=== PATIENT | female | born 1980 | race Caucasian/White ===

== ENCOUNTER 2019-11-07 10:01 | Outpatient (CLI) | payer MEDICAID, SELFPAY ==
--- NOTE | 2019-11-07 | XR_ITS ---
WS: [id number] FOOT LEFT TECHNIQUE: 3 views of the left foot CLINICAL INFORMATION: LEFT FOOT PAIN COMPARISON: None. FINDINGS: No evidence of acute fracture or dislocation. Normal tarsal metatarsal alignment. Normal calcaneus. N ormal visualized talar dome. No acute findings. Prominent plantar calcaneal spurring. XR/XR foot LT min 3V* [id number] IMPRESSION: 1. Fifth metatarsal normal in appearance. No acute fractures. 2. Prominent plantar calcaneal spurring.
== END 2019-11-07 10:02 | disposition home or self-care (01) ==
LOC: RADOUTREAD 12:19
PROVIDERS: Family Provider Family Medicine; PCP Family Medicine; Visit Provider Family Medicine
DX: M77.32 Calcaneal spur, left foot (principal); M79.672 Pain in left foot

== ENCOUNTER → 2019-11-26 08:00 | Outpatient (BNVA) | payer MEDICAID, SELFPAY | PROVIDERS: Family Provider Family Medicine; PCP Family Medicine; Visit Provider Nurse Practitioner | DX: F43.12 Post-traumatic stress disorder, chronic (principal); G47.30 Sleep apnea, unspecified; F60.3 Borderline personality disorder | CPT/HCPCS: 99213 ==

== ENCOUNTER → 2019-11-29 10:21 | Outpatient (BNVA) | payer MEDICAID, SELFPAY | PROVIDERS: Family Provider Family Medicine; PCP Family Medicine; Visit Provider Social Worker | DX: F43.12 Post-traumatic stress disorder, chronic (principal); F60.3 Borderline personality disorder | CPT/HCPCS: 90834 ==

== ENCOUNTER → 2019-12-10 11:40 | Outpatient (BNVA) | payer OTHER, SELFPAY | PROVIDERS: Family Provider Family Medicine; PCP Family Medicine; Visit Provider Nurse Practitioner | DX: F60.3 Borderline personality disorder (principal); Z79.899 Other long term (current) drug therapy | CPT/HCPCS: 80061; 83036 ==

== ENCOUNTER → 2020-01-02 08:44 | Outpatient (BNVA) | payer MEDICAID, SELFPAY | PROVIDERS: Family Provider Family Medicine; PCP Family Medicine; Visit Provider Specialist | DX: G43.711 Chronic migraine without aura, intractable, with status migrainosus (principal); F17.210 Nicotine dependence, cigarettes, uncomplicated; J06.9 Acute upper respiratory infection, unspecified | CPT/HCPCS: 96372; 99213; J1885 ==

== ENCOUNTER 2020-01-04 19:09 | Emergency (ER) | payer MEDICAID, SELFPAY ==
[2019-12-11 12:15] VITALS: BP 149/98; BMI 57.3
[2020-01-04 19:22] VITALS: BP 160/106; PULSE 101; RESP 18; TEMP 36.9; O2SAT 98; BMI 56.7
--- NOTE | 2020-01-04 19:44 | W.ED.FEMALGU ---
HPI - Female Genitourinary General: Chief complaint: Urogenital-Female Stated complaint: labia injury Time Seen by Provider: 01/04/20 19:37 History of Present Illness: HPI Narrative: Patient has a pain flare down in her pubic area where she shaves. Onset (ago): day(s) Location of symptoms: other (Pubic area) Severity: mild Female Urogenital Radiation: Non-Radiating Quality of pain: sharp Consistency: constant Date of Last Menstrual Period: 08/28/18 Review of Systems Const: Denies: fever or chills Skin/Breast: Reports: skin tenderness and skin swelling PFS ED PFSH: Social History Smoking and tobacco status: current every day smoker cigarettes Packs smoked per day: 0.5 Years cigarettes smoked: 23 Quit status (tobacco): has tried quititng Second hand smoke exposure: Yes Smoking risk assessment/counseling performed?: Yes Tobacco counseling given: counseling >3 minutes Alcohol intake: current Alcohol intake frequency: holidays/special occasions only Desire information about alcohol rehabilitation?: No Desire information about substance/drug rehabilitation?: No Counseling given: Yes Adopted: No Caregiver/support person: No Lives independently: Yes Household members: children Housing: Manufactured/Mobile home Marital status: Number of children: 3 Number of grandchildren: 0 Highest education level completed: Some College, No Degree 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, 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, 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 service: No Current occupational status: disabled Pets and animals: Yes Pets & animals: cat(s) and dog(s) History of recent travel: No Leisure activites: music, games and other Leisure activities details: color and play cards Sexually active: No Current gender identity: Female Carolee/Buddhist: Other Special carolee needs: No ( Judie ) Agree to transfusion: Yes Financial difficulty paying for basics: Somewhat Hard Female Reproductive History: Date of last menstrual period: 08/28/18 Para: 3 Spontaneous abortions: No Physical Exam Const: COMMON NORMALS: apparent distress : EXTERNAL FEMALE EXAM: Yes other (With the nurse in the room [place]. I examined her that sore in her pubic area up north of the labia on her left side she has a small pimple from shaving red irritated very small.) Psych: COMMON NORMALS: mental status grossly normal Course Vital Signs: Vital signs: Vital Signs Temperature 98.5 F 01/04/20 19:22 Pulse Rate 101 H 01/04/20 19:22 Respiratory Rate 18 01/04/20 19:22 Blood Pressure 160/106 01/04/20 19:22 Pulse Oximetry 98 01/04/20 19:22 Discharge Plan Discharge Prescriptions: No Action benzonatate [Tessalon Perles] 100 mg capsule 100 mg PO TID RF: 0 (DME) nebulizers Misc See Rx Instructions .ROUTE .MEDSUPPLY Qty: 1 RF: 0 topiramate [Topamax] 100 mg tablet 100 mg PO DAILY Qty: 30 RF: 6 sumatriptan succinate [Imitrex] 100 mg tablet 100 mg PO Q2H PRN (Reason: migraine headache) Qty: 9 RF: 6 Aimovig Autoinjector 140 mg/mL auto-injector 140 mg SUBCUT .MONTHLY Qty: 1 RF: 6 lorazepam [Ativan] 1 mg tablet 1 mg PO BID PRNRF: 0 aripiprazole [Abilify] 5 mg tablet 5 mg PO DAILY Qty: 30 RF: 1 duloxetine [Cymbalta] 60 mg capsule,delayed release(DR/EC) 60 mg PO BID Qty: 60 RF: 1 ropinirole [Requip XL] 2 mg tablet extended release 24 hr 2 mg PO BID Qty: 60 RF: 1 albuterol sulfate [ProAir HFA] 90 mcg/actuation HFA aerosol inhaler 2 puff INHALATION Q6H PRNRF: 0 Coding Level of Care Code ED 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
[2020-01-04] MEDS: sulfamethoxazole-trimeth DS 160-800 mg Tablet 1 TAB PO (20:08)
[2020-01-04 20:16] VITALS: PULSE 72; RESP 16; TEMP 36.9; O2SAT 97
== END 2020-01-04 20:18 | disposition home or self-care (01) ==
LOC: ER 19:51
PROVIDERS: Emergency Provider Nurse Practitioner Family; Family Provider Family Medicine; PCP Family Medicine
DX: R23.8 Other skin changes (principal); F17.210 Nicotine dependence, cigarettes, uncomplicated
CPT/HCPCS: 12345; 99281; 99282

== ENCOUNTER 2020-01-14 14:31 | Outpatient (CLI) | payer MEDICAID, SELFPAY ==
[2019-12-11 12:15] VITALS: BP 149/98; BMI 57.3
== END 2020-01-14 14:32 | disposition home or self-care (01) ==
LOC: SPT 14:31
PROVIDERS: Family Provider Family Medicine; PCP Family Medicine; Visit Provider Podiatrist Foot & Ankle Surgery
DX: Z46.89 Encounter for fitting and adjustment of other specified devices (principal); S86.012S Strain of left Achilles tendon, sequela; X58.XXXS Exposure to other specified factors, sequela
CPT/HCPCS: L4397

== ENCOUNTER → 2020-02-06 07:40 | Outpatient (BNVA) | payer MEDICAID, SELFPAY | PROVIDERS: Family Provider Family Medicine; PCP Family Medicine; Visit Provider Social Worker | DX: F43.12 Post-traumatic stress disorder, chronic (principal); F60.3 Borderline personality disorder | CPT/HCPCS: 90834 ==

== ENCOUNTER → 2020-02-26 07:38 | Outpatient (BNVA) | payer MEDICAID, SELFPAY | PROVIDERS: Family Provider Family Medicine; PCP Family Medicine; Visit Provider Nurse Practitioner | DX: F60.3 Borderline personality disorder (principal); G47.30 Sleep apnea, unspecified; F43.12 Post-traumatic stress disorder, chronic | CPT/HCPCS: 99213 ==

== ENCOUNTER → 2020-03-19 08:53 | Outpatient (BNVA) | payer MEDICAID, SELFPAY ==
[2019-12-11 12:15] VITALS: BP 149/98; BMI 57.3
== END ==
PROVIDERS: Family Provider Family Medicine; PCP Family Medicine; Visit Provider Podiatrist Foot & Ankle Surgery
DX: S86.012S Strain of left Achilles tendon, sequela (principal); X58.XXXS Exposure to other specified factors, sequela; M77.32 Calcaneal spur, left foot
CPT/HCPCS: 73650

== ENCOUNTER 2020-03-24 06:48 | Outpatient (CLI) | payer MEDICAID, SELFPAY ==
[2019-12-11 12:15] VITALS: BP 149/98; BMI 57.3
--- NOTE | 2020-03-24 07:15 | MR_ITS ---
WS: [id number] MRI LEFT FOOT without CONTRAST. COMPARISON: 06/21/2014 Multiplanar, multisequence imaging is performed without contrast. Marker is placed over the posterior foot at the level of the distal calcaneus. No complete Achilles t endon tear. There is increased signal involving greater than 50% of the width of the Achilles tendon at its insertion site to the calcaneus. The medial portion of the tendon is still intact. There is a small amount of increased T2 signal in the central tendon. There is a very small amount of increased fluid anterior to the distal tendon. Small amount of edema surrounding the distal Achilles tendon an d within the soft tissues. No marrow edema. There is mild enlargement and protuberance of the peroneal tubercle. Resulting in mild displacement o f the peroneal tendons. There is slight intermediate signal on the T1 sequences within the peroneal b molly tendon as it passes by the tubercle. There is a very small amount of increased T2 signal within the posterior surface of the peroneus brevis suspicious for split tear. MR/MR foot LT wo con* [id number] IMPRESSION: 1. High-grade insertional site tear of the Achilles tendon. Tear extends to gr eater than 50% of the insertion site and greatest laterally. 2. Tendinopathy with partial split tear in the peroneus brevis near the promi nent peroneal tubercle.
== END 2020-03-24 06:49 | disposition home or self-care (01) ==
LOC: RADSHAW 06:50
PROVIDERS: Family Provider Family Medicine; PCP Family Medicine; Visit Provider Podiatrist Foot & Ankle Surgery
DX: S86.012A Strain of left Achilles tendon, initial encounter (principal); X58.XXXA Exposure to other specified factors, initial encounter
CPT/HCPCS: 73718

== ENCOUNTER 2020-03-28 06:00 | Day surgery (SDC) | payer MEDICAID, SELFPAY ==
[2019-12-11 12:15] VITALS: BP 149/98; BMI 57.3
[2020-03-27 11:11] VITALS: BMI 56.7
[2020-03-28] VITALS (11 sets, daily range): BP systolic 108–137; BP diastolic 74–97; PULSE 80–100; RESP 14–30; TEMP 36–36.3; O2SAT 95–100
--- NOTE | 2020-03-28 | XR_ITS ---
WS: [id number] XR calcaneus LT min 2V [id number] REASON FOR EXAM: LEFT achilles heel repair FINDINGS: Interoperative localization film shows a large calcaneal spur. Appears be posterior changes along the posterior calcaneus. XR/XR calcaneus LT min 2V [id number] IMPRESSION: . Postop changes near the Achilles insertion.
[2020-03-28] MEDS: sodium chloride 0.9% 1,000 ML 30 ML IV (06:49)
--- NOTE | 2020-03-28 06:50 | P.HPUD_ITS ---
Surgery/Procedure H&P Update DATE OF PROCEDURE: March 28, 2020 DATE H&P PERFORMED: 03/19/20 H&P UPDATE INFORMATION: I have reviewed H&P completed within last 30 days, I have examined patient prior to procedure, No changes to prior documentation and H&P is in [facility] [place] EMR on date indicated PREOP DIAGNOSIS: Left Achilles tendon tear PLANNED PROCEDURE: Operation Date: 03/28/20 07:20 Proposed Procedures p achilles Tendon Repair Foot with calcaneal exostectomy possible flexor hallucis longus tendon transfer, left [id number]/m76.62(Left) - Sonny Aponte DPM
--- NOTE | 2020-03-28 06:51 | P.ANESASSM_ITS ---
Pre-Anesthetic Assessment Pre-Anesthetic Assessment: Height/Weight: Height 1.73 m Weight 169.19 kg Temp Pulse Resp BP Pulse Ox 97.4 F L 82 18 123/84 97 03/28/20 06:22 03/28/20 06:22 03/28/20 06:22 03/28/20 06:22 03/28/20 06:22 Preop Diagnosis: Left Achilles tendon tear Proposed Procedure: Operation Date: 03/28/20 07:20 Proposed Procedures p achilles Tendon Repair Foot with calcaneal exostectomy [id number]/m76.62(Left) - Sonny Aponte DPM Last intake: Intake Last Liquid Date 03/27/20 Last Liquid Time 21:00 Last Solid Date 03/27/20 Last Solid Time 21:00 Social: Social History: Tobacco and No alcohol Exam: Pre-Anes Outpt Exam: alert, oriented x 3 and regular rate & rhythm Additional Exam Findings (including area of procedure): BS distant Airway: Submandibular: WNL Cervical ROM: WNL MP: 2 Dentition: False (upper and lower) History/ROS: No significant history except as noted Pulmonary: Pulmonary: COPD, FOSTER and Sleep apnea CV/HEM: CV/HEM: HTN : : None reported Hepatic: Hepatic: None reported GI: GI: None reported Metabolic: Metabolic: Morbid obesity Musc/skel: Musc/skel: Lower Back Pain and OA/DJD Neuropsych: Neuropsych: Anxiety, Bipolar, Depression and Neuropathy (feet) Anesthetic Plan: ASA status: 3 Anesthesia: Anesthesia Evaluation, General and MAC Risk of > 500 ml blood loss (7ml/kg in children): No Meds/Allergies Current Medications: Current Medications Generic Name Dose Route Start Last Admin Trade Name Freq PRN Reason Stop Dose Admin Sodium Chloride 1,000 mls @ 30 ml s/hr 03/28/20 06:15 03/28/20 06:49 Sodium Chloride 0.9% IV 03/29/20 06:14 30 mls/hr .Q24H JUD Administration PFSH Anesthesia PFSH: Medical History (Updated 03/28/20 @ 06:51 by Herbie Powell MD) Borderline personality disorder Common migraine with intractable migraine Post-traumatic stress disorder, chronic Sleep apnea, unspecified Surgical History History of bladder repair surgery History of endometrial ablation History of hysterectomy History of shoulder surgery History of tubal ligation Family History Brother Diabetes Mother , Acute leukemia at age 42 Cancer Father Cancer Stage IV Kidney Cancer Social History Smoking and tobacco status: current every day smoker cigarettes Packs smoked per day: 0.5 Years cigarettes smoked: 23 Quit status (tobacco): has tried quititng Second hand smoke exposure: Yes Smoking risk assessment/counseling performed?: Yes Tobacco counseling given: counseling >3 minutes Alcohol intake: current Alcohol intake frequency: holidays/special occasions only Desire information about alcohol rehabilitation?: No Desire information about substance/drug rehabilitation?: No Counseling given: Yes Adopted: No Caregiver/support person: No Lives independently: Yes Household members: children Housing: Manufactured/Mobile home Marital status: Number of children: 3 Number of grandchildren: 0 Highest education level completed: Some College, No Degree 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, 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, 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
--- NOTE | 2020-03-28 08:45 | PM.OP ---
Operative Report Date of procedure: March 28, 2020 Pre-op Diagnosis: Left Achilles tendon tear Post-op diagnosis: same Post-op Findings: Partial tear of left Achilles tendon at insertion. Procedure Done: Achilles tendon repair left. Implants: Arthrex speed bridge, 3-0 Vicryl, 4-0 Vicryl, 4-0 nylon Specimens removed/disposition: None Pathology: none sent Surgeon: Sonny Aponte D.P.M. Pediatric Neurologist: French Anesthesia: General Estimated blood loss: 5 mL Tourniquet time: 62 minutes IV fluids: None Urine output: None Complications: None Findings: Partial tear of left Achilles tendon less than 50% just proximal to insertion. Condition: stable Disposition: PACU Brief History: Patient has had persistent pain at left Achilles tendon near insertion with an osseous bump, has failed [id number] NSAIDs, oral steroids, heel lift, offloading with cam boot, physical therapy has had persistent and progressive pain to the point where she has difficulty enjoying hobbies, recreation and caring her everyday activities. She would like to proceed with surgical intervention with repair of her Achilles tendon, and MRI shows high-grade tear just proximal to insertion. Risks include pain, bleeding, numbness, infection, surgical site dehiscence, Achilles tendon rupture, equinus contracture, damage to adjacent soft tissue structures, neuritis, need for further surgical intervention. Patient is agreeable and wishes to proceed signed consent, initialed left lower extremity. Procedure: Under mild sedation the patient was brought to the operating room and placed on the operating table in supine position. A timeout was performed. Anesthesia was administered by the anesthesia service. Well-padded pneumatic tourniquet was applied to the left high calf. Patient was placed in a prone position with appropriate padding and offloading. Left lower extremity was extenuated with an Esmarch bandage and the tourniquet inflated to 250 mmHg. Attention was directed to the posterior left Achilles where a linear longitudinal incision was made approximately 7 cm in length at distal Achilles coursing to its insertion at posterior calcaneus. Dissection was carried down sharply down to the peritenon which was incised longitudinally exposing the Achilles tendon. There was degeneration consistent with mucoid degeneration just proximal to insertion more prominent laterally. This was sharply debrided. The Achilles tendon was sharply excised and reflected off the posterior calcaneus. A fluid-filled bursa just anterior this was sharply excised once visualized with clean healthy margin. Achilles tendon was debrided of all devitalized tissue down to healthy tendon. Weight was passed from operative field. Sagittal saw utilized to resect the dorsal osseous prominence at the calcaneal tubercle all rough edges were smoothed with a power rasp. Incision site was flushed with copious amounts of sterile saline solution. Achilles tendon was reattached to healthy cancellous bone utilizing Arthrex speed bridge with excellent tendon to cancellous bone interface, tendon was pulled out to length and noted to have a stable fixation. Excess fiber tape was cut total of 4 anchors were utilized these were 4.75 anchors utilizing manufacture recommendation of drill, tap and insertion. Further irrigation with saline solution was performed. Peritenon was then reapproximated utilizing 3-0 Vicryl. Subcutaneous tissue closed utilizing 4-0 Vicryl and skin closed utilizing 4-0 nylon. Jumpstart applied at the incision provided by Arthrex in the pill pack. Followed by sterile 4 x 4's, Kerlix and well-padded multilayer compressive posterior splint with the ankle in equinus position. Tourniquet was deflated and a prompt hyperemic response was noted to the distal digits of the left foot. Patient tolerated the procedure well and was transferred to the PACU with vital signs stable and vascular status intact. Following a period of postoperative monitoring she will be discharged home is to remain strict nonweightbearing she does have a knee scooter she was prescribed Percocet 10/325 was brought also provided my cell phone number is to contact me with any postoperative questions or concerns over the weekend.
[2020-03-28] MEDS: fentaNYL 50 mcg/mL INJ 2mL IVP ×2 (09:13→09:18)
== END 2020-03-28 10:12 | disposition home or self-care (01) ==
PROVIDERS: PCP Family Medicine; Visit Provider Podiatrist Foot & Ankle Surgery
PROC: (CPT 27650; principal; 2020-03-28 07:00)
DX: S86.012A Strain of left Achilles tendon, initial encounter (principal); X58.XXXA Exposure to other specified factors, initial encounter; J44.9 Chronic obstructive pulmonary disease, unspecified; G47.30 Sleep apnea, unspecified; I10 Essential (primary) hypertension; E66.01 Morbid (severe) obesity due to excess calories; Z68.43 Body mass index [BMI] 50.0-59.9, adult; M19.90 Unspecified osteoarthritis, unspecified site; F41.9 Anxiety disorder, unspecified; F17.210 Nicotine dependence, cigarettes, uncomplicated
CPT/HCPCS: 27650; 12345; 73650; 76000; C1713; J0330; J0690; J2001; J2405; J2704; J3010; J3490; J7030

== ENCOUNTER 2020-04-05 18:38 | Emergency (ER) | payer MEDICAID, SELFPAY ==
[2019-12-11 12:15] VITALS: BP 149/98; BMI 57.3
[2020-04-05 18:45] VITALS: BP 133/78; PULSE 94; RESP 20; TEMP 36.9; O2SAT 94; BMI 56.7
[2020-04-05 19:19] LABS: Basophils % 0.1 %; Eosinophils # 0.5 10^3/uL (0.0-0.8); Eosinophils % 6.2 %; Hematocrit 38.9 % (37.0-47.0); Hemoglobin 12.2 g/dL (11.5-15.3); Lymphocytes # 1.5 10^3/uL (0.8-4.8); Lymphocytes % 21.2 %; Mean Corpuscular HGB Conc 31.4 g/dL (30.0-36.0); Mean Corpuscular Volume 92.4 fL (81-99); Mean Platelet Volume 9.3 fL (7.4-10.4); Monocytes # 0.4 10^3/uL (0.2-0.9); Neutrophils # 4.9 10^3/uL (1.8-7.7); Neutrophils % 67.1 %; Nucleated Red Blood Cells % 0 %; Platelet Count 209 10^3/cmm (130-400); Red Blood Count 4.21 10^6/uL (4.1-5.3); Red Cell Distribution Width 14.4 % (12.1-15.1); White Blood Count 7.2 10^3/uL (4.0-10.0)
[2020-04-05 19:24] LABS: INR 0.99 (0.8-1.2)
[2020-04-05 19:33] LABS: Alanine Aminotransferase 45 U/L (0-33); Albumin Level 3.7 g/dL (3.5-5.2); Alkaline Phosphatase 77 IU/L (35-105); Anion Gap 13.1 (5-19); Aspartate Amino Transferase 27 U/L (0-32); Blood Urea Nitrogen 13 mg/dL (6-20); Calcium 8.9 mg/dL (8.5-10.5); Carbon Dioxide 26 mmol/L (22-29); Chloride 103 mmol/L (98-107); Glomerular Filtration Rate 110.2 mL/min (90-130); Glucose 108 mg/dL (65-115); Osmolality Calculated 283 mOsm/kg (285-295); Potassium 4.1 mmol/L (3.5-5.1); Sodium 138 mmol/L (136-145); Total Bilirubin 0.2 mg/dL (0.15-1.2); Total Protein 6.7 g/dL (6.6-8.7)
--- NOTE | 2020-04-05 19:36 | ED_ITS ---
HPI - General Adult General: Chief complaint: General Medical Stated complaint: possible clot left leg/phy ref Time Seen by Provider: 04/05/20 19:36 Source: patient Mode of arrival: ambulatory Limitations: no limitations History of Present Illness: HPI narrative: Patient comes in today for complaints of left lower leg pain and swelling. Patient has a history of an Achilles tendon repair and bone spur removal done on 28 March. Patient appears well. Patient appears in moderate pain. Review of Systems General: Reports: 10 or more systems reviewed and unremarkable except in HPI and below Musc: Reports: extremity pain (Left lower leg) PFSH ED PFSH: Medical History (Updated 04/05/20 @ 21:03 by ZUHAIR Ruby) Borderline personality disorder Common migraine with intractable migraine Post-traumatic stress disorder, chronic Sleep apnea, unspecified Surgical History History of bladder repair surgery History of endometrial ablation History of hysterectomy History of shoulder surgery History of tubal ligation Family History Brother Diabetes Mother , Acute leukemia at age 42 Cancer Father Cancer Stage IV Kidney Cancer Social History Smoking and tobacco status: current every day smoker cigarettes Packs smoked per day: 0.5 Years cigarettes smoked: 23 Quit status (tobacco): has tried quititng Second hand smoke exposure: Yes Smoking risk assessment/counseling performed?: Yes Tobacco counseling given: counseling >3 minutes Alcohol intake: current Alcohol intake frequency: holidays/special occasions only Desire information about alcohol rehabilitation?: No Desire information about substance/drug rehabilitation?: No Counseling given: Yes Adopted: No Caregiver/support person: No Lives independently: Yes Household members: children Housing: Manufactured/Mobile home Marital status: Number of children: 3 Number of grandchildren: 0 Highest education level completed: Some College, No Degree 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, 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, 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 service: No Current occupational status: disabled Pets and animals: Yes Pets & animals: cat(s) and dog(s) History of recent travel: No Leisure activites: music, games and other Leisure activities details: color and play cards Sexually active: No Current gender identity: Female Carolee/Temple: Other Special carolee needs: No ( Judie ) Agree to transfusion: Yes Financial difficulty paying for basics: Somewhat Hard Female Reproductive History: Date of last menstrual period: 08/28/18 Para: 3 Spontaneous abortions: No Physical Exam Const: COMMON NORMALS: no acute distress and patient oriented x3 GENERAL APPEARANCE: cooperative HENMT: COMMON NORMALS: normocephalic and Normal external nose present HEAD & SCALP: normal to inspection and normocephalic NOSE: Normal external nose present MOUTH: Normal oral and palatal mucosa present THROAT: posterior oropharynx normal Eye: GENERAL EYE: appearance normal, both eyes and all related structures Neck/C-Spine: COMMON NORMALS: full ROM Lymph: LYMPHATIC: no lymphadenopathy noted Chest: COMMONS NORMALS: normal inspection of the chest Resp: COMMON NORMALS: normal respiratory effort EFFORT & INSPECTION: Yes able to speak in complete sentences Cardio: COMMON NORMALS: regular rate and regular rhythm RATE: regular rate RHYTHM: regular rhythm GI: COMMON NORMALS: non-tender Back/Pelvis: COMMON NORMALS: thoracic and lumbar spine normal to inspection Extremity: NARRATIVE EXTREMITY EXAM: Well-healing wound to the heel of the posterior heel of the left foot. Minimal swelling is noted as compared to the right leg. Pulses are intact. No significant redness or heat is noted to the extremity. Neuro: COMMON NORMALS: patient oriented x3 and moves all extremities Psych: COMMON NORMALS: mental status grossly normal and cooperative Skin: COMMON NORMALS: no rashes or lesions noted GENERAL SKIN EXAM: no rashes or lesions noted Course Vital Signs: Vital signs: Vital Signs Temperature 98.5 F 04/05/20 18:45 Pulse Rate 84 04/05/20 20:00 Respiratory Rate 18 04/05/20 20:00 Blood Pressure 129/66 04/05/20 20:00 Pulse Oximetry 96 04/05/20 20:00 MDM - General Adult MDM Narrative: Medical decision making narrative: Patient comes in today for complaints of pain to the left lower extremity. Patient had surgery on an Achilles tendon rupture about 1 week ago. Patient was having significant and increase and pain and tingling to the leg. Patient talked to her surgeon who recommended she be evaluated in ER for blood clot. Exam noted some increased swelling to the left lower extremity. Surgical wound appeared well approximated without significant redness or drainage. Vital signs were normal. Differential diagnosis includes wound infection, DVT, cellulitis. Laboratory values were significant for a slightly elevated d-dimer. Venous Doppler study was negative for DVT. Reviewed exam with patient with recommendations for treatment and follow-up. Patient reported understanding agreed to plan. Lab Data: Labs: Lab Results 04/05/20 04/05/20 04/05/20 Range/Units 19:13 19:13 19:13 WBC 7.2 (4.0-10.0) 10^3/ uL RBC 4.21 (4.1-5.3) 10^6/u L Hgb 12.2 (11.5-15.3) g/dL Hct 38.9 (37.0-47.0) % MCV 92.4 (81-99) fL MCH 29.0 (28.0-34.0) pg MCHC 31.4 (30.0-36.0) g/dL RDW 14.4 (12.1-15.1) % Plt Count 209 (130-400) 10^3/c mm MPV 9.3 (7.4-10.4) fL Neut % (Auto) 67.1 % Lymph % (Auto) 21.2 % Iron % (Auto) 5.0 % Eos % (Auto) 6.2 % Baso % (Auto) 0.1 % Neut # (Auto) 4.9 (1.8-7.7) 10^3/u L Lymph # (Auto) 1.5 (0.8-4.8) 10^3/u L Iron # (Auto) 0.4 (0.2-0.9) 10^3/u L Eos # (Auto) 0.5 (0.0-0.8) 10^3/u L Baso # (Auto) 0.0 (0.0-0.1) 10^3/u L Nucleated RBC % (a uto) 0 % Nucleated RBCs # 0.0 /100WBC PT 13.40 H (10.5-13.3) SECO NDS INR 0.99 (0.8-1.2) APTT 29.0 (23.9-36.7) SECO NDS D-Dimer 0.60 H (0-0.59) ug/mIFE U Sodium 138 (136-145) mmol/L Potassium 4.1 (3.5-5.1) mmol/L Chloride 103 (98-107) mmol/L Carbon Dioxide 26 (22-29) mmol/L Anion Gap 13.1 (5-19) BUN 13 (6-20) mg/dL Creatinine 0.6 (0.5-0.9) mg/dL GFR Calculation 110.2 (90-130) mL/min Glucose 108 (65-115) mg/dL Calculated Osmolal ity 283 L (285-295) mOsm/k g Calcium 8.9 (8.5-10.5) mg/dL Total Bilirubin 0.2 (0.15-1.2) mg/dL AST 27 (0-32) U/L ALT 45 H (0-33) U/L Alkaline Phosphata se 77 (35-105) IU/L Total Protein 6.7 (6.6-8.7) g/dL Albumin 3.7 (3.5-5.2) g/dL Globulin 3.0 (1.3-4.6) g/dL Discharge Plan Discharge Patient Disposition: Home, Self-Care Clinical Impression: Left leg pain Partial tear of left Achilles tendon Qualifiers: Encounter type: subsequent encounter Qualified Code(s): S86.012D - Strain of left Achilles tendon, subsequent encounter Condition: Stable Prescriptions: No Action (DME) nebulizers Misc See Rx Instructions .ROUTE .MEDSUPPLY Qty: 1 RF: 0 topiramate [Topamax] 100 mg tablet 100 mg PO DAILY Qty: 30 RF: 6 sumatriptan succinate [Imitrex] 100 mg tablet 100 mg PO Q2H PRN (Reason: migraine headache) Qty: 9 RF: 6 Aimovig Autoinjector 140 mg/mL auto-injector 140 mg SUBCUT .MONTHLY Qty: 1 RF: 6 lisinopril 10 mg tablet 10 mg PO DAILY RF: 0 aripiprazole [Abilify] 5 mg tablet 5 mg PO DAILY Qty: 30 RF: 2 ropinirole [Requip XL] 2 mg tablet extended release 24 hr 2 mg PO BID Qty: 60 RF: 2 duloxetine [Cymbalta] 60 mg capsule,delayed release(DR/EC) 60 mg PO BID Qty: 60 RF: 2 (DME) Night splint Qty: 1 RF: 0 albuterol sulfate [ProAir HFA] 90 mcg/actuation HFA aerosol inhaler 2 puff INHALATION Q6H PRN (Reason: shortness of breath) RF: 0 hydrocodone-acetaminophen [Farnsworth] 10-325 mg tablet 1 tab PO Q4H MDD 5 tablets max per day PRN (Reason: pain) 7 Days Qty: 35 RF: 0 hydrocodone-acetaminophen [Farnsworth] 10-325 mg tablet 1 tab PO Q4H PRN (Reason: pain) 7 Days Qty: 35 RF: 0 lorazepam [Ativan] 1 mg tablet 1 mg PO BID PRN (Reason: anxiety) Qty: 60 RF: 0 gabapentin 300 mg capsule 300 mg PO TID Qty: 90 RF: 0 hydrocodone-acetaminophen [Farnsworth] 10-325 mg tablet 1 tab PO Q4H PRN (Reason: pain) 7 Days Qty: 35 RF: 0 ibuprofen 800 mg Tablet 800 mg PO Q8H PRN (Reason: pain) RF: 0 Discharge Orders: Discharge Order (Routine); Ordered 04/05/20 Ordered By: Agustin Silva Referrals: Marcus Wills MD [Primary Care Provider] - Discharge Diet: Usual diet Discharge Activity: Increase activity as tolerated Activity Restrictions/Additional Instructions: Continue with medications as directed. Follow-up with Dr. Aponte on Tuesday. Continue with ice and heat for further pain relief. Return to the emergency room for high fever or new concerns. Coding Level of Care Code ED Dethistler Operator for Sheila Meraz Exam Comprehensive
--- NOTE | 2020-04-05 19:43 | USCV_ITS ---
Laila Mcclain Age: 39 Gender: F : 1980 Exam Date: 04/05/2020 20:45 Ordering Phys: Agustin Silva Technologist: NUBIA MAS Exam Location: [facility] [place] Indication: LEFT CALF PAIN PROCEDURES: Venous duplex imaging was performed in only the left lower extremity. The following venous structures were evaluated: common femoral vein, profunda vein, proximal portion of the greater saphenous vein, superficial femoral vein, and the popliteal vein. In addition, the posterior tibial and peroneal trunk were evaluated. Serial compression, augmentation maneuvers, and spectral Doppler flow evaluation were performed. FINDINGS: Normal 2-D Doppler and augmentation and compressibility throughout the lower extremity venous structures. Additional imaging through the proximal calf veins also reveals no thrombus. Limited evaluation of the greater saphenous vein is patent with no thrombus.. CONCLUSIONS No evidence of DVT in the above-mentioned identifiable veins. Dr Lucila Keith MD [facility] (Electronically Signed) Final Date: 06 April 2020 13:42 S
[2020-04-05] MEDS: HYDROcodone-acetaminophen 10-325 mg Tablet 1 TAB PO (19:56)
[2020-04-05 20:00] VITALS: BP 129/66; PULSE 84; RESP 18; O2SAT 96
[2020-04-05 21:43] VITALS: BP 121/78; PULSE 88; RESP 18; O2SAT 97
--- NOTE | 2020-04-07 16:42 | DCPLANNER ---
explosive ordnance manager had message to schedule a follow up appointment for patient with ortho. explosive ordnance manager called the ortho clinic, spoke with Pat, gave clinic patients information. explosive ordnance manager was told that patients information would be printed and reviewed. Clinic will call returned case inspector and patient with appointment information.
--- NOTE | 2020-04-08 08:13 | DCPLANNER ---
Patient has a follow up appointment scheduled for , April 10, 2020 at 1:[address] Aponte. Clinic will call patient with appointment information.
--- NOTE | 2020-04-22 14:33 | DCPLANNER ---
Patient did attend appointment scheduled for 04.10.20 with ortho.
== END 2020-04-05 21:44 | disposition home or self-care (01) ==
PROVIDERS: Emergency Provider Nurse Practitioner Family; PCP Family Medicine
DX: S86.012A Strain of left Achilles tendon, initial encounter (principal); X58.XXXA Exposure to other specified factors, initial encounter; F17.210 Nicotine dependence, cigarettes, uncomplicated
CPT/HCPCS: 12345; 29515; 80053; 85025; 85378; 85610; 85730; 93971; 99281; 99283

== ENCOUNTER 2020-04-10 15:58 | Outpatient (CLI) | payer MEDICAID, SELFPAY ==
[2019-12-11 12:15] VITALS: BP 149/98; BMI 57.3
== END 2020-04-10 15:59 | disposition home or self-care (01) ==
LOC: SPT 15:58
PROVIDERS: PCP Family Medicine; Visit Provider Podiatrist Foot & Ankle Surgery
DX: Z46.89 Encounter for fitting and adjustment of other specified devices (principal); S86.012D Strain of left Achilles tendon, subsequent encounter; X58.XXXD Exposure to other specified factors, subsequent encounter
CPT/HCPCS: 97760; L4361

== ENCOUNTER 2020-05-01 19:11 | Emergency (ER) | payer MEDICAID, SELFPAY ==
[2019-12-11 12:15] VITALS: BP 149/98; BMI 57.3
[2020-05-01 19:38] VITALS: BP 149/81; PULSE 112; RESP 14; TEMP 36.8; O2SAT 96; BMI 56.2
--- NOTE | 2020-05-01 21:32 | XRR_ITS ---
PROCEDURE INFORMATION: Exam: XR Left Foot Complete Exam date and time: 05/01/2020 10:09 PM Age: 39 years old Clinical indication: Injury or trauma; Injury history: Not specified; Initial encounter; Blunt trauma; Left; Injury date: 05/01/20; Prior surgery; Surgery date: 1-6 months; Patient HX: PT had surgery April 01, injured foot again 05/01/20 TECHNIQUE: Imaging protocol: XR Left foot. Views: 3 or more views. COMPARISON: CR XR foot LT min 3V* [id number] 11/07/2019 10:01 AM FINDINGS: Bones/joints: There is no acute fracture. There is bony defect along the posterior superior margin of the calcaneus likely related to Achilles tendon repair. There is no current acute avulsion fracture seen in this area. There is some soft tissue fullness adjacent to calcaneus at this level and correlate clinically if this is related to surgical change or if this is acute swelling suggesting acute soft tissue injury. There is plantar calcaneal spur which is unchanged. Joint spaces are maintained in alignment. Soft tissues: See Bones/joints finding. XR/XR foot LT min 3V* [id number] IMPRESSION: Evidence of postoperative changes at Achilles insertion. Soft tissue fullness in this location and correlate if this is postsurgical or represent acute soft tissue / tendon injury.
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
[2020-05-01] MEDS: diphenhydrAMINE 50 mg/mL SDV 1mL 25 MG IVP (23:23)
[2020-05-01] MEDS: metoclopramide 5 mg/mL SDV 2 mL 10 MG IVP (23:23)
[2020-05-01] MEDS: ketorolac 30 mg/mL INJ IVP (23:23)
[2020-05-01] MEDS: dexamethasone 10 mg/mL INJ IVP (23:23)
[2020-05-01] MEDS: sodium chloride 0.9% 1,000 ML 999 ML IV (23:24)
== END 2020-05-02 00:15 | disposition home or self-care (01) ==
PROVIDERS: Emergency Provider Physician Assistant; PCP Family Medicine
DX: M79.672 Pain in left foot (principal); G43.009 Migraine without aura, not intractable, without status migrainosus; F17.210 Nicotine dependence, cigarettes, uncomplicated
CPT/HCPCS: 12345; 73630; 96361; 96374; 96375; 99282; 99283; J1100; J1200; J1885; J2765; J7030

== ENCOUNTER → 2020-05-27 07:46 | Outpatient (BNVA) | payer MEDICAID, SELFPAY ==
[2019-12-11 12:15] VITALS: BP 149/98; BMI 57.3
== END ==
PROVIDERS: PCP Family Medicine; Visit Provider Nurse Practitioner
DX: F60.3 Borderline personality disorder (principal); F43.12 Post-traumatic stress disorder, chronic
CPT/HCPCS: 99213

== ENCOUNTER → 2020-06-24 07:55 | Outpatient (BNVA) | payer MEDICAID, SELFPAY ==
[2019-12-11 12:15] VITALS: BP 149/98; BMI 57.3
== END ==
PROVIDERS: PCP Family Medicine; Visit Provider Nurse Practitioner
DX: F60.3 Borderline personality disorder (principal); F43.12 Post-traumatic stress disorder, chronic
CPT/HCPCS: 99213

== ENCOUNTER → 2020-07-01 08:05 | Outpatient (BNVA) | payer MEDICAID, SELFPAY ==
[2019-12-11 12:15] VITALS: BP 149/98; BMI 57.3
== END ==
PROVIDERS: PCP Family Medicine; Visit Provider Specialist
DX: G43.019 Migraine without aura, intractable, without status migrainosus (principal); G62.9 Polyneuropathy, unspecified; F17.210 Nicotine dependence, cigarettes, uncomplicated
CPT/HCPCS: 99213

== ENCOUNTER 2020-08-20 19:07 | Emergency (ER) | payer MEDICAID, SELFPAY ==
[2019-12-11 12:15] VITALS: BP 149/98; BMI 57.3
[2020-08-20 19:23] VITALS: BP 142/93; PULSE 100; RESP 18; TEMP 36.8; O2SAT 96; BMI 59.3
--- NOTE | 2020-08-20 19:38 | ED_ITS ---
HPI - Female Genitourinary General: Chief complaint: Urogenital-Female Stated complaint: poss uti Time Seen by Provider: 08/20/20 19:36 History of Present Illness: HPI Narrative: Patient complains about left flank pain, olgiuria x2 days frequency also. Is nauseated denies any blood history of kidney stones. MD elicited complaint: UTI Pertinent past history: recurrent UTIs Onset (ago): day(s) (2) Location of symptoms: flank Severity: moderate Female Urogenital Radiation: LLQ Severity scale (1-10): 5 Quality of pain: sharp Consistency: constant Vaginal discharge: none Vaginal bleeding: none Urinary symptoms: Frequency and Urgency Exacerbating factors: none Relieving factors: none Associated symptoms: Reports nausea; Deny headache(s) Patient : No Date of Last Menstrual Period: 08/28/18 Review of Systems Const: Denies: fever(s), chills or body aches Eyes: Denies: change in vision or blurry vision ENMT: Denies: throat pain or nasal congestion Card: Denies: chest pain or dyspnea on exertion Resp: Denies: dyspnea, productive cough or non-productive cough GI: Reports: nausea : Reports: flank pain, urinary frequency and urinary urgency Musc: Denies: extremity pain Skin/Breast: Denies: rash Neuro: Denies: headache(s) Psych: Denies: anxiety or depression Karan/Lymph: Denies: easy bruising PFSH ED PFSH: Medical History (Updated 08/20/20 @ 21:30 by ZUHAIR Lopez) Borderline personality disorder Common migraine with intractable migraine Post-traumatic stress disorder, chronic Sleep apnea, unspecified Surgical History History of bladder repair surgery History of endometrial ablation History of hysterectomy History of shoulder surgery History of tubal ligation Family History Brother Diabetes Mother , Acute leukemia at age 42 Cancer Father Cancer Stage IV Kidney Cancer Social History Smoking and tobacco status: current every day smoker cigarettes Packs smoked per day: 0.5 Years cigarettes smoked: 23 Quit status (tobacco): has tried quititng Second hand smoke exposure: Yes Smoking risk assessment/counseling performed?: Yes Tobacco counseling given: counseling >3 minutes Alcohol intake: current Alcohol intake frequency: holidays/special occasions only Desire information about alcohol rehabilitation?: No Desire information about substance/drug rehabilitation?: No Counseling given: Yes Adopted: No Caregiver/support person: No Lives independently: Yes Household members: children Housing: Manufactured/Mobile home Marital status: Number of children: 3 Number of grandchildren: 0 Highest education level completed: Some College, No Degree 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, 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, 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 service: No Current occupational status: disabled Pets and animals: Yes Pets & animals: cat(s) and dog(s) History of recent travel: No Leisure activites: music, games and other Leisure activities details: color and play cards Sexually active: No Current gender identity: Female Carolee/Anabaptist: Other Special carolee needs: No ( Judie ) Agree to transfusion: Yes Financial difficulty paying for basics: Somewhat Hard Female Reproductive History: Date of last menstrual period: 08/28/18 Para: 3 Spontaneous abortions: No Physical Exam Const: COMMON NORMALS: no acute distress, average body habitus and patient oriented x3 HENMT: COMMON NORMALS: normocephalic HEAD & SCALP: normal to inspection and normocephalic FACE & SINUS: normal facial exam Eye: COMMON NORMALS: conjunctivae normal GENERAL EYE: appearance normal, both eyes and all related structures CONJUNCTIVA: Yes conjunctivae normal Neck/C-Spine: COMMON NORMALS: no JVD Chest: COMMONS NORMALS: normal inspection of the chest Resp: COMMON NORMALS: normal respiratory effort and clear to auscultation bilaterally AUSCULTATION: clear to auscultation bilaterally Cardio: COMMON NORMALS: no JVD, regular rate and regular rhythm RATE: regular rate RHYTHM: regular rhythm GI: COMMON NORMALS: Normal to inspection, nondistended, normoactive bowel sounds present : BLADDER/KIDNEY EXAM: Yes CVA tenderness on the left Back/Pelvis: GENERAL BACK: Yes CVA tenderness Extremity: COMMON NORMALS: normal to inspection and full ROM Neuro: COMMON NORMALS: patient oriented x3 Course Vital Signs: Vital signs: Vital Signs Temperature 98.2 F 08/20/20 19:23 Pulse Rate 90 08/20/20 21:44 Respiratory Rate 18 08/20/20 21:44 Blood Pressure 140/86 10/28/20 21:44 Pulse Oximetry 96 08/20/20 21:44 MDM - Female Lab Data: Labs: Lab Results 08/20/20 08/20/20 Range/Units 20:46 20:46 HCG, Qual Negative (Negative) Urine Color Yellow (Yellow) Urine Appearance Cloudy A (CLEAR) Urine pH 5.0 (5-7) Ur Specific Gravit y 1.030 (1.005-1.030) Urine Protein Neg (Negative) Urine Glucose (UA) Norm (Normal) Urine Ketones Negative (Negative) Urine Blood Neg (Negative) Urine Nitrate Negative (Negative) Urine Bilirubin Neg (Negative) Urine Urobilinogen 1 H (Negative) mg/dL Ur Leukocyte Belia ase Negative (Negative) Urine RBC 0-4 H (0-2) /hpf Urine WBC None (0-5) /hpf Ur Squamous Epith Cells 15-25 H (0-5) /hpf Calcium Oxalate Cr ystal Rare /hpf Amorphous Sediment Not Reportable Urine Bacteria 2+ H (NONE) /hpf Discharge Plan Discharge Patient Disposition: Home Clinical Impression: Urinary tract infection Qualifiers: Urinary tract infection type: acute cystitis Hematuria presence: without hematuria Qualified Code(s): N30.00 - Acute cystitis without hematuria Condition: Stable Prescriptions: New ciprofloxacin HCl 500 mg tablet 500 mg PO BID Qty: 14 RF: 0 Zofran 4 mg tablet 4 mg PO TID PRN (Reason: nausea and vomiting) 3 Days Qty: 9 RF: 0 No Action (DME) nebulizers Misc See Rx Instructions .ROUTE .MEDSUPPLY Qty: 1 RF: 0 topiramate [Topamax] 100 mg tablet 100 mg PO DAILY Qty: 30 RF: 6 sumatriptan succinate [Imitrex] 100 mg tablet 100 mg PO Q2H PRN (Reason: migraine headache) Qty: 9 RF: 6 Aimovig Autoinjector 140 mg/mL auto-injector 140 mg SUBCUT .MONTHLY Qty: 1 RF: 6 lisinopril 10 mg tablet 10 mg PO DAILY RF: 0 aripiprazole [Abilify] 5 mg tablet 5 mg PO DAILY Qty: 30 RF: 2 duloxetine [Cymbalta] 60 mg capsule,delayed release(DR/EC) 60 mg PO BID Qty: 60 RF: 2 ropinirole [Requip XL] 2 mg tablet extended release 24 hr 2 mg PO BID Qty: 60 RF: 2 lorazepam [Ativan] 1 mg tablet 1 mg PO BID PRN (Reason: anxiety) Qty: 60 RF: 0 (DME) heel lift See Rx Instructions .ROUTE .MEDSUPPLY Qty: 1 RF: 0 albuterol sulfate [ProAir HFA] 90 mcg/actuation HFA aerosol inhaler 2 puff INHALATION Q6H PRN (Reason: shortness of breath) RF: 0 ibuprofen 800 mg Tablet 800 mg PO Q8H PRN (Reason: pain) RF: 0 Zyrtec 10 mg Tablet 10 mg PO DAILY RF: 0 hydroxyzine HCl 50 mg tablet 50 mg PO BEDTIME PRN (Reason: sleep) RF: 0 Discharge Orders: Discharge Order (Routine); Ordered 08/20/20 Ordered By: Ayush Escobedo Referrals: Marcus Wills MD [Primary Care Provider] - Discharge Diet: Usual diet Discharge Activity: Increase activity as tolerated Patient Instructions: Urinary Tract Infection in Women (ED) Activity Restrictions/Additional Instructions: Follow-up with medical provider as directed. Take medications as prescribed. Return to the ER or your medical provider if condition worsens. Please read and understand discharge instructions. If any questions ask please. Discharge Date/Time: 08/20/20 21:51 Coding Level of Care Code ED Senior Accounting Associate for Sheila Meraz Exam Comprehensive
[2020-08-20] MEDS: ondansetron 4 MG Tablet PO (20:20)
[2020-08-20] MEDS: HYDROcodone-acetaminophen 5-325 mg Tablet 1 TAB PO (20:20)
[2020-08-20 21:15] LABS: HCG Qualitative Urine. Negative (Negative)
[2020-08-20 21:20] LABS: Bilirubin Urine Neg (Negative); Blood Urine Neg (Negative); Glucose Urine UA Norm (Normal); Ketones Urine Negative (Negative); Leukocyte Esterase Urine Negative (Negative); Nitrate Urine Negative (Negative); Protein Urine Neg (Negative); RBC Urine 0-4 /hpf (0-2); Urine Appearance Cloudy (CLEAR); Urine Color Yellow (Yellow); Urobilinogen Urine 1 mg/dL (Negative)
[2020-08-20 21:21] LABS: Add Urine Culture? No; Bacteria Urine 2+ /hpf; Calcium Oxalate Crystals Urine RARE /hpf; Squamous Epithelial Cell Urine 15-25 /hpf (0-5)
[2020-08-20 21:44] VITALS: BP 140/86; PULSE 90; RESP 18; O2SAT 96
--- NOTE | 2020-08-20 21:50 | PC.NURSE ---
This RN agrees with assessment charted by the deli department manager
== END 2020-08-20 21:51 | disposition home or self-care (01) ==
PROVIDERS: Emergency Medicine; Emergency Provider Nurse Practitioner Family; PCP Family Medicine
DX: N30.00 Acute cystitis without hematuria (principal); F17.210 Nicotine dependence, cigarettes, uncomplicated
CPT/HCPCS: 12345; 81001; 81025; 99282; 99283; Q0162

== ENCOUNTER → 2020-08-25 07:29 | Outpatient (BNVA) | payer MEDICAID, SELFPAY ==
[2019-12-11 12:15] VITALS: BP 149/98; BMI 57.3
== END ==
PROVIDERS: PCP Family Medicine; Visit Provider Nurse Practitioner
DX: F60.3 Borderline personality disorder (principal); G47.30 Sleep apnea, unspecified; F43.12 Post-traumatic stress disorder, chronic
CPT/HCPCS: 99213

== ENCOUNTER 2020-09-11 09:09 | Emergency (ER) | payer MEDICAID, SELFPAY ==
[2019-12-11 12:15] VITALS: BP 149/98; BMI 57.3
--- NOTE | 2020-09-11 09:12 | XR_ITS ---
WS: [id number] Exam: XR chest 1V portable [id number] Date/Time of Exam: 09/11/2020 9:12 AM Reason For Exam: cp Comparison 09/13/2019. Lungs are clear and fully inflated. Normal cardiomediastinal structures and regional bony elements. S cattered calcified granulomas in both lungs. No pleural effusions. XR/XR chest 1V portable [id number] IMPRESSION: 1. No acute cardiopulmonary finding.
--- NOTE | 2020-09-11 09:12 | ECG_ITS ---
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 Measurements Intervals [place] Rate: 87 P: 35 SC: 144 QRS: 49 QRSD: 88 T: 37 QT: 360 QTc: 435 Interpretive Statements SINUS RHYTHM Compared to ECG 01/06/2019 21:27:06 No significant changes Electronically Signed On 09-11-2020 22:00:13 ESL TUTOR by Lucila Keith M.D. [email or web address]
[2020-09-11 09:16] VITALS: BP 150/115; PULSE 109; RESP 20; TEMP 36.5; O2SAT 96
--- NOTE | 2020-09-11 09:19 | W.ED.CHESTPA ---
HPI - Chest Pain General: Chief Complaint: Chest Pain Stated Complaint: tightness in chest/pain in left arm Time Seen by Provider: 09/11/20 09:13 Source: patient Mode of arrival: ambulatory Limitations: no limitations History of Present Illness: HPI narrative: 39-year-old female states she started having left arm pain with some chest pain is a sharp pain at 4 this morning. States is been constant has had some shortness of breath. Denies any vomiting or diarrhea. Patient states her pain is currently a 4 out of 10. She does have a history of high blood pressure. MD complaint: chest pain Associated symptoms: Reports dyspnea; Deny abdominal pain, fever(s), nausea or vomiting Review of Systems Const: Denies: fever(s), chills, body aches or change in appetite Eyes: Denies: blurry vision or eye discomfort ENMT: Denies: throat pain or dental pain Card: Reports: chest pain Resp: Reports: dyspnea GI: Denies: abdominal pain, nausea, vomiting or diarrhea : Denies: dysuria Musc: Denies: neck pain or back pain Skin/Breast: Denies: rash Neuro: Denies: headache(s) Psych: Denies: depression Karan/Lymph: Denies: easy bruising All/Imm: Denies: urticaria PFSH ED PFSH: Medical History (Updated 09/11/20 @ 12:15 by Rose Suazo MD) Borderline personality disorder Common migraine with intractable migraine Post-traumatic stress disorder, chronic Sleep apnea, unspecified Surgical History History of bladder repair surgery History of endometrial ablation History of hysterectomy History of shoulder surgery History of tubal ligation Family History Brother Diabetes Mother , Acute leukemia at age 42 Cancer Father Cancer Stage IV Kidney Cancer Social History Smoking and tobacco status: current every day smoker cigarettes Packs smoked per day: 0.5 Years cigarettes smoked: 23 Quit status (tobacco): has tried quititng Second hand smoke exposure: Yes Smoking risk assessment/counseling performed?: Yes Tobacco counseling given: counseling >3 minutes Alcohol intake: current Alcohol intake frequency: holidays/special occasions only Desire information about alcohol rehabilitation?: No Desire information about substance/drug rehabilitation?: No Counseling given: Yes Adopted: No Caregiver/support person: No Lives independently: Yes Household members: children Housing: Manufactured/Mobile home Marital status: Number of children: 3 Number of grandchildren: 0 Highest education level completed: Some College, No Degree 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, 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, 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 service: No Current occupational status: disabled Pets and animals: Yes Pets & animals: cat(s) and dog(s) History of recent travel: No Leisure activites: music, games and other Leisure activities details: color and play cards Sexually active: No Current gender identity: Female Carolee/Caodaism: Other Special carolee needs: No ( Mireyaen ) Agree to transfusion: Yes Financial difficulty paying for basics: Somewhat Hard Female Reproductive History: Date of last menstrual period: 08/28/18 Para: 3 Spontaneous abortions: No Physical Exam Const: COMMON NORMALS: no acute distress, patient oriented x3 and healthy appearing NUTRITIONAL APPEARANCE: obese HENMT: COMMON NORMALS: normocephalic and atraumatic HEAD & SCALP: normocephalic and atraumatic Eye: COMMON NORMALS: Equal, round and reactive pupils present and EOMs intact bilaterally PUPIL: Yes Equal, round and reactive pupils present Neck/C-Spine: COMMON NORMALS: full ROM and supple Chest: COMMONS NORMALS: normal inspection of the chest and normal palpation of entire chest wall Resp: COMMON NORMALS: normal respiratory effort, No retractions, No use of accessory muscles and clear to auscultation bilaterally AUSCULTATION: clear to auscultation bilaterally Cardio: COMMON NORMALS: regular rate, regular rhythm and No murmurs present (Cardio) RATE: regular rate RHYTHM: regular rhythm GI: COMMON NORMALS: Normal to inspection, nondistended, normoactive bowel sounds present, Soft to palpation, non-tender and no masses PALPATION: Yes Soft to palpation Extremity: COMMON NORMALS: normal to inspection and full ROM Neuro: COMMON NORMALS: patient oriented x3, moves all extremities and no focal motor deficits Psych: COMMON NORMALS: mental status grossly normal, Normal thought process present and cooperative THOUGHT PROCESS: Normal thought process present Skin: COMMON NORMALS: no rashes or lesions noted and no wounds GENERAL SKIN EXAM: no rashes or lesions noted Course Vital Signs: Vital signs: Vital Signs Temperature 97.7 F 09/11/20 09:16 Pulse Rate 93 09/11/20 11:46 Respiratory Rate 18 09/11/20 12:50 Blood Pressure 146/113 09/11/20 12:50 Pulse Oximetry 97 09/11/20 12:50 MDM - Chest Pain MDM Narrative: Medical decision making narrative: Patient presents with chest pain that is atypical in nature and is mainly her arm and sharp in nature. She has been pain-free here in initial and repeat troponins are normal. Her EKG is normal as well. She has no signs of aortic dissection or pulmonary embolism. She is stable for discharge and is to follow-up with her primary care doctor in 2 to 4 days and return to the ER if worsening. She understands agrees to plan. Lab Data: Labs: Lab Results 09/11/20 09/11/20 09/11/20 Range/Units 09:20 09:20 09:20 WBC 8.6 (4.0-10.0) 10^3/ uL RBC 4.74 (4.1-5.3) 10^6/u L Hgb 13.6 (11.5-15.3) g/dL Hct 42.4 (37.0-47.0) % MCV 89.5 (81-99) fL MCH 28.7 (28.0-34.0) pg MCHC 32.1 (30.0-36.0) g/dL RDW 13.8 (12.1-15.1) % Plt Count 311 (130-400) 10^3/c mm MPV 9.7 (7.4-10.4) fL Neut % (Auto) 68.4 % Lymph % (Auto) 23.7 % [place] % (Auto) 4.5 % Eos % (Auto) 2.8 % Baso % (Auto) 0.3 % Neut # (Auto) 5.86 (1.8-7.7) 10^3/u L Lymph # (Auto) 2.0 (0.8-4.8) 10^3/u L [place] # (Auto) 0.4 (0.2-0.9) 10^3/u L Eos # (Auto) 0.2 (0.0-0.8) 10^3/u L Baso # (Auto) 0.0 (0.0-0.1) 10^3/u L Nucleated RBC % (a uto) 0 % Nucleated RBCs # 0.0 /100WBC Sodium 137 (136-145) mmol/L Potassium 4.6 (3.5-5.1) mmol/L Chloride 103 (98-107) mmol/L Carbon Dioxide 25 (22-29) mmol/L Anion Gap 13.6 (5-19) BUN 10 (6-20) mg/dL Creatinine 0.6 (0.5-0.9) mg/dL GFR Calculation 110.2 (90-130) mL/min Glucose 104 (65-115) mg/dL Calculated Osmolal ity 283 L (285-295) mOsm/k g Calcium 8.9 (8.5-10.5) mg/dL Total Bilirubin 0.3 (0.15-1.2) mg/dL AST 22 (0-32) U/L ALT 33 (0-33) U/L Alkaline Phosphata se 90 (35-105) IU/L Troponin T Baselin e 6 (0-10) ng/L Troponin T 120 Min samish (0-10) ng/L Delta Troponin T (0-10) ABS# Total Protein 6.5 L (6.6-8.7) g/dL Albumin 3.9 (3.5-5.2) g/dL Globulin 2.6 (1.3-4.6) g/dL 11/19/20 Range/Units 11:40 WBC (4.0-10.0) 10^3/ uL RBC (4.1-5.3) 10^6/u L Hgb (11.5-15.3) g/dL Hct (37.0-47.0) % MCV (81-99) fL MCH (28.0-34.0) pg MCHC (30.0-36.0) g/dL RDW (12.1-15.1) % Plt Count (130-400) 10^3/c mm MPV (7.4-10.4) fL Neut % (Auto) % Lymph % (Auto) % [place] % (Auto) % Eos % (Auto) % Baso % (Auto) % Neut # (Auto) (1.8-7.7) 10^3/u L Lymph # (Auto) (0.8-4.8) 10^3/u L [place] # (Auto) (0.2-0.9) 10^3/u L Eos # (Auto) (0.0-0.8) 10^3/u L Baso # (Auto) (0.0-0.1) 10^3/u L Nucleated RBC % (a uto) % Nucleated RBCs # /100WBC Sodium (136-145) mmol/L Potassium (3.5-5.1) mmol/L Chloride (98-107) mmol/L Carbon Dioxide (22-29) mmol/L Anion Gap (5-19) BUN (6-20) mg/dL Creatinine (0.5-0.9) mg/dL GFR Calculation (90-130) mL/min Glucose (65-115) mg/dL Calculated Osmolal ity (285-295) mOsm/k g Calcium (8.5-10.5) mg/dL Total Bilirubin (0.15-1.2) mg/dL AST (0-32) U/L ALT (0-33) U/L Alkaline Phosphata se (35-105) IU/L Troponin T Baselin e (0-10) ng/L Troponin T 120 Min samish 6.00 (0-10) ng/L Delta Troponin T 0 (0-10) ABS# Total Protein (6.6-8.7) g/dL Albumin (3.5-5.2) g/dL Globulin (1.3-4.6) g/dL Imaging Data^: CXR: Attestation: I personally reviewed and interpreted this imaging study as follows: Radiologist's impression: [address] [address] XRay Report Signed Patient: Laila Mcclain Unit #: [id number] : 1980 Age/Sex: 39 / F ADM Date: 09/11/20 Loc: ER Room/Bed: Attending Dr: Ordering Provider/Ordering MD: Rose Suazo MD Date of Service: 09/11/20 Procedure(s): XR chest 1V portable [id number] Accession Number(s): [id number] Report Number: [id number] WS: [id number] Exam: XR chest 1V portable [id number] Date/Time of Exam: 09/11/2020 9:12 AM Reason For Exam: cp Comparison 09/13/2019. Lungs are clear and fully inflated. Normal cardiomediastinal structures and regional bony elements. Scattered calcified granulomas in both lungs. No pleural effusions. XR/XR chest 1V portable [id number] IMPRESSION: 1. No acute cardiopulmonary finding. EKG Data^: EKG 1: Attestation: I personally reviewed and interpreted this EKG as follows: EKG interpretation date: 09/11/20 EKG interpretation time: 09:26 Interpretation: Normal sinus rhythm heart rate [address] or T wave abnormalities QRS 88 QTC 405 EKG 2: Attestation: I personally reviewed and interpreted this EKG as follows: EKG interpretation date: 09/11/20 EKG interpretation time: 12:15 Interpretation: Normal sinus rhythm heart rate 81 QRS 88 QTC 4 3 Discharge Plan Discharge Patient Disposition: Home Clinical Impression: Chest pain Qualifiers: Chest pain type: unspecified Qualified Code(s): R07.9 - Chest pain, unspecified Condition: Stable Prescriptions: No Action (DME) nebulizers Misc See Rx Instructions .ROUTE .MEDSUPPLY Qty: 1 RF: 0 topiramate [Topamax] 100 mg tablet 100 mg PO DAILY Qty: 30 RF: 6 sumatriptan succinate [Imitrex] 100 mg tablet 100 mg PO Q2H PRN (Reason: migraine headache) Qty: 9 RF: 6 Aimovig Autoinjector 140 mg/mL auto-injector 140 mg SUBCUT .MONTHLY Qty: 1 RF: 6 lisinopril 10 mg tablet 10 mg PO DAILY RF: 0 (DME) heel lift See Rx Instructions .ROUTE .MEDSUPPLY Qty: 1 RF: 0 albuterol sulfate [ProAir HFA] 90 mcg/actuation HFA aerosol inhaler 2 puff INHALATION Q6H PRN (Reason: shortness of breath) RF: 0 aripiprazole [Abilify] 5 mg tablet 5 mg PO DAILY Qty: 30 RF: 2 lorazepam [Ativan] 1 mg tablet 1 mg PO BID PRN (Reason: anxiety) Qty: 60 RF: 0 ropinirole [Requip XL] 2 mg tablet extended release 24 hr 2 mg PO BID Qty: 60 RF: 2 duloxetine [Cymbalta] 60 mg capsule,delayed release(DR/EC) 60 mg PO BID Qty: 60 RF: 2 ibuprofen 800 mg Tablet 800 mg PO Q8H PRN (Reason: pain) RF: 0 Zyrtec 10 mg Tablet 10 mg PO DAILY RF: 0 hydroxyzine HCl 50 mg tablet 50 mg PO BEDTIME PRN (Reason: sleep) RF: 0 ciprofloxacin HCl 500 mg tablet 500 mg PO BID Qty: 14 RF: 0 Discharge Orders: Discharge Order (Routine); Ordered 09/11/20 Ordered By: Rose Suazo Referrals: Marcus Wills MD [Primary Care Provider] - 1-3 days Discharge Diet: Advance as tolerated Discharge Activity: Resume usual activity Patient Instructions: Chest Pain (ED) Coding Level of Care Code ED Industrial Ecology Technician for Cocog Fwd Exam Comprehensive
[2020-09-11 09:20] VITALS: O2SAT 98
[2020-09-11 09:36] LABS: Basophils % 0.3 %; Eosinophils # 0.2 10^3/uL (0.0-0.8); Eosinophils % 2.8 %; Hematocrit 42.4 % (37.0-47.0); Hemoglobin 13.6 g/dL (11.5-15.3); Lymphocytes % 23.7 %; Mean Corpuscular HGB Conc 32.1 g/dL (30.0-36.0); Mean Corpuscular Hemoglobin 28.7 pg (28.0-34.0); Mean Corpuscular Volume 89.5 fL (81-99); Mean Platelet Volume 9.7 fL (7.4-10.4); Monocytes # 0.4 10^3/uL (0.2-0.9); Monocytes % 4.5 %; Neutrophils # 5.86 10^3/uL (1.8-7.7); Neutrophils % 68.4 %; Nucleated Red Blood Cells % 0 %; Platelet Count 311 10^3/cmm (130-400); Red Blood Count 4.74 10^6/uL (4.1-5.3); Red Cell Distribution Width 13.8 % (12.1-15.1); White Blood Count 8.6 10^3/uL (4.0-10.0)
[2020-09-11] MEDS: nitroglycerin 0.4 mg sublingual Tablet SUBLINGUAL (09:48)
[2020-09-11 09:49] VITALS: BP 162/92; PULSE 91; RESP 15; O2SAT 96
[2020-09-11 09:54] LABS: Alanine Aminotransferase 33 U/L (0-33); Albumin Level 3.9 g/dL (3.5-5.2); Alkaline Phosphatase 90 IU/L (35-105); Anion Gap 13.6 (5-19); Aspartate Amino Transferase 22 U/L (0-32); Blood Urea Nitrogen 10 mg/dL (6-20); Calcium 8.9 mg/dL (8.5-10.5); Carbon Dioxide 25 mmol/L (22-29); Chloride 103 mmol/L (98-107); Globulin 2.6 g/dL (1.3-4.6); Glomerular Filtration Rate 110.2 mL/min (90-130); Glucose 104 mg/dL (65-115); Osmolality Calculated 283 mOsm/kg (285-295); Potassium 4.6 mmol/L (3.5-5.1); Sodium 137 mmol/L (136-145); Total Bilirubin 0.3 mg/dL (0.15-1.2); Total Protein 6.5 g/dL (6.6-8.7); Troponin(5th) Baseline 6 ng/L (0-10)
--- NOTE | 2020-09-11 11:12 | ECG_ITS ---
[facility] Test Date: 2020-09-11 Pat Name: Laial Mcclain Department: Room: Gender: Female Fingernail Former: : 1980 Requested By: Rose Suazo Order Number: [id number] Edu MD: Lucila Keith M.D. Measurements Intervals [place] Rate: 81 P: 45 CO: 137 QRS: 50 QRSD: 88 T: 36 QT: 365 QTc: 426 Interpretive Statements SINUS RHYTHM Compared to ECG 09/11/2020 09:26:07 No significant changes Electronically Signed On 09-11-2020 22:04:28 PIPING ENGINEER by Lucila Keith M.D. [id number]
[2020-09-11] MEDS: ketorolac 30 mg/mL INJ 15 MG IVP (11:33)
[2020-09-11] MEDS: ondansetron 2 mg/ML SDV 2 mL 4 MG IVP (11:34)
[2020-09-11 11:46] VITALS: BP 134/79; PULSE 93; O2SAT 95
[2020-09-11 12:12] LABS: Troponin 5 2HR Delta 0 ABS# (0-10)
[2020-09-11 12:50] VITALS: BP 146/113; RESP 18; O2SAT 97
== END 2020-09-11 12:51 | disposition home or self-care (01) ==
PROVIDERS: Emergency Provider Emergency Medicine; PCP Family Medicine
DX: R07.9 Chest pain, unspecified (principal); F17.210 Nicotine dependence, cigarettes, uncomplicated
CPT/HCPCS: 12345; 71045; 80053; 84484; 85025; 93005; 96374; 96375; 99283; J1885; J2405

== ENCOUNTER → 2020-10-07 09:58 | Outpatient (BNVA) | payer MEDICAID, SELFPAY ==
[2019-12-11 12:15] VITALS: BP 149/98; BMI 57.3
== END ==
PROVIDERS: PCP Family Medicine; Visit Provider Nurse Practitioner
DX: F43.12 Post-traumatic stress disorder, chronic (principal); F60.3 Borderline personality disorder; G47.30 Sleep apnea, unspecified
CPT/HCPCS: 99214

== ENCOUNTER 2020-10-13 10:47 | Outpatient (CLI) | payer MEDICAID, SELFPAY ==
[2019-12-11 12:15] VITALS: BP 149/98; BMI 57.3
[2020-10-13 12:12] VITALS: BMI 59.3
--- NOTE | 2020-10-13 12:18 | ECG_ITS ---
[facility] Test Date: 2020-10-13 Pat Name: Laila Mcclain Department: Room: Gender: Female Basic Sciences Dean: : 1980 Requested By: Marcus Martinez Order Number: [id number] Edu MD: Lucila Keith M.D. Interpretive Statements NAME OF STUDY: TREADMILL STRESS TEST INDICATION: Atypical Chest Pain PROCEDURE: At the baseline, the patient's blood pressure was with a heart rate of. The baseline electrocardiogram showed sinus tachycardia with a low voltage complexes in the precordial leads. No significant ST-T changes. The patient exercised for 1 minute and 41 seconds on a standard Yuniel protocol. Patient attained a maximum heart rate of 160 beats per minute(89% of the maximum predicted heart rate) with a blood pressure at the peak exercise of 233/42 mm Hg. The EKG at the peak exercise was uninterpretable due to heavy artifacts .patient did not have any chest pain or any significant cardiac arrhythmias with the exercise During the recovery phase, there were no new changes. Blood pressure at the end of the recovery phase was 162/72 mm Hg with a heart rate of 106 per minute. CONCLUSION: 1. Possibly normal EKG response to treadmill exercise 2. No exercise-induced chest pain or cardiac arrhythmia 3. Markedly impaired exercise tolerance, attained a maximum of 4.6 METs 4. Hypertensive response to exercise Consider pharmacological stress test, if clinically indicated Electronically Signed On 10-15-2020 20:50:57 VAULT CUSTODIAN by Lucila Keith M.D. [id number]
[2020-10-13 12:39] VITALS: BP 128/66; PULSE 99
== END 2020-10-13 10:48 | disposition home or self-care (01) ==
PROVIDERS: PCP Family Medicine; Visit Provider Family Medicine
DX: R07.89 Other chest pain (principal); I10 Essential (primary) hypertension
CPT/HCPCS: 93017

== ENCOUNTER → 2020-11-03 15:49 | Outpatient (BNVA) | payer MEDICAID, SELFPAY ==
[2019-12-11 12:15] VITALS: BP 149/98; BMI 57.3
== END ==
PROVIDERS: PCP Family Medicine; Visit Provider Obstetrics & Gynecology
DX: R39.81 Functional urinary incontinence (principal); Z98.890 Other specified postprocedural states
CPT/HCPCS: 81000

== ENCOUNTER → 2020-11-12 08:02 | Outpatient (BNVA) | payer MEDICAID, SELFPAY ==
[2019-12-11 12:15] VITALS: BP 149/98; BMI 57.3
== END ==
PROVIDERS: PCP Family Medicine; Visit Provider Nurse Practitioner
DX: F43.12 Post-traumatic stress disorder, chronic (principal); G47.30 Sleep apnea, unspecified; F60.3 Borderline personality disorder
CPT/HCPCS: 99214

== ENCOUNTER 2020-11-23 15:57 | Emergency (ER) | payer MEDICAID, SELFPAY ==
[2019-12-11 12:15] VITALS: BP 149/98; BMI 57.3
[2020-11-23 16:26] VITALS: BP 138/89; PULSE 100; RESP 16; TEMP 36.3; O2SAT 100; BMI 60.2
--- NOTE | 2020-11-23 18:29 | XRR_ITS ---
PROCEDURE INFORMATION: Exam: XR Cervical Spine, 2 or 3 Views Exam date and time: 11/23/2020 6:41 PM Age: 40 years old Clinical indication: Patient HX: Neck pain x 3 days no trauma TECHNIQUE: Imaging protocol: XR of the cervical spine, 2 or 3 views. COMPARISON: No relevant prior studies available. FINDINGS: Bones/joints: Limited alignment assessment of lower cervical spine on the lateral view. Minor midcervical facet arthritis. Maintenance of visualized cervical vertebrae to the level of C6. Soft tissues: Unremarkable. XR/XR cervical spine 3V* [id number] IMPRESSION: Minor facet arthritis mid cervical spine.
[2020-11-23 18:30] VITALS: BP 135/98; PULSE 97; RESP 18; O2SAT 95
[2020-11-23] MEDS: cyclobenzaprine 10 mg Tablet PO (18:35)
[2020-11-23] MEDS: HYDROcodone-acetaminophen 7.5-325 mg Tablet 1 TAB PO (18:35)
--- NOTE | 2020-11-23 18:38 | ED_ITS ---
HPI - Neck Pain/Injury General: Chief Complaint: Neck Pain/Injury Stated Complaint: neck and shoulder pain Time Seen by Provider: 11/23/20 18:21 Source: patient Mode of arrival: ambulatory Limitations: no limitations History of Present Illness: HPI Narrative: 40-year-old female states she is been having neck pain especially on the right side over the last 2 to 3 days. States pain is sharp in nature and much worse when she tries to bend her neck or lift her arm. She states it was after sleeping and believes she may have slept on it wrong. She denies any fever. Denies any vomiting. She states she is use heating and ice pads and does help slightly. complaint: neck pain Associated symptoms: Denies headache(s) or nausea Review of Systems Const: Denies: fever(s), chills, body aches or change in appetite Eyes: Denies: blurry vision or eye discomfort ENMT: Denies: throat pain or dental pain Card: Denies: chest pain Resp: Denies: dyspnea GI: Denies: abdominal pain, nausea, vomiting or diarrhea : Denies: dysuria Musc: Reports: neck pain Skin/Breast: Denies: rash Neuro: Denies: headache(s) Psych: Denies: depression Karan/Lymph: Denies: easy bruising All/Imm: Denies: urticaria PFSH ED PFSH: Medical History Borderline personality disorder Common migraine with intractable migraine Post-traumatic stress disorder, chronic Sleep apnea, unspecified Surgical History History of bladder repair surgery History of endometrial ablation History of hysterectomy History of shoulder surgery History of tubal ligation Family History Brother Diabetes Mother , Acute leukemia at age 42 Cancer Father Cancer Stage IV Kidney Cancer Grandmother Diabetes maternal Grandfather Stroke maternal Social History Smoking and tobacco status: former smoker Quit status (tobacco): has quit using tobacco Year quit tobacco: 10/2020 Alcohol intake: current Alcohol intake frequency: holidays/special occasions only Alcohol type: wine and hard liquor Marital status: Female Reproductive History: Date of last menstrual period: 08/28/18 Para: 3 Spontaneous abortions: No Physical Exam Const: COMMON NORMALS: no acute distress, patient oriented x3 and healthy appearing HENMT: COMMON NORMALS: normocephalic and atraumatic HEAD & SCALP: normocephalic and atraumatic Eye: COMMON NORMALS: Equal, round and reactive pupils present and EOMs intact bilaterally PUPIL: Yes Equal, round and reactive pupils present Neck/C-Spine: COMMON NORMALS: full ROM and supple OTHER: Tender over left and right trapezius pain worse with her raising right arm. Chest: COMMONS NORMALS: normal inspection of the chest and normal palpation of entire chest wall Resp: COMMON NORMALS: normal respiratory effort, No retractions, No use of accessory muscles and clear to auscultation bilaterally AUSCULTATION: clear to auscultation bilaterally Cardio: COMMON NORMALS: regular rate, regular rhythm and No murmurs present (Cardio) RATE: regular rate RHYTHM: regular rhythm GI: COMMON NORMALS: Normal to inspection, nondistended, normoactive bowel sounds present, Soft to palpation, non-tender and no masses PALPATION: Yes Soft to palpation Extremity: COMMON NORMALS: normal to inspection and full ROM Neuro: COMMON NORMALS: patient oriented x3, moves all extremities and no focal motor deficits Psych: COMMON NORMALS: mental status grossly normal, Normal thought process present and cooperative THOUGHT PROCESS: Normal thought process present Skin: COMMON NORMALS: no rashes or lesions noted and no wounds GENERAL SKIN EXAM: no rashes or lesions noted Course Vital Signs: Vital signs: Vital Signs Temperature 97.3 F L 11/23/20 16:26 Pulse Rate 97 11/23/20 18:30 Respiratory Rate 18 11/23/20 18:30 Blood Pressure 135/98 11/23/20 18:30 Pulse Oximetry 95 11/23/20 18:30 MDM - Neck Pain/Injury MDM Narrative: Medical decision making narrative: Patient presents with neck pain that is likely a muscle strain. She is well-appearing here and x-ray shows no acute fracture. Will place her on Naprosyn and Robaxin and she is to ice her neck. Patient is stable for discharge is return if worsening. Imaging Data^: xr c spine: Attestation: I personally reviewed and interpreted this imaging study as follows: My impression: No acute ab malady Discharge Plan Discharge Patient Disposition: Home Clinical Impression: Strain of neck muscle Qualifiers: Encounter type: initial encounter Qualified Code(s): S16.1XXA - Strain of muscle, fascia and tendon at neck level, initial encounter Condition: Stable Prescriptions: New Robaxin-750 750 mg tablet 750 mg PO Q6H Qty: 30 RF: 0 Naprosyn 500 mg tablet 500 mg PO BID PRN (Reason: pain) Qty: 20 RF: 0 No Action (DME) nebulizers Misc See Rx Instructions .ROUTE .MEDSUPPLY Qty: 1 RF: 0 sumatriptan succinate [Imitrex] 100 mg tablet 100 mg PO Q2H PRN (Reason: migraine headache) Qty: 9 RF: 6 lisinopril 10 mg tablet 20 mg PO DAILY RF: 0 (DME) heel lift See Rx Instructions .ROUTE .MEDSUPPLY Qty: 1 RF: 0 aripiprazole [Abilify] 5 mg tablet 5 mg PO DAILY Qty: 30 RF: 2 duloxetine [Cymbalta] 60 mg capsule,delayed release(DR/EC) 60 mg PO DAILY Qty: 30 RF: 1 albuterol sulfate [ProAir HFA] 90 mcg/actuation HFA aerosol inhaler 2 puff INHALATION Q6H PRN (Reason: shortness of breath) RF: 0 lorazepam [Ativan] 1 mg tablet 1 mg PO BID PRN (Reason: anxiety) Qty: 60 RF: 0 pramipexole [Mirapex] 0.125 mg tablet 0.125 mg PO .HS Qty: 30 RF: 1 Aimovig Autoinjector 140 mg/mL auto-injector 140 mg SUBCUT .MONTHLY Qty: 1 RF: 2 ibuprofen 800 mg Tablet 800 mg PO Q8H PRN (Reason: pain) RF: 0 Zyrtec 10 mg Tablet 10 mg PO DAILY RF: 0 hydroxyzine HCl 50 mg tablet 50 mg PO BEDTIME PRN (Reason: sleep) RF: 0 Discharge Orders: Discharge ED (Routine); Ordered 11/23/20 Ordered By: Rose Suazo Referrals: Marcus Wills MD [Primary Care Provider] - 1-3 days Discharge Diet: Advance as tolerated Discharge Activity: Resume usual activity Patient Instructions: Cervical Spine Strain (ED) Coding Level of Care Code ED Rubber Stamp Maker for g Fwd Exam Comprehensive
[2020-11-23 19:24] VITALS: BP 139/94; O2SAT 96
== END 2020-11-23 19:29 | disposition home or self-care (01) ==
PROVIDERS: Emergency Provider Emergency Medicine; PCP Family Medicine
DX: S16.1XXA Strain of muscle, fascia and tendon at neck level, initial encounter (principal); Z87.891 Personal history of nicotine dependence; X50.1XXA Overexertion from prolonged static or awkward postures, initial encounter
CPT/HCPCS: 12345; 72040; 99281; 99283

== ENCOUNTER → 2020-11-24 15:49 | Outpatient (BNVA) | payer MEDICAID, SELFPAY ==
[2019-12-11 12:15] VITALS: BP 149/98; BMI 57.3
== END ==
PROVIDERS: PCP Family Medicine; Visit Provider Family Medicine
DX: Z01.812 Encounter for preprocedural laboratory examination (principal); Z20.828 Contact with and (suspected) exposure to other viral communicable diseases
CPT/HCPCS: 87635

== ENCOUNTER 2020-11-27 07:43 | Outpatient (CLI) | payer MEDICAID, SELFPAY ==
[2019-12-11 12:15] VITALS: BP 149/98; BMI 57.3
--- NOTE | 2020-11-27 08:33 | USCV_ITS ---
Laila Mcclain Age: 40 Gender: F : 1980 Exam Date: 11/27/2020 08:47 Ordering Phys: Marcus Wills MD Technologist: Jennie Rojas [place] [facility] [place]: EXERTIONAL SHORTNESS OF BREATH BP: 117 / 68 HR: 80 Rhythm: Sinus Technical Quality: Adequate MEASUREMENTS (Male / Female) Normal Values 2D ECHO LV Diastolic Diameter PLAX 4.2 cm 4.2 - 5.9 / 3.9 - 5.3 cm LV Systolic Diameter PLAX 3.1 cm LV Chamber Size 3.2 cm IVS Diastolic Thickness 1.2 cm 0.6 - 1.0 / 0.6 - 0.9 cm IVS Systolic Thickness 1.8 cm LVPW Diastolic Thickness 1.3 cm 0.6 - 1.0 / 0.6 - 0.9 cm LVPW Systolic Thickness 1.7 cm RV Chamber Size 3.5 cm LVOT Diameter 2.0 cm LV Ejection Fraction 2D Teich 48.4 % LV Ejection Fraction MOD 2C 65.2 % LV Ejection Fraction 2C AL 66.0 % LA Diameter 3.3 cm LA Width 3.1 cm LA Height 4.8 cm RA Width 2.9 cm RA Height 4.3 cm Aorta at Sinotubular Diameter 2.8 cm M-MODE LV Diastolic Diameter MM 4.6 cm 4.2 - 5.9 / 3.9 - 5.3 cm LV Systolic Diameter MM 3.1 cm LV Ejection Fraction MM Teich 59.9 % IVS Diastolic Thickness MM 1.1 cm 0.6 - 1.0 / 0.6 - 0.9 cm IVS Systolic Thickness MM 1.6 cm LVPW Diastolic Thickness MM 1.0 cm 0.6 - 1.0 / 0.6 - 0.9 cm LVPW Systolic Thickness MM 1.3 cm Aortic Annulus Diameter 3.7 cm LA Ao Ratio MM 1.2 MV E Point Septal Separation 0.6 cm DOPPLER AV Peak Velocity 119.0 cm/s LVOT Peak Velocity 101.0 cm/s AV Area Cont Eq vti 2.7 cm squared AV Area Cont Eq pk 2.7 cm squared MV Area PHT 4.9 cm squared Mitral E to A Ratio 1.8 MV E' Velocity 58.5 cm/s Mitral E to MV E' Ratio 6.3 Mitral E to LV E' Lateral Ratio 6.9 Mitral E to LV E' Septal Ratio 5.8 TR Peak Velocity 150.3 cm/s TR Peak Gradient 9.0 mmHg TV Peak E Velocity 40.0 cm/s Right Atrial Pressure 3.0 mmHg Pulmonary Artery Systolic Pressu 12.0 mmHg PV Peak Velocity 78.0 cm/s RV Acceleration Time 0.2 s RV Ejection Time 0.4 s RV AcT/ET 0.4 FINDINGS Left Ventricle Normal left ventricular size and systolic function with no diagnostic regional wall motion abnormalities. Left ventricular ejection fraction is estimated at 65 %. Normal diastolic function. Right Ventricle Normal right ventricular size and systolic function. Right ventricular systolic pressure 12 mmHg. Right Atrium Normal right atrial size. Left Atrium Left atrium not well visualized. Mitral Valve Mildly thickened mitral valve. Aortic Valve Aortic valve not well visualized. No aortic valve stenosis. No aortic valve regurgitation. Tricuspid Valve Tricuspid valve not well visualized. Pulmonic Valve Pulmonic valve not well visualized. Pericardium No pericardial effusion. Aorta Normal size aortic root and proximal ascending aorta. CONCLUSIONS 1. This is a technically difficult study. 2. Normal left ventricular size and systolic function with no diagnostic regional wall motion abnormalities. Left ventricular ejection fraction is estimated at 65 %. Normal diastolic function. 3. Normal right ventricular size and systolic function. 4. No significant valvular abnormality based on the study. 5. When compared to study dated 01/24/2019, there may not have been any significant change. Samara Hopson MD (Electronically Signed) Final Date: 02 December 2020 12:45 S
--- NOTE | 2020-11-27 09:33 | PFTS_ITS ---
Date of Study:11/27/20 Date of Dictation: 12/01/2020 MECHANICS: Forced vital capacity (FVC) is normal. Forced expiratory volume in one second (FEV1) is normal. FEV1/FVC is normal. FLOW VOLUME LOOP: Normal . LUNG VOLUMES: Total lung capacity (TLC) is increased. Residual volume (RV) is significantly increased suggestive of severe air trapping. DIFFUSING CAPACITY FOR CARBON MONOXIDE: Normal . INTERPRETATION: The spirometry is normal. Lung volumes reveal severe air trapping indirectly suggestive of obstructive ventilatory defect. Normal gas transfer. Please correlate clinically. MTDD
== END 2020-11-27 07:44 | disposition home or self-care (01) ==
LOC: US 07:45
PROVIDERS: PCP Family Medicine; Visit Provider Family Medicine
DX: R06.02 Shortness of breath (principal)
CPT/HCPCS: 93306; 94010; 94726; 94729

== ENCOUNTER 2020-12-03 18:01 | Emergency (ER) | payer MEDICAID, SELFPAY ==
[2019-12-11 12:15] VITALS: BP 149/98; BMI 57.3
[2020-12-03] VITALS (9 sets, daily range): BP systolic 136–172; BP diastolic 79–105; PULSE 89–113; RESP 14–22; TEMP 37.1; O2SAT 92–94; BMI 60.2
--- NOTE | 2020-12-03 18:13 | XR_ITS ---
WS: [id number] Portable AP upright chest, 12/03/2020 Clinical Data: cp Comparison: PA and lateral chest, 11/04/2020. Findings: No nodules, masses or effusions are seen. The heart is normal. The pulmonary vascularity is not increased. No pneumonia or pneumothorax is seen. XR/XR chest 1V portable [id number] Impression: Negative chest.
--- NOTE | 2020-12-03 18:13 | ECG_ITS ---
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 Measurements Intervals [place] Rate: 115 P: 35 MD: 140 QRS: 53 QRSD: 88 T: 39 QT: 306 QTc: 424 Interpretive Statements SINUS TACHYCARDIA LOW QRS VOLTAGE IN PRECORDIAL LEADS [QRS DEFLECTION < 1.0 mV IN CHEST LEADS] Compared to ECG 09/11/2020 12:15:53 Low QRS voltage now present Sinus rhythm no longer present Electronically Signed On 12-04-2020 7:26:55 SUPERINTENDENT CEMETERY by Samara Hopson M.D. [id number]
[2020-12-03] MEDS: sodium chloride 0.9% 1,000 ML 999 ML IV (18:35)
[2020-12-03] MEDS: aspirin 81 mg Chew Tablet 324 MG PO (18:35)
[2020-12-03 18:48] LABS: Basophils % 0.4 %; Eosinophils # 0.4 10^3/uL (0.0-0.8); Eosinophils % 4.4 %; Hematocrit 42.3 % (37.0-47.0); Hemoglobin 13.5 g/dL (11.5-15.3); Lymphocytes # 1.5 10^3/uL (0.8-4.8); Lymphocytes % 18.8 %; Mean Corpuscular HGB Conc 31.9 g/dL (30.0-36.0); Mean Corpuscular Hemoglobin 28.6 pg (28.0-34.0); Mean Corpuscular Volume 89.6 fL (81-99); Monocytes # 0.5 10^3/uL (0.2-0.9); Monocytes % 6.7 %; Neutrophils # 5.57 10^3/uL (1.8-7.7); Neutrophils % 69.3 %; Nucleated Red Blood Cells % 0 %; Platelet Count 248 10^3/cmm (130-400); Red Blood Count 4.72 10^6/uL (4.1-5.3); Red Cell Distribution Width 13.9 % (12.1-15.1)
[2020-12-03 18:50] LABS: Add Urine Microscopic? NO
[2020-12-03 18:58] LABS: HCG Qualitative Urine. Negative (Negative)
[2020-12-03 18:59] LABS: D Dimer 0.36 ug/mIFEU (0-0.59)
[2020-12-03 19:00] LABS: Bilirubin Urine Neg (Negative); Blood Urine Neg (Negative); Glucose Urine UA Norm (Normal); Ketones Urine Negative (Negative); Leukocyte Esterase Urine Negative (Negative); Nitrate Urine Negative (Negative); Protein Urine Neg (Negative); Urine Appearance Clear (CLEAR); Urine Color Yellow (Yellow); Urobilinogen Urine 4 mg/dL (Negative); pH Urine 7 (5-7)
[2020-12-03 19:02] LABS: Alanine Aminotransferase 39 U/L (0-33); Albumin Level 3.9 g/dL (3.5-5.2); Alkaline Phosphatase 92 IU/L (35-105); Anion Gap 12.2 (5-19); Aspartate Amino Transferase 28 U/L (0-32); Blood Urea Nitrogen 10 mg/dL (6-20); Carbon Dioxide 30 mmol/L (22-29); Chloride 101 mmol/L (98-107); Globulin 2.7 g/dL (1.3-4.6); Glomerular Filtration Rate 109.6 mL/min (90-130); Glucose 109 mg/dL (65-115); Osmolality Calculated 288 mOsm/kg (285-295); Potassium 4.2 mmol/L (3.5-5.1); Sodium 139 mmol/L (136-145); Total Bilirubin 0.2 mg/dL (0.15-1.2); Total Protein 6.6 g/dL (6.6-8.7)
[2020-12-03 19:04] LABS: Troponin(5th) Baseline 6 ng/L (0-10)
[2020-12-03] MEDS: ondansetron 2 mg/ML SDV 2 mL 4 MG IVP (19:15)
--- NOTE | 2020-12-03 20:03 | PC.NURSE ---
EKG done at 1999 and shown to ER doctor
[2020-12-03] MEDS: acetaminophen 325 mg Tablet 650 MG PO (20:08)
--- NOTE | 2020-12-03 20:09 | W.ED.CHESTPA ---
HPI - Chest Pain General: Chief Complaint: Chest Pain Stated Complaint: Chest pain, numbness/pain in left arm, bp 152/100 Time Seen by Provider: 12/03/20 18:13 History of Present Illness: HPI narrative: The patient is a 40-year-old female who is morbidly obese comes to the ER complaining of left-sided chest pain radiating to her shoulder and giving her a tingling sensation to her arm. She says it does hurt when she moves and it is severely tender to palpation. She just saw Dr. Hopson on November 25 and had a negative stress test at that time. She has had a negative D-dimer in the past Associated symptoms: Reports no associated symptoms; Deny abdominal pain, dyspnea or palpitations Review of Systems General: Reports: 10 or more systems reviewed and unremarkable except in HPI and below Const: Denies: fatigue Eyes: Denies: change in vision, blurry vision or eye redness ENMT: Denies: throat pain, swelling of lips/tongue, ear or mastoid pain or nasal congestion Card: Reports: chest pain; Denies: palpitations, irregular heart rhythm, edema, dyspnea on exertion or orthopnea Resp: Denies: dyspnea, productive cough or non-productive cough GI: Denies: abdominal pain, diarrhea or GI cramping : Denies: flank pain, difficulty voiding, urinary frequency or urinary urgency Musc: Denies: neck pain, back pain, extremity pain, joint pain, joint redness, limited range of motion or muscle weakness Skin/Breast: Denies: rash, pruritus, erythema, skin pain or skin tenderness Neuro: Denies: headache(s), numbness in extremities, weakness in extremities, sensory changes, difficulty walking, dizziness, confusion or Slurred speech present Psych: Denies: anxiety or depression Endo: Denies: polyuria All/Imm: Denies: urticaria, throat swelling or tongue swelling PFSH ED PFSH: Medical History (Updated 12/03/20 @ 21:10 by Kendrick Kramer MD) Borderline personality disorder Common migraine with intractable migraine Morbid obesity Post-traumatic stress disorder, chronic Sleep apnea, unspecified Surgical History History of bladder repair surgery History of endometrial ablation History of hysterectomy History of shoulder surgery History of tubal ligation Family History Brother Diabetes Mother , Acute leukemia at age 42 Cancer Father Cancer Stage IV Kidney Cancer Grandmother Diabetes maternal Grandfather Stroke maternal Social History (Updated 11/25/20 @ 11:03 by Samara Hopson MD) Smoking and tobacco status: current every day smoker Quit status (tobacco): has tried quititng Smoking risk assessment/counseling performed?: Yes Alcohol intake: current Alcohol intake frequency: holidays/special occasions only Alcohol type: wine and hard liquor Marital status: Female Reproductive History: Date of last menstrual period: 08/28/18 Para: 3 Spontaneous abortions: No Physical Exam Const: COMMON NORMALS: no acute distress, average body habitus, patient oriented x3, no limitations, healthy appearing, alert and well nourished GENERAL APPEARANCE: cooperative, comfortable, well kempt and well developed ORIENTATION/CONSCIOUSNESS: Yes awake, Yes oriented to person, Yes oriented to place and Yes oriented to time HENMT: COMMON NORMALS: normocephalic, external ears normal and Normal external nose present HEAD & SCALP: normal to inspection and normocephalic NOSE: Normal external nose present EXTERNAL EAR: Yes external ears normal MOUTH: Normal oral and palatal mucosa present THROAT: posterior oropharynx normal Eye: COMMON NORMALS: Equal, round and reactive pupils present and EOMs intact bilaterally GENERAL EYE: appearance normal, both eyes and all related structures PUPIL: Yes Equal, round and reactive pupils present Neck/C-Spine: COMMON NORMALS: full ROM, no lymphadenopathy, no meningeal signs and no JVD GENERAL: Yes normal visual inspection Lymph: LYMPHATIC: no lymphadenopathy noted Chest: COMMONS NORMALS: normal inspection of the chest and normal palpation of entire chest wall Resp: COMMON NORMALS: normal respiratory effort, No retractions, No use of accessory muscles, clear to auscultation bilaterally and percussion normal EFFORT & INSPECTION: Yes able to speak in complete sentences AUSCULTATION: clear to auscultation bilaterally PERCUSSION: percussion normal Cardio: COMMON NORMALS: no JVD, regular rate, regular rhythm, S1 normal heart sound present, S2 normal heart sound present and Peripheral pulses 2+ throughout RATE: regular rate RHYTHM: regular rhythm HEART SOUNDS: S1 normal heart sound present and S2 normal heart sound present PERIPHERAL PULSES: Peripheral pulses 2+ throughout OTHER: Significant anterior chest wall tenderness and left shoulder tenderness reproducing her chief complaint. GI: COMMON NORMALS: Normal to inspection, nondistended, normoactive bowel sounds present, Soft to palpation, non-tender and no masses INSPECTION: Yes normal to inspection PALPATION: Yes Soft to palpation : COMMON NORMALS: Yes no CVA tenderness BLADDER/KIDNEY EXAM: Yes no CVA tenderness Back/Pelvis: COMMON NORMALS: no CVA tenderness, thoracic and lumbar spine normal to inspection, no thoracic nor lumbar tenderness and thoraco-lumbar ROM normal Extremity: COMMON NORMALS: normal to inspection, full ROM, capillary refill normal, no joint enlargement and no pedal edema GENERAL: Yes normal exam except as noted Neuro: COMMON NORMALS: patient oriented x3, CN's II-XII intact bilaterally, moves all extremities, no focal motor deficits, no sensory deficits noted and gait normal SENSORIUM/ORIENTATION: Yes alert, Yes oriented to person, Yes oriented to place and Yes oriented to time MENINGEAL SIGNS: Yes no meningeal signs Psych: COMMON NORMALS: mental status grossly normal, Normal thought process present, cooperative, normal affect and speech normal APPEARANCE: Yes well kempt ATTITUDE: Yes calm SPEECH: Yes normal speech MOOD & AFFECT: Yes anxious THOUGHT PROCESS: Normal thought process present Skin: COMMON NORMALS: no rashes or lesions noted GENERAL SKIN EXAM: no rashes or lesions noted Course Vital Signs: Vital signs: Vital Signs Temperature 98.7 F 12/03/20 18:05 Pulse Rate 93 12/03/20 21:06 Respiratory Rate 14 12/03/20 21:06 Blood Pressure 159/88 12/03/20 21:06 Pulse Oximetry 94 12/03/20 21:06 MDM - Chest Pain MDM Narrative: Medical decision making narrative: The patient came in complaining of atypical chest pain. She is moderately tender in her left chest wall and that reproduces her chest pain she is feeling. It is also reassuring that she has had a negative stress test in the past month with Dr. Hopson. 2 - EKGs and troponins. Stable for outpatient follow-up. Lab Data: Labs: Lab Results 12/03/20 12/03/20 12/03/20 Range/Units 18:30 18:30 18:30 WBC 8.0 (4.0-10.0) 10^3/ uL RBC 4.72 (4.1-5.3) 10^6/u L Hgb 13.5 (11.5-15.3) g/dL Hct 42.3 (37.0-47.0) % MCV 89.6 (81-99) fL MCH 28.6 (28.0-34.0) pg MCHC 31.9 (30.0-36.0) g/dL RDW 13.9 (12.1-15.1) % Plt Count 248 (130-400) 10^3/c mm MPV 10.0 (7.4-10.4) fL Neut % (Auto) 69.3 % Lymph % (Auto) 18.8 % Whitman % (Auto) 6.7 % Eos % (Auto) 4.4 % Baso % (Auto) 0.4 % Neut # (Auto) 5.57 (1.8-7.7) 10^3/u L Lymph # (Auto) 1.5 (0.8-4.8) 10^3/u L Whitman # (Auto) 0.5 (0.2-0.9) 10^3/u L Eos # (Auto) 0.4 (0.0-0.8) 10^3/u L Baso # (Auto) 0.0 (0.0-0.1) 10^3/u L Nucleated RBC % (a uto) 0 % Nucleated RBCs # 0.0 /100WBC D-Dimer 0.36 (0-0.59) ug/mIFE U Sodium 139 (136-145) mmol/L Potassium 4.2 (3.5-5.1) mmol/L Chloride 101 (98-107) mmol/L Carbon Dioxide 30 H (22-29) mmol/L Anion Gap 12.2 (5-19) BUN 10 (6-20) mg/dL Creatinine 0.6 (0.5-0.9) mg/dL GFR Calculation 109.6 (90-130) mL/min Glucose 109 (65-115) mg/dL Calculated Osmolal ity 288 (285-295) mOsm/k g Calcium 9.0 (8.5-10.5) mg/dL Total Bilirubin 0.2 (0.15-1.2) mg/dL AST 28 (0-32) U/L ALT 39 H (0-33) U/L Alkaline Phosphata se 92 (35-105) IU/L Troponin T Baselin e (0-10) ng/L Troponin T 120 Min [place] (0-10) ng/L Delta Troponin T (0-10) ABS# Total Protein 6.6 (6.6-8.7) g/dL Albumin 3.9 (3.5-5.2) g/dL Globulin 2.7 (1.3-4.6) g/dL HCG, Qual (Negative) Urine Color (Yellow) Urine Appearance (CLEAR) Urine pH (5-7) Ur Specific Gravit y (1.005-1.030) Urine Protein (Negative) Urine Glucose (UA) (Normal) Urine Ketones (Negative) Urine Blood (Negative) Urine Nitrate (Negative) Urine Bilirubin (Negative) Urine Urobilinogen (Negative) mg/dL Ur Leukocyte Belia ase (Negative) 12/03/20 12/03/20 12/03/20 Range/Units 18:30 18:40 18:40 WBC (4.0-10.0) 10^3/ uL RBC (4.1-5.3) 10^6/u L Hgb (11.5-15.3) g/dL Hct (37.0-47.0) % MCV (81-99) fL MCH (28.0-34.0) pg MCHC (30.0-36.0) g/dL RDW (12.1-15.1) % Plt Count (130-400) 10^3/c mm MPV (7.4-10.4) fL Neut % (Auto) % Lymph % (Auto) % Whitman % (Auto) % Eos % (Auto) % Baso % (Auto) % Neut # (Auto) (1.8-7.7) 10^3/u L Lymph # (Auto) (0.8-4.8) 10^3/u L Whitman # (Auto) (0.2-0.9) 10^3/u L Eos # (Auto) (0.0-0.8) 10^3/u L Baso # (Auto) (0.0-0.1) 10^3/u L Nucleated RBC % (a uto) % Nucleated RBCs # /100WBC D-Dimer (0-0.59) ug/mIFE U Sodium (136-145) mmol/L Potassium (3.5-5.1) mmol/L Chloride (98-107) mmol/L Carbon Dioxide (22-29) mmol/L Anion Gap (5-19) BUN (6-20) mg/dL Creatinine (0.5-0.9) mg/dL GFR Calculation (90-130) mL/min Glucose (65-115) mg/dL Calculated Osmolal ity (285-295) mOsm/k g Calcium (8.5-10.5) mg/dL Total Bilirubin (0.15-1.2) mg/dL AST (0-32) U/L ALT (0-33) U/L Alkaline Phosphata se (35-105) IU/L Troponin T Baselin e 6 (0-10) ng/L Troponin T 120 Min [place] (0-10) ng/L Delta Troponin T (0-10) ABS# Total Protein (6.6-8.7) g/dL Albumin (3.5-5.2) g/dL Globulin (1.3-4.6) g/dL HCG, Qual Negative (Negative) Urine Color Yellow (Yellow) Urine Appearance Clear (CLEAR) Urine pH 7 (5-7) Ur Specific Gravit y 1.010 (1.005-1.030) Urine Protein Neg (Negative) Urine Glucose (UA) Norm (Normal) Urine Ketones Negative (Negative) Urine Blood Neg (Negative) Urine Nitrate Negative (Negative) Urine Bilirubin Neg (Negative) Urine Urobilinogen 4 H (Negative) mg/dL Ur Leukocyte Belia ase Negative (Negative) 12/03/20 Range/Units 20:35 WBC (4.0-10.0) 10^3/ uL RBC (4.1-5.3) 10^6/u L Hgb (11.5-15.3) g/dL Hct (37.0-47.0) % MCV (81-99) fL MCH (28.0-34.0) pg MCHC (30.0-36.0) g/dL RDW (12.1-15.1) % Plt Count (130-400) 10^3/c mm MPV (7.4-10.4) fL Neut % (Auto) % Lymph % (Auto) % Whitman % (Auto) % Eos % (Auto) % Baso % (Auto) % Neut # (Auto) (1.8-7.7) 10^3/u L Lymph # (Auto) (0.8-4.8) 10^3/u L Whitman # (Auto) (0.2-0.9) 10^3/u L Eos # (Auto) (0.0-0.8) 10^3/u L Baso # (Auto) (0.0-0.1) 10^3/u L Nucleated RBC % (a uto) % Nucleated RBCs # /100WBC D-Dimer (0-0.59) ug/mIFE U Sodium (136-145) mmol/L Potassium (3.5-5.1) mmol/L Chloride (98-107) mmol/L Carbon Dioxide (22-29) mmol/L Anion Gap (5-19) BUN (6-20) mg/dL Creatinine (0.5-0.9) mg/dL GFR Calculation (90-130) mL/min Glucose (65-115) mg/dL Calculated Osmolal ity (285-295) mOsm/k g Calcium (8.5-10.5) mg/dL Total Bilirubin (0.15-1.2) mg/dL AST (0-32) U/L ALT (0-33) U/L Alkaline Phosphata se (35-105) IU/L Troponin T Baselin e (0-10) ng/L Troponin T 120 Min [place] 6.00 (0-10) ng/L Delta Troponin T 0 (0-10) ABS# Total Protein (6.6-8.7) g/dL Albumin (3.5-5.2) g/dL Globulin (1.3-4.6) g/dL HCG, Qual (Negative) Urine Color (Yellow) Urine Appearance (CLEAR) Urine pH (5-7) Ur Specific Gravit y (1.005-1.030) Urine Protein (Negative) Urine Glucose (UA) (Normal) Urine Ketones (Negative) Urine Blood (Negative) Urine Nitrate (Negative) Urine Bilirubin (Negative) Urine Urobilinogen (Negative) mg/dL Ur Leukocyte Belia ase (Negative) Discharge Plan Discharge Patient Disposition: Home Clinical Impression: Atypical chest pain Condition: Stable Prescriptions: New amlodipine 5 mg tablet 5 mg PO DAILY Qty: 30 RF: 0 No Action (DME) nebulizers Misc See Rx Instructions .ROUTE .MEDSUPPLY Qty: 1 RF: 0 sumatriptan succinate [Imitrex] 100 mg tablet 100 mg PO Q2H PRN (Reason: migraine headache) Qty: 9 RF: 6 (DME) heel lift See Rx Instructions .ROUTE .MEDSUPPLY Qty: 1 RF: 0 aripiprazole [Abilify] 5 mg tablet 5 mg PO DAILY Qty: 30 RF: 2 duloxetine [Cymbalta] 60 mg capsule,delayed release(DR/EC) 60 mg PO DAILY Qty: 30 RF: 1 losartan-hydrochlorothiazide 50-12.5 mg tablet 1 tab PO DAILY Qty: 30 RF: 1 albuterol sulfate [ProAir HFA] 90 mcg/actuation HFA aerosol inhaler 2 puff INHALATION Q6H PRN (Reason: shortness of breath) RF: 0 lorazepam [Ativan] 1 mg tablet 1 mg PO BID PRN (Reason: anxiety) Qty: 60 RF: 0 pramipexole [Mirapex] 0.125 mg tablet 0.125 mg PO .HS Qty: 30 RF: 1 Aimovig Autoinjector 140 mg/mL auto-injector 140 mg SUBCUT .MONTHLY Qty: 1 RF: 2 ibuprofen 800 mg Tablet 800 mg PO Q8H PRN (Reason: pain) RF: 0 Zyrtec 10 mg Tablet 10 mg PO DAILY RF: 0 hydroxyzine HCl 50 mg tablet 50 mg PO BEDTIME PRN (Reason: sleep) RF: 0 Robaxin-750 750 mg tablet 750 mg PO Q6H Qty: 30 RF: 0 Naprosyn 500 mg tablet 500 mg PO BID PRN (Reason: pain) Qty: 20 RF: 0 Discharge Orders: Discharge ED (Routine); Ordered 12/03/20 Ordered By: Kendrick Kramer Referrals: Marcus Wills MD [Primary Care Provider] - Discharge Diet: Advance as tolerated Patient Instructions: Chest Pain - Chest Wall, Opioid Safety Activity Restrictions/Additional Instructions: You have chest pain most likely caused by the bones and muscles in your chest wall. Please continue to follow-up with your primary care physician and Dr. Hopson in a week or 2. It is encouraging that you have had a negative stress test in the past month and reassuring that you are not having a heart attack. Please return to the ER with worsening symptoms. Coding Level of Care Code ED Local Area [employer] Systems Adminstrator for Sheila Fwd Exam Comprehensive
--- NOTE | 2020-12-03 20:13 | ECG_ITS ---
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 Measurements Intervals [place] Rate: 87 P: 39 ID: [id number] QRS: 54 QRSD: 81 T: 38 QT: 354 QTc: 428 Interpretive Statements SINUS RHYTHM LOW QRS VOLTAGE IN PRECORDIAL LEADS [QRS DEFLECTION < 1.0 mV IN CHEST LEADS] Compared to ECG 09/11/2020 12:15:53 Low QRS voltage now present Electronically Signed On 12-04-2020 7:33:58 INTERIOR DESIGN PRINCIPAL by Samara Hopson M.D. [id number]
[2020-12-03 20:58] LABS: Troponin 5 2HR Delta 0 ABS# (0-10)
[2020-12-03] MEDS: amlodipine 5 mg Tablet PO (21:14)
== END 2020-12-03 21:30 | disposition home or self-care (01) ==
PROVIDERS: Emergency Provider Family Medicine; PCP Family Medicine
DX: R07.9 Chest pain, unspecified (principal); Z79.1 Long term (current) use of non-steroidal anti-inflammatories (NSAID); F17.200 Nicotine dependence, unspecified, uncomplicated
CPT/HCPCS: 12345; 36415; 71045; 80053; 81003; 81025; 84484; 85025; 85378; 93005; 96361; 96374; 99283; 99284; J2405; J7030

== ENCOUNTER → 2020-12-17 07:32 | Outpatient (BNVA) | payer MEDICAID, SELFPAY ==
[2019-12-11 12:15] VITALS: BP 149/98; BMI 57.3
== END ==
PROVIDERS: PCP Family Medicine; Visit Provider Nurse Practitioner
DX: F43.12 Post-traumatic stress disorder, chronic (principal); F60.3 Borderline personality disorder; G47.30 Sleep apnea, unspecified
CPT/HCPCS: 99214

== ENCOUNTER → 2020-12-23 14:36 | Outpatient (BNVA) | payer OTHER, SELFPAY ==
[2019-12-11 12:15] VITALS: BP 149/98; BMI 57.3
== END ==
PROVIDERS: PCP Family Medicine; Visit Provider Nurse Practitioner
DX: F60.3 Borderline personality disorder (principal); Z79.899 Other long term (current) drug therapy
CPT/HCPCS: 80061; 83036

== ENCOUNTER → 2020-12-24 08:57 | Outpatient (BNVA) | payer MEDICARE, MEDICAID, SELFPAY ==
[2019-12-11 12:15] VITALS: BP 149/98; BMI 57.3
== END ==
PROVIDERS: PCP Family Medicine; Visit Provider Specialist
DX: G43.019 Migraine without aura, intractable, without status migrainosus (principal); G62.9 Polyneuropathy, unspecified; F17.210 Nicotine dependence, cigarettes, uncomplicated
CPT/HCPCS: 96372; 99214; J1885

== ENCOUNTER 2021-01-26 07:36 | Outpatient (CLI) | payer MEDICARE, MEDICAID, SELFPAY ==
[2019-12-11 12:15] VITALS: BP 149/98; BMI 57.3
[2020-12-24 09:14] VITALS: BP 138/92; BMI 60.3
--- NOTE | 2021-01-26 07:42 | MM_ITS ---
WS: [id number] SCREENING DIGITAL MAMMOGRAM WITH CAD HISTORY: SCREENING COMPARISON: 10/19/2019 Bilateral CC and MLO views submitted. Computer aided detection analyzed. Breast composition: There are scattered areas of fibroglandular density. No suspicious masses, microc alcifications or architectural distortion. Stable nodules in the superior LEFT breast. MM/[place] [id number] IMPRESSION: BI-RADS: 2-Benign FOLLOW UP: 1 Year Follow-up
== END 2021-01-26 07:37 | disposition home or self-care (01) ==
LOC: RADSHAW 07:37
PROVIDERS: PCP Family Medicine; Visit Provider Family Medicine
DX: Z12.31 Encounter for screening mammogram for malignant neoplasm of breast (principal)
CPT/HCPCS: 77067

== ENCOUNTER 2021-02-10 20:00 | Outpatient (CLI) | payer MEDICARE, MEDICAID, SELFPAY ==
[2020-12-24 09:14] VITALS: BP 138/92; BMI 60.3
== END 2021-02-10 20:01 | disposition home or self-care (01) ==
LOC: SLEEP 02-11 09:20
PROVIDERS: PCP Family Medicine; Visit Provider Internal Medicine Critical Care Medicine
DX: G47.30 Sleep apnea, unspecified (principal)
CPT/HCPCS: 95811

== ENCOUNTER → 2021-02-11 08:13 | Outpatient (BNVA) | payer MEDICARE, MEDICAID, SELFPAY ==
[2020-12-24 09:14] VITALS: BP 138/92; BMI 60.3
== END ==
PROVIDERS: PCP Family Medicine; Visit Provider Nurse Practitioner
DX: F43.12 Post-traumatic stress disorder, chronic (principal); F60.3 Borderline personality disorder; G47.30 Sleep apnea, unspecified
CPT/HCPCS: 99214

== ENCOUNTER 2021-02-19 16:22 | Emergency (ER) | payer MEDICARE, MEDICAID, SELFPAY ==
[2020-12-24 09:14] VITALS: BP 138/92; BMI 60.3
[2021-02-19 16:46] VITALS: BP 160/101; PULSE 98; RESP 18; TEMP 37.1; O2SAT 95; BMI 60.6
--- NOTE | 2021-02-19 17:30 | XRR_ITS ---
PROCEDURE INFORMATION: Exam: XR Right Knee Exam date and time: 02/19/2021 5:51 PM Age: 40 years old Clinical indication: Injury or trauma; Fall; Blunt trauma; Knee; Right; Additional info: RT knee weakness and pain TECHNIQUE: Imaging protocol: XR Right knee. Views: 3 views. Total images: 3 COMPARISON: No relevant prior studies available. FINDINGS: Bones/joints: No visible acute osseous abnormality, fracture, subluxation, or dislocation. No radiographically visible joint effusion. Soft tissues: Soft tissues without evidence of edema, swelling, contusion, emphysema, or radiopaque foreign body. XR/XR knee RT 3V* [id number] IMPRESSION: Nonacute.
[2021-02-19] MEDS: HYDROcodone-acetaminophen 5-325 mg Tablet 1 TAB PO (17:39)
--- NOTE | 2021-02-19 17:55 | W.ED.FALL ---
HPI - Fall General: Chief Complaint: Fall Stated Complaint: PAIN IN R. KNEE/FALL Time Seen by Provider: 02/19/21 17:19 Source: patient Mode of arrival: ambulatory Limitations: no limitations History of Present Illness: HPI Narrative: 40 yr old female presents to the ED with rt knee weakness - reports near fall due to rt knee giving out - states has MRI rt knee scheduled 02/24/2021 for previous rt knee pain and weakness. complaint: fall Fall witnessed: no Place fall occurred: home Loss of consciousness: None Prolonged down time: no Location of injury - extremities: Right: knee Severity: moderate Associated symptoms-after fall: Reports no associated symptoms; Denies abdominal pain, chest pain, headache(s) or neck pain Review of Systems General: Reports: 10 or more systems reviewed and unremarkable except in HPI and below Const: Denies: fever(s), chills or diaphoresis Eyes: Denies: blurry vision or eye redness ENMT: Denies: throat pain, dental pain or disequilibrium Card: Denies: chest pain, palpitations or irregular heart rhythm Resp: Denies: dyspnea, productive cough, non-productive cough or wheezing GI: Denies: abdominal pain, nausea or vomiting : Denies: difficulty voiding or dysuria Musc: Reports: joint pain and joint swelling; Denies: neck pain or back pain Skin/Breast: Denies: rash or pruritus Neuro: Denies: headache(s), weakness in extremities or behavioral changes Karan/Lymph: Denies: easy bruising PFSH ED PFSH: Medical History Borderline personality disorder Common migraine with intractable migraine Morbid obesity Post-traumatic stress disorder, chronic Sleep apnea, unspecified Surgical History History of bladder repair surgery History of endometrial ablation History of hysterectomy History of shoulder surgery History of tubal ligation Family History Brother Diabetes Mother , Acute leukemia at age 42 Cancer Father Cancer Stage IV Kidney Cancer Grandmother Diabetes maternal Grandfather Stroke maternal Social History Smoking and tobacco status: current every day smoker cigarettes Packs smoked per day: 0.5 Years cigarettes smoked: 26 and e-cigarettes E-Cigarette Details: vaporizer device and with nicotine E-cig/vape details: 5% Nicotine - 2020 - Hx of 0.5 PPD x 26 Years Quit status (tobacco): has tried quititng Number of times tried to quit tobacco: 6 Second hand smoke exposure: Yes Smoking risk assessment/counseling performed?: Yes Alcohol intake: current Alcohol intake frequency: holidays/special occasions only Alcohol type: wine and hard liquor Counseling given: No Counseling given: No Adopted: No Caregiver/support person: No Lives independently: Yes Household members: children Housing: Manufactured/Mobile home Marital status: Number of children: 3 Number of grandchildren: 0 Highest education level completed: Associate Degree: Occupational, Technical, Vocational Program 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, 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: No Current occupational status: disabled Current occupational exposures/hazards: No Pets and animals: Yes Pets & animals: cat(s) and dog(s) History of recent travel: No ([facility] Leisure activites: art, games and reading Sexually active: Yes Current gender identity: Female Carolee/Muslim: Wicca Special carolee needs: No Agree to transfusion: Yes Financial difficulty paying for basics: Somewhat Hard Female Reproductive History: Date of last menstrual period: 08/28/18 Para: 3 Spontaneous abortions: No Physical Exam Const: COMMON NORMALS: no acute distress, patient oriented x3, healthy appearing and alert GENERAL APPEARANCE: cooperative, comfortable and well hydrated HENMT: COMMON NORMALS: normocephalic, Normal external nose present and moist oral mucous membranes HEAD & SCALP: normocephalic NOSE: Normal external nose present Eye: COMMON NORMALS: Equal, round and reactive pupils present and EOMs intact bilaterally GENERAL EYE: appearance normal, both eyes and all related structures PUPIL: Yes Equal, round and reactive pupils present Neck/C-Spine: COMMON NORMALS: full ROM and no lymphadenopathy GENERAL: Yes normal visual inspection and Yes trachea midline CERVICAL SPINE: Yes cervical ROM normal Lymph: LYMPHATIC: no lymphadenopathy noted Chest: COMMONS NORMALS: normal inspection of the chest Resp: COMMON NORMALS: normal respiratory effort and clear to auscultation bilaterally AUSCULTATION: clear to auscultation bilaterally Cardio: COMMON NORMALS: regular rhythm, S1 normal heart sound present and S2 normal heart sound present RHYTHM: regular rhythm HEART SOUNDS: S1 normal heart sound present and S2 normal heart sound present GI: COMMON NORMALS: Soft to palpation and non-tender INSPECTION: Yes normal to inspection PALPATION: Yes Soft to palpation : COMMON NORMALS: Yes no CVA tenderness BLADDER/KIDNEY EXAM: Yes no CVA tenderness Back/Pelvis: COMMON NORMALS: no CVA tenderness and thoracic and lumbar spine normal to inspection Extremity: COMMON NORMALS: normal to inspection, capillary refill normal and no pedal edema GENERAL: Yes normal exam except as noted RIGHT LOWER EXTREMITY: Yes knee joint Right knee: Yes inspection (slight edema anterior), Yes palpation (pain to the medial cruciate ligament), Yes ROM (Limited flexion and extension secondary to pain, exam completed in extensio) and Yes neurovascular exam (Distally intact) OTHER: Other joints of the right extremity were evaluated for pain/injury, none appreciated, she did not complain of neck pain or back pain upon exam Neuro: COMMON NORMALS: patient oriented x3 and no focal motor deficits SENSORIUM/ORIENTATION: Yes alert Psych: COMMON NORMALS: mental status grossly normal, Normal thought process present and cooperative ACTIVITY/MOTOR BEHAVIOR: Yes appropriate eye contact THOUGHT PROCESS: Normal thought process present Skin: COMMON NORMALS: no rashes or lesions noted and turgor normal GENERAL SKIN EXAM: no rashes or lesions noted and turgor normal Course ED course: 40-year-old female patient presents to the emergency department with right knee weakness and near fall sustained today around noon while walking downstairs. She has known right knee sprain and has MRI pending February 24, 2021. Upon exam, she is requesting Dr. Steen as she has established care with him in the past. Social service referral placed to help with referral process. X-ray of the right knee completed today did not reveal acute abnormality; however, formal radiology interpretation pending. She was placed in a knee immobilizer, advised to rest and elevate the right knee with cool compressions. Vital Signs: Vital signs: Vital Signs Temperature 98.7 F 02/19/21 16:46 Pulse Rate 98 02/19/21 16:46 Respiratory Rate 18 02/19/21 16:46 Blood Pressure 160/101 02/19/21 16:46 Pulse Oximetry 95 02/19/21 16:46 Discharge Plan Discharge Patient Disposition: Home Clinical Impression: Acute knee pain Qualifiers: Laterality: right Qualified Code(s): M25.561 - Pain in right knee Right knee sprain Qualifiers: Encounter type: initial encounter Involved ligament of knee: medial collateral ligament Qualified Code(s): S83.411A - Sprain of medial collateral ligament of right knee, initial encounter Condition: Stable Prescriptions: No Action (DME) nebulizers Misc See Rx Instructions .ROUTE .MEDSUPPLY Qty: 1 RF: 0 aripiprazole [Abilify] 5 mg tablet 5 mg PO DAILY Qty: 30 RF: 1 pramipexole [Mirapex] 0.125 mg tablet 0.125 mg PO .HS Qty: 30 RF: 1 albuterol sulfate [ProAir HFA] 90 mcg/actuation HFA aerosol inhaler 2 puff INHALATION Q6H PRN (Reason: shortness of breath) RF: 0 sumatriptan succinate [Imitrex] 100 mg tablet 100 mg PO Q2H PRN (Reason: migraine headache) Qty: 9 RF: 6 venlafaxine [Effexor XR] 150 mg capsule,extended release 24hr 150 mg PO DAILY Qty: 30 RF: 5 Aimovig Autoinjector 140 mg/mL auto-injector 140 mg SUBCUT .MONTHLY Qty: 1 RF: 2 albuterol sulfate 2.5 mg /3 mL (0.083 %) solution for nebulization 2.5 mg inhalation Q4H PRNRF: 0 lorazepam [Ativan] 1 mg tablet 1 mg PO BID PRN (Reason: anxiety) Qty: 60 RF: 0 metoprolol succinate 50 mg tablet extended release 24 hr 50 mg PO DAILY Qty: 30 RF: 5 losartan-hydrochlorothiazide 50-12.5 mg tablet 1.5 tab PO DAILY Qty: 45 RF: 5 Stiolto Respimat 2.5-2.5 mcg/actuation mist 2 puff inhalation DAILY Qty: 4 RF: 3 ibuprofen 800 mg Tablet 800 mg PO Q8H PRN (Reason: pain) RF: 0 Zyrtec 10 mg Tablet 10 mg PO DAILY RF: 0 hydroxyzine HCl 50 mg tablet 50 mg PO BEDTIME PRN (Reason: sleep) RF: 0 Robaxin-750 750 mg tablet 750 mg PO Q6H Qty: 30 RF: 0 Naprosyn 500 mg tablet 500 mg PO BID PRN (Reason: pain) Qty: 20 RF: 0 Discharge Orders: Discharge ED (Routine); Ordered 02/19/21 Ordered By: Kay Puente Referrals: Marcus Wills MD [Primary Care Provider] - Discharge Diet: Usual diet Discharge Activity: Limit activity as instructed Patient Instructions: Knee Sprain (ED), Crutch Instructions (ED), Knee Pain (ED), Knee Immobilizer (ED), Opioid Safety Activity Restrictions/Additional Instructions: Return to the emergency department if you develop worsening symptoms rehabilitation services manager will be contacting you with an appointment with Dr. Steen, continue your MRI appointment scheduled February 24, 2021 Keep the right knee elevated, cool compresses for pain, continue Tylenol and prescribed ibuprofen for pain Coding Level of Care Code ED Criminal Profiler for Chg Fwd Exam Comprehensive
--- NOTE | 2021-02-23 09:58 | DCPLANNER ---
water resource project manager had message to schedule a follow up appointment for patient with ortho for knee weakness. water resource project manager called the ortho clinic, spoke with Kath, gave clinic patients information. water resource project manager was told that patients information would be printed and reviewed. Clinic will call patient with appointment information.
--- NOTE | 2021-03-04 08:12 | DCPLANNER ---
Patient had a follow up appointment scheduled for 03.02.[address] Steen at [facility] - patient did attend appointment.
== END 2021-02-19 18:30 | disposition home or self-care (01) ==
PROVIDERS: Emergency Provider Nurse Practitioner Family; PCP Family Medicine
DX: S83.411A Sprain of medial collateral ligament of right knee, initial encounter (principal); F17.210 Nicotine dependence, cigarettes, uncomplicated; X58.XXXA Exposure to other specified factors, initial encounter
CPT/HCPCS: 29530; 73562; 99283

== ENCOUNTER 2021-02-25 06:42 | Outpatient (CLI) | payer MEDICARE, MEDICAID, SELFPAY ==
[2020-12-24 09:14] VITALS: BP 138/92; BMI 60.3
[2021-02-25 06:58] VITALS: BMI 60.6
--- NOTE | 2021-02-25 06:58 | ECG_ITS ---
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 Interpretive Statements NAME OF STUDY: LEXISCAN SESTAMIBI STRESS TEST INDICATION: Dyspnea PROCEDURE: At the baseline, the blood pressure was 180/68 mmHg, oxygen saturation 98% with a heart rate of 91 bpm. The electrocardiogram showed normal sinus rhythm, rightward axis with normal ST and T's. The Lexiscan was infused over a period of 20 seconds. A total of 0.4 milligrams of Lexiscan was infused. The stress phase was continued for a total of 5 minutes. Heart rate at the end of the stress phase was 97 bpm, oxygen saturation 96% with a blood pressure of 224/71 mmHg. The EKG at the peak infusion revealed sinus rhythm with no significant ST-T wave changes. Study was terminated due to protocol completion. Sestamibi was injected 20 seconds after the Lexiscan infusion. Blood pressure at the end of the recovery phase was 144/84 mmHg, oxygen saturation 93% with a heart rate of 94 beats per minute. CONCLUSION: 1. No significant EKG changes with the LexiScan infusion. 2. No LexiScan induced chest pain or cardiac arrhythmia. 3. Baseline hypertension with normal blood pressure and heart rate response. 4. Sestamibi/sestamibi perfusion scan pending; see separate report. Electronically Signed On 03-04-2021 12:55:04 CDT by Samara Hopson M.D. [id number]
--- NOTE | 2021-02-25 06:58 | NMCV_ITS ---
NM mary perf SPECT r/s* [id number] Laila Mcclain Age: 40 Gender: F : 1980 Exam Date: 02/25/2021 08:07 Ordering Phys: Samara Hopson MD ([email or web address]) Technologist: BRITTANY Moss Exam Location: [facility] Indications: DYSPNEA STRESS TEST [facility] IMAGE PROTOCOL Rest/Stress 1 Lexiscan Day Radiopharmaceutical Dose (mCi) Administration Site Administered by Rest: Tc-99m 10.7 IV BRITTANY Leonard Sestamibi Stress:Tc-99m 32.9 IV BRITTANY Leonard Sestamibi Rest: 25-Feb-2021 60 Discovery 630 Stress: 25-Feb-2021 30 Discovery 630 0.4mg Lexiscan. Supine position only as patient was unable to lay prone. SPECT RESULTS Technical Quality: Excellent Raw Data Analysis: Normal, Soft tissue attenuation, Breast attenuation Image Corrections: No attenuation or motion correction applied Summed Stress Score: 4 Summed Rest Score: 1 Summed Difference Score: 3 PERFUSION FINDINGS Small sized perfusion abnormality of mild severity of mid anterior wall with somewhat improved tracer uptake in mid anterior but some reversiblity noted in mid to apical anterolateral wall on supine stress images. FUNCTIONAL RESULTS (calculated via Gated SPECT) Stress Image LV EF (%): 75 Stress EDV (mL):88 TID: 0.91 Stress ESV (mL):22 FUNCTIONAL FINDINGS: The left ventricle is normal in size. Transient Ischemia Dilatation of 0.91. There is normal left ventricular systolic function. The left ventricular ejection fraction is normal with a value of 75%. There is normal left ventricular wall thickening with no regional wall motion abnormality. Normal end-diastolic end-systolic volumes. IMPRESSIONS 1. Small sized perfusion abnormality of mild severity of mid anterior wall with some reversiblity noted in mid to apical anterolateral alejandre. 2. This very likely represents breast and soft tissue attenuation artifact. However small area of ischemia in left anterior descending artery territory cannot be completely ruled out. 3. Overall left ventricular systolic function is normal without regional wall motion abnormalities, LVEF=75%. 4. No prior similar studies to compare. Samara Hopson MD (Electronically Signed) Final Date: 04 Mar 2021 12:39 S
[2021-02-25] MEDS: regadenoson 0.4 Mg/5 ml Syringe IVP (09:17)
[2021-02-25 09:23] VITALS: BP 144/84; PULSE 93
== END 2021-02-25 06:43 | disposition home or self-care (01) ==
LOC: CDL 06:43
PROVIDERS: PCP Family Medicine; Visit Provider Internal Medicine Cardiovascular Disease
DX: R06.00 Dyspnea, unspecified (principal); R06.02 Shortness of breath
CPT/HCPCS: 78452; 93017; A9500; J2785

== ENCOUNTER → 2021-03-06 14:22 | Outpatient (BNVA) | payer MEDICARE, MEDICAID, SELFPAY ==
[2020-12-24 09:14] VITALS: BP 138/92; BMI 60.3
== END ==
PROVIDERS: PCP Family Medicine; Visit Provider Orthopaedic Surgery
DX: Z01.812 Encounter for preprocedural laboratory examination (principal); Z20.822 Contact with and (suspected) exposure to COVID-19
CPT/HCPCS: 87635

== ENCOUNTER 2021-03-25 20:00 | Outpatient (CLI) | payer MEDICARE, MEDICAID, SELFPAY ==
[2020-12-24 09:14] VITALS: BP 138/92; BMI 60.3
== END 2021-03-25 20:01 | disposition home or self-care (01) ==
LOC: OPS 04-02 11:11
PROVIDERS: PCP Family Medicine; Visit Provider Orthopaedic Surgery
DX: G47.33 Obstructive sleep apnea (adult) (pediatric) (principal)
CPT/HCPCS: 95811

== ENCOUNTER 2021-03-29 08:56 | Emergency (ER) | payer MEDICARE, MEDICAID, SELFPAY ==
[2020-12-24 09:14] VITALS: BP 138/92; BMI 60.3
[2021-03-29 09:12] VITALS: BP 142/106; PULSE 104; RESP 14; TEMP 36.4; O2SAT 97; BMI 60.6
--- NOTE | 2021-03-29 09:15 | ED_ITS ---
HPI - General Adult General: Stated complaint: BACK PAIN Time Seen by Provider: 03/29/21 09:13 History of Present Illness: HPI narrative: This patient presents to the emergency department with complaint of left-sided low back pain. Patient states yesterday she was picking up laundry and felt a little strain. And then earlier this morning she tried to open her shower door and started having pain in the left low back. Patient states felt like somebody stabbing her when she tries to stand up straight. Patient is morbidly obese denies any significant history of chronic back issues. Patient does not appear to be in acute distress. Associated symptoms: Deny chest pain, dyspnea, headache(s), nausea, rash, palpitations or vomiting Review of Systems General: Reports: 10 or more systems reviewed and unremarkable except in HPI and below Const: Denies: fever(s), chills, body aches or fatigue Eyes: Denies: change in vision or blurry vision ENMT: Denies: throat pain, hoarseness or mouth pain Card: Denies: chest pain, palpitations, irregular heart rhythm, edema, swelling of feet/ankles or lightheadedness Resp: Denies: dyspnea, productive cough, non-productive cough, wheezing or pain on inspiration GI: Denies: abdominal pain, nausea or vomiting : Denies: flank pain, difficulty voiding, dysuria, urinary frequency, urinary urgency or urinary hesitancy Musc: Reports: back pain; Denies: neck pain, extremity pain, extremity swelling, joint pain, joint swelling, joint redness, joint warmth or limited range of motion Skin/Breast: Denies: rash, pruritus, erythema or skin tenderness Neuro: Denies: headache(s), numbness in extremities or weakness in extremities Psych: Denies: anxiety or depression PFS ED PFSH: Medical History Borderline personality disorder Common migraine with intractable migraine History of COPD History of neuropathy History of restless legs syndrome Morbid obesity Post-traumatic stress disorder, chronic Sleep apnea, unspecified Surgical History History of bladder repair surgery History of endometrial ablation History of hysterectomy History of shoulder surgery History of tubal ligation Family History Brother Diabetes Mother , Acute leukemia at age 42 Cancer Father Cancer Stage IV Kidney Cancer Grandmother Diabetes maternal Grandfather Stroke maternal Social History Smoking and tobacco status: current every day smoker e-cigarettes E-Cigarette Details: vaporizer device and with nicotine E-cig/vape details: 5% Nicotine - 2020 - Hx of 0.5 PPD x 26 Years Quit status (tobacco): has tried quititng Number of times tried to quit tobacco: 6 Second hand smoke exposure: Yes Smoking risk assessment/counseling performed?: Yes Alcohol intake: current Alcohol intake frequency: holidays/special occasions only Alcohol type: wine and hard liquor Counseling given: No 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, 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 Pets and animals: Yes Pets & animals: cat(s) and dog(s) History of recent travel: No ([place]) Current gender identity: Female Carolee/Tenriism: Wicca Agree to transfusion: Yes Female Reproductive History: Date of last menstrual period: 08/28/18 Para: 3 Spontaneous abortions: No Physical Exam Const: COMMON NORMALS: no acute distress, average body habitus, patient oriented x3, no limitations, healthy appearing, alert and well nourished HENMT: COMMON NORMALS: normocephalic, atraumatic, hearing grossly normal bilaterally, external ears normal, EAC's normal, TM's normal bilaterally, Normal external nose present, Normal nasal mucous membranes and turbinates present, moist oral mucous membranes, oropharynx normal, dentition normal and gingiva normal HEAD & SCALP: normocephalic and atraumatic NOSE: Normal external nose present and Normal nasal mucous membranes and turbinates present EXTERNAL EAR: Yes external ears normal EXTERNAL AUDITORY CANAL: EAC's normal TYMPANIC MEMBRANE: TM's normal bilaterally Neck/C-Spine: COMMON NORMALS: full ROM, no lymphadenopathy, supple, no meningeal signs, no JVD, Thyroid normal and No carotid bruits THYROID: Thyroid normal Chest: COMMONS NORMALS: normal inspection of the chest, normal palpation of entire chest wall, normal inspection of the breasts and normal palpation of the breasts Breast/axilla inspection: Yes normal inspection of the breasts BREAST/AXILLA PALPATION: Yes normal palpation of the breasts Resp: COMMON NORMALS: normal respiratory effort, No retractions, No use of accessory muscles, clear to auscultation bilaterally and percussion normal AUSCULTATION: clear to auscultation bilaterally PERCUSSION: percussion normal Cardio: COMMON NORMALS: no JVD, regular rate, regular rhythm, S1 normal heart sound present, S2 normal heart sound present, No gallops present (Cardio), No clicks present (Cardio), No murmurs present (Cardio), No rub (Cardio) and Peripheral pulses 2+ throughout RATE: regular rate RHYTHM: regular rhythm HEART SOUNDS: S1 normal heart sound present and S2 normal heart sound present PERIPHERAL PULSES: Peripheral pulses 2+ throughout GI: COMMON NORMALS: Normal to inspection, nondistended, normoactive bowel sounds present, Soft to palpation, non-tender, No hepatosplenomegaly present, no masses and no bruits PALPATION: Yes Soft to palpation and Yes No hepatosplenomegaly present : COMMON NORMALS: Yes no CVA tenderness, Yes normal external appearance, Yes normal appearance of the vagina, Yes normal appearance of the cervix, Yes normal bimanual exam, Yes No adnexal tenderness and Yes no masses BLADDER/KIDNEY EXAM: Yes no CVA tenderness BIMANUAL EXAM - VAGINA & UTERUS: Yes normal bimanual exam Back/Pelvis: COMMON NORMALS: no CVA tenderness, thoracic and lumbar spine normal to inspection, no thoracic nor lumbar tenderness, thoraco-lumbar ROM normal and straight leg raise negative bilaterally Extremity: COMMON NORMALS: normal to inspection, full ROM, capillary refill normal, no joint enlargement, no clubbing, cyanosis or edema, no calf tenderness and no pedal edema Neuro: COMMON NORMALS: patient oriented x3 SENSORIUM/ORIENTATION: Yes alert MENINGEAL SIGNS: Yes no meningeal signs MDM - General Adult MDM Narrative: Medical decision making narrative: This patient presents to the emergency department with complaint of left-sided low back pain. Patient states yesterday she was picking up laundry and felt a little strain. And then earlier this morning she tried to open her shower door and started having pain in the left low back. Patient states felt like somebody stabbing her when she tries to stand up straight. Patient is morbidly obese denies any significant history of chronic back issues. Patient does not appear to be in acute distress. Encourage rest. Alternate heat and ice. Stretching exercises as tolerated. Take all medications as prescribed. Follow-up with PCP in 3 to 5 days for further outpatient evaluation if needed. Patient states understanding Medical Records: Attestation: I reviewed the patient's medical records. Lab Data: Attestation: I reviewed the patient's lab results. Discharge Plan Discharge Patient Disposition: Home Clinical Impression: Lumbosacral strain Condition: Stable Prescriptions: New diclofenac sodium 75 mg tablet,delayed release (DR/EC) 75 mg PO BID PRN (Reason: pain) Qty: 20 RF: 0 No Action (DME) nebulizers Misc See Rx Instructions .ROUTE .MEDSUPPLY Qty: 1 RF: 0 aripiprazole [Abilify] 5 mg tablet 5 mg PO DAILY Qty: 30 RF: 1 pramipexole [Mirapex] 0.125 mg tablet 0.125 mg PO .HS Qty: 30 RF: 1 pravastatin 10 mg tablet 10 mg PO DAILY Qty: 30 RF: 3 albuterol sulfate [ProAir HFA] 90 mcg/actuation HFA aerosol inhaler 2 puff INHALATION Q6H PRN (Reason: shortness of breath) RF: 0 sumatriptan succinate [Imitrex] 100 mg tablet 100 mg PO Q2H PRN (Reason: migraine headache) Qty: 9 RF: 6 venlafaxine [Effexor XR] 150 mg capsule,extended release 24hr 150 mg PO DAILY Qty: 30 RF: 5 albuterol sulfate 2.5 mg /3 mL (0.083 %) solution for nebulization 2.5 mg inhalation Q4H PRN (Reason: sob) RF: 0 lorazepam [Ativan] 1 mg tablet 1 mg PO BID PRN (Reason: anxiety) Qty: 60 RF: 0 metoprolol succinate 50 mg tablet extended release 24 hr 50 mg PO DAILY Qty: 30 RF: 5 losartan-hydrochlorothiazide 50-12.5 mg tablet 1.5 tab PO DAILY Qty: 45 RF: 5 Anoro Ellipta 62.5-25 mcg/actuation blister with device 1 inh inhalation DAILY Qty: 60 RF: 3 Aimovig Autoinjector 140 mg/mL auto-injector See Rx Instructions .ROUTE .COMPLEX Qty: 1 RF: 3 ibuprofen 800 mg Tablet 800 mg PO Q8H PRN (Reason: pain) RF: 0 cetirizine [Zyrtec] 10 mg Tablet 10 mg PO DAILY RF: 0 hydroxyzine HCl 50 mg tablet 50 mg PO BEDTIME PRN (Reason: sleep) RF: 0 methocarbamol [Robaxin-750] 750 mg tablet 750 mg PO Q6H Qty: 30 RF: 0 naproxen [Naprosyn] 500 mg tablet 500 mg PO BID PRN (Reason: pain) Qty: 20 RF: 0 Discharge Orders: Discharge ED (Routine); Ordered 03/29/21 Ordered By: Dieter Marinelli Referrals: Marcus Wills MD [Primary Care Provider] - Discharge Diet: Advance as tolerated Discharge Activity: Increase activity as tolerated Patient Instructions: Opioid Safety Activity Restrictions/Additional Instructions: Encourage rest. Alternate heat and ice. Stretching exercises as tolerated. Take all medications as prescribed. Follow-up with PCP in 3 to 5 days for further outpatient evaluation if needed. Coding Level of Care Code ED Vice President Of Product Marketing for Sheila Meraz
[2021-03-29 09:18] VITALS: O2SAT 98
== END 2021-03-29 09:25 | disposition home or self-care (01) ==
LOC: ER 09:36
PROVIDERS: Emergency Provider Emergency Medicine; PCP Family Medicine
DX: S39.012A Strain of muscle, fascia and tendon of lower back, initial encounter (principal); J44.9 Chronic obstructive pulmonary disease, unspecified; F17.290 Nicotine dependence, other tobacco product, uncomplicated; X50.0XXA Overexertion from strenuous movement or load, initial encounter
CPT/HCPCS: 99282

== ENCOUNTER → 2021-04-07 16:25 | Outpatient (BNVA) | payer MEDICARE, MEDICAID, SELFPAY ==
[2020-12-24 09:14] VITALS: BP 138/92; BMI 60.3
== END ==
PROVIDERS: PCP Family Medicine; Visit Provider Orthopaedic Surgery
DX: Z01.812 Encounter for preprocedural laboratory examination (principal); Z20.822 Contact with and (suspected) exposure to COVID-19
CPT/HCPCS: 87635

== ENCOUNTER 2021-04-09 09:02 | Day surgery (SDC) | payer MEDICARE, MEDICAID, SELFPAY ==
[2020-12-24 09:14] VITALS: BP 138/92; BMI 60.3
[2021-04-08 13:29] VITALS: BMI 59.4
[2021-04-09] VITALS (9 sets, daily range): BP systolic 117–137; BP diastolic 61–89; PULSE 76–88; RESP 14–21; TEMP 36.2–36.6; O2SAT 88–96
[2021-04-09] MEDS: sodium chloride 0.9% 1,000 ML 30 ML IV (10:24)
--- NOTE | 2021-04-09 10:49 | P.ANESASSM_ITS ---
Pre-Anesthetic Assessment Pre-Anesthetic Assessment: Height/Weight: Height 1.73 m Weight 177.355 kg Temp Pulse Resp BP Pulse Ox 97.9 F 88 18 134/82 95 04/09/21 09:25 04/09/21 09:25 04/09/21 09:25 04/09/21 09:25 04/09/21 09:25 Preop Diagnosis: Knee Medial meniscal Tear Proposed Procedure: Operation Date: 04/09/21 10:45 Proposed Procedures p right knee arthroscopy with medial meniscectomy 69895 s83.241A(Right) - Sukhwinder Steen MD Was Beta Fabby taken within 24 hours: Yes Was Clonidine taken within 24 hours: N/A Last intake: Intake Last Liquid Date 04/08/21 Last Liquid Time 23:00 Last Solid Date 04/08/21 Last Solid Time 20:00 Social: Social History: Tobacco and No alcohol Exam: Pre-Anes Outpt Exam: alert, oriented x 3 and regular rate & rhythm Airway: Submandibular: WNL Cervical ROM: WNL MP: 2 Dentition: Full Pulmonary: Pulmonary: COPD and Sleep apnea CV/HEM: CV/HEM: HTN Metabolic: Metabolic: DM, Hyperlipidemia and Morbid obesity Neuropsych: Neuropsych: Anxiety and Depression Anesthetic Plan: ASA status: 3 Anesthesia: General Risk of > 500 ml blood loss (7ml/kg in children): No Meds/Allergies Current Medications: Current Medications Generic Name Dose Route Start Last Admin Trade Name Freq PRN Reason Stop Dose Admin Sodium Chloride 1,000 mls @ 30 ml s/hr 04/09/21 09:15 04/09/21 10:24 Sodium Chloride 0.9% IV 04/10/21 09:14 30 mls/hr .Q24H JUD Administration PFSH Anesthesia PFSH: Medical History Borderline personality disorder Common migraine with intractable migraine History of COPD History of neuropathy History of restless legs syndrome Morbid obesity Post-traumatic stress disorder, chronic Sleep apnea, unspecified Surgical History History of bladder repair surgery History of endometrial ablation History of hysterectomy History of shoulder surgery History of tubal ligation Family History Brother Diabetes Mother , Acute leukemia at age 42 Cancer Father Cancer Stage IV Kidney Cancer Grandmother Diabetes maternal Grandfather Stroke maternal Social History Smoking and tobacco status: current every day smoker e-cigarettes E-Cigarette Details: vaporizer device and with nicotine E-cig/vape details: 5% Nicotine - 2020 - Hx of 0.5 PPD x 26 Years Quit status (tobacco): has tried quititng Number of times tried to quit tobacco: 6 Second hand smoke exposure: Yes Smoking risk assessment/counseling performed?: Yes Alcohol intake: current Alcohol intake frequency: holidays/special occasions only Alcohol type: wine and hard liquor Counseling given: No 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
--- NOTE | 2021-04-09 11:07 | P.HP_ITS ---
Same Day Surgery H&P Indication for Procedure/HPI DATE OF PROCEDURE: April 09, 2021 CHIEF COMPLAINT/INDICATIONFOR SURGICAL PROCEDURE: 40-year-old female with right knee pain since December that began with a twisting injury. An MRI suggested medial meniscal tearing. She is here for diagnostic arthroscopy and a likely medial meniscectomy. PREOP DIAGNOSIS: Knee Medial meniscal Tear PLANNED PROCEDRUE: Operation Date: 04/09/21 10:45 Proposed Procedures p right knee arthroscopy with medial meniscectomy [id number] s83.241A(Right) - Sukhwinder Steen MD Medications/Allergies* Home Medications Medication Instructions Recorded Confirmed Type albuterol sulfate 90 mcg/actuation 2 puff INHALATION Q6H PRN 12/10/19 04/09/21 History aerosol inhaler nebulizers #1 each 01/02/20 03/02/21 History ibuprofen 800 mg PO Q8H PRN 03/27/20 04/08/21 History hydroxyzine HCl 50 mg PO BEDTIME PRN 08/20/20 04/09/21 History albuterol sulfate 2.5 mg INHALATION Q4H PRN 01/21/21 04/09/21 History Allergies/Adverse Reactions Allergy/AdvReac Type Severity Reaction Status Date / Time aspirin Allergy Severe ADR-Vomitin Verified 04/08/21 13:23 g lamotrigine [From Lamictal] Allergy Severe ALGY-Hives Verified 04/08/21 13:23 morphine Allergy Severe ALGY-Rash Verified 04/08/21 13:23 walnut Allergy Severe ALGY-Hives Verified 04/08/21 13:23 citalopram AdvReac Severe ADR-Halluci Verified 04/08/21 13:23 nating prednisone AdvReac Severe vomitting Verified 04/08/21 13:23 Current Medications: Generic Name Dose Route Start Last Admin Trade Name Freq PRN Reason Stop Dose Admin Sodium Chloride 1,000 mls @ 30 mls/hr 04/09/21 09:15 04/09/21 10:24 Sodium Chloride 0.9% IV 04/10/21 09:14 30 mls/hr .Q24H JUD Administration Pertinent History/Comorbid Conditions* Medical History (Updated 04/06/21 @ 00:01 by ) Borderline personality disorder Common migraine with intractable migraine History of COPD History of neuropathy History of restless legs syndrome Morbid obesity Post-traumatic stress disorder, chronic Sleep apnea, unspecified Surgical History (Updated 12/17/19 @ 17:56 by Sonny Aponte DPM) History of bladder repair surgery History of endometrial ablation History of hysterectomy History of shoulder surgery History of tubal ligation Family History (Updated 11/03/20 @ 11:49 by Madeleine Díaz RN) Mother, Acute leukemia at age 42 Diabetes Brother Grandmother maternal Cancer Mother Father Stage IV Kidney Cancer Stroke Grandfather maternal Social History Smoking and tobacco status: current every day smoker e-cigarettes E-Cigarette Details: vaporizer device and with nicotine E-cig/vape details: 5% Nicotine - 2020 - Hx of 0.5 PPD x 26 Years Quit status (tobacco): has tried quititng Number of times tried to quit tobacco: 6 Second hand smoke exposure: Yes Smoking risk assessment/counseling performed?: Yes Alcohol intake: current Alcohol intake frequency: holidays/special occasions only Alcohol type: wine and hard liquor Counseling given: No 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
[2021-04-09] MEDS: morphine 4 mg/mL SDV 1 mL 8 MG IM (11:54)
--- NOTE | 2021-04-09 12:10 | PM.OP ---
Operative Report Date of procedure: April 09, 2021 Pre-op Diagnosis: Right Knee Medial meniscal Tear Post-op diagnosis: same Post-op Diagnosis: Right medial meniscal tear, chondromalacia medial femoral condyle and patella Post-op Findings: As above Procedure Done: Right medial meniscectomy chondroplasty medial femoral condyle and patella Pathology: none sent Surgeon: Sukhwinder Steen Anesthesia: General Estimated blood loss (mL): 5 Findings: The patient had complex degenerative tearing of the central 30% of the medial meniscus. She had a area of a chondromalacia over the anterior medial femoral condyle approximately 5 x 10 mm with a spotty exposed subchondral bone. She had flaps and fissures centrally over her patella involving less than 50% of the thickness of that cartilage Condition: stable Disposition: PACU Procedure: The patient was taken to the operating room and given a general anesthesia. She is prepped and draped in the supine position with a tourniquet on the right thigh. The tourniquet was never inflated. The knee was initially entered through standard inferior medial and inferior lateral portal. The diagnostic portion of arthroscopy was performed. Initial attention was paid to the medial meniscus. Utilizing a straight basket unstable central degeneration was removed with the basket. The rim was cleaned up with an incisor shaver and Wyatt and Nephew Werewolf probe leaving a stable base of approximately 60% of the meniscus remaining. Areas of flaps and fissures were identified over small area of the anterior medial femoral condyle. Utilizing the shaver and Wyatt and Nephew Werewolf probe the margins were debrided back to a stable rim. On this left an exposed area perhaps a 5 x 10 mm of the spotty exposed subchondral bone but the remaining cartilage appeared reasonably healthy. The lateral compartment is inspected and found to be intact. Final attention was paid to the patella. Using incisor shaver the patella was debrided back to stable tissue. The Wyatt and Nephew Werewolf probe was used to abrade the patellar cartilage down to stable tissue. This involved debridement approximately 50% of the cartilage and certainly no point was exposed subchondral bone identified the knee was irrigated with saline. Portals were closed with 3-0 Prolene. Sterile dressings were applied. The patient was extubated taken recovery room in stable condition.
--- NOTE | 2021-04-09 13:32 | ANE.PACU2 ---
Inpatient post-anesthesia follow up: Airway intact: Yes Vital signs: Temperature 97.8 F Pulse Rate 86 Respiratory Rate 18 Blood Pressure 122/82 Pulse Oximetry 93 Oxygen Delivery Me thod Room Air Oxygen Flow Rate 3 Fraction of Inspir ed Oxygen Hydration adequate: Yes Nausea and vomiting: No Pain level: 1 Mental status: Baseline
== END 2021-04-09 13:30 | disposition home or self-care (01) ==
PROVIDERS: PCP Family Medicine; Visit Provider Orthopaedic Surgery
PROC: (CPT 29870; principal; 2021-04-09 10:35)
DX: S83.141A Lateral subluxation of proximal end of tibia, right knee, initial encounter (principal); X50.1XXA Overexertion from prolonged static or awkward postures, initial encounter; J44.9 Chronic obstructive pulmonary disease, unspecified; E66.01 Morbid (severe) obesity due to excess calories; Z68.43 Body mass index [BMI] 50.0-59.9, adult; G47.30 Sleep apnea, unspecified; F17.290 Nicotine dependence, other tobacco product, uncomplicated; E11.9 Type 2 diabetes mellitus without complications; E78.5 Hyperlipidemia, unspecified
CPT/HCPCS: 29881; J0690; J1100; J2270; J2405; J2704; J3010; J3490; J7030

== ENCOUNTER → 2021-05-20 11:11 | Outpatient (BNVA) | payer MEDICARE, MEDICAID, SELFPAY ==
[2020-12-24 09:14] VITALS: BP 138/92; BMI 60.3
== END ==
PROVIDERS: PCP Family Medicine; Visit Provider Nurse Practitioner
DX: F43.12 Post-traumatic stress disorder, chronic (principal); F60.3 Borderline personality disorder; G47.30 Sleep apnea, unspecified
CPT/HCPCS: 99214

== ENCOUNTER → 2021-05-28 08:51 | Outpatient (BNVA) | payer MEDICARE, MEDICAID, SELFPAY ==
[2020-12-24 09:14] VITALS: BP 138/92; BMI 60.3
== END ==
PROVIDERS: PCP Family Medicine; Visit Provider Nurse Practitioner Family
DX: Z20.822 Contact with and (suspected) exposure to COVID-19 (principal)
CPT/HCPCS: 87635

== ENCOUNTER 2021-06-21 10:06 | Inpatient (IN) | payer MEDICARE, MEDICAID, SELFPAY ==
[2020-12-24 09:14] VITALS: BP 138/92; BMI 60.3
[2021-06-21 10:09] VITALS: BP 130/97; PULSE 96; RESP 16; TEMP 36.2; O2SAT 97; BMI 60.6
--- NOTE | 2021-06-21 10:19 | ED_ITS ---
HPI - General Adult General: Chief complaint: Psychiatric Symptoms Stated complaint: SI Time Seen by Provider: 06/21/21 10:08 History of Present Illness: HPI narrative: HPI: [40]yo patient w/ hx of depression, bipolar disorder, borderline personality, PTSD BIBA for suicidal ideation today. Patient called EMS after she planned to take all of her ativan medicine today because I didn't have a will to live. On arrival, the patient is AAOx3 and cooperative with my evaluation. No focal complaints of chest pain, shortness of breath, palpitations, N/V, focal GI/ complaints. Denies HI. No complaints of hallucinations. Onset: 1 day ago Duration: ongoing Location: home Severity: severe Review of Systems Narrative: Constitutional: No fever, no chills. HEENT: No vision changes CV: No chest pain, no palpitations PULM: No productive cough, no dyspnea. GI: No abdominal pain, no N/V/D. : No dysuria MSKEL: No muscle pain SKIN: No new rashes, no lesions. NEURO: No headache, no focal weakness. HEME: No visible bruises PSYCH: Normal mood, +SI PFSH ED PFSH: Medical History (Updated 06/21/21 @ 10:21 by Shima Echevarria MD) Borderline personality disorder Common migraine with intractable migraine History of COPD History of neuropathy History of restless legs syndrome Morbid obesity Post-traumatic stress disorder, chronic Psychiatric care Sleep apnea, unspecified Surgical History History of bladder repair surgery History of endometrial ablation History of hysterectomy History of shoulder surgery History of tubal ligation Family History Brother Diabetes Mother , Acute leukemia at age 42 Cancer Father Cancer Stage IV Kidney Cancer Grandmother Diabetes maternal Grandfather Stroke maternal Social History Smoking and tobacco status: current every day smoker e-cigarettes E-Cigarette Details: vaporizer device and with nicotine E-cig/vape details: 5% Nicotine - 2020 - Hx of 0.5 PPD x 26 Years Quit status (tobacco): has tried quititng Number of times tried to quit tobacco: 6 Second hand smoke exposure: Yes Smoking risk assessment/counseling performed?: Yes Alcohol intake: current Alcohol intake frequency: holidays/special occasions only Alcohol type: wine and hard liquor Counseling given: No 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, 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 Pets and animals: Yes Pets & animals: cat(s) and dog(s) Current gender identity: Female Carolee/Lutheran: Wicca Agree to transfusion: Yes Female Reproductive History: Date of last menstrual period: 08/28/18 Para: 3 Spontaneous abortions: No Physical Exam Narrative: EXAM NARRATIVE: Head: Atraumatic Eyes: PERRL, conjunctiva without injection, eyes tracking ENT: Mucous membrane moist NECK: Supple without lymphadenopathy LUNGS: LCTAB CV: RRR ABDOMEN: Soft, nontender in all quadrants, no guarding or rebound tenderness EXTREMITY: Normal ROM SKIN: No rash or erythema NEURO: Awake and alert. No focal weakness PSYCH: Cooperative mood and affect. Course Vital Signs: Vital signs: Vital Signs Temperature 97.1 F L 06/21/21 10:09 Pulse Rate 96 06/21/21 10:09 Respiratory Rate 16 06/21/21 10:09 Blood Pressure 130/97 06/21/21 10:09 Pulse Oximetry 97 06/21/21 10:09 MDM - General Adult MDM Narrative: Medical decision making narrative: [40]yo patient w/ hx of multiple psych issues presenting voluntarily for acute SI with plan. HDS, exam within normal limit Thoughts are linear and organized, and the patient has no AH/VH, or HI. Clinically the patient displays no overt toxidrome; they are well appearing, with low suspicion for toxic ingestion given history and exam. Symptoms unlikely 2/2 anemia, hypothyroidism, infection, or ICH. Workup: CBC, CMP, Lipase, salicylate/tylenol, beta HCG Lab findings: wnl [12:30] On reassessment, labs and workup wnl. Patient is hemodynamically stable with no acute medical complaints. Case discussed with psychiatric provider Dr. Migel Velez at [facility] psych inpatient with recommendation for admission Disposition: Psych Lab Data: Labs: Lab Results 06/21/21 06/21/21 Range/Units 10:20 10:20 WBC 9.5 (4.0-10.0) 10^3/ uL RBC 4.94 (4.1-5.3) 10^6/u L Hgb 14.1 (11.5-15.3) g/dL Hct 44.2 (37.0-47.0) % MCV 89.5 (81-99) fl MCH 28.5 (28.0-34.0) pg MCHC 31.9 (30.0-36.0) g/dL RDW 14.4 (12.1-15.1) % Plt Count 254 (130-400) 10^3/c mm MPV 9.8 (7.4-10.4) fL Neut % (Auto) 68.8 % Lymph % (Auto) 20.7 % Mayes % (Auto) 5.0 % Eos % (Auto) 4.6 % Baso % (Auto) 0.5 % Neut # (Auto) 6.53 (1.8-7.7) 10^3/u L Lymph # (Auto) 2.0 (0.8-4.8) 10^3/u L Mayes # (Auto) 0.5 (0.2-0.9) 10^3/u L Eos # (Auto) 0.4 (0.0-0.8) 10^3/u L Baso # (Auto) 0.1 (0.0-0.1) 10^3/u L Nucleated RBC % (a uto) 0 % Nucleated RBCs # 0.0 /100WBC Sodium 139 (136-145) mmol/L Potassium 4.0 (3.5-5.1) mmol/L Chloride 104 (98-107) mmol/L Carbon Dioxide 25 (22-29) mmol/L Anion Gap 14.0 (5-19) BUN 10 (6-20) mg/dL Creatinine 0.6 (0.5-0.9) mg/dL GFR Calculation 109.6 (90-130) mL/min Glucose 111 (65-115) mg/dL Calculated Osmolal ity 288 (285-295) mOsm/k g Calcium 8.7 (8.5-10.5) mg/dL Salicylates < 0.3 L (3-10) mg/dL Acetaminophen < 5.0 L (10-30) ug/mL Discharge Plan Discharge Patient Disposition: Admitted As Inpatient Clinical Impression: Depression with suicidal ideation Condition: Stable Coding Level of Care Code ED Policy Services Representative for Sheila Meraz
[2021-06-21 10:27] LABS: Basophils # 0.1 10^3/uL (0.0-0.1); Basophils % 0.5 %; Eosinophils # 0.4 10^3/uL (0.0-0.8); Eosinophils % 4.6 %; Hematocrit 44.2 % (37.0-47.0); Hemoglobin 14.1 g/dL (11.5-15.3); Lymphocytes % 20.7 %; Mean Corpuscular HGB Conc 31.9 g/dL (30.0-36.0); Mean Corpuscular Hemoglobin 28.5 pg (28.0-34.0); Mean Corpuscular Volume 89.5 fl (81-99); Mean Platelet Volume 9.8 fL (7.4-10.4); Monocytes # 0.5 10^3/uL (0.2-0.9); Neutrophils # 6.53 10^3/uL (1.8-7.7); Neutrophils % 68.8 %; Nucleated Red Blood Cells % 0 %; Platelet Count 254 10^3/cmm (130-400); Red Blood Count 4.94 10^6/uL (4.1-5.3); Red Cell Distribution Width 14.4 % (12.1-15.1); White Blood Count 9.5 10^3/uL (4.0-10.0)
[2021-06-21 10:49] LABS: Blood Urea Nitrogen 10 mg/dL (6-20); Calcium 8.7 mg/dL (8.5-10.5); Carbon Dioxide 25 mmol/L (22-29); Chloride 104 mmol/L (98-107); Glomerular Filtration Rate 109.6 mL/min (90-130); Glucose 111 mg/dL (65-115); Osmolality Calculated 288 mOsm/kg (285-295); Sodium 139 mmol/L (136-145)
[2021-06-21 10:50] LABS: Acetaminophen < 5.0 ug/mL (10-30); Salicylate < 0.3 mg/dL (3-10)
[2021-06-21 12:07] VITALS: BP 123/87; PULSE 94; RESP 20; TEMP 36.8; O2SAT 92
[2021-06-21 14:22] VITALS: BP 140/86; PULSE 88; RESP 17; TEMP 36.2; O2SAT 95
[2021-06-21 21:02] VITALS: BP 141/96; PULSE 89; RESP 17; TEMP 36.6; O2SAT 95
[2021-06-21] MEDS: hyDROXYzine 25 mg Capsule 50 MG PO (22:08)
[2021-06-22 06:00] VITALS: BP 110/57; PULSE 66; RESP 15; TEMP 36.6; O2SAT 98
[2021-06-22 14:00] VITALS: BP 129/78; PULSE 83; RESP 18; TEMP 36.8; O2SAT 95
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
[2021-06-22] MEDS: venlafaxine ER (24HR) 75 mg Capsule 225 MG PO (17:34)
--- NOTE | 2021-06-22 18:25 | PC.RESP ---
SMOKING CESSATION AND PULMONARY REHAB INFORMATION SENT TO PATIENT.
--- NOTE | 2021-06-22 21:40 | PC.NURSE ---
PM Assessment Pt confirms SI at this time, contracts for safety, denies AVH, Denies HI and Denies pain. Pt cooperative with staff, alert and oriented.
[2021-06-22 22:00] VITALS: BP 137/92; PULSE 107; RESP 17; TEMP 36.8; O2SAT 97
[2021-06-22] MEDS: pramipexole 0.25 mg Tablet 0.125 MG PO (22:58)
[2021-06-23 06:00] VITALS: BP 107/72; PULSE 88; RESP 20; TEMP 37.1; O2SAT 95
[2021-06-23] MEDS: metoprolol succinate ER (24 HR) 50 mg Tablet PO (08:21)
[2021-06-23] MEDS: pantoprazole DR 40 mg Tablet PO (08:21)
[2021-06-23] MEDS: venlafaxine ER (24HR) 75 mg Capsule 225 MG PO (08:21)
[2021-06-23] MEDS: losartan 50 mg Tablet PO (08:21)
[2021-06-23] MEDS: hydroCHLOROthiazide 25 mg Tablet 12.5 MG PO (08:22)
[2021-06-23] MEDS: atorvastatin 40 mg Tablet 20 MG PO (08:22)
[2021-06-23] MEDS: ARIPiprazole 10 mg Tablet 5 MG PO (08:22)
--- NOTE | 2021-06-23 12:29 | NPU.GN ---
[facility] Group Topic:Thought Processing General Mood of Group: The patient come to group willingly. The patient was on time, good hygiene and properly dressed. The group discussed how the mind thinks and discussed negative thoughts and how we process those negative thoughts. The patient did participate in the group. The patient were all gave a thought table to be able to list specific negative thoughts and were able to come up with different ways to cope with those thoughts. The group was able to go outside for fresh air, which in turn helped the group to open up more. Information about the NPU was discussed, information about the routine for NPU, the doctor and nursing staff as well as social work faculty member and how they each play a part in their care while here. 96 hr holds and 21 day holds were also explained as well.
[2021-06-23 14:00] VITALS: BP 101/62; PULSE 76; RESP 20; TEMP 36.3; O2SAT 94
[2021-06-23 20:53] VITALS: BP 132/84; PULSE 84; RESP 19; TEMP 36.4; O2SAT 95
[2021-06-23] MEDS: pramipexole 0.25 mg Tablet 0.125 MG PO (21:23)
[2021-06-23] MEDS: hyDROXYzine 25 mg Capsule 50 MG PO (21:23)
[2021-06-24] MEDS: acetaminophen 325 mg Tablet 650 MG PO (02:50)
[2021-06-24 06:00] VITALS: BP 137/86; PULSE 77; RESP 17; TEMP 36.9; O2SAT 95
[2021-06-24] MEDS: losartan 50 mg Tablet PO (07:41)
[2021-06-24] MEDS: hydroCHLOROthiazide 25 mg Tablet 12.5 MG PO (07:41)
[2021-06-24] MEDS: ARIPiprazole 10 mg Tablet 5 MG PO (07:41)
[2021-06-24] MEDS: atorvastatin 40 mg Tablet 20 MG PO (07:41)
[2021-06-24] MEDS: metoprolol succinate ER (24 HR) 50 mg Tablet PO (07:42)
[2021-06-24] MEDS: venlafaxine ER (24HR) 75 mg Capsule 225 MG PO (07:42)
[2021-06-24] MEDS: pantoprazole DR 40 mg Tablet PO (07:42)
[2021-06-24 08:05] VITALS: BP 137/86; PULSE 77; RESP 17; TEMP 36.9; O2SAT 95
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
== END 2021-06-24 08:30 | disposition home or self-care (01) | DRG 881 ==
LOC: ER 10:49 → NP 11:18
PROVIDERS: Admitting Provider Psychiatry & Neurology Psychiatry; Emergency Provider Emergency Medicine; PCP Family Medicine; Visit Provider Psychiatry & Neurology Child & Adolescent Psychiatry
DX: F32.9 Major depressive disorder, single episode, unspecified (principal); R45.851 Suicidal ideations; Z68.44 Body mass index [BMI] 60.0-69.9, adult; F43.12 Post-traumatic stress disorder, chronic; F60.3 Borderline personality disorder; E66.01 Morbid (severe) obesity due to excess calories; G43.019 Migraine without aura, intractable, without status migrainosus; G47.30 Sleep apnea, unspecified; F17.290 Nicotine dependence, other tobacco product, uncomplicated; J44.9 Chronic obstructive pulmonary disease, unspecified; Z91.5 Personal history of self-harm; Z62.810 Personal history of physical and sexual abuse in childhood; Z86.59 Personal history of other mental and behavioral disorders
CPT/HCPCS: 80048; 80307; 84702; 85025; 99285; G0378

== ENCOUNTER → 2021-06-24 08:41 | Outpatient (BNVA) | payer MEDICARE, MEDICAID, SELFPAY ==
[2020-12-24 09:14] VITALS: BP 138/92; BMI 60.3
== END ==
PROVIDERS: PCP Family Medicine; Visit Provider Specialist
DX: G43.019 Migraine without aura, intractable, without status migrainosus (principal); G62.9 Polyneuropathy, unspecified; G47.33 Obstructive sleep apnea (adult) (pediatric); E66.9 Obesity, unspecified; Z68.44 Body mass index [BMI] 60.0-69.9, adult; F17.200 Nicotine dependence, unspecified, uncomplicated
CPT/HCPCS: 99214

== ENCOUNTER → 2021-06-26 12:40 | Outpatient (BNVA) | payer MEDICARE, MEDICAID, SELFPAY ==
[2020-12-24 09:14] VITALS: BP 138/92; BMI 60.3
== END ==
PROVIDERS: PCP Family Medicine; Visit Provider Nurse Practitioner
DX: F43.12 Post-traumatic stress disorder, chronic (principal); F60.3 Borderline personality disorder; G47.30 Sleep apnea, unspecified
CPT/HCPCS: 99214

== ENCOUNTER 2021-07-07 07:04 | Outpatient (CLI) | payer MEDICARE, MEDICAID, SELFPAY ==
[2020-12-24 09:14] VITALS: BP 138/92; BMI 60.3
--- NOTE | 2021-07-07 07:10 | NM_ITS ---
WS: [id number] NUCLEAR MEDICINE HIDA SCAN WITH GALLBLADDER EJECTION FRACTION HISTORY: RUQ PAIN COMPARISON: Gallbladder ultrasound 05/26/2021 TECHNIQUE: The patient was intravenously injected with 4.9 mCi of TC99m Mebrofenin. Immediate imaging over the right upper quadrant was followed by 5 minute image and additional images for a total of 60 minutes. Normal uptake throughout the liver. Liver is enlarged. Activity identified in the gallbladder at 15 minutes and well distended by 60 minutes. Activity in the proximal small bowel was seen by 60 minutes. Good washout of the radiotracer from the liver by 60 minutes. The patient then drank 8 ounces of Ensure Plus. Ejection fraction at 60 minutes was 81%. Normal GB ej ection fraction is 35-75%. Post fatty meal symptoms: None. NM/NM hepatobiliary w phar* [id number] IMPRESSION: 1. Normal HIDA scan. 2. Normal gallbladder ejection fraction.
== END 2021-07-07 07:05 | disposition home or self-care (01) ==
LOC: NM 07:06
PROVIDERS: PCP Family Medicine; Visit Provider Family Medicine
DX: R10.11 Right upper quadrant pain (principal)
CPT/HCPCS: 78227; A9537

== ENCOUNTER → 2021-07-24 08:40 | Outpatient (BNVA) | payer MEDICARE, MEDICAID, SELFPAY ==
[2020-12-24 09:14] VITALS: BP 138/92; BMI 60.3
== END ==
PROVIDERS: PCP Family Medicine; Visit Provider Nurse Practitioner
DX: F43.12 Post-traumatic stress disorder, chronic (principal); F60.3 Borderline personality disorder; F17.210 Nicotine dependence, cigarettes, uncomplicated; G47.30 Sleep apnea, unspecified
CPT/HCPCS: 99214

== ENCOUNTER 2021-08-02 03:35 | Inpatient (IN) | payer MEDICARE, MEDICAID, SELFPAY ==
[2020-12-24 09:14] VITALS: BP 138/92; BMI 60.3
[2021-08-02] VITALS (13 sets, daily range): BP systolic 117–156; BP diastolic 71–100; PULSE 95–104; RESP 16–23; TEMP 36.1–37.5; O2SAT 82–94; BMI 59.4
--- NOTE | 2021-08-02 03:22 | XRR_ITS ---
PROCEDURE INFORMATION: Exam: XR Chest Exam date and time: 08/02/2021 3:22 AM Age: 40 years old Clinical indication: Dyspnea; Additional info: SOB TECHNIQUE: Imaging protocol: XR of the chest. Views: 1 view. COMPARISON: CR XR chest 1V portable [id number] 12/03/2020 6:39 PM FINDINGS: Lungs: Unremarkable. No consolidation. Pleural spaces: Unremarkable. No pleural effusion. No pneumothorax. Heart/Mediastinum: Unremarkable. No cardiomegaly. Bones/joints: Unremarkable. Soft tissues: Examination limited by body habitus. XR/XR chest 1V portable [id number] IMPRESSION: 1. Examination limited by body habitus. 2. No acute disease. Radiation Dose CTDIVOL = (mGy): DLP = (mGy-cm)
--- NOTE | 2021-08-02 04:19 | ECG_ITS ---
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 Measurements Intervals [place] Rate: 97 P: 25 NV: 143 QRS: 68 QRSD: 90 T: 56 QT: 332 QTc: 423 Interpretive Statements SINUS RHYTHM Compared to ECG 12/03/2020 19:59:12 No significant changes Electronically Signed On 08-02-2021 23:20:56 CDT by Jack Troy M.D. [id number]
[2021-08-02 04:35] LABS: Basophils % 0.5 %; Eosinophils # 0.3 10^3/uL (0.0-0.8); Eosinophils % 3.6 %; Hemoglobin 13.1 g/dL (11.5-15.3); Lymphocytes # 1.3 10^3/uL (0.8-4.8); Lymphocytes % 15.3 %; Mean Corpuscular Hemoglobin 28.2 pg (28.0-34.0); Mean Corpuscular Volume 88.4 fl (81-99); Monocytes # 0.6 10^3/uL (0.2-0.9); Monocytes % 6.8 %; Neutrophils % 73.6 %; Nucleated Red Blood Cells % 0 %; Platelet Count 252 10^3/cmm (130-400); Red Blood Count 4.64 10^6/uL (4.1-5.3); Red Cell Distribution Width 14.9 % (12.1-15.1); White Blood Count 8.4 10^3/uL (4.0-10.0)
[2021-08-02] MEDS: ipratropium-albuterol 3 mL Neb INHALATION (04:40)
[2021-08-02 04:43] LABS: D Dimer 0.36 ug/mIFEU (0-0.59)
[2021-08-02] MEDS: dexamethasone 4 mg/mL INJ 6 MG IVP (04:44)
[2021-08-02] MEDS: ondansetron 2 mg/ML SDV 2 mL 4 MG IV (04:44)
[2021-08-02] MEDS: LORazepam 2 mg/mL INJ 1 mL 1 MG IVP (04:44)
[2021-08-02 04:48] LABS: Troponin T (5th) Once 6 ng/L (0-10)
[2021-08-02 05:01] LABS: Alanine Aminotransferase 24 U/L (0-33); Albumin Level 3.7 g/dL (3.5-5.2); Alkaline Phosphatase 81 IU/L (35-105); Anion Gap 13.1 (5-19); Aspartate Amino Transferase 15 U/L (0-32); Blood Urea Nitrogen 10 mg/dL (6-20); C Reactive Protein 59.4 mg/L (0.0-4.9); Calcium 8.7 mg/dL (8.5-10.5); Carbon Dioxide 26 mmol/L (22-29); Chloride 100 mmol/L (98-107); Globulin 2.7 g/dL (1.3-4.6); Glomerular Filtration Rate 135.3 mL/min (90-130); Glucose 120 mg/dL (65-115); NT Pro B Type Natriuretic Pept 98 pg/mL (0-125); Osmolality Calculated 280 mOsm/kg (285-295); Potassium 4.1 mmol/L (3.5-5.1); Sodium 135 mmol/L (136-145); Total Bilirubin 0.5 mg/dL (0.15-1.2); Total Protein 6.4 g/dL (6.6-8.7)
[2021-08-02 05:08] LABS: ABG PCO2 39.1 mmHg (35-45); ABG PH Result 7.45 (7.35-7.45); Arterial Blood Gas Hematocrit 42.3 % (37-47); Base Excess ABG 2.6 mmol/L (-2.0-2.0); Blood Gas Allen Test Pos; Blood Gas Sample Site Radial, right; Blood Gas Sample Type Arterial; HCO3 ABG 26.8 mmol/L (22-26); Oxygen Device NC; PO2 ABG 65.4 mmHg (80.0-100.0)
[2021-08-02 05:21] LABS: SARS Covid-2 Antigen Negative (Negative)
--- NOTE | 2021-08-02 05:44 | ED_ITS ---
HPI - COVID General: Chief Complaint: COVID symptoms Stated Complaint: SOB Time Seen by Provider: 08/02/21 03:56 Triage information: Has fever, cough or shortness of breath . No known COVID + exposure last 14 days History of Present Illness: HPI Narrative: 40-year-old female presenting with cough, shortness of breath, and some wheezing over the last couple of days. She was seen at a primary care physician's clinic yesterday, tested negative by rapid antigen testing for Covid, and given prednisone. She has not taken the prednisone as it makes her sick at her stomach. She has been using breathing treatments, with some help. She states that she did have a fever last night. MD complaint: has COVID symptoms Prior covid testing: yes, results known COVID 19 common symptoms: positive fever(s), chills, cough, productive cough, dyspnea, fatigue, body aches and vomiting (post-tussive) COVID 19 other sytmptoms: positive chest pain, pleuritic pain and requiring oxygen Onset (ago): day(s) Severity: moderate Pertinent comorbid conditions: hypertension Treatment prior to arrival: breathing treatments COVID Results: SARS-CoV-2 Antigen (Rapid) Negative (Negative) 08/02/21 04:40 08/02/21 SARS-CoV-2 RNA (RT-PCR) Not detected (NOT DETECTED) 05/28/21 08:51 05/28/21 Nasal/Oral Coronavirus 2019 PCR Not detected 04/07/21 16:25 04/07/21 Review of Systems Const: Reports: fever(s), chills, body aches and fatigue Card: Reports: chest pain Resp: Reports: dyspnea and productive cough GI: Reports: vomiting (post-tussive) [facility] PFSH: Medical History (Updated 08/02/21 @ 06:22 by Costa Gunn DO) Borderline personality disorder Common migraine with intractable migraine History of COPD History of neuropathy History of restless legs syndrome Morbid obesity Nicotine dependence, cigarettes, uncomplicated Post-traumatic stress disorder, chronic Psychiatric care Sleep apnea, unspecified Surgical History History of bladder repair surgery History of endometrial ablation History of hysterectomy History of shoulder surgery History of tubal ligation Family History Brother Diabetes Mother , Acute leukemia at age 42 Cancer Father Cancer Stage IV Kidney Cancer Grandmother Diabetes maternal Grandfather Stroke maternal Social History Quit status (tobacco): has tried quititng Number of times tried to quit tobacco: 6 Second hand smoke exposure: Yes Smoking risk assessment/counseling performed?: Yes Alcohol intake: current Alcohol intake frequency: holidays/special occasions only Alcohol type: wine and hard liquor Counseling given: No 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, 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 Pets and animals: Yes Pets & animals: cat(s) and dog(s) Current gender identity: Female Carolee/Scientology: Wicca Agree to transfusion: Yes Female Reproductive History: Date of last menstrual period: 08/28/18 Para: 3 Spontaneous abortions: No Physical Exam Const: COMMON NORMALS: patient oriented x3 and alert GENERAL APPEARANCE: cooperative, in distress and ill appearing HENMT: COMMON NORMALS: normocephalic HEAD & SCALP: normocephalic Chest: COMMONS NORMALS: normal inspection of the chest Resp: EFFORT & INSPECTION: Yes tachypneic and Yes uses accessory muscles AUSCULTATION: no rales, rhonchi and no wheezes Cardio: COMMON NORMALS: regular rate and regular rhythm RATE: regular rate RHYTHM: regular rhythm GI: COMMON NORMALS: Normal to inspection, nondistended, normoactive bowel sounds present and Soft to palpation PALPATION: Yes Soft to palpation Neuro: COMMON NORMALS: patient oriented x3 SENSORIUM/ORIENTATION: Yes alert Course Consultations: Consultation #1: sabi Time: 06:16 Vital Signs: Vital signs: Vital Signs Temperature 96.9 F L 08/02/21 03:58 Pulse Rate 99 08/02/21 03:58 Respiratory Rate 18 08/02/21 03:58 Blood Pressure 154/100 08/02/21 03:58 Pulse Oximetry 82 L 08/02/21 04:03 MDM - COVID MDM Narrative: Medical decision making narrative: 40-year-old female with a history of lung disease. She presents with cough, some sputum production, wheezing, and hypoxia. On arrival she was 82% on room air. She does not usually use oxygen. Currently on 2 L she is satting 90%. She is mildly tachypneic currently. Blood pressure is 150 systolic. EKG does not show any acute ST changes. Her troponin is negative. Her D-dimer is also negative. Chest x-ray does not reveal a consolidation she tested Covid negative by rapid test on Tuesday, and she is rapid negative this morning. PCR is pending. She has received dexamethasone DuoNeb here and is feeling some better but still requiring oxygen. She will be admitted for hypoxic respiratory failure and bronchitis. Lab Data: Labs: Lab Results 08/02/21 08/02/21 08/02/21 04:05 04:05 04:05 WBC 8.4 10^3/uL 10^3/ uL (4.0-10.0) RBC 4.64 10^6/uL 10^6 /uL (4.1-5.3) Hgb 13.1 g/dL g/dL (11.5-15.3) Hct 41.0 % % (37.0-47.0) MCV 88.4 fl fl (81-99) MCH 28.2 pg pg (28.0-34.0) MCHC 32.0 g/dL g/dL (30.0-36.0) RDW 14.9 % % (12.1-15.1) Plt Count 252 10^3/cmm 10^3 /cmm (130-400) MPV 10.0 fL fL (7.4-10.4) Neut % (Auto) 73.6 % % Lymph % (Auto) 15.3 % % [place] % (Auto) 6.8 % % Eos % (Auto) 3.6 % % Baso % (Auto) 0.5 % % Neut # (Auto) 6.20 10^3/uL 10^3 /uL (1.8-7.7) Lymph # (Auto) 1.3 10^3/uL 10^3/ uL (0.8-4.8) [place] # (Auto) 0.6 10^3/uL 10^3/ uL (0.2-0.9) Eos # (Auto) 0.3 10^3/uL 10^3/ uL (0.0-0.8) Baso # (Auto) 0.0 10^3/uL 10^3/ uL (0.0-0.1) Nucleated RBC % (a uto) 0 % % Nucleated RBCs # 0.0 /100WBC /100W BC D-Dimer 0.36 ug/mIFEU ug/ mIFEU (0-0.59) Specimen Type Sample Site ABG pH ABG pCO2 ABG pO2 ABG HCO3 ABG Base Excess Danny Test Hematocrit O2 Delivery Device O2 Liters/Min FiO2 Graves Registration Specialist ID Sodium 135 mmol/L L mmol /L (136-145) Potassium 4.1 mmol/L mmol/L (3.5-5.1) Chloride 100 mmol/L mmol/L (98-107) Carbon Dioxide 26 mmol/L mmol/L (22-29) Anion Gap 13.1 (5-19) BUN 10 mg/dL mg/dL (6-20) Creatinine 0.5 mg/dL mg/dL (0.5-0.9) GFR Calculation 135.3 mL/min H mL /min (90-130) Glucose 120 mg/dL H mg/dL (65-115) Calculated Osmolal ity 280 mOsm/kg L mOs m/kg (285-295) Lactic Acid Calcium 8.7 mg/dL mg/dL (8.5-10.5) Total Bilirubin 0.5 mg/dL mg/dL (0.15-1.2) AST 15 U/L U/L (0-32) ALT 24 U/L U/L (0-33) Alkaline Phosphata se 81 IU/L IU/L (35-105) Troponin T Gen 5 n g/L C-Reactive Protein 59.4 mg/L H mg/L (0.0-4.9) NT-Pro-B Natriuret Pep 98 pg/mL pg/mL (0-125) Total Protein 6.4 g/dL L g/dL (6.6-8.7) Albumin 3.7 g/dL g/dL (3.5-5.2) Globulin 2.7 g/dL g/dL (1.3-4.6) SARS-CoV-2 Ag (Rap id) 08/02/21 08/02/21 08/02/21 04:05 04:05 04:40 WBC RBC Hgb Hct MCV MCH MCHC RDW Plt Count MPV Neut % (Auto) Lymph % (Auto) [place] % (Auto) Eos % (Auto) Baso % (Auto) Neut # (Auto) Lymph # (Auto) [place] # (Auto) Eos # (Auto) Baso # (Auto) Nucleated RBC % (a uto) Nucleated RBCs # D-Dimer Specimen Type Sample Site ABG pH ABG pCO2 ABG pO2 ABG HCO3 ABG Base Excess Danny Test Hematocrit O2 Delivery Device O2 Liters/Min FiO2 Graves Registration Specialist ID Sodium Potassium Chloride Carbon Dioxide Anion Gap BUN Creatinine GFR Calculation Glucose Calculated Osmolal ity Lactic Acid 1.0 mmol/L mmol/L (0.5-2.2) Calcium Total Bilirubin AST ALT Alkaline Phosphata se Troponin T Gen 5 n g/L 6 ng/L ng/L (0-10) C-Reactive Protein NT-Pro-B Natriuret Pep Total Protein Albumin Globulin SARS-CoV-2 Ag (Rap id) Negative (Negative) 08/02/21 04:58 WBC RBC Hgb Hct MCV MCH MCHC RDW Plt Count MPV Neut % (Auto) Lymph % (Auto) [place] % (Auto) Eos % (Auto) Baso % (Auto) Neut # (Auto) Lymph # (Auto) [place] # (Auto) Eos # (Auto) Baso # (Auto) Nucleated RBC % (a uto) Nucleated RBCs # D-Dimer Specimen Type Arterial Sample Site Radial, right ABG pH 7.45 (7.35-7.45) ABG pCO2 39.1 mmHg mmHg (35-45) ABG pO2 65.4 mmHg L mmHg (80.0-100.0) ABG HCO3 26.8 mmol/L H mmo l/L (22-26) ABG Base Excess 2.6 mmol/L H mmol /L (-2.0-2.0) Danny Test Pos Hematocrit 42.3 % % (37-47) O2 Delivery Device Nc O2 Liters/Min 3.0 % % FiO2 32.0 % % Graves Registration Specialist ID Tamma Sodium Potassium Chloride Carbon Dioxide Anion Gap BUN Creatinine GFR Calculation Glucose Calculated Osmolal ity Lactic Acid Calcium Total Bilirubin AST ALT Alkaline Phosphata se Troponin T Gen 5 n g/L C-Reactive Protein NT-Pro-B Natriuret Pep Total Protein Albumin Globulin SARS-CoV-2 Ag (Rap id) COVID Results: SARS-CoV-2 Antigen (Rapid) Negative (Negative) 08/02/21 04:40 08/02/21 SARS-CoV-2 RNA (RT-PCR) Not detected (NOT DETECTED) 05/28/21 08:51 05/28/21 Nasal/Oral Coronavirus 2019 PCR Not detected 04/07/21 16:25 04/07/21 Discharge Plan Discharge Patient Disposition: Admitted As Inpatient Clinical Impression: Chronic bronchitis Qualifiers: Chronic bronchitis type: simple Qualified Code(s): J41.0 - Simple chronic bronchitis Respiratory failure Qualifiers: Chronicity: acute Respiratory failure complication: hypoxia Qualified Code(s): J96.01 - Acute respiratory failure with hypoxia Condition: Serious Coding Level of Care Code ED Compliance Examiner for Sheila Meraz
--- NOTE | 2021-08-02 06:25 | CTR_ITS ---
PROCEDURE INFORMATION: Exam: CTA Chest With Contrast Exam date and time: 08/02/2021 6:25 AM Age: 40 years old Clinical indication: Shortness of breath; Additional info: SOB TECHNIQUE: Imaging protocol: Computed tomographic angiography of the chest with contrast. 3D rendering (Not supervised by radiologist): MIP and/or 3D reconstructed images were created by the technologist. Radiation optimization: All CT scans at this facility use at least one of these dose optimization techniques: automated exposure control; mA and/or kV adjustment per patient size (includes targeted exams where dose is matched to clinical indication); or iterative reconstruction. Contrast material: OMNIPAQUE 350; Contrast volume: 83 ml; Contrast route: INTRAVENOUS (IV); COMPARISON: CR (CHEST, ) 08/02/2021 4:05 AM RADIATION DOSE METRICS: Total DLP (mGy-cm): 1047.56 FINDINGS: Pulmonary arteries: No pulmonary embolism. Aorta: No aortic dissection. Lungs: There is left lower lobe atelectasis. Pleural spaces: Unremarkable. No pneumothorax. No pleural effusion. Heart: Unremarkable. No cardiomegaly. No pericardial effusion. Lymph nodes: Multiple nonspecific mediastinal lymph nodes, likely reactive. Bones/joints: Unremarkable. No acute fracture. Soft tissues: Unremarkable. Other findings: Examination limited by body habitus. CT/CT angio chest PE protcl [id number] IMPRESSION: 1. No pulmonary embolism. 2. Examination limited by body habitus. 3. No aortic dissection. 4. Multiple nonspecific mediastinal lymph nodes, likely reactive. Radiation Dose CTDIVOL = (mGy): DLP = 1047.56 (mGy-cm)
[2021-08-02] MEDS: iohexol 350 mg/mL 100 mL Btl IV (07:20)
--- NOTE | 2021-08-02 08:44 | PM.HP ---
Providers/Chief Complaint Admitting Physician: Tata Rhodes MD Primary Care Provider: Marcus Wills MD Chief Complaint: SOB History of Present Illness 40-year-old lady with history of recurrent bronchitis (COPD per records), at home using an inhaler and nebulizer, states started feeling unwell since last Tuesday, with progressive cough, dyspnea, yesterday had episode of fever, also has been having headache, nausea, vomiting, diarrhea, poor appetite. Reports she was with her children, although they have not been ill, although states that was exposed to her nephew who was thought to perhaps have had RSV or jkeh-fjbi-azo-mouth disease, although says that was seen and tested and those were ruled out. In ER saturation down to 80%. Requiring 3 L nasal cannula. Not normally using supplemental oxygen. Rapid COVID-19 negative. Completed mRNA vaccination series in January/February. Review of Systems Const: Reports: fever(s), chills, body aches and malaise Eyes: Denies: change in vision or eye redness ENMT: Denies: throat pain, oral sores or ear or mastoid pain Card: Denies: chest pain, edema, pre-syncope or dyspnea on exertion Resp: Reports: dyspnea, productive cough (minimal, clear secretions) and non-productive cough; Denies: change in phlegm color or hemoptysis GI: Reports: nausea, vomiting and diarrhea; Denies: abdominal pain, constipation, hematochezia or melena : Denies: flank pain, urinary frequency or hematuria Musc: Denies: back pain, joint swelling or joint redness Skin/Breast: Denies: rash, sores or new lesions Neuro: Denies: headache(s), numbness in extremities, weakness in extremities, dizziness, confusion or seizure-like activity Endo: Denies: polyuria or polydipsia Karan/Lymph: Denies: easy bleeding or purpura All/Imm: Denies: urticaria, throat swelling or tongue swelling Medications/Allergies Home Medications Medication Instructions Recorded Confirmed Last Taken Type albuterol sulfate 90 mcg/actuation 2 puff INHALATION Q6H PRN 12/10/19 07/24/21 04/01/21 History aerosol inhaler sumatriptan succinate 100 mg tablet 100 mg PO Q2H PRN #9 tab 12/24/20 07/24/21 03/26/21 Rx metoprolol succinate 50 mg 50 mg PO DAILY #30 tab 01/20/21 07/24/21 06/21/21 Rx tablet,extended release 24 hr albuterol sulfate 2.5 mg INHALATION Q4H PRN 01/21/21 07/24/21 03/11/21 History losartan 50 mg-hydrochlorothiazide 1.5 tab PO DAILY #45 tab 01/26/21 07/24/21 06/21/21 Rx 12.5 mg tablet umeclidinium 62.5 mcg-vilanterol 1 inh INHALATION DAILY #60 ea 02/26/21 07/24/21 06/21/21 Rx 25 mcg/actuation powdr for inhalation pravastatin 10 mg tablet 10 mg PO DAILY #30 tab 03/19/21 07/24/21 06/20/21 Rx erenumab-aooe 140 mg/mL See Rx Instructions .ROUTE 03/25/21 07/24/21 03/24/21 Rx subcutaneous auto-injector .COMPLEX #1 ml pantoprazole 40 mg tablet,delayed 40 mg PO DAILY 06/08/21 07/24/21 06/21/21 History release aripiprazole 5 mg tablet 5 mg PO DAILY #30 tab 06/26/21 07/24/21 Unknown Rx lorazepam 1 mg tablet 1 mg PO BID PRN #60 tab 06/26/21 07/24/21 Unknown Rx venlafaxine 75 mg capsule,extended 225 mg PO DAILY 30 Days #90 cap 06/26/21 07/24/21 Unknown Rx release 24 hr hydroxyzine HCl 50 mg tablet 50 mg PO BEDTIME PRN #30 tab 07/24/21 07/24/21 Unknown Rx pramipexole 0.25 mg tablet 0.25 mg PO .HS #30 tab 07/24/21 07/24/21 Unknown Rx Allergies Allergy/AdvReac Type Severity Reaction Status Date / Time aspirin Allergy Severe ADR-Vomitin Verified 07/01/21 11:29 g lamotrigine [From Lamictal] Allergy Severe ALGY-Hives Verified 07/01/21 11:29 morphine Allergy Severe ALGY-Rash Verified 07/01/21 11:29 walnut Allergy Severe ALGY-Hives Verified 07/01/21 11:29 citalopram AdvReac Severe ADR-Halluci Verified 07/01/21 11:29 nating prednisone AdvReac Severe vomitting Verified 07/01/21 11:29 PFSH Acute PFSH: Medical History Borderline personality disorder Common migraine with intractable migraine History of COPD History of neuropathy History of restless legs syndrome Morbid obesity Nicotine dependence, cigarettes, uncomplicated Post-traumatic stress disorder, chronic Psychiatric care Sleep apnea, unspecified Surgical History History of bladder repair surgery History of endometrial ablation History of hysterectomy History of shoulder surgery History of tubal ligation Family History Brother Diabetes Mother , Acute leukemia at age 42 Cancer Father Cancer Stage IV Kidney Cancer Grandmother Diabetes maternal Grandfather Stroke maternal Social History Quit status (tobacco): has tried quititng Number of times tried to quit tobacco: 6 Second hand smoke exposure: Yes Smoking risk assessment/counseling performed?: Yes Alcohol intake: current Alcohol intake frequency: holidays/special occasions only Alcohol type: wine and hard liquor Counseling given: No Lives independently: Yes Household members: children 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, 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 Pets and animals: Yes Pets & animals: cat(s) and dog(s) Current gender identity: Female Carolee/Yarsani: Wicca Agree to transfusion: Yes Female Reproductive History: Date of last menstrual period: 08/28/18 Para: 3 Spontaneous abortions: No Vitals/I&O/Wt Last Vital Signs Temp 99.1 F 08/02/21 08:37 Pulse 95 08/02/21 08:37 Resp 17 08/02/21 08:37 BP 156/93 08/02/21 08:37 Pulse Ox 94 08/02/21 08:37 Weight last 48 hrs Weight 177.355 kg Physical Exam Const: COMMON NORMALS: no acute distress, patient oriented x3 and alert NUTRITIONAL APPEARANCE: obese morbidly obese ORIENTATION/CONSCIOUSNESS: Yes awake HENMT: COMMON NORMALS: oropharynx normal Neck/C-Spine: COMMON NORMALS: no JVD Resp: COMMON NORMALS: normal respiratory effort AUSCULTATION: wheezes and diminished lung sounds OTHER: Inspiration triggers cough Cardio: COMMON NORMALS: no JVD, regular rhythm, S1 normal heart sound present, S2 normal heart sound present and No murmurs present (Cardio) RHYTHM: regular rhythm HEART SOUNDS: S1 normal heart sound present and S2 normal heart sound present GI: COMMON NORMALS: Normal to inspection, nondistended, normoactive bowel sounds present, Soft to palpation and non-tender PALPATION: Yes Soft to palpation Extremity: COMMON NORMALS: no joint enlargement and no pedal edema Neuro: COMMON NORMALS: patient oriented x3 and moves all extremities Skin: COMMON NORMALS: no rashes or lesions noted GENERAL SKIN EXAM: no rashes or lesions noted Data : 08/02/21 04:05 08/02/21 04:05 A&P Assessment and plan (1) Respiratory failure: Hypoxic at presentation, PO2 65.4. Saturations down to 82% while in ER, requiring 3 L nasal cannula oxygen. Normally does not require oxygen support. At home did not improve despite Anoro Ellipta, nebulized albuterol. In ER received Decadron with Zofran, due to nausea previously with prednisone, Fabien Appears to have acute viral illness. Discussed with her possibility of COVID-19, even though she has been vaccinated. Follow-up PCR results. Continue to confirm. For now we will start remdesivir. Obtain respiratory viral panel given exposure possibly to another virus from her nephew. Continue oxygen support. Inhalers Antitussives. Self proning if tolerating. CT negative for PE. Status: Acute Qualifiers: Chronicity: acute Respiratory failure complication: hypoxia Qualified Code(s): J96.01 - Acute respiratory failure with hypoxia (2) COPD exacerbation: Is not producing much phlegm, which she does produce is clear. At this time we will hold off on that antibiotic. Continue inhalers. Steroid. Respiratory viral panel as above. Encourage smoking cessation. Status: Acute (3) Acute viral bronchitis: Since Tuesday has been having malaise, mostly dry cough, chills, nausea, vomiting, poor appetite, diarrhea, yesterday had an episode of fever. Additional assessment with respiratory viral panel as above. Pending COVID-19 PCR. Status: Acute (4) Smoking addiction: Discussed with her smoking cessation, encouraged to quit. She states she has not felt like smoking the last several days, perhaps this may help her try to quit again. She has tried in the past although unsuccessfully. Will provide nicotine replacement in case of cravings. Status: Acute Additional A&P Information RLS Borderline personality disorder Recurrent migraine Morbid obesity Sleep apnea Confirm home medication list. Attestations Medical Necessity Statement*: Admission of over 2 midnights is going to be needed for assessment of management of acute hypoxic respiratory failure, COPD exacerbation. Coding Level of Care Code Acute Accounts Receivable Representative for Sheila Meraz Diagnoses Respiratory failure J96.01 Chronicity: acute Respiratory failure complication: hypoxia COPD exacerbation J44.1 Acute viral bronchitis J20.8 Smoking addiction F17.200
[2021-08-02] MEDS: pantoprazole DR 40 mg Tablet PO (09:14)
[2021-08-02] MEDS: enoxaparin 40 mg/0.4 mL Syringe SUBCUT (10:18)
[2021-08-02] MEDS: guaiFENesin-dextromethorphan UDC 10 mL PO (10:18)
[2021-08-02] MEDS: remdesivir 200 MG in sodium chloride 0.9% (100 ml) 60 ML 100 MG IV (10:18)
[2021-08-02 10:40] LABS: Magnesium 1.8 mg/dL (1.7-2.3)
[2021-08-02] MEDS: benzonatate 100 mg Capsule 200 MG PO ×2 (14:54→20:50)
[2021-08-02] MEDS: acetaminophen 325 mg Tablet 650 MG PO (20:50)
--- NOTE | 2021-08-02 23:54 | PC.NURSE ---
This nurse called Dr. Rhodes at 2112 to inform her that the patient did not receive her bag of remdesivir that was hung at 12:35, pt stated she was unhooked to go to the bathroom and did not get hooked back up. Dr. Rhodes advised me to call the pharmacy, I spoke to Ivette in the pharmacy who advised me to go ahead and finish that bag because it is good for 24hrs and she would adjust the times of the remaining bags.
[2021-08-03] VITALS (11 sets, daily range): BP systolic 103–152; BP diastolic 68–91; PULSE 72–100; RESP 16–22; TEMP 36.6–36.9; O2SAT 89–93
[2021-08-03] MEDS: acetaminophen 325 mg Tablet 650 MG PO ×2 (03:23→10:29)
[2021-08-03] MEDS: guaiFENesin-dextromethorphan UDC 10 mL PO ×3 (03:48→17:59)
[2021-08-03] MEDS: dexamethasone 10 mg/mL INJ 3 MG IVP (05:08)
[2021-08-03 06:16] LABS: Basophils % 0.4 %; Eosinophils # 0.1 10^3/uL (0.0-0.8); Eosinophils % 1.1 %; Hematocrit 38.4 % (37.0-47.0); Hemoglobin 12.2 g/dL (11.5-15.3); Lymphocytes # 1.2 10^3/uL (0.8-4.8); Lymphocytes % 14.2 %; Mean Corpuscular HGB Conc 31.8 g/dL (30.0-36.0); Mean Corpuscular Hemoglobin 28.8 pg (28.0-34.0); Mean Corpuscular Volume 90.6 fl (81-99); Mean Platelet Volume 9.6 fL (7.4-10.4); Monocytes # 0.6 10^3/uL (0.2-0.9); Neutrophils # 6.21 10^3/uL (1.8-7.7); Neutrophils % 76.7 %; Nucleated Red Blood Cells % 0 %; Platelet Count 223 10^3/cmm (130-400); Red Blood Count 4.24 10^6/uL (4.1-5.3); White Blood Count 8.1 10^3/uL (4.0-10.0)
[2021-08-03 06:40] LABS: Alanine Aminotransferase 21 U/L (0-33); Albumin Level 3.5 g/dL (3.5-5.2); Alkaline Phosphatase 73 IU/L (35-105); Anion Gap 11.9 (5-19); Aspartate Amino Transferase 14 U/L (0-32); Blood Urea Nitrogen 15 mg/dL (6-20); Calcium 8.7 mg/dL (8.5-10.5); Carbon Dioxide 28 mmol/L (22-29); Chloride 100 mmol/L (98-107); Globulin 3.2 g/dL (1.3-4.6); Glomerular Filtration Rate 109.6 mL/min (90-130); Glucose 124 mg/dL (65-115); Osmolality Calculated 284 mOsm/kg (285-295); Potassium 3.9 mmol/L (3.5-5.1); Sodium 136 mmol/L (136-145); Total Bilirubin 0.4 mg/dL (0.15-1.2); Total Protein 6.7 g/dL (6.6-8.7)
[2021-08-03] MEDS: pantoprazole DR 40 mg Tablet PO (07:45)
[2021-08-03] MEDS: benzonatate 100 mg Capsule 200 MG PO ×3 (07:45→20:57)
[2021-08-03] MEDS: LORazepam 1 mg Tablet PO ×2 (09:14→20:58)
[2021-08-03] MEDS: enoxaparin 40 mg/0.4 mL Syringe SUBCUT (09:14)
[2021-08-03] MEDS: albuterol 8 gm MDI 2 PUFF INHALATION ×2 (10:57→22:35)
--- NOTE | 2021-08-03 12:59 | PM.PN ---
Subjective Subjective: Interval history: She is coughing quite a bit, dry cough. Vitals/I&O/Wt Last Vital Signs Temp 97.9 F 08/03/21 10:56 Pulse 84 08/03/21 10:57 Resp 22 H 08/03/21 10:57 BP 122/83 08/03/21 10:56 Pulse Ox 92 08/03/21 10:57 08/02/21 08/03/21 08/03/21 22:59 06:59 14:59 Intake Total 480 / 540 300 / 840 360 / 360 Balance 480 / 540 300 / 840 360 / 360 Weight last 48 hrs Weight 129.863 kg Weight 177.355 kg Physical Exam Const: COMMON NORMALS: no acute distress, patient oriented x3 and alert NUTRITIONAL APPEARANCE: obese morbidly obese ORIENTATION/CONSCIOUSNESS: Yes awake HENMT: COMMON NORMALS: oropharynx normal Neck/C-Spine: COMMON NORMALS: no JVD Resp: COMMON NORMALS: normal respiratory effort AUSCULTATION: wheezes and diminished lung sounds Cardio: COMMON NORMALS: no JVD, regular rhythm, S1 normal heart sound present, S2 normal heart sound present and No murmurs present (Cardio) RHYTHM: regular rhythm HEART SOUNDS: S1 normal heart sound present and S2 normal heart sound present GI: COMMON NORMALS: Normal to inspection, nondistended, normoactive bowel sounds present, Soft to palpation and non-tender PALPATION: Yes Soft to palpation Extremity: COMMON NORMALS: no joint enlargement and no pedal edema Neuro: COMMON NORMALS: patient oriented x3 and moves all extremities SENSORIUM/ORIENTATION: Yes alert Skin: COMMON NORMALS: no rashes or lesions noted GENERAL SKIN EXAM: no rashes or lesions noted Data : 08/03/21 05:50 08/03/21 05:50 A&P Assessment and plan (1) Respiratory failure: Still 3 L, wheezing, diminished air entry, quite a bit of dry cough. She is on maximum cough suppressants. We will switch her off of dexamethasone to Solu-Medrol 60 mg every 6 hours given persistent symptoms. Continue albuterol. Add scheduled. Add Combivent. Requiring 3 L nasal cannula oxygen. Normally does not require oxygen support. At home did not improve despite Anoro Ellipta, this is not available here. At home also has nebulized albuterol. In ER received Decadron with Zofran, due to nausea previously with prednisone, Fabien Appears to have acute viral illness. Discussed with her possibility of COVID-19, even though she has been vaccinated. Follow-up PCR results. Continue to confirm. For now we will start remdesivir. Obtain respiratory viral panel given exposure possibly to another virus from her nephew. Continue oxygen support. Inhalers Antitussives. Self proning if tolerating. CT negative for PE. Status: Acute Qualifiers: Chronicity: acute Respiratory failure complication: hypoxia Qualified Code(s): J96.01 - Acute respiratory failure with hypoxia (2) COPD exacerbation: As above. Is not producing much phlegm, which she does produce is clear. At this time we will hold off on that antibiotic. Continue inhalers. Steroid. Respiratory viral panel as above. Encourage smoking cessation. Status: Acute (3) Acute viral bronchitis: Since Tuesday has been having malaise, mostly dry cough, chills, nausea, vomiting, poor appetite, diarrhea, yesterday had an episode of fever. Additional assessment with respiratory viral panel as above. Pending COVID-19 PCR. Status: Acute (4) Smoking addiction: Discussed with her smoking cessation, encouraged to quit. She states she has not felt like smoking the last several days, perhaps this may help her try to quit again. She has tried in the past although unsuccessfully. Will provide nicotine replacement in case of cravings. Status: Acute Additional A&P Information RLS Borderline personality disorder Recurrent migraine Morbid obesity Sleep apnea Confirm home medication list. Attestations Medical Necessity Statement*: Continue admission for assessment management of hypoxia, COPD exacerbation. Coding Level of Care Code Acute Functional Support Analyst for Sheila Meraz Diagnoses Respiratory failure J96.01 Chronicity: acute Respiratory failure complication: hypoxia COPD exacerbation J44.1 Acute viral bronchitis J20.8 Smoking addiction F17.200
[2021-08-03 13:53] LABS: Quest SARS-CoV-2 RNA NOT DETECTED (NOT DETECTED)
[2021-08-03] MEDS: gabapentin 100 mg Capsule PO ×2 (14:42→20:57)
--- NOTE | 2021-08-03 16:54 | PC.RESP ---
SMOKING CESSATION AND PULMONARY REHAB INFORMATION SENT TO PATIENT.
--- NOTE | 2021-08-03 19:04 | PC.NURSE ---
Report to Praneeth MARCOS at this time.
[2021-08-03] MEDS: pramipexole 0.25 mg Tablet PO (20:58)
[2021-08-04] VITALS (10 sets, daily range): BP systolic 131–137; BP diastolic 69–87; PULSE 68–118; RESP 17–19; TEMP 36.4–36.8; O2SAT 85–94
[2021-08-04 06:07] LABS: Basophils % 0.1 %; Hematocrit 40.4 % (37.0-47.0); Hemoglobin 12.6 g/dL (11.5-15.3); Lymphocytes # 0.9 10^3/uL (0.8-4.8); Lymphocytes % 10.4 %; Mean Corpuscular HGB Conc 31.2 g/dL (30.0-36.0); Mean Corpuscular Hemoglobin 28.4 pg (28.0-34.0); Mean Platelet Volume 9.8 fL (7.4-10.4); Monocytes # 0.2 10^3/uL (0.2-0.9); Monocytes % 2.6 %; Neutrophils # 7.32 10^3/uL (1.8-7.7); Neutrophils % 85.8 %; Nucleated Red Blood Cells % 0 %; Platelet Count 267 10^3/cmm (130-400); Red Blood Count 4.44 10^6/uL (4.1-5.3); Red Cell Distribution Width 14.6 % (12.1-15.1); White Blood Count 8.5 10^3/uL (4.0-10.0)
[2021-08-04 06:33] LABS: Alanine Aminotransferase 25 U/L (0-33); Albumin Level 3.8 g/dL (3.5-5.2); Alkaline Phosphatase 75 IU/L (35-105); Anion Gap 11.1 (5-19); Aspartate Amino Transferase 13 U/L (0-32); Blood Urea Nitrogen 14 mg/dL (6-20); Calcium 9.1 mg/dL (8.5-10.5); Carbon Dioxide 29 mmol/L (22-29); Chloride 103 mmol/L (98-107); Globulin 3.2 g/dL (1.3-4.6); Glomerular Filtration Rate 135.3 mL/min (90-130); Glucose 180 mg/dL (65-115); Osmolality Calculated 293 mOsm/kg (285-295); Potassium 4.1 mmol/L (3.5-5.1); Sodium 139 mmol/L (136-145); Total Bilirubin 0.2 mg/dL (0.15-1.2)
[2021-08-04] MEDS: pantoprazole DR 40 mg Tablet PO (08:37)
[2021-08-04] MEDS: gabapentin 100 mg Capsule PO ×2 (08:37→14:31)
[2021-08-04] MEDS: ARIPiprazole 10 mg Tablet 5 MG PO (08:37)
[2021-08-04] MEDS: venlafaxine ER (24HR) 75 mg Capsule 225 MG PO (08:37)
[2021-08-04] MEDS: benzonatate 100 mg Capsule 200 MG PO ×2 (08:37→14:31)
[2021-08-04] MEDS: atorvastatin 40 mg Tablet 20 MG PO (08:38)
[2021-08-04] MEDS: LORazepam 1 mg Tablet PO (08:38)
[2021-08-04] MEDS: enoxaparin 40 mg/0.4 mL Syringe SUBCUT (08:39)
--- NOTE | 2021-08-04 11:04 | PC.CHAP ---
Pastoral Care Encounter/Spiritual Assessment Type of Contact [] Declined orientation and mobility specialist visit [] Patient/Family/Request visit [] Outpatient visit [] Follow-up visit [] Physician referral [] Code/Alert [x] Routine visit [] Staff referral [] Actively dying [] Patient sleeping [] Family support [] [x] Out of room [] Palliative care [] [] Receiving care in room [] Pre-surgical visit [] Trauma [] Long length of stay [] ICU visit [] Other: Relational/Emotional Strength [] Patient feels connected with others/family/visitors/staff [] Distress [] Loneliness/isolation [] Abandonment Spirituality of Patient [] Person of Carolee [] Attends Rastafari of their Carolee [] Believes in Prayer [] Reads Bible or Alevism materials [] There are Spiritual issues to be addressed Telecommunications Support Interventions [] Prayer [] Active listening [] Non-anxious presence [] Spiritual/emotional support [] Crisis/trauma care [] Spiritual counseling [] Bereavement support [] Provided bereavement packet [] Provided Bible/devotional materials [] Provided toy/stuffed animal, coloring book to patient or family member [] Provided Communion [] Anointing/[place] [] Salvation [] Completed spiritual assessment [] Other: Impact on Illness or Injury [] Angry [] Fearful [] Anxious [] Often cries [] Exhaustion [] Unable to work [] Unable to attend alevism [] Unable to walk/stand [] Unable to read [] Unable to drive [] Unable to eat/drink [] Unable to sleep [] Unable to be with family [] Patient intubated [] Other: Summary Time spent with patient
[2021-08-04] MEDS: guaiFENesin-dextromethorphan UDC 10 mL PO (11:11)
--- NOTE | 2021-08-04 14:05 | P.DS_ITS ---
Discharge Providers Date of Admission: 08/02/21 06:24 Date of Discharge: August 04, 2021 Attending Provider at Admission: Tata Rhodes MD Attending Provider at Discharge: Phong Herring Primary Care Provider: Marcus Wills MD Diagnoses at Discharge Discharge Diagnosis (1) Respiratory failure: Status: Acute Qualifiers: Chronicity: acute Respiratory failure complication: hypoxia Qualified Code(s): J96.01 - Acute respiratory failure with hypoxia (2) COPD exacerbation: Status: Acute (3) Acute viral bronchitis: Status: Acute (4) Smoking addiction: Status: Acute Reason for Visit Reason for Visit: SOB Hospital Course Hospital Course Pleasant 40-year-old lady with history of chronic bronchitis/COPD, smoking addiction, morbid obesity, sleep apnea, other chronic conditions was admitted for assessment management due to shortness of breath which has been worsening, not responsive to her home inhaler and nebulizer, worsening since Tuesday of last week, with progressive cough with clear sputum, dyspnea, at presentation with new hypoxic respiratory failure requiring 3 L of oxygen, not normally requiring supplemental oxygen. CTA chest without pulmonary embolism, likely reactive mediastinal lymph nodes, no consolidation to suggest acute bacterial pneumonia. Was treated for hypoxic respite failure secondary to COPD exacerbation likely secondary to viral origin (at least initially) with IV steroid, LAMA/LABA inhaler, albuterol as needed, antitussives, oxygen support, assess for COVID-19 by PCR which was negative, with notable bronchospasm, wheezing, diminished air entry, so IV steroids were escalated to Solu-Medrol 60 mg every 6, today doing significantly better, with much better air entry, resolution of wheezing, although still needing some oxygen, this will be more closely assessed by home oxygen evaluation. Today she reports feeling better, took a shower, feels ready to cautiously return home to continue steroid taper with Medrol Dosepak. She also reports that now sputum is turning a bit yellow, so we will give her a short course of 5-day course of doxycycline to complete as well. She is asked to quit smoking. She is asked to follow-up with her primary provider. Physical Exam Const: COMMON NORMALS: no acute distress, patient oriented x3 and alert NUTRITIONAL APPEARANCE: obese morbidly obese ORIENTATION/CONSCIOUSNESS: Yes awake HENMT: COMMON NORMALS: oropharynx normal Neck/C-Spine: COMMON NORMALS: no JVD Resp: COMMON NORMALS: normal respiratory effort AUSCULTATION: no wheezes and diminished lung sounds (Better air entry) Cardio: COMMON NORMALS: no JVD, regular rhythm, S1 normal heart sound present, S2 normal heart sound present and No murmurs present (Cardio) RHYTHM: regular rhythm HEART SOUNDS: S1 normal heart sound present and S2 normal heart sound present GI: COMMON NORMALS: Normal to inspection, nondistended, normoactive bowel sounds present, Soft to palpation and non-tender PALPATION: Yes Soft to palpation Extremity: COMMON NORMALS: no joint enlargement and no pedal edema Neuro: COMMON NORMALS: patient oriented x3 and moves all extremities SENSORIUM/ORIENTATION: Yes alert Skin: COMMON NORMALS: no rashes or lesions noted GENERAL SKIN EXAM: no rashes or lesions noted Discharge Data Data Completed and Pending: Completed Studies During Hospitalization Category Date Time Status CT angio chest PE protcl 05691 Urge nt Cat Scan 08/02/21 06:25 Completed XR chest 1V chacorta ble [id number] Stat Exams 08/02/21 03:22 Completed Pending at discharge Category Date Time Status Complete Blood Co unt w/Auto AM LABS Lab 08/05/21 04:00 Ordered Comprehensive Met abolic Panel AM LA BS Lab 08/05/21 04:00 Ordered Respiratory Viral Panel PCR Routine Lab 08/02/21 09:05 Ordered Labs from last 24 hours 08/04/21 08/04/21 05:08 05:08 WBC 8.5 RBC 4.44 Hgb 12.6 Hct 40.4 MCV 91.0 MCH 28.4 MCHC 31.2 RDW 14.6 Plt Count 267 MPV 9.8 Neut % (Auto) 85.8 Lymph % (Auto) 10.4 Sterling % (Auto) 2.6 Eos % (Auto) 0.0 Baso % (Auto) 0.1 Neut # (Auto) 7.32 Lymph # (Auto) 0.9 [place] # (Auto) 0.2 Eos # (Auto) 0.0 Baso # (Auto) 0.0 Nucleated RBC % (a uto) 0 Nucleated RBCs # 0.0 Sodium 139 Potassium 4.1 Chloride 103 Carbon Dioxide 29 Anion Gap 11.1 BUN 14 Creatinine 0.5 GFR Calculation 135.3 H Glucose 180 H Calculated Osmolal ity 293 Calcium 9.1 Total Bilirubin 0.2 AST 13 ALT 25 Alkaline Phosphata se 75 Total Protein 7.0 Albumin 3.8 Globulin 3.2 Vitals: Last Vital Signs Temp 98.2 F 08/04/21 12:00 Pulse 118 H 08/04/21 12:00 Resp 19 H 08/04/21 12:00 BP 134/81 08/04/21 12:00 Pulse Ox 87 L 08/04/21 13:29 Discharge Plan Discharge Patient Disposition: Home Condition: Stable Prescriptions: New benzonatate 100 mg Capsule 200 mg PO TID Qty: 90 RF: 0 doxycycline hyclate 100 mg capsule 100 mg PO BID 5 Days Qty: 10 RF: 0 dextromethorphan-guaifenesin 10-100 mg/5 mL Syrup 10 ml PO Q4H PRN (Reason: Cough) Qty: 237 RF: 1 gabapentin 100 mg Capsule 100 mg PO TID Qty: 45 RF: 0 methylprednisolone [Methylpred DP] 4 mg tablets,dose pack See Rx Instructions .ROUTE .COMPLEX Qty: 21 RF: 0 Continued pantoprazole 40 mg tablet,delayed release (DR/EC) 40 mg PO DAILY RF: 0 pravastatin 10 mg tablet 10 mg PO DAILY Qty: 30 RF: 3 venlafaxine 75 mg capsule,extended release 24hr 225 mg PO DAILY 30 Days Qty: 90 RF: 2 lorazepam [Ativan] 1 mg tablet 1 mg PO BID PRN (Reason: anxiety) Qty: 60 RF: 0 aripiprazole [Abilify] 5 mg tablet 5 mg PO DAILY Qty: 30 RF: 2 hydroxyzine HCl 50 mg tablet 50 mg PO BEDTIME PRN (Reason: sleep) Qty: 30 RF: 2 albuterol sulfate [ProAir HFA] 90 mcg/actuation HFA aerosol inhaler 2 puff INHALATION Q6H PRN (Reason: shortness of breath) RF: 0 sumatriptan succinate [Imitrex] 100 mg tablet 100 mg PO Q2H PRN (Reason: migraine headache) Qty: 9 RF: 6 albuterol sulfate 2.5 mg /3 mL (0.083 %) solution for nebulization 2.5 mg inhalation Q4H PRN (Reason: sob) RF: 0 metoprolol succinate 50 mg tablet extended release 24 hr 50 mg PO DAILY Qty: 30 RF: 5 Anoro Ellipta 62.5-25 mcg/actuation blister with device 1 inh inhalation DAILY Qty: 60 RF: 3 Aimovig Autoinjector 140 mg/mL auto-injector See Rx Instructions .ROUTE .COMPLEX Qty: 1 RF: 3 Mirapex 0.25 mg tablet 0.25 mg PO BEDTIME RF: 0 Held losartan-hydrochlorothiazide 50-12.5 mg tablet 1.5 tab PO DAILY Qty: 45 RF: 5 Hold Instructions: Resume on 08/10/21. Discharge Orders: Discharge Order (Routine); Ordered 08/04/21 Ordered By: Phong Herring Other Ambulatory Orders: DME: Oxygen (Order) Location: None Selected Ordered By: Phong Herring Referrals: Marcus Wills MD [Primary Care Provider] - 4-7 days Discharge Diet: Advance as tolerated and Low Cholesterol Discharge Activity: Oxygen as instructed Patient Instructions: How to Stop Smoking (GEN), Cigarette Smoking and Your Health (GEN), Using Oxygen at Home (GEN), COPD (Chronic Obstructive Pulmonary Disease) (GEN), Chronic Bronchitis (GEN), Hypoxia (GEN) Activity Restrictions/Additional Instructions: Please resume nebulization at home. Complete steroid and antibiotic course. Follow-up with your primary doctor for reassessment of resolution of symptoms. Use oxygen as recommended if found needed on home oxygen evaluation. Please quit smoking due to multiple health risk effects including progression of lung disease, cardiovascular disease with risk of heart attack, stroke, risk of various cancers. Please never smoke anywhere near oxygen due to severe fire hazard. Please follow-up with your primary doctor with regards to other chronic problems including sleep apnea. Discharge Attestations Time Spent in Discharge Care*: greater than 30 min Status at Discharge: Cognitive status at discharge: cognitively intact , Behavioral status at discharge: cooperative , Quality Metrics Clinical Quality Measures During this hospital stay, did patient experience: None Coding Level of Care Code Acute Chg FW DC note Diagnoses Respiratory failure J96.01 Chronicity: acute Respiratory failure complication: hypoxia COPD exacerbation J44.1 Acute viral bronchitis J20.8 Smoking addiction F17.200
--- NOTE | 2021-08-04 16:00 | PC.NURSE ---
IV removed intact. Patient tolerated well. Patient is A&Ox3. Respirations even and non-labored on 3 liters via NC. Reviewed patient discharge with patient. Patient verbalized understanding of discharge instructions including how to take the medications delivered to her by [facility] and of her follow up appointments. HOME brought patient her oxygen to use at her home. Patient wheel chaired to her car at this time.
--- NOTE | 2021-08-06 12:41 | PC.SOCIAL ---
discharge follow up call made, spoke with patient. she reports she is feeling better, having a hard time getting adjusted to the O2. patient is taking all new medications as prescribed. patient reports getting short of breath with exercise and patient noted to have a cough. patient is aware of follow up appointment with dr. brandt on 08-10. patient is also aware of holding losartan-hctz until 08-10. patient hasn't smoked since before coming into the hospital. no concerns voiced.
== END 2021-08-04 16:00 | disposition home or self-care (01) | DRG 189 ==
LOC: ER 06:22 → MEDSURG 08:13
PROVIDERS: Admitting Provider Student in an Organized Health Care Education/Training Program; Emergency Provider Emergency Medicine; PCP Family Medicine; Visit Provider Internal Medicine
DX: J96.01 Acute respiratory failure with hypoxia (principal); J44.0 Chronic obstructive pulmonary disease with (acute) lower respiratory infection; J44.1 Chronic obstructive pulmonary disease with (acute) exacerbation; I10 Essential (primary) hypertension; F60.3 Borderline personality disorder; G62.9 Polyneuropathy, unspecified; G25.81 Restless legs syndrome; E66.01 Morbid (severe) obesity due to excess calories; F17.210 Nicotine dependence, cigarettes, uncomplicated; F43.12 Post-traumatic stress disorder, chronic; G47.30 Sleep apnea, unspecified; Z79.51 Long term (current) use of inhaled steroids
CPT/HCPCS: 36415; 36600; 71045; 71275; 80053; 82803; 83605; 83735; 83880; 84484; 85025; 85378; 86140; 87426; 87635; 93005; 94640; 94664; 96372; 96374; 96375; 99285; J1100; J1650; J2060; J2405; J2930; J3535; Q9967

== ENCOUNTER 2021-08-18 21:01 | Emergency (ER) | payer MEDICARE, MEDICAID, SELFPAY ==
[2020-12-24 09:14] VITALS: BP 138/92; BMI 60.3
[2021-08-18 21:31] VITALS: BP 125/87; PULSE 90; RESP 24; TEMP 36.9; O2SAT 100; BMI 58.1
--- NOTE | 2021-08-18 23:36 | ED_ITS ---
HPI - Headache General: Chief Complaint: Headache Stated Complaint: N\V Migraine HeadAche Time Seen by Provider: 08/18/21 23:36 History of Present Illness: HPI Narrative: 40-year-old female comes in today with complaints of migraine headache. Patient has a history of migraines and this is similar to her prior episodes. Patient had tried Imitrex and Tylenol with no relief. Patient appears well. Patient appears in mild to moderate pain. Patient has a history of morbid obesity, hypertension, COPD, borderline personality disorder, and hypoxia. Review of Systems General: Reports: 10 or more systems reviewed and unremarkable except in HPI and below Neuro: Reports: headache(s) PFSH ED PFSH: Medical History Borderline personality disorder Common migraine with intractable migraine History of COPD History of neuropathy History of restless legs syndrome Morbid obesity Nicotine dependence, cigarettes, uncomplicated Post-traumatic stress disorder, chronic Psychiatric care Sleep apnea, unspecified Surgical History History of bladder repair surgery History of endometrial ablation History of hysterectomy History of shoulder surgery History of tubal ligation Family History Brother Diabetes Mother , Acute leukemia at age 42 Cancer Father Cancer Stage IV Kidney Cancer Grandmother Diabetes maternal Grandfather Stroke maternal Social History Quit status (tobacco): has tried quititng Number of times tried to quit tobacco: 6 Second hand smoke exposure: Yes Smoking risk assessment/counseling performed?: Yes Alcohol intake: current Alcohol intake frequency: holidays/special occasions only Alcohol type: wine and hard liquor Counseling given: No Lives independently: Yes Household members: children 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, 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 Pets and animals: Yes Pets & animals: cat(s) and dog(s) Current gender identity: Female Carolee/Uatsdin: Wicca Agree to transfusion: Yes Female Reproductive History: Date of last menstrual period: 08/28/18 Para: 3 Spontaneous abortions: No Physical Exam Const: COMMON NORMALS: no acute distress and patient oriented x3 GENERAL APPEARANCE: cooperative HENMT: COMMON NORMALS: normocephalic and Normal external nose present HEAD & SCALP: normal to inspection and normocephalic NOSE: Normal external nose present MOUTH: Normal oral and palatal mucosa present Eye: GENERAL EYE: appearance normal, both eyes and all related structures Neck/C-Spine: COMMON NORMALS: full ROM Chest: COMMONS NORMALS: normal inspection of the chest Resp: COMMON NORMALS: normal respiratory effort EFFORT & INSPECTION: Yes able to speak in complete sentences Cardio: COMMON NORMALS: regular rate and regular rhythm RATE: regular rate RHYTHM: regular rhythm GI: COMMON NORMALS: non-tender Extremity: COMMON NORMALS: normal to inspection Neuro: COMMON NORMALS: patient oriented x3 and moves all extremities Psych: COMMON NORMALS: mental status grossly normal and cooperative Skin: COMMON NORMALS: no rashes or lesions noted GENERAL SKIN EXAM: no rashes or lesions noted Course ED course: 1255, patient has much improvement in her headache and wishes to go home at this time. Patient reports migraine went from a 8 to a 5 on the Likert 10 scale. Vital Signs: Vital signs: Vital Signs Temperature 98.4 F 08/18/21 21:31 Pulse Rate 90 08/18/21 21:31 Respiratory Rate 24 H 08/18/21 21:31 Blood Pressure 125/87 08/18/21 21:31 Pulse Oximetry 100 08/18/21 21:31 MDM - Headache MDM Narrative: Medical decision making narrative: 40-year-old female comes in today with complaints of migraine headache. Patient reports this headache is very similar to her previous headaches. Patient had tried Imitrex and Tylenol at home without any relief. Patient came into the ER for her headache cocktail. On exam we note no focal neural deficits. Skin is warm and dry. Vital signs normal. Differential diagnosis includes tension headache, migraine headache, anxiety. Patient was treated for migraine headache with Reglan 10 mg IV push, 15 mg ketorolac IV push, 25 mg diphenhydramine, and 6 mg of dexamethasone IV push. Patient was monitored and released to home after cessation of headache. Discharge Plan Discharge Patient Disposition: Home Clinical Impression: Migraine Qualifiers: Migraine type: unspecified Status migrainosus presence: without status migrainosus Intractability: not intractable Qualified Code(s): G43.909 - Migraine, unspecified, not intractable, without status migrainosus Condition: Stable Prescriptions: No Action pantoprazole 40 mg tablet,delayed release (DR/EC) 40 mg PO DAILY RF: 0 venlafaxine 75 mg capsule,extended release 24hr 225 mg PO DAILY 30 Days Qty: 90 RF: 2 lorazepam [Ativan] 1 mg tablet 1 mg PO BID PRN (Reason: anxiety) Qty: 60 RF: 0 aripiprazole [Abilify] 5 mg tablet 5 mg PO DAILY Qty: 30 RF: 2 hydroxyzine HCl 50 mg tablet 50 mg PO BEDTIME PRN (Reason: sleep) Qty: 30 RF: 2 albuterol sulfate [ProAir HFA] 90 mcg/actuation HFA aerosol inhaler 2 puff INHALATION Q6H PRN (Reason: shortness of breath) RF: 0 sumatriptan succinate [Imitrex] 100 mg tablet 100 mg PO Q2H PRN (Reason: migraine headache) Qty: 9 RF: 6 albuterol sulfate 2.5 mg /3 mL (0.083 %) solution for nebulization 2.5 mg inhalation Q4H PRN (Reason: sob) RF: 0 Anoro Ellipta 62.5-25 mcg/actuation blister with device 1 inh inhalation DAILY Qty: 60 RF: 3 Aimovig Autoinjector 140 mg/mL auto-injector See Rx Instructions .ROUTE .COMPLEX Qty: 1 RF: 5 metoprolol succinate 50 mg tablet extended release 24 hr 50 mg PO DAILY Qty: 30 RF: 5 pravastatin 10 mg tablet 10 mg PO DAILY Qty: 30 RF: 3 losartan-hydrochlorothiazide 50-12.5 mg tablet 1.5 tab PO DAILY Qty: 45 RF: 5 Hold Instructions: Resume on 08/10/21. Mirapex 0.25 mg tablet 0.25 mg PO BEDTIME RF: 0 benzonatate 100 mg Capsule 200 mg PO TID Qty: 90 RF: 0 dextromethorphan-guaifenesin 10-100 mg/5 mL Syrup 10 ml PO Q4H PRN (Reason: Cough) Qty: 237 RF: 1 gabapentin 100 mg Capsule 100 mg PO TID Qty: 45 RF: 0 Methylpred DP 4 mg tablets,dose pack See Rx Instructions .ROUTE .COMPLEX Qty: 21 RF: 0 Discharge Orders: Discharge ED (Routine); Ordered 08/19/21 Ordered By: Agustin Silva Referrals: Marcus Wills MD [Primary Care Provider] - Discharge Diet: Usual diet Discharge Activity: Increase activity as tolerated Patient Instructions: Migraine Headache (ED), Opioid Safety Activity Restrictions/Additional Instructions: Home and rest. Continue with routine medications. Drink plenty of water. Follow-up with primary care for other instructions. Return to the ER for new concerns. Coding Level of Care Code ED Picker Machine Operator for Chg Fwd Exam Comprehensive
[2021-08-19] MEDS: sodium chloride 0.9% 500 ML 999 ML IV (00:39)
[2021-08-19] MEDS: ketorolac 30 mg/mL INJ 15 MG IVP (00:40)
[2021-08-19] MEDS: metoclopramide 5 mg/mL SDV 2 mL 10 MG IVP (00:40)
[2021-08-19] MEDS: diphenhydrAMINE 50 mg/mL SDV 1mL 25 MG IVP (00:40)
[2021-08-19] MEDS: dexamethasone 10 mg/mL INJ 6 MG IVP (00:40)
[2021-08-19 01:13] VITALS: BP 119/78; PULSE 90; RESP 20; O2SAT 98
== END 2021-08-19 01:10 | disposition home or self-care (01) ==
PROVIDERS: Emergency Provider Nurse Practitioner Family; PCP Family Medicine
DX: G43.909 Migraine, unspecified, not intractable, without status migrainosus (principal); F17.200 Nicotine dependence, unspecified, uncomplicated
CPT/HCPCS: 96374; 96375; 99283; J1100; J1200; J1885; J2765; J7040

== ENCOUNTER → 2021-09-23 07:35 | Outpatient (BNVA) | payer MEDICARE, MEDICAID, SELFPAY ==
[2020-12-24 09:14] VITALS: BP 138/92; BMI 60.3
== END ==
PROVIDERS: PCP Family Medicine; Visit Provider Nurse Practitioner
DX: F43.12 Post-traumatic stress disorder, chronic (principal); F60.3 Borderline personality disorder; G47.30 Sleep apnea, unspecified; F17.210 Nicotine dependence, cigarettes, uncomplicated
CPT/HCPCS: 99214

== ENCOUNTER → 2021-10-02 11:31 | Outpatient (BNVA) | payer MEDICARE, MEDICAID, SELFPAY ==
[2020-12-24 09:14] VITALS: BP 138/92; BMI 60.3
== END ==
PROVIDERS: PCP Family Medicine; Visit Provider Orthopaedic Surgery
DX: Z20.822 Contact with and (suspected) exposure to COVID-19 (principal); M17.12 Unilateral primary osteoarthritis, left knee
CPT/HCPCS: 87635

== ENCOUNTER 2021-10-08 06:00 | Day surgery (SDC) | payer MEDICARE, MEDICAID, SELFPAY ==
[2020-12-24 09:14] VITALS: BP 138/92; BMI 60.3
[2021-10-07 12:44] VITALS: BMI 58.5
[2021-10-08] VITALS (10 sets, daily range): BP systolic 84–154; BP diastolic 53–82; PULSE 82–106; RESP 17–22; TEMP 36.1–36.6; O2SAT 80–95
[2021-10-08] MEDS: sodium chloride 0.9% 1,000 ML 30 ML IV (06:35)
--- NOTE | 2021-10-08 07:00 | W.PM.OPSUD ---
Surgery/Procedure H&P Update DATE OF PROCEDURE: October 08, 2021 DATE H&P PERFORMED: 09/15/21 PREOP DIAGNOSIS: Knee Left medial meniscal tear PLANNED PROCEDURE: Operation Date: 10/08/21 07:00 Proposed Procedures p Knee Arthroscopy 72944 M17.12(Left) - Sukhwinder Steen MD
--- NOTE | 2021-10-08 07:01 | ANES.PREANE2 ---
Pre-Anesthetic Assessment Pre-Anesthetic Assessment: Height/Weight: Height 1.73 m Weight 174.633 kg Temp Pulse Resp BP Pulse Ox 97.0 F L 105 H 20 H 154/82 95 10/08/21 06:21 10/08/21 06:21 10/08/21 06:21 10/08/21 06:21 10/08/21 06:21 Preop Diagnosis: Knee Left medial meniscal tear Proposed Procedure: Operation Date: 10/08/21 07:00 Proposed Procedures p Knee Arthroscopy 50666 M17.12(Left) - Sukhwinder Steen MD Was Beta Fabby taken within 24 hours: N/A Was Clonidine taken within 24 hours: N/A Last intake: Intake Last Liquid Date 10/07/21 Last Liquid Time 23:00 Last Solid Date 10/07/21 Last Solid Time 20:30 Social: Social History: Tobacco and No alcohol Exam: Pre-Anes Outpt Exam: alert, oriented x 3, clear to auscultation bilaterally and regular rate & rhythm Airway: Submandibular: WNL Cervical ROM: WNL MP: 2 Dentition: False Pulmonary: Pulmonary: COPD and Sleep apnea CV/HEM: CV/HEM: HTN Metabolic: Metabolic: Hyperlipidemia and Morbid obesity Neuropsych: Neuropsych: Anxiety and Depression Anesthetic Plan: ASA status: 3 Anesthesia: General Risk of > 500 ml blood loss (7ml/kg in children): No Meds/Allergies Current Medications: Current Medications Generic Name Dose Route Start Last Admin Trade Name Freq PRN Reason Stop Dose Admin Sodium Chloride 1,000 mls @ 30 ml s/hr 10/08/21 06:15 10/08/21 06:35 Sodium Chloride 0.9% IV 10/09/21 06:14 30 mls/hr .Q24H JUD Administration PFSH Anesthesia PFSH: Medical History Borderline personality disorder Chronic bronchitis Common migraine with intractable migraine History of COPD History of neuropathy History of restless legs syndrome Morbid obesity Nicotine dependence, cigarettes, uncomplicated Post-traumatic stress disorder, chronic Psychiatric care Sleep apnea, unspecified Surgical History History of bladder repair surgery History of endometrial ablation History of hysterectomy History of shoulder surgery History of tubal ligation Family History Brother Diabetes Mother , Acute leukemia at age 42 Cancer Father Cancer Stage IV Kidney Cancer Grandmother Diabetes maternal Grandfather Stroke maternal Social History Quit status (tobacco): has quit using tobacco Year quit tobacco: 08/02/21 Second hand smoke exposure: Yes Smoking risk assessment/counseling performed?: Yes Alcohol intake: current Alcohol intake frequency: holidays/special occasions only Alcohol type: wine and hard liquor Counseling given: No Lives independently: Yes Household members: children 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
[2021-10-08] MEDS: morphine 4 mg/mL SDV 1 mL 8 MG XX (07:41)
--- NOTE | 2021-10-08 08:07 | PM.OP ---
Operative Report Date of procedure: October 08, 2021 Pre-op Diagnosis: Knee Left medial meniscal tear Post-op diagnosis: other Post-op Diagnosis: Grade IV chondromalacia medial femoral condyle, grade III chondromalacia patella, normal menisci Post-op Findings: As above Procedure Done: Arthroscopic chondroplasty medial femoral condyle and patella Surgeon: Sukhwinder Steen Anesthesia: General Estimated blood loss (mL): 5 Findings: The patient had exposed subchondral bone centrally over medial femoral condyle for an area approximately 1 cm wide and approximately 2-1/2 cm in length. She had fibrillation and thinning throughout her patella. Her menisci were healthy. Her lateral compartment and trochlea were generally free of chondromalacia Condition: stable Disposition: PACU Procedure: The patient was taken to the operating room and given 2 g of Ancef. She is provided a general anesthesia. Her left lower extremity was prepped and draped with a tourniquet in place but the tourniquet was never inflated. The knee was infiltrated treated with 30 cc of 0.5% Marcaine with epi and 10 mg of morphine. A timeout was performed. The knee was entered through a standard inferior medial and inferior lateral portal. The diagnostic portion of arthroscopy was performed the medial meniscus was carefully inspected and found to be free of a tearing. Attention was then focused over the areas of central chondromalacia over the medial femoral condyle. Areas of exposed subchondral bone were identified centrally with peripheral unstable flaps. Utilizing the [employer] Werewolf shaver unstable flaps were debrided back to a stable base revealing an area approximately 2.5 cm in length and 1 cm in width. Attention was then focused in the lateral compartment was pristine. The patellofemoral compartment was inspected. Fibrillation and fraying were identified globally about the patella. Utilizing the [employer] Werewolf probe this loose fibrillated tissue was removed. At no point was subchondral bone identified. The trochlea was generally free of chondromalacia. The knee was irrigated with saline. Portals were closed with 3-0 Prolene. Sterile dressings were applied. The patient was extubated taken to recovery in stable condition
[2021-10-08] MEDS: HYDROcodone-acetaminophen 5-325 mg Tablet 1 TAB PO (09:10)
--- NOTE | 2021-10-08 14:16 | ANE.PACU2 ---
Inpatient post-anesthesia follow up: Airway intact: Yes Vital signs: Temperature 97.2 F Pulse Rate 87 Respiratory Rate 20 Blood Pressure 124/75 Pulse Oximetry 94 Oxygen Delivery Me thod Room Air Oxygen Flow Rate 5 Fraction of Inspir ed Oxygen Hydration adequate: Yes Nausea and vomiting: No Pain level: 2 Mental status: Baseline
== END 2021-10-08 09:33 | disposition home or self-care (01) ==
PROVIDERS: PCP Family Medicine; Visit Provider Orthopaedic Surgery
PROC: (CPT 29870; principal; 2021-10-08 07:00)
DX: M17.12 Unilateral primary osteoarthritis, left knee (principal); J44.9 Chronic obstructive pulmonary disease, unspecified; I10 Essential (primary) hypertension; E78.5 Hyperlipidemia, unspecified; E66.01 Morbid (severe) obesity due to excess calories; Z68.43 Body mass index [BMI] 50.0-59.9, adult; F41.9 Anxiety disorder, unspecified; F32.A Depression, unspecified; G47.33 Obstructive sleep apnea (adult) (pediatric); F43.10 Post-traumatic stress disorder, unspecified; Z87.891 Personal history of nicotine dependence
CPT/HCPCS: 29877; J0330; J0690; J1100; J2270; J2405; J2704; J3010; J3490; J7030

== ENCOUNTER 2021-10-26 20:23 | Emergency (ER) | payer MEDICARE, MEDICAID, SELFPAY ==
[2020-12-24 09:14] VITALS: BP 138/92; BMI 60.3
[2021-10-26 21:03] VITALS: BP 161/92; PULSE 105; RESP 24; TEMP 36.6; O2SAT 96; BMI 60.6
--- NOTE | 2021-10-26 21:10 | W.ED.HA ---
HPI - Headache General: Chief Complaint: Headache Stated Complaint: Migraine Time Seen by Provider: 10/26/21 21:09 History of Present Illness: HPI Narrative: Patient is a 40-year-old female comes to the ED with a migraine. Patient has a past medical history of migraines and says this is just like her typical migraine. Symptoms started approximately 2 days ago. She endorses having photophobia, nausea. She rates her migraine currently a 7 out of 10 and the headache is located behind bilateral eyes and it vertex of head. She took her sumatriptan yesterday and it did not help. She is also taken some Tylenol and ibuprofen with no relief. Associated symptoms: Reports nausea; Deny chest pain, fever(s), rash or vomiting Review of Systems Const: Denies: fever(s), chills or fatigue Eyes: Reports: photophobia; Denies: change in vision or eye discomfort ENMT: Denies: throat pain, odynophagia, nasal discharge or nasal congestion Card: Denies: chest pain, palpitations, edema, swelling of feet/ankles, dyspnea on exertion or orthopnea Resp: Denies: dyspnea, productive cough or non-productive cough GI: Reports: nausea; Denies: abdominal pain, vomiting, diarrhea, constipation or hematochezia : Denies: flank pain, dysuria or hematuria Musc: Denies: neck pain, back pain or extremity swelling Skin/Breast: Denies: rash or new lesions Neuro: Reports: headache(s); Denies: numbness in extremities or weakness in extremities PFSH ED PFSH: Medical History Borderline personality disorder Chronic bronchitis Common migraine with intractable migraine History of COPD History of neuropathy History of restless legs syndrome Morbid obesity Nicotine dependence, cigarettes, uncomplicated Post-traumatic stress disorder, chronic Psychiatric care Sleep apnea, unspecified Surgical History History of bladder repair surgery History of endometrial ablation History of hysterectomy History of shoulder surgery History of tubal ligation Family History Brother Diabetes Mother , Acute leukemia at age 42 Cancer Father Cancer Stage IV Kidney Cancer Grandmother Diabetes maternal Grandfather Stroke maternal Social History Quit status (tobacco): has quit using tobacco Year quit tobacco: 08/02/21 Second hand smoke exposure: Yes Smoking risk assessment/counseling performed?: Yes Alcohol intake: current Alcohol intake frequency: holidays/special occasions only Alcohol type: wine and hard liquor Counseling given: No Lives independently: Yes Household members: children 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, 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 Pets and animals: Yes Pets & animals: cat(s) and dog(s) Current gender identity: Female Carolee/Christianity: Wicca Agree to transfusion: Yes Female Reproductive History: Date of last menstrual period: 08/28/18 Para: 3 Spontaneous abortions: No Physical Exam Const: COMMON NORMALS: no acute distress, patient oriented x3 and alert GENERAL APPEARANCE: cooperative and comfortable NUTRITIONAL APPEARANCE: obese HENMT: COMMON NORMALS: normocephalic HEAD & SCALP: normocephalic MOUTH: Normal oral and palatal mucosa present THROAT: posterior oropharynx normal and uvula midline Neck/C-Spine: COMMON NORMALS: supple GENERAL: Yes normal visual inspection Resp: COMMON NORMALS: normal respiratory effort, No retractions, No use of accessory muscles and clear to auscultation bilaterally AUSCULTATION: clear to auscultation bilaterally Cardio: COMMON NORMALS: regular rate, regular rhythm, S1 normal heart sound present, S2 normal heart sound present, No gallops present (Cardio), No clicks present (Cardio), No murmurs present (Cardio) and Peripheral pulses 2+ throughout RATE: regular rate RHYTHM: regular rhythm HEART SOUNDS: S1 normal heart sound present and S2 normal heart sound present PERIPHERAL PULSES: Peripheral pulses 2+ throughout GI: COMMON NORMALS: Normal to inspection, nondistended, normoactive bowel sounds present, Soft to palpation, non-tender and no masses PALPATION: Yes Soft to palpation : COMMON NORMALS: Yes no CVA tenderness BLADDER/KIDNEY EXAM: Yes no CVA tenderness Back/Pelvis: COMMON NORMALS: no CVA tenderness Extremity: COMMON NORMALS: normal to inspection Neuro: COMMON NORMALS: patient oriented x3, CN's II-XII intact bilaterally, moves all extremities, no focal motor deficits and no sensory deficits noted SENSORIUM/ORIENTATION: Yes alert COORDINATION/BALANCE: [id number] test normal SENSORY EXAM: Yes extremities (intact) MOTOR EXAM: 5/5 motor strength present throughout COORDINATION: [id number] test normal Skin: GENERAL SKIN EXAM: dry skin Course Reevaluation(s): Reevaluation #1: I checked on patient after she received migraine cocktail. She says she was feeling a lot better and her migraine was manageable. She rated her current migraine around a 3 or 4. She was ready to go home and rest. Vital Signs: Vital signs: Vital Signs Temperature 97.8 F 10/26/21 21:03 Pulse Rate 100 10/26/21 22:45 Respiratory Rate 18 10/26/21 22:45 Blood Pressure 130/71 10/26/21 22:45 Pulse Oximetry 97 10/26/21 22:45 MDM - Headache MDM Narrative: Medical decision making narrative: Patient is a 40-year-old female comes to the ED with a migraine. Patient has a history of migraine headaches and says that this one is just like her past migraines. Vital stable and no neuro deficits noted on exam. She was given migraine cocktail while here in the ED and migraine improved from an 7 down to a 3. Patient felt like migraine was manageable and she was discharged home. Discharge Plan Discharge Patient Disposition: Home Clinical Impression: Migraine Qualifiers: Migraine type: without aura Status migrainosus presence: without status migrainosus Intractability: not intractable Qualified Code(s): G43.009 - Migraine without aura, not intractable, without status migrainosus Condition: Stable Prescriptions: No Action pantoprazole 40 mg tablet,delayed release (DR/EC) 40 mg PO DAILY RF: 0 albuterol sulfate [ProAir HFA] 90 mcg/actuation HFA aerosol inhaler 2 puff INHALATION Q6H PRN (Reason: shortness of breath) RF: 0 sumatriptan succinate [Imitrex] 100 mg tablet 100 mg PO Q2H PRN (Reason: migraine headache) Qty: 9 RF: 6 albuterol sulfate 2.5 mg /3 mL (0.083 %) solution for nebulization 2.5 mg inhalation Q4H PRN (Reason: sob) RF: 0 zolpidem [Ambien] 5 mg tablet 5 mg PO .HS Qty: 30 RF: 0 aripiprazole [Abilify] 10 mg tablet 10 mg PO DAILY Qty: 30 RF: 2 lorazepam [Ativan] 1 mg tablet 1 mg PO BID PRN (Reason: anxiety) Qty: 60 RF: 0 venlafaxine 75 mg capsule,extended release 24hr 225 mg PO DAILY 30 Days Qty: 90 RF: 2 Mirapex 0.25 mg tablet 0.25 mg PO BEDTIME Qty: 30 RF: 2 Anoro Ellipta 62.5-25 mcg/actuation blister with device 1 inh inhalation DAILY Qty: 60 RF: 3 Aimovig Autoinjector 140 mg/mL auto-injector See Rx Instructions .ROUTE .COMPLEX Qty: 1 RF: 5 metoprolol succinate 50 mg tablet extended release 24 hr 50 mg PO DAILY Qty: 30 RF: 5 pravastatin 10 mg tablet 10 mg PO DAILY Qty: 30 RF: 3 losartan-hydrochlorothiazide 50-12.5 mg tablet 1.5 tab PO DAILY Qty: 45 RF: 5 Hold Instructions: Resume on 08/10/21. hydrocodone-acetaminophen 5-325 mg tablet 1 tab PO Q4H Qty: 30 RF: 0 Discharge Orders: Discharge ED (Routine); Ordered 10/26/21 Ordered By: Mauro Viramontes Referrals: Marcus Wills MD [Primary Care Provider] - Discharge Diet: Regular Discharge Activity: Resume usual activity Patient Instructions: Migraine Headache (ED), Opioid Safety Activity Restrictions/Additional Instructions: Follow-up with medical provider as directed in 7 to 10 days for reevaluation. Continue taking all home medications as previously prescribed. Return to the ER or your medical provider if condition worsens. Please read and understand discharge instructions. Thank you for choosing [facility] for your healthcare needs today. Please realize this is an emergency room and that we are providing you with a medical screening exam and this may not be complete and all inclusive of all the testing and or work up that you may need to determine your ailment or severity of your illness. It is very important that you follow up as instructed or that you return to the Emergency Department should you have concerns or if your condition changes or worsens in any way. Coding Level of Care Code ED Manager Sales Training for Sheila Meraz Exam Comprehensive
[2021-10-26] MEDS: sodium chloride 0.9% 1,000 ML 999 ML IV (21:56)
[2021-10-26] MEDS: ketorolac 30 mg/mL INJ IVP (21:57)
[2021-10-26] MEDS: diphenhydrAMINE 50 mg/mL SDV 1mL 25 MG IVP (21:58)
[2021-10-26] MEDS: dexamethasone 10 mg/mL INJ IVP (21:59)
[2021-10-26] MEDS: metoclopramide 5 mg/mL SDV 2 mL 10 MG IVP (22:01)
[2021-10-26 22:45] VITALS: BP 130/71; PULSE 100; RESP 18; O2SAT 97
== END 2021-10-26 22:46 | disposition home or self-care (01) ==
PROVIDERS: Emergency Provider Physician Assistant; PCP Family Medicine
DX: G43.009 Migraine without aura, not intractable, without status migrainosus (principal); J44.9 Chronic obstructive pulmonary disease, unspecified; Z87.891 Personal history of nicotine dependence
CPT/HCPCS: 96361; 96374; 96375; 99283; J1100; J1200; J1885; J2765; J7030

== ENCOUNTER → 2021-10-28 07:36 | Outpatient (BNVA) | payer MEDICARE, MEDICAID, SELFPAY ==
[2020-12-24 09:14] VITALS: BP 138/92; BMI 60.3
== END ==
PROVIDERS: PCP Family Medicine; Visit Provider Nurse Practitioner
DX: F43.12 Post-traumatic stress disorder, chronic (principal); F60.3 Borderline personality disorder; G47.30 Sleep apnea, unspecified; F17.210 Nicotine dependence, cigarettes, uncomplicated
CPT/HCPCS: 99214

== ENCOUNTER 2021-11-15 18:02 | Emergency (ER) | payer MEDICARE, MEDICAID, SELFPAY ==
[2020-12-24 09:14] VITALS: BP 138/92; BMI 60.3
[2021-11-15 18:19] VITALS: BP 133/90; PULSE 102; RESP 22; TEMP 37; O2SAT 96; BMI 60.7
[2021-11-15 20:26] LABS: Adenovirus Not Detected (NOT DETECT); Chlamydia Pneumoniae Not Detected (NOT DETECT); Coronavirus 229E,HKU1,NL63,OC4 Not Detected (NOT DETECT); Human Metapneumovirus Not Detected (NOT DETECT); Human Rhinovirus/Enterovirus Not Detected (NOT DETECT); Influenza A Not Detected (NOT DETECT); Influenza A H1 Not Detected (NOT DETECT); Influenza A H1-2009 Not Detected (NOT DETECT); Influenza A H3 Not Detected (NOT DETECT); Influenza B Not Detected (NOT DETECT); Mycoplasma Pneumoniae Not Detected (NOT DETECT); Parainfluenza Virus Type 1 Not Detected (NOT DETECT); Parainfluenza Virus Type 2 Not Detected (NOT DETECT); Parainfluenza Virus Type 3 Not Detected (NOT DETECT); Parainfluenza Virus Type 4 Not Detected (NOT DETECT); Respiratory Syncytial Virus A Not Detected (NOT DETECT); Respiratory Syncytial Virus B Not Detected (NOT DETECT); SARS-COV-2 Detected (NOT DETECT)
[2021-11-15 23:30] VITALS: BP 137/91; PULSE 101; RESP 20; TEMP 37.6; O2SAT 95
== END 2021-11-16 02:10 ==
PROVIDERS: Physician Assistant; Emergency Provider Family Medicine; PCP Family Medicine
DX: Z53.21 Procedure and treatment not carried out due to patient leaving prior to being seen by health care provider (principal)
CPT/HCPCS: 87635

== ENCOUNTER 2021-11-22 20:18 | Emergency (ER) | payer MEDICARE, MEDICAID, SELFPAY ==
[2020-12-24 09:14] VITALS: BP 138/92; BMI 60.3
--- NOTE | 2021-11-22 20:28 | USR_ITS ---
PROCEDURE INFORMATION: Exam: US Duplex Right Lower Extremity Veins, Limited Exam date and time: 11/22/2021 8:28 PM Age: 41 years old Clinical indication: Pain; Leg, lower; Right; Additional info: R leg swelling TECHNIQUE: Imaging protocol: Real-time Duplex ultrasound of the Right Lower Extremity with 2-D jang scale, color Doppler flow and spectral waveform analysis with image documentation. Limited exam was focused on the right lower extremity veins. COMPARISON: US soft tissue/extremity [id number] 07/06/2021 2:41 PM FINDINGS: Right deep veins: Unremarkable. The common femoral, femoral, proximal profunda femoral and popliteal veins are patent without thrombus. Normal Doppler waveforms. Normal compressibility and/or augmentation response. Right superficial veins: Unremarkable. Saphenofemoral junction is patent without thrombus. Soft tissues: Unremarkable. US/[place] [id number] IMPRESSION: No evidence of deep vein thrombosis.
[2021-11-22 20:34] VITALS: BP 132/88; PULSE 96; RESP 20; TEMP 37; O2SAT 95; BMI 60.7
--- NOTE | 2021-11-22 21:39 | ED_ITS ---
HPI - Extremity Problem General: Chief complaint: Extremity Problem,Nontraumatic Stated complaint: pt thinks may have DVT R calf Time Seen by Provider: 11/22/21 20:41 History of Present Illness: Patient is a 41-year-old female who comes to the ED with pain in right lower extremity. Patient denies any injury or trauma to cause pain. She says she woke up this morning and had pain in her right calf. It got worse throughout the day and she felt like her right calf a little warm to the touch as well. She is concerned about potentially having a blood clot. Patient tested positive for COVID-19 on November 15. Denies any chest pain, hemoptysis or shortness of breath. Associated symptoms: Deny chest pain, fever(s) or rash Review of Systems Const: Denies: fever(s), chills or fatigue Eyes: Denies: change in vision or eye discomfort ENMT: Denies: throat pain, odynophagia, nasal discharge or nasal congestion Card: Denies: chest pain, palpitations, edema, swelling of feet/ankles, dyspnea on exertion or orthopnea Resp: Denies: dyspnea, productive cough or non-productive cough GI: Denies: abdominal pain, nausea, vomiting, diarrhea, constipation or hematochezia : Denies: flank pain, dysuria or hematuria Musc: Reports: extremity pain (right calf) and extremity swelling (right calf); Denies: neck pain or back pain Skin/Breast: Denies: rash or new lesions Neuro: Denies: headache(s) PFSH ED PFSH: Medical History Borderline personality disorder Chronic bronchitis Common migraine with intractable migraine History of COPD History of neuropathy History of restless legs syndrome Morbid obesity Nicotine dependence, cigarettes, uncomplicated Post-traumatic stress disorder, chronic Psychiatric care Sleep apnea, unspecified Surgical History History of bladder repair surgery History of endometrial ablation History of hysterectomy History of shoulder surgery History of tubal ligation Family History Brother Diabetes Mother , Acute leukemia at age 42 Cancer Father Cancer Stage IV Kidney Cancer Grandmother Diabetes maternal Grandfather Stroke maternal Social History Quit status (tobacco): has quit using tobacco Year quit tobacco: 08/02/21 Second hand smoke exposure: Yes Smoking risk assessment/counseling performed?: Yes Alcohol intake: current Alcohol intake frequency: holidays/special occasions only Alcohol type: wine and hard liquor Counseling given: No Lives independently: Yes Household members: children 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, 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 Pets and animals: Yes Pets & animals: cat(s) and dog(s) Current gender identity: Female Carolee/Quaker: Wicca Agree to transfusion: Yes Female Reproductive History: Date of last menstrual period: 08/28/18 Para: 3 Spontaneous abortions: No Physical Exam Const: COMMON NORMALS: no acute distress, patient oriented x3 and alert GENERAL APPEARANCE: cooperative and comfortable HENMT: COMMON NORMALS: normocephalic HEAD & SCALP: normocephalic MOUTH: Normal oral and palatal mucosa present THROAT: posterior oropharynx normal and uvula midline Neck/C-Spine: COMMON NORMALS: supple GENERAL: Yes normal visual inspection Resp: COMMON NORMALS: normal respiratory effort, No retractions, No use of accessory muscles and clear to auscultation bilaterally AUSCULTATION: clear to auscultation bilaterally Cardio: COMMON NORMALS: regular rate, regular rhythm, S1 normal heart sound present, S2 normal heart sound present, No gallops present (Cardio), No clicks present (Cardio), No murmurs present (Cardio) and Peripheral pulses 2+ throughout RATE: regular rate RHYTHM: regular rhythm HEART SOUNDS: S1 normal heart sound present and S2 normal heart sound present PERIPHERAL PULSES: Peripheral pulses 2+ throughout GI: COMMON NORMALS: Normal to inspection, nondistended, normoactive bowel sounds present, Soft to palpation, non-tender and no masses PALPATION: Yes Soft to palpation : COMMON NORMALS: Yes no CVA tenderness BLADDER/KIDNEY EXAM: Yes no CVA tenderness Back/Pelvis: COMMON NORMALS: no CVA tenderness Extremity: COMMON NORMALS: normal to inspection and no pedal edema GENERAL: Yes calf tenderness (right calf) Neuro: COMMON NORMALS: patient oriented x3 SENSORIUM/ORIENTATION: Yes alert GAIT: Yes Normal gait present Skin: GENERAL SKIN EXAM: dry skin Course Vital Signs: Vital signs: Vital Signs Temperature 98.5 F 11/22/21 22:38 Pulse Rate 94 01/30/22 22:38 Respiratory Rate 20 H 11/22/21 22:38 Blood Pressure 129/86 11/22/21 22:38 Pulse Oximetry 94 11/22/21 22:38 MDM - Extremity (Nontraumatic) Medical Decision Making Patient is a 41-year-old female who comes to the ED right calf pain. Denies any injury or trauma and symptoms started this morning. She has some right calf tenderness and a little bit of swelling but no pedal edema. Denies any chest pain, shortness of breath or hemoptysis. Ultrasound venous duplex right lower extremity showed no blood clot or DVT seen. Patient diagnosed with musculoskeletal right lower leg pain and discharged home. She was told to follow-up with PCP in 7 to 10 days for reevaluation. Return to ED precautions given. Patient understood and agree with plan. Lab Data Radiology Impressions Venous Duplex 11/22/21 20:28 IMPRESSION: No evidence of deep vein thrombosis. Imaging Data US Vascular: Radiologist's impression: Ultrasound venous duplex of right lower extremity?prelim report no DVT or blood clots seen. Discharge Plan Discharge Patient Disposition: Home Clinical Impression: Musculoskeletal pain of right lower extremity Condition: Stable Prescriptions: No Action pantoprazole 40 mg tablet,delayed release (DR/EC) 40 mg PO DAILY 0RF albuterol sulfate [ProAir HFA] 90 mcg/actuation HFA aerosol inhaler 2 puff INHALATION Q6H PRN (Reason: shortness of breath) 0RF sumatriptan succinate [Imitrex] 100 mg tablet 100 mg PO Q2H PRN (Reason: migraine headache) Qty: 9 6RF albuterol sulfate 2.5 mg /3 mL (0.083 %) solution for nebulization 2.5 mg inhalation Q4H PRN (Reason: sob) 0RF aripiprazole [Abilify] 10 mg tablet 10 mg PO DAILY Qty: 30 2RF lorazepam [Ativan] 1 mg tablet 1 mg PO BID PRN (Reason: anxiety) Qty: 60 0RF venlafaxine 75 mg capsule,extended release 24hr 225 mg PO DAILY 30 Days Qty: 90 2RF Mirapex 0.25 mg tablet 0.25 mg PO BEDTIME Qty: 30 2RF zolpidem [Ambien CR] 6.25 mg tablet,ext release multiphase 6.25 mg PO .HS Qty: 30 0RF Anoro Ellipta 62.5-25 mcg/actuation blister with device 1 inh inhalation DAILY Qty: 60 3RF Aimovig Autoinjector 140 mg/mL auto-injector See Rx Instructions .ROUTE .COMPLEX Qty: 1 5RF Dose Instruction: INJECT 140MG SUBCUTANEOUSLY MONTHLY (PT TAKES AT THE FIRST OF THE MONTH) Rx Instructions: INJECT 140MG SUBCUTANEOUSLY MONTHLY (1st of the month) metoprolol succinate 50 mg tablet extended release 24 hr 50 mg PO DAILY Qty: 30 5RF pravastatin 10 mg tablet 10 mg PO DAILY Qty: 30 3RF losartan-hydrochlorothiazide 50-12.5 mg tablet 1.5 tab PO DAILY Qty: 45 5RF Hold Instructions: Resume on 08/10/21. hydrocodone-acetaminophen 5-325 mg tablet 1 tab PO Q4H Qty: 30 0RF Discharge Orders: Discharge ED (Routine); Ordered 11/22/21 Ordered By: Mauro Viramontes Referrals: Marcus Wills MD [Primary Care Provider] - Discharge Diet: Regular Discharge Activity: Increase activity as tolerated Patient Instructions: Musculoskeletal Pain (ED) Activity Restrictions/Additional Instructions: Follow-up with medical provider as directed in the next 5-7 days for reevaluation. Elevate right lower extremity and apply cold pack to elbow symptoms. Take [id number] Tylenol or ibuprofen for pain. Return to the ER or your medical provider if condition worsens. Please read and understand discharge instructions. Thank you for choosing [facility] for your healthcare needs today. Please realize this is an emergency room and that we are providing you with a medical screening exam and this may not be complete and all inclusive of all the testing and or work up that you may need to determine your ailment or severity of your illness. It is very important that you follow up as instructed or that you return to the Emergency Department should you have concerns or if your condition changes or worsens in any way. Coding Level of Care Code ED Confectionery Drops Machine Operator for Sheila Meraz Exam Comprehensive
[2021-11-22 22:38] VITALS: BP 129/86; PULSE 94; RESP 20; TEMP 36.9; O2SAT 94
== END 2021-11-22 22:39 | disposition home or self-care (01) ==
PROVIDERS: Emergency Provider Physician Assistant; PCP Family Medicine
DX: M79.604 Pain in right leg (principal); J44.9 Chronic obstructive pulmonary disease, unspecified; Z87.891 Personal history of nicotine dependence
CPT/HCPCS: 93971; 99282

== ENCOUNTER → 2021-11-25 06:52 | Outpatient (BNVA) | payer MEDICARE, MEDICAID, SELFPAY ==
[2020-12-24 09:14] VITALS: BP 138/92; BMI 60.3
== END ==
PROVIDERS: PCP Family Medicine; Visit Provider Nurse Practitioner
DX: F43.12 Post-traumatic stress disorder, chronic (principal); F60.3 Borderline personality disorder; G47.30 Sleep apnea, unspecified; F17.210 Nicotine dependence, cigarettes, uncomplicated
CPT/HCPCS: 99214

== ENCOUNTER → 2021-12-23 08:40 | Outpatient (BNVA) | payer MEDICARE, MEDICAID, SELFPAY ==
[2020-12-24 09:14] VITALS: BP 138/92; BMI 60.3
== END ==
PROVIDERS: PCP Family Medicine; Visit Provider Counselor Professional
DX: F43.12 Post-traumatic stress disorder, chronic (principal); F60.3 Borderline personality disorder
CPT/HCPCS: 90834; 80061; 83036

== ENCOUNTER → 2021-12-24 07:38 | Outpatient (BNVA) | payer MEDICARE, MEDICAID, SELFPAY ==
[2020-12-24 09:14] VITALS: BP 138/92; BMI 60.3
== END ==
PROVIDERS: PCP Family Medicine; Visit Provider Nurse Practitioner
DX: F43.12 Post-traumatic stress disorder, chronic (principal); F60.3 Borderline personality disorder
CPT/HCPCS: 99214

== ENCOUNTER → 2021-12-28 08:10 | Outpatient (BNVA) | payer MEDICARE, MEDICAID, SELFPAY ==
[2021-12-24 14:27] VITALS: BP 150/89; BMI 60.4
== END ==
PROVIDERS: PCP Family Medicine; Visit Provider Specialist
DX: G43.019 Migraine without aura, intractable, without status migrainosus (principal); E66.01 Morbid (severe) obesity due to excess calories; Z68.44 Body mass index [BMI] 60.0-69.9, adult; F17.200 Nicotine dependence, unspecified, uncomplicated
CPT/HCPCS: 99212; 99213

== ENCOUNTER → 2021-12-30 14:39 | Outpatient (BNVA) | payer MEDICARE, MEDICAID, SELFPAY ==
[2021-12-24 14:27] VITALS: BP 150/89; BMI 60.4
== END ==
PROVIDERS: PCP Family Medicine; Visit Provider Internal Medicine Cardiovascular Disease
DX: R07.9 Chest pain, unspecified (principal); I10 Essential (primary) hypertension; E66.01 Morbid (severe) obesity due to excess calories; F17.210 Nicotine dependence, cigarettes, uncomplicated; G62.9 Polyneuropathy, unspecified; G47.33 Obstructive sleep apnea (adult) (pediatric); Z68.44 Body mass index [BMI] 60.0-69.9, adult
CPT/HCPCS: 99214

== ENCOUNTER 2022-01-25 05:35 | Emergency (ER) | payer MEDICARE, MEDICAID, SELFPAY ==
[2021-12-24 14:27] VITALS: BP 150/89; BMI 60.4
[2022-01-25 05:37] VITALS: BP 134/80; PULSE 108; RESP 20; TEMP 36.7; O2SAT 96; BMI 60.0
--- NOTE | 2022-01-25 06:04 | ED_ITS ---
HPI - Wound/Laceration General: Chief Complaint: Wound/Laceration Stated Complaint: lac Time Seen by Provider: 01/25/22 06:04 Source: patient Mode of arrival: EMS Limitations: no limitations History of Present Illness: 41-year-old female stepped on a wire basket at home with a laceration on the flexor crease of her left fifth toe brought in by EMS. No active bleeding unsure of last tetanus Onset (ago): minute(s) Extremity Location: Left: foot (Left fifth toe) Place: home Patient tetanus UTD: No Context: accidental Associated symptoms: Denies chills, fever(s), foreign body sensation, inability to move, nausea, numbness, pain, syncope or vomiting Review of Systems Const: Denies: fever(s) or chills Card: Denies: syncope Resp: Denies: dyspnea, productive cough or non-productive cough GI: Denies: nausea or vomiting PFS ED PFSH: Medical History Borderline personality disorder Chronic bronchitis Common migraine with intractable migraine History of COPD History of neuropathy History of restless legs syndrome Morbid obesity Nicotine dependence, cigarettes, uncomplicated Post-traumatic stress disorder, chronic Psychiatric care Sleep apnea, unspecified Surgical History History of bladder repair surgery History of endometrial ablation History of hysterectomy History of shoulder surgery History of tubal ligation Family History Brother Diabetes Mother , Acute leukemia at age 42 Cancer Father Cancer Stage IV Kidney Cancer Grandmother Diabetes maternal Grandfather Stroke maternal Social History Smoking and tobacco status: current every day smoker cigarettes Packs smoked per day: 0.5 Years cigarettes smoked: 26 Quit status (tobacco): has quit using tobacco Year quit tobacco: 08/02/21 Former quit date comment: started smoking again Second hand smoke exposure: Yes Smoking risk assessment/counseling performed?: Yes Alcohol intake: current Alcohol intake frequency: holidays/special occasions only Alcohol type: wine and hard liquor Counseling given: No Adopted: No Caregiver/support person: Yes (Med nurse sets up her medications) Lives independently: Yes Household members: children Housing: Manufactured/Mobile home Marital status: Number of children: 3 Number of grandchildren: 0 Highest education level completed: Associate Degree: Occupational, Technical, Vocational Program 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, 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: No Current occupational status: disabled Pets and animals: Yes Pets & animals: cat(s), dog(s) and ferret(s) History of recent travel: Yes ([facility] all over) Out of state: Yes Leisure activites: art, games and reading Sexually active: No Current gender identity: Female Carolee/Rastafarian: Wicca Special carolee needs: No Agree to transfusion: Yes Financial difficulty paying for basics: Somewhat Hard Female Reproductive History: Date of last menstrual period: 08/28/18 Para: 3 Spontaneous abortions: No Procedures Laceration Laceration 1: Site: lower extremity Side (If applicable): left Size (cm): 0.5 Description: linear Depth: simple, single layer Local Anesthetic: lidocaine 1% Amount of anesthesia used (mL): 3 Pre-repair: irrigated extensively Skin layer closed with: nylon Size (cm): 4-0 Number of sutures: 2 Technique: simple, interrupted Course Vital Signs: Vital signs: Vital Signs Temperature 98.0 F 01/25/22 05:37 Pulse Rate 108 H 01/25/22 05:37 Respiratory Rate 20 H 01/25/22 05:37 Blood Pressure 134/80 01/25/22 05:37 Pulse Oximetry 96 01/25/22 05:37 MDM - Wound/Laceration Medical Decision Making See laceration note wound closed sutures out in 10 days tetanus updated apply topical antibiotic twice daily Medical Records I reviewed the patient's medical records. Lab Data I reviewed the patient's lab results. Discharge Plan Discharge Patient Disposition: Home Clinical Impression: Laceration of toe of left foot Condition: Stable Prescriptions: New mupirocin 2 % ointment 1 applic topical BID Qty: 15 0RF No Action pantoprazole 40 mg tablet,delayed release (DR/EC) 40 mg PO DAILY 0RF clopidogrel [Plavix] 75 mg tablet 75 mg PO DAILY Qty: 30 6RF losartan-hydrochlorothiazide 50-12.5 mg tablet 1.5 tab PO DAILY Qty: 45 5RF Hold Instructions: Resume on 08/10/21. metoprolol succinate 100 mg tablet extended release 24 hr 100 mg PO DAILY Qty: 90 3RF pravastatin 20 mg tablet 20 mg PO DAILY Qty: 90 3RF albuterol sulfate [ProAir HFA] 90 mcg/actuation HFA aerosol inhaler 2 puff INHALATION Q6H PRN (Reason: shortness of breath) 0RF albuterol sulfate 2.5 mg /3 mL (0.083 %) solution for nebulization 2.5 mg inhalation Q4H PRN (Reason: sob) 0RF sumatriptan succinate [Imitrex] 100 mg tablet 100 mg PO Q2H PRN (Reason: migraine headache) Qty: 9 6RF Aimovig Autoinjector 140 mg/mL auto-injector See Rx Instructions .ROUTE .COMPLEX Qty: 1 11RF Dose Instruction: INJECT 140MG SUBCUTANEOUSLY MONTHLY (PT TAKES AT THE FIRST OF THE MONTH) Rx Instructions: INJECT 140MG SUBCUTANEOUSLY MONTHLY (1st of the month) lorazepam [Ativan] 1 mg tablet 1 mg PO BID PRN (Reason: anxiety) Qty: 60 0RF venlafaxine 75 mg capsule,extended release 24hr 225 mg PO DAILY 30 Days Qty: 90 2RF zolpidem [Ambien CR] 6.25 mg tablet,ext release multiphase 6.25 mg PO .HS Qty: 30 2RF Mirapex 0.25 mg tablet 0.25 mg PO BEDTIME Qty: 30 2RF aripiprazole [Abilify] 10 mg tablet 10 mg PO DAILY Qty: 30 2RF Anoro Ellipta 62.5-25 mcg/actuation blister with device 1 inh inhalation DAILY Qty: 60 3RF Discharge Orders: Discharge ED (Routine); Ordered 01/25/22 Ordered By: William Marin Referrals: Marcus Wills MD [Primary Care Provider] - Discharge Diet: Usual diet Discharge Activity: Resume usual activity Activity Restrictions/Additional Instructions: Remove sutures in 10 days Coding Level of Care Code ED Luggage Maker for Sheila Meraz
[2022-01-25] MEDS: tetanus-dipt-pertussis 0.5 mL SDV IM (06:30)
[2022-01-25] MEDS: bacitracin ointment Pkt 1 EACH TOPICAL (06:33)
== END 2022-01-25 06:56 | disposition home or self-care (01) ==
PROVIDERS: Emergency Provider Family Medicine; PCP Family Medicine
DX: S91.115A Laceration without foreign body of left lesser toe(s) without damage to nail, initial encounter (principal); W45.8XXA Other foreign body or object entering through skin, initial encounter; F17.210 Nicotine dependence, cigarettes, uncomplicated; Z79.02 Long term (current) use of antithrombotics/antiplatelets
CPT/HCPCS: 12001; 90471; 90715; 99283

== ENCOUNTER 2022-02-11 20:31 | Emergency (ER) | payer MEDICARE, MEDICAID, SELFPAY ==
[2021-12-24 14:27] VITALS: BP 150/89; BMI 60.4
[2022-02-11 20:58] VITALS: BP 167/109; PULSE 94; RESP 20; TEMP 37.5; O2SAT 95; BMI 60.5
--- NOTE | 2022-02-11 23:27 | W.ED.HA ---
HPI - Headache General: Chief Complaint: Headache Stated Complaint: Migraine for 4 days, dizzy Time Seen by Provider: 02/11/22 21:40 Source: patient Mode of arrival: ambulatory Limitations: no limitations History of Present Illness: 41-year-old female who states that she has had a migraine headache last 3 days she states that she has not been taking her monthly migraine shot due to insurance not covering it states that the headache is gradually worsened over the last 3 days now an 8 out of 10 states it is behind her eyes she has photophobia phonophobia this feels just like her previous migraines denies this being the worst headache of her life denies any fevers denies any head injuries Associated symptoms: Deny chest pain, fever(s), nausea, rash or vomiting Review of Systems Const: Denies: fever(s), chills, body aches or change in appetite Eyes: Denies: blurry vision or eye discomfort ENMT: Denies: throat pain or dental pain Card: Denies: chest pain Resp: Denies: dyspnea GI: Denies: abdominal pain, nausea, vomiting or diarrhea : Denies: dysuria Musc: Denies: neck pain or back pain Skin/Breast: Denies: rash Neuro: Reports: headache(s) Psych: Denies: depression Karan/Lymph: Denies: easy bruising All/Imm: Denies: urticaria PFSH ED PFSH: Medical History Borderline personality disorder Chronic bronchitis Common migraine with intractable migraine History of COPD History of neuropathy History of restless legs syndrome Morbid obesity Nicotine dependence, cigarettes, uncomplicated Post-traumatic stress disorder, chronic Psychiatric care Sleep apnea, unspecified Surgical History History of bladder repair surgery History of endometrial ablation History of hysterectomy History of shoulder surgery History of tubal ligation Family History Brother Diabetes Mother , Acute leukemia at age 42 Cancer Father Cancer Stage IV Kidney Cancer Grandmother Diabetes maternal Grandfather Stroke maternal Social History Smoking and tobacco status: current every day smoker cigarettes Packs smoked per day: 0.5 Years cigarettes smoked: 26 Quit status (tobacco): has quit using tobacco Year quit tobacco: 08/02/21 Former quit date comment: started smoking again Second hand smoke exposure: Yes Smoking risk assessment/counseling performed?: Yes Alcohol intake: current Alcohol intake frequency: holidays/special occasions only Alcohol type: wine and hard liquor Counseling given: No Adopted: No Caregiver/support person: Yes (Med nurse sets up her medications) Lives independently: Yes Household members: children Housing: Manufactured/Mobile home Marital status: Number of children: 3 Number of grandchildren: 0 Highest education level completed: Associate Degree: Occupational, Technical, Vocational Program 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, 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: No Current occupational status: disabled Pets and animals: Yes Pets & animals: cat(s), dog(s) and ferret(s) History of recent travel: Yes ([facility]) Out of state: Yes Leisure activites: art, games and reading Sexually active: No Current gender identity: Female Carolee/Yazdanism: Wicca Special carolee needs: No Agree to transfusion: Yes Financial difficulty paying for basics: Somewhat Hard Female Reproductive History: Date of last menstrual period: 08/28/18 Para: 3 Spontaneous abortions: No Physical Exam Const: COMMON NORMALS: no acute distress, patient oriented x3 and healthy appearing HENMT: COMMON NORMALS: normocephalic and atraumatic HEAD & SCALP: normocephalic and atraumatic Eye: COMMON NORMALS: Equal, round and reactive pupils present and EOMs intact bilaterally PUPIL: Yes Equal, round and reactive pupils present Neck/C-Spine: COMMON NORMALS: full ROM, supple and no meningeal signs Chest: COMMONS NORMALS: normal inspection of the chest and normal palpation of entire chest wall Resp: COMMON NORMALS: normal respiratory effort, No retractions, No use of accessory muscles and clear to auscultation bilaterally AUSCULTATION: clear to auscultation bilaterally Cardio: COMMON NORMALS: regular rate, regular rhythm and No murmurs present (Cardio) RATE: regular rate RHYTHM: regular rhythm GI: COMMON NORMALS: Normal to inspection, nondistended, normoactive bowel sounds present, Soft to palpation, non-tender and no masses PALPATION: Yes Soft to palpation Extremity: COMMON NORMALS: normal to inspection and full ROM Neuro: COMMON NORMALS: patient oriented x3, moves all extremities and no focal motor deficits MENINGEAL SIGNS: Yes no meningeal signs and No nuccal rigidity Psych: COMMON NORMALS: mental status grossly normal, Normal thought process present and cooperative THOUGHT PROCESS: Normal thought process present Skin: COMMON NORMALS: no rashes or lesions noted and no wounds GENERAL SKIN EXAM: no rashes or lesions noted Course Vital Signs: Vital signs: Vital Signs Temperature 99.5 F 02/11/22 20:58 Pulse Rate 91 02/11/22 23:36 Respiratory Rate 16 02/11/22 23:36 Blood Pressure 134/75 02/11/22 23:36 Pulse Oximetry 97 02/11/22 23:36 MDM - Headache Medical Decision Making Patient presents here with migraine headache she has no signs subarachnoid hemorrhage or meningitis she feels much improved after Reglan and Benadryl Toradol she is stable for discharge follow-up with her neurologist return if worsening she understands Giovani plan Discharge Plan Discharge Patient Disposition: Home Clinical Impression: Migraine Condition: Stable Prescriptions: No Action pantoprazole 40 mg tablet,delayed release (DR/EC) 40 mg PO DAILY 0RF clopidogrel [Plavix] 75 mg tablet 75 mg PO DAILY Qty: 30 6RF losartan-hydrochlorothiazide 50-12.5 mg tablet 1.5 tab PO DAILY Qty: 45 5RF Hold Instructions: Resume on 08/10/21. metoprolol succinate 100 mg tablet extended release 24 hr 100 mg PO DAILY Qty: 90 3RF pravastatin 20 mg tablet 20 mg PO DAILY Qty: 90 3RF albuterol sulfate [ProAir HFA] 90 mcg/actuation HFA aerosol inhaler 2 puff INHALATION Q6H PRN (Reason: shortness of breath) 0RF albuterol sulfate 2.5 mg /3 mL (0.083 %) solution for nebulization 2.5 mg inhalation Q4H PRN (Reason: sob) 0RF sumatriptan succinate [Imitrex] 100 mg tablet 100 mg PO Q2H PRN (Reason: migraine headache) Qty: 9 6RF Aimovig Autoinjector 140 mg/mL auto-injector See Rx Instructions .ROUTE .COMPLEX Qty: 1 11RF Dose Instruction: INJECT 140MG SUBCUTANEOUSLY MONTHLY (PT TAKES AT THE FIRST OF THE MONTH) Rx Instructions: INJECT 140MG SUBCUTANEOUSLY MONTHLY (1st of the month) lorazepam [Ativan] 1 mg tablet 1 mg PO BID PRN (Reason: anxiety) Qty: 60 0RF venlafaxine 75 mg capsule,extended release 24hr 225 mg PO DAILY 30 Days Qty: 90 2RF zolpidem [Ambien CR] 6.25 mg tablet,ext release multiphase 6.25 mg PO .HS Qty: 30 2RF Mirapex 0.25 mg tablet 0.25 mg PO BEDTIME Qty: 30 2RF aripiprazole [Abilify] 10 mg tablet 10 mg PO DAILY Qty: 30 2RF Anoro Ellipta 62.5-25 mcg/actuation blister with device 1 inh inhalation DAILY Qty: 60 3RF mupirocin 2 % ointment 1 applic topical BID Qty: 15 0RF Discharge Orders: Discharge ED (Routine); Ordered 02/11/22 Ordered By: Rose Suazo Referrals: Keena Delaney MD [Physician] - 1-3 days Marcus Wills MD [Primary Care Provider] - Discharge Diet: Advance as tolerated Discharge Activity: Resume usual activity Patient Instructions: Migraine Headache (ED) Coding Level of Care Code ED Sec Reporting Consultant for Chg Fwd Exam Comprehensive
[2022-02-11 23:36] VITALS: BP 134/75; PULSE 91; RESP 16; O2SAT 97
[2022-02-11] MEDS: diphenhydrAMINE 50 mg/mL SDV 1mL IVP (23:40)
[2022-02-11] MEDS: ketorolac 30 mg/mL INJ 15 MG IVP (23:40)
[2022-02-11] MEDS: metoclopramide 5 mg/mL SDV 2 mL 10 MG IVP (23:40)
[2022-02-12 00:16] VITALS: BP 128/75; PULSE 89; RESP 16; O2SAT 98
== END 2022-02-12 00:10 | disposition home or self-care (01) ==
PROVIDERS: Emergency Provider Emergency Medicine; PCP Family Medicine
DX: G43.909 Migraine, unspecified, not intractable, without status migrainosus (principal); Z91.120 Patient's intentional underdosing of medication regimen due to financial hardship; F17.210 Nicotine dependence, cigarettes, uncomplicated; Z79.02 Long term (current) use of antithrombotics/antiplatelets; Z79.51 Long term (current) use of inhaled steroids
CPT/HCPCS: 96374; 96375; 99283; J1200; J1885; J2765

== ENCOUNTER 2022-02-23 07:40 | Emergency (ER) | payer MEDICARE, MEDICAID, SELFPAY ==
[2021-12-24 14:27] VITALS: BP 150/89; BMI 60.4
[2022-02-23 07:43] VITALS: BP 152/84; PULSE 95; RESP 21; TEMP 36.9; O2SAT 96; BMI 60.6
--- NOTE | 2022-02-23 07:54 | ED_ITS ---
HPI - Chest Pain General: Chief Complaint: Chest Pain Stated Complaint: CHEST PAIN Time Seen by Provider: 02/23/22 07:42 Source: patient Mode of arrival: ambulatory Limitations: no limitations History of Present Illness: 41-year-old female who presents to the emergency room with complaints of chest discomfort. She states she has had this for the last several days since persisting today at the time seen patient she is resting comfortably states her pain is a 6 of 10 radiating into her left arm. She has seen cardiology in the past. She was seen here2 weeks ago for a migraine. February 2021 patient had Lexiscan sestamibi stress test chart which was read as negative. complaint: chest pain and chest heaviness Onset (ago): week(s) Timing of current episode: episodic Prior episodes: Yes Onset: during rest Pain location: left chest Pain radiation: left arm Severity: mild Quality: tightness, aching and heaviness Relieving factors: nothing Exacerbating factors: nothing Associated symptoms: Reports dyspnea; Deny abdominal pain, diaphoresis, fever(s), leg edema, nausea, palpitations, sense of impending doom, syncope or vomiting Treatment prior to arrival: none Review of Systems Const: Denies: fever(s) or diaphoresis ENMT: Denies: throat pain, ear or mastoid pain, nasal discharge or nasal congestion Card: Denies: palpitations or syncope Resp: Reports: dyspnea GI: Denies: abdominal pain, nausea or vomiting : Denies: flank pain, difficulty voiding, dysuria, urinary frequency or urinary urgency Skin/Breast: Denies: rash or pruritus PFSH ED PFSH: Medical History Borderline personality disorder Chronic bronchitis Common migraine with intractable migraine History of COPD History of neuropathy History of restless legs syndrome Morbid obesity Nicotine dependence, cigarettes, uncomplicated Post-traumatic stress disorder, chronic Psychiatric care Sleep apnea, unspecified Surgical History History of bladder repair surgery History of endometrial ablation History of hysterectomy History of shoulder surgery History of tubal ligation Family History Brother Diabetes Mother , Acute leukemia at age 42 Cancer Father Cancer Stage IV Kidney Cancer Grandmother Diabetes maternal Grandfather Stroke maternal Social History Smoking and tobacco status: current every day smoker cigarettes Packs smoked per day: 0.5 Years cigarettes smoked: 26 Quit status (tobacco): has quit using tobacco Year quit tobacco: 08/02/21 Former quit date comment: started smoking again Second hand smoke exposure: Yes Smoking risk assessment/counseling performed?: Yes Alcohol intake: current Alcohol intake frequency: holidays/special occasions only Alcohol type: wine and hard liquor Counseling given: No Adopted: No Caregiver/support person: Yes (Med nurse sets up her medications) Lives independently: Yes Household members: children Housing: Manufactured/Mobile home Marital status: Number of children: 3 Number of grandchildren: 0 Highest education level completed: Associate Degree: Occupational, Technical, Vocational Program 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, 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: No Current occupational status: disabled Pets and animals: Yes Pets & animals: cat(s), dog(s) and ferret(s) History of recent travel: Yes ([facility] all over) Out of state: Yes Leisure activites: art, games and reading Sexually active: No Current gender identity: Female Carolee/Sabianist: Wicca Special carolee needs: No Agree to transfusion: Yes Financial difficulty paying for basics: Somewhat Hard Female Reproductive History: Date of last menstrual period: 08/28/18 Para: 3 Spontaneous abortions: No Physical Exam Const: GENERAL APPEARANCE: cooperative and comfortable ORIENTATION/CONSCIOUSNESS: Yes awake, Yes oriented to person, Yes oriented to place and Yes oriented to time HENMT: COMMON NORMALS: normocephalic, atraumatic and hearing grossly normal bilaterally HEAD & SCALP: normocephalic and atraumatic Neck/C-Spine: COMMON NORMALS: no JVD Resp: COMMON NORMALS: normal respiratory effort, No retractions, No use of a ccessory muscles and clear to auscultation bilaterally AUSCULTATION: clear to auscultation bilaterally Cardio: COMMON NORMALS: no JVD, regular rate, regular rhythm and No murmurs present (Cardio) RATE: regular rate RHYTHM: regular rhythm GI: COMMON NORMALS: Soft to palpation and No hepatosplenomegaly present AUSCULTATION: Yes normoactive bowel sounds PALPATION: Yes Soft to palpation, No Tenderness to palpation present (GI), No Guarding due to palpation present (GI) and Yes No hepatosplenomegaly present Extremity: COMMON NORMALS: normal to inspection, capillary refill normal, no clubbing, cyanosis or edema, no calf tenderness and no pedal edema Neuro: SENSORIUM/ORIENTATION: Yes oriented to person, Yes oriented to place and Yes oriented to time Skin: COMMON NORMALS: no rashes or lesions noted GENERAL SKIN EXAM: no rashes or lesions noted Course Vital Signs: Vital signs: Vital Signs Temperature 98 F 02/23/22 11:41 Pulse Rate 66 02/23/22 11:41 Respiratory Rate 18 02/23/22 11:41 Blood Pressure 116/54 02/23/22 11:41 Pulse Oximetry 99 02/23/22 11:41 MDM - Chest Pain Medical Decision Making Cardiac enzymes are negative. Patient is feeling somewhat better. We will go and discharge home increase pantoprazole to 40 twice daily ondansetron to use as needed and follow-up with primary care doctor within 1 week. Return if has fur ther problems. Medical Records I reviewed the patient's medical records. Lab Data I reviewed the patient's lab results. : 02/23/22 07:45 02/23/22 07:45 Radiology Impressions Chest X-Ray 02/23/22 09:11 IMPRESSION: No acute findings. Laboratory Results WBC 9.7 10^3/uL (4.0-10.0) 02/23/22 07:45 RBC 4.53 10^6/uL (4.1-5.3) 02/23/22 07:45 Hgb 12.8 g/dL (11.5-15.3) 02/23/22 07:45 Hct 39.6 % (37.0-47.0) 02/23/22 07:45 MCV 87.4 fl (81-99) 02/23/22 07:45 MCH 28.3 pg (28.0-34.0) 02/23/22 07:45 MCHC 32.3 g/dL (30.0-36.0) 02/23/22 07:45 RDW 14.8 % (12.1-15.1) 02/23/22 07:45 Plt Count 258 10^3/cmm (130-400) 02/23/22 07:45 MPV 10.1 fL (7.4-10.4) 02/23/22 07:45 Neut % (Auto) 76.4 % 02/23/22 07:45 Lymph % (Auto) 15.6 % 02/23/22 07:45 [place] % (Auto) 4.9 % 02/23/22 07:45 Eos % (Auto) 2.4 % 02/23/22 07:45 Baso % (Auto) 0.3 % 02/23/22 07:45 Neut # (Auto) 7.37 10^3/uL (1.8-7.7) 02/23/22 07:45 Lymph # (Auto) 1.5 10^3/uL (0.8-4.8) 02/23/22 07:45 [place] # (Auto) 0.5 10^3/uL (0.2-0.9) 02/23/22 07:45 Eos # (Auto) 0.2 10^3/uL (0.0-0.8) 02/23/22 07:45 Baso # (Auto) 0.0 10^3/uL (0.0-0.1) 02/23/22 07:45 Nucleated RBC % (auto) 0 % 02/23/22 07:45 Nucleated RBCs # 0.0 /100WBC 02/23/22 07:45 Sodium 134 mmol/L (136-145) L 02/23/22 07:45 Potassium 3.9 mmol/L (3.5-5.1) 02/23/22 07:45 Chloride 98 mmol/L (98-107) 02/23/22 07:45 Carbon Dioxide 26 mmol/L (22-29) 02/23/22 07:45 Anion Gap 13.9 (5-19) 02/23/22 07:45 BUN 11 mg/dL (6-20) 02/23/22 07:45 Creatinine 0.5 mg/dL (0.5-0.9) 02/23/22 07:45 GFR Calculation 134.7 mL/min (90-130) H 02/23/22 07:45 Glucose 228 mg/dL (65-115) H 02/23/22 07:45 Calculated Osmolality 285 mOsm/kg (285-295) 02/23/22 07:45 Calcium 8.1 mg/dL (8.5-10.5) L 02/23/22 07:45 Total Bilirubin 0.3 mg/dL (0.15-1.2) 02/23/22 07:45 AST 16 U/L (0-32) 02/23/22 07:45 ALT 23 U/L (0-33) 02/23/22 07:45 Alkaline Phosphatase 103 IU/L (35-105) 02/23/22 07:45 Troponin T Baseline 7 ng/L (0-10) 02/23/22 07:45 Troponin T 120 Minute 6.00 ng/L (0-10) 02/23/22 09:35 Delta Troponin T -1 ABS# (0-10) L 02/23/22 09:35 Total Protein 6.5 g/dL (6.6-8.7) L 02/23/22 07:45 Albumin 3.8 g/dL (3.5-5.2) 02/23/22 07:45 Globulin 2.7 g/dL (1.3-4.6) 02/23/22 07:45 Discharge Plan Discharge Patient Disposition: Home Clinical Impression: Atypical chest pain Condition: Stable Prescriptions: New ondansetron HCl 4 mg tablet 4 mg PO Q6H PRN (Reason: nausea and vomiting) Qty: 20 0RF Continued pantoprazole 40 mg tablet,delayed release (DR/EC) 40 mg PO QAM 0RF No Action albuterol sulfate [ProAir HFA] 90 mcg/actuation HFA aerosol inhaler 2 puff INHALATION Q6H PRN (Reason: shortness of breath) 0RF albuterol sulfate 2.5 mg /3 mL (0.083 %) solution for nebulization 2.5 mg inhalation Q4H PRN (Reason: Shortness Of Breath) 0RF sumatriptan succinate [Imitrex] 100 mg tablet 100 mg PO Q2H PRN (Reason: migraine headache) Qty: 9 6RF Aimovig Autoinjector 140 mg/mL auto-injector See Rx Instructions .ROUTE .COMPLEX Qty: 1 11RF Dose Instruction: INJECT 140MG SUBCUTANEOUSLY MONTHLY (PT TAKES AT THE FIRST OF THE MONTH) Rx Instructions: INJECT 140MG SUBCUTANEOUSLY MONTHLY (1st of the month) lorazepam [Ativan] 1 mg tablet 1 mg PO BID PRN (Reason: anxiety) Qty: 60 0RF Mirapex 0.25 mg tablet 0.25 mg PO BEDTIME Qty: 30 2RF Anoro Ellipta 62.5-25 mcg/actuation blister with device 1 inh inhalation DAILY Qty: 60 3RF Zyrtec 10 mg Tablet 10 mg PO QAM 0RF Tylenol Ex Str Rapid Release 500 mg Tablet 1,000 mg PO Q6H PRN (Reason: Pain) 0RF ibuprofen 200 mg Tablet 800 mg PO Q6H PRN (Reason: Pain) 0RF venlafaxine 75 mg capsule,extended release 24hr 225 mg PO QAM 0RF metoprolol succinate 100 mg tablet extended release 24 hr 100 mg PO QAM 0RF clopidogrel [Plavix] 75 mg tablet 75 mg PO QAM 0RF pravastatin 20 mg tablet 20 mg PO BEDTIME 0RF losartan-hydrochlorothiazide 50-12.5 mg tablet 1.5 tab PO QAM 0RF aripiprazole [Abilify] 10 mg tablet 10 mg PO QAM 0RF zolpidem [Ambien CR] 6.25 mg tablet,ext release multiphase 6.25 mg PO BEDTIME PRN (Reason: Sleep) 0RF Discharge Orders: Discharge ED (Routine); Ordered 02/23/22 Ordered By: William Marin Referrals: Marcus Wills MD [Primary Care Provider] - Discharge Diet: Usual diet Discharge Activity: Resume usual activity Patient Instructions: Opioid Safety Coding Level of Care Code ED Spinning Machine Tender for Sheila Fwd Exam Comprehensive
[2022-02-23 07:56] VITALS: BP 113/65; PULSE 91; RESP 16; TEMP 36.7; O2SAT 95
--- NOTE | 2022-02-23 08:02 | PC.NURSE ---
Had covid in october 2021
[2022-02-23 08:15] VITALS: BP 118/64; PULSE 91; RESP 24; O2SAT 96
--- NOTE | 2022-02-23 08:49 | ECG_ITS ---
[facility] Test Date: 2022-02-23 Pat Name: Laila Mcclain Department: Room: Gender: Female Vapor Coater: : 1980 Requested By: William Gasca Order Number: [id number] Edu MD: Jack Troy M.D. Measurements Intervals [place] Rate: 84 P: 23 [place]: 146 QRS: 26 QRSD: 92 T: 45 QT: 364 QTc: 431 Interpretive Statements SINUS RHYTHM Compared to ECG 02/23/2022 07:47:31 No significant changes Electronically Signed On 02-23-2022 20:48:58 CDT by Jack Troy M.D. [id number]
[2022-02-23 09:00] VITALS: BP 115/88; PULSE 103; RESP 16; O2SAT 96
[2022-02-23 09:05] LABS: Basophils % 0.3 %; Eosinophils # 0.2 10^3/uL (0.0-0.8); Eosinophils % 2.4 %; Hematocrit 39.6 % (37.0-47.0); Hemoglobin 12.8 g/dL (11.5-15.3); Lymphocytes # 1.5 10^3/uL (0.8-4.8); Lymphocytes % 15.6 %; Mean Corpuscular HGB Conc 32.3 g/dL (30.0-36.0); Mean Corpuscular Hemoglobin 28.3 pg (28.0-34.0); Mean Corpuscular Volume 87.4 fl (81-99); Mean Platelet Volume 10.1 fL (7.4-10.4); Monocytes # 0.5 10^3/uL (0.2-0.9); Monocytes % 4.9 %; Neutrophils # 7.37 10^3/uL (1.8-7.7); Neutrophils % 76.4 %; Nucleated Red Blood Cells % 0 %; Platelet Count 258 10^3/cmm (130-400); Red Blood Count 4.53 10^6/uL (4.1-5.3); Red Cell Distribution Width 14.8 % (12.1-15.1); White Blood Count 9.7 10^3/uL (4.0-10.0)
[2022-02-23 09:09] LABS: Alanine Aminotransferase 23 U/L (0-33); Albumin Level 3.8 g/dL (3.5-5.2); Alkaline Phosphatase 103 IU/L (35-105); Anion Gap 13.9 (5-19); Aspartate Amino Transferase 16 U/L (0-32); Blood Urea Nitrogen 11 mg/dL (6-20); Calcium 8.1 mg/dL (8.5-10.5); Carbon Dioxide 26 mmol/L (22-29); Chloride 98 mmol/L (98-107); Globulin 2.7 g/dL (1.3-4.6); Glomerular Filtration Rate 134.7 mL/min (90-130); Glucose 228 mg/dL (65-115); Osmolality Calculated 285 mOsm/kg (285-295); Potassium 3.9 mmol/L (3.5-5.1); Sodium 134 mmol/L (136-145); Total Bilirubin 0.3 mg/dL (0.15-1.2); Total Protein 6.5 g/dL (6.6-8.7)
[2022-02-23 09:10] LABS: Troponin(5th) Baseline 7 ng/L (0-10)
--- NOTE | 2022-02-23 09:11 | XRR_ITS ---
PROCEDURE INFORMATION: Exam: XR Chest Exam date and time: 02/23/2022 9:16 AM Age: 41 years old Clinical indication: Cough and dyspnea; Additional info: Dyspnea/cough TECHNIQUE: Imaging protocol: XR of the chest. Views: 1 view. COMPARISON: CR XR chest 1V portable [id number] 08/02/2021 4:05 AM FINDINGS: Lungs: Unremarkable. No consolidation. Pleural spaces: Unremarkable. No pleural effusion. No pneumothorax. Heart/Mediastinum: Unremarkable. No cardiomegaly. Bones/joints: Unremarkable. XR/XR chest 1V portable [id number] IMPRESSION: No acute findings.
--- NOTE | 2022-02-23 10:49 | ECG_ITS ---
[facility] Test Date: 2022-02-23 Pat Name: Laila Mcclain Department: Room: Gender: Female Education Counselor: : 1980 Requested By: William Gasca Order Number: [id number] Edu MD: Jack Troy M.D. Measurements Intervals [place] Rate: 92 P: 33 ME: 142 QRS: 38 QRSD: 91 T: 47 QT: 352 QTc: 437 Interpretive Statements SINUS RHYTHM Compared to ECG 08/02/2021 05:40:56 No significant changes Electronically Signed On 02-23-2022 20:55:35 CDT by Jack Troy M.D. [email or web address] memorial hospitalClandestine Developmentcommunity regional medical centerThe [facility] [employer]/store/[id number]
[2022-02-23 11:27] LABS: Troponin 5 2HR Delta -1 ABS# (0-10)
[2022-02-23 11:41] VITALS: BP 116/54; PULSE 66; RESP 18; TEMP 36.6; O2SAT 99
== END 2022-02-23 11:43 | disposition home or self-care (01) ==
PROVIDERS: Emergency Provider Family Medicine; PCP Family Medicine
DX: R07.89 Other chest pain (principal); F17.210 Nicotine dependence, cigarettes, uncomplicated
CPT/HCPCS: 71045; 80053; 84484; 85025; 93005; 99284

== ENCOUNTER → 2022-03-04 09:40 | Outpatient (BNVA) | payer MEDICARE, MEDICAID, SELFPAY ==
[2021-12-24 14:27] VITALS: BP 150/89; BMI 60.4
== END ==
PROVIDERS: PCP Family Medicine; Visit Provider Internal Medicine Critical Care Medicine
DX: J41.0 Simple chronic bronchitis (principal); J98.4 Other disorders of lung; G47.33 Obstructive sleep apnea (adult) (pediatric); F17.210 Nicotine dependence, cigarettes, uncomplicated; R06.02 Shortness of breath
CPT/HCPCS: 36415; 82785; 86003; 99214

== ENCOUNTER → 2022-04-05 14:50 | Outpatient (BNVA) | payer MEDICARE, MEDICAID, SELFPAY ==
[2021-12-24 14:27] VITALS: BP 150/89; BMI 60.4
== END ==
PROVIDERS: PCP Family Medicine; Visit Provider Internal Medicine Cardiovascular Disease
DX: R07.9 Chest pain, unspecified (principal); R06.00 Dyspnea, unspecified; I10 Essential (primary) hypertension; F17.210 Nicotine dependence, cigarettes, uncomplicated; G47.33 Obstructive sleep apnea (adult) (pediatric); E11.9 Type 2 diabetes mellitus without complications; E66.01 Morbid (severe) obesity due to excess calories; Z68.44 Body mass index [BMI] 60.0-69.9, adult; Z79.01 Long term (current) use of anticoagulants; R06.02 Shortness of breath
CPT/HCPCS: 36415; 80048; 85025; 85610; 99214; 99215

== ENCOUNTER → 2022-04-07 08:37 | Outpatient (BNVA) | payer MEDICARE, MEDICAID, SELFPAY ==
[2021-12-24 14:27] VITALS: BP 150/89; BMI 60.4
== END ==
PROVIDERS: PCP Family Medicine; Visit Provider Nurse Practitioner
DX: F60.3 Borderline personality disorder (principal); F43.12 Post-traumatic stress disorder, chronic; F17.210 Nicotine dependence, cigarettes, uncomplicated
CPT/HCPCS: 99214

== ENCOUNTER 2022-04-13 06:38 | Outpatient (CLI) | payer MEDICARE, MEDICAID, SELFPAY ==
[2021-12-24 14:27] VITALS: BP 150/89; BMI 60.4
[2022-04-13] VITALS (28 sets, daily range): BP systolic 115–144; BP diastolic 69–101; PULSE 71–85; RESP 8–28; TEMP 36.5–36.9; O2SAT 92–97; BMI 61.5
[2022-04-13] MEDS: diphenhydrAMINE 50 mg Capsule PO (07:15)
--- NOTE | 2022-04-13 07:30 | XACV_ITS ---
Exam Room: [facility] Ht: 173 cm Wt: 184 kg BSA: 3.09 m2 Gender: Female : 1980 Any Known Allergies: Morphine Exam Priority: Routine Procedure(s): Procedure Description: Diagnostic procedure Procedure Description: Coronary Angiography Diagnostic Cath Status: Elective Diagnostic Findings * No disease noted in the Left Main, Left Anterior Descending, Right, or Circumflex coronary arteries. * Coronary angiography shows right dominance. Conclusions 1. No disease noted in the Left Main, Left Anterior Descending, Right, or Circumflex coronary arteries. Recommendations * Continue current medical management and risk factor modification. Clinical Evaluation EBL: 5mL-10mL Procedural Details Procedure Consent Obtained. Admit Source: Out Patient. Pre-Procedure Time Out. Identified patient by full name and date of as verbalized by the patient/guarantor. Does the consent match the physician's order: Yes. Accurate & Complete Informed Consent: Yes. Inpatient/Outpatient History & Physical on Chart: Yes. If H&P is completed, is and addenduem needed: No; If yes, is the addendum complete: No. Visualize and Verify Site with Patient/Guarantor: N/A. Relevant Radiology Images available: N/A. The risks, benefits, and alternatives of sedation and/or procedure were discussed by physician. The patient agrees to continue. Procedure started. Ocean Fishing Guide Indications: Worsening Angina. [facility] Clinical Fraility Score: 3: Managing Well. Chest Pain Symptom Assessment: Atypical Angina Symptoms. Correct patient, site and procedure confirmed by cath team. Current diagnosis: Chest Pain. PERRLA. Strong, equal hand deputy controller bilaterally. Lungs clear x 5 lobes. IV Site on Arrival: 20 gauge in the right anticubital. IV Fluids: 0.9% NaCl at KVO. 0 mL infused prior to woods laborer. IV Site on Arrival: 20 gauge in the left anticubital. Pre Procedural Pulses: bilateral radial was 3+. Pre Procedural Pulses: bilateral dorsalis pedis was 2+. Pre Procedural Pulses: bilateral posterior tibial was 1+. Oxygen started at 2liters/min via nasal canula. right radial was prepped with chloroprep then draped in the usual sterile fashion. Physician notified. Baseline sample Acquired. HR: 72 BPM. Physician arrived. Physician scrubbed in. Immediate Pre-Procedure Time Out. Correct Patient: Yes; Correct Procedure: Yes; Correct Site: Yes; Correct Patient Position: Yes; Correct Supplies: Yes; Dried Flammable Prep: Yes; Blood Products Available: No;. Lidocaine 1% infiltrated to the right radial. Arterial access obtained. A 5 turkmen TIG catheter in over wire. Wire out. Multiple views taken of left coronary artery. Catheter redirected to the RCA. Multiple views taken of right coronary artery. Dr. Troy notified by phone to review films. attempted to cross valve with TIG catheter over standard wire. Catheter removed over the standard wire. Physician scrubbed out. A TR Band was successful obtaining hemostatsis at the Right Radial artery insertion site. Post Procedure: Pulses reassessed and unchanged. PERRLA. Strong, equal hand deputy controller bilaterally. No VTE prophylaxis required. Medication's Wasted: Nitro = 49.8 mg. Medication's Wasted: Heparin = 1000 unit. Total IV fluids: 61 mL. Complications: None. Estimated blood loss: 5mL-10mL. Responsiveness - Normal response to verbal stimuli; alert and oriented, PERRLA. Airway - Unaffected, no intervention required; spontaneous ventilation. Circulation: W/N/L, pulses unchanged. Nausea/Vomiting: N/A. Post-op diagnosis: Non-obstructive CAD. Procedure completed. Patient transferred by wheelchair to 1st floor. Access Site Site: Right Radial artery Sheath Size: 6 Fr Hemostasis Method: TR Band Hemostasis Success: Successful Procedure Medications Start: 8:28 AM Stop: 8:28 AM Medication: Fentanyl Amount: 50 mcg Route: I.V. Start: 8:28 AM Stop: 8:28 AM Medication: Versed Amount: 1 mg Route: I.V. Start: 8:39 AM Stop: 8:39 AM Medication: Nitrogylcerin Amount: 200 mcg Route: I.A. Start: 8:44 AM Stop: 8:44 AM Medication: Heparin Amount: 5000 units Route: I.V. Start: 8:56 AM Stop: 8:56 AM Medication: Fentanyl Amount: 25 mcg Route: I.V. Start: 8:35 AM Stop: 8:35 AM Medication: Versed Amount: 1 mg Route: I.V. Start: 8:45 AM Stop: 8:45 AM Medication: Versed Amount: 1 mg Route: I.V. I, the attending physician, have reviewed and verified all procedure medications. Yes, all medications given per verbal order History/Risk Factors Hypertension: Yes Dyslipidemia: No Peripheral Arterial Disease (PAD): No Myocardial Infarction (MS): No Obesity: Yes Renal Disease: No Prior Interventions PCI: No CABG: No Valve Surgery: No Report Signatures Finalized by Samara Hopson MD on 04/13/2022 09:16 AM
--- NOTE | 2022-04-13 08:30 | W.PM.OPSUD ---
Surgery/Procedure H&P Update DATE OF PROCEDURE: April 13, 2022 DATE H&P PERFORMED: 04/05/22 H&P UPDATE INFORMATION: I have reviewed H&P completed within last 30 days, I have examined patient prior to procedure and No changes to prior documentation PREOP DIAGNOSIS: Chest pain, exertional SOB PRIMARY INDICATION FOR PROCEDURE: Chest pain and exertional SOB inspite of normal stress test PLANNED PROCEDURE: Operation Date: 04/13/22 08:30 Proposed Procedures p Cardiac Catheterization(Left) - Samara Hopson MD PATIENT REASSESSED PRIOR TO SEDATION, WITH NO CHANGE NOTED: Yes PHYSICAL EXAM: alert, oriented x 3, clear to auscultation bilaterally and regular rate & rhythm AIRWAY EVAL/ANESTHESIA PLAN: normal airway, ASA III, Monitored Anesthesia, Local Anesthesia, Risks, benefits & alternatives of sedation and/or procedure discussed and Patient agrees to continue as planned
--- NOTE | 2022-04-13 09:35 | PC.NURSE ---
received from cardiac specialist employee labor relations at 0915.report received.pt is alert and oriented x 4 .denies pain.sr on monitor.oriented to room environment.right wrist with tr band on and inflated.right hand is warm to touch and with brisk capillary refill.palpable radial pulse noted distal to tr band.no hematoma noted.instructed in activity restrictions s/p radial artery procedure...and instructed to notify staff for any bleeding,pain,numbness,sob,or for any concerns at all.pt verb understanding of instructions.
--- NOTE | 2022-04-13 15:02 | PC.NURSE ---
tr band slowly deflated and finally removed at 1400.no hematoma noted.right hand remains warm to touch and with brisk capillary refill.palpable radial pulse noted.discharge instructions given and explained.discharged to exit..ambulatory at 1455.friend to drive pt home.
== END 2022-04-13 14:55 | disposition home or self-care (01) ==
LOC: CCL 06:42 → CSU 08:14
PROVIDERS: PCP Family Medicine; Visit Provider Internal Medicine Cardiovascular Disease
DX: R07.9 Chest pain, unspecified (principal); I10 Essential (primary) hypertension; E66.01 Morbid (severe) obesity due to excess calories; Z68.44 Body mass index [BMI] 60.0-69.9, adult; E11.40 Type 2 diabetes mellitus with diabetic neuropathy, unspecified; F17.210 Nicotine dependence, cigarettes, uncomplicated; Z79.84 Long term (current) use of oral hypoglycemic drugs; J44.9 Chronic obstructive pulmonary disease, unspecified; G47.30 Sleep apnea, unspecified
CPT/HCPCS: 36415; 93454; 96360; 99152; 99153; C1769; C1887; C1894; J1644; J2250; J3010; J3490; J7030; Q0163; Q9967

== ENCOUNTER → 2022-05-13 09:49 | Outpatient (BNVA) | payer MEDICAID, SELFPAY ==
[2021-12-24 14:27] VITALS: BP 150/89; BMI 60.4
== END ==
PROVIDERS: PCP Family Medicine; Referring Provider Family Medicine; Visit Provider Specialist
DX: R20.0 Anesthesia of skin (principal); R20.2 Paresthesia of skin
CPT/HCPCS: 95908; 95909

== ENCOUNTER → 2022-06-03 09:40 | Outpatient (BNVA) | payer MEDICARE, MEDICAID, SELFPAY ==
[2021-12-24 14:27] VITALS: BP 150/89; BMI 60.4
== END ==
PROVIDERS: PCP Family Medicine; Visit Provider Specialist
DX: G43.711 Chronic migraine without aura, intractable, with status migrainosus (principal)
CPT/HCPCS: 64615; J0585

== ENCOUNTER 2022-06-28 16:21 | Inpatient (IN) | payer MEDICARE, MEDICAID, SELFPAY ==
[2021-12-24 14:27] VITALS: BP 150/89; BMI 60.4
[2022-06-28 16:31] VITALS: BP 156/106; PULSE 87; RESP 12; TEMP 36.6; O2SAT 96; BMI 59.3
--- NOTE | 2022-06-28 16:32 | W.ED.GENADLT ---
HPI - General Adult General: Chief complaint: Psychiatric Symptoms Stated complaint: SI Time Seen by Provider: 06/28/22 16:31 History of Present Illness: HPI: [41]yo patient w/ hx of depression and PTSD presenting for depression with SI. Patient was planning to overdose but decide against it and came in to the ED for assessment. On arrival, the patient is AAOx3 and cooperative with my evaluation. No focal complaints of chest pain, shortness of breath, palpitations, N/V, focal GI/ complaints. Currently denies HI. No complaints of hallucinations. Onset: acute on chronic Duration: ongoing Location: home Severity: severe Associated symptoms: Deny chest pain, dyspnea, nausea, rash, palpitations or vomiting Review of Systems Const: Denies: fever(s) or chills Eyes: Denies: change in vision ENMT: Denies: mouth pain Card: Denies: chest pain or palpitations Resp: Denies: dyspnea or non-productive cough GI: Denies: abdominal pain, nausea, vomiting or diarrhea : Denies: dysuria Musc: Denies: extremity pain Skin/Breast: Denies: rash or new lesions Neuro: Denies: weakness in extremities Psych: Reports: depression and suicidal ideation Karan/Lymph: Denies: easy bruising PFSH ED PFSH: Medical History Borderline personality disorder Chronic bronchitis Common migraine with intractable migraine Diabetes History of COPD History of neuropathy History of restless legs syndrome Morbid obesity Nicotine dependence, cigarettes, uncomplicated Post-traumatic stress disorder, chronic Psychiatric care Sleep apnea, unspecified Surgical History History of bladder repair surgery History of endometrial ablation History of hysterectomy History of shoulder surgery History of tubal ligation Family History Brother Diabetes Mother , Acute leukemia at age 42 Cancer Father Cancer Stage IV Kidney Cancer Grandmother Diabetes maternal Grandfather Stroke maternal Social History Smoking and tobacco status: current every day smoker cigarettes Packs smoked per day: 0.5 Years cigarettes smoked: 26 [ Other cigarette details: Started 18 years] Second hand smoke exposure: Yes Smoking risk assessment/counseling performed?: Yes Alcohol intake: current Alcohol intake frequency: holidays/special occasions only Alcohol type: wine and hard liquor Counseling given: No Adopted: No Caregiver/support person: Yes (Med nurse sets up her medications) Lives independently: Yes Household members: children Housing: Manufactured/Mobile home Marital status: Number of children: 3 Number of grandchildren: 0 Highest education level completed: Associate Degree: Occupational, Technical, Vocational Program 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, 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: No Current occupational status: disabled Pets and animals: Yes Pets & animals: cat(s), dog(s) and ferret(s) History of recent travel: Yes ([facility] all over) Out of state: Yes Leisure activites: art, games and reading Sexually active: No Current gender identity: Female Carolee/Confucianism: Wicca Special carolee needs: No Agree to transfusion: Yes Financial difficulty paying for basics: Somewhat Hard Female Reproductive History: Date of last menstrual period: 08/28/18 Para: 3 Spontaneous abortions: No Physical Exam Const: COMMON NORMALS: alert HENMT: COMMON NORMALS: atraumatic HEAD & SCALP: atraumatic MOUTH: moist mucous membranes not abnormal Eye: COMMON NORMALS: EOMs intact bilaterally and conjunctivae normal CONJUNCTIVA: Yes conjunctivae normal Neck/C-Spine: COMMON NORMALS: full ROM and supple Resp: COMMON NORMALS: normal respiratory effort and clear to auscultation bilaterally AUSCULTATION: clear to auscultation bilaterally Cardio: COMMON NORMALS: regular rate RATE: regular rate GI: COMMON NORMALS: Soft to palpation and non-tender PALPATION: Yes Soft to palpation Extremity: COMMON NORMALS: full ROM Neuro: SENSORIUM/ORIENTATION: Yes alert MOTOR EXAM: No Abnormal motor strength present and Other motor observations present (no focal motor deficits) Psych: COMMON NORMALS: speech normal SPEECH: Yes normal speech MOOD & AFFECT: Yes depressed mood Course Vital Signs: Vital signs: Vital Signs Temperature 97.9 F 06/28/22 16:31 Pulse Rate 87 06/28/22 16:31 Respiratory Rate 12 06/28/22 16:31 Blood Pressure 156/106 06/28/22 16:31 Pulse Oximetry 96 06/28/22 16:31 Oxygen Delivery Me thod 06/28/22 16:31 MDM - General Adult Medical Decision Making [41]yo patient w/ hx of depression, PTSD presenting for SI with worsening depression and a plan. HDS, exam within normal limit Thoughts are linear and organized, and the patient has no AH/VH, or HI. Clinically the patient displays no overt toxidrome; they are well appearing, with low suspicion for toxic ingestion given history and exam. Symptoms unlikely 2/2 anemia, hypothyroidism, infection, or ICH. Workup: CBC, CMP, Lipase, salicylate/tylenol, HCG serum ethanol, UDS Lab findings: wnl, +opiate/marijuana in the urine [5:30pm] On reassessment, labs and workup wnl. Patient is hemodynamically stable with no acute medical complaints. Case discussed with psychiatric provider Dr. Wiley at [facility] psych inpatient with recommendation for admission Disposition: Psych Lab Data : 06/28/22 16:58 06/28/22 16:58 Laboratory Results WBC 10.6 10^3/uL (4.0-10.0) H 06/28/22 16:58 RBC 4.36 10^6/uL (4.1-5.3) 06/28/22 16:58 Hgb 12.3 g/dL (11.5-15.3) 06/28/22 16:58 Hct 40.0 % (37.0-47.0) 06/28/22 16:58 MCV 91.7 fl (81-99) 06/28/22 16:58 MCH 28.2 pg (28.0-34.0) 06/28/22 16:58 MCHC 30.8 g/dL (30.0-36.0) 06/28/22 16:58 RDW 15.4 % (12.1-15.1) H 06/28/22 16:58 Plt Count 260 10^3/cmm (130-400) 06/28/22 16:58 MPV 9.9 fL (7.4-10.4) 06/28/22 16:58 Neut % (Auto) 72.0 % 06/28/22 16:58 Lymph % (Auto) 18.3 % 06/28/22 16:58 Mayes % (Auto) 5.9 % 06/28/22 16:58 Eos % (Auto) 2.8 % 06/28/22 16:58 Baso % (Auto) 0.3 % 06/28/22 16:58 Neut # (Auto) 7.65 10^3/uL (1.8-7.7) 06/28/22 16:58 Lymph # (Auto) 2.0 10^3/uL (0.8-4.8) 06/28/22 16:58 Mayes # (Auto) 0.6 10^3/uL (0.2-0.9) 06/28/22 16:58 Eos # (Auto) 0.3 10^3/uL (0.0-0.8) 06/28/22 16:58 Baso # (Auto) 0.0 10^3/uL (0.0-0.1) 06/28/22 16:58 Nucleated RBC % (auto) 0 % 06/28/22 16:58 Nucleated RBCs # 0.0 /100WBC 06/28/22 16:58 Urine HCG, Qual Negative (Negative) 06/28/22 16:58 Urine Opiates Screen Positive ng/mL (Negative) H 06/28/22 16:58 Ur Barbiturates Screen Negative ng/mL (Negative) 06/28/22 16:58 Ur Phencyclidine Scrn Negative ng/mL (Negative) 06/28/22 16:58 Ur Amphetamines Screen Negative ng/mL (Negative) 06/28/22 16:58 U Benzodiazepines Scrn Negative ng/mL (Negative) 06/28/22 16:58 Urine Cocaine Screen Negative ng/mL (Negative) 06/28/22 16:58 U Marijuana (THC) Screen Positive ng/mL (Negative) H 06/28/22 16:58 Discharge Plan Discharge Patient Disposition: Admitted As Inpatient Clinical Impression: Depression with suicidal ideation Condition: Stable Coding Level of Care Code ED Electrophonic Engineer for Sheila Fwd Exam Comprehensive
[2022-06-28 17:04] LABS: Basophils % 0.3 %; Eosinophils # 0.3 10^3/uL (0.0-0.8); Eosinophils % 2.8 %; Hemoglobin 12.3 g/dL (11.5-15.3); Lymphocytes % 18.3 %; Mean Corpuscular HGB Conc 30.8 g/dL (30.0-36.0); Mean Corpuscular Hemoglobin 28.2 pg (28.0-34.0); Mean Corpuscular Volume 91.7 fl (81-99); Mean Platelet Volume 9.9 fL (7.4-10.4); Monocytes # 0.6 10^3/uL (0.2-0.9); Monocytes % 5.9 %; Neutrophils # 7.65 10^3/uL (1.8-7.7); Nucleated Red Blood Cells % 0 %; Platelet Count 260 10^3/cmm (130-400); Red Blood Count 4.36 10^6/uL (4.1-5.3); Red Cell Distribution Width 15.4 % (12.1-15.1); White Blood Count 10.6 10^3/uL (4.0-10.0)
[2022-06-28 17:13] LABS: Amphetamines Screen Urine Negative (Negative); Barbiturates Screen Urine Negative (Negative); Benzodiazepines Screen Urine Negative (Negative); Cocaine Screen Urine Negative (Negative); Opiate Screen Urine Positive (Negative); PCP Screen Urine Negative (Negative); THC Screen Urine Positive (Negative)
[2022-06-28 17:20] LABS: Alanine Aminotransferase 20 U/L (0-33); Albumin Level 3.7 g/dL (3.5-5.2); Alkaline Phosphatase 75 U/L (35-105); Anion Gap 13.9 (5-19); Aspartate Amino Transferase 14 U/L (0-32); Blood Urea Nitrogen 10 mg/dL (6-20); Calcium 8.9 mg/dL (8.5-10.5); Carbon Dioxide 30 mmol/L (22-29); Chloride 101 mmol/L (98-107); Globulin 2.3 g/dL (1.3-4.6); Glomerular Filtration Rate 134.7 mL/min (90-130); Glucose 122 mg/dL (65-115); Lipase 22 U/L (13-60); Osmolality Calculated 292 mOsm/kg (285-295); Potassium 3.9 mmol/L (3.5-5.1); Sodium 141 mmol/L (136-145); Total Bilirubin 0.2 mg/dL (0.15-1.2)
[2022-06-28 17:30] LABS: Acetaminophen < 5.0 ug/mL (10-30); Alcohol Level < 10 mg/dL (0-10); Salicylate < 0.3 mg/dL (3-10)
[2022-06-28 18:34] VITALS: BP 150/100; PULSE 86; RESP 18; TEMP 37.1; O2SAT 93
[2022-06-28] MEDS: ondansetron 4 MG Tablet PO (19:20)
[2022-06-28] MEDS: acetaminophen 325 mg Tablet 650 MG PO (19:20)
[2022-06-28] MEDS: pramipexole 0.25 mg Tablet PO (20:26)
[2022-06-28 22:00] VITALS: BP 153/92; PULSE 99; RESP 20; TEMP 36.9; O2SAT 95
--- NOTE | 2022-06-28 22:26 | PC.NURSE ---
PT CALLED FAMILY TO BRING HER CPAP TO FACILITY. WHEN THEY BROUGHT IT, IT DID NOT HAVE THE CORD OR WATER REQUIRED TO RUN IN. PT REPORTS, I JUST WON'T USE IT TONIGHT, I WILL HAVE THEM BRING THE REST TOMORROW. 1:1 CANCELLED TONIGHT AND WILL BE RENEWED WHEN PT HAS THE CPAP
[2022-06-29] MEDS: SUMAtriptan 25 mg Tablet 100 MG PO ×2 (03:18→15:38)
[2022-06-29 06:00] VITALS: BP 108/71; PULSE 70; RESP 18; TEMP 36.6; O2SAT 95
[2022-06-29] MEDS: ibuprofen 800 mg tablet PO ×2 (07:50→15:38)
[2022-06-29] MEDS: acetaminophen 325 mg Tablet 650 MG PO ×2 (07:51→15:38)
[2022-06-29] MEDS: hyDROXYzine 25 mg Capsule 50 MG PO (07:51)
[2022-06-29] MEDS: metoprolol succinate ER (24 HR) 100 mg Tablet PO ×2 (07:52→17:43)
[2022-06-29] MEDS: atorvastatin 40 mg Tablet 80 MG PO (07:52)
[2022-06-29] MEDS: metformin 500 mg Tablet 1000 MG PO (07:53)
[2022-06-29] MEDS: ARIPiprazole 10 mg Tablet PO (07:53)
[2022-06-29] MEDS: hydroCHLOROthiazide 25 mg Tablet 18.75 MG PO (07:53)
[2022-06-29 07:55] VITALS: BP 108/71
[2022-06-29] MEDS: venlafaxine ER (24HR) 75 mg Capsule 225 MG PO (07:55)
[2022-06-29] MEDS: losartan 50 mg Tablet 75 MG PO (07:55)
[2022-06-29] MEDS: cetirizine 10 mg Tablet PO (07:56)
[2022-06-29] MEDS: pantoprazole DR 40 mg Tablet PO (07:56)
[2022-06-29 08:00] VITALS: PULSE 70; RESP 18; O2SAT 95
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
[2022-06-29 14:00] VITALS: BP 104/64; PULSE 70; RESP 17; TEMP 36.6; O2SAT 93
[2022-06-29 21:40] VITALS: PULSE 76; RESP 16; O2SAT 94
[2022-06-29] MEDS: pramipexole 0.25 mg Tablet PO (21:55)
[2022-06-29] MEDS: trazodone 50 mg Tablet PO (21:55)
[2022-06-29] MEDS: OLANZapine 5 mg ODT PO (21:55)
[2022-06-29 22:00] VITALS: BP 136/78; PULSE 78; RESP 16; TEMP 36.4; O2SAT 96
--- NOTE | 2022-06-29 23:11 | NUR.SHIFT ---
at appx 2015 pt presents calm and cooperative with assessment at bedside. pt reports 4/10 depression and 3/10 anxiety. pt has flat affect and makes poor eye contact. denies si/hi/avh at this time. when asked what kind of mood she is in, pt reports I don't know . appearance of anhedonia at this time. pt took meds as prescribed, but had to be coaxed several times to come to nurse's station to get them. pt decided to lie down, so 1:1 initiated for cpap at bedside.
[2022-06-30] MEDS: hyDROXYzine 25 mg Capsule 50 MG PO ×2 (02:13→11:51)
[2022-06-30] MEDS: acetaminophen 325 mg Tablet 650 MG PO ×3 (02:13→21:13)
--- NOTE | 2022-06-30 02:47 | PC.NURSE ---
pt told another nurse that she was having some shoulder/chest pain. vss. ibuprofen and vistaril given for symptom relief. patient reassessment done and she reports, it is just hurting a little bit. it feels like I slept wrong on it referring to her shoulder. Pt educated to let staff know if pain worsens, changes or if she becomes short of air. pt verbalized understanding. no diaphoresis or nausea. q15 min safety checks continued in milieu.
[2022-06-30 06:00] VITALS: BP 129/74; PULSE 62; RESP 16; TEMP 36.4; O2SAT 92
[2022-06-30 08:46] VITALS: PULSE 70; RESP 19; O2SAT 90
[2022-06-30 10:02] VITALS: BP 129/74
[2022-06-30] MEDS: losartan 50 mg Tablet 75 MG PO (10:02)
[2022-06-30] MEDS: venlafaxine ER (24HR) 75 mg Capsule 225 MG PO (10:03)
[2022-06-30] MEDS: hydroCHLOROthiazide 25 mg Tablet 18.75 MG PO (10:04)
[2022-06-30] MEDS: pantoprazole DR 40 mg Tablet PO (10:04)
[2022-06-30] MEDS: buPROPion XL (24 HR) 150 mg Tablet PO (10:04)
[2022-06-30] MEDS: ARIPiprazole 10 mg Tablet PO (10:04)
[2022-06-30] MEDS: cetirizine 10 mg Tablet PO (10:04)
[2022-06-30] MEDS: atorvastatin 40 mg Tablet 80 MG PO (10:05)
[2022-06-30] MEDS: metformin 500 mg Tablet 1000 MG PO (10:05)
[2022-06-30] MEDS: metoprolol succinate ER (24 HR) 100 mg Tablet PO ×2 (10:06→17:24)
[2022-06-30] MEDS: SUMAtriptan 25 mg Tablet 100 MG PO (11:52)
[2022-06-30 14:00] VITALS: BP 107/69; PULSE 77; RESP 17; TEMP 36.6; O2SAT 94
--- NOTE | 2022-06-30 17:02 | W.PM.NPUPNS ---
Subjective NPU Subjective: Laila is a 41-year-old white female with borderline personality disorder major depressive disorder PTSD admitted with suicidal ideation. Patient reports no side effects from the Wellbutrin today. She reports that she is feeling better and reported that her chronic difficulties with managing acute distress and her feelings of loneliness had led her to decompensate. She had reported that the suicidal thoughts were less intense. She denied any feelings of hopelessness today. She had reported continued low energy and reported excessive fatigue. She reported a history of sleep apnea and reported at times being noncompliant with his treatment. Mental Status Exam MSE Comments: She is obese white female who was pleasant and cooperative on interview. There was mild psychomotor retardation appreciated. Her speech was normal in regards to rate rhythm and prosody. Her hygiene was fair. There was no evidence of abnormal involuntary motor movements tics or tremors. Her attention span appeared adequate. Her recent and remote memory appeared grossly intact. Her mood was described as depressed. Her affect was mood congruent and restricted in range. There was no evidence of any delusional thinking. She did not appear to be responding to internal stimuli. Her insight was fair, her judgment is fair, her impulse control was fair at this time. She had reported no suicidal thoughts at this time. There was no evidence of homicidal ideation. Vitals/I&O/Wt Last Vital Signs Temp 97.8 F 06/30/22 14:00 Pulse 77 06/30/22 14:00 Resp 17 06/30/22 14:00 BP 107/69 06/30/22 14:00 Pulse Ox 94 06/30/22 14:00 O2 Del Method 06/30/22 08:46 Data NPU : 06/28/22 16:58 06/28/22 16:58 A&P Assessment and plan (1) Major depressive disorder: Status: Acute (2) Borderline personality disorder: Status: Chronic (3) Post-traumatic stress disorder, chronic: Status: Chronic (4) Sleep apnea, unspecified: Status: Acute Qualifiers: Sleep apnea type: unspecified type Qualified Code(s): G47.30 - Sleep apnea, unspecified Plan This is a 41-year-old white female with borderline personality disorder posttraumatic stress disorder and major depressive disorder recurrent admitted with suicidal ideation. 1. Continue effexor xr 225mg in am, initiated wellbutrin xl 150mg in am, continue Abilify 10mg daily . 2. Encourage individual, group and milieu therapy 3. Continue q-15 minute check for safety 4. Recommend sober living treatment at the highest level of care to which the patient is willing to commit. Involuntary Hold Information 96 Hour Hold: 96 Hour Involuntary Admission: No Attestations NPU Medical Necessity Statement*: Inpatient hospitalization is medically necessary and the clinically appropriate intervention at this time. We will monitor medications and make changes as indicated. Patient will be in the hospital for over two midnights. Likely length of stay is three to five days. Coding Level of Care Code Established Pt Acute Analytics Associate for Chg Fwd Patient Type Established History Problem Focused Exam Problem Focused Medical Decision Making Straight Forward Diagnoses Major depressive disorder F32.9 Borderline personality disorder F60.3 Post-traumatic stress disorder, chronic F43.12 Sleep apnea, unspecified G47.30 Sleep apnea type: unspecified type
[2022-06-30 19:57] VITALS: BP 108/67; PULSE 71; RESP 14; O2SAT 95
[2022-06-30 20:52] VITALS: PULSE 80; RESP 16; O2SAT 98
[2022-06-30] MEDS: pramipexole 0.25 mg Tablet PO (21:08)
[2022-07-01] MEDS: ibuprofen 800 mg tablet PO (03:09)
[2022-07-01 06:00] VITALS: BP 137/99; PULSE 82; RESP 16; TEMP 36.5; O2SAT 96
[2022-07-01] MEDS: metformin 500 mg Tablet 1000 MG PO (09:15)
[2022-07-01] MEDS: losartan 50 mg Tablet 75 MG PO (09:15)
[2022-07-01] MEDS: cetirizine 10 mg Tablet PO (09:15)
[2022-07-01] MEDS: metoprolol succinate ER (24 HR) 100 mg Tablet PO ×2 (09:16→17:49)
[2022-07-01] MEDS: venlafaxine ER (24HR) 75 mg Capsule 225 MG PO (09:16)
[2022-07-01] MEDS: hydroCHLOROthiazide 25 mg Tablet 18.75 MG PO (09:16)
[2022-07-01] MEDS: ARIPiprazole 10 mg Tablet PO (09:17)
[2022-07-01] MEDS: buPROPion XL (24 HR) 150 mg Tablet PO (09:17)
[2022-07-01] MEDS: atorvastatin 40 mg Tablet 80 MG PO (09:17)
[2022-07-01] MEDS: pantoprazole DR 40 mg Tablet PO (09:17)
[2022-07-01] MEDS: albuterol 8 gm MDI 2 PUFF INHALATION ×2 (09:46→20:11)
[2022-07-01 09:47] VITALS: PULSE 82; RESP 16; O2SAT 96
--- NOTE | 2022-07-01 11:32 | PC.NURSE ---
AM ASSESSMENT PT APPEARS CALM AND COOPERATIVE. PT IS UPSET DUE TO HER MEDICATIONS NOT BEING STARTED. REASSURED PT THAT THIS RN WOULD CHECK INTO IT. PT VERY GRATEFUL. PT DENIES SI/HI AND AVH AT THIS TIME. THIS RN CALLED [facility] AND VERIFIED HYDROCODONE AND ATIVAN. PT DOES HAVE CURRENT SCRIPTS. NOTIFIED DR. MEDINA. NEW ORDERS RECEIVED TO START HYDROCODONE 5/325MG PO Q 6 HOURS PRN PAIN AND ATIVAN 1 MG PO BID PRN ANXIETY. ORDERS WERE PLACED AND PT WAS NOTIFIED OF NEW ORDERS. PT IS VERY PLEASED AND THANKFUL AT THIS TIME.
--- NOTE | 2022-07-01 11:32 | W.PM.NPUPNS ---
Subjective NPU Subjective: Patient presents today reporting that things are going better overall and that she is adjusting to medication changes did see Dr. Wiley initiated. She reports openness to exploring discharge options with the treatment team. We discussed likely discharge in the morning as long as stable housing and resources were identified and we had her outpatient appointments in place. Mental Status Exam MSE Comments: This is a morbidly obese white female in hospital scrubs with adequate grooming and eye contact. No abnormal movements except for mild psychomotor retardation. Cooperative with exam in no acute distress. Speech was normal rate and volume. Mood described as much better than I got here. Affect euthymic. Thought process organized. Thought content: Patient denied suicidal or homicidal ideation, there were no delusions reported or noted, she denied any auditory or visual hallucinations. Attention and concentration were intact and memory appeared reliable but none were formally tested. She alert and oriented x3. Insight and judgment appeared fair impulse control improving. Vitals/I&O/Wt Last Vital Signs Temp 97.7 F 07/01/22 06:00 Pulse 82 07/01/22 09:47 Resp 16 07/01/22 09:47 BP 137/99 07/01/22 06:00 Pulse Ox 96 07/01/22 09:47 O2 Del Method 07/01/22 09:47 Data NPU : 06/28/22 16:58 06/28/22 16:58 A&P Assessment and plan (1) Major depressive disorder: Status: Acute (2) Borderline personality disorder: Status: Chronic (3) Post-traumatic stress disorder, chronic: Status: Chronic (4) Sleep apnea, unspecified: Status: Acute Qualifiers: Sleep apnea type: unspecified type Qualified Code(s): G47.30 - Sleep apnea, unspecified Plan This is a 41-year-old white female with borderline personality disorder posttraumatic stress disorder and major depressive disorder recurrent admitted with suicidal ideation. 1. Continue effexor xr 225mg in am, initiated wellbutrin xl 150mg in am, continue Abilify 10mg daily . 2. Encourage individual, group and milieu therapy 3. Continue q-15 minute check for safety 4. Recommend sober living treatment at the highest level of care to which the patient is willing to commit. Plan for discharge in the morning. Involuntary Hold Information 96 Hour Hold: 96 Hour Involuntary Admission: No Attestations NPU Medical Necessity Statement*: Inpatient hospitalization is medically necessary and the clinically appropriate intervention at this time. We will monitor medications and make changes as indicated. Likely length of stay is 1-3 days. Coding Level of Care Code Acute Nurse'S Aides Teacher for g Fwd Diagnoses Major depressive disorder F32.9 Borderline personality disorder F60.3 Post-traumatic stress disorder, chronic F43.12 Sleep apnea, unspecified G47.30 Sleep apnea type: unspecified type
[2022-07-01] MEDS: HYDROcodone-acetaminophen 5-325 mg Tablet 1 TAB PO ×2 (12:36→20:16)
[2022-07-01 14:00] VITALS: BP 153/84; PULSE 86; RESP 17; TEMP 36.4; O2SAT 95
[2022-07-01] MEDS: LORazepam 1 mg Tablet PO (18:20)
[2022-07-01 20:10] VITALS: PULSE 89; RESP 16; O2SAT 98
[2022-07-01] MEDS: pramipexole 0.25 mg Tablet PO (20:16)
[2022-07-01] MEDS: trazodone 50 mg Tablet PO (20:17)
[2022-07-01 21:48] VITALS: BP 95/61; PULSE 80; RESP 14; TEMP 37; O2SAT 95
[2022-07-02] MEDS: calcium carbonate 500 mg Chew Tablet PO (00:57)
[2022-07-02] MEDS: HYDROcodone-acetaminophen 5-325 mg Tablet 1 TAB PO ×2 (03:03→11:27)
[2022-07-02 06:00] VITALS: BP 121/86; PULSE 89; RESP 16; TEMP 36.3; O2SAT 93
[2022-07-02] MEDS: venlafaxine ER (24HR) 75 mg Capsule 225 MG PO (08:04)
[2022-07-02 08:05] VITALS: BP 121/86
[2022-07-02] MEDS: metformin 500 mg Tablet 1000 MG PO (08:05)
[2022-07-02] MEDS: hydroCHLOROthiazide 25 mg Tablet 18.75 MG PO (08:05)
[2022-07-02] MEDS: ARIPiprazole 10 mg Tablet PO (08:05)
[2022-07-02] MEDS: losartan 50 mg Tablet 75 MG PO (08:05)
[2022-07-02] MEDS: pantoprazole DR 40 mg Tablet PO (08:05)
[2022-07-02] MEDS: buPROPion XL (24 HR) 150 mg Tablet PO (08:05)
[2022-07-02] MEDS: atorvastatin 40 mg Tablet 80 MG PO (08:06)
[2022-07-02] MEDS: cetirizine 10 mg Tablet PO (08:06)
[2022-07-02] MEDS: metoprolol succinate ER (24 HR) 100 mg Tablet PO (08:07)
--- NOTE | 2022-07-02 08:35 | PC.NURSE ---
Nursing Assessment Patient sitting on bench near nursing station, alone. Patient is calm and cooperative. Patient states she slept well last night. States no thoughts of suicide or homicide at this time. Also denies any auditory or visual hallucinations. Patient denies any anxiety this morning as well. Patient does state, I want to go home. I just want the doctor to get here because I've got stuff to do. She stated she does have pain rated at a 7 on a 0-10 scale in her achilles tendon. She said this is normal for her and that she has an appointment with a doctor. States she already took medication this morning to alleviate the pain.
[2022-07-02 08:39] VITALS: PULSE 87; RESP 16; O2SAT 94
[2022-07-02] MEDS: albuterol 8 gm MDI 2 PUFF INHALATION (08:39)
[2022-07-02] MEDS: LORazepam 1 mg Tablet PO (09:58)
--- NOTE | 2022-07-02 09:58 | PC.NURSE ---
PRN MEDICATION PT UP AT NURSES STATION YELLING AND CRYING OUT, I WANT TO GO HOME, PLEASE TELL THE TO GET HERE SO I CAN LEAVE. PT WAS VERBALLY REDIRECTED AND INFORMED THAT WOULD BE IN SHORTLY AND IF HE THOUGHT SHE WAS READY TO DC THEN HE WOULD PLACE THE ORDER.. PT THEN CONTINUED TO CRY WHILE WAILING OUT LOUD HOW SHE WOULD LIKE TO LEAVE THEN REQUESTED ATIVAN. ATIVAN MG PO WAS GIVEN ORDERED.
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
[2022-07-02 12:42] VITALS: BP 121/86; PULSE 87; RESP 16; TEMP 36.3; O2SAT 94
--- NOTE | 2022-07-02 13:05 | DCPLANNER ---
IMM completed with with pt on 07/02/22 @ 4625. Pt was given a copy of rights.
== END 2022-07-02 13:47 | disposition home or self-care (01) | DRG 881 ==
LOC: ER 16:45 → NP 18:05
PROVIDERS: Admitting Provider Psychiatry & Neurology Psychiatry; Emergency Provider Emergency Medicine; PCP Family Medicine; Visit Provider Psychiatry & Neurology Psychiatry
DX: F32.9 Major depressive disorder, single episode, unspecified (principal); Z68.43 Body mass index [BMI] 50.0-59.9, adult; F60.3 Borderline personality disorder; F43.12 Post-traumatic stress disorder, chronic; Z81.8 Family history of other mental and behavioral disorders; J42 Unspecified chronic bronchitis; E11.9 Type 2 diabetes mellitus without complications; G62.9 Polyneuropathy, unspecified; G25.81 Restless legs syndrome; E66.01 Morbid (severe) obesity due to excess calories; F17.210 Nicotine dependence, cigarettes, uncomplicated; G47.30 Sleep apnea, unspecified
CPT/HCPCS: 80053; 80306; 80307; 81025; 83690; 85025; 94640; 97150; 97165; 99285; J3535; Q0162

== ENCOUNTER → 2022-07-21 07:54 | Outpatient (BNVA) | payer MEDICARE, MEDICAID, SELFPAY ==
[2021-12-24 14:27] VITALS: BP 150/89; BMI 60.4
== END ==
PROVIDERS: PCP Family Medicine; Visit Provider Podiatrist Foot & Ankle Surgery
DX: M76.61 Achilles tendinitis, right leg (principal)
CPT/HCPCS: 73630; 99213; 99214

== ENCOUNTER 2022-07-21 13:28 | Outpatient (CLI) | payer MEDICARE, MEDICAID, SELFPAY ==
[2021-12-24 14:27] VITALS: BP 150/89; BMI 60.4
== END 2022-07-21 13:29 | disposition home or self-care (01) ==
LOC: SPT 13:31
PROVIDERS: PCP Family Medicine; Visit Provider Podiatrist Foot & Ankle Surgery
DX: Z46.89 Encounter for fitting and adjustment of other specified devices (principal); M79.671 Pain in right foot
CPT/HCPCS: 97760; L4397

== ENCOUNTER → 2022-08-02 15:02 | Outpatient (BNVA) | payer MEDICARE, MEDICAID, SELFPAY ==
[2021-12-24 14:27] VITALS: BP 150/89; BMI 60.4
== END ==
PROVIDERS: PCP Family Medicine; Visit Provider Internal Medicine Cardiovascular Disease
DX: R07.9 Chest pain, unspecified (principal); R06.09 Other forms of dyspnea; I10 Essential (primary) hypertension; F17.210 Nicotine dependence, cigarettes, uncomplicated
CPT/HCPCS: 99214

== ENCOUNTER 2022-08-05 08:23 | Outpatient (RCR) | payer MEDICARE, MEDICAID, SELFPAY ==
[2021-12-24 14:27] VITALS: BP 150/89; BMI 60.4
== END 2022-08-23 23:59 | disposition home or self-care (01) ==
LOC: SPT 08:23
PROVIDERS: PCP Family Medicine; Visit Provider Podiatrist Foot & Ankle Surgery
DX: M76.61 Achilles tendinitis, right leg (principal)
CPT/HCPCS: 97035; 97110; 97140; 97161

== ENCOUNTER 2022-08-24 06:00 | Outpatient (RCR) | payer MEDICARE, MEDICAID, SELFPAY ==
[2021-12-24 14:27] VITALS: BP 150/89; BMI 60.4
== END 2022-09-22 23:59 | disposition home or self-care (01) ==
LOC: SPT 06:00
PROVIDERS: PCP Family Medicine; Visit Provider Podiatrist Foot & Ankle Surgery
DX: M76.61 Achilles tendinitis, right leg (principal)
CPT/HCPCS: 97035; 97110; 97140

== ENCOUNTER → 2022-09-01 08:06 | Outpatient (BNVA) | payer MEDICARE, MEDICAID, SELFPAY ==
[2021-12-24 14:27] VITALS: BP 150/89; BMI 60.4
== END ==
PROVIDERS: PCP Family Medicine; Visit Provider Podiatrist Foot & Ankle Surgery
DX: M76.61 Achilles tendinitis, right leg (principal)
CPT/HCPCS: 99214

== ENCOUNTER → 2022-09-03 10:29 | Outpatient (BNVA) | payer MEDICARE, MEDICAID, SELFPAY ==
[2021-12-24 14:27] VITALS: BP 150/89; BMI 60.4
== END ==
PROVIDERS: PCP Family Medicine; Visit Provider Internal Medicine Pulmonary Disease
DX: G47.33 Obstructive sleep apnea (adult) (pediatric) (principal); R06.02 Shortness of breath; J82.83 Eosinophilic asthma; J98.4 Other disorders of lung; E66.01 Morbid (severe) obesity due to excess calories; Z87.09 Personal history of other diseases of the respiratory system; Z68.43 Body mass index [BMI] 50.0-59.9, adult; Z87.891 Personal history of nicotine dependence
CPT/HCPCS: 99214

== ENCOUNTER 2022-09-23 06:00 | Outpatient (RCR) | payer MEDICARE, MEDICAID, SELFPAY ==
[2021-12-24 14:27] VITALS: BP 150/89; BMI 60.4
== END 2022-10-23 23:59 | disposition home or self-care (01) ==
LOC: SPT 06:00
PROVIDERS: PCP Family Medicine; Visit Provider Podiatrist Foot & Ankle Surgery
DX: M76.61 Achilles tendinitis, right leg (principal)
CPT/HCPCS: 97110; 97140

== ENCOUNTER 2022-09-29 08:37 | Outpatient (CLI) | payer MEDICARE, MEDICAID, SELFPAY ==
[2021-12-24 14:27] VITALS: BP 150/89; BMI 60.4
--- NOTE | 2022-09-29 08:45 | MR_ITS ---
WS: [id number] MRI RIGHT ANKLE NONCONTRAST TECHNIQUE: Sagittal proton density, sagittal STIR, axial proton density, axial T1, axial T2 fat sat, coronal proton density, coronal proton density fat sat, coronal T2 fat sat. CLINICAL INFORMATION: to rule out Achilles tear COMPARISON: MRI RIGHT foot 2017 FINDINGS: Area of interest indicated with a vitamin E marker. Intrasubstance vertical tear involving the distal Achilles tendon with associated T2 signal abnormality. Fluid signal tear extends to the pre-Achilles fat pad. Associated fluid and edema within the fat pad. Achilles tear extends over approximately 1.4 cm. Tear approximately 1.2 cm proximal to the distal insertion. Small plantar calcaneal spur. Normal talus. Normal tibia talar joint. Normal ankle mortise. Normal me dial and lateral malleolus. Mild soft tissue edema about the ankle. Tenosynovitis involving the peron eal tendon sheath and peroneal tendons. Tenosynovitis involving the flexor compartment tendons. Small amount of tenosynovitis along the extensor digitorum longus. Normal bone marrow signal in the navicu lar and visualized metatarsals. MR/MR ankle RT wo con* [id number] IMPRESSION: 1. Vertical intrasubstance tear involving the Achilles tendon with fluid signa l extending over approximately 1.4 cm. This extends to the anterior fat pad. Te ar approximately 1.2 cm proximal to the distal insertion. 2. Diffuse edema and fluid within the Achilles peritendon and Kagers fat pad. 3. Normal ankle mortise. 4. Tenosynovitis along the peroneal tendon sheath and flexor compartment tendo ns. Small amount tenosynovitis along the extensor digitorum longus. 5. No other acute findings.
== END 2022-09-29 08:38 | disposition home or self-care (01) ==
LOC: RAD 08:37
PROVIDERS: PCP Family Medicine; Visit Provider Podiatrist Foot & Ankle Surgery
DX: M76.61 Achilles tendinitis, right leg (principal); S86.011A Strain of right Achilles tendon, initial encounter; X58.XXXA Exposure to other specified factors, initial encounter; M65.871 Other synovitis and tenosynovitis, right ankle and foot
CPT/HCPCS: 73721

== ENCOUNTER → 2022-09-30 14:10 | Outpatient (BNVA) | payer MEDICARE, MEDICAID, SELFPAY ==
[2021-12-24 14:27] VITALS: BP 150/89; BMI 60.4
== END ==
PROVIDERS: PCP Family Medicine; Visit Provider Specialist
DX: G43.711 Chronic migraine without aura, intractable, with status migrainosus (principal)
CPT/HCPCS: 64615; 95911; J0585

== ENCOUNTER 2022-10-09 14:50 | Emergency (ER) | payer MEDICARE, MEDICAID, SELFPAY ==
[2021-12-24 14:27] VITALS: BP 150/89; BMI 60.4
[2022-10-09 14:55] VITALS: BP 138/91; PULSE 103; RESP 20; TEMP 36.9; O2SAT 95; BMI 57.3
--- NOTE | 2022-10-09 15:00 | W.ED.NAVMDI ---
HPI - Nausea/Vomiting/Diarrhea General: Chief complaint: Fever Stated complaint: headache, n/v/d, fever Time Seen by Provider: 10/09/22 15:00 History of Present Illness: Ms. Mcclain is a 41-year-old lady with complex past medical history including migraines presenting to the emergency department due to headache and generalized illness. She reports approximately 1 week ago being diagnosed with strep and is on antibiotics. She also has sick exposure to flu. Starting yesterday she developed a frontal headache which feels very similar to typical headaches for her associated with nausea, vomiting, photosensitivity. She has tried home medications without significant improvement. Density symptoms is moderate to severe. Course has persisted. No reported meningismus. Does have a productive cough. No other specific changes in health, exacerbating, or alleviating factors identified. Onset (ago): day(s) Description of vomiting: watery Associated nausea: Yes Associated abdominal pain: No Severity: moderate Quality: stabbing and aching Associated symtoms: Reports nausea Review of Systems General: Reports: 10 or more systems reviewed and unremarkable except in HPI and below GI: Reports: nausea PFSH ED PFSH: Medical History Borderline personality disorder Chronic bronchitis Common migraine with intractable migraine Diabetes History of COPD History of neuropathy History of restless legs syndrome Morbid obesity Nicotine dependence, cigarettes, uncomplicated Post-traumatic stress disorder, chronic Psychiatric care Restless leg syndrome Sleep apnea, unspecified Surgical History History of bladder repair surgery History of endometrial ablation History of hysterectomy History of shoulder surgery History of tubal ligation Family History Brother Diabetes Mother , Acute leukemia at age 42 Cancer Father Cancer Stage IV Kidney Cancer Grandmother Diabetes maternal Grandfather Stroke maternal Social History Smoking and tobacco status: former smoker (quite 06/2022) Quit status (tobacco): has quit using tobacco Year quit tobacco: 2021 Former quit date comment: Hx of 1 ppd X 25 years Highest education level completed: Associate Degree: Occupational, Technical, Vocational Program 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[employer], 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: No Current occupational status: disabled Current gender identity: Female Carolee/Sabianism: Wicca Female Reproductive History: Date of last menstrual period: 08/28/18 Para: 3 Spontaneous abortions: No Physical Exam Const: COMMON NORMALS: alert GENERAL APPEARANCE: cooperative and well developed HENMT: COMMON NORMALS: normocephalic and atraumatic HEAD & SCALP: normocephalic and atraumatic THROAT: posterior oropharynx normal Eye: COMMON NORMALS: conjunctivae normal CONJUNCTIVA: Yes conjunctivae normal SCLERA: sclerae normal Neck/C-Spine: COMMON NORMALS: supple and no meningeal signs GENERAL: Yes trachea midline Resp: COMMON NORMALS: normal respiratory effort and clear to auscultation bilaterally EFFORT & INSPECTION: Yes able to speak in complete sentences AUSCULTATION: clear to auscultation bilaterally Cardio: COMMON NORMALS: regular rate and regular rhythm RATE: regular rate RHYTHM: regular rhythm GI: COMMON NORMALS: Soft to palpation PALPATION: Yes Soft to palpation and No Tenderness to palpation present (GI) Extremity: GENERAL: Yes normal exam except as noted and No edema Neuro: COMMON NORMALS: moves all extremities SENSORIUM/ORIENTATION: Yes alert and No Orientation impaired MENINGEAL SIGNS: Yes no meningeal signs Psych: COMMON NORMALS: mental status grossly normal and Normal thought process present THOUGHT PROCESS: Normal thought process present Course Vital Signs: Vital signs: Vital Signs Temperature 98.4 F 10/09/22 15:06 Pulse Rate 88 10/09/22 19:04 Respiratory Rate 16 10/09/22 19:04 Blood Pressure 132/83 10/09/22 19:04 Pulse Oximetry 99 10/09/22 19:04 Oxygen Delivery Me thod 10/09/22 18:05 MDM - Nausea/Vomiting/Diarrhea Medical Decision Making 41-year-old lady presenting with headache and generalized malaise. Exam as above, no focal neurologic deficits appreciated on clinical exam. Patient does have a history of headache disorder. Initially treated with migraine cocktail however patient only had mild improvement in symptoms at which point laboratory studies and imaging were felt to be warranted. No significant hematologic abnormality, mild dehydration on metabolic panel. Influenza and rapid COVID-negative CT head imaging negative for acute intracranial pathology, given absence of focal neurologic symptoms I do not feel that advanced imaging is required at this time. Upon reassessment patient had improvement in symptoms. She was able to ambulate with steady gait. Most likely etiology of patient's symptoms is headache secondary to headache disorder in the context of viral syndrome. The results of ED evaluation were discussed with the patient including prescriptions and/or symptomatic cares (if applicable) including appropriate and responsible use, followup plan, and return precautions. The patient verbalized understanding and felt safe for discharge. Medical Records I reviewed the patient's medical records. Lab Data I reviewed the patient's lab results. 10/09/22 17:24 10/09/22 17:24 Radiology Impressions Chest X-Ray 10/09/22 15:26 IMPRESSION: Mild cardiomegaly otherwise negative chest. Head CT 10/09/22 16:37 IMPRESSION: Normal CT examination of the head. Laboratory Results WBC 7.2 10^3/uL (4.0-10.0) 10/09/22 17: RBC 4.33 10^6/uL (4.1-5.3) 10/09/22 17: Hgb 12.4 g/dL (11.5-15.3) 10/09/22 17: Hct 39.7 % (37.0-47.0) 10/09/22 17: MCV 91.7 fl (81-99) 10/09/22 17: MCH 28.6 pg (28.0-34.0) 10/09/22 17: MCHC 31.2 g/dL (30.0-36.0) 10/09/22 17: RDW 15.2 % (12.1-15.1) H 10/09/22: Plt Count 209 10^3/cmm (130-400) 10/09/22: MPV 9.7 fL (7.4-10.4) 10/09/22 17: Neut % (Auto) 87.1 % 10/09/22 17: Lymph % (Auto) 6.5 % 10/09/22 17: Treasure % (Auto) 4.7 % 10/09/22 17:24 Eos % (Auto) 1.0 % 10/09/22 17: Baso % (Auto) 0.3 % 10/09/22: Neut # (Auto) 6.29 10^3/uL (1.8-7.7) 10/09/22 17:24 Lymph # (Auto) 0.5 10^3/uL (0.8-4.8) L 10/09/22 17:24 Treasure # (Auto) 0.3 10^3/uL (0.2-0.9) 10/09/22 17:24 Eos # (Auto) 0.1 10^3/uL (0.0-0.8) 10/09/22 17:24 Baso # (Auto) 0.0 10^3/uL (0.0-0.1) 10/09/22 17:24 Nucleated RBC % (auto) 0 % 10/09/22 17:24 Nucleated RBCs # 0.0 /100WBC 10/09/22 17:24 Sodium 133 mmol/L (136-145) L 10/09/22 17:24 Potassium 4.2 mmol/L (3.5-5.1) 10/09/22 17:24 Chloride 100 mmol/L (98-107) 10/09/22 17:24 Carbon Dioxide 26 mmol/L (22-29) 10/09/22 17:24 Anion Gap 11.2 (5-19) 10/09/22 17:24 BUN 10 mg/dL (6-20) 10/09/22 17:24 Creatinine 0.7 mg/dL (0.5-0.9) 10/09/22 17:24 GFR Calculation 91.3 mL/min (90-130) 10/09/22 17:24 Glucose 134 mg/dL (65-115) H 10/09/22 17:24 Calculated Osmolality 277 mOsm/kg (285-295) L 10/09/22 17:24 Lactic Acid 1.1 mmol/L (0.5-2.2) 10/09/22 17:24 Calcium 8.5 mg/dL (8.5-10.5) 10/09/22 17:24 Total Bilirubin 0.5 mg/dL (0.15-1.2) 10/09/22 17:24 AST 28 U/L (0-32) 10/09/22 17:24 ALT 35 U/L (0-33) H 10/09/22 17:24 Alkaline Phosphatase 74 U/L (35-105) 10/09/22 17:24 Total Protein 6.9 g/dL (6.6-8.7) 10/09/22 17:24 Albumin 3.2 g/dL (3.5-5.2) L 10/09/22 17:24 Globulin 3.7 g/dL (1.3-4.6) 10/09/22 17:24 Influenza Type A Ag negative (Negative) 10/09/22 15:32 Influenza Type B Ag negative (Negative) 10/09/22 15:32 SARS-CoV-2 Ag (Rapid) negative (Negative) 10/09/22 15:32 Discharge Plan Discharge Patient Disposition: Home Clinical Impression: Migraine, Acute viral syndrome Condition: Stable Prescriptions: No Action pantoprazole 40 mg tablet,delayed release (DR/EC) 40 mg PO QAM albuterol sulfate [ProAir HFA] 90 mcg/actuation HFA aerosol inhaler 2 puff INHALATION Q6H PRN (Reason: shortness of breath) albuterol sulfate 2.5 mg /3 mL (0.083 %) solution for nebulization 2.5 mg inhalation Q4H PRN (Reason: Shortness Of Breath) sumatriptan succinate [Imitrex] 100 mg tablet 100 mg PO Q2H PRN (Reason: migraine headache) Qty: 9 6RF rosuvastatin 20 mg tablet 20 mg PO DAILY metformin 500 mg tablet 1,000 mg PO DAILY Trelegy Ellipta 100-62.5-25 mcg blister with device 1 inh inhalation DAILY Qty: 60 3RF montelukast [Singulair] 10 mg tablet 10 mg PO DAILY Qty: 30 3RF (DME) Night Splint See Rx Instructions .Route .MEDSUPPLY Qty: 1 0RF Rx Instructions: As directed silver nitrate applicators 75-25 % stick 1 applic topical .not given Qty: 1 0RF hydrocodone-acetaminophen 5-325 mg tablet 1 tab PO Q6H PRN (Reason: Pain) aripiprazole [Abilify] 10 mg tablet 10 mg PO QAM Qty: 30 2RF venlafaxine 75 mg capsule,extended release 24hr 225 mg PO QAM Qty: 90 1RF bupropion HCl 150 mg tablet extended release 24 hr 150 mg PO DAILY 30 Days Qty: 30 1RF pramipexole [Mirapex] 0.5 mg tablet 0.5 mg PO .HS Qty: 30 2RF losartan-hydrochlorothiazide 50-12.5 mg tablet 1.5 tab PO QAM Qty: 135 2RF acetaminophen 500 mg Tablet 1,000 mg PO Q6H PRN (Reason: Pain) ibuprofen 200 mg Tablet 800 mg PO Q6H PRN (Reason: Pain) ondansetron HCl 4 mg tablet 4 mg PO Q6H PRN (Reason: nausea and vomiting) Qty: 20 0RF Ozempic 0.25 mg or 0.5 mg(2 mg/1.5 mL) pen injector 0.5 mg SUBCUT Q7D metoprolol succinate 100 mg tablet extended release 24 hr 100 mg PO BID Discharge Orders: Discharge ED (Routine); Ordered 10/09/22 Ordered By: Herbie Liu Referrals: Marcus Wills MD [Primary Care Provider] - Discharge Diet: Usual diet Discharge Activity: Increase activity as tolerated Patient Instructions: Migraine Headache (ED), Viral Syndrome (ED), Pain Management Activity Restrictions/Additional Instructions: Thank you for visiting the emergency department. You were seen and evaluated for generalized illness and headache. The most likely cause of your symptoms is viral infection with migraine. Given improvement I do not believe that you require inpatient management at this time. Please follow-up with your primary care provider. Return to the emergency department for worsening symptoms, any new neurologic symptoms, or anything else that you are concerned about a feel needs emergency department evaluation. Coding Level of Care Code ED Billet Shearer for Sheila Meraz Exam Comprehensive
[2022-10-09 15:06] VITALS: BP 138/91; PULSE 103; RESP 20; TEMP 36.9; O2SAT 95
--- NOTE | 2022-10-09 15:26 | XRR_ITS ---
PROCEDURE INFORMATION: Exam: XR Chest Exam date and time: 10/09/2022 3:56 PM Age: 41 years old Clinical indication: Cough TECHNIQUE: Imaging protocol: Radiologic exam of the chest. Views: 1 view. COMPARISON: CR XR chest 1V portable [id number] 02/23/2022 9:16 AM FINDINGS: Lungs: Unremarkable. No consolidation. Pleural spaces: Unremarkable. No pleural effusion. No pneumothorax. Heart/Mediastinum: Cardiac silhouette is mildly enlarged on this portable chest. Bones/joints: Unremarkable. XR/XR chest 1V portable [id number] IMPRESSION: Mild cardiomegaly otherwise negative chest.
[2022-10-09] MEDS: sodium chloride 0.9% 1,000 ML 999 ML IV (15:44)
[2022-10-09] MEDS: metoclopramide 5 mg/mL SDV 2 mL 10 MG IVP (15:47)
[2022-10-09] MEDS: ketorolac 30 mg/mL INJ 15 MG IVP (15:48)
[2022-10-09] MEDS: dexamethasone 10 mg/mL INJ IVP (15:49)
[2022-10-09] MEDS: diphenhydrAMINE 50 mg/mL SDV 1mL 12.5 MG IVP (15:50)
[2022-10-09 15:52] VITALS: PULSE 108; RESP 16; O2SAT 95
[2022-10-09 16:09] LABS: SARS Covid-2 Antigen negative (Negative)
[2022-10-09 16:10] LABS: Influenza A by IFA negative (Negative); Influenza B by IFA negative (Negative)
--- NOTE | 2022-10-09 16:37 | CTR_ITS ---
PROCEDURE INFORMATION: Exam: CT Head Without Contrast Exam date and time: 10/09/2022 4:53 PM Age: 41 years old Clinical indication: Pain; Headache TECHNIQUE: Imaging protocol: Computed tomography of the head without contrast. Radiation optimization: All CT scans at this facility use at least one of these dose optimization techniques: automated exposure control; mA and/or kV adjustment per patient size (includes targeted exams where dose is matched to clinical indication); or iterative reconstruction. COMPARISON: CR XR cervical spine 3V* [id number] 11/23/2020 6:47 PM RADIATION DOSE METRICS: Total DLP (mGy-cm): 1079.98 FINDINGS: Brain: Normal. No hemorrhage. No mass effect. Cortical sulci and white matter are unremarkable for age Cerebral ventricles: No ventriculomegaly. Paranasal sinuses: Visualized sinuses are unremarkable. No fluid levels. Mastoid air cells: Visualized mastoid air cells are well aerated. Bones/joints: Unremarkable. Soft tissues: Unremarkable. CT/CT head wo con* [id number] IMPRESSION: Normal CT examination of the head.
[2022-10-09 16:44] VITALS: BP 121/80; PULSE 86; RESP 16; O2SAT 91
[2022-10-09 17:38] LABS: Basophils % 0.3 %; Eosinophils # 0.1 10^3/uL (0.0-0.8); Hematocrit 39.7 % (37.0-47.0); Hemoglobin 12.4 g/dL (11.5-15.3); Lymphocytes # 0.5 10^3/uL (0.8-4.8); Lymphocytes % 6.5 %; Mean Corpuscular HGB Conc 31.2 g/dL (30.0-36.0); Mean Corpuscular Hemoglobin 28.6 pg (28.0-34.0); Mean Corpuscular Volume 91.7 fl (81-99); Mean Platelet Volume 9.7 fL (7.4-10.4); Monocytes # 0.3 10^3/uL (0.2-0.9); Monocytes % 4.7 %; Neutrophils # 6.29 10^3/uL (1.8-7.7); Neutrophils % 87.1 %; Nucleated Red Blood Cells % 0 %; Platelet Count 209 10^3/cmm (130-400); Red Blood Count 4.33 10^6/uL (4.1-5.3); Red Cell Distribution Width 15.2 % (12.1-15.1); White Blood Count 7.2 10^3/uL (4.0-10.0)
[2022-10-09 18:00] LABS: Lactic Sepsis W/Reflex 1.1 mmol/L (0.5-2.2)
[2022-10-09 18:01] LABS: Alanine Aminotransferase 35 U/L (0-33); Albumin Level 3.2 g/dL (3.5-5.2); Alkaline Phosphatase 74 U/L (35-105); Anion Gap 11.2 (5-19); Aspartate Amino Transferase 28 U/L (0-32); Blood Urea Nitrogen 10 mg/dL (6-20); Calcium 8.5 mg/dL (8.5-10.5); Carbon Dioxide 26 mmol/L (22-29); Chloride 100 mmol/L (98-107); Globulin 3.7 g/dL (1.3-4.6); Glomerular Filtration Rate 91.3 mL/min (90-130); Glucose 134 mg/dL (65-115); Osmolality Calculated 277 mOsm/kg (285-295); Potassium 4.2 mmol/L (3.5-5.1); Sodium 133 mmol/L (136-145); Total Bilirubin 0.5 mg/dL (0.15-1.2); Total Protein 6.9 g/dL (6.6-8.7)
[2022-10-09 18:05] VITALS: BP 132/75; PULSE 94; RESP 16; O2SAT 97
[2022-10-09] MEDS: acetaminophen 500 mg Tablet 1000 MG PO (18:21)
[2022-10-09 19:04] VITALS: BP 132/83; PULSE 88; RESP 16; O2SAT 99
== END 2022-10-09 19:02 | disposition home or self-care (01) ==
PROVIDERS: Emergency Provider Emergency Medicine; PCP Family Medicine
DX: G43.909 Migraine, unspecified, not intractable, without status migrainosus (principal); B34.9 Viral infection, unspecified; Z79.84 Long term (current) use of oral hypoglycemic drugs; Z87.891 Personal history of nicotine dependence; J44.9 Chronic obstructive pulmonary disease, unspecified; E11.9 Type 2 diabetes mellitus without complications; Z20.822 Contact with and (suspected) exposure to COVID-19
CPT/HCPCS: 36415; 70450; 71045; 80053; 83605; 85025; 87040; 87426; 87804; 96361; 96365; 96375; 99285; J1100; J1200; J1885; J2765; J3475; J7030

== ENCOUNTER → 2022-10-11 11:11 | Outpatient (BNVA) | payer MEDICARE, MEDICAID, SELFPAY ==
[2021-12-24 14:27] VITALS: BP 150/89; BMI 60.4
== END ==
PROVIDERS: PCP Family Medicine; Visit Provider Podiatrist Foot & Ankle Surgery
DX: M76.61 Achilles tendinitis, right leg (principal)
CPT/HCPCS: 99215

== ENCOUNTER 2022-10-27 14:30 | Outpatient (CLI) | payer MEDICARE, MEDICAID, SELFPAY ==
[2021-12-24 14:27] VITALS: BP 150/89; BMI 60.4
== END 2022-10-27 14:31 | disposition home or self-care (01) ==
LOC: SLEEP 10-28 15:12
PROVIDERS: PCP Family Medicine; Visit Provider Internal Medicine Pulmonary Disease
DX: G47.33 Obstructive sleep apnea (adult) (pediatric) (principal)
CPT/HCPCS: 94762

== ENCOUNTER → 2022-10-28 14:52 | Outpatient (BNVA) | payer MEDICARE, MEDICAID, SELFPAY ==
[2021-12-24 14:27] VITALS: BP 150/89; BMI 60.4
== END ==
PROVIDERS: PCP Family Medicine; Visit Provider Internal Medicine Cardiovascular Disease
DX: R55 Syncope and collapse (principal); I47.1 Supraventricular tachycardia; I49.1 Atrial premature depolarization; I49.3 Ventricular premature depolarization
CPT/HCPCS: 93246

== ENCOUNTER 2022-11-05 09:31 | Day surgery (SDC) | payer MEDICARE, MEDICAID, SELFPAY ==
[2021-12-24 14:27] VITALS: BP 150/89; BMI 60.4
[2022-11-04 11:56] VITALS: BMI 26.4
--- NOTE | 2022-11-05 | XR_ITS ---
WS: [id number] C-arm fluoroscopy right calcaneus, 11/05/2022 Clinical Data: ROSALIND PICS Comparison: MR right ankle, 09/29/2022 Findings: Lateral images of the distal right Achilles tendon. XR/XR calcaneus RT min 2V [id number] Impression: Lateral images of distal right Achilles tendon.
[2022-11-05 10:00] VITALS: BP 127/82; PULSE 83; RESP 16; TEMP 37.1; O2SAT 95
--- NOTE | 2022-11-05 10:03 | ANES.PREANE2 ---
Pre-Anesthetic Assessment Height/Weight: Height 1.73 m Weight 78.925 kg Preop Diagnosis: Right Elmer's deformity Operation Date: 11/05/22 11:10 Proposed Procedures p Achilles tendon repair and Elmer's resection all right lower extremity 20266, [id number],M65.271,M89.371(Right) - Sonny Aponte DPM s [place] Resection(Right) - Sonny Aponte DPM Familial anesthetic complications: none Was Beta Fabby taken within 24 hours: Yes Last intake: > 8ghrs Social No alcohol and No tobacco Exam alert, oriented x 3, clear to auscultation bilaterally and regular rate & rhythm Airway Mallampati: Class IV Dentition: full Pulmonary Asthma, Chronic Obstructive Pulmonary Disease and Sleep Apnea CV/HEM Hypertension Cath 04/14 Diagnostic Cath Status: ? ? Elective Diagnostic Findings ? * No disease noted in the Left Main, Left Anterior Descending, Right, or Circumflex coronary arteries. ? * Coronary angiography shows right dominance. Conclusions ? 1. No disease noted in the Left Main, Left Anterior Descending, Right, or Circumflex coronary arteries. Recommendations ? * Continue current medical management and risk factor modification. Lexiscan sestamibi MPI (02/25/2021) IMPRESSIONS ?1. Small sized perfusion abnormality of mild severity of mid anterior wall with ?some reversiblity noted in mid to apical anterolateral alejandre. ?2. This very likely represents breast and soft tissue attenuation artifact. ?However small area of ischemia in left anterior descending artery territory cannot be completely ruled out. ?3. Overall left ventricular systolic function is normal without regional wall motion abnormalities, LVEF=75%. ?4.? No prior similar studies to compare. 11/27/20 ECHO CONCLUSIONS ?1. This is a technically difficult study. ?2. Normal left ventricular size and systolic function with no ?diagnostic regional wall motion abnormalities. Left ventricular ejection fraction is estimated at 65 %. Normal diastolic function. ?3. Normal right ventricular size and systolic function. ?4. No significant valvular abnormality based on the study. ?5. When compared to study dated 01/24/2019, there may not have been any significant change. 11/27/20 PFT INTERPRETATION: The spirometry is normal.? Lung volumes reveal severe air trapping indirectly suggestive of obstructive ventilatory defect.? Normal gas transfer.? Please correlate clinically. 10/13/20 TREADMILL STRESS TEST CONCLUSION: 1.? Possibly normal EKG response to treadmill exercise 2.? No exercise-induced chest pain or cardiac arrhythmia 3.? Markedly impaired exercise tolerance, attained a maximum of 4.6 METs 4.? Hypertensive response to exercise 03/25/20 HOLTER MONITOR CONCLUSION: 1.? Baseline rhythm is sinus rhythm.? Sinus arrhythmia noted during the study. 2.? No significant pauses or bradycardias noted. 3.? No significant tachyarrhythmia. 4.? No symptoms noted. 5.? Normal Holter monitor. GI Gastroesophageal Reflux Disease Metabolic Diabetes Mellitus and Morbid Obesity Anesthetic Plan ASA status: 3 Anesthesia: General and Regional (specify below) Risk of > 500 ml blood loss (7ml/kg in children): No Medications/Allergies Home Medications Medication Instructions Recorded Confirmed Last Taken Type albuterol sulfate 90 mcg/actuation 2 puff inhalation Q6H PRN 12/10/19 11/04/22 10/07/21 History aerosol inhaler (ProAir HFA) shortness of breath albuterol sulfate 2.5 mg/3 mL 2.5 mg inhalation Q4H PRN 01/21/21 11/04/22 10/07/21 History (0.083 %) solution for nebulization Shortness Of Breath pantoprazole 40 mg tablet,delayed 40 mg PO QAM 06/08/21 11/04/22 11/04/22 History release sumatriptan succinate 100 mg 100 mg PO Q2H PRN migraine 12/28/21 11/04/22 Unknown Rx tablet (Imitrex) headache #9 tabs acetaminophen 500 mg tablet 1,000 mg PO Q6H PRN Pain 02/23/22 11/04/22 Unknown History ibuprofen 200 mg tablet 800 mg PO Q6H PRN Pain 02/23/22 11/04/22 04/13/22 05:30 History ondansetron HCl 4 mg tablet 4 mg PO Q6H PRN nausea and 02/23/22 11/04/22 Unknown Rx vomiting #20 tabs metformin 500 mg tablet 1,000 mg PO DAILY 04/05/22 11/04/22 11/04/22 History rosuvastatin 20 mg tablet 20 mg PO DAILY 04/05/22 11/04/22 11/04/22 History hydrocodone 5 mg-acetaminophen 325 1 tab PO Q6H PRN Pain 05/13/22 11/04/22 Unknown History mg tablet semaglutide 0.25 mg or 0.5 mg (2 0.5 mg SUBCUT Q7D 06/02/22 11/04/22 10/27/22 History mg/1.5 mL) subcutaneous pen injector (Ozempic) metoprolol succinate 100 mg 100 mg PO BID 06/28/22 11/04/22 11/04/22 History tablet,extended release 24 hr Night Splint #1 ea 07/21/22 10/11/22 Unknown Rx losartan 50 mg-hydrochlorothiazide 1.5 tab PO QAM #135 tabs 08/16/22 11/04/22 11/04/22 Rx 12.5 mg tablet fluticasone fur. 100 mcg-umeclid 1 inh inhalation DAILY #60 ea 09/03/22 11/04/22 11/04/22 Rx 62.5 mcg-vilant 25 mcg inhalat.powder (Trelegy Ellipta) montelukast 10 mg tablet 10 mg PO DAILY #30 tabs 09/03/22 11/04/22 11/04/22 Rx (Singulair) aripiprazole 10 mg tablet (Abilify) 10 mg PO QAM #30 tabs 10/08/22 11/04/22 11/04/22 Rx bupropion HCl 150 mg 24 hr tablet, 150 mg PO DAILY 30 days #30 tabs 10/08/22 11/04/22 11/04/22 Rx extended release pramipexole 0.5 mg tablet (Mirapex) 0.5 mg PO .HS #30 tabs 10/08/22 11/04/22 11/03/22 Rx venlafaxine 75 mg capsule,extended 225 mg PO QAM #90 caps 10/08/22 11/04/22 11/04/22 Rx release 24 hr Allergies Allergy/AdvReac Type Severity Reaction Status Date / Time aspirin Allergy Severe ADR-Vomitin Verified 11/04/22 11:54 g lamotrigine [From Lamictal] Allergy Severe ALGY-Hives Verified 11/04/22 11:54 morphine Allergy Severe ALGY-Rash Verified 11/04/22 11:54 walnut Allergy Severe ALGY-Hives Verified 11/04/22 11:54 citalopram AdvReac Severe ADR-Halluci Verified 11/04/22 11:54 nating prednisone AdvReac Severe vomitting Verified 11/04/22 11:54 [facility] Anesthesia Medical History Borderline personality disorder Chronic bronchitis Common migraine with intractable migraine Diabetes History of COPD History of neuropathy History of restless legs syndrome Morbid obesity Nicotine dependence, cigarettes, uncomplicated Post-traumatic stress disorder, chronic Psychiatric care Restless leg syndrome Sleep apnea, unspecified Surgical History History of bladder repair surgery History of endometrial ablation History of hysterectomy History of shoulder surgery History of tubal ligation Family History Brother Diabetes Mother , Acute leukemia at age 42 Cancer Father Cancer Stage IV Kidney Cancer Grandmother Diabetes maternal Grandfather Stroke maternal Social History Smoking and tobacco status: former smoker (quite 06/2022) Quit status (tobacco): has quit using tobacco Year quit tobacco: 2021 Former quit date comment: Hx of 1 ppd X 25 years Highest education level completed: Associate Degree: Occupational, Technical, Vocational Program 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
[2022-11-05 10:39] LABS: Glucose Point of Care 119 mg/dL (70-110)
[2022-11-05] MEDS: pregabalin 150 mg Capsule 300 MG PO (10:40)
[2022-11-05] MEDS: CELEcoxib 200 mg Capsule 400 MG PO (10:41)
[2022-11-05] MEDS: sodium chloride 0.9% 1,000 ML 30 ML IV (10:42)
--- NOTE | 2022-11-05 11:11 | ANES.PROC ---
Anesthesia Procedures Procedure/Date: 11/05/22 Nerve Block ^: Nerve Block 1: Main Anesthesia: general anesthesia Time Out Performed: Yes Consent: requested by attending/covering physician, from patient, risks and benefits reviewed and patient agrees to proceed Nerve block location: popliteal (R) Anesthesia monitors applied: pulse oximetry, EKG, BP cuff and oxygen Nerve block position: supine Anesthetic Used: ropivicaine 0.5% (30 ml) and with decadron (4 mg) Ultrasound used to: recognize landmarks Nerve Stimulator Used?: No Interscalene/Femoral BLK: 4 stimuplex 21 g needle used for position and inplane approach, visualize local anesthetic spread and no vascular puncture identified Injection: neg aspiration of heme Patient Tolerated Procedure: well and no complications Complications: none
[2022-11-05] MEDS: ceFAZolin 1,000 mg SDV 1000 MG IVP (12:15)
[2022-11-05] MEDS: ceFAZolin 2,000 MG in sodium chloride 0.9% (plus) 50 ML 100 MG IV (12:15)
--- NOTE | 2022-11-05 12:25 | W.PM.OPSUD ---
Surgery/Procedure H&P Update DATE OF PROCEDURE: November 05, 2022 DATE H&P PERFORMED: 10/11/22 CHANGES TO PREVIOUS DOCUMENTATION: none PREOP DIAGNOSIS: Right Elmer's deformity PLANNED PROCEDURE: Operation Date: 11/05/22 11:10 Proposed Procedures p Achilles tendon repair and Elmer's resection all right lower extremity 59489, [id number],M65.271,M89.371(Right) - Sonny Aponte DPM s [place] Resection(Right) - Sonny Aponte DPM
--- NOTE | 2022-11-05 13:16 | PM.OP ---
Operative Report Date of procedure: November 05, 2022 Pre-op diagnosis: Right Elmer's deformity. 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 Procedure done: Right Achilles tendon repair. CPT code 78046 Right Elmer's resection. CPT code 02682 Implants: Arthrex speed bridge, 3-0 Vicryl, 4-0 Vicryl, 4 nylon Specimens removed/disposition: None Surgeon: Sonny Aponte D.P.M. 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 Brief History: Patient is a pleasant 41-year-old female presents to clinic with complaints of continued pain at her right insertional Achilles.? She completed an MRI and is here to review those results, she is anticipating a surgical consultation at today's visit she feels that she is failing physical therapy.? She has had greater than 3 months of conservative treatment consisting of open back shoe gear, heel lift, daily stretching, eccentric loading every other day, anti-inflammatories and formal physical therapy for 6 weeks and has not had any improvement.? Her MRI of the right ankle performed 09/29/2022 is significant for vertical intrasubstance tear of the Achilles tendon with increased signal proximally 1.4 cm in length at the anterior Achilles tendon near its insertion.? There is also edema within the peritenon and fat pad.? She her pain is to the point where it affects her overall quality of life.? She is requesting a surgical consultation.? States that she has a good support group has children that she is able to rely on for everyday living during her recovery.? She had a uneventful recovery on the left lower extremity states that she is fully recovered at the left Achilles debridement/repair and Elmer's resection and remains pain-free.? She is hopeful that the same procedure can apply to her right.? I reviewed at length with the patient, the risks, potential complications, benefits, alternatives, expectations, and typical outcomes associated with the surgery. The risks and potential complications were explained in detail, including but not limited to infection, wound dehiscence or soft tissue complications, bleeding and hematoma, chronic edema, neuritis or nerve damage producing numbness or chronic pain, CRPS, failure to relieve pain or worsening pain, thick / painful / unsightly scar, limited motion / stiffness, malposition, delayed union, malunion, or nonunion, fracture, reaction to implants, anesthetic complications, venous thromboembolism, and deformity recurrence.? I discussed the notion of no regrets with the patient as it pertains to complications and outcomes. The patient seemed to understand the nature of the proposed care and required convalescence. They asked appropriate questions, answered to their satisfaction. They are aware no guarantees can be made as to a satisfactory outcome and they understand there may be other possible unforeseen complications or outcomes not listed here that will be treated accordingly if they arise. There were no written or implied guarantees given to the patient. They gave informed consent to proceed. Procedure: Under mild sedation the patient was brought to the operating room and placed on the operating table in supine position.? A timeout was performed.? Anesthesia was administered by the anesthesia service.? Of note right popliteal block performed preoperatively per anesthesia. Well-padded pneumatic tourniquet was applied to the left high calf.? Patient was placed in a prone position with appropriate padding and offloading.? Right lower extremity was extenuated with an Esmarch bandage and the tourniquet inflated to 250 mmHg. Attention was directed to the posterior right Achilles where a linear longitudinal incision was made approximately 7 cm in length at distal Achilles coursing to its insertion at posterior calcaneus.? Dissection was carried down sharply down to the peritenon which was incised longitudinally exposing the Achilles tendon.? There was degeneration consistent with mucoid degeneration just proximal to insertion more prominent laterally with approximately 2 cm longitudinal tear.? This was sharply debrided.? The Achilles tendon was sharply excised and reflected off the posterior calcaneus.? A fluid-filled bursa just anterior this was sharply excised once visualized with clean healthy margin.? Achilles tendon was debrided of all devitalized tissue down to healthy tendon.? Sagittal saw utilized to resect the dorsal osseous prominence at the calcaneal tubercle all rough edges were smoothed with a power rasp.? Incision site was flushed with copious amounts of sterile saline solution.? Achilles tendon was reattached to healthy bone utilizing Arthrex speed bridge with excellent tendon to cancellous bone interface, tendon was pulled out to length and noted to have a stable fixation.? Excess fiber tape was cut total of 4 anchors were utilized these were 4.75 anchors utilizing manufacture recommendation of drill, tap and insertion.? Further irrigation with saline solution was performed.? Peritenon was then reapproximated utilizing 3-0 Vicryl.? Subcutaneous tissue closed utilizing 4-0 Vicryl and skin closed utilizing 4-0 nylon.? Jumpstart applied at the incision provided by Arthrex in the pill pack.? Followed by sterile 4 x 4's, Kerlix and well-padded multilayer compressive posterior splint with the ankle in equinus position.? Tourniquet was deflated and a prompt hyperemic response was noted to the distal digits of the right foot.? Patient tolerated the procedure well and was transferred to the PACU with vital signs stable and vascular status intact.? Following a period of postoperative monitoring she will be discharged home is to remain strict nonweightbearing she does have a knee scooter she was prescribed Percocet 10/325 was brought also provided my cell phone number is to contact me with any postoperative questions or concerns over the weekend.
[2022-11-05 13:19] VITALS: BP 81/65; PULSE 76; RESP 17; TEMP 36.6; O2SAT 92
[2022-11-05 13:25] VITALS: BP 116/62; PULSE 78; RESP 15; O2SAT 92
[2022-11-05 13:48] VITALS: BP 117/60; PULSE 83; RESP 16; TEMP 36.6; O2SAT 94
[2022-11-05 14:48] VITALS: BP 142/85; PULSE 68; RESP 16; TEMP 36.7; O2SAT 97
--- NOTE | 2022-11-05 19:45 | ANE.PACU2 ---
Inpatient post-anesthesia follow up: Airway intact: Yes Vital signs: Temperature 98.0 F Pulse Rate 68 Respiratory Rate 16 Blood Pressure 142/85 Pulse Oximetry 97 Oxygen Delivery Me thod Room Air Oxygen Flow Rate 6 Fraction of Inspir ed Oxygen Hydration adequate: Yes Nausea and vomiting: No Pain level: 1 Mental status: Baseline
== END 2022-11-05 14:40 | disposition home or self-care (01) ==
PROVIDERS: PCP Family Medicine; Visit Provider Podiatrist Foot & Ankle Surgery
PROC: (CPT 27654; principal; 2022-11-05 11:10)
PROC: (CPT 27654; 2022-11-05 11:10)
DX: M92.61 Juvenile osteochondrosis of tarsus, right ankle (principal); M71.9 Bursopathy, unspecified; M65.271 Calcific tendinitis, right ankle and foot; M89.371 Hypertrophy of bone, right ankle and foot; J44.9 Chronic obstructive pulmonary disease, unspecified; G47.30 Sleep apnea, unspecified; I10 Essential (primary) hypertension; K21.9 Gastro-esophageal reflux disease without esophagitis; E66.01 Morbid (severe) obesity due to excess calories; Z68.26 Body mass index [BMI] 26.0-26.9, adult; E11.40 Type 2 diabetes mellitus with diabetic neuropathy, unspecified; Z87.891 Personal history of nicotine dependence
CPT/HCPCS: 27654; 28118; 36416; 73650; 76000; 82962; C1713; C9290; J0690; J1100; J1200; J2250; J2405; J2704; J2710; J2795; J3010; J3490; J7030

== ENCOUNTER → 2022-11-15 11:32 | Outpatient (BNVA) | payer MEDICARE, MEDICAID, SELFPAY ==
[2021-12-24 14:27] VITALS: BP 150/89; BMI 60.4
== END ==
PROVIDERS: PCP Family Medicine; Visit Provider Podiatrist Foot & Ankle Surgery
DX: M76.61 Achilles tendinitis, right leg (principal)
CPT/HCPCS: 99024

== ENCOUNTER 2022-11-25 14:55 | Outpatient (CLI) | payer MEDICARE, MEDICAID, SELFPAY ==
[2021-12-24 14:27] VITALS: BP 150/89; BMI 60.4
== END 2022-11-25 14:56 | disposition home or self-care (01) ==
LOC: SPT 15:01
PROVIDERS: PCP Family Medicine; Visit Provider Podiatrist Foot & Ankle Surgery
DX: Z47.89 Encounter for other orthopedic aftercare (principal); Z98.890 Other specified postprocedural states; M76.61 Achilles tendinitis, right leg
CPT/HCPCS: 97760; 99024; L4361

== ENCOUNTER 2022-12-14 13:46 | Emergency (ER) | payer MEDICARE, MEDICAID, SELFPAY ==
[2021-12-24 14:27] VITALS: BP 150/89; BMI 60.4
[2022-12-14 14:06] VITALS: BP 119/72; PULSE 103; RESP 20; TEMP 36.8; O2SAT 93; BMI 57.4
--- NOTE | 2022-12-14 14:36 | USCV_ITS ---
Laila Mcclain Age: 42 Gender: F : 1980 Exam Date: 12/14/2022 15:11 Ordering Phys: Yasir Grajeda MD Technologist: Sina Mc [place] [facility] [place]: rt leg pain and swelling PROCEDURES: Venous duplex imaging was performed in only the right lower extremity. The following venous structures were evaluated: common femoral vein, profunda vein, proximal portion of the greater saphenous vein, superficial femoral vein, and the popliteal vein. In addition, the posterior tibial and peroneal trunk were evaluated. FINDINGS: Normal 2-D Doppler and augmentation and compressibility throughout the lower extremity venous structures. Additional imaging through the proximal calf veins also reveals no thrombus. Limited evaluation of the greater saphenous vein is patent with no thrombus. CONCLUSIONS No DVT right lower extremity. Dr. Patricia Fuller DO (Electronically Signed) Final Date: 15 December 2022 07:40 S
--- NOTE | 2022-12-14 14:41 | W.ED.EXTPRO ---
HPI - Extremity Problem General: Chief complaint: Extremity Problem,Nontraumatic Stated complaint: left leg pain/postsurg 1month Time Seen by Provider: 12/14/22 14:31 History of Present Illness: This 42-year-old female presents to the ER for evaluation of right calf pain that started around 7 AM this morning. Patient is 5 and half weeks post right Achilles tendon repair and is currently in a walking boot. She admits that she walked around yesterday so when she developed the pain this morning, she was not sure if she overdid it . She states that the pain, which feels like a charley horse , has been persistent since onset. She denies fever, nausea, vomiting, chest pain or shortness of breath. Patient appears clinically stable. Associated symptoms: Deny chest pain Review of Systems Const: Denies: chills, body aches or change in appetite Card: Denies: chest pain or lightheadedness : Denies: dysuria Musc: Reports: other (pain in right calf); Denies: neck pain or back pain Neuro: Denies: headache(s) or weakness in extremities Karan/Lymph: Denies: easy bruising All/Imm: Denies: urticaria, tongue swelling or facial swelling PFSH ED PFSH: Medical History Borderline personality disorder Chronic bronchitis Common migraine with intractable migraine Diabetes History of COPD History of neuropathy History of restless legs syndrome Morbid obesity Nicotine dependence, cigarettes, uncomplicated Post-traumatic stress disorder, chronic Psychiatric care Restless leg syndrome Sleep apnea, unspecified Surgical History History of bladder repair surgery History of endometrial ablation History of hysterectomy History of shoulder surgery History of tubal ligation Family History Brother Diabetes Mother , Acute leukemia at age 42 Cancer Father Cancer Stage IV Kidney Cancer Grandmother Diabetes maternal Grandfather Stroke maternal Social History Smoking and tobacco status: former smoker (quite 06/2022) Quit status (tobacco): has quit using tobacco Year quit tobacco: 2021 Former quit date comment: Hx of 1 ppd X 25 years Highest education level completed: Associate Degree: Occupational, Technical, Vocational Program 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[employer], 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: No Current occupational status: disabled Current gender identity: Female Carolee/Uatsdin: [place] Female Reproductive History: Para: 3 Spontaneous abortions: No Physical Exam Const: COMMON NORMALS: no acute distress and no limitations Chest: COMMONS NORMALS: normal inspection of the chest Resp: COMMON NORMALS: normal respiratory effort, No retractions, No use of accessory muscles and clear to auscultation bilaterally AUSCULTATION: clear to auscultation bilaterally Cardio: COMMON NORMALS: regular rate, regular rhythm and No murmurs present (Cardio) RATE: regular rate RHYTHM: regular rhythm GI: COMMON NORMALS: Normal to inspection, nondistended, normoactive bowel sounds present and non-tender : COMMON NORMALS: Yes no CVA tenderness BLADDER/KIDNEY EXAM: Yes no CVA tenderness Back/Pelvis: COMMON NORMALS: no CVA tenderness and no thoracic nor lumbar tenderness Extremity: GENERAL: Yes normal exam except as noted OTHER: Tenderness on palpation of the right calf. No redness or bruising. Dorsalis pedis pulse present. Surgical wound over the Achilles is well-healed. Course Vital Signs: Vital signs: Vital Signs Temperature 98.2 F 12/14/22 14:06 Pulse Rate 103 H 12/14/22 14:06 Respiratory Rate 20 H 12/14/22 14:06 Blood Pressure 119/72 12/14/22 14:06 Pulse Oximetry 93 12/14/22 14:06 Oxygen Delivery Me thod 12/14/22 14:06 MDM - Extremity (Nontraumatic) Medical Decision Making Medical decision making: History as above. Since she is 5 and half weeks post op, venous Doppler ultrasound was ordered due to concerns for DVT. Ultrasound is negative for DVT. There is nothing to suggest cellulitis or trauma to the lower extremity that would warrant imaging studies. I believe that walking around a lot yesterday contributes to the pain in the cast. She was advised to rest, elevate and apply ice to the affected area. In addition, she may take [id number] Tylenol or Motrin as needed. Reasons to return were discussed. Lab Data 12/14/22 14:52 12/14/22 14:52 Laboratory Results WBC 10.7 10^3/uL (4.0-10.0) H 12/14/22 14:52 RBC 4.29 10^6/uL (4.1-5.3) 12/14/22 14:52 Hgb 12.0 g/dL (11.5-15.3) 12/14/22 14:52 Hct 37.7 % (37.0-47.0) 12/14/22 14:52 MCV 87.9 fl (81-99) 12/14/22 14:52 MCH 28.0 pg (28.0-34.0) 12/14/22 14:52 MCHC 31.8 g/dL (30.0-36.0) 12/14/22 14:52 RDW 13.7 % (12.1-15.1) 12/14/22 14:52 Plt Count 273 10^3/cmm (130-400) 12/14/22 14:52 MPV 9.5 fL (7.4-10.4) 12/14/22 14:52 Neut % (Auto) 74.2 % 12/14/22 14:52 Lymph % (Auto) 18.6 % 12/14/22 14:52 Evans % (Auto) 4.6 % 12/14/22 14:52 Eos % (Auto) 1.8 % 12/14/22 14:52 Baso % (Auto) 0.3 % 12/14/22 14:52 Neut # (Auto) 7.95 10^3/uL (1.8-7.7) H 12/14/22 14:52 Lymph # (Auto) 2.0 10^3/uL (0.8-4.8) 12/14/22 14:52 Evans # (Auto) 0.5 10^3/uL (0.2-0.9) 12/14/22 14:52 Eos # (Auto) 0.2 10^3/uL (0.0-0.8) 12/14/22 14:52 Baso # (Auto) 0.0 10^3/uL (0.0-0.1) 12/14/22 14:52 Nucleated RBC % (auto) 0 % 12/14/22 14:52 Nucleated RBCs # 0.0 /100WBC 12/14/22 14:52 Sodium 138 mmol/L (136-145) 12/14/22 14:52 Potassium 4.2 mmol/L (3.5-5.1) 12/14/22 14:52 Chloride 101 mmol/L (98-107) 12/14/22 14:52 Carbon Dioxide 30 mmol/L (22-29) H 12/14/22 14:52 Anion Gap 11.2 (5-19) 12/14/22 14:52 BUN 13 mg/dL (6-20) 12/14/22 14:52 Creatinine 0.7 mg/dL (0.5-0.9) 12/14/22 14:52 GFR Calculation 90.9 mL/min (90-130) 12/14/22 14:52 Glucose 181 mg/dL (65-115) H 12/14/22 14:52 Calculated Osmolality 291 mOsm/kg (285-295) 12/14/22 14:52 Calcium 9.1 mg/dL (8.5-10.5) 12/14/22 14:52 Total Bilirubin 0.3 mg/dL (0.15-1.2) 12/14/22 14:52 AST 12 U/L (0-32) 12/14/22 14:52 ALT 14 U/L (0-33) 12/14/22 14:52 Alkaline Phosphatase 107 U/L (35-105) H 12/14/22 14:52 Total Protein 7.2 g/dL (6.6-8.7) 12/14/22 14:52 Albumin 3.4 g/dL (3.5-5.2) L 12/14/22 14:52 Globulin 3.8 g/dL (1.3-4.6) 12/14/22 14:52 Discharge Plan Discharge Patient Disposition: Home Clinical Impression: Right calf pain Condition: Stable Prescriptions: No Action pantoprazole 40 mg tablet,delayed release (DR/EC) 40 mg PO QAM albuterol sulfate [ProAir HFA] 90 mcg/actuation HFA aerosol inhaler 2 puff INHALATION Q6H PRN (Reason: shortness of breath) albuterol sulfate 2.5 mg /3 mL (0.083 %) solution for nebulization 2.5 mg inhalation Q4H PRN (Reason: Shortness Of Breath) sumatriptan succinate [Imitrex] 100 mg tablet 100 mg PO Q2H PRN (Reason: migraine headache) Qty: 9 6RF rosuvastatin [Crestor] 20 mg tablet 20 mg PO DAILY metformin 500 mg tablet 1,000 mg PO DAILY Trelegy Ellipta 100-62.5-25 mcg blister with device 1 inh inhalation DAILY Qty: 60 3RF montelukast [Singulair] 10 mg tablet 10 mg PO DAILY Qty: 30 3RF (DME) Night Splint See Rx Instructions .Route .MEDSUPPLY Qty: 1 0RF Rx Instructions: As directed pramipexole [Mirapex] 0.5 mg tablet 0.5 mg PO .HS Qty: 30 2RF aripiprazole [Abilify] 10 mg tablet 10 mg PO QAM Qty: 30 2RF bupropion HCl 150 mg tablet extended release 24 hr 150 mg PO DAILY 30 Days Qty: 30 1RF venlafaxine [Effexor XR] 75 mg capsule,extended release 24hr 225 mg PO QAM Qty: 90 2RF (DME) cam boot to the right with lift See Rx Instructions .Route .MEDSUPPLY Qty: 1 0RF Rx Instructions: As directed losartan-hydrochlorothiazide 50-12.5 mg tablet 1.5 tab PO QAM Qty: 135 2RF oxycodone-acetaminophen [Percocet] 7.5-325 mg tablet 1 tab PO Q6H PRN (Reason: pain) 7 Days Qty: 28 0RF metoprolol succinate 100 mg tablet extended release 24 hr 100 mg PO BID Qty: 180 3RF acetaminophen 500 mg Tablet 1,000 mg PO Q6H PRN (Reason: Pain) ibuprofen 200 mg Tablet 800 mg PO Q6H PRN (Reason: Pain) ondansetron HCl 4 mg tablet 4 mg PO Q6H PRN (Reason: nausea and vomiting) Qty: 20 0RF Ozempic 0.25 mg or 0.5 mg(2 mg/1.5 mL) pen injector 0.5 mg SUBCUT Q7D Discharge Orders: Discharge ED (Routine); Ordered 12/14/22 Ordered By: Yasir Grajeda Referrals: Marcus Wills MD [Primary Care Provider] - Discharge Diet: Usual diet Discharge Activity: Increase activity as tolerated Patient Instructions: Opioid Safety, Pain Management Activity Restrictions/Additional Instructions: Rest. Ice the affected area for 10 to 15 minutes, 2-3 times a day. Elevate that right lower extremity as much as possible for the next 2 days Take [id number] Tylenol or Motrin as needed for pain. Follow-up with your primary care physician in a week for reevaluation. Return if you develop new or worsening symptoms. Coding Level of Care Code ED Compounding And Finishing Supervisor for Sheila Meraz
[2022-12-14] MEDS: HYDROcodone-acetaminophen 10-325 mg Tablet 1 TAB PO (14:49)
[2022-12-14 15:20] LABS: Basophils % 0.3 %; Eosinophils # 0.2 10^3/uL (0.0-0.8); Eosinophils % 1.8 %; Hematocrit 37.7 % (37.0-47.0); Lymphocytes % 18.6 %; Mean Corpuscular HGB Conc 31.8 g/dL (30.0-36.0); Mean Corpuscular Volume 87.9 fl (81-99); Mean Platelet Volume 9.5 fL (7.4-10.4); Monocytes # 0.5 10^3/uL (0.2-0.9); Monocytes % 4.6 %; Neutrophils # 7.95 10^3/uL (1.8-7.7); Neutrophils % 74.2 %; Nucleated Red Blood Cells % 0 %; Platelet Count 273 10^3/cmm (130-400); Red Blood Count 4.29 10^6/uL (4.1-5.3); Red Cell Distribution Width 13.7 % (12.1-15.1); White Blood Count 10.7 10^3/uL (4.0-10.0)
[2022-12-14 15:38] LABS: Alanine Aminotransferase 14 U/L (0-33); Albumin Level 3.4 g/dL (3.5-5.2); Alkaline Phosphatase 107 U/L (35-105); Anion Gap 11.2 (5-19); Aspartate Amino Transferase 12 U/L (0-32); Blood Urea Nitrogen 13 mg/dL (6-20); Calcium 9.1 mg/dL (8.5-10.5); Carbon Dioxide 30 mmol/L (22-29); Chloride 101 mmol/L (98-107); Creatinine Clr Calc Pharmacy 173.1138; Globulin 3.8 g/dL (1.3-4.6); Glomerular Filtration Rate 90.9 mL/min (90-130); Glucose 181 mg/dL (65-115); Osmolality Calculated 291 mOsm/kg (285-295); Potassium 4.2 mmol/L (3.5-5.1); Sodium 138 mmol/L (136-145); Total Bilirubin 0.3 mg/dL (0.15-1.2); Total Protein 7.2 g/dL (6.6-8.7)
[2022-12-14 16:21] VITALS: PULSE 81; RESP 16; O2SAT 96
== END 2022-12-14 16:22 | disposition home or self-care (01) ==
PROVIDERS: Emergency Provider Family Medicine; PCP Family Medicine
DX: M79.18 Myalgia, other site (principal); Z79.84 Long term (current) use of oral hypoglycemic drugs; Z87.891 Personal history of nicotine dependence; E11.9 Type 2 diabetes mellitus without complications; J44.9 Chronic obstructive pulmonary disease, unspecified
CPT/HCPCS: 36415; 80053; 85025; 93971; 99284

== ENCOUNTER → 2022-12-16 12:53 | Outpatient (BNVA) | payer MEDICARE, MEDICAID, SELFPAY ==
[2021-12-24 14:27] VITALS: BP 150/89; BMI 60.4
== END ==
PROVIDERS: PCP Family Medicine; Visit Provider Podiatrist Foot & Ankle Surgery
DX: Z98.890 Other specified postprocedural states (principal); M76.61 Achilles tendinitis, right leg
CPT/HCPCS: 99024

== ENCOUNTER → 2022-12-28 09:37 | Outpatient (BNVA) | payer MEDICARE, MEDICAID, SELFPAY ==
[2021-12-24 14:27] VITALS: BP 150/89; BMI 60.4
== END ==
PROVIDERS: PCP Family Medicine; Visit Provider Specialist
DX: G43.711 Chronic migraine without aura, intractable, with status migrainosus (principal); E66.01 Morbid (severe) obesity due to excess calories; Z68.43 Body mass index [BMI] 50.0-59.9, adult
CPT/HCPCS: 99213

== ENCOUNTER → 2022-12-30 12:57 | Outpatient (BNVA) | payer MEDICARE, MEDICAID, SELFPAY ==
[2021-12-24 14:27] VITALS: BP 150/89; BMI 60.4
== END ==
PROVIDERS: PCP Family Medicine; Visit Provider Podiatrist Foot & Ankle Surgery
DX: Z48.89 Encounter for other specified surgical aftercare (principal); M76.61 Achilles tendinitis, right leg
CPT/HCPCS: 99024

== ENCOUNTER 2023-01-14 14:27 | Outpatient (CLI) | payer MEDICARE, MEDICAID, SELFPAY ==
[2021-12-24 14:27] VITALS: BP 150/89; BMI 60.4
--- NOTE | 2023-01-14 14:35 | MM_ITS ---
WS: [id number] BILATERAL 3D TOMOSYNTHESIS DIGITAL DIAGNOSTIC MAMMOGRAPHY WITH CAD CLINICAL INFORMATION: PAINFUL LUMPY RT BREAST HISTORY: Painful RIGHT breast lump COMPARISON: 2020 TECHNIQUE: Bilateral CC, MLO, and ML views. FINDINGS: Scattered fibroglandular densities bilaterally. Palpable marker upper outer RIGHT breast. Incidental punctate calcifications. Ultrasound RIGHT breast at the palpable lump is pending. LEFT breast is unchanged in appearance. No other suspicious findings at changes from previous. ULTRASOUND BREAST RIGHT TECHNIQUE: Ultrasound right breast focused area of concern. CLINICAL INFORMATION: PAINFUL LUMPY RT BREAST FINDINGS: Ultrasound RIGHT breast at the 10:00 position 8 cm from the nipple in the area of palpable concern. N ormal underlying parenchymal tissue. No cystic or solid lesions. No suspicious findings. Recommend re turn to annual screening mammography. MM/[place] [id number] IMPRESSION: BI-RADS: 2-Benign FOLLOW UP: 1 Year Follow-up Recommend return to annual screening mammography.
== END 2023-01-14 14:28 | disposition home or self-care (01) ==
LOC: RAD 14:30
PROVIDERS: PCP Family Medicine; Visit Provider Family Medicine
DX: N64.4 Mastodynia (principal); N63.11 Unspecified lump in the right breast, upper outer quadrant
CPT/HCPCS: 76642; 77062; G0279

== ENCOUNTER → 2023-01-31 11:35 | Outpatient (BNVA) | payer MEDICARE, MEDICAID, SELFPAY ==
[2021-12-24 14:27] VITALS: BP 150/89; BMI 60.4
== END ==
PROVIDERS: PCP Family Medicine; Visit Provider Podiatrist Foot & Ankle Surgery
DX: Z98.890 Other specified postprocedural states (principal)
CPT/HCPCS: 99024

== ENCOUNTER → 2023-02-09 10:54 | Outpatient (BNVA) | payer MEDICARE, MEDICAID, OTHER, SELFPAY ==
[2021-12-24 14:27] VITALS: BP 150/89; BMI 60.4
== END ==
PROVIDERS: PCP Family Medicine; Visit Provider Nurse Practitioner
DX: Z79.899 Other long term (current) drug therapy (principal)
CPT/HCPCS: 80061; 83036

== ENCOUNTER 2023-02-12 20:35 | Emergency (ER) | payer MEDICARE, MEDICAID, SELFPAY ==
[2021-12-24 14:27] VITALS: BP 150/89; BMI 60.4
[2023-02-12 20:37] VITALS: BP 109/74; PULSE 100; RESP 18; TEMP 36.5; O2SAT 98
--- NOTE | 2023-02-12 21:47 | USR_ITS ---
PROCEDURE INFORMATION: Exam: US Duplex Right Lower Extremity Veins, Limited Exam date and time: 02/12/2023 10:46 PM Age: 42 years old Clinical indication: Pain; Leg, lower; Right; Additional info: RT calf pain, no HX of dvt TECHNIQUE: Imaging protocol: Real-time duplex ultrasound of the right extremity with 2-D jang scale, color Doppler flow and spectral waveform analysis including responses to compression and other maneuvers (when performed) with image documentation. Limited exam was focused on the right lower extremity veins. COMPARISON: US soft tissue/extremity [id number] 07/06/2021 2:41 PM FINDINGS: Right deep veins: Unremarkable. The common femoral, femoral, proximal profunda femoral and popliteal veins are patent without thrombus. Normal Doppler waveforms. Normal compressibility and/or augmentation response. Right superficial veins: Unremarkable. Saphenofemoral junction is patent without thrombus. Soft tissues: Unremarkable. US/[place] [id number] IMPRESSION: No evidence of deep vein thrombosis.
[2023-02-12 22:37] VITALS: BP 104/58; PULSE 92; RESP 16; O2SAT 95
--- NOTE | 2023-02-12 22:39 | PC.NURSE ---
Pt presents to ED c/o R calf cramps and pain. Pt states that pain is similar to zahra horses and comes intermittently. Pt mentioned having achilles tendon repair surgery on 11/05/2022 and was on rest for 6-8 weeks. Pt stated that her L achilles tendon was repaired in 2019 and both spontaneously ruptured without known cause. No redness, swelling noted in R calf. Pedal pulses bilaterally equal, +2. Pt currently resting in bed.
[2023-02-12] MEDS: ketorolac 60 mg/2 mL INJ IM (22:48)
[2023-02-12] MEDS: cyclobenzaprine 10 mg Tablet PO (22:48)
--- NOTE | 2023-02-12 22:53 | W.ED.EXTPRO ---
HPI - Extremity Problem General: Chief complaint: Extremity Problem,Nontraumatic Stated complaint: Pain in Rt Calf Time Seen by Provider: 02/12/23 22:25 Source: patient Mode of arrival: ambulatory Limitations: no limitations History of Present Illness: [facility] treatment of several hours of right calf pain. Patient denies any known trauma or injuries prior to onset of her pain. She denies any previous history of blood clots. She denies being on estrogen supplements or recent prolonged travel, but states she was significantly limited in her mobility for 6 to 8 weeks due to right Achilles tendon repair in October. She is denying shortness of breath or chest pains. She has chronic varicose veins but does not indicate they appear worse today. Review of Systems General: Reports: 10 or more systems reviewed and unremarkable except in HPI and below PFSH ED PFSH: Medical History Borderline personality disorder Chronic bronchitis Common migraine with intractable migraine Diabetes History of COPD History of neuropathy History of restless legs syndrome Morbid obesity Nicotine dependence, cigarettes, uncomplicated Post-traumatic stress disorder, chronic Psychiatric care Sleep apnea, unspecified Surgical History History of bladder repair surgery History of endometrial ablation History of hysterectomy History of shoulder surgery History of tubal ligation Family History Brother Diabetes Mother , Acute leukemia at age 42 Cancer Father Cancer Stage IV Kidney Cancer Grandmother Diabetes maternal Grandfather Stroke maternal Social History Smoking and tobacco status: former smoker (quite 06/2022) Quit status (tobacco): has quit using tobacco Year quit tobacco: 2021 Former quit date comment: Hx of 1 ppd X 25 years Substance/Drug Use: current Substance/Drug use frequency: few times a month Other substance/drug use details: former meth user quit in 2013 Highest education level completed: Associate Degree: Occupational, Technical, Vocational Program 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, 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: No Current occupational status: disabled Do you think of yourself as: Straight/Heterosexual Current gender identity: Female Carolee/Tenriism: Wicca Female Reproductive History: Para: 3 Spontaneous abortions: No Physical Exam Const: COMMON NORMALS: no acute distress, patient oriented x3 and alert HENMT: COMMON NORMALS: normocephalic, atraumatic and hearing grossly normal bilaterally HEAD & SCALP: normocephalic and atraumatic Eye: COMMON NORMALS: Equal, round and reactive pupils present, EOMs intact bilaterally and conjunctivae normal CONJUNCTIVA: Yes conjunctivae normal PUPIL: Yes Equal, round and reactive pupils present Neck/C-Spine: COMMON NORMALS: full ROM and no JVD Lymph: LYMPHATIC: no lymphadenopathy noted Resp: COMMON NORMALS: normal respiratory effort, No retractions and No use of accessory muscles Cardio: COMMON NORMALS: no JVD and regular rate RATE: regular rate Extremity: NARRATIVE EXTREMITY EXAM: Patient is ambulatory and weightbearing in the emergency department. Patient has tenderness to the right mid calf with some worsening of pain on palpation. However, patient's pain appears random and episodic. She is Homans negative. No significant edema or swelling of the right leg compared to the left. Neuro: COMMON NORMALS: patient oriented x3 SENSORIUM/ORIENTATION: Yes alert Psych: COMMON NORMALS: mental status grossly normal, Normal thought process present, cooperative and normal affect THOUGHT PROCESS: Normal thought process present Skin: COMMON NORMALS: no rashes or lesions noted and turgor normal NARRATIVE SKIN EXAM: Patient has moderate amount of varicose veins noted to the bilateral lower extremities. No erythema to the right lower extremity. GENERAL SKIN EXAM: no rashes or lesions noted and turgor normal Course Vital Signs: Vital signs: Vital Signs Temperature 97.7 F 02/12/23 20:37 Pulse Rate 92 02/12/23 22:37 Respiratory Rate 16 02/12/23 22:37 Blood Pressure 104/58 02/12/23 22:37 Pulse Oximetry 95 02/12/23 22:37 Oxygen Delivery Me thod Room Air 02/12/23 20:37 MDM - Extremity (Nontraumatic) Medical Decision Making Patient presents today complaining of right calf pain. Patient has some risk factors for clot formation as she was recently immobilized for surgery however, that was about a month and a half ago. She has no chest pain or shortness of breath. Ultrasound was negative for DVT and, she did go ahead and check the Achilles region which showed no acute concerns. We will treat patient for muscle cramping. Encouraged her to increase her electrolyte intake, mineral, and vitamin intake. We will provide her a muscle relaxer and we discussed application of heat for comfort. Check with primary care next week if needed. Differential Diagnosis Likely cellulitis, lower extremity edema and deep vein thrombosis of lower extremity Lab Data Radiology Impressions Venous Duplex 02/12/23 21:47 IMPRESSION: No evidence of deep vein thrombosis. Discharge Plan Discharge Patient Disposition: Home Clinical Impression: Pain of right calf Condition: Stable Prescriptions: New tizanidine 4 mg tablet 4 mg PO BID PRN (Reason: muscle spasticity) Qty: 15 0RF No Action pantoprazole 40 mg tablet,delayed release (DR/EC) 40 mg PO QAM albuterol sulfate [ProAir HFA] 90 mcg/actuation HFA aerosol inhaler 2 puff INHALATION Q6H PRN (Reason: shortness of breath) albuterol sulfate 2.5 mg /3 mL (0.083 %) solution for nebulization 2.5 mg inhalation Q4H PRN (Reason: Shortness Of Breath) sumatriptan succinate [Imitrex] 100 mg tablet 100 mg PO Q2H PRN (Reason: migraine headache) Qty: 9 6RF rosuvastatin [Crestor] 20 mg tablet 20 mg PO DAILY metformin 500 mg tablet 1,000 mg PO DAILY Ozempic 0.25 mg or 0.5 mg(2 mg/1.5 mL) pen injector 2 mg SUBCUT Q7D Rx Instructions: 1.0 MG SUBCUTANEOUSLY EVERY 7 DAYS pramipexole [Mirapex] 0.5 mg tablet 0.5 mg PO BID Qty: 60 2RF venlafaxine [Effexor XR] 75 mg capsule,extended release 24hr 225 mg PO QAM Qty: 90 2RF bupropion HCl 150 mg tablet extended release 24 hr 150 mg PO DAILY 30 Days Qty: 30 1RF aripiprazole [Abilify] 10 mg tablet 10 mg PO QAM Qty: 30 2RF losartan-hydrochlorothiazide 50-12.5 mg tablet 1.5 tab PO QAM Qty: 135 2RF metoprolol succinate 100 mg tablet extended release 24 hr 100 mg PO BID Qty: 180 3RF montelukast [Singulair] 10 mg tablet 10 mg PO DAILY Qty: 30 3RF Trelegy Ellipta 100-62.5-25 mcg blister with device 1 inh inhalation DAILY Qty: 60 3RF acetaminophen 500 mg Tablet 1,000 mg PO Q6H PRN (Reason: Pain) ibuprofen 200 mg Tablet 800 mg PO Q6H PRN (Reason: Pain) ondansetron HCl 4 mg tablet 4 mg PO Q6H PRN (Reason: nausea and vomiting) Qty: 20 0RF Discharge Orders: Discharge ED (Routine); Ordered 02/12/23 Ordered By: Arpita Contreras Referrals: Marcus Wills MD [Primary Care Provider] - Discharge Diet: Usual diet Discharge Activity: Increase activity as tolerated Patient Instructions: Muscle Cramp (ED) Activity Restrictions/Additional Instructions: Ultrasound today revealed no signs of any blood clots or issues with your Achilles. Given the location of your pain, we will treat for muscle spasming. In this particular area you may have heard referred to as a charley horse. I encourage you to try and increase your intake of electrolytes, vitamins, minerals. We recommend fruits and you can drink Gatorade or Powerade for electrolytes. We are providing you a muscle relaxer to help with muscle pain but, also recommend applying a heating pad to your right calf and slowly go through range of motion with your foot to help stretch your calf muscle. Coding Level of Care Code ED Scientist Engineer for Sheila Meraz
== END 2023-02-12 23:47 | disposition home or self-care (01) ==
PROVIDERS: Emergency Provider Physician Assistant; PCP Family Medicine
DX: M79.661 Pain in right lower leg (principal); E11.9 Type 2 diabetes mellitus without complications; J44.9 Chronic obstructive pulmonary disease, unspecified; Z87.891 Personal history of nicotine dependence
CPT/HCPCS: 93971; 96372; 99284; J1885

== ENCOUNTER 2023-02-17 22:28 | Emergency (ER) | payer MEDICARE, MEDICAID, SELFPAY ==
[2021-12-24 14:27] VITALS: BP 150/89; BMI 60.4
[2023-02-17 22:52] VITALS: BP 153/91; PULSE 85; RESP 16; TEMP 36.8; O2SAT 98; BMI 57.7
--- NOTE | 2023-02-17 23:02 | ED_ITS ---
HPI - Headache General: Chief Complaint: Headache Stated Complaint: Migrane Headache Time Seen by Provider: 02/17/23 22:57 Source: patient Mode of arrival: ambulatory Limitations: no limitations History of Present Illness: 42-year-old female who states she has a long history of migraines she states that she has had a headache for the last 2 days she had a Toradol shot earlier today that brought the headache down to a 4 but it is worsening and its 8 out of 10 its like her typical migraine she states its not worst headache of her life she does have photophobia and phonophobia no fever Associated symptoms: Deny chest pain, fever(s), nausea or vomiting Review of Systems Const: Denies: fever(s), chills or body aches Eyes: Denies: eye discomfort ENMT: Denies: throat pain or dental pain Card: Denies: chest pain Resp: Denies: dyspnea GI: Denies: abdominal pain, nausea, vomiting or diarrhea : Denies: dysuria Musc: Denies: neck pain or back pain Neuro: Reports: headache(s) PFSH ED PFSH: Medical History Borderline personality disorder Chronic bronchitis Common migraine with intractable migraine Diabetes History of COPD History of neuropathy History of restless legs syndrome Morbid obesity Nicotine dependence, cigarettes, uncomplicated Post-traumatic stress disorder, chronic Psychiatric care Sleep apnea, unspecified Surgical History History of bladder repair surgery History of endometrial ablation History of hysterectomy History of shoulder surgery History of tubal ligation Family History Brother Diabetes Mother , Acute leukemia at age 42 Cancer Father Cancer Stage IV Kidney Cancer Grandmother Diabetes maternal Grandfather Stroke maternal Social History Smoking and tobacco status: former smoker (quite 06/2022) Quit status (tobacco): has quit using tobacco Year quit tobacco: 2021 Former qu it date comment: Hx of 1 ppd X 25 years Substance/Drug Use: current Substance/Drug use frequency: few times a month Other substance/drug use details: former meth user quit in 2013 Highest education level completed: Associate Degree: Occupational, Technical, Vocational Program 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, 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: No Current occupational status: disabled Do you think of yourself as: Straight/Heterosexual Current gender identity: Female Carolee/Druze: Wicca Female Reproductive History: Para: 3 Spontaneous abortions: No Physical Exam Const: COMMON NORMALS: no acute distress, patient oriented x3 and healthy appearing HENMT: COMMON NORMALS: normocephalic and atraumatic HEAD & SCALP: normocephalic and atraumatic Eye: COMMON NORMALS: Equal, round and reactive pupils present and EOMs intact bilaterally PUPIL: Yes Equal, round and reactive pupils present Neck/C-Spine: COMMON NORMALS: full ROM, supple and no meningeal signs Chest: COMMONS NORMALS: normal inspection of the chest Resp: COMMON NORMALS: normal respiratory effort Cardio: COMMON NORMALS: regular rate, regular rhythm and No murmurs present (Cardio) RATE: regular rate RHYTHM: regular rhythm GI: COMMON NORMALS: no masses INSPECTION: Yes normal to inspection Extremity: COMMON NORMALS: normal to inspection and full ROM Neuro: COMMON NORMALS: patient oriented x3, moves all extremities and no focal motor deficits MENINGEAL SIGNS: Yes no meningeal signs Psych: COMMON NORMALS: mental status grossly normal, Normal thought process present and cooperative THOUGHT PROCESS: Normal thought process present Skin: COMMON NORMALS: no rashes or lesions noted and no wounds GENERAL SKIN EXAM: no rashes or lesions noted Course Vital Signs: Vital signs: Vital Signs Temperature 98.2 F 02/17/23 22:52 Pulse Rate 85 02/17/23 22:52 Respiratory Rate 16 02/17/23 22:52 Blood Pressure 153/91 02/17/23 22:52 Pulse Oximetry 98 02/17/23 22:52 Oxygen Delivery Me thod Room Air 02/17/23 22:52 MDM - Headache Medical Decision Making Patient presents here with migraine headache her headaches much improved currently no signs of subarachnoid hemorrhage or meningitis she is stable for discharge she is to follow-up with a neurologist Dr. Delaney that she sees and return if worsening. Differential Diagnosis Likely migraine; Unlikely tension headache, subarachnoid hemorrhage or meningitis Medical Records I reviewed the patient's medical records. Lab Data I reviewed the patient's lab results. Discharge Plan Discharge Patient Disposition: Home Clinical Impression: Migraine Condition: Stable Prescriptions: No Action pantoprazole 40 mg tablet,delayed release (DR/EC) 40 mg PO QAM albuterol sulfate [ProAir HFA] 90 mcg/actuation HFA aerosol inhaler 2 puff INHALATION Q6H PRN (Reason: shortness of breath) albuterol sulfate 2.5 mg /3 mL (0.083 %) solution for nebulization 2.5 mg inhalation Q4H PRN (Reason: Shortness Of Breath) sumatriptan succinate [Imitrex] 100 mg tablet 100 mg PO Q2H PRN (Reason: migraine headache) Qty: 9 6RF rosuvastatin [Crestor] 20 mg tablet 20 mg PO DAILY metformin 500 mg tablet 1,000 mg PO DAILY Ozempic 0.25 mg or 0.5 mg(2 mg/1.5 mL) pen injector 2 mg SUBCUT Q7D Rx Instructions: 1.0 MG SUBCUTANEOUSLY EVERY 7 DAYS pramipexole [Mirapex] 0.5 mg tablet 0.5 mg PO BID Qty: 60 2RF venlafaxine [Effexor XR] 75 mg capsule,extended release 24hr 225 mg PO QAM Qty: 90 2RF bupropion HCl 150 mg tablet extended release 24 hr 150 mg PO DAILY 30 Days Qty: 30 1RF aripiprazole [Abilify] 10 mg tablet 10 mg PO QAM Qty: 30 2RF losartan-hydrochlorothiazide 50-12.5 mg tablet 1.5 tab PO QAM Qty: 135 2RF metoprolol succinate 100 mg tablet extended release 24 hr 100 mg PO BID Qty: 180 3RF montelukast [Singulair] 10 mg tablet 10 mg PO DAILY Qty: 30 3RF Trelegy Ellipta 100-62.5-25 mcg blister with device 1 inh inhalation DAILY Qty: 60 3RF acetaminophen 500 mg Tablet 1,000 mg PO Q6H PRN (Reason: Pain) ibuprofen 200 mg Tablet 800 mg PO Q6H PRN (Reason: Pain) ondansetron HCl 4 mg tablet 4 mg PO Q6H PRN (Reason: nausea and vomiting) Qty: 20 0RF tizanidine 4 mg tablet 4 mg PO BID PRN (Reason: muscle spasticity) Qty: 15 0RF Discharge Orders: Discharge ED (Routine); Ordered 02/18/23 Ordered By: Rose Suazo Referrals: Marcus Wills MD [Primary Care Provider] - 1-3 days Discharge Diet: Advance as tolerated Discharge Activity: Resume usual activity Patient Instructions: Migraine Headache (ED) Coding Level of Care Code ED Emergency Medcl Emt for Sheila Meraz
[2023-02-18] VITALS: PULSE 89; O2SAT 99
[2023-02-18] MEDS: diphenhydrAMINE 50 mg/mL SDV 1mL IM
[2023-02-18] MEDS: ketorolac 60 mg/2 mL INJ IM (00:01)
[2023-02-18] MEDS: metoclopramide 5 mg/mL SDV 2 mL 10 MG IM (00:01)
== END 2023-02-18 00:44 | disposition home or self-care (01) ==
PROVIDERS: Emergency Provider Emergency Medicine; PCP Family Medicine
DX: G43.909 Migraine, unspecified, not intractable, without status migrainosus (principal)
CPT/HCPCS: 96372; 99284; J1200; J1885; J2765

== ENCOUNTER → 2023-02-21 10:54 | Outpatient (BNVA) | payer MEDICARE, MEDICAID, SELFPAY ==
[2021-12-24 14:27] VITALS: BP 150/89; BMI 60.4
== END ==
PROVIDERS: PCP Family Medicine; Visit Provider Podiatrist Foot & Ankle Surgery
DX: Z98.890 Other specified postprocedural states (principal); M76.61 Achilles tendinitis, right leg
CPT/HCPCS: 99024

== ENCOUNTER → 2023-03-03 09:27 | Outpatient (BNVA) | payer MEDICARE, MEDICAID, SELFPAY ==
[2021-12-24 14:27] VITALS: BP 150/89; BMI 60.4
== END ==
PROVIDERS: PCP Family Medicine; Visit Provider Internal Medicine Pulmonary Disease
DX: G47.33 Obstructive sleep apnea (adult) (pediatric) (principal); J82.83 Eosinophilic asthma; J98.4 Other disorders of lung; E66.01 Morbid (severe) obesity due to excess calories; Z87.09 Personal history of other diseases of the respiratory system; Z68.43 Body mass index [BMI] 50.0-59.9, adult; Z87.891 Personal history of nicotine dependence; Z79.899 Other long term (current) drug therapy
CPT/HCPCS: 99214

== ENCOUNTER 2023-03-04 18:04 | Emergency (ER) | payer MEDICARE, MEDICAID, SELFPAY ==
[2021-12-24 14:27] VITALS: BP 150/89; BMI 60.4
[2023-03-04 18:13] VITALS: BP 136/86; PULSE 88; RESP 17; TEMP 36.8; O2SAT 98
[2023-03-04 19:00] VITALS: BP 121/76; PULSE 82; RESP 16; O2SAT 99
--- NOTE | 2023-03-04 19:10 | ED_ITS ---
HPI - Headache General: Chief Complaint: Headache Stated Complaint: double vision Time Seen by Provider: 03/04/23 19:08 History of Present Illness: 42-year-old female comes in today with complaints of headache starting this afternoon around 2:00. Patient reports it was about a 4 on the pain scale and she laid down to take a nap. When she woke up her headache remained a 4 but at that time she started having some double vision. Patient reports the headache now has increased to a 7 and is all on the right hemisphere. Patient has no focal neurodeficits. Patient appears nontoxic. Patient appears no acute distress. Patient reports no prior complaints of double vision with headaches. Patient does report a history of migraines. Patient's medical history includes GERD, morbid obesity, hypertension, asthma, bipolar disorder, diabetes mellitus. Associated symptoms: Deny chest pain, fever(s) or rash Review of Systems General: Reports: 10 or more systems reviewed and unremarkable except in HPI and below Const: Denies: fever(s) Card: Denies: chest pain Resp: Denies: dyspnea Musc: Denies: neck pain Skin/Breast: Denies: rash Neuro: Reports: headache(s) PFSH ED PFSH: Medical History Borderline personality disorder Chronic bronchitis Common migraine with intractable migraine Diabetes History of COPD History of neuropathy History of restless legs syndrome Morbid obesity Nicotine dependence, cigarettes, uncomplicated Post-traumatic stress disorder, chronic Psychiatric care Sleep apnea, unspecified Surgical History History of bladder repair surgery History of endometrial ablation History of hysterectomy History of shoulder surgery History of tubal ligation Family History Brother Diabetes Mother , Acute leukemia at age 42 Cancer Father Cancer Stage IV Kidney Cancer Grandmother Diabetes maternal Grandfather Stroke maternal Social History Smoking and tobacco status: former smoker (quite 06/2022) Quit status (tobacco): has quit using tobacco Year quit tobacco: 2021 Former quit date comment: Hx of 1 ppd X 25 years Substance/Drug Use: current Substance/Drug use frequency: few times a month Other substance/drug use details: former meth user quit in 2013 Highest education level completed: Associate Degree: Occupational, Technical, Vocational Program 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, 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: No Current occupational status: disabled Do you think of yourself as: Straight/Heterosexual Current gender identity: Female Carolee/Nondenominational: Wicca Female Reproductive History: Para: 3 Spontaneous abortions: No Physical Exam Const: COMMON NORMALS: alert HENMT: COMMON NORMALS: normocephalic HEAD & SCALP: normocephalic Neck/C-Spine: COMMON NORMALS: full ROM and no meningeal signs Chest: COMMONS NORMALS: normal inspection of the chest Resp: COMMON NORMALS: normal respiratory effort Cardio: COMMON NORMALS: regular rate and regular rhythm RATE: regular rate RHYTHM: regular rhythm GI: COMMON NORMALS: non-tender Extremity: COMMON NORMALS: no pedal edema Neuro: LARISA COMA SCALE: document GCS findings Larisa coma scale eye opening: Spontaneous Larisa coma scale verbal response: Orientated Larisa coma scale motor response: Obey commands Larisa coma scale total score: 15 SENSORIUM/ORIENTATION: Yes alert MENINGEAL SIGNS: Yes no meningeal signs COORDINATION/BALANCE: [id number] test normal COORDINATION: [id number] test normal Skin: COMMON NORMALS: turgor normal GENERAL SKIN EXAM: turgor normal Course Vital Signs: Vital signs: Vital Signs Temperature 98.3 F 03/04/23 18:13 Pulse Rate 80 03/04/23 20:19 Respiratory Rate 18 03/04/23 20:19 Blood Pressure 111/55 03/04/23 20:19 Pulse Oximetry 98 03/04/23 20:19 Oxygen Delivery Me thod Room Air 03/04/23 19:00 MDM - Headache Medical Decision Making 42-year-old female comes in today with complaints of headache. On exam patient has no focal neural deficits. Pupils are equal and reactive. Patient moves all extremities well. Bilateral TMs are normal. No pain is noted along the spinal column. Reflexes are intact. Differential diagnosis includes but not limited to intracranial bleeding, stroke syndrome, migraine headache. CT of the head was unremarkable. Patient was treated with migraine cocktail of Reglan, diphenhydramine, ketorolac, and dexamethasone. Patient had significant improvement of headache to almost resolved. Patient was released to home for rest. Recommend fluids and follow-up with primary care for further instruction. Patient reported understanding. Lab Data Radiology Impressions Head CT 03/04/23 19:13 IMPRESSION: No acute intracranial abnormality. Discharge Plan Discharge Patient Disposition: Home Clinical Impression: Migraine Qualifiers: Migraine type: with aura Status migrainosus presence: without status migrainosus Intractability: not intractable Qualified Code(s): G43.109 - Migraine with aura, not intractable, without status migrainosus Condition: Stable Prescriptions: No Action pantoprazole 40 mg tablet,delayed release (DR/EC) 40 mg PO QAM albuterol sulfate [ProAir HFA] 90 mcg/actuation HFA aerosol inhaler 2 puff INHALATION Q6H PRN (Reason: shortness of breath) albuterol sulfate 2.5 mg /3 mL (0.083 %) solution for nebulization 2.5 mg inhalation Q4H PRN (Reason: Shortness Of Breath) sumatriptan succinate [Imitrex] 100 mg tablet 100 mg PO Q2H PRN (Reason: migraine headache) Qty: 9 6RF rosuvastatin [Crestor] 20 mg tablet 20 mg PO DAILY metformin 500 mg tablet 1,000 mg PO DAILY Ozempic 0.25 mg or 0.5 mg(2 mg/1.5 mL) pen injector 2 mg SUBCUT Q7D Rx Instructions: 1.0 MG SUBCUTANEOUSLY EVERY 7 DAYS pramipexole [Mirapex] 0.5 mg tablet 0.5 mg PO BID Qty: 60 2RF venlafaxine [Effexor XR] 75 mg capsule,extended release 24hr 225 mg PO QAM Qty: 90 2RF bupropion HCl 150 mg tablet extended release 24 hr 150 mg PO DAILY 30 Days Qty: 30 1RF aripiprazole [Abilify] 10 mg tablet 10 mg PO QAM Qty: 30 2RF losartan-hydrochlorothiazide 50-12.5 mg tablet 1.5 tab PO QAM Qty: 135 2RF metoprolol succinate 100 mg tablet extended release 24 hr 100 mg PO BID Qty: 180 3RF montelukast [Singulair] 10 mg tablet 10 mg PO DAILY Qty: 30 3RF Trelegy Ellipta 100-62.5-25 mcg blister with device 1 inh inhalation DAILY Qty: 60 3RF acetaminophen 500 mg Tablet 1,000 mg PO Q6H PRN (Reason: Pain) ibuprofen 200 mg Tablet 800 mg PO Q6H PRN (Reason: Pain) ondansetron HCl 4 mg tablet 4 mg PO Q6H PRN (Reason: nausea and vomiting) Qty: 20 0RF tizanidine 4 mg tablet 4 mg PO BID PRN (Reason: muscle spasticity) Qty: 15 0RF Discharge Orders: Discharge ED (Routine); Ordered 03/04/23 Ordered By: Agustin Silva Referrals: Marcus Wills MD [Primary Care Provider] - Patient Instructions: Migraine Headache (ED) Activity Restrictions/Additional Instructions: Home and rest. Drink plenty of water and fluids. Healthy diet and activity. Follow-up with primary care for further instructions. Return to ED for new concerns. Coding Level of Care Code ED Compressor Station Engineer for Sheila Meraz
--- NOTE | 2023-03-04 19:13 | CTR_ITS ---
PROCEDURE INFORMATION: Exam: CT Head Without Contrast Exam date and time: 03/04/2023 7:37 PM Age: 42 years old Clinical indication: Pain; Headache not specified; Additional info: Headache, double vision TECHNIQUE: Imaging protocol: Computed tomography of the head without contrast. Radiation optimization: All CT scans at this facility use at least one of these dose optimization techniques: automated exposure control; mA and/or kV adjustment per patient size (includes targeted exams where dose is matched to clinical indication); or iterative reconstruction. REPORTING DATA: Count of CT and Cardiac NM exams in prior 12 months: This patient has received [address] and 0 known cardiac nuclear medicine studies in the 12 months prior to the current study. COMPARISON: CT head wo con* [id number] 10/09/2022 4:53 PM RADIATION DOSE METRICS: Total DLP (mGy-cm): 1014.38 FINDINGS: Brain: Normal. No hemorrhage. Unremarkable white matter. No mass effect. Cerebral ventricles: No ventriculomegaly. Paranasal sinuses: Visualized sinuses are unremarkable. No fluid levels. Mastoid air cells: Visualized mastoid air cells are well aerated. Bones/joints: Unremarkable. No acute fracture. Soft tissues: Unremarkable. CT/CT head wo con* [id number] IMPRESSION: No acute intracranial abnormality.
[2023-03-04] MEDS: ketorolac 30 mg/mL INJ 15 MG IVP (19:25)
[2023-03-04] MEDS: diphenhydrAMINE 50 mg/mL SDV 1mL 12.5 MG IVP (19:26)
[2023-03-04] MEDS: metoclopramide 5 mg/mL SDV 2 mL 10 MG IVP (19:27)
[2023-03-04] MEDS: dexamethasone 10 mg/mL INJ 6 MG IVP (19:30)
[2023-03-04 20:19] VITALS: BP 111/55; PULSE 80; RESP 18; O2SAT 98
== END 2023-03-04 20:21 | disposition home or self-care (01) ==
PROVIDERS: Emergency Provider Nurse Practitioner Family; PCP Family Medicine
DX: G43.109 Migraine with aura, not intractable, without status migrainosus (principal); Z79.84 Long term (current) use of oral hypoglycemic drugs; E11.9 Type 2 diabetes mellitus without complications; J44.9 Chronic obstructive pulmonary disease, unspecified
CPT/HCPCS: 70450; 96374; 96375; 99284; J1100; J1200; J1885; J2765

== ENCOUNTER 2023-03-11 07:45 | Oncology outpatient (recurring) (ONCR) | payer MEDICARE, MEDICAID, SELFPAY ==
[2021-12-24 14:27] VITALS: BP 150/89; BMI 60.4
[2023-03-11] MEDS: diphenhydrAMINE 50 mg/mL SDV 1mL 25 MG IVP (08:38)
[2023-03-11] MEDS: ondansetron 2 mg/ML SDV 2 mL 4 MG IVP (08:43)
[2023-03-11 08:50] VITALS: BP 113/67; PULSE 89; RESP 18; TEMP 36.8; O2SAT 99
[2023-03-11 09:04] VITALS: RESP 16; O2SAT 99
[2023-03-11] MEDS: dihydroergotamine 1 mg/mL Inj 0.5 MG IVP ×3 (09:04→10:06)
[2023-03-11 09:36] VITALS: RESP 18
[2023-03-11 10:06] VITALS: RESP 18
[2023-03-11 10:50] VITALS: BP 123/92; PULSE 83; RESP 18; TEMP 35.6; O2SAT 95
--- NOTE | 2023-03-11 11:56 | PC.NURSE ---
This patient started having dry heaves with the [facility] Headache Protocol. This nurse tried to reach Dr. 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 THis nurse spoke to Iesha Hansen remote inpatient coder Pastry Cook Apprentice and she said that there is nothing much we could do for the next step in the orders. Migraine pain down to a 3/10 from a 8/10. Patient already had been given 4 mg Zofran and 25 mg Benadryl. THis nurse explained to the patient that Dr. Delaney is out of town and no one locally is covering for her. I let the patient know that there is not much else we can do from this stand point and that we did get her Migraine pain down from a 8 to a 3 which is really good response. I let the patient know that if her migraine persists by Tuesday to call Dr. Escalera office. I also let the patient know that if her migraine gets worse to go to the ER. Patient acknowledged understanding and had no other questions or concerns. Patient's VS stable and patients's IV was deaccessed and then she was discharged home with a friend driving.
== END 2023-03-23 23:59 | disposition home or self-care (01) ==
PROVIDERS: PCP Family Medicine; Visit Provider Specialist
DX: G43.709 Chronic migraine without aura, not intractable, without status migrainosus (principal)
CPT/HCPCS: 96374; 96375; J1110; J1200; J2405

== ENCOUNTER → 2023-03-28 14:07 | Outpatient (BNVA) | payer MEDICARE, MEDICAID, SELFPAY ==
[2021-12-24 14:27] VITALS: BP 150/89; BMI 60.4
== END ==
PROVIDERS: PCP Family Medicine; Visit Provider Internal Medicine Cardiovascular Disease
DX: R07.9 Chest pain, unspecified (principal); R06.09 Other forms of dyspnea; I10 Essential (primary) hypertension; E66.01 Morbid (severe) obesity due to excess calories; Z68.43 Body mass index [BMI] 50.0-59.9, adult; F17.210 Nicotine dependence, cigarettes, uncomplicated
CPT/HCPCS: 99214

== ENCOUNTER 2023-04-10 14:00 | Emergency (ER) | payer MEDICARE, MEDICAID, SELFPAY ==
[2021-12-24 14:27] VITALS: BP 150/89; BMI 60.4
[2023-04-10 14:06] VITALS: BP 143/86; PULSE 110; RESP 19; TEMP 36.6; O2SAT 96; BMI 58.2
--- NOTE | 2023-04-10 14:15 | ED_ITS ---
HPI - Headache General: Chief Complaint: Headache Stated Complaint: headache Time Seen by Provider: 04/10/23 14:15 History of Present Illness: Ms. Mcclain is a 42-year-old lady with history of migraines presenting due to headache. Onset of symptoms gradual yesterday typical frontal location throbbing with photosensitivity and sound sensitivity. She has had associated nausea and vomiting. Moderate to severe in intensity and exacerbated with aforementioned factors. She has tried [id number] medications and rest without significant improvement. No other specific changes in health, exacerbating, or alleviating factors identified. Onset (ago): day(s) Onset description: gradually Location: frontal Severity: severe Quality & Timing: throbbing Exacerbating factors: light and noise Associated symptoms: Reports malaise, nausea and vomiting Review of Systems General: Reports: 10 or more systems reviewed and unremarkable except in HPI and below Const: Reports: malaise GI: Reports: nausea and vomiting PFSH ED PFSH: Medical History Borderline personality disorder Chronic bronchitis Common migraine with intractable migraine Diabetes History of COPD History of neuropathy History of restless legs syndrome Morbid obesity Nicotine dependence, cigarettes, uncomplicated Post-traumatic stress disorder, chronic Psychiatric care Sleep apnea, unspecified Surgical History History of bladder repair surgery History of endometrial ablation History of hysterectomy History of shoulder surgery History of tubal ligation Family History Brother Diabetes Mother , Acute leukemia at age 42 Cancer Father Cancer Stage IV Kidney Cancer Grandmother Diabetes maternal Grandfather Stroke maternal Social History Smoking and tobacco status: former smoker (quite 06/2022) Quit status (tobacco): has quit using tobacco Year quit tobacco: 2021 Former quit date comment: Hx of 1 ppd X 25 years Substance/Drug Use: current Substance/Drug use frequency: few times a month Other substance/drug use details: former meth user quit in 2013 Highest education level completed: Associate Degree: Occupational, Technical, Vocational Program 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, 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: No Current occupational status: disabled Do you think of yourself as: Straight/Heterosexual Current gender identity: Female Carolee/Adventist: [employer] Female Reproductive History: Para: 3 Spontaneous abortions: No Physical Exam Const: COMMON NORMALS: alert GENERAL APPEARANCE: cooperative and well developed HENMT: COMMON NORMALS: normocephalic and atraumatic HEAD & SCALP: normocephalic and atraumatic THROAT: posterior oropharynx normal Eye: COMMON NORMALS: conjunctivae normal CONJUNCTIVA: Yes conjunctivae normal SCLERA: sclerae normal Neck/C-Spine: COMMON NORMALS: supple GENERAL: Yes trachea midline Resp: COMMON NORMALS: clear to auscultation bilaterally EFFORT & INSPECTION: Yes able to speak in complete sentences AUSCULTATION: clear to auscultation bilaterally Cardio: COMMON NORMALS: regular rhythm RATE: tachycardic RHYTHM: regular rhythm GI: COMMON NORMALS: Soft to palpation PALPATION: Yes Soft to palpation and No Tenderness to palpation present (GI) Extremity: GENERAL: Yes normal exam except as noted and No edema Neuro: COMMON NORMALS: moves all extremities SENSORIUM/ORIENTATION: Yes alert and No Orientation impaired Psych: COMMON NORMALS: mental status grossly normal and Normal thought process present THOUGHT PROCESS: Normal thought process present Course Vital Signs: Vital signs: Vital Signs Temperature 97.9 F 04/10/23 14:06 Pulse Rate 110 H 04/10/23 14:06 Respiratory Rate 19 H 04/10/23 14:06 Blood Pressure 143/86 04/10/23 14:06 Pulse Oximetry 96 04/10/23 14:06 Oxygen Delivery Me thod Room Air 04/10/23 14:06 MDM - Headache Medical Decision Making 42-year-old lady presenting with typical migraine headache for her with history of migraines. No red flag symptoms. Patient is nontoxic. No meningismus and no focal neurologic deficits. Prior head imaging reviewed. No indication for laboratory studies or repeat imaging pending reassessment after treatment. Patient treated with migraine cocktail and feels significantly improved on reassessment. She is comfortable with discharge. The results of ED evaluation were discussed with the patient including prescriptions and/or symptomatic cares (if applicable) including appropriate and responsible use, followup plan, and return precautions. The patient verbalized understanding and felt safe for discharge. Medical Records I reviewed the patient's medical records. Lab Data I reviewed the patient's lab results. Discharge Plan Discharge Patient Disposition: Home Clinical Impression: Headache Condition: Stable Prescriptions: New Reglan 10 mg tablet 10 mg PO Q6H PRN (Reason: headache) Qty: 20 0RF No Action pantoprazole 40 mg tablet,delayed release (DR/EC) 40 mg PO QAM albuterol sulfate [ProAir HFA] 90 mcg/actuation HFA aerosol inhaler 2 puff INHALATION Q6H PRN (Reason: shortness of breath) albuterol sulfate 2.5 mg /3 mL (0.083 %) solution for nebulization 2.5 mg inhalation Q4H PRN (Reason: Shortness Of Breath) sumatriptan succinate [Imitrex] 100 mg tablet 100 mg PO Q2H PRN (Reason: migraine headache) Qty: 9 6RF rosuvastatin [Crestor] 20 mg tablet 20 mg PO DAILY metformin 500 mg tablet 1,000 mg PO DAILY Ozempic 0.25 mg or 0.5 mg(2 mg/1.5 mL) pen injector 2 mg SUBCUT Q7D Rx Instructions: 1.0 MG SUBCUTANEOUSLY EVERY 7 DAYS pramipexole [Mirapex] 0.5 mg tablet 0.5 mg PO BID Qty: 60 2RF venlafaxine [Effexor XR] 75 mg capsule,extended release 24hr 225 mg PO QAM Qty: 90 2RF bupropion HCl 150 mg tablet extended release 24 hr 150 mg PO DAILY 30 Days Qty: 30 1RF aripiprazole [Abilify] 10 mg tablet 10 mg PO QAM Qty: 30 2RF losartan-hydrochlorothiazide 50-12.5 mg tablet 1.5 tab PO QAM Qty: 135 2RF metoprolol succinate 100 mg tablet extended release 24 hr 100 mg PO BID Qty: 180 3RF montelukast [Singulair] 10 mg tablet 10 mg PO DAILY Qty: 30 3RF Trelegy Ellipta 100-62.5-25 mcg blister with device 1 inh inhalation DAILY Qty: 60 3RF acetaminophen 500 mg Tablet 1,000 mg PO Q6H PRN (Reason: Pain) ibuprofen 200 mg Tablet 800 mg PO Q6H PRN (Reason: Pain) ondansetron HCl 4 mg tablet 4 mg PO Q6H PRN (Reason: nausea and vomiting) Qty: 20 0RF tizanidine 4 mg tablet 4 mg PO BID PRN (Reason: muscle spasticity) Qty: 15 0RF Discharge Orders: Discharge ED (Routine); Ordered 04/10/23 Ordered By: Herbie Liu Referrals: Marcus Wills MD [Primary Care Provider] - Discharge Diet: Usual diet Discharge Activity: Resume usual activity Patient Instructions: Acute Headache (ED) Activity Restrictions/Additional Instructions: Thank you for visiting the emergency department. You were seen and evaluated for headache. The most likely cause of your headache is due to underlying headache disorder and we are pleased that you had improvement in the emergency department. Please follow-up with your primary care provider and neurologist. Return for worsening or recurrent headache, any new neurologic symptoms, or anything else that you are concerned about and feel needs emergency department evaluation. 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
[2023-04-10] MEDS: diphenhydrAMINE 50 mg/mL SDV 1mL 25 MG IVP (14:40)
[2023-04-10] MEDS: metoclopramide 5 mg/mL SDV 2 mL 10 MG IVP (14:40)
[2023-04-10] MEDS: sodium chloride 0.9% 1,000 ML 999 ML IV (14:40)
== END 2023-04-10 15:44 | disposition home or self-care (01) ==
PROVIDERS: Emergency Provider Emergency Medicine; PCP Family Medicine
DX: R51.9 Headache, unspecified (principal)
CPT/HCPCS: 96374; 96375; 99284; J1200; J2765; J3475; J7030

== ENCOUNTER → 2023-04-21 08:48 | Outpatient (BNVA) | payer MEDICARE, MEDICAID, SELFPAY ==
[2021-12-24 14:27] VITALS: BP 150/89; BMI 60.4
== END ==
PROVIDERS: PCP Family Medicine; Visit Provider Specialist
DX: G43.711 Chronic migraine without aura, intractable, with status migrainosus (principal)
CPT/HCPCS: 64615; J0585

== ENCOUNTER 2023-05-17 07:31 | Outpatient (RCR) | payer MEDICARE, MEDICAID, SELFPAY ==
[2021-12-24 14:27] VITALS: BP 150/89; BMI 60.4
== END 2023-05-23 23:59 | disposition home or self-care (01) ==
LOC: SPT 07:31
PROVIDERS: PCP Family Medicine; Visit Provider Nurse Practitioner Family
DX: G89.4 Chronic pain syndrome (principal)
CPT/HCPCS: 97161

== ENCOUNTER 2023-05-24 06:00 | Outpatient (RCR) | payer MEDICARE, MEDICAID, SELFPAY ==
[2021-12-24 14:27] VITALS: BP 150/89; BMI 60.4
== END 2023-06-23 23:59 | disposition home or self-care (01) ==
LOC: SPT 06:00
PROVIDERS: PCP Family Medicine; Visit Provider Nurse Practitioner Family
DX: G89.4 Chronic pain syndrome (principal)
CPT/HCPCS: 97110; 97530

== ENCOUNTER 2023-06-22 19:56 | Inpatient (IN) | payer MEDICARE, MEDICAID, SELFPAY ==
[2021-12-24 14:27] VITALS: BP 150/89; BMI 60.4
[2023-06-22 20:01] VITALS: BP 145/98; PULSE 94; RESP 18; TEMP 36.9; O2SAT 95; BMI 58.2
[2023-06-22 20:24] LABS: Basophils % 0.2 %; Eosinophils # 0.2 10^3/uL (0.0-0.8); Hematocrit 39.8 % (36-47); Lymphocytes # 1.8 10^3/uL (0.8-4.8); Lymphocytes % 17.4 %; Mean Corpuscular HGB Conc 31.7 g/dL (30-55); Mean Corpuscular Hemoglobin 26.9 pg (27-33); Mean Platelet Volume 9.4 fL (7.4-10.4); Monocytes # 0.4 10^3/uL (0.2-0.9); Monocytes % 3.7 %; Neutrophils # 7.82 10^3/uL (1.8-7.7); Neutrophils % 76.4 %; Nucleated Red Blood Cells % 0 %; Platelet Count 280 10^3/cmm (157-399); Red Blood Count 4.68 10^6/uL (3.85-5.65); Red Cell Distribution Width 14.8 % (12.1-15.1); White Blood Count 10.23 10^3/uL (3.29-11.43)
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
[2023-06-22 20:40] LABS: HCG Qualitative Urine. Negative (Negative)
[2023-06-22 20:44] LABS: Alanine Aminotransferase 19 U/L (0-33); Albumin Level 3.7 g/dL (3.5-5.2); Alkaline Phosphatase 89 U/L (35-105); Anion Gap 13.8 (5-19); Aspartate Amino Transferase 16 U/L (0-32); Blood Urea Nitrogen 11 mg/dL (6-20); Calcium 8.7 mg/dL (8.5-10.5); Carbon Dioxide 25 mmol/L (22-29); Chloride 101 mmol/L (98-107); Globulin 3.3 g/dL (1.3-4.6); Glomerular Filtration Rate 108.6 mL/min (90-130); Glucose 200 mg/dL (65-115); Osmolality Calculated 287 mOsm/kg (285-295); Potassium 3.8 mmol/L (3.5-5.1); Salicylate 1.3 mg/dL (3-10); Sodium 136 mmol/L (136-145); Total Bilirubin 0.2 mg/dL (0.15-1.2)
[2023-06-22 20:47] LABS: Acetaminophen < 5.0 ug/mL (10-30); Alcohol Level < 10 mg/dL (0-10)
[2023-06-22 21:06] VITALS: BP 142/89; PULSE 86; RESP 20; TEMP 36.7; O2SAT 95
[2023-06-22 21:43] LABS: Add Urine Microscopic? NO; Bilirubin Urine Neg (Negative); Blood Urine Neg (Negative); Charge for UA Resulting for Rev; Glucose Urine UA Norm (Normal); Ketones Urine Negative (Negative); Leukocyte Esterase Urine Negative (Negative); Nitrate Urine Negative (Negative); Protein Urine Neg (Negative); Urine Appearance Clear (CLEAR); Urine Color Yellow (Yellow); Urobilinogen Urine 1 mg/dL (Negative); pH Urine 6 (5-7)
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
[2023-06-22 22:00] VITALS: BP 142/89; PULSE 86; RESP 20; TEMP 36.7; O2SAT 95
[2023-06-22 22:17] LABS: Amphetamines Screen Urine Negative (Negative); Barbiturates Screen Urine Negative (Negative); Benzodiazepines Screen Urine Negative (Negative); Cocaine Screen Urine Negative (Negative); Opiate Screen Urine Negative (Negative); PCP Screen Urine Negative (Negative); THC Screen Urine Negative (Negative)
[2023-06-23] MEDS: acetaminophen 325 mg Tablet 650 MG PO (05:32)
[2023-06-23 06:00] VITALS: BP 98/61; PULSE 77; RESP 20; TEMP 36.8; O2SAT 94
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
[2023-06-23 13:31] VITALS: BP 117/60; PULSE 83; RESP 17; TEMP 36.6; O2SAT 93
[2023-06-23 20:07] VITALS: BP 128/78; PULSE 87; RESP 18; TEMP 36.8; O2SAT 95
[2023-06-23] MEDS: metoprolol succinate ER (24 HR) 100 mg Tablet PO (20:22)
[2023-06-23] MEDS: pramipexole 0.25 mg Tablet 0.5 MG PO (20:22)
[2023-06-24] MEDS: acetaminophen 325 mg Tablet 650 MG PO ×2 (01:00→04:01)
[2023-06-24 06:00] VITALS: BP 152/96; PULSE 80; RESP 20; O2SAT 95
[2023-06-24 08:42] VITALS: BP 152/96
[2023-06-24] MEDS: hydroCHLOROthiazide 25 mg Tablet PO (08:42)
[2023-06-24] MEDS: montelukast sodium 10 mg Tablet PO (08:42)
[2023-06-24] MEDS: buPROPion XL (24 HR) 150 mg Tablet PO (08:42)
[2023-06-24] MEDS: venlafaxine ER (24HR) 75 mg Capsule 225 MG PO (08:42)
[2023-06-24] MEDS: losartan 50 mg Tablet 75 MG PO (08:42)
[2023-06-24] MEDS: pramipexole 0.25 mg Tablet 0.5 MG PO (08:43)
[2023-06-24] MEDS: pantoprazole DR 40 mg Tablet PO (08:43)
[2023-06-24] MEDS: ARIPiprazole 10 mg Tablet PO (08:43)
[2023-06-24] MEDS: metoprolol succinate ER (24 HR) 100 mg Tablet PO (08:43)
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
--- NOTE | 2023-06-24 14:20 | DCPLANNER ---
Pt was given IMM and rights explained and copy placed in file.
[2023-06-24 14:43] VITALS: BP 152/96
== END 2023-06-24 15:12 | disposition home or self-care (01) | DRG 885 ==
LOC: ER 20:31 → NP 20:50
PROVIDERS: Admitting Provider Psychiatry & Neurology Psychiatry; Emergency Provider Emergency Medicine; PCP Family Medicine; Visit Provider Psychiatry & Neurology Psychiatry
DX: F33.9 Major depressive disorder, recurrent, unspecified (principal); R45.851 Suicidal ideations; F43.10 Post-traumatic stress disorder, unspecified; F60.3 Borderline personality disorder; Z91.128 Patient's intentional underdosing of medication regimen for other reason; Z62.810 Personal history of physical and sexual abuse in childhood; Z81.8 Family history of other mental and behavioral disorders; Z87.891 Personal history of nicotine dependence
CPT/HCPCS: 36415; 80053; 80306; 80307; 81003; 81025; 85025; 97110; 97150; 97165; 97530; 99238; 99285

== ENCOUNTER → 2023-07-21 12:23 | Outpatient (BNVA) | payer MEDICARE, MEDICAID, SELFPAY ==
[2021-12-24 14:27] VITALS: BP 150/89; BMI 60.4
== END ==
PROVIDERS: PCP Family Medicine; Visit Provider Specialist
DX: G43.711 Chronic migraine without aura, intractable, with status migrainosus (principal)
CPT/HCPCS: 64615; J0585

== ENCOUNTER 2023-07-24 06:00 | Outpatient (RCR) | payer MEDICARE, MEDICAID, SELFPAY ==
[2021-12-24 14:27] VITALS: BP 150/89; BMI 60.4
== END 2023-08-23 23:59 | disposition home or self-care (01) ==
LOC: SPT 06:00
PROVIDERS: PCP Family Medicine; Visit Provider Nurse Practitioner Family
DX: G89.4 Chronic pain syndrome (principal)
CPT/HCPCS: 97110

== ENCOUNTER 2023-08-24 06:00 | Outpatient (RCR) | payer MEDICARE, MEDICAID, SELFPAY ==
[2021-12-24 14:27] VITALS: BP 150/89; BMI 60.4
== END 2023-09-22 23:59 | disposition home or self-care (01) ==
LOC: SPT 06:00
PROVIDERS: PCP Family Medicine; Visit Provider Nurse Practitioner Family
DX: G89.4 Chronic pain syndrome (principal)
CPT/HCPCS: 97110

== ENCOUNTER → 2023-09-22 09:02 | Outpatient (BNVA) | payer MEDICARE, MEDICAID, SELFPAY ==
[2021-12-24 14:27] VITALS: BP 150/89; BMI 60.4
== END ==
PROVIDERS: PCP Family Medicine; Visit Provider Internal Medicine Pulmonary Disease
DX: G47.33 Obstructive sleep apnea (adult) (pediatric) (principal); J82.83 Eosinophilic asthma; J98.4 Other disorders of lung; F17.210 Nicotine dependence, cigarettes, uncomplicated; E66.01 Morbid (severe) obesity due to excess calories; Z87.09 Personal history of other diseases of the respiratory system; Z99.89 Dependence on other enabling machines and devices; Z68.43 Body mass index [BMI] 50.0-59.9, adult
CPT/HCPCS: 99214

== ENCOUNTER 2023-09-23 06:00 | Outpatient (RCR) | payer MEDICARE, MEDICAID, SELFPAY ==
[2021-12-24 14:27] VITALS: BP 150/89; BMI 60.4
== END 2023-10-03 23:59 | disposition home or self-care (01) ==
LOC: SPT 06:00
PROVIDERS: PCP Family Medicine; Visit Provider Nurse Practitioner Family
DX: G89.4 Chronic pain syndrome (principal); M17.11 Unilateral primary osteoarthritis, right knee; M51.36 Other intervertebral disc degeneration, lumbar region; F19.90 Other psychoactive substance use, unspecified, uncomplicated; R26.9 Unspecified abnormalities of gait and mobility; Z72.0 Tobacco use; Z79.891 Long term (current) use of opiate analgesic; E66.01 Morbid (severe) obesity due to excess calories; M25.362 Other instability, left knee
CPT/HCPCS: 97110

== ENCOUNTER 2023-09-27 14:47 | Emergency (ER) | payer MEDICARE, MEDICAID, SELFPAY ==
[2021-12-24 14:27] VITALS: BP 150/89; BMI 60.4
[2023-09-27 14:55] VITALS: BP 141/96; PULSE 87; RESP 20; TEMP 37.2; O2SAT 96; BMI 59.4
--- NOTE | 2023-09-27 15:05 | XRR_ITS ---
PROCEDURE INFORMATION: Exam: XR Chest Exam date and time: 09/27/2023 3:32 PM Age: 42 years old Clinical indication: Shortness of breath; Additional info: SOB TECHNIQUE: Imaging protocol: Radiologic exam of the chest. Views: 1 view. COMPARISON: CR XR chest 1V portable [id number] 10/09/2022 3:56 PM FINDINGS: Lungs: Unremarkable. No consolidation. Pleural spaces: Unremarkable. No pleural effusion. No pneumothorax. Heart/Mediastinum: Unremarkable. No cardiomegaly. Bones/joints: Unremarkable. XR/XR chest 1V portable [id number] IMPRESSION: No acute findings.
--- NOTE | 2023-09-27 15:11 | ED_ITS ---
HPI - COVID General: Chief Complaint: COVID symptoms Stated Complaint: sob,covid+,Dr Wills sent Time Seen by Provider: 09/27/23 15:07 COVID Results: SARS-CoV-2 Antigen (Rapid) negative (Negative) 10/09/22 15:32 SARS-CoV-2 RNA (RT-PCR) TNP 10/02/21 11:31 Nasal/Oral Coronavirus 2019 PCR Not detected 04/07/21 16:25 SARS-CoV-2 (PCR) Detected (NOT DETECT) A 11/15/21 18:25 Coronavirus Type 229E (PCR) Not detected (NOT DETECT) 11/15/21 18:25 PFSH ED PFSH: Medical History Diabetes Nicotine dependence, cigarettes, uncomplicated Psychiatric care History of COPD History of restless legs syndrome History of neuropathy Chronic bronchitis Morbid obesity Common migraine with intractable migraine Borderline personality disorder Sleep apnea, unspecified Post-traumatic stress disorder, chronic Surgical History History of hysterectomy History of shoulder surgery History of tubal ligation History of endometrial ablation History of bladder repair surgery Family History Brother Diabetes Mother , Acute leukemia at age 42 Cancer Father Cancer Stage IV Kidney Cancer Grandmother Diabetes maternal Grandfather Stroke maternal Social History Smoking and tobacco/nicotine status: current every day tobacco/nicotine user (quite 06/2022) cigarettes Packs smoked per day: 1 Years cigarettes smoked: 25 [ Other cigarette details: Smoking 5 per day] Substance/Drug Use: current Substance/Drug use frequency: few times a month Other substance/drug use details: former meth user quit in 2013 Highest education level completed: Associate Degree: Occupational, Technical, Vocational Program 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, 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: No Current occupational status: disabled Do you think of yourself as: Straight/Heterosexual Current gender identity: Female Carolee/Quaker: Wicca Female Reproductive History: Para: 3 Spontaneous abortions: No Course Vital Signs: Vital signs: Vital Signs Temperature 99.0 F 09/27/23 14:55 Pulse Rate 87 09/27/23 14:55 Respiratory Rate 20 H 09/27/23 14:55 Blood Pressure 141/96 09/27/23 14:55 Pulse Oximetry 96 09/27/23 14:55 Oxygen Delivery Me thod Room Air 09/27/23 14:55 MDM - COVID Lab Data SARS-CoV-2 Antigen (Rapid) negative (Negative) 10/09/22 15:32 SARS-CoV-2 RNA (RT-PCR) TNP 10/02/21 11:31 Nasal/Oral Coronavirus 2019 PCR Not detected 04/07/21 16:25 SARS-CoV-2 (PCR) Detected (NOT DETECT) A 11/15/21 18:25 Coronavirus Type 229E (PCR) Not detected (NOT DETECT) 11/15/21 18:25 Discharge Plan Discharge Condition: Stable Prescriptions: No Action pantoprazole 40 mg tablet,delayed release (DR/EC) 40 mg PO QAM albuterol sulfate [ProAir HFA] 90 mcg/actuation HFA aerosol inhaler 2 puff INHALATION Q6H PRN (Reason: shortness of breath) albuterol sulfate 2.5 mg /3 mL (0.083 %) solution for nebulization 2.5 mg inhalation Q4H PRN (Reason: Shortness Of Breath) Ozempic 0.25 mg or 0.5 mg(2 mg/1.5 mL) pen injector 2 mg SUBCUT Q7D Rx Instructions: 1.0 MG SUBCUTANEOUSLY EVERY 7 DAYS Botox 100 unit recon soln 155 unit SUBCUT .q 3 months losartan 25 mg tablet 25 mg PO DAILY aripiprazole [Abilify] 10 mg tablet 10 mg PO QAM Qty: 30 2RF bupropion HCl 150 mg tablet extended release 24 hr 150 mg PO DAILY 30 Days Qty: 30 2RF pramipexole [Mirapex] 0.5 mg tablet 0.5 mg PO BID Qty: 60 2RF metoprolol succinate 100 mg tablet extended release 24 hr 100 mg PO BID Qty: 180 3RF montelukast [Singulair] 10 mg tablet 10 mg PO DAILY Qty: 30 3RF Trelegy Ellipta 100-62.5-25 mcg blister with device 1 inh inhalation DAILY Qty: 60 3RF sumatriptan succinate [Imitrex] 100 mg tablet 100 mg PO Q2H PRN (Reason: migraine headache) Qty: 9 6RF acetaminophen 500 mg Tablet 1,000 mg PO Q6H PRN (Reason: Pain) ibuprofen 200 mg Tablet 800 mg PO Q6H PRN (Reason: Pain) ondansetron HCl 4 mg tablet 4 mg PO Q6H PRN (Reason: nausea and vomiting) Qty: 20 0RF tizanidine 4 mg tablet 4 mg PO BID PRN (Reason: muscle spasticity) Qty: 15 0RF Effexor XR 75 mg capsule,extended release 24hr 225 mg PO QAM 30 Days Qty: 90 2RF Referrals: Marcus Wills MD [Primary Care Provider] - Coding Level of Care Code ED Artificial Teeth Inspector for Sheila Meraz
[2023-09-27 15:29] LABS: Basophils % 0.3 %; Eosinophils % 0.3 %; Hematocrit 40.4 % (36-47); Lymphocytes # 1.2 10^3/uL (0.8-4.8); Lymphocytes % 17.9 %; Mean Corpuscular HGB Conc 31.9 g/dL (30-55); Mean Corpuscular Hemoglobin 27.9 pg (27-33); Mean Corpuscular Volume 87.4 fl (85-98); Mean Platelet Volume 9.6 fL (7.4-10.4); Monocytes # 0.5 10^3/uL (0.2-0.9); Monocytes % 7.1 %; Neutrophils # 4.88 10^3/uL (1.8-7.7); Neutrophils % 73.9 %; Nucleated Red Blood Cells % 0 %; Platelet Count 232 10^3/cmm (157-399); Red Blood Count 4.62 10^6/uL (3.85-5.65); Red Cell Distribution Width 15.2 % (12.1-15.1)
--- NOTE | 2023-09-27 15:31 | ED_ITS ---
HPI - COVID 2 General: Chief Complaint: COVID symptoms Stated Complaint: sob,covid+,Dr Wills sent Time Seen by Provider: 09/27/23 15:07 Source: patient Mode of arrival: ambulatory Limitations: no limitations History of Present Illness: 42-year-old female who states she is ove r the last 4 days she has had cough congestion body aches fevers along with shortness of breath she seen her PCP today and did test positive for COVID he is concerned she has had some tachycardia and wanted her to be seen here to rule out a pulm embolism. She denies any chest pain currently. She is in no distress here. COVID 19 common symptoms: positive fever(s), chills, non-productive cough, dyspnea and body aches; negative headache(s), throat pain, nausea, vomiting or diarrhea COVID 19 other sytmptoms: negative chest pain COVID Results: 2 SARS-CoV-2 Antigen (Rapid) negative (Negative) 10/09/22 15:32 SARS-CoV-2 RNA (RT-PCR) [place] 10/02/21 11:31 Nasal/Oral Coronavirus 2019 PCR Not detected 04/07/21 16:25 SARS-CoV-2 (PCR) Detected (NOT DETECT) A 11/15/21 18:25 Coronavirus Type 229E (PCR) Not detected (NOT DETECT) 11/15/21 18:25 Review of Systems 2 Const: Reports: fever(s), chills and body aches; Denies: change in appetite Eyes: Denies: blurry vision or eye discomfort ENMT: Denies: throat pain or dental pain Card: Denies: chest pain Resp: Reports: dyspnea and non-productive cough GI: Denies: abdominal pain, nausea, vomiting or diarrhea Musc: Denies: neck pain or back pain Skin/Breast: Denies: rash Neuro: Denies: headache(s) PFSH ED 2 PFSH: Medical History Diabetes Nicotine dependence, cigarettes, uncomplicated Psychiatric care History of COPD History of restless legs syndrome History of neuropathy Chronic bronchitis Morbid obesity Common migraine with intractable migraine Borderline personality disorder Sleep apnea, unspecified Post-traumatic stress disorder, chronic Surgical History History of hysterectomy History of shoulder surgery History of tubal ligation History of endometrial ablation History of bladder repair surgery Family History Brother Diabetes Mother , Acute leukemia at age 42 Cancer Father Cancer Stage IV Kidney Cancer Grandmother Diabetes maternal Grandfather Stroke maternal Social History Smoking and tobacco/nicotine status: current every day tobacco/nicotine user (quite 06/2022) cigarettes Packs smoked per day: 1 Years cigarettes smoked: 25 [ Other cigarette details: Smoking 5 per day] Substance/Drug Use: current Substance/Drug use frequency: few times a month Other substance/drug use details: former meth user quit in 2013 Highest education level completed: Associate Degree: Occupational, Technical, Vocational Program 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, 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: No Current occupational status: disabled Do you think of yourself as: Straight/Heterosexual Current gender identity: Female Carolee/Denominational: Wicca Female Reproductive History: Para: 3 Spontaneous abortions: No Physical Exam 2 Const: COMMON NORMALS: no acute distress, patient oriented x3 and healthy appearing HENMT: COMMON NORMALS: normocephalic and atraumatic HEAD & SCALP: n ormocephalic and atraumatic Eye: COMMON NORMALS: Equal, round and reactive pupils present and EOMs intact bilaterally PUPIL: Yes Equal, round and reactive pupils present Neck/C-Spine: COMMON NORMALS: full ROM and supple Chest: COMMONS NORMALS: normal inspection of the chest and normal palpation of entire chest wall Resp: COMMON NORMALS: normal respiratory effort, No retractions, No use of accessory muscles and clear to auscultation bilaterally AUSCULTATION: clear to auscultation bilaterally Cardio: COMMON NORMALS: regular rate, regular rhythm and No murmurs present (Cardio) RATE: regular rate RHYTHM: regular rhythm GI: COMMON NORMALS: Normal to inspection, nondistended, normoactive bowel sounds present, Soft to palpation, non-tender and no masses PALPATION: Yes Soft to palpation Extremity: COMMON NORMALS: normal to inspection and full ROM Neuro: COMMON NORMALS: patient oriented x3, moves all extremities and no focal motor deficits Psych: COMMON NORMALS: mental status grossly normal, Normal thought process present and cooperative THOUGHT PROCESS: Normal thought process present Skin: COMMON NORMALS: no rashes or lesions noted and no wounds GENERAL SKIN EXAM: no rashes or lesions noted Course 2 Vital Signs: Vital signs: Vital Signs Temperature 99.0 F 09/27/23 14:55 Pulse Rate 82 09/27/23 16:12 Respiratory Rate 19 H 09/27/23 16:12 Blood Pressure 133/87 09/27/23 16:12 Pulse Oximetry 94 09/27/23 16:12 Oxygen Delivery Me thod Room Air 09/27/23 15:33 MDM - COVID Medical Decision Making Patient presents here with COVID she is here for rule out PE her D-dimer is negative she has no signs of having a PE here she is stable for discharge she has Paxil but already called into her pharmacy she is return if worsening she understands agrees to plan. Medical Records I reviewed the patient's medical records. Lab Data I reviewed the patient's lab results. 09/27/23 15:23 09/27/23 15:23 Radiology Impressions Chest X-Ray 09/27/23 15:05 IMPRESSION: No acute findings. Laboratory Results WBC 6.60 10^3/uL (3.29-11.43) 09/27/23 15: RBC 4.62 10^6/uL (3.85-5.65) 09/27/23 15:23 Hgb 12.90 g/dL (11.27-16.99) 09/27/23 15:23 Hct 40.4 % (36-47) 09/27/23 15: MCV 87.4 fl (85-98) 09/27/23 15:23 MCH 27.9 pg (27-33) 09/27/23 15:23 MCHC 31.9 g/dL (30-55) 09/27/23 15: RDW 15.2 % (12.1-15.1) H 09/27/23 15: Plt Count 232 10^3/cmm (157-399) 09/27/23 15: MPV 9.6 fL (7.4-10.4) 09/27/23 15:23 Neut % (Auto) 73.9 % 09/27/23 15: Lymph % (Auto) 17.9 % 09/27/23 15:23 [place] % (Auto) 7.1 % 09/27/23 15:23 Eos % (Auto) 0.3 % 09/27/23 15: Baso % (Auto) 0.3 % 09/27/23 15: Neut # (Auto) 4.88 10^3/uL (1.8-7.7) 09/27/23 15: Lymph # (Auto) 1.2 10^3/uL (0.8-4.8) 09/27/23 15: [place] # (Auto) 0.5 10^3/uL (0.2-0.9) 09/27/23 15: Eos # (Auto) 0.0 10^3/uL (0.0-0.8) 09/27/23: Baso # (Auto) 0.0 10^3/uL (0.0-0.1) 09/27/23: Nucleated RBC % (auto) 0 % 09/27/23: Nucleated RBCs # 0.0 /100WBC 09/27/23 15: D-Dimer 0.52 ug/mLFEU (0-0.59) 09/27/23 15:23 Sodium 134 mmol/L (136-145) L 09/27/23 15: Potassium 4.4 mmol/L (3.5-5.1) 09/27/23 15: Chloride 98 mmol/L (98-107) 09/27/23 15: Carbon Dioxide 28 mmol/L (22-29) 09/27/23 15: Anion Gap 12.4 (5-19) 09/27/23 15: BUN 9 mg/dL (6-20) 09/27/23 15:23 Creatinine 0.6 mg/dL (0.5-0.9) 09/27/23 15: GFR Calculation 108.6 mL/min (90-130) 09/27/23 15: Glucose 246 mg/dL (65-115) H 09/27/23 15: Calculated Osmolality 285 mOsm/kg (285-295) 09/27/23 15: Calcium 8.8 mg/dL (8.5-10.5) 09/27/23 15: Total Bilirubin 0.3 mg/dL (0.15-1.2) 09/27/23 15:23 AST 35 U/L (0-32) H 09/27/23 15:23 ALT 39 U/L (0-33) H 09/27/23 15:23 Alkaline Phosphatase 98 U/L (35-105) 09/27/23 15:23 Total Protein 7.2 g/dL (6.6-8.7) 09/27/23 15:23 Albumin 3.9 g/dL (3.5-5.2) 09/27/23 15:23 Globulin 3.3 g/dL (1.3-4.6) 09/27/23 15:23 2 SARS-CoV-2 Antigen (Rapid) negative (Negative) 10/09/22 15:32 SARS-CoV-2 RNA (RT-PCR) TNP 10/02/21 11:31 Nasal/Oral Coronavirus 2019 PCR Not detected 04/07/21 16:25 SARS-CoV-2 (PCR) Detected (NOT DETECT) A 11/15/21 18:25 Coronavirus Type 229E (PCR) Not detected (NOT DETECT) 11/15/21 18:25 All radiology interpretation(s) finalized by discharge Discharge Plan Discharge Patient Disposition: Home Clinical Impression: COVID-19 Condition: Stable Prescriptions: No Action pantoprazole 40 mg tablet,delayed release (DR/EC) 40 mg PO QAM albuterol sulfate [ProAir HFA] 90 mcg/actuation HFA aerosol inhaler 2 puff INHALATION Q6H PRN (Reason: shortness of breath) albuterol sulfate 2.5 mg /3 mL (0.083 %) solution for nebulization 2.5 mg inhalation Q4H PRN (Reason: Shortness Of Breath) Ozempic 0.25 mg or 0.5 mg(2 mg/1.5 mL) pen injector 2 mg SUBCUT Q7D Rx Instructions: 1.0 MG SUBCUTANEOUSLY EVERY 7 DAYS Botox 100 unit recon soln 155 unit SUBCUT .q 3 months losartan 25 mg tablet 25 mg PO DAILY aripiprazole [Abilify] 10 mg tablet 10 mg PO QAM Qty: 30 2RF bupropion HCl 150 mg tablet extended release 24 hr 150 mg PO DAILY 30 Days Qty: 30 2RF pramipexole [Mirapex] 0.5 mg tablet 0.5 mg PO BID Qty: 60 2RF metoprolol succinate 100 mg tablet extended release 24 hr 100 mg PO BID Qty: 180 3RF montelukast [Singulair] 10 mg tablet 10 mg PO DAILY Qty: 30 3RF Trelegy Ellipta 100-62.5-25 mcg blister with device 1 inh inhalation DAILY Qty: 60 3RF sumatriptan succinate [Imitrex] 100 mg tablet 100 mg PO Q2H PRN (Reason: migraine headache) Qty: 9 6RF acetaminophen 500 mg Tablet 1,000 mg PO Q6H PRN (Reason: Pain) ibuprofen 200 mg Tablet 800 mg PO Q6H PRN (Reason: Pain) ondansetron HCl 4 mg tablet 4 mg PO Q6H PRN (Reason: nausea and vomiting) Qty: 20 0RF tizanidine 4 mg tablet 4 mg PO BID PRN (Reason: muscle spasticity) Qty: 15 0RF Effexor XR 75 mg capsule,extended release 24hr 225 mg PO QAM 30 Days Qty: 90 2RF Discharge Orders: Discharge ED (Routine); Ordered 09/27/23 Ordered By: Rose Suazo Referrals: Marcus Wills MD [Primary Care Provider] - Discharge Diet: Advance as tolerated Discharge Activity: Resume usual activity Patient Instructions: COVID-19 (Coronavirus Disease 2019) (ED) Coding Level of Care Code ED Back Line Cook for Sheila Meraz
[2023-09-27 15:32] VITALS: BP 142/83; PULSE 83; RESP 20; O2SAT 95
[2023-09-27 15:33] VITALS: O2SAT 95
[2023-09-27] MEDS: sodium chloride 0.9% 500 ML 999 ML IV (15:49)
[2023-09-27] MEDS: dexamethasone 10 mg/mL INJ IVP (15:51)
[2023-09-27 15:56] LABS: D Dimer 0.52 ug/mLFEU (0-0.59)
[2023-09-27 15:57] LABS: Alanine Aminotransferase 39 U/L (0-33); Albumin Level 3.9 g/dL (3.5-5.2); Alkaline Phosphatase 98 U/L (35-105); Anion Gap 12.4 (5-19); Aspartate Amino Transferase 35 U/L (0-32); Blood Urea Nitrogen 9 mg/dL (6-20); Calcium 8.8 mg/dL (8.5-10.5); Carbon Dioxide 28 mmol/L (22-29); Chloride 98 mmol/L (98-107); Globulin 3.3 g/dL (1.3-4.6); Glomerular Filtration Rate 108.6 mL/min (90-130); Glucose 246 mg/dL (65-115); Osmolality Calculated 285 mOsm/kg (285-295); Potassium 4.4 mmol/L (3.5-5.1); Sodium 134 mmol/L (136-145); Total Bilirubin 0.3 mg/dL (0.15-1.2); Total Protein 7.2 g/dL (6.6-8.7)
--- NOTE | 2023-09-27 16:05 | ECG_ITS ---
[facility] Test Date: 2023-09-27 Pat Name: Laila Mcclain Department: Room: Gender: Female Special Event Assistant: : 1980 Requested By: Rose Suazo Order Number: [id number] Edu MD: Samara Hopson M.D. Measurements Intervals [place] Rate: 78 P: 33 TX: 148 QRS: 38 QRSD: 94 T: 39 QT: 362 QTc: 414 Interpretive Statements SINUS RHYTHM Compared to ECG 02/23/2022 11:07:10 No significant changes Electronically Signed On 09-27-2023 22:14:38 CERTIFIED MEDICAL CODING SPECIALIST by Samara Hopson M.D. [id number]
[2023-09-27 16:12] VITALS: BP 133/87; PULSE 82; RESP 19; O2SAT 94
[2023-09-27] MEDS: ketorolac 30 mg/mL INJ 15 MG IVP (16:19)
[2023-09-27 16:21] VITALS: BP 133/87; PULSE 84; RESP 19; O2SAT 94
== END 2023-09-27 16:29 | disposition home or self-care (01) ==
PROVIDERS: Emergency Provider Emergency Medicine; PCP Family Medicine
DX: U07.1 COVID-19 (principal); F17.210 Nicotine dependence, cigarettes, uncomplicated; E11.9 Type 2 diabetes mellitus without complications; J44.9 Chronic obstructive pulmonary disease, unspecified
CPT/HCPCS: 36415; 71045; 80053; 85025; 85378; 93005; 96361; 96374; 96375; 99285; J1100; J1885; J7040

== ENCOUNTER → 2023-10-27 11:42 | Outpatient (BNVA) | payer MEDICARE, MEDICAID, SELFPAY ==
[2023-10-18 15:52] VITALS: BP 133/87; BMI 59.4
== END ==
PROVIDERS: PCP Family Medicine; Visit Provider Specialist
DX: G43.711 Chronic migraine without aura, intractable, with status migrainosus (principal)
CPT/HCPCS: 64615; J0585

== ENCOUNTER 2023-11-13 11:06 | Inpatient (IN) | payer MEDICARE, MEDICAID, SELFPAY ==
[2023-10-18 15:52] VITALS: BP 133/87; BMI 59.4
[2023-11-13 11:15] VITALS: BP 152/112; PULSE 93; RESP 18; TEMP 36.9; O2SAT 97; BMI 57.3
--- NOTE | 2023-11-13 11:56 | ED.C_ITS ---
HPI - Psych 2 General: Chief Complaint: Psychiatric Symptoms Stated Complaint: PSYCH EVAL Time Seen by Provider: 11/13/23 11:10 History of Present Illness: 43-year-old female presents to the emerg ency department stating that she has had a longstanding history of depression and has become more depressed lately. She states she does take antidepressant medications but feels that they are not working as well as they used to. She states she started having suicidal ideations approximately 3 days ago and last night she thought very seriously about taking all of her pills and ending her life. Patient states that her daughter took and locked up all of her medications so that she could not harm herself. She states she has become more tearful and depressed and states that this morning she went to a neighbor's house and told him that she wanted to and was going to take all of her pills to accomplish this. The neighbor called EMS and the patient stated she would come to the hospital for evaluation. Patient states that she has not taken any excessive amounts of pills because her daughter secured them and only gave her the prescribed amounts. The patient states that she has had previous suicide attempts by ingestion of pills and has also been inpatient in a psychiatric treatment facility. Associated symptoms: Reports depression and suicidal ideation; Deny auditory hallucinations, visual hallucinations or homicidal ideation Review of Systems 2 General: Reports: 10 or more systems reviewed and unremarkable except in HPI and below Psych: Reports: depression and suicidal ideation; Denies: visual hallucinations, auditory hallucinations, tactile hallucinations or homicidal ideation [facility] ED 2 PFSH: Medical History Diabetes Nicotine dependence, cigarettes, uncomplicated Psychiatric care History of COPD History of restless legs syndrome History of neuropathy Chronic bronchitis Morbid obesity Common migraine with intractable migraine Borderline personality disorder Sleep apnea, unspecified Post-traumatic stress disorder, chronic Surgical History History of hysterectomy History of shoulder surgery History of tubal ligation History of endometrial ablation History of bladder repair surgery Family History Brother Diabetes Mother , Acute leukemia at age 42 Cancer Father Cancer Stage IV Kidney Cancer Grandmother Diabetes maternal Grandfather Stroke maternal Social History Smoking and tobacco/nicotine status: current every day tobacco/nicotine user (quite 06/2022) cigarettes Packs smoked per day: 1 Years cigarettes smoked: 25 [ Other cigarette details: Smoking 5 per day] Substance/Drug Use: current Substance/Drug use frequency: few times a month Other substance/drug use details: former meth user quit in 2013 Highest education level completed: Associate Degree: Occupational, Technical, Vocational Program 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 Vital signs as documented. No acute distress at present. Alert and oriented-to person, place, time and situation. Head, eyes, ears, nose, mouth, throat: Normocephalic, atraumatic. Pupils-equal, round, reactive to light. No scleral icterus. Normal-appearing external ears. Normal appearing nasal turbinates, no drainage. No obvious oral lesions, posterior oropharynx without erythema or exudates. Neck: Supple, trachea is midline, no lymphadenopathy, no jugular venous distension, thyromegaly, or carotid bruits. Carotid upstrokes are brisk bilaterally. Lungs: clear to auscultation to all lung mello. Symmetrical rise and fall of chest, no obvious signs of increased work of breathing at present. Cardiac: Regular rate and rhythm, positive S1, S2. No murmurs, rubs or gallops that I can appreciate Abdomen: Soft, non-tender to palpation, normal active bowel sounds to all quadrants. No palpable masses, no organomegaly and abdominal bruits. Extremities: 2+ pulses in the upper extremities that are equal bilaterally, 2+ pulses in the lower extremities that are equal bilaterally. Non-edematous. Moves all extremities well, sensation to all extremities are noted. Skin: Warm, dry, intact. Psychiatric: Depressed, tearful, poor eye contact, Course 2 Reevaluation(s): Reevaluation #1: Reevaluation the patient demonstrates that she continues to be cooperative and calm at present. She still is intermittently tearful. I have advised the patient that I contacted the on-call and admitting psychiatrist and he excepted her for admission he did request that I place a 96-hour hold on her given her previous suicide attempts as well as her present suicidal ideation with plan and I will fill out the 96-hour hold paperwork to ensure that she receives the care that she needs from psychiatry. Time: 13:13 Vital Signs: Vital signs: Vital Signs Temperature 97.8 F 11/13/23 14:19 Pulse Rate 87 11/13/23 14:19 Respiratory Rate 16 11/13/23 14:19 Blood Pressure 123/81 11/13/23 14:19 Pulse Oximetry 93 11/13/23 14:19 Oxygen Delivery Me thod Room Air 11/13/23 14:19 MDM - Psych Medical Decision Making Physical exam completed and documented, I will obtain psychiatric medical clearance laboratory evaluation, and a twelve-lead EKG and contact our on-call psychiatrist for admission to the inpatient psychiatric unit. Medical Records I reviewed the patient's medical records. Lab Data I reviewed the patient's lab results. 11/13/23 12:30 11/13/23 12:30 Laboratory Results WBC 8.47 10^3/uL (3.29-11.43) 11/13/23 12:30 RBC 4.80 10^6/uL (3.85-5.65) 11/13/23 12:30 Hgb 13.40 g/dL (11.27-16.99) 11/13/23 12:30 Hct 42.5 % (36-47) 11/13/23 12:30 MCV 88.5 fl (85-98) 11/13/23 12:30 MCH 27.9 pg (27-33) 11/13/23 12:30 MCHC 31.5 g/dL (30-55) 11/13/23 12:30 RDW 14.6 % (12.1-15.1) 11/13/23 12:30 Plt Count 244 10^3/cmm (157-399) 11/13/23 12:30 MPV 9.5 fL (7.4-10.4) 11/13/23 12:30 Neut % (Auto) 82.5 % 11/13/23 12:30 Lymph % (Auto) 8.6 % 11/13/23 12:30 [place] % (Auto) 5.5 % 11/13/23 12:30 Eos % (Auto) 2.8 % 11/13/23 12:30 Baso % (Auto) 0.2 % 11/13/23 12:30 Neut # (Auto) 6.98 10^3/uL (1.8-7.7) 11/13/23 12:30 Lymph # (Auto) 0.7 10^3/uL (0.8-4.8) L 11/13/23 12:30 [place] # (Auto) 0.5 10^3/uL (0.2-0.9) 11/13/23 12:30 Eos # (Auto) 0.2 10^3/uL (0.0-0.8) 11/13/23 12:30 Baso # (Auto) 0.0 10^3/uL (0.0-0.1) 11/13/23 12:30 Nucleated RBC % (auto) 0 % 11/13/23 12:30 Nucleated RBCs # 0.0 /100WBC 11/13/23 12:30 Sodium 134 mmol/L (136-145) L 11/13/23 12:30 Potassium 4.3 mmol/L (3.5-5.1) 11/13/23 12:30 Chloride 99 mmol/L (98-107) 11/13/23 12:30 Carbon Dioxide 28 mmol/L (22-29) 11/13/23 12:30 Anion Gap 11.3 (5-19) 11/13/23 12:30 BUN 12 mg/dL (6-20) 11/13/23 12:30 Creatinine 0.5 mg/dL (0.5-0.9) 11/13/23 12:30 GFR Calculation 133.4 mL/min (90-130) H 11/13/23 12:30 Glucose 170 mg/dL (65-115) H 11/13/23 12:30 Calculated Osmolality 282 mOsm/kg (285-295) L 11/13/23 12:30 Calcium 8.7 mg/dL (8.5-10.5) 11/13/23 12:30 Total Bilirubin 0.3 mg/dL (0.15-1.2) 11/13/23 12:30 AST 20 U/L (0-32) 11/13/23 12:30 ALT 25 U/L (0-33) 11/13/23 12:30 Alkaline Phosphatase 89 U/L (35-105) 11/13/23 12:30 Total Protein 6.9 g/dL (6.6-8.7) 11/13/23 12:30 Albumin 3.6 g/dL (3.5-5.2) 11/13/23 12:30 Globulin 3.3 g/dL (1.3-4.6) 11/13/23 12:30 TSH 0.68 uIU/mL (0.27-4.20) 11/13/23 12:30 HCG, Qual Negative (Negative) 11/13/23 11:19 Urine Color Yellow (Yellow) 11/13/23 11:19 Urine Appearance Sl hazy (CLEAR) A 11/13/23 11:19 Urine pH 7 (5-7) 11/13/23 11:19 Ur Specific [place] 1.010 (1.005-1.030) 11/13/23 11:19 Urine Protein Neg (Negative) 11/13/23 11:19 Urine Glucose (UA) Norm (Normal) 11/13/23 11:19 Urine Ketones Negative (Negative) 11/13/23 11:19 Urine Blood Neg (Negative) 11/13/23 11:19 Urine Nitrate Negative (Negative) 11/13/23 11:19 Urine Bilirubin Neg (Negative) 11/13/23 11:19 Urine Urobilinogen Neg mg/dL (Negative) 11/13/23 11:19 Ur Leukocyte Esterase Negative (Negative) 11/13/23 11:19 Urine RBC 0-4 /hpf (0-2) H 11/13/23 11:19 Urine WBC 0-4 /hpf (0-5) H 11/13/23 11:19 Ur Squamous Epith Cells 5-10 /hpf (0-5) H 11/13/23 11:19 Amorphous Sediment Not Reportable 11/13/23 11:19 Urine Bacteria 1+ /hpf (NONE) H 11/13/23 11:19 Urine Mucus Trace /hpf 11/13/23 11:19 Salicylates < 0.3 mg/dL (3-10) L 11/13/23 12:30 Urine Opiates Screen Negative ng/mL (Negative) 11/13/23 11:19 Acetaminophen < 5.0 ug/mL (10-30) L 11/13/23 12:30 Ur Barbiturates Screen Negative ng/mL (Negative) 11/13/23 11:19 Ur Phencyclidine Scrn Negative ng/mL (Negative) 11/13/23 11:19 Ur Amphetamines Screen Negative ng/mL (Negative) 11/13/23 11:19 U Benzodiazepines Scrn Negative ng/mL (Negative) 11/13/23 11:19 Urine Cocaine Screen Negative ng/mL (Negative) 11/13/23 11:19 U Marijuana (THC) Screen Positive ng/mL (Negative) H 11/13/23 11:19 Ethyl Alcohol < 10 mg/dL (0-10) 11/13/23 12:30 No radiology studies performed this visit EKG Data EKG 1: Interpretation: Twelve-lead EKG obtained at 1201 reviewed at 1202 demonstrates sinus rhythm with a ventricular rate of 82 bpm, MS interval 149, QRS duration 88, QT 343, QTc 383. There is no ST elevation or depression to demonstrate acute ischemia or infarction at present. Discharge Plan Discharge Patient Disposition: Admitted As Inpatient Admit Provider: Piter Wiley Clinical Impression: Suicidal ideations, Depression Condition: Stable Coding Level of Care Code ED Form Worker for Sheila Meraz
--- NOTE | 2023-11-13 11:56 | ECG_ITS ---
[facility] Test Date: 2023-11-13 Pat Name: Laila Mcclain Department: Room: Gender: Female Loom Stop Checker: : 1980 Requested By: Yoandy Badillo Order Number: [id number] Edu MD: Gerald Reddy M.D. Measurements Intervals [place] Rate: 82 P: 28 [place]: 149 QRS: 40 QRSD: 88 T: 44 QT: 344 QTc: 404 Interpretive Statements SINUS RHYTHM Compared to ECG 09/27/2023 16:05:34 No significant changes Electronically Signed On 11-14-2023 9:47:23 PRINT DEVELOPER by Gerald Reddy M.D. [email or web address]/store/[id number]
[2023-11-13 12:37] LABS: HCG Qualitative Urine. Negative (Negative)
[2023-11-13 12:39] LABS: Basophils % 0.2 %; Eosinophils # 0.2 10^3/uL (0.0-0.8); Eosinophils % 2.8 %; Hematocrit 42.5 % (36-47); Lymphocytes # 0.7 10^3/uL (0.8-4.8); Lymphocytes % 8.6 %; Mean Corpuscular HGB Conc 31.5 g/dL (30-55); Mean Corpuscular Hemoglobin 27.9 pg (27-33); Mean Corpuscular Volume 88.5 fl (85-98); Mean Platelet Volume 9.5 fL (7.4-10.4); Monocytes # 0.5 10^3/uL (0.2-0.9); Monocytes % 5.5 %; Neutrophils # 6.98 10^3/uL (1.8-7.7); Neutrophils % 82.5 %; Nucleated Red Blood Cells % 0 %; Platelet Count 244 10^3/cmm (157-399); Red Cell Distribution Width 14.6 % (12.1-15.1); White Blood Count 8.47 10^3/uL (3.29-11.43)
[2023-11-13 12:45] LABS: Amphetamines Screen Urine Negative (Negative); Barbiturates Screen Urine Negative (Negative); Benzodiazepines Screen Urine Negative (Negative); Cocaine Screen Urine Negative (Negative); Opiate Screen Urine Negative (Negative); PCP Screen Urine Negative (Negative); THC Screen Urine Positive (Negative)
[2023-11-13 12:48] LABS: Urine Appearance SL Hazy (CLEAR); Urine Color Yellow (Yellow); pH Urine 7 (5-7)
[2023-11-13 12:49] LABS: Add Urine Culture? No; Add Urine Microscopic? YES; Bacteria Urine 1+ /hpf; Bilirubin Urine Neg (Negative); Blood Urine Neg (Negative); Glucose Urine UA Norm (Normal); Ketones Urine Negative (Negative); Leukocyte Esterase Urine Negative (Negative); Mucus Urine TRACE /hpf; Nitrate Urine Negative (Negative); Protein Urine Neg (Negative); RBC Urine 0-4 /hpf (0-2); Urobilinogen Urine Neg (Negative); WBC Urine 0-4 /hpf (0-5)
[2023-11-13 13:09] LABS: Alanine Aminotransferase 25 U/L (0-33); Albumin Level 3.6 g/dL (3.5-5.2); Alkaline Phosphatase 89 U/L (35-105); Anion Gap 11.3 (5-19); Aspartate Amino Transferase 20 U/L (0-32); Blood Urea Nitrogen 12 mg/dL (6-20); Calcium 8.7 mg/dL (8.5-10.5); Carbon Dioxide 28 mmol/L (22-29); Chloride 99 mmol/L (98-107); Globulin 3.3 g/dL (1.3-4.6); Glomerular Filtration Rate 133.4 mL/min (90-130); Glucose 170 mg/dL (65-115); Osmolality Calculated 282 mOsm/kg (285-295); Potassium 4.3 mmol/L (3.5-5.1); Salicylate < 0.3 mg/dL (3-10); Sodium 134 mmol/L (136-145); Thyroid Stimulating Hormone 0.68 uIU/mL (0.27-4.20); Total Bilirubin 0.3 mg/dL (0.15-1.2); Total Protein 6.9 g/dL (6.6-8.7)
[2023-11-13 13:10] LABS: Acetaminophen < 5.0 ug/mL (10-30); Alcohol Level < 10 mg/dL (0-10)
[2023-11-13 14:19] VITALS: BP 123/81; PULSE 87; RESP 16; TEMP 36.6; O2SAT 93
--- NOTE | 2023-11-13 15:37 | PC.NURSE ---
PT ARRIVED TO THE EMERGENCY DEPARTMENT VIA EMS FOR SUICIDAL IDEATION WITH INTENT TO OVERDOSE. PT WAS HAVING THOUGHTS OF OVERDOSING PREVIOUS NIGHT HOWEVER, DAUGHTER WAS STAYING WITH HER AND INTERVENED BY REMOVING ALL MEDICATIONS FROM PT AND LOCKING THEM UP. THIS MORNING PT WAS TO HAVE BEEN REPORTED TO HAVE BEEN WITH A FRIEND LOOKING FOR MEDICATIONS TO OVERDOSE WHO CONTACTED THE EMS. UPON ADMIT TO THE NPU PT STATES THAT SHE IS DEPRESSED AND DOESN'T WANT TO LIVE ANYMORE. PT ADMIT TO OCCASIONAL USE OF MARIJUANA GUMMIES.
[2023-11-13] MEDS: ibuprofen 200 mg Tablet 800 MG PO (17:08)
[2023-11-13 20:32] VITALS: BP 143/77; PULSE 92; RESP 20; TEMP 36.6; O2SAT 94
[2023-11-13] MEDS: metoprolol succinate ER (24 HR) 100 mg Tablet PO (21:06)
[2023-11-13] MEDS: montelukast sodium 10 mg Tablet PO (21:06)
[2023-11-13] MEDS: pramipexole 0.25 mg Tablet 0.5 MG PO (21:06)
[2023-11-14] VITALS (10 sets, daily range): BP systolic 106–117; BP diastolic 68–73; PULSE 79–98; RESP 13–18; TEMP 36.3–37.2; O2SAT 90–97
[2023-11-14] MEDS: albuterol 2.5 mg/3 mL Neb INHALATION (01:42)
[2023-11-14] MEDS: ibuprofen 200 mg Tablet 800 MG PO ×2 (04:30→19:38)
[2023-11-14] MEDS: venlafaxine ER (24HR) 75 mg Capsule 225 MG PO (07:35)
[2023-11-14] MEDS: ARIPiprazole 10 mg Tablet PO (07:36)
[2023-11-14] MEDS: metoprolol succinate ER (24 HR) 100 mg Tablet PO ×2 (07:36→19:39)
[2023-11-14] MEDS: losartan 50 mg Tablet 25 MG PO (07:36)
[2023-11-14] MEDS: hyDROXYzine 25 mg Capsule 50 MG PO (07:37)
[2023-11-14] MEDS: buPROPion XL (24 HR) 150 mg Tablet PO (07:37)
[2023-11-14] MEDS: pramipexole 0.25 mg Tablet 0.5 MG PO ×2 (07:37→19:39)
[2023-11-14] MEDS: pantoprazole DR 40 mg Tablet PO (07:38)
[2023-11-14] MEDS: ipratropium-albuterol 3 mL Neb INHALATION ×4 (08:41→21:55)
[2023-11-14] MEDS: budesonide 0.5 mg/2 mL Neb INHALATION ×2 (08:41→21:55)
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
[2023-11-14] MEDS: montelukast sodium 10 mg Tablet PO (19:39)
[2023-11-15] VITALS (9 sets, daily range): BP systolic 90–127; BP diastolic 53–77; PULSE 77–85; RESP 16–18; TEMP 36.3–37.2; O2SAT 93–96
[2023-11-15] MEDS: ibuprofen 200 mg Tablet 800 MG PO ×2 (05:41→20:15)
[2023-11-15] MEDS: hyDROXYzine 25 mg Capsule 50 MG PO (06:17)
[2023-11-15] MEDS: ipratropium-albuterol 3 mL Neb INHALATION ×4 (07:56→20:35)
[2023-11-15] MEDS: budesonide 0.5 mg/2 mL Neb INHALATION ×2 (07:56→20:35)
[2023-11-15] MEDS: buPROPion XL (24 HR) 300 mg Tablet PO (08:41)
[2023-11-15] MEDS: metoprolol succinate ER (24 HR) 100 mg Tablet PO ×2 (08:42→20:15)
[2023-11-15] MEDS: pramipexole 0.25 mg Tablet 0.5 MG PO ×2 (08:42→20:15)
[2023-11-15] MEDS: losartan 50 mg Tablet 25 MG PO (08:42)
[2023-11-15] MEDS: venlafaxine ER (24HR) 75 mg Capsule 225 MG PO (08:43)
[2023-11-15] MEDS: pantoprazole DR 40 mg Tablet PO (08:43)
[2023-11-15] MEDS: ARIPiprazole 10 mg Tablet PO (08:43)
[2023-11-15] MEDS: OLANZapine 5 mg ODT PO (09:21)
--- NOTE | 2023-11-15 14:42 | W.PM.NPUPNS ---
Subjective NPU Subjective: Laila is a 43-year-old white female with borderline personality disorder major depressive disorder PTSD admitted with suicidal ideation and depression. The patient had reported that she was feeling better today. She continued to endorse depressed mood but reported that she was having less thoughts of hurting herself. She had reported adequate sleep. She had reported having chronic problems with migraine headaches. She had reported having some increased motivation if she had children in the home and stated that she was doing her best to try to stay mentally healthy. She had reported that she had missed her therapy appointment today at the [facility] but reported that she would like to see them again next week. She was cooperative and compliant on the milieu. She was able to attend groups without any difficulty. Mental Status Exam MSE Comments: She is obese white female who was pleasant and cooperative on interview. There was mild psychomotor retardation appreciated. Her speech was normal in regards to rate rhythm and prosody. Her hygiene was fair. There was no evidence of abnormal involuntary motor movements tics or tremors. Her attention span appeared adequate. Her recent and remote memory appeared grossly intact. Her mood was described as better today. Her affect was mood incongruent and restricted in range. She endorsed no suicidal thoughts with no active plan. She denied any homicidal ideation. There was no evidence of any delusional thinking. She did not appear to be responding to internal stimuli. Her insight was fair, Her judgment is poor. Her impulse control was poor. Vitals/I&O/Wt Last Vital Signs Temp 98.4 F 11/15/23 14:00 Pulse 81 11/15/23 14:00 Resp 16 11/15/23 14:00 BP 98/53 11/15/23 14:00 Pulse Ox 94 11/15/23 14:00 O2 Del Method Room Air 11/15/23 14:00 11/14/23 11/15/23 11/15/23 22:59 06:59 14:59 Intake Total 480 / 480 Balance 480 / 480 Data NPU 11/13/23 12:30 11/13/23 12:30 A&P Assessment and plan (1) Major depressive disorder: (2) Borderline personality disorder: (3) Post-traumatic stress disorder, chronic: (4) Sleep apnea, unspecified: Qualifiers: Sleep apnea type: unspecified type Qualified Code(s): G47.30 - Sleep apnea, unspecified Plan This is a 42-year-old white female with borderline personality disorder,posttraumatic stress disorder, and major depressive disorder recurrent admitted with suicidal ideation with plan to overdose on medications. 1. Continue Effexor XR 225mg in am, Abilify 10mg daily and wellbutrin xl to 300mg in am. 2. Encourage individual, group and milieu therapy 3. Continue q-15 minute check for safety 4. Recommend sober living treatment at the highest level of care to which the patient is willing to commit. 5. Will attempt to gather collateral information. Involuntary Hold Information 96 Hour Hold: 96 Hour Involuntary Admission: Yes 96 Hour Hold Ending Date: 11/18/23 96 Hour Hold Ending Time: 00:01 Attestations NPU Medical Necessity Statement*: Inpatient hospitalization is medically necessary and the clinically appropriate intervention at this time. We will monitor medications and make changes as indicated. Patient will be in the hospital for at least two midnights. Likely length of stay is 1-2 days. Coding Level of Care Code Acute Code for [facility] Diagnoses Major depressive disorder F32.9 Borderline personality disorder F60.3 Post-traumatic stress disorder, chronic F43.12 Sleep apnea, unspecified type G47.30 Sleep apnea type: unspecified type
[2023-11-15] MEDS: montelukast sodium 10 mg Tablet PO (20:15)
[2023-11-16] VITALS (8 sets, daily range): BP systolic 93–107; BP diastolic 56–67; PULSE 73–88; RESP 16–17; O2SAT 94–98
[2023-11-16] MEDS: ibuprofen 200 mg Tablet 800 MG PO (04:03)
[2023-11-16] MEDS: albuterol 2.5 mg/3 mL Neb INHALATION (05:25)
[2023-11-16] MEDS: ipratropium-albuterol 3 mL Neb INHALATION ×2 (07:19→11:29)
[2023-11-16] MEDS: budesonide 0.5 mg/2 mL Neb INHALATION (07:19)
[2023-11-16] MEDS: pramipexole 0.25 mg Tablet 0.5 MG PO (08:41)
[2023-11-16] MEDS: buPROPion XL (24 HR) 300 mg Tablet PO (08:41)
[2023-11-16] MEDS: pantoprazole DR 40 mg Tablet PO (08:41)
[2023-11-16] MEDS: ARIPiprazole 10 mg Tablet PO (08:42)
[2023-11-16] MEDS: losartan 50 mg Tablet 25 MG PO (08:42)
[2023-11-16] MEDS: metoprolol succinate ER (24 HR) 100 mg Tablet PO (08:42)
[2023-11-16] MEDS: venlafaxine ER (24HR) 75 mg Capsule 225 MG PO (08:46)
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
== END 2023-11-16 13:15 | disposition home or self-care (01) | DRG 885 ==
LOC: ER 12:20 → NP 13:19
PROVIDERS: Admitting Provider Psychiatry & Neurology Psychiatry; Emergency Provider Internal Medicine; PCP Family Medicine; Visit Provider Psychiatry & Neurology Psychiatry
DX: F33.9 Major depressive disorder, recurrent, unspecified (principal); R45.851 Suicidal ideations; F43.12 Post-traumatic stress disorder, chronic; F60.3 Borderline personality disorder; I10 Essential (primary) hypertension; K21.9 Gastro-esophageal reflux disease without esophagitis; G43.909 Migraine, unspecified, not intractable, without status migrainosus; F17.210 Nicotine dependence, cigarettes, uncomplicated
CPT/HCPCS: 36415; 80053; 80306; 80307; 81001; 81025; 84443; 85025; 93005; 94640; 97150; 97165; 99285; J7613; J7626

== ENCOUNTER 2023-12-15 07:41 | Outpatient (CLI) | payer MEDICARE, MEDICAID, SELFPAY ==
[2023-10-18 15:52] VITALS: BP 133/87; BMI 59.4
--- NOTE | 2023-12-15 07:46 | MR_ITS ---
WS: [id number] MRI LUMBAR SPINE NONCONTRAST HISTORY: DDD LUMBAR COMPARISON: None available. TECHNIQUE: Sagittal and axial multisequence imaging is submitted. Quality of this examination is compromised by patient's body habitus. Posterior alignment appears normal. Disc bases are mildly desiccated. Disc spaces and vertebral body heights are well-preserved. Conus terminates normally at L1-2 disc level. L1-L2: Normal. L2-L3: Mild annular disc bulging and facet arthritis. No stenosis. L3-L4: Mild annular disc bulging. Mild bilateral facet joint arthritis and foraminal stenosis. There is very mild central and bilateral foraminal stenosis. L4-L5: Moderate annular disc bulging with marked ligamentum flavum and facet arthritis. There is a sh allow LEFT foraminal disc protrusion. Additional small RIGHT foraminal disc protrusion contacts the R IGHT exiting L4 nerve root. Small vertebral body osteophytes. Mild central, bilateral subarticular re cess and foraminal stenosis. There is disc contact on the traversing L5 nerve roots. L5-S1: Mild disc bulging. Mild facet arthritis. No stenosis. Paravertebral soft tissues are normal. IMPRESSION: 1. Quality of this examination is compromised by body habitus. 2. L4-5: Mild central, bilateral subarticular recess and foraminal stenosis. Disc contacts the trave rsing L5 nerve roots. Small bilateral foraminal disc protrusions. The RIGHT foraminal disc protrusion contacts the RIGHT exiting L4 nerve root. 3. L3-4: Mild central and bilateral foraminal stenosis.
== END 2023-12-15 07:42 | disposition home or self-care (01) ==
LOC: RAD 07:42
PROVIDERS: PCP Family Medicine; Visit Provider Nurse Practitioner Family
DX: M51.36 Other intervertebral disc degeneration, lumbar region (principal)
CPT/HCPCS: 72148

== ENCOUNTER 2024-01-05 11:01 | Emergency (ER) | payer MEDICARE, MEDICAID, SELFPAY ==
[2023-10-18 15:52] VITALS: BP 133/87; BMI 59.4
[2024-01-05 11:13] VITALS: PULSE 97; RESP 18; TEMP 36.7; O2SAT 97; BMI 56.9
--- NOTE | 2024-01-05 11:39 | ED_ITS ---
HPI - Back Pain/Injury General: Chief Complaint: Back Pain/Injury Stated Complaint: lower back pain Time Seen by Provider: 01/05/24 11:13 Source: patient Mode of arrival: ambulatory Limitations: no limitations History of Present Illness: 43-year-old female states she woke up th is morning with right lower back pain rating down to her leg. She has had a history of back issues she had a MRI recently and is following with a pain specialist in [place]. States pain is right lower lumbar rates it a 5 out of 10 worse with movement improved with rest denies any bowel or bladder incontinence. Associated symptoms: Deny abdominal pain, chills, fever(s), nausea or vomiting Review of Systems Const: Denies: fever(s), chills, body aches or change in appetite ENMT: Denies: throat pain or dental pain Card: Denies: chest pain Resp: Denies: dyspnea GI: Denies: abdominal pain, nausea, vomiting or diarrhea Musc: Reports: back pain; Denies: neck pain Skin/Breast: Denies: rash Neuro: Denies: headache(s) PFSH ED PFSH: Medical History Diabetes Nicotine dependence, cigarettes, uncomplicated Psychiatric care History of COPD History of restless legs syndrome History of neuropathy Chronic bronchitis Morbid obesity Common migraine with intractable migraine Borderline personality disorder Sleep apnea, unspecified Post-traumatic stress disorder, chronic Surgical History History of hysterectomy History of shoulder surgery History of tubal ligation History of endometrial ablation History of bladder repair surgery Family History Brother Diabetes Mother , Acute leukemia at age 42 Cancer Father Cancer Stage IV Kidney Cancer Grandmother Diabetes maternal Grandfather Stroke maternal Social History Smoking and tobacco/nicotine status: current every day tobacco/nicotine user (quite 06/2022) cigarettes Packs smoked per day: 1 Years cigarettes smoked: 25 [ Other cigarette details: Smoking 5 per day] Substance/Drug Use: current Substance/Drug use frequency: few times a month Other substance/drug use details: former meth user quit in 2013 Highest education level completed: Associate Degree: Occupational, Technical, Vocational Program 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, 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: No Current occupational status: disabled Do you think of yourself as: Straight/Heterosexual Current gender identity: Female Carolee/Zoroastrian: Wicca Female Reproductive History: Para: 3 Spontaneous abortions: No Physical Exam Const: COMMON NORMALS: no acute distress, patient oriented x3 and healthy appearing HENMT: COMMON NORMALS: normocephalic and atraumatic HEAD & SCALP: normocephalic and atraumatic Neck/C-Spine: COMMON NORMALS: full ROM and supple Chest: COMMONS NORMALS: normal inspection of the chest Resp: COMMON NORMALS: normal respiratory effort GI: COMMON NORMALS: Normal to inspection, nondistended, normoactive bowel sounds present, Soft to palpation, non-tender and no masses PALPATION: Yes Soft to palpation Back/Pelvis: OTHER: Tenderness to right lower lumbar region no midline tenderness no saddle anesthesia Extremity: COMMON NORMALS: normal to inspection and full ROM Neuro: COMMON NORMALS: patient oriented x3, moves all extremities and no focal motor deficits Psych: COMMON NORMALS: mental status grossly normal, Normal thought process present and cooperative THOUGHT PROCESS: Normal thought process present Skin: COMMON NORMALS: no rashes or lesions noted and no wounds GENERAL SKIN EXAM: no rashes or lesions noted Course Vital Signs: Vital signs: Vital Signs Temperature 98.1 F 01/05/24 11:13 Pulse Rate 97 01/05/24 11:13 Respiratory Rate 18 01/05/24 11:13 Pulse Oximetry 97 01/05/24 11:13 Oxygen Delivery Me thod Room Air 01/05/24 11:13 MDM - Back Pain/Injury Medical Decision Making Patient presents for low back pain likely muscular in nature. She has no signs of epidural abscess or cauda equina will give her pain meds we will place her on muscle laxer she is to follow-up with pain specialist return if worsening she understands agrees to plan. Medical Records I reviewed the patient's medical records. No radiology studies performed this visit Discharge Plan Discharge Patient Disposition: Home Clinical Impression: Lumbar strain Qualifiers: Encounter type: initial encounter Qualified Code(s): S39.012A - Strain of muscle, fascia and tendon of lower back, initial encounter Condition: Stable Prescriptions: New methocarbamol 750 mg tablet 750 mg PO Q6H PRN (Reason: spasms) Qty: 20 0RF Naprosyn 500 mg tablet 500 mg PO BID PRN (Reason: pain) Qty: 20 0RF No Action pantoprazole 40 mg tablet,delayed release (DR/EC) 40 mg PO QAM albuterol sulfate [ProAir HFA] 90 mcg/actuation HFA aerosol inhaler 1 - 2 puff INHALATION Q4H PRN (Reason: shortness of breath) albuterol sulfate 2.5 mg /3 mL (0.083 %) solution for nebulization 2.5 mg inhalation Q4H PRN (Reason: Shortness Of Breath) Breztri Aerosphere 160-9-4.8 mcg/actuation HFA aerosol inhaler 2 inh inhalation BID aripiprazole [Abilify] 15 mg tablet 15 mg PO DAILY Qty: 30 1RF buspirone 7.5 mg tablet 7.5 mg PO BID Qty: 60 1RF Ozempic 0.25 mg or 0.5 mg(2 mg/1.5 mL) pen injector 2 mg SUBCUT Q7D Rx Instructions: on mondays Botox 100 unit recon soln 155 unit SUBCUT .q 3 months losartan 25 mg tablet 25 mg PO QAM sumatriptan succinate [Imitrex] 100 mg tablet 100 mg PO Q2H PRN (Reason: migraine headache) Qty: 9 6RF venlafaxine [Effexor XR] 75 mg capsule,extended release 24hr 225 mg PO QAM 30 Days Qty: 90 2RF metoprolol succinate 100 mg tablet extended release 24 hr 100 mg PO BID Qty: 180 3RF acetaminophen 500 mg Tablet 1,000 mg PO Q6H PRN (Reason: Pain) ibuprofen 200 mg Tablet 800 mg PO Q6H PRN (Reason: Pain) ondansetron HCl 4 mg tablet 4 mg PO Q6H PRN (Reason: nausea and vomiting) Qty: 20 0RF pramipexole 0.5 mg tablet 0.5 mg PO BID Singulair 10 mg tablet 10 mg PO BEDTIME bupropion HCl 300 mg Tablet Extended Release 24 Hr 300 mg PO DAILY 30 Days Qty: 30 1RF Discharge Orders: Discharge ED (Routine); Ordered 01/05/24 Ordered By: Rose Suazo Referrals: Marcus Wills MD [Primary Care Provider] - 4-7 days Discharge Diet: Advance as tolerated Discharge Activity: Resume usual activity Patient Instructions: Back Pain (ED) Coding Level of Care Code ED Carrier Blower for Sheila Meraz
[2024-01-05] MEDS: HYDROcodone-acetaminophen 5-325 mg Tablet 1 TAB PO (11:46)
[2024-01-05] MEDS: ketorolac 30 mg/mL INJ IM (11:47)
[2024-01-05] MEDS: dexamethasone 10 mg/mL INJ IM (11:49)
[2024-01-05 11:54] VITALS: BP 129/91; PULSE 88; O2SAT 95
== END 2024-01-05 11:55 | disposition home or self-care (01) ==
PROVIDERS: Emergency Provider Emergency Medicine; PCP Family Medicine
DX: S39.012A Strain of muscle, fascia and tendon of lower back, initial encounter (principal); Z79.85 Long-term (current) use of injectable non-insulin antidiabetic drugs; F17.210 Nicotine dependence, cigarettes, uncomplicated; J44.9 Chronic obstructive pulmonary disease, unspecified; E11.40 Type 2 diabetes mellitus with diabetic neuropathy, unspecified; X58.XXXA Exposure to other specified factors, initial encounter
CPT/HCPCS: 96372; 99284; J1100; J1885

== ENCOUNTER → 2024-01-26 13:00 | Outpatient (BNVA) | payer MEDICARE, MEDICAID, SELFPAY ==
[2023-10-18 15:52] VITALS: BP 133/87; BMI 59.4
== END ==
PROVIDERS: PCP Family Medicine; Visit Provider Specialist
DX: G43.711 Chronic migraine without aura, intractable, with status migrainosus (principal); G25.81 Restless legs syndrome; G60.3 Idiopathic progressive neuropathy
CPT/HCPCS: 64615; 99213; J0585

== ENCOUNTER → 2024-01-31 13:43 | Outpatient (BNVA) | payer OTHER, SELFPAY ==
[2023-10-18 15:52] VITALS: BP 133/87; BMI 59.4
== END ==
PROVIDERS: PCP Family Medicine; Visit Provider Nurse Practitioner
DX: F43.12 Post-traumatic stress disorder, chronic (principal)
CPT/HCPCS: 80061; 83036

== ENCOUNTER → 2024-02-28 09:02 | Outpatient (BNVA) | payer MEDICAID, SELFPAY ==
[2024-02-16 15:19] VITALS: BP 139/91; BMI 57.7
== END ==
PROVIDERS: PCP Family Medicine; Visit Provider Nurse Practitioner Family
DX: I10 Essential (primary) hypertension (principal); F17.210 Nicotine dependence, cigarettes, uncomplicated
CPT/HCPCS: 99213

== ENCOUNTER → 2024-03-29 10:40 | Outpatient (BNVA) | payer MEDICARE, MEDICAID, SELFPAY ==
[2024-02-16 15:19] VITALS: BP 139/91; BMI 57.7
== END ==
PROVIDERS: PCP Family Medicine; Visit Provider Internal Medicine Pulmonary Disease
DX: G47.33 Obstructive sleep apnea (adult) (pediatric) (principal); J82.83 Eosinophilic asthma; J98.4 Other disorders of lung; F17.210 Nicotine dependence, cigarettes, uncomplicated; F17.290 Nicotine dependence, other tobacco product, uncomplicated; E66.01 Morbid (severe) obesity due to excess calories; Z68.43 Body mass index [BMI] 50.0-59.9, adult; Z87.09 Personal history of other diseases of the respiratory system
CPT/HCPCS: 99214

== ENCOUNTER 2024-04-09 13:00 | Outpatient (CLI) | payer MEDICARE, MEDICAID, SELFPAY ==
[2024-02-16 15:19] VITALS: BP 139/91; BMI 57.7
== END 2024-04-09 13:01 | disposition home or self-care (01) ==
LOC: SLEEP 04-11 13:24
PROVIDERS: PCP Physician Assistant; Visit Provider Internal Medicine Pulmonary Disease
DX: G47.33 Obstructive sleep apnea (adult) (pediatric) (principal)
CPT/HCPCS: 94762

== ENCOUNTER 2024-04-20 11:46 | Outpatient (CLI) | payer MEDICARE, MEDICAID, SELFPAY ==
[2024-02-16 15:19] VITALS: BP 139/91; BMI 57.7
--- NOTE | 2024-04-20 11:51 | MM_ITS ---
WS: [id number] VIEWS: MLO and CC views both breasts. 3D digital tomosynthesis is also included in this exam. Comparison made with prior exam of 10/19/2019, 01/26/2021 and 01/14/2023.. Findings: There was no sign of mass, architectural distortion or suspicious calcification in either breast. Sta ble appearing nodular densities in both breasts. There are scattered areas of fibroglandular density MM/[place] [id number] Impression: BI-RADS: 2-Benign finding. FOLLOW-UP: 1 Year Follow-up This mammogram was also analyzed by the Computer Aided Detection System R2 Imag e Wave Soldering Machine Operator.
== END 2024-04-20 11:47 | disposition home or self-care (01) ==
LOC: RAD 11:46
PROVIDERS: PCP Physician Assistant; Visit Provider Family Medicine
DX: Z12.31 Encounter for screening mammogram for malignant neoplasm of breast (principal)
CPT/HCPCS: 77063; 77067

== ENCOUNTER → 2024-05-03 13:02 | Outpatient (BNVA) | payer MEDICARE, MEDICAID, SELFPAY ==
[2024-02-16 15:19] VITALS: BP 139/91; BMI 57.7
== END ==
PROVIDERS: PCP Family Medicine; Visit Provider Specialist
DX: G43.711 Chronic migraine without aura, intractable, with status migrainosus (principal); G25.81 Restless legs syndrome; G60.3 Idiopathic progressive neuropathy; R03.0 Elevated blood-pressure reading, without diagnosis of hypertension
CPT/HCPCS: 64615; J0585

== ENCOUNTER 2024-05-09 22:55 | Emergency (ER) | payer MEDICARE, MEDICAID, SELFPAY ==
[2024-02-16 15:19] VITALS: BP 139/91; BMI 57.7
[2024-05-09 23:10] VITALS: BP 109/71; PULSE 85; RESP 18; TEMP 36.8; O2SAT 95
--- NOTE | 2024-05-09 23:15 | XRR_ITS ---
PROCEDURE INFORMATION: Exam: XR Abdomen Exam date and time: 05/09/2024 11:23 PM Age: 43 years old Clinical indication: Bloating and constipation; Additional info: Abdpain, constipation TECHNIQUE: Imaging protocol: Radiologic exam of the abdomen. Views: Frontal supine view of the abdomen. 1 View. COMPARISON: CT abdomen pelvis wo con [id number] 07/04/2018 7:08 PM FINDINGS: Gastrointestinal tract: Moderate retained feces. Bones/joints: Unremarkable. XR/XR abdomen 1V* [id number] IMPRESSION: Moderate retained feces.
[2024-05-10 00:27] LABS: Basophils # 0.1 10^3/uL (0.0-0.1); Basophils % 0.4 %; Eosinophils # 0.3 10^3/uL (0.0-0.8); Eosinophils % 1.9 %; Hematocrit 41.5 % (36-47); Lymphocytes % 13.7 %; Mean Corpuscular HGB Conc 30.6 g/dL (30-55); Mean Corpuscular Hemoglobin 28.5 pg (27-33); Mean Corpuscular Volume 93.3 fl (85-98); Mean Platelet Volume 9.8 fL (7.4-10.4); Monocytes # 0.7 10^3/uL (0.2-0.9); Monocytes % 4.7 %; Neutrophils # 11.68 10^3/uL (1.8-7.7); Neutrophils % 78.8 %; Nucleated Red Blood Cells % 0 %; Platelet Count 234 10^3/cmm (157-399); Red Blood Count 4.45 10^6/uL (3.85-5.65); Red Cell Distribution Width 14.2 % (12.1-15.1); White Blood Count 14.81 10^3/uL (3.29-11.43)
[2024-05-10 00:35] VITALS: PULSE 86; RESP 18; TEMP 36.4; O2SAT 100
[2024-05-10 00:36] VITALS: BP 106/78
[2024-05-10 00:42] LABS: Alanine Aminotransferase 18 U/L (0-33); Albumin Level 3.6 g/dL (3.5-5.2); Alkaline Phosphatase 99 U/L (35-105); Anion Gap 15.1 (5-19); Aspartate Amino Transferase 15 U/L (0-32); Blood Urea Nitrogen 17 mg/dL (6-20); Calcium 8.7 mg/dL (8.5-10.5); Carbon Dioxide 27 mmol/L (22-29); Chloride 99 mmol/L (98-107); Creatinine Clr Calc Pharmacy 171.8918; Glomerular Filtration Rate 90.5 mL/min (90-130); Glucose 246 mg/dL (65-115); Lipase 22 U/L (13-60); Osmolality Calculated 294 mOsm/kg (285-295); Potassium 4.1 mmol/L (3.5-5.1); Sodium 137 mmol/L (136-145); Total Bilirubin 0.2 mg/dL (0.15-1.2); Total Protein 6.6 g/dL (6.6-8.7)
--- NOTE | 2024-05-10 01:08 | ED_ITS ---
HPI - Abdominal Pain 2 General: Chief Complaint: Abdominal Pain Stated Complaint: severe lower abdominal pain Time Seen by Provider: 05/10/24 00:22 History of Present Illness: Patient presents to the ER with complaints of lower abdominal pain. Patient says sharp stabbing when she breathes bends and she makes her nauseous. She said it woke her up from bed and when she went to urinate she did have 1 small bowel movement and had 2 more bowel movement since then she is worried about being constipated. Review of Systems 2 General: Reports: 10 or more systems reviewed and unremarkable except in HPI and below PFSH ED 2 PFSH: Medical History Diabetes Nicotine dependence, cigarettes, uncomplicated Psychiatric care History of COPD History of restless legs syndrome History of neuropathy Chronic bronchitis Morbid obesity Common migraine with intractable migraine Borderline personality disorder Sleep apnea, unspecified Post-traumatic stress disorder, chronic Surgical History History of hysterectomy History of shoulder surgery History of tubal ligation History of endometrial ablation History of bladder repair surgery Family History Brother Diabetes Mother , Acute leukemia at age 42 Cancer Father Cancer Stage IV Kidney Cancer Grandmother Diabetes maternal Grandfather Stroke maternal Social History Smoking and tobacco/nicotine status: current every day tobacco/nicotine user cigarettes Packs smoked per day: 0.50 Years cigarettes smoked: 25 and e- cigarettes E-Cigarette Details: e-cigarette and with nicotine E-cig/vape details: 1200 puff vape that last about a month Quit status (tobacco/nicotine): considering quitting Second hand smoke exposure: Yes Alcohol intake: current Alcohol intake frequency: holidays/special occasions only Alcohol type: hard liquor Substance/Drug Use: current Substance/Drug use frequency: few times a month Other substance/drug use details: 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, 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 Adopted: No Caregiver/support person: Yes (sets up medication, VS and toenails and caregiver that cleans) Lives independently: Yes Household members: children Housing: Manufactured/Mobile home Marital status: Number of children: 3 Highest education level completed: Associate Degree: Occupational, Technical, Vocational Program 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, 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: No Current occupational status: disabled Pets and animals: Yes Pets & animals: cat(s) and dog(s) Leisure activites: art, games and other Leisure activities details: watch movies Sexually active: No Do you think of yourself as: Straight/Heterosexual Current gender identity: Female Carolee/Methodist: Wicca Special carolee needs: No Agree to transfusion: Yes Female Reproductive History: Para: 3 Spontaneous abortions: No Physical Exam 2 Const: COMMON NORMALS: no acute distress, average body habitus, patient oriented x3, no limitations, healthy appearing, alert and well nourished HENMT: COMMON NORMALS: normocephalic, atraumatic, hearing grossly normal bilaterally, external ears normal, Normal external nose present and moist oral mucous membranes HEAD & SCALP: normocephalic and atraumatic NOSE: Normal external nose present EXTERNAL EAR: Yes external ears normal Neck/C-Spine: COMMON NORMALS: no JVD Chest: COMMONS NORMALS: normal inspection of the chest and normal palpation of entire chest wall Resp: COMMON NORMALS: normal respiratory effort, No retractions, No use of accessory muscles and clear to auscultation bilaterally AUSCULTATION: clear to auscultation bilaterally Cardio: COMMON NORMALS: no JVD, regular rate, regular rhythm, S1 normal heart sound present, S2 normal heart sound present, No gallops present (Cardio), No clicks present (Cardio), No murmurs present (Cardio) and No rub (Cardio) R ATE: regular rate RHYTHM: regular rhythm HEART SOUNDS: S1 normal heart sound present and S2 normal heart sound present GI: COMMON NORMALS: Normal to inspection, nondistended, normoactive bowel sounds present, Soft to palpation, non-tender, No hepatosplenomegaly present and no masses PALPATION: Yes Soft to palpation and Yes No hepatosplenomegaly present Neuro: COMMON NORMALS: patient oriented x3 SENSORIUM/ORIENTATION: Yes alert Course 2 Vital Signs: Vital signs: Vital Signs Temperature 97.6 F 05/10/24 00:35 Pulse Rate 86 05/10/24 00:35 Respiratory Rate 18 05/10/24 00:35 Blood Pressure 106/78 05/10/24 00:36 Pulse Oximetry 100 05/10/24 00:35 Oxygen Delivery Me thod Room Air 05/10/24 00:35 MDM - Abdominal Pain Medical Decision Making Patient came to the ER with low abdominal pain. Patient had lab work done essential unremarkable, moderate retained feces showed on her x-ray. These results was discussed with the patient patient be discharged home with diagnosis of constipation. Differential Diagnosis Likely abdominal pain and constipation Medical Records I reviewed the patient's medical records. Lab Data I reviewed the patient's lab results. 05/10/24 00:11 05/10/24 00:11 Labs/Radiology: Radiology Impressions Abdomen X-Ray 05/09/24 23:15 IMPRESSION: Moderate retained feces. Laboratory Results WBC 14.81 10^3/uL (3.29-11.43) H 05/10/24 00:11 RBC 4.45 10^6/uL (3.85-5.65) 05/10/24 00:11 Hgb 12.70 g/dL (11.27-16.99) 05/10/24 00:11 Hct 41.5 % (36-47) 05/10/24 00:11 MCV 93.3 fl (85-98) 05/10/24 00:11 MCH 28.5 pg (27-33) 05/10/24 00:11 MCHC 30.6 g/dL (30-55) 05/10/24 00:11 RDW 14.2 % (12.1-15.1) 05/10/24 00:11 Plt Count 234 10^3/cmm (157-399) 05/10/24 00:11 MPV 9.8 fL (7.4-10.4) 05/10/24 00:11 Neut % (Auto) 78.8 % 05/10/24 00:11 Lymph % (Auto) 13.7 % 05/10/24 00:11 Richardson % (Auto) 4.7 % 05/10/24 00:11 Eos % (Auto) 1.9 % 05/10/24 00:11 Baso % (Auto) 0.4 % 05/10/24 00:11 Neut # (Auto) 11.68 10^3/uL (1.8-7.7) H 05/10/24 00:11 Lymph # (Auto) 2.0 10^3/uL (0.8-4.8) 05/10/24 00:11 Richardson # (Auto) 0.7 10^3/uL (0.2-0.9) 05/10/24 00:11 Eos # (Auto) 0.3 10^3/uL (0.0-0.8) 05/10/24 00:11 Baso # (Auto) 0.1 10^3/uL (0.0-0.1) 05/10/24 00:11 Nucleated RBC % (auto) 0 % 05/10/24 00:11 Nucleated RBCs # 0.0 /100WBC 05/10/24 00:11 Sodium 137 mmol/L (136-145) 05/10/24 00:11 Potassium 4.1 mmol/L (3.5-5.1) 05/10/24 00:11 Chloride 99 mmol/L (98-107) 05/10/24 00:11 Carbon Dioxide 27 mmol/L (22-29) 05/10/24 00:11 Anion Gap 15.1 (5-19) 05/10/24 00:11 BUN 17 mg/dL (6-20) 05/10/24 00:11 Creatinine 0.7 mg/dL (0.5-0.9) 05/10/24 00:11 GFR Calculation 90.5 mL/min (90-130) 05/10/24 00:11 Glucose 246 mg/dL (65-115) H 05/10/24 00:11 Calculated Osmolality 294 mOsm/kg (285-295) 05/10/24 00:11 Calcium 8.7 mg/dL (8.5-10.5) 05/10/24 00:11 Total Bilirubin 0.2 mg/dL (0.15-1.2) 05/10/24 00:11 AST 15 U/L (0-32) 05/10/24 00:11 ALT 18 U/L (0-33) 05/10/24 00:11 Alkaline Phosphatase 99 U/L (35-105) 05/10/24 00:11 Total Protein 6.6 g/dL (6.6-8.7) 05/10/24 00:11 Albumin 3.6 g/dL (3.5-5.2) 05/10/24 00:11 Globulin 3.0 g/dL (1.3-4.6) 05/10/24 00:11 Lipase 22 U/L (13-60) 05/10/24 00:11 Urine Color Yellow (Yellow) 05/10/24 00:32 Urine Appearance Turbid (CLEAR) A 05/10/24 00:32 Urine pH 5 (5-7) 05/10/24 00:32 Ur Specific [place] 1.025 (1.005-1.030) 05/10/24 00:32 Urine Protein Trace (Negative) 05/10/24 00:32 Urine Glucose (UA) Norm (Normal) 05/10/24 00:32 Urine Ketones Negative (Negative) 05/10/24 00:32 Urine Blood Neg (Negative) 05/10/24 00:32 Urine Nitrate Negative (Negative) 05/10/24 00:32 Urine Bilirubin Neg (Negative) 05/10/24 00:32 Urine Urobilinogen Neg mg/dL (Negative) 05/10/24 00:32 Ur Leukocyte Esterase Trace (Negative) H 05/10/24 00:32 Urine RBC 5-10 /hpf (0-2) H 05/10/24 00:32 Urine WBC 5-10 /hpf (0-5) H 05/10/24 00:32 Ur Squamous Epith Cells 15-25 /hpf (0-5) H 05/10/24 00:32 Amorphous Sediment 1+ /hpf 05/10/24 00:32 Urine Bacteria 1+ /hpf (NONE) H 05/10/24 00:32 Urine Mucus 2+ /hpf 05/10/24 00:32 All radiology interpretation(s) finalized by discharge Discharge Plan Discharge Patient Disposition: Home Clinical Impression: Abdominal pain, Constipation Condition: Stable Prescriptions: No Action pantoprazole 40 mg tablet,delayed release (DR/EC) 40 mg PO QAM albuterol sulfate [ProAir HFA] 90 mcg/actuation HFA aerosol inhaler 1 - 2 puff INHALATION Q4H PRN (Reason: shortness of breath) albuterol sulfate 2.5 mg /3 mL (0.083 %) solution for nebulization 2.5 mg inhalation Q4H PRN (Reason: Shortness Of Breath) Breztri Aerosphere 160-9-4.8 mcg/actuation HFA aerosol inhaler 2 inh inhalation BID pramipexole 0.75 mg tablet 0.75 mg PO BID Qty: 60 2RF venlafaxine [Effexor XR] 75 mg capsule,extended release 24hr 225 mg PO QAM 30 Days Qty: 90 2RF buspirone 7.5 mg tablet 7.5 mg PO BID Qty: 60 1RF aripiprazole [Abilify] 10 mg tablet 10 mg PO DAILY Qty: 30 1RF Ozempic 0.25 mg or 0.5 mg(2 mg/1.5 mL) pen injector 2 mg SUBCUT Q7D Rx Instructions: on mondays Botox 100 unit recon soln 155 unit SUBCUT .q 3 months losartan 25 mg tablet 25 mg PO QAM azelastine-fluticasone 137-50 mcg/spray spray,non-aerosol 1 spray intranasal BID Rx Instructions: administer into each nostril levocetirizine [Xyzal] 5 mg tablet 5 mg PO DAILY sumatriptan succinate [Imitrex] 100 mg tablet 100 mg PO Q2H PRN (Reason: migraine headache) Qty: 9 6RF bupropion HCl 300 mg tablet extended release 24 hr 300 mg PO DAILY 30 Days Qty: 30 1RF trazodone 100 mg tablet 100 mg PO .HS Qty: 30 1RF metoprolol succinate 100 mg tablet extended release 24 hr 100 mg PO BID Qty: 180 3RF Nurtec ODT 75 mg tablet,disintegrating See Rx Instructions .ROUTE .COMPLEX Qty: 8 0RF Dose Instruction: DISSOLVE ONE TABLET BY MOUTH ONCE DAILY NEEDED FOR migraine Rx Instructions: DISSOLVE ONE TABLET BY MOUTH ONCE DAILY NEEDED FOR migraine acetaminophen 500 mg Tablet 1,000 mg PO Q6H PRN (Reason: Pain) ibuprofen 200 mg Tablet 800 mg PO Q6H PRN (Reason: Pain) ondansetron HCl 4 mg tablet 4 mg PO Q6H PRN (Reason: nausea and vomiting) Qty: 20 0RF Singulair 10 mg tablet 10 mg PO BEDTIME methocarbamol 750 mg tablet 750 mg PO Q6H PRN (Reason: spasms) Qty: 20 0RF Naprosyn 500 mg tablet 500 mg PO BID PRN (Reason: pain) Qty: 20 0RF Discharge Orders: Discharge ED (Routine); Ordered 05/10/24 Ordered By: Gustavo Krishnamurthy Referrals: Marcus Wills MD [Primary Care Provider] - 1 week Patient Instructions: Constipation - Adult, Abdominal Pain (ED) Activity Restrictions/Additional Instructions: Your lab work including your urinalysis was unremarkable. Your x-ray did show you are backed up quite a bit with prominent stool. Please take [id number] stool softeners and/or laxatives for the next several days until you have multiple good bowel movements to relieve this issue Otherwise follow-up with your family practice doctor within the next 7 days for further evaluation and treatment.. Coding Level of Care Code ED Mineral Ore Processing Labourer for Sheila Meraz
[2024-05-10 01:10] LABS: Add Urine Microscopic? YES; Bacteria Urine 1+ /hpf; Bilirubin Urine Neg (Negative); Blood Urine Neg (Negative); Glucose Urine UA Norm (Normal); Ketones Urine Negative (Negative); Leukocyte Esterase Urine Trace (Negative); Nitrate Urine Negative (Negative); Protein Urine Trace (Negative); Specific Gravity, Urine 1.025 (1.005-1.030); Squamous Epithelial Cell Urine 15-25 /hpf (0-5); Urine Appearance Turbid (CLEAR); Urine Color Yellow (Yellow); Urobilinogen Urine Neg (Negative); pH Urine 5 (5-7)
[2024-05-10 01:11] LABS: Add Urine Culture? No; Amorphous Sediment Urine 1+ /hpf; Mucus Urine 2+ /hpf
[2024-05-10 01:28] VITALS: BP 143/82; PULSE 82; RESP 18; O2SAT 94
[2024-05-10 01:29] VITALS: PULSE 82; RESP 18; TEMP 36.4; O2SAT 94
== END 2024-05-10 01:30 | disposition home or self-care (01) ==
PROVIDERS: Emergency Provider Emergency Medicine; PCP Family Medicine
DX: R10.30 Lower abdominal pain, unspecified (principal); K59.00 Constipation, unspecified; Z79.85 Long-term (current) use of injectable non-insulin antidiabetic drugs; F17.210 Nicotine dependence, cigarettes, uncomplicated; F17.290 Nicotine dependence, other tobacco product, uncomplicated; J44.9 Chronic obstructive pulmonary disease, unspecified; E11.40 Type 2 diabetes mellitus with diabetic neuropathy, unspecified
CPT/HCPCS: 74018; 80053; 81001; 83690; 85025; 99284

== ENCOUNTER 2024-05-22 01:30 | Emergency (ER) | payer MEDICARE, MEDICAID, SELFPAY ==
[2024-02-16 15:19] VITALS: BP 139/91; BMI 57.7
[2024-05-22 01:32] VITALS: BP 144/97; PULSE 96; RESP 16; TEMP 36.6; O2SAT 95; BMI 57.7
[2024-05-22 01:38] VITALS: BP 144/97; PULSE 92; O2SAT 96
--- NOTE | 2024-05-22 01:54 | ED_ITS ---
HPI - Back Pain/Injury General: Chief Complaint: Back Pain/Injury Stated Complaint: severe back spasms and pain righ flank Time Seen by Provider: 05/22/24 01:49 History of Present Illness: Patient presents to the ER with right-sided low back pain. Patient thinks she twisted wrong when she rolled over in bed tonight she had a sharp shooting pain across her right mid back. Pain is worse with movement. Patient does have a bad back that she knows of but does not know any acute trauma that caused it. She has had an MRI approximately 6 months ago per patient. Review of Systems General: Reports: 10 or more systems reviewed and unremarkable except in HPI and below PFSH ED PFSH: Medical History Diabetes Nicotine dependence, cigarettes, uncomplicated Psychiatric care History of COPD History of restless legs syndrome History of neuropathy Chronic bronchitis Morbid obesity Common migraine with intractable migraine Borderline personality disorder Sleep apnea, unspecified Post-traumatic stress disorder, chronic Surgical History History of hysterectomy History of shoulder surgery History of tubal ligation History of endometrial ablation History of bladder repair surgery Family History Brother Diabetes Mother , Acute leukemia at age 42 Cancer Father Cancer Stage IV Kidney Cancer Grandmother Diabetes maternal Grandfather Stroke maternal Social History Smoking and tobacco/nicotine status: current every day tobacco/nicotine user cigarettes Packs smoked per day: 0.50 Years cigarettes smoked: 25 and e- cigarettes E-Cigarette Details: e-cigarette and with nicotine E-cig/vape details: 1200 puff vape that last about a month Quit status (tobacco/nicotine): considering quitting Second hand smoke exposure: Yes Alcohol intake: current Alcohol intake frequency: holidays/special occasions only Alcohol type: hard liquor Substance/Drug Use: current Substance/Drug use frequency: few times a month Other substance/drug use details: 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, 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 Adopted: No Caregiver/support person: Yes (sets up medication, VS and toenails and caregiver that cleans) Lives independently: Yes Household members: children Housing: Manufactured/Mobile home Marital status: Number of children: 3 Highest education level completed: Associate Degree: Occupational, Technical, Vocational Program 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, 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: No Current occupational status: disabled Pets and animals: Yes Pets & animals: cat(s) and dog(s) Leisure activites: art, games and other Leisure activities details: watch movies Sexually active: No Do you think of yourself as: Straight/Heterosexual Current gender identity: Female Carolee/Baptism: Wicca Special carolee needs: No Agree to transfusion: Yes Female Reproductive History: Para: 3 Spontaneous abortions: No Physical Exam Const: COMMON NORMALS: no acute distress, average body habitus, patient oriented x3, no limitations, healthy appearing, alert and well nourished HENMT: COMMON NORMALS: normocephalic, atraumatic, hearing grossly normal bilaterally, external ears normal, Normal external nose present and moist oral mucous membranes HEAD & SCALP: normocephalic and atraumatic NOSE: Normal external nose present EXTERNAL EAR: Yes external ears normal Neck/C-Spine: COMMON NORMALS: full ROM, no lymphadenopathy, supple, no meningeal signs, no JVD and Thyroid normal THYROID: Thyroid normal Chest: COMMONS NORMALS: normal inspection of the chest and normal palpation of entire chest wall Resp: COMMON NORMALS: normal respiratory effort, No retractions, No use of accessory muscles and clear to auscultation bilaterally AUSCULTATION: clear to auscultation bilaterally Cardio: COMMON NORMALS: no JVD, regular rate, regular rhythm, S1 normal heart sound present, S2 normal heart sound present, No gallops present (Cardio), No clicks present (Cardio), No murmurs present (Cardio) and No rub (Cardio) RATE: regular rate RHYTHM: regular rhythm HEART SOUNDS: S1 normal heart sound present and S2 normal heart sound present GI: COMMON NORMALS: Normal to inspection, nondistended, normoactive bowel sounds present, Soft to palpation, non-tender, No hepatosplenomegaly present and no masses PALPATION: Yes Soft to palpation and Yes No hepatosplenomegaly present Neuro: COMMON NORMALS: patient oriented x3 SENSORIUM/ORIENTATION: Yes alert MENINGEAL SIGNS: Yes no meningeal signs Course Vital Signs: Vital signs: Vital Signs Temperature 97.9 F 07/30/24 01:32 Pulse Rate 78 07/30/24 04:20 Respiratory Rate 16 05/22/24 01:32 Blood Pressure 114/88 05/22/24 04:20 Pulse Oximetry 94 05/22/24 04:20 Oxygen Delivery Me thod Room Air 05/22/24 01:32 MDM - Back Pain/Injury Medical Decision Making Patient was given 60 Norflex IM and 100 mg tramadol p.o. Patient was checked out approximately 30 minutes later said pain is still there but now she is nauseous. Patient is given 25 mg of Phenergan and 1 hydrocodone 5/325. Checked on 30 minutes later she said the pain t was better. Patient be discharged home. Differential Diagnosis Likely strain of lumbar region and renal colic Labs I reviewed the patient's lab results. No radiology studies performed this visit Discharge Plan Discharge Patient Disposition: Home Clinical Impression: Strain of lumbar region Qualifiers: Encounter type: initial encounter Qualified Code(s): S39.012A - Strain of muscle, fascia and tendon of lower back, initial encounter Condition: Stable Prescriptions: New orphenadrine citrate 100 mg tablet extended release 100 mg PO Q12H PRN (Reason: Low back pain) Qty: 14 0RF Discontinued methocarbamol 750 mg tablet 750 mg PO Q6H PRN (Reason: spasms) Qty: 20 0RF No Action pantoprazole 40 mg tablet,delayed release (DR/EC) 40 mg PO QAM albuterol sulfate [ProAir HFA] 90 mcg/actuation HFA aerosol inhaler 1 - 2 puff INHALATION Q4H PRN (Reason: shortness of breath) albuterol sulfate 2.5 mg /3 mL (0.083 %) solution for nebulization 2.5 mg inhalation Q4H PRN (Reason: Shortness Of Breath) Breztri Aerosphere 160-9-4.8 mcg/actuation HFA aerosol inhaler 2 inh inhalation BID pramipexole 0.75 mg tablet 0.75 mg PO BID Qty: 60 2RF venlafaxine [Effexor XR] 75 mg capsule,extended release 24hr 225 mg PO QAM 30 Days Qty: 90 2RF buspirone 7.5 mg tablet 7.5 mg PO BID Qty: 60 1RF Ozempic 0.25 mg or 0.5 mg(2 mg/1.5 mL) pen injector 2 mg SUBCUT Q7D Rx Instructions: on mondays Botox 100 unit recon soln 155 unit SUBCUT .q 3 months losartan 25 mg tablet 25 mg PO QAM azelastine-fluticasone 137-50 mcg/spray spray,non-aerosol 1 spray intranasal BID Rx Instructions: administer into each nostril levocetirizine [Xyzal] 5 mg tablet 5 mg PO DAILY sumatriptan succinate [Imitrex] 100 mg tablet 100 mg PO Q2H PRN (Reason: migraine headache) Qty: 9 6RF trazodone 100 mg tablet 100 mg PO .HS Qty: 30 1RF metoprolol succinate 100 mg tablet extended release 24 hr 100 mg PO BID Qty: 180 3RF Nurtec ODT 75 mg tablet,disintegrating See Rx Instructions .ROUTE .COMPLEX Qty: 8 0RF Dose Instruction: DISSOLVE ONE TABLET BY MOUTH ONCE DAILY NEEDED FOR migraine Rx Instructions: DISSOLVE ONE TABLET BY MOUTH ONCE DAILY NEEDED FOR migraine bupropion HCl 300 mg tablet extended release 24 hr 300 mg PO DAILY 30 Days Qty: 30 1RF aripiprazole [Abilify] 10 mg tablet 10 mg PO DAILY Qty: 30 1RF acetaminophen 500 mg Tablet 1,000 mg PO Q6H PRN (Reason: Pain) ibuprofen 200 mg Tablet 800 mg PO Q6H PRN (Reason: Pain) ondansetron HCl 4 mg tablet 4 mg PO Q6H PRN (Reason: nausea and vomiting) Qty: 20 0RF Singulair 10 mg tablet 10 mg PO BEDTIME Naprosyn 500 mg tablet 500 mg PO BID PRN (Reason: pain) Qty: 20 0RF Discharge Orders: Discharge ED (Routine); Ordered 05/22/24 Ordered By: Gustavo Krishnamurthy Referrals: Marcus Wills MD [Primary Care Provider] - 1 week Patient Instructions: Back Pain (ED) Activity Restrictions/Additional Instructions: Please take all your medicine as directed. Please follow-up with your primary care physician within the next 7 to 10 days for further evaluation and treatment. Thank you for choosing [facility] for your healthcare needs today. Please realize that you were seen in the emergency department and that we are providing you with an emergency medical screening exam and this may not be a complete and all exclusive of all testing and/or medical workup we may need to determine your element or severity of your illness. It is very important that you follow-up as instructed with your primary care provider or specialist for the additional evaluation and to discuss your medical treatment plan. You may return to the emergency department should you have concerns or if your condition changes or worsens in any way. Coding Level of Care Code ED Supervisor Drilling And Shooting for Sheila Meraz
[2024-05-22] MEDS: orphenadrine 30 mg/mL Inj 2 mL 60 MG IM (02:18)
[2024-05-22] MEDS: TRAMadol 50 mg Tablet 100 MG PO (02:21)
[2024-05-22 02:26] VITALS: BP 127/88; PULSE 91; O2SAT 94
--- NOTE | 2024-05-22 02:29 | PC.NURSE ---
Pt was ordered 100 mg Tramadol PO. This nurse dropped one tablet on the floor. This nurse wasted one 50mg tablet of Tramadol with Erica RN. Unable to pull remainder of dose, so wasted second dose of 50 mg tramadol with Erica RN to retrieve correct dose.
[2024-05-22] MEDS: HYDROcodone-acetaminophen 5-325 mg Tablet 1 TAB PO (03:45)
[2024-05-22] MEDS: promethazine 25 mg Tablet PO (03:45)
[2024-05-22 03:47] VITALS: BP 126/103; PULSE 87; O2SAT 93
[2024-05-22 04:20] VITALS: BP 114/88; PULSE 78; O2SAT 94
[2024-05-22 04:45] VITALS: BP 113/94; PULSE 79; O2SAT 93
== END 2024-05-22 04:52 | disposition home or self-care (01) ==
PROVIDERS: Emergency Provider Emergency Medicine; PCP Family Medicine
DX: S39.012A Strain of muscle, fascia and tendon of lower back, initial encounter (principal); Z79.85 Long-term (current) use of injectable non-insulin antidiabetic drugs; F17.210 Nicotine dependence, cigarettes, uncomplicated; F17.290 Nicotine dependence, other tobacco product, uncomplicated; J44.9 Chronic obstructive pulmonary disease, unspecified; E11.40 Type 2 diabetes mellitus with diabetic neuropathy, unspecified; X50.1XXA Overexertion from prolonged static or awkward postures, initial encounter
CPT/HCPCS: 96372; 99284; J2360; Q0169

== ENCOUNTER 2024-07-21 22:33 | Emergency (ER) | payer MEDICARE, MEDICAID, SELFPAY ==
[2024-02-16 15:19] VITALS: BP 139/91; BMI 57.7
[2024-07-21 22:38] VITALS: BP 136/81; PULSE 90; RESP 18; TEMP 37.1; O2SAT 94; BMI 56.7
[2024-07-21 22:43] VITALS: BP 151/99; PULSE 87; O2SAT 97
[2024-07-21] MEDS: ketorolac 30 mg/mL INJ IVP (23:54)
[2024-07-21] MEDS: dexamethasone 10 mg/mL INJ 6 MG IVP (23:55)
[2024-07-21] MEDS: metoclopramide 5 mg/mL SDV 2 mL 10 MG IVP (23:55)
[2024-07-21 23:56] VITALS: RESP 18
[2024-07-21] MEDS: fentaNYL 50 mcg/mL INJ 2mL 100 MCG IVP (23:56)
[2024-07-22 01:27] VITALS: BP 109/55; PULSE 87; O2SAT 95
[2024-07-22 01:36] VITALS: BP 131/85; PULSE 80; O2SAT 94
--- NOTE | 2024-07-22 07:23 | ED_ITS ---
HPI - Headache General: Chief Complaint: Headache Stated Complaint: Headache Time Seen by Provider: 07/21/24 23:03 History of Present Illness: 43-year-old female with history of migra ine headache. She presents with essentially 24 hours of significant headache. She has taken Excedrin Migraine, caffeine, Tylenol, and Imitrex without significant relief. She is nauseated. She has vomited. She denies any fever. Related Data Home Medications Medication Instructions Recorded Confirmed albuterol sulfate 90 mcg/actuation 1 - 2 puff inhalation Q4H PRN 12/10/19 05/03/24 aerosol inhaler (ProAir HFA) shortness of breath albuterol sulfate 2.5 mg/3 mL 2.5 mg inhalation Q4H PRN 01/21/21 05/03/24 (0.083 %) solution for nebulization Shortness Of Breath pantoprazole 40 mg tablet,delayed 40 mg PO QAM 06/08/21 05/03/24 release acetaminophen 500 mg tablet 1,000 mg PO Q6H PRN Pain 02/23/22 05/03/24 ibuprofen 200 mg tablet 800 mg PO Q6H PRN Pain 02/23/22 05/03/24 semaglutide 0.25 mg or 0.5 mg (2 2 mg SUBCUT Q7D 02/09/23 05/03/24 mg/1.5 mL) subcutaneous pen injector (Ozempic) losartan 25 mg tablet 25 mg PO QAM 07/12/23 05/03/24 onabotulinumtoxinA 100 unit 155 unit SUBCUT .q 3 months 09/22/23 05/03/24 solution for injection (Botox) montelukast 10 mg tablet 10 mg PO BEDTIME 11/13/23 05/03/24 (Singulair) budesonide 160 mcg-glycopyr 9 2 inh inhalation BID 12/01/23 05/03/24 mcg-formot 4.8 mcg/actuation HFA inhaler (Breztri Aerosphere) levocetirizine 5 mg tablet (Xyzal) 5 mg PO DAILY 02/01/24 05/03/24 azelastine 137 mcg-fluticasone 50 1 spray intranasal BID 03/29/24 05/03/24 mcg/spray nasal spray Previous Rx's Medication Instructions Recorded ondansetron HCl 4 mg tablet 4 mg PO Q6H PRN nausea and 02/23/22 vomiting #20 tabs sumatriptan succinate 100 mg 100 mg PO Q2H PRN migraine 08/03/23 tablet (Imitrex) headache #9 tabs naproxen 500 mg tablet (Naprosyn) 500 mg PO BID PRN pain #20 tabs 01/05/24 pramipexole 0.75 mg tablet 0.75 mg PO BID #60 tabs 01/25/24 venlafaxine 75 mg capsule,extended 225 mg (3 x 75 mg) PO QAM 30 days 03/26/24 release 24 hr (Effexor XR) #90 caps metoprolol succinate 100 mg 100 mg PO BID #180 tabs 04/27/24 tablet,extended release 24 hr aripiprazole 10 mg tablet (Abilify) 10 mg PO DAILY #30 tabs 05/16/24 bupropion HCl 300 mg 24 hr tablet, 300 mg PO DAILY 30 days #30 tabs 05/16/24 extended release orphenadrine citrate 100 mg 100 mg PO Q12H PRN Low back pain 05/22/24 tablet,extended release #14 tabs buspirone 7.5 mg tablet 7.5 mg PO BID #60 tabs 06/12/24 trazodone 100 mg tablet 100 mg PO .HS #30 tabs 06/12/24 rimegepant 75 mg disintegrating See Rx Instructions .Route 06/19/24 tablet (Nurtec ODT) .COMPLEX #8 tabs Allergies Allergy/AdvReac Type Severity Reaction Status Date / Time aspirin Allergy Severe ADR-Vomitin Verified 05/09/24 23:15 g lamotrigine [From Lamictal] Allergy Severe ALGY-Hives Verified 05/09/24 23:15 morphine Allergy Severe ALGY-Rash Verified 05/09/24 23:15 walnut Allergy Severe ALGY-Hives Verified 05/09/24 23:15 citalopram AdvReac Severe ADR-Halluci Verified 05/09/24 23:15 nating prednisone AdvReac Severe vomitting Verified 05/09/24 23:15 PFS ED PFSH: Medical History Diabetes Nicotine dependence, cigarettes, uncomplicated Psychiatric care History of COPD History of restless legs syndrome History of neuropathy Chronic bronchitis Morbid obesity Common migraine with intractable migraine Borderline personality disorder Sleep apnea, unspecified Post-traumatic stress disorder, chronic Surgical History History of hysterectomy History of shoulder surgery History of tubal ligation History of endometrial ablation History of bladder repair surgery Family History Brother Diabetes Mother , Acute leukemia at age 42 Cancer Father Cancer Stage IV Kidney Cancer Grandmother Diabetes maternal Grandfather Stroke maternal Social History Smoking and tobacco/nicotine status: current every day tobacco/nicotine user cigarettes Packs smoked per day: 0.50 Years cigarettes smoked: 25 and e- cigarettes E-Cigarette Details: e-cigarette and with nicotine E-cig/vape details: 1200 puff vape that last about a month Quit status (tobacco/nicotine): considering quitting Second hand smoke exposure: Yes Alcohol intake: current Alcohol intake frequency: holidays/special occasions only Alcohol type: hard liquor Substance/Drug Use: current Substance/Drug use frequency: few times a month Other substance/drug use details: 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, 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 Adopted: No Caregiver/support person: Yes (sets up medication, VS and toenails and caregiver that cleans) Lives independently: Yes Household members: children Housing: Manufactured/Mobile home Marital status: Number of children: 3 Highest education level completed: Associate Degree: Occupational, Technical, Vocational Program 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, 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: No Current occupational status: disabled Pets and animals: Yes Pets & animals: cat(s) and dog(s) Leisure activites: art, games and other Leisure activities details: watch movies Sexually active: No Do you think of yourself as: Straight/Heterosexual Current gender identity: Female Carolee/Quaker: Wicca Special carolee needs: No Agree to transfusion: Yes Female Reproductive History: Para: 3 Spontaneous abortions: No Physical Exam Const: COMMON NORMALS: no acute distress and alert GENERAL APPEARANCE: cooperative; not ill appearing and not frail appearing HENMT: COMMON NORMALS: normocephalic, atraumatic and Normal external nose present HEAD & SCALP: normocephalic and atraumatic FACE & SINUS: normal facial exam and face symmetric NOSE: Normal external nose present Eye: COMMON NORMALS: Equal, round and reactive pupils present and EOMs intact bilaterally PUPIL: Yes Equal, round and reactive pupils present Neck/C-Spine: GENERAL: Yes trachea midline Chest: CHEST: Yes Symmetrical chest wall rise Resp: COMMON NORMALS: normal respiratory effort, No retractions and No use of accessory muscles Cardio: COMMON NORMALS: regular rate and regular rhythm RATE: regular rate RHYTHM: regular rhythm GI: COMMON NORMALS: Normal to inspection, nondistended, normoactive bowel sounds present Extremity: COMMON NORMALS: no pedal edema Neuro: LARISA COMA SCALE: document GCS findings [place] coma scale eye opening: Spontaneous Larisa coma scale verbal response: Orientated [place] coma scale motor response: Obey commands Larisa coma scale total score: 15 SENSORIUM/ORIENTATION: Yes alert CRANIAL NERVES: Yes CN normal except as noted COORDINATION/BALANCE: [id number] test normal and [id number] test normal SPEECH: speech normal SENSORY EXAM: Yes extremities (intact) MOTOR EXAM: Pronator motor function not present COORDINATION: [id number] test normal and arsq-[id number] test normal Psych: COMMON NORMALS: speech normal SPEECH: Yes normal speech Skin: COMMON NORMALS: no rashes or lesions noted GENERAL SKIN EXAM: no rashes or lesions noted Course Vital Signs: Vital signs: Vital Signs Temperature 98.8 F 07/21/24 22:38 Pulse Rate 80 07/22/24 01:36 Respiratory Rate 18 07/21/24 23:56 Blood Pressure 131/85 07/22/24 01:36 Pulse Oximetry 94 07/22/24 01:36 Oxygen Delivery Me thod Room Air 07/22/24 01:27 MDM - Headache Medical Decision Making Blood pressure and vital signs are stable. She is much improved after migraine cocktail of IV medication here. She will be allowed discharge. She has outpatient follow-up with neurology for Botox injections later this week. No radiology studies performed this visit Discharge Plan Discharge Patient Disposition: Home Clinical Impression: Migraine Condition: Stable Prescriptions: No Action pantoprazole 40 mg tablet,delayed release (DR/EC) 40 mg PO QAM albuterol sulfate [ProAir HFA] 90 mcg/actuation HFA aerosol inhaler 1 - 2 puff INHALATION Q4H PRN (Reason: shortness of breath) albuterol sulfate 2.5 mg /3 mL (0.083 %) solution for nebulization 2.5 mg inhalation Q4H PRN (Reason: Shortness Of Breath) Kamtri Aerosphere 160-9-4.8 mcg/actuation HFA aerosol inhaler 2 inh inhalation BID pramipexole 0.75 mg tablet 0.75 mg PO BID Qty: 60 2RF venlafaxine [Effexor XR] 75 mg capsule,extended release 24hr 225 mg PO QAM 30 Days Qty: 90 2RF Ozempic 0.25 mg or 0.5 mg(2 mg/1.5 mL) pen injector 2 mg SUBCUT Q7D Rx Instructions: on mondays Botox 100 unit recon soln 155 unit SUBCUT .q 3 months losartan 25 mg tablet 25 mg PO QAM azelastine-fluticasone 137-50 mcg/spray spray,non-aerosol 1 spray intranasal BID Rx Instructions: administer into each nostril levocetirizine [Xyzal] 5 mg tablet 5 mg PO DAILY sumatriptan succinate [Imitrex] 100 mg tablet 100 mg PO Q2H PRN (Reason: migraine headache) Qty: 9 6RF metoprolol succinate 100 mg tablet extended release 24 hr 100 mg PO BID Qty: 180 3RF bupropion HCl 300 mg tablet extended release 24 hr 300 mg PO DAILY 30 Days Qty: 30 1RF aripiprazole [Abilify] 10 mg tablet 10 mg PO DAILY Qty: 30 1RF trazodone 100 mg tablet 100 mg PO .HS Qty: 30 1RF buspirone 7.5 mg tablet 7.5 mg PO BID Qty: 60 1RF Nurtec ODT 75 mg tablet,disintegrating See Rx Instructions .ROUTE .COMPLEX Qty: 8 0RF Dose Instruction: DISSOLVE ONE TABLET BY MOUTH ONCE DAILY NEEDED FOR migraine Rx Instructions: DISSOLVE ONE TABLET BY MOUTH ONCE DAILY NEEDED FOR migraine acetaminophen 500 mg Tablet 1,000 mg PO Q6H PRN (Reason: Pain) ibuprofen 200 mg Tablet 800 mg PO Q6H PRN (Reason: Pain) ondansetron HCl 4 mg tablet 4 mg PO Q6H PRN (Reason: nausea and vomiting) Qty: 20 0RF Singulair 10 mg tablet 10 mg PO BEDTIME Naprosyn 500 mg tablet 500 mg PO BID PRN (Reason: pain) Qty: 20 0RF orphenadrine citrate 100 mg tablet extended release 100 mg PO Q12H PRN (Reason: Low back pain) Qty: 14 0RF Discharge Orders: Discharge ED (Routine); Ordered 07/22/24 Ordered By: Costa Gunn Referrals: Marcus Wills MD [Primary Care Provider] - 1-3 days Patient Instructions: Acute Headache (ED), Opioid Safety, Pain Management Coding Level of Care Code ED Bouffant Curtain Machine Tender for Sheila Meraz
== END 2024-07-22 01:37 | disposition home or self-care (01) ==
PROVIDERS: Emergency Provider Emergency Medicine; PCP Family Medicine
DX: G43.909 Migraine, unspecified, not intractable, without status migrainosus (principal); Z79.85 Long-term (current) use of injectable non-insulin antidiabetic drugs; F17.210 Nicotine dependence, cigarettes, uncomplicated; F17.290 Nicotine dependence, other tobacco product, uncomplicated; J44.9 Chronic obstructive pulmonary disease, unspecified; E11.40 Type 2 diabetes mellitus with diabetic neuropathy, unspecified
CPT/HCPCS: 96374; 96375; 99284; J1100; J1885; J2765; J3010

== ENCOUNTER → 2024-08-08 11:33 | Outpatient (BNVA) | payer OTHER, SELFPAY ==
[2024-02-16 15:19] VITALS: BP 139/91; BMI 57.7
== END ==
PROVIDERS: PCP Family Medicine; Visit Provider Obstetrics & Gynecology
DX: Z01.419 Encounter for gynecological examination (general) (routine) without abnormal findings (principal)
CPT/HCPCS: 81000

== ENCOUNTER → 2024-08-10 09:55 | Outpatient (BNVA) | payer MEDICARE, MEDICAID, SELFPAY ==
[2024-02-16 15:19] VITALS: BP 139/91; BMI 57.7
== END ==
PROVIDERS: PCP Family Medicine; Visit Provider Specialist
DX: G43.711 Chronic migraine without aura, intractable, with status migrainosus (principal); G25.81 Restless legs syndrome; G60.3 Idiopathic progressive neuropathy
CPT/HCPCS: 64615; J0585

== ENCOUNTER 2024-08-20 13:17 | Oncology outpatient (recurring) (ONCR) | payer MEDICARE, MEDICAID, SELFPAY ==
[2024-02-16 15:19] VITALS: BP 139/91; BMI 57.7
[2024-08-20 13:45] VITALS: BP 137/91; PULSE 86; RESP 16; TEMP 36.6; O2SAT 94
[2024-08-20] MEDS: diphenhydrAMINE 50 mg/mL SDV 1mL 25 MG IVP (14:06)
[2024-08-20] MEDS: ondansetron 2 mg/ML SDV 2 mL 4 MG IVP (14:08)
[2024-08-20] MEDS: dihydroergotamine 1 mg/mL Inj 0.5 MG IVP ×2 (14:21→14:52)
--- NOTE | 2024-08-20 15:24 | PC.NURSE ---
Pt's pain level was assessed 15 minutes after second dose of DHE. Patient indicated her pain level was at a 4. She refused a third dose stating she was feeling exhausted, thought she could go home and sleep off the rest of her headache. Pt called daughter to pick her up.
[2024-08-20 15:34] VITALS: BP 139/71; PULSE 84; RESP 16; TEMP 37.1; O2SAT 95
== END 2024-08-23 23:59 | disposition home or self-care (01) ==
LOC: ONCMED 13:17
PROVIDERS: PCP Family Medicine; Visit Provider Specialist
DX: Z79.899 Other long term (current) drug therapy (principal); G43.711 Chronic migraine without aura, intractable, with status migrainosus
CPT/HCPCS: 96374; 96375; 96376; J1110; J1200; J2405

== ENCOUNTER 2024-09-25 01:33 | Emergency (ER) | payer MEDICARE, MEDICAID, SELFPAY ==
[2024-09-18 12:40] VITALS: BP 139/91; BMI 57.7
[2024-09-25 01:43] VITALS: BP 144/94; PULSE 99; RESP 18; TEMP 36.7; O2SAT 96; BMI 56.2
[2024-09-25] MEDS: methylPREDNISolone sod succ 125 mg/2 mL INJ IM (01:59)
[2024-09-25] MEDS: hyDROXYzine 25 mg Capsule 50 MG PO (01:59)
--- NOTE | 2024-09-25 01:59 | ED_ITS ---
HPI - Skin/Abscess/Foreign Bdy General: Chief complaint: Skin/Abscess/Foreign Body Stated complaint: Itching Time Seen by Provider: 09/25/24 01:43 History of Present Illness: 43-year-old female who presents emergenc y room with a rash. Is been there for the next day. She is taken multiple [id number] medications with no improvement. No shortness of breath. No chest pain. Related Data Home Medications Medication Instructions Recorded Confirmed albuterol sulfate 90 mcg/actuation 1 - 2 puff inhalation Q4H PRN 12/10/19 08/20/24 aerosol inhaler (ProAir HFA) shortness of breath albuterol sulfate 2.5 mg/3 mL 2.5 mg inhalation Q4H PRN 01/21/21 08/20/24 (0.083 %) solution for nebulization Shortness Of Breath pantoprazole 40 mg tablet,delayed 40 mg PO QAM 06/08/21 08/20/24 release acetaminophen 500 mg tablet 1,000 mg PO Q6H PRN Pain 02/23/22 08/20/24 ibuprofen 200 mg tablet 800 mg PO Q6H PRN Pain 02/23/22 08/20/24 semaglutide 0.25 mg or 0.5 mg (2 2 mg SUBCUT Q7D 02/09/23 08/20/24 mg/1.5 mL) subcutaneous pen injector (Ozempic) losartan 25 mg tablet 25 mg PO QAM 07/12/23 08/20/24 onabotulinumtoxinA 100 unit 155 unit SUBCUT .q 3 months 09/22/23 08/20/24 solution for injection (Botox) montelukast 10 mg tablet 10 mg PO BEDTIME 11/13/23 08/20/24 (Singulair) budesonide 160 mcg-glycopyr 9 2 inh inhalation BID 12/01/23 08/20/24 mcg-formot 4.8 mcg/actuation HFA inhaler (Breztri Aerosphere) levocetirizine 5 mg tablet (Xyzal) 5 mg PO DAILY 02/01/24 08/20/24 azelastine 137 mcg-fluticasone 50 1 spray intranasal BID 03/29/24 08/20/24 mcg/spray nasal spray Previous Rx's Medication Instructions Recorded ondansetron HCl 4 mg tablet 4 mg PO Q6H PRN nausea and 02/23/22 vomiting #20 tabs metoprolol succinate 100 mg 100 mg PO BID #180 tabs 04/27/24 tablet,extended release 24 hr orphenadrine citrate 100 mg 100 mg PO Q12H PRN Low back pain 05/22/24 tablet,extended release #14 tabs buspirone 7.5 mg tablet 7.5 mg PO BID #60 tabs 08/01/24 venlafaxine 75 mg capsule,extended 225 mg (3 x 75 mg) PO QAM 30 days 08/17/24 release 24 hr (Effexor XR) #90 caps pramipexole 0.5 mg tablet 0.5 mg PO BID #60 tabs 08/22/24 rimegepant 75 mg disintegrating See Rx Instructions .Route 08/29/24 tablet (Nurtec ODT) .COMPLEX #8 tabs aripiprazole 10 mg tablet (Abilify) 10 mg PO DAILY #30 tabs 09/17/24 bupropion HCl 300 mg 24 hr tablet, 300 mg PO DAILY 30 days #30 tabs 09/17/24 extended release dexamethasone 6 mg tablet 6 mg PO DAILY 5 days #5 tabs 09/25/24 hydroxyzine HCl 25 mg tablet 25 mg PO Q8H PRN withdrawal 09/25/24 symptoms #30 tabs Allergies Allergy/AdvReac Type Severity Reaction Status Date / Time aspirin Allergy Severe ADR-Vomitin Verified 09/25/24 01:45 g lamotrigine [From Lamictal] Allergy Severe ALGY-Hives Verified 09/25/24 01:45 morphine Allergy Severe ALGY-Rash Verified 09/25/24 01:45 walnut Allergy Severe ALGY-Hives Verified 09/25/24 01:45 citalopram AdvReac Severe ADR-Halluci Verified 09/25/24 01:45 nating prednisone AdvReac Severe vomitting Verified 09/25/24 01:45 Review of Systems Narrative: Constitutional symptoms: Negative except as documented in HPI. Skin symptoms: Negative except as documented in HPI. Eye symptoms: Negative except as documented in HPI. ENMT symptoms: Negative except as documented in HPI. Respiratory symptoms: Negative except as documented in HPI. Cardiovascular symptoms: Negative except as documented in HPI. Gastrointestinal symptoms: Negative except as documented in HPI. Genitourinary symptoms: Negative except as documented in HPI. Musculoskeletal symptoms: Negative except as documented in HPI. Neurologic symptoms: Negative except as documented in HPI. Psychiatric symptoms: Negative except as documented in HPI. Endocrine symptoms: Negative except as documented in HPI. PFSH ED PFSH: Medical History Diabetes Nicotine dependence, cigarettes, uncomplicated Psychiatric care History of COPD History of restless legs syndrome History of neuropathy Chronic bronchitis Morbid obesity Common migraine with intractable migraine Borderline personality disorder Sleep apnea, unspecified Post-traumatic stress disorder, chronic Surgical History History of hysterectomy History of shoulder surgery History of tubal ligation History of endometrial ablation History of bladder repair surgery Family History Brother Diabetes Mother , Acute leukemia at age 42 Cancer Father Cancer Stage IV Kidney Cancer Grandmother Diabetes maternal Grandfather Stroke maternal Social History Smoking and tobacco/nicotine status: former use of tobacco/nicotine Quit status (tobacco/nicotine): considering quitting Second hand smoke exposure: Yes Alcohol intake: current Alcohol intake frequency: holidays/special occasions only Alcohol type: hard liquor Substance/Drug Use: current Substance/Drug use frequency: few times a month O ther substance/drug use details: 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, 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 Adopted: No Caregiver/support person: Yes (sets up medication, VS and toenails and caregiver that cleans) Lives independently: Yes Household members: children Housing: Manufactured/Mobile home Marital status: Number of children: 3 Highest education level completed: Associate Degree: Occupational, Technical, Vocational Program 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 Skin: warm and dry, patient does appear to have a rash on her legs Head: Normocephalic Neck: Trachea midline Eye: Extraocular movements are intact. Ears, nose, mouth and throat: Oral mucosa moist Respiratory: Respirations are non-labored Musculoskeletal: Normal ROM Neurological: Alert and oriented, No focal neurological deficit observed. Psychiatric: Cooperative, appropriate mood & affect. Course Vital Signs: Vital signs: Vital Signs Temperature 98.0 F 09/25/24 01:43 Pulse Rate 99 09/25/24 01:43 Respiratory Rate 18 09/25/24 01:43 Blood Pressure 144/94 09/25/24 01:43 Pulse Oximetry 96 09/25/24 01:43 Oxygen Delivery Me thod Room Air 09/25/24 01:43 MDM - Skin/Abscess/Foreign Bdy Medicial Decision Making Assessment and plan: Rash Urticaria ? IM Solu-Medrol and p.o. hydroxyzine in the emergency room - Discharged home - Discussed plan with patient. Answered any questions. - Evaluation and treatment of this problem were appropriate in the emergency setting. No radiology studies performed this visit Discharge Plan Discharge Patient Disposition: Home Clinical Impression: Pruritus, Allergic reaction Condition: Stable Prescriptions: New dexamethasone 6 mg tablet 6 mg PO DAILY 5 Days Qty: 5 0RF hydroxyzine HCl 25 mg tablet 25 mg PO Q8H PRN (Reason: withdrawal symptoms) Qty: 30 0RF No Action pantoprazole 40 mg tablet,delayed release (DR/EC) 40 mg PO QAM albuterol sulfate [ProAir HFA] 90 mcg/actuation HFA aerosol inhaler 1 - 2 puff INHALATION Q4H PRN (Reason: shortness of breath) albuterol sulfate 2.5 mg /3 mL (0.083 %) solution for nebulization 2.5 mg inhalation Q4H PRN (Reason: Shortness Of Breath) Breztri Aerosphere 160-9-4.8 mcg/actuation HFA aerosol inhaler 2 inh inhalation BID Ozempic 0.25 mg or 0.5 mg(2 mg/1.5 mL) pen injector 2 mg SUBCUT Q7D Rx Instructions: on mondays Botox 100 unit recon soln 155 unit SUBCUT .q 3 months losartan 25 mg tablet 25 mg PO QAM azelastine-fluticasone 137-50 mcg/spray spray,non-aerosol 1 spray intranasal BID Rx Instructions: administer into each nostril levocetirizine [Xyzal] 5 mg tablet 5 mg PO DAILY buspirone 7.5 mg tablet 7.5 mg PO BID Qty: 60 1RF metoprolol succinate 100 mg tablet extended release 24 hr 100 mg PO BID Qty: 180 3RF venlafaxine [Effexor XR] 75 mg capsule,extended release 24hr 225 mg PO QAM 30 Days Qty: 90 2RF pramipexole 0.5 mg tablet 0.5 mg PO BID Qty: 60 2RF Nurtec ODT 75 mg tablet,disintegrating See Rx Instructions .ROUTE .COMPLEX Qty: 8 3RF Dose Instruction: DISSOLVE ONE TABLET BY MOUTH ONCE daily NEEDED FOR migraine Rx Instructions: DISSOLVE ONE TABLET BY MOUTH ONCE daily NEEDED FOR migraine bupropion HCl 300 mg tablet extended release 24 hr 300 mg PO DAILY 30 Days Qty: 30 1RF aripiprazole [Abilify] 10 mg tablet 10 mg PO DAILY Qty: 30 1RF acetaminophen 500 mg Tablet 1,000 mg PO Q6H PRN (Reason: Pain) ibuprofen 200 mg Tablet 800 mg PO Q6H PRN (Reason: Pain) ondansetron HCl 4 mg tablet 4 mg PO Q6H PRN (Reason: nausea and vomiting) Qty: 20 0RF Singulair 10 mg tablet 10 mg PO BEDTIME orphenadrine citrate 100 mg tablet extended release 100 mg PO Q12H PRN (Reason: Low back pain) Qty: 14 0RF Discharge Orders: Discharge ED (Routine); Ordered 09/25/24 Ordered By: Lala Christopher Referrals: Marcus Wills MD [Primary Care Provider] - Discharge Diet: Usual diet Discharge Activity: Increase activity as tolerated Patient Instructions: Urticaria (ED), Opioid Safety, Pain Management Activity Restrictions/Additional Instructions: Thank you for choosing [facility] for your healthcare needs today. Please realize this is an emergency room and that we are providing you with a medical screening exam and this may not be complete and all inclusive of all the testing and or work up that you may need to determine your ailment or severity of your illness. You have been screened and evaluated and felt safe for discharge. Health conditions do change or evolve sometimes and as such it is important that you follow up with your Primary Doctor to be re checked, 3-5 days is a general good time frame for follow up. You are always welcome to return to the ED for re assessment if your symptoms are worsening or you have new concerns Coding Level of Care Code ED Carding Doubler for Sheila Meraz
[2024-09-25 02:16] VITALS: BP 140/91; PULSE 97; O2SAT 97
[2024-09-25 02:24] VITALS: BP 136/83; PULSE 102; O2SAT 98
== END 2024-09-25 02:20 | disposition home or self-care (01) ==
PROVIDERS: Emergency Provider Emergency Medicine; PCP Family Medicine
DX: L29.9 Pruritus, unspecified (principal); T78.40XA Allergy, unspecified, initial encounter; Z87.891 Personal history of nicotine dependence; J44.9 Chronic obstructive pulmonary disease, unspecified; E11.9 Type 2 diabetes mellitus without complications
CPT/HCPCS: 96372; 99284; J2919

== ENCOUNTER 2024-09-25 22:28 | Emergency (ER) | payer MEDICARE, MEDICAID, SELFPAY ==
[2024-09-18 12:40] VITALS: BP 139/91; BMI 57.7
[2024-09-25 22:31] VITALS: BP 141/91; PULSE 99; RESP 20; TEMP 36.6; O2SAT 95
[2024-09-25 22:48] LABS: Glucose Point of Care 463 mg/dL (70-110)
[2024-09-25 23:07] VITALS: BP 120/79; PULSE 98; O2SAT 97
[2024-09-25 23:14] LABS: Glucose Point of Care 456 mg/dL (70-110)
[2024-09-25] MEDS: insulin regular-human 100 units/1 mL 15 UNIT IVP (23:17)
[2024-09-25 23:20] LABS: Basophils % 0.2 %; Eosinophils % 0.1 %; Hematocrit 38.2 % (36-47); Lymphocytes % 13.9 %; Mean Corpuscular HGB Conc 32.5 g/dL (30-55); Mean Corpuscular Hemoglobin 28.1 pg (27-33); Mean Corpuscular Volume 86.6 fl (85-98); Mean Platelet Volume 9.7 fL (7.4-10.4); Monocytes # 0.8 10^3/uL (0.2-0.9); Monocytes % 5.5 %; Neutrophils # 11.54 10^3/uL (1.8-7.7); Nucleated Red Blood Cells % 0 %; Platelet Count 295 10^3/cmm (157-399); Red Blood Count 4.41 10^6/uL (3.85-5.65); Red Cell Distribution Width 13.7 % (12.1-15.1); White Blood Count 14.42 10^3/uL (3.29-11.43)
--- NOTE | 2024-09-25 23:31 | ED_ITS ---
HPI - Recheck/Abnormal Lab/Rx 2 General: Chief Complaint: Recheck/Abnormal Lab/Rx Stated Complaint: bs over 500 after 34 unit of insulin in am Time Seen by Provider: 09/25/24 22:40 History of Present Illness: Patient presents emergency room with hyperglycemia. She says her sugar was over 600 at home. She did receive a steroid shot in the ER last night for pruritus. Mental status. No nausea or vomiting. She then later tells nursing that her sugar is always around 500 and they are working on it. Related Data Home Medications Medication Instructions Recorded Confirmed albuterol sulfate 90 mcg/actuation 1 - 2 puff inhalation Q4H PRN 12/10/19 08/20/24 aerosol inhaler (ProAir HFA) shortness of breath albuterol sulfate 2.5 mg/3 mL 2.5 mg inhalation Q4H PRN 01/21/21 08/20/24 (0.083 %) solution for nebulization Shortness Of Breath pantoprazole 40 mg tablet,delayed 40 mg PO QAM 06/08/21 08/20/24 release acetaminophen 500 mg tablet 1,000 mg PO Q6H PRN Pain 02/23/22 08/20/24 ibuprofen 200 mg tablet 800 mg PO Q6H PRN Pain 02/23/22 08/20/24 semaglutide 0.25 mg or 0.5 mg (2 2 mg SUBCUT Q7D 02/09/23 08/20/24 mg/1.5 mL) subcutaneous pen injector (Ozempic) losartan 25 mg tablet 25 mg PO QAM 07/12/23 08/20/24 onabotulinumtoxinA 100 unit 155 unit SUBCUT .q 3 months 09/22/23 08/20/24 solution for injection (Botox) montelukast 10 mg tablet 10 mg PO BEDTIME 11/13/23 08/20/24 (Singulair) budesonide 160 mcg-glycopyr 9 2 inh inhalation BID 12/01/23 08/20/24 mcg-formot 4.8 mcg/actuation HFA inhaler (Breztri Aerosphere) levocetirizine 5 mg tablet (Xyzal) 5 mg PO DAILY 02/01/24 08/20/24 azelastine 137 mcg-fluticasone 50 1 spray intranasal BID 03/29/24 08/20/24 mcg/spray nasal spray Previous Rx's Medication Instructions Recorded ondansetron HCl 4 mg tablet 4 mg PO Q6H PRN nausea and 02/23/22 vomiting #20 tabs metoprolol succinate 100 mg 100 mg PO BID #180 tabs 04/27/24 tablet,extended release 24 hr orphenadrine citrate 100 mg 100 mg PO Q12H PRN Low back pain 05/22/24 tablet,extended release #14 tabs buspirone 7.5 mg tablet 7.5 mg PO BID #60 tabs 08/01/24 venlafaxine 75 mg capsule,extended 225 mg (3 x 75 mg) PO QAM 30 days 08/17/24 release 24 hr (Effexor XR) #90 caps pramipexole 0.5 mg tablet 0.5 mg PO BID #60 tabs 08/22/24 rimegepant 75 mg disintegrating See Rx Instructions .Route 08/29/24 tablet (Nurtec ODT) .COMPLEX #8 tabs aripiprazole 10 mg tablet (Abilify) 10 mg PO DAILY #30 tabs 09/17/24 bupropion HCl 300 mg 24 hr tablet, 300 mg PO DAILY 30 days #30 tabs 09/17/24 extended release dexamethasone 6 mg tablet 6 mg PO DAILY 5 days #5 tabs 09/25/24 hydroxyzine HCl 25 mg tablet 25 mg PO Q8H PRN withdrawal 09/25/24 symptoms #30 tabs Allergies Allergy/AdvReac Type Severity Reaction Status Date / Time aspirin Allergy Severe ADR-Vomitin Verified 09/25/24 22:37 g lamotrigine [From Lamictal] Allergy Severe ALGY-Hives Verified 09/25/24 22:37 morphine Allergy Severe ALGY-Rash Verified 09/25/24 22:37 walnut Allergy Severe ALGY-Hives Verified 09/25/24 22:37 citalopram AdvReac Severe ADR-Halluci Verified 09/25/24 22:37 nating prednisone AdvReac Severe vomitting Verified 09/25/24 22:37 Review of Systems 2 Narrative: Constitutional symptoms: Negative except as documented in HPI. Skin symptoms: Negative except as documented in HPI. Eye symptoms: Negative except as documented in HPI. ENMT symptoms: Negative except as documented in HPI. Respiratory symptoms: Negative except as documented in HPI. Cardiovascular symptoms: Negative except as documented in HPI. Gastrointestinal symptoms: Negative except as documented in HPI. Genitourinary symptoms: Negative except as documented in HPI. Musculoskeletal symptoms: Negative except as documented in HPI. Neurologic symptoms: Negative except as documented in HPI. Psychiatric symptoms: Negative except as documented in HPI. Endocrine symptoms: Negative except as documented in HPI. PFSH ED 2 PFSH: Medical History Diabetes Nicotine dependence, cigarettes, uncomplicated Psychiatric care History of COPD History of restless legs syndrome History of neuropathy Chronic bronchitis Morbid obesity Common migraine with intractable migraine Borderline personality disorder Sleep apnea, unspecified Post-traumatic stress disorder, chronic Surgical History History of hysterectomy History of shoulder surgery History of tubal ligation History of endometrial ablation History of bladder repair surgery Family History Brother Diabetes Mother , Acute leukemia at age 42 Cancer Father Cancer Stage IV Kidney Cancer Grandmother Diabetes maternal Grandfather Stroke maternal Social History Smoking and tobacco/nicotine status: former use of tobacco/nicotine Quit status (tobacco/nicotine): considering quitting Second hand smoke exposure: Yes Alcohol intake: current Alcohol intake frequency: holidays/special occasions only Alcohol type: hard liquor Substance/Drug Use: current Substance/Drug use frequency: few times a month Other substance/drug use details: 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, 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 Adopted: No Caregiver/support person: Yes (sets up medication, VS and toenails and caregiver that cleans) Lives independently: Yes Household members: children Housing: Manufactured/Mobile home Marital status: Number of children: 3 Highest education level completed: Associate Degree: Occupational, Technical, Vocational Program 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 Skin: Warm, dry. Head: Normocephalic, atraumatic. Neck: Supple, trachea midline. Eye: Extraocular movements are intact. Ears, nose, mouth and throat: mucosa moist. Cardiovascular: Regular, Normal peripheral perfusion. Respiratory: Lungs are clear to auscultation, respirations are non-labored, breath sounds are equal, Symmetrical chest wall expansion. Gastrointestinal: Soft, Nontender, Non distended Musculoskeletal: Normal ROM, no deformity. Neurological: Alert and oriented, No focal neurological deficit observed. Psychiatric: Cooperative, appropriate mood & affect. Course 2 Vital Signs: Vital signs: Vital Signs Temperature 97.8 F 09/25/24 22:31 Pulse Rate 98 09/25/24 23:07 Respiratory Rate 20 H 09/25/24 22:31 Blood Pressure 120/79 09/25/24 23:07 Pulse Oximetry 97 09/25/24 23:07 Oxygen Delivery Me thod Room Air 09/25/24 23:07 MDM - Recheck/Abnormal Lab/Rx Medical Decision Making Medical decision making: Differential diagnosis for the patient with hyperglycemia would include but not be limited to and would be based on the above HPI review of systems and physical exam: DKA. Dehydration. Renal failure. Concern for electrolyte abnormalities. Concern for underlying infection that might result in hyperglycemia. Medical non-compliance Orders placed to evaluate differential diagnosis of the patient with hyperglycemia are based on the above differential, HPI and physical exam. Lab Review: Laboratory results were reviewed and interpreted by myself the emergency room physician. Mild leukocytosis with a white count of 14,000 which would be expected after having a steroid shot yesterday. Initial [id number] glucose was 456. I reviewed the patient's medical record. Reexamination: Patient remained stable. No increased work of breathing. No altered mental status. No focal motor deficits.. Sugars down into the 300s at discharge. No signs of acidosis or renal failure. Assessment and plan: Hyperglycemia ?15 units IV insulin in the emergency room. Discussed stopping the steroid for now and just using hydroxyzine for itching. - Discharged home - Discussed plan with patient. Answered any questions. - Evaluation and treatment of this problem were appropriate in the emergency setting. Lab Data 09/25/24 22:55 09/25/24 22:55 Laboratory Results WBC 14.42 10^3/uL (3.29-11.43) H 09/25/24 22:55 RBC 4.41 10^6/uL (3.85-5.65) 09/25/24 22:55 Hgb 12.40 g/dL (11.27-16.99) 09/25/24 22:55 Hct 38.2 % (36-47) 09/25/24 22:55 MCV 86.6 fl (85-98) 09/25/24 22:55 MCH 28.1 pg (27-33) 09/25/24 22:55 MCHC 32.5 g/dL (30-55) 09/25/24 22:55 RDW 13.7 % (12.1-15.1) 09/25/24 22:55 Plt Count 295 10^3/cmm (157-399) 09/25/24 22:55 MPV 9.7 fL (7.4-10.4) 09/25/24 22:55 Neut % (Auto) 80.0 % 09/25/24 22:55 Lymph % (Auto) 13.9 % 09/25/24 22:55 [place] % (Auto) 5.5 % 09/25/24 22:55 Eos % (Auto) 0.1 % 09/25/24 22:55 Baso % (Auto) 0.2 % 09/25/24 22:55 Neut # (Auto) 11.54 10^3/uL (1.8-7.7) H 09/25/24 22:55 Lymph # (Auto) 2.0 10^3/uL (0.8-4.8) 09/25/24 22:55 [place] # (Auto) 0.8 10^3/uL (0.2-0.9) 09/25/24 22:55 Eos # (Auto) 0.0 10^3/uL (0.0-0.8) 09/25/24 22:55 Baso # (Auto) 0.0 10^3/uL (0.0-0.1) 09/25/24 22:55 Nucleated RBC % (auto) 0 % 09/25/24 22:55 Nucleated RBCs # 0.0 /100WBC 09/25/24 22:55 Sodium 133 mmol/L (136-145) L 09/25/24 22:55 Potassium 4.3 mmol/L (3.5-5.1) 09/25/24 22:55 Chloride 95 mmol/L (98-107) L 09/25/24 22:55 Carbon Dioxide 24 mmol/L (22-29) 09/25/24 22:55 Anion Gap 18.3 (5-19) 09/25/24 22:55 BUN 13 mg/dL (6-20) 09/25/24 22:55 Creatinine 0.7 mg/dL (0.5-0.9) 09/25/24 22:55 GFR Calculation 90.5 mL/min (90-130) 09/25/24 22:55 Glucose 472 mg/dL (65-115) H 09/25/24 22:55 POC Glucose 456 mg/dL (70-110) H 09/25/24 23:10 Calculated Osmolality 297 mOsm/kg (285-295) H 09/25/24 22:55 Calcium 9.1 mg/dL (8.5-10.5) 09/25/24 22:55 No radiology studies performed this visit Discharge Plan Discharge Patient Disposition: Home Clinical Impression: Hyperglycemia Condition: Stable Prescriptions: No Action pantoprazole 40 mg tablet,delayed release (DR/EC) 40 mg PO QAM albuterol sulfate [ProAir HFA] 90 mcg/actuation HFA aerosol inhaler 1 - 2 puff INHALATION Q4H PRN (Reason: shortness of breath) albuterol sulfate 2.5 mg /3 mL (0.083 %) solution for nebulization 2.5 mg inhalation Q4H PRN (Reason: Shortness Of Breath) Breztri Aerosphere 160-9-4.8 mcg/actuation HFA aerosol inhaler 2 inh inhalation BID Ozempic 0.25 mg or 0.5 mg(2 mg/1.5 mL) pen injector 2 mg SUBCUT Q7D Rx Instructions: on mondays Botox 100 unit recon soln 155 unit SUBCUT .q 3 months losartan 25 mg tablet 25 mg PO QAM azelastine-fluticasone 137-50 mcg/spray spray,non-aerosol 1 spray intranasal BID Rx Instructions: administer into each nostril levocetirizine [Xyzal] 5 mg tablet 5 mg PO DAILY buspirone 7.5 mg tablet 7.5 mg PO BID Qty: 60 1RF metoprolol succinate 100 mg tablet extended release 24 hr 100 mg PO BID Qty: 180 3RF venlafaxine [Effexor XR] 75 mg capsule,extended release 24hr 225 mg PO QAM 30 Days Qty: 90 2RF pramipexole 0.5 mg tablet 0.5 mg PO BID Qty: 60 2RF Nurtec ODT 75 mg tablet,disintegrating See Rx Instructions .ROUTE .COMPLEX Qty: 8 3RF Dose Instruction: DISSOLVE ONE TABLET BY MOUTH ONCE daily NEEDED FOR migraine Rx Instructions: DISSOLVE ONE TABLET BY MOUTH ONCE daily NEEDED FOR migraine bupropion HCl 300 mg tablet extended release 24 hr 300 mg PO DAILY 30 Days Qty: 30 1RF aripiprazole [Abilify] 10 mg tablet 10 mg PO DAILY Qty: 30 1RF acetaminophen 500 mg Tablet 1,000 mg PO Q6H PRN (Reason: Pain) ibuprofen 200 mg Tablet 800 mg PO Q6H PRN (Reason: Pain) ondansetron HCl 4 mg tablet 4 mg PO Q6H PRN (Reason: nausea and vomiting) Qty: 20 0RF dexamethasone 6 mg tablet 6 mg PO DAILY 5 Days Qty: 5 0RF hydroxyzine HCl 25 mg tablet 25 mg PO Q8H PRN (Reason: withdrawal symptoms) Qty: 30 0RF Singulair 10 mg tablet 10 mg PO BEDTIME orphenadrine citrate 100 mg tablet extended release 100 mg PO Q12H PRN (Reason: Low back pain) Qty: 14 0RF Discharge Orders: Discharge ED (Routine); Ordered 09/25/24 Ordered By: Lala Christopher Referrals: Marcus Wills MD [Primary Care Provider] - Discharge Diet: As Directed Discharge Activity: Increase activity as tolerated Patient Instructions: Opioid Safety, Pain Management Activity Restrictions/Additional Instructions: Thank you for choosing [facility] for your healthcare needs today. Please realize this is an emergency room and that we are providing you with a medical screening exam and this may not be complete and all inclusive of all the testing and or work up that you may need to determine your ailment or severity of your illness. You have been screened and evaluated and felt safe for discharge. Health conditions do change or evolve sometimes and as such it is important that you follow up with your Primary Doctor to be re checked, 3-5 days is a general good time frame for follow up. You are always welcome to return to the ED for re assessment if your symptoms are worsening or you have new concerns Coding Level of Care Code ED Caustic Purification Operator for Sheila Meraz
[2024-09-25 23:35] LABS: Anion Gap 18.3 (5-19); Blood Urea Nitrogen 13 mg/dL (6-20); Calcium 9.1 mg/dL (8.5-10.5); Carbon Dioxide 24 mmol/L (22-29); Chloride 95 mmol/L (98-107); Creatinine Clr Calc Pharmacy 156.7755; Glomerular Filtration Rate 90.5 mL/min (90-130); Glucose 472 mg/dL (65-115); Osmolality Calculated 297 mOsm/kg (285-295); Potassium 4.3 mmol/L (3.5-5.1); Sodium 133 mmol/L (136-145)
[2024-09-25 23:50] LABS: Glucose Point of Care 327 mg/dL (70-110)
[2024-09-26 00:13] VITALS: BP 122/82; PULSE 99; O2SAT 96
== END 2024-09-26 | disposition home or self-care (01) ==
PROVIDERS: Emergency Provider Emergency Medicine; PCP Family Medicine
DX: E11.65 Type 2 diabetes mellitus with hyperglycemia (principal); Z87.891 Personal history of nicotine dependence; J44.9 Chronic obstructive pulmonary disease, unspecified
CPT/HCPCS: 36415; 36416; 80048; 82962; 85025; J1815

== ENCOUNTER → 2024-10-04 11:09 | Outpatient (BNVA) | payer MEDICARE, MEDICAID, SELFPAY ==
[2024-09-18 12:40] VITALS: BP 139/91; BMI 57.7
== END ==
PROVIDERS: PCP Family Medicine; Visit Provider Obstetrics & Gynecology
DX: E11.9 Type 2 diabetes mellitus without complications (principal)
CPT/HCPCS: 80053; 83036

== ENCOUNTER → 2024-10-30 08:18 | Outpatient (BNVA) | payer MEDICARE, MEDICAID, SELFPAY ==
[2024-09-18 12:40] VITALS: BP 139/91; BMI 57.7
== END ==
PROVIDERS: PCP Family Medicine; Referring Provider Obstetrics & Gynecology; Visit Provider Internal Medicine
DX: E11.9 Type 2 diabetes mellitus without complications (principal); E78.2 Mixed hyperlipidemia; I10 Essential (primary) hypertension
CPT/HCPCS: 99204

== ENCOUNTER → 2024-11-09 10:00 | Outpatient (BNVA) | payer MEDICARE, MEDICAID, SELFPAY ==
[2024-09-18 12:40] VITALS: BP 139/91; BMI 57.7
== END ==
PROVIDERS: PCP Family Medicine; Visit Provider Specialist
DX: G43.711 Chronic migraine without aura, intractable, with status migrainosus (principal)
CPT/HCPCS: 64615; J0585

== ENCOUNTER → 2024-12-19 11:10 | Outpatient (BNVA) | payer MEDICARE, MEDICAID, SELFPAY ==
[2024-09-18 12:40] VITALS: BP 139/91; BMI 57.7
== END ==
PROVIDERS: PCP Family Medicine; Visit Provider Internal Medicine
DX: E11.9 Type 2 diabetes mellitus without complications (principal); E78.2 Mixed hyperlipidemia; I10 Essential (primary) hypertension
CPT/HCPCS: 99214

== ENCOUNTER 2024-12-24 21:18 | Emergency (ER) | payer MEDICARE, MEDICAID, SELFPAY ==
[2024-09-18 12:40] VITALS: BP 139/91; BMI 57.7
--- NOTE | 2024-12-24 21:50 | XRR_ITS ---
PROCEDURE INFORMATION: Exam: XR Right Knee Exam date and time: 12/24/2024 11:11 PM Age: 44 years old Clinical indication: Injury or trauma; Other: Hyperextended RT knee; Other: Hyperextension TECHNIQUE: Imaging protocol: Radiologic exam of the right knee. Views: 3 views. COMPARISON: CR XR knee RT 1-2V [id number] 02/27/2024 11:40 AM FINDINGS: Bones/joints: Normal alignment. Tricompartmental marginal osteophyte formation. No acute fracture. Soft tissues: Normal. XR/XR knee RT 3V* [id number] IMPRESSION: Tricompartmental osteoarthritis without acute osseous abnormality.
[2024-12-24 23:05] VITALS: BP 132/79; PULSE 105; RESP 16; TEMP 36.8; O2SAT 96
[2024-12-25] MEDS: ketorolac 60 mg/2 mL INJ IM (00:13)
--- NOTE | 2024-12-25 00:30 | W.ED.EXTPRO ---
HPI - Extremity Problem General: Chief complaint: Extremity Injury, Lower Stated complaint: r knee pain Time Seen by Provider: 12/24/24 23:11 Source: patient Mode of arrival: ambulatory Limitations: no limitations History of Present Illness: Patient is a 44-year-old female who presents the emergency department complaining of right knee pain earlier today. She states that she does not know exactly what she did but feels that she hyperextended it, has been having increasing pain with ambulation to where she is reporting 10/10 pain. Has been taking ibuprofen and Tylenol, no relief. States that she has a history of surgery to the right knee in the past. She does note that she is set to have a right knee replacement, and does have history of arthritis. No calf pain, coolness to right lower extremity, or any other concerning symptoms reported at this time. MD Complaint: joint pain Onset (ago): hour(s) Pain Consistency: constant Location: right and knee Severity scale (1-10): 10 Radiation: none Exacerbating factors: range of motion, weight bearing and walking Associated symptoms: Deny chest pain, fever(s) or rash Related Data Home Medications ?Medication ?Instructions ?Recorded ?Confirmed albuterol sulfate 90 mcg/actuation 1 - 2 puff inhalation Q4H PRN 12/10/19 12/18/24 aerosol inhaler (ProAir HFA) shortness of breath albuterol sulfate 2.5 mg/3 mL 2.5 mg inhalation Q4H PRN 01/21/21 12/18/24 (0.083 %) solution for nebulization Shortness Of Breath pantoprazole 40 mg tablet,delayed 40 mg PO QAM 06/08/21 12/18/24 release acetaminophen 500 mg tablet 1,000 mg PO Q6H PRN Pain 02/23/22 12/18/24 ibuprofen 200 mg tablet 800 mg PO Q6H PRN Pain 02/23/22 12/18/24 semaglutide 0.25 mg or 0.5 mg (2 2 mg SUBCUT Q7D 02/09/23 12/18/24 mg/1.5 mL) subcutaneous pen injector (Ozempic) losartan 25 mg tablet 25 mg PO QAM 07/12/23 12/18/24 onabotulinumtoxinA 100 unit 155 unit SUBCUT .q 3 months 09/22/23 12/18/24 solution for injection (Botox) montelukast 10 mg tablet 10 mg PO BEDTIME 11/13/23 12/18/24 (Singulair) budesonide 160 mcg-glycopyr 9 2 inh inhalation BID 12/01/23 12/18/24 mcg-formot 4.8 mcg/actuation HFA inhaler (Breztri Aerosphere) levocetirizine 5 mg tablet (Xyzal) 5 mg PO DAILY 02/01/24 12/18/24 azelastine 137 mcg-fluticasone 50 1 spray intranasal BID 03/29/24 12/18/24 mcg/spray nasal spray nateglinide 60 mg tablet 60 mg PO TID 10/30/24 12/18/24 Previous Rx's ?Medication ?Instructions ?Recorded ondansetron HCl 4 mg tablet 4 mg PO Q6H PRN nausea and 02/23/22 vomiting #20 tabs metoprolol succinate 100 mg 100 mg PO BID #180 tabs 04/27/24 tablet,extended release 24 hr hydroxyzine HCl 25 mg tablet 25 mg PO Q8H PRN withdrawal 09/25/24 symptoms #30 tabs aripiprazole 10 mg tablet (Abilify) 10 mg PO DAILY #30 tabs 11/01/24 bupropion HCl 300 mg 24 hr tablet, 300 mg PO DAILY 30 days #30 tabs 11/01/24 extended release buspirone 7.5 mg tablet 7.5 mg PO BID #60 tabs 11/01/24 pramipexole 0.5 mg tablet 0.5 mg PO BID #60 tabs 11/01/24 venlafaxine 75 mg capsule,extended 225 mg (3 x 75 mg) PO QAM 30 days 11/01/24 release 24 hr (Effexor XR) #90 caps blood-glucose meter,continuous #1 ea 11/06/24 (Dexcom G7 License And Permit Specialist) blood-glucose sensor (Dexcom G7 #3 ea 11/06/24 Sensor device) rimegepant 75 mg disintegrating See Rx Instructions .Route 12/17/24 tablet (Nurtec ODT) .COMPLEX #8 tabs atorvastatin 20 mg tablet (Lipitor) 20 mg PO DAILY 1 month #30 tabs 12/19/24 insulin glargine-yfgn 100 unit/mL 100 unit SUBCUT DAILY 1 month #30 12/19/24 (3 mL) subcutaneous pen (Semglee mL (insulin glargine-yfgn) Pen) Allergies Allergy/AdvReac Type Severity Reaction Status Date / Time aspirin Allergy Severe ADR-Vomitin Verified 12/24/24 23:09 g lamotrigine (From Lamictal) Allergy Severe ALGY-Hives Verified 12/24/24 23:09 morphine Allergy Severe ALGY-Rash Verified 12/24/24 23:09 walnut Allergy Severe ALGY-Hives Verified 12/24/24 23:09 citalopram AdvReac Severe ADR-Halluci Verified 12/24/24 23:09 nating prednisone AdvReac Severe vomitting Verified 12/24/24 23:09 Review of Systems General: Reports: 10 or more systems reviewed and unremarkable except in HPI and below Const: Denies: fever(s) or chills Card: Denies: chest pain Resp: Denies: dyspnea or productive cough GI: Denies: abdominal pain, nausea, vomiting or diarrhea : Denies: flank pain Musc: Reports: joint pain (rt knee) and limited range of motion (rt knee); Denies: neck pain, back pain, extremity pain, extremity swelling, joint swelling, joint redness, joint warmth or muscle weakness Skin/Breast: Denies: rash Neuro: Denies: headache(s), numbness in extremities or weakness in extremities PFSH ED PFSH: Medical History Diabetes Nicotine dependence, cigarettes, uncomplicated Psychiatric care History of COPD History of restless legs syndrome History of neuropathy Chronic bronchitis Morbid obesity Common migraine with intractable migraine Borderline personality disorder Sleep apnea, unspecified Post-traumatic stress disorder, chronic Surgical History History of hysterectomy History of shoulder surgery History of tubal ligation History of endometrial ablation History of bladder repair surgery Family History Brother Diabetes Mother , Acute leukemia at age 42 Cancer Father Cancer Stage IV Kidney Cancer Grandmother Diabetes maternal Grandfather Stroke maternal Social History Smoking and tobacco/nicotine status: never used tobacco/nicotine Quit status (tobacco/nicotine): considering quitting Second hand smoke exposure: Yes Alcohol intake: current Alcohol intake frequency: holidays/special occasions only Alcohol type: hard liquor Substance/Drug Use: current Substance/Drug use frequency: few times a month Other substance/drug use details: 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, 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 Adopted: No Caregiver/support person: Yes (sets up medication, VS and toenails and caregiver that cleans) Lives independently: Yes Household members: children Housing: Manufactured/Mobile home Marital status: Number of children: 3 Highest education level completed: Associate Degree: Occupational, Technical, Vocational Program 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[employer], 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: No Current occupational status: disabled Pets and animals: Yes Pets & animals: cat(s) and dog(s) Leisure activites: art, games and other Leisure activities details: watch movies Sexually active: No Do you think of yourself as: Straight/Heterosexual Current gender identity: Female Carolee/Oriental Orthodox: Wicca Special carolee needs: No Agree to transfusion: Yes Female Reproductive History: Para: 3 Spontaneous abortions: No Physical Exam Const: COMMON NORMALS: no acute distress, patient oriented x3, no limitations, alert and well nourished NUTRITIONAL APPEARANCE: obese morbidly obese HENMT: COMMON NORMALS: normocephalic and atraumatic HEAD & SCALP: normocephalic and atraumatic Neck/C-Spine: COMMON NORMALS: full ROM, supple and no meningeal signs Resp: COMMON NORMALS: normal respiratory effort, No use of accessory muscles and clear to auscultation bilaterally AUSCULTATION: clear to auscultation bilaterally Cardio: COMMON NORMALS: regular rate and regular rhythm RATE: regular rate RHYTHM: regular rhythm Extremity: COMMON NORMALS: capillary refill normal, no joint enlargement and no clubbing, cyanosis or edema NARRATIVE EXTREMITY EXAM: No obvious swelling of the right knee. Mild tenderness to palpation to the right popliteal space. Range of motion limited secondary to pain. Joint laxity difficult to assess secondary to body habitus. Neuro: COMMON NORMALS: patient oriented x3, moves all extremities, no focal motor deficits and no sensory deficits noted SENSORIUM/ORIENTATION: Yes alert MENINGEAL SIGNS: Yes no meningeal signs Skin: COMMON NORMALS: no rashes or lesions noted GENERAL SKIN EXAM: no rashes or lesions noted Course Vital Signs: Vital signs: Vital Signs Temperature 98.2 F 12/24/24 23:05 Pulse Rate 105 H 12/24/24 23:05 Respiratory Rate 16 12/24/24 23:05 Blood Pressure 132/79 12/24/24 23:05 Pulse Oximetry 96 12/24/24 23:05 Oxygen Delivery Me thod Room Air 12/24/24 23:05 MDM - Extremity (Nontraumatic) Medical Decision Making Patient reports a traumatic injury to her right knee, physical exam ultimately unremarkable aside from reproducible tenderness to palpation of the right popliteal area. Though it was difficult to do any special knee testing secondary to her body habitus. X-ray was ultimately negative, I do suspect underlying sprain of the ligament, will have her follow-up with orthopedist for further evaluation potential MRI. Will be given crutches to use as needed and treat conservatively in the meantime. She agrees with this plan. Was given Toradol here for pain. Lab Data Radiology Impressions Knee X-Ray 12/24/24 21:50 IMPRESSION: Tricompartmental osteoarthritis without acute osseous abnormality. All radiology interpretation(s) finalized by discharge Discharge Plan Discharge Patient Disposition: Home Clinical Impression: Right knee sprain Condition: Stable Prescriptions: No Action pantoprazole 40 mg tablet,delayed release (DR/EC) 40 mg PO QAM albuterol sulfate [ProAir HFA] 90 mcg/actuation HFA aerosol inhaler 1 - 2 puff INHALATION Q4H PRN (Reason: shortness of breath) albuterol sulfate 2.5 mg /3 mL (0.083 %) solution for nebulization 2.5 mg inhalation Q4H PRN (Reason: Shortness Of Breath) Breztri Aerosphere 160-9-4.8 mcg/actuation HFA aerosol inhaler 2 inh inhalation BID nateglinide 60 mg tablet 60 mg PO TID Rx Instructions: give before meal(s) Ozempic 0.25 mg or 0.5 mg(2 mg/1.5 mL) pen injector 2 mg SUBCUT Q7D Rx Instructions: on mondays Botox 100 unit recon soln 155 unit SUBCUT .q 3 months losartan 25 mg tablet 25 mg PO QAM azelastine-fluticasone 137-50 mcg/spray spray,non-aerosol 1 spray intranasal BID Rx Instructions: administer into each nostril levocetirizine [Xyzal] 5 mg tablet 5 mg PO DAILY buspirone 7.5 mg tablet 7.5 mg PO BID Qty: 60 2RF bupropion HCl 300 mg tablet extended release 24 hr 300 mg PO DAILY 30 Days Qty: 30 2RF aripiprazole [Abilify] 10 mg tablet 10 mg PO DAILY Qty: 30 2RF venlafaxine [Effexor XR] 75 mg capsule,extended release 24hr 225 mg PO QAM 30 Days Qty: 90 2RF pramipexole 0.5 mg tablet 0.5 mg PO BID Qty: 60 2RF atorvastatin [Lipitor] 20 mg tablet 20 mg PO DAILY 30 Days Qty: 30 3RF insulin glargine-yfgn [Semglee(insulin glarg-yfgn)Pen] 100 unit/mL (3 mL) insulin pen 100 unit SUBCUT DAILY 30 Days Qty: 30 3RF metoprolol succinate 100 mg tablet extended release 24 hr 100 mg PO BID Qty: 180 3RF (DME) Dexcom G7 License And Permit Specialist Misc See Rx Instructions .Route Qty: 1 0RF Rx Instructions: As directed (DME) Dexcom G7 Sensor Device See Rx Instructions .Route Qty: 3 1RF Rx Instructions: change sensors every 10 days Nurtec ODT 75 mg tablet,disintegrating See Rx Instructions .ROUTE .COMPLEX Qty: 8 3RF Dose Instruction: DISSOLVE ONE TABLET BY MOUTH ONCE daily NEEDED FOR migraine Rx Instructions: DISSOLVE ONE TABLET BY MOUTH ONCE daily NEEDED FOR migraine acetaminophen 500 mg Tablet 1,000 mg PO Q6H PRN (Reason: Pain) ibuprofen 200 mg Tablet 800 mg PO Q6H PRN (Reason: Pain) ondansetron HCl 4 mg tablet 4 mg PO Q6H PRN (Reason: nausea and vomiting) Qty: 20 0RF hydroxyzine HCl 25 mg tablet 25 mg PO Q8H PRN (Reason: withdrawal symptoms) Qty: 30 0RF Singulair 10 mg tablet 10 mg PO BEDTIME Discharge Orders: Discharge ED (Routine); Ordered 12/25/24 Ordered By: Luigi Yoo Referrals: Marcus Wills MD [Primary Care Provider] - Patient Instructions: Knee Sprain (ED) Activity Restrictions/Additional Instructions: Crutches as needed, rest. Ice to the knee. Elevation and apply compression device. Ibuprofen and Tylenol for pain. Follow-up with orthopedics. Return with any new or worsening. Print Language: Pashto Coding Level of Care Code ED Environmental Resource Specialist for Sheila Meraz
[2024-12-25 00:39] VITALS: BP 108/59; PULSE 103; O2SAT 95
--- NOTE | 2024-12-26 10:07 | DCPLANNER ---
messaged ortho for er f/u
== END 2024-12-25 00:40 | disposition home or self-care (01) ==
PROVIDERS: Emergency Provider Physician Assistant; PCP Family Medicine
DX: S83.91XA Sprain of unspecified site of right knee, initial encounter (principal); Z79.4 Long term (current) use of insulin; E11.9 Type 2 diabetes mellitus without complications; J44.9 Chronic obstructive pulmonary disease, unspecified; X58.XXXA Exposure to other specified factors, initial encounter
CPT/HCPCS: 73562; 96372; 99284; E0114; J1885

== ENCOUNTER → 2024-12-31 09:22 | Outpatient (BNVA) | payer MEDICARE, MEDICAID, SELFPAY ==
[2024-09-18 12:40] VITALS: BP 139/91; BMI 57.7
== END ==
PROVIDERS: PCP Family Medicine; Visit Provider Orthopaedic Surgery
DX: M17.11 Unilateral primary osteoarthritis, right knee (principal)
CPT/HCPCS: 20610; 76830; 99204; J3301; J3490

== ENCOUNTER → 2025-01-14 09:36 | Outpatient (BNVA) | payer MEDICARE, MEDICAID, SELFPAY ==
[2025-01-11 10:15] VITALS: BP 139/91; BMI 57.7
== END ==
PROVIDERS: PCP Family Medicine; Visit Provider Orthopaedic Surgery
DX: M25.561 Pain in right knee (principal)
CPT/HCPCS: 99213

== ENCOUNTER 2025-01-20 22:19 | Emergency (ER) | payer MEDICARE, MEDICAID, SELFPAY ==
[2025-01-11 10:15] VITALS: BP 139/91; BMI 57.7
[2025-01-20 22:26] VITALS: BP 161/91; PULSE 109; RESP 18; TEMP 36.4; O2SAT 94; BMI 58.5
--- NOTE | 2025-01-20 23:20 | W.ED.HA ---
HPI - Headache General: Chief Complaint: Headache Stated Complaint: Migraine Time Seen by Provider: 01/20/25 22:30 History of Present Illness: 44-year-old female with a long history of migraine headache. She says she she is had a headache for the last 4 days. She has not taken Nurtec, Excedrin Migraine, acetaminophen, without much relief. She has had nausea, not currently. She is light sensitive. She is spent most the day in bed, sleeping, without relief as well. No neurological symptoms such as vision change, numbness, tingling, weakness, or language problems. Related Data Home Medications ?Medication ?Instructions ?Recorded ?Confirmed albuterol sulfate 90 mcg/actuation 1 - 2 puff inhalation Q4H PRN 12/10/19 01/14/25 aerosol inhaler (ProAir HFA) shortness of breath albuterol sulfate 2.5 mg/3 mL 2.5 mg inhalation Q4H PRN 01/21/21 01/14/25 (0.083 %) solution for nebulization Shortness Of Breath pantoprazole 40 mg tablet,delayed 40 mg PO QAM 06/08/21 01/14/25 release acetaminophen 500 mg tablet 1,000 mg PO Q6H PRN Pain 02/23/22 01/14/25 ibuprofen 200 mg tablet 800 mg PO Q6H PRN Pain 02/23/22 01/14/25 semaglutide 0.25 mg or 0.5 mg (2 2 mg SUBCUT Q7D 02/09/23 01/14/25 mg/1.5 mL) subcutaneous pen injector (Ozempic) losartan 25 mg tablet 25 mg PO QAM 07/12/23 01/14/25 onabotulinumtoxinA 100 unit 155 unit SUBCUT .q 3 months 09/22/23 01/14/25 solution for injection (Botox) montelukast 10 mg tablet 10 mg PO BEDTIME 11/13/23 01/14/25 (Singulair) budesonide 160 mcg-glycopyr 9 2 inh inhalation BID 12/01/23 01/14/25 mcg-formot 4.8 mcg/actuation HFA inhaler (Breztri Aerosphere) levocetirizine 5 mg tablet (Xyzal) 5 mg PO DAILY 02/01/24 01/14/25 azelastine 137 mcg-fluticasone 50 1 spray intranasal BID 03/29/24 01/14/25 mcg/spray nasal spray nateglinide 60 mg tablet 60 mg PO TID 10/30/24 01/14/25 Previous Rx's ?Medication ?Instructions ?Recorded ondansetron HCl 4 mg tablet 4 mg PO Q6H PRN nausea and 02/23/22 vomiting #20 tabs metoprolol succinate 100 mg 100 mg PO BID #180 tabs 04/27/24 tablet,extended release 24 hr hydroxyzine HCl 25 mg tablet 25 mg PO Q8H PRN withdrawal 09/25/24 symptoms #30 tabs aripiprazole 10 mg tablet (Abilify) 10 mg PO DAILY #30 tabs 11/01/24 bupropion HCl 300 mg 24 hr tablet, 300 mg PO DAILY 30 days #30 tabs 11/01/24 extended release buspirone 7.5 mg tablet 7.5 mg PO BID #60 tabs 11/01/24 pramipexole 0.5 mg tablet 0.5 mg PO BID #60 tabs 11/01/24 venlafaxine 75 mg capsule,extended 225 mg (3 x 75 mg) PO QAM 30 days 11/01/24 release 24 hr (Effexor XR) #90 caps blood-glucose meter,continuous #1 ea 11/06/24 (Dexcom G7 Addiction Nurse) blood-glucose sensor (Dexcom G7 #3 ea 11/06/24 Sensor device) rimegepant 75 mg disintegrating See Rx Instructions .Route 12/17/24 tablet ([facility] ODT) .COMPLEX #8 tabs atorvastatin 20 mg tablet (Lipitor) 20 mg PO DAILY 1 month #30 tabs 12/19/24 insulin glargine-yfgn 100 unit/mL 100 unit SUBCUT DAILY 1 month #30 12/19/24 (3 mL) subcutaneous pen (Semglee mL (insulin glargine-yfgn) Pen) Allergies Allergy/AdvReac Type Severity Reaction Status Date / Time aspirin Allergy Severe ADR-Vomitin Verified 01/20/25 22:29 g lamotrigine (From Lamictal) Allergy Severe ALGY-Hives Verified 01/20/25 22:29 morphine Allergy Severe ALGY-Rash Verified 01/20/25 22:29 walnut Allergy Severe ALGY-Hives Verified 01/20/25 22:29 citalopram AdvReac Severe ADR-Halluci Verified 01/20/25 22:29 nating prednisone AdvReac Severe vomitting Verified 01/20/25 22:29 PFS ED PFSH: Medical History Diabetes Nicotine dependence, cigarettes, uncomplicated Psychiatric care History of COPD History of restless legs syndrome History of neuropathy Chronic bronchitis Morbid obesity Common migraine with intractable migraine Borderline personality disorder Sleep apnea, unspecified Post-traumatic stress disorder, chronic Surgical History History of hysterectomy History of shoulder surgery History of tubal ligation History of endometrial ablation History of bladder repair surgery Family History Brother Diabetes Mother , Acute leukemia at age 42 Cancer Father Cancer Stage IV Kidney Cancer Grandmother Diabetes maternal Grandfather Stroke maternal Social History Smoking and tobacco/nicotine status: never used tobacco/nicotine Quit status (tobacco/nicotine): considering quitting Second hand smoke exposure: Yes Alcohol intake: current Alcohol intake frequency: holidays/special occasions only Alcohol type: hard liquor Substance/Drug Use: current Substance/Drug use frequency: few times a month Other substance/drug use details: 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, 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 Adopted: No Caregiver/support person: Yes (sets up medication, VS and toenails and caregiver that cleans) Lives independently: Yes Household members: children Housing: Manufactured/Mobile home Marital status: Number of children: 3 Highest education level completed: Associate Degree: Occupational, Technical, Vocational Program 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, 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: No Current occupational status: disabled Pets and animals: Yes Pets & animals: cat(s) and dog(s) Leisure activites: art, games and other Leisure activities details: watch movies Sexually active: No Do you think of yourself as: Straight/Heterosexual Current gender identity: Female Carolee/Jainism: Wicca Special carolee needs: No Agree to transfusion: Yes Female Reproductive History: Para: 3 Spontaneous abortions: No Physical Exam Const: COMMON NORMALS: no acute distress and alert GENERAL APPEARANCE: cooperative; not ill appearing and not frail appearing HENMT: COMMON NORMALS: normocephalic, atraumatic and Normal external nose present HEAD & SCALP: normocephalic and atraumatic FACE & SINUS: normal facial exam and face symmetric NOSE: Normal external nose present Eye: COMMON NORMALS: Equal, round and reactive pupils present and EOMs intact bilaterally PUPIL: Yes Equal, round and reactive pupils present Neck/C-Spine: GENERAL: Yes trachea midline Chest: CHEST: Yes Symmetrical chest wall rise Resp: COMMON NORMALS: normal respiratory effort, No retractions and No use of accessory muscles Cardio: COMMON NORMALS: regular rate and regular rhythm RATE: regular rate RHYTHM: regular rhythm GI: COMMON NORMALS: Normal to inspection, nondistended, normoactive bowel sounds present Neuro: LARISA COMA SCALE: document GCS findings Larisa coma scale eye opening: Spontaneous Campbell coma scale verbal response: Orientated Larisa coma scale motor response: Obey commands Campbell coma scale total score: 15 COMMON NORMALS: CN's II-XII intact bilaterally and no focal motor deficits SENSORIUM/ORIENTATION: Yes alert COORDINATION/BALANCE: [id number] test normal and [id number] test normal SPEECH: speech normal SENSORY EXAM: Yes extremities (intact) MOTOR EXAM: Pronator motor function not present COORDINATION: [id number] test normal and [id number] test normal Psych: COMMON NORMALS: speech normal SPEECH: Yes normal speech Skin: COMMON NORMALS: no rashes or lesions noted GENERAL SKIN EXAM: no rashes or lesions noted Course Vital Signs: Vital signs: Vital Signs Temperature 97.6 F 01/20/25 22:26 Pulse Rate 89 01/21/25 00:58 Respiratory Rate 18 01/21/25 00:58 Blood Pressure 168/70 01/21/25 00:58 Pulse Oximetry 98 01/21/25 00:58 Oxygen Delivery Me thod Room Air 01/20/25 22:26 MDM - Headache Medical Decision Making Significant improvement after medication here. Pain is down to 3. She feels as if she can go home. No alarming neurological findings. She will be allowed discharge to return for worsening symptoms. No radiology studies performed this visit Discharge Plan Discharge Patient Disposition: Home Clinical Impression: Common migraine with intractable migraine Condition: Stable Prescriptions: No Action pantoprazole 40 mg tablet,delayed release (DR/EC) 40 mg PO QAM albuterol sulfate [ProAir HFA] 90 mcg/actuation HFA aerosol inhaler 1 - 2 puff INHALATION Q4H PRN (Reason: shortness of breath) albuterol sulfate 2.5 mg /3 mL (0.083 %) solution for nebulization 2.5 mg inhalation Q4H PRN (Reason: Shortness Of Breath) Breztri Aerosphere 160-9-4.8 mcg/actuation HFA aerosol inhaler 2 inh inhalation BID nateglinide 60 mg tablet 60 mg PO TID Rx Instructions: give before meal(s) Ozempic 0.25 mg or 0.5 mg(2 mg/1.5 mL) pen injector 2 mg SUBCUT Q7D Rx Instructions: on mondays Botox 100 unit recon soln 155 unit SUBCUT .q 3 months losartan 25 mg tablet 25 mg PO QAM azelastine-fluticasone 137-50 mcg/spray spray,non-aerosol 1 spray intranasal BID Rx Instructions: administer into each nostril levocetirizine [Xyzal] 5 mg tablet 5 mg PO DAILY buspirone 7.5 mg tablet 7.5 mg PO BID Qty: 60 2RF bupropion HCl 300 mg tablet extended release 24 hr 300 mg PO DAILY 30 Days Qty: 30 2RF aripiprazole [Abilify] 10 mg tablet 10 mg PO DAILY Qty: 30 2RF venlafaxine [Effexor XR] 75 mg capsule,extended release 24hr 225 mg PO QAM 30 Days Qty: 90 2RF pramipexole 0.5 mg tablet 0.5 mg PO BID Qty: 60 2RF atorvastatin [Lipitor] 20 mg tablet 20 mg PO DAILY 30 Days Qty: 30 3RF insulin glargine-yfgn [Semglee(insulin glarg-yfgn)Pen] 100 unit/mL (3 mL) insulin pen 100 unit SUBCUT DAILY 30 Days Qty: 30 3RF metoprolol succinate 100 mg tablet extended release 24 hr 100 mg PO BID Qty: 180 3RF (DME) Dexcom G7 Addiction Nurse Misc See Rx Instructions .Route Qty: 1 0RF Rx Instructions: As directed (DME) Dexcom G7 Sensor Device See Rx Instructions .Route Qty: 3 1RF Rx Instructions: change sensors every 10 days Nurtec ODT 75 mg tablet,disintegrating See Rx Instructions .ROUTE .COMPLEX Qty: 8 3RF Dose Instruction: DISSOLVE ONE TABLET BY MOUTH ONCE daily NEEDED FOR migraine Rx Instructions: DISSOLVE ONE TABLET BY MOUTH ONCE daily NEEDED FOR migraine acetaminophen 500 mg Tablet 1,000 mg PO Q6H PRN (Reason: Pain) ibuprofen 200 mg Tablet 800 mg PO Q6H PRN (Reason: Pain) ondansetron HCl 4 mg tablet 4 mg PO Q6H PRN (Reason: nausea and vomiting) Qty: 20 0RF hydroxyzine HCl 25 mg tablet 25 mg PO Q8H PRN (Reason: withdrawal symptoms) Qty: 30 0RF Singulair 10 mg tablet 10 mg PO BEDTIME Discharge Orders: Discharge ED (Routine); Ordered 01/21/25 Ordered By: Costa Gunn Referrals: Marcus Wills MD [Primary Care Provider] - 1-3 days Patient Instructions: Acute Headache (ED), Opioid Safety, Pain Management Print Language: Sri Lankan Coding Level of Care Code ED Umbrella Mender for Sheila Meraz
[2025-01-20 23:50] VITALS: RESP 18; O2SAT 94
[2025-01-20] MEDS: prochlorperazine 10 mg/2 mL Inj IVP (23:50)
[2025-01-20] MEDS: ketorolac 30 mg/mL INJ IVP (23:50)
[2025-01-20] MEDS: fentaNYL 50 mcg/mL INJ 2mL 100 MCG IVP (23:50)
[2025-01-21 00:58] VITALS: BP 168/70; PULSE 89; RESP 18; O2SAT 98
== END 2025-01-21 00:59 | disposition home or self-care (01) ==
PROVIDERS: Emergency Provider Emergency Medicine; PCP Family Medicine
DX: G43.919 Migraine, unspecified, intractable, without status migrainosus (principal); J44.9 Chronic obstructive pulmonary disease, unspecified; E11.40 Type 2 diabetes mellitus with diabetic neuropathy, unspecified
CPT/HCPCS: 36415; 96374; 96375; 99284; J0780; J1885; J3010

== ENCOUNTER 2025-01-24 08:12 | Outpatient (CLI) | payer MEDICARE, MEDICAID, SELFPAY ==
[2025-01-11 10:15] VITALS: BP 139/91; BMI 57.7
[2025-01-24 08:55] LABS: Alanine Aminotransferase 25 U/L (0-33); Albumin Level 3.7 g/dL (3.5-5.2); Alkaline Phosphatase 101 U/L (35-105); Anion Gap 14.6 (5-19); Aspartate Amino Transferase 20 U/L (0-32); Blood Urea Nitrogen 18 mg/dL (6-20); Calcium 8.7 mg/dL (8.5-10.5); Carbon Dioxide 28 mmol/L (22-29); Chloride 100 mmol/L (98-107); Chol HDL Ratio 4.42 mg/dL (0.0-4.40); Cholesterol 190 mg/dL (0-200); Globulin 3.2 g/dL (1.3-4.6); Glomerular Filtration Rate 90.1 mL/min (90-130); Glucose 223 mg/dL (65-115); HDL Cholesterol 43 mg/dL (60-100); LDL Cholesterol Calculated 119 mg/dL (50-129); LDL HDL Ratio 2.77 RATIO (0.00-3.22); Osmolality Calculated 295 mOsm/kg (285-295); Potassium 4.6 mmol/L (3.5-5.1); Sodium 138 mmol/L (136-145); Total Bilirubin 0.4 mg/dL (0.15-1.2); Total Protein 6.9 g/dL (6.6-8.7); Triglycerides 142 mg/dL (0-150)
[2025-01-24 08:58] LABS: Estmated Average Glucose 212
[2025-01-24 08:59] LABS: Creatinine Urine, Random 61 mg/dL (28-217); Microalbum Creatinine Ratio Ur 16 mg/dL (0-20); Microalbumin Random Urine 1 ug/dL (0-20)
== END 2025-01-24 08:13 | disposition home or self-care (01) ==
LOC: LAB 08:14
PROVIDERS: PCP Family Medicine; Visit Provider Internal Medicine
DX: E11.9 Type 2 diabetes mellitus without complications (principal); I10 Essential (primary) hypertension; E78.2 Mixed hyperlipidemia
CPT/HCPCS: 36415; 80053; 80061; 82044; 83036

== ENCOUNTER → 2025-02-22 14:59 | Outpatient (BNVA) | payer MEDICARE, MEDICAID, SELFPAY ==
[2025-01-24 14:58] VITALS: BP 168/70; BMI 58.5
== END ==
PROVIDERS: PCP Family Medicine; Visit Provider Specialist
DX: G43.711 Chronic migraine without aura, intractable, with status migrainosus (principal)
CPT/HCPCS: 64615

== ENCOUNTER → 2025-03-29 09:57 | Outpatient (BNVA) | payer MEDICARE, MEDICAID, SELFPAY ==
[2025-01-24 14:58] VITALS: BP 168/70; BMI 58.5
== END ==
PROVIDERS: PCP Family Medicine; Visit Provider Internal Medicine
DX: E11.9 Type 2 diabetes mellitus without complications (principal); E78.2 Mixed hyperlipidemia; I10 Essential (primary) hypertension
CPT/HCPCS: 99214

== ENCOUNTER 2025-05-03 17:52 | Outpatient (CLI) | payer MEDICARE, MEDICAID, SELFPAY ==
[2025-01-24 14:58] VITALS: BP 168/70; BMI 58.5
--- NOTE | 2025-05-03 18:01 | XRR_ITS ---
PROCEDURE INFORMATION: Exam: XR Left Knee Exam date and time: 05/03/2025 6:06 PM Age: 44 years old Clinical indication: Pain; Knee; Left; Additional info: Lt knee pain TECHNIQUE: Imaging protocol: Radiologic exam of the left knee. Views: 3 views. COMPARISON: CR XR knee LT 1-2V [id number] 02/27/2024 11:40 AM FINDINGS: Bones/joints: Alignment is normal. Joint spaces are preserved. No acute fracture. No joint effusion. Small tricompartmental osteophytes. Soft tissues: Visible soft tissues are unremarkable. XR/XR knee LT 3V* [id number] IMPRESSION: No acute findings.
== END 2025-05-03 17:53 | disposition home or self-care (01) ==
PROVIDERS: PCP Family Medicine; Visit Provider Emergency Medicine
DX: M23.92 Unspecified internal derangement of left knee (principal)
CPT/HCPCS: 73562

== ENCOUNTER → 2025-05-06 13:59 | Outpatient (BNVA) | payer MEDICARE, MEDICAID, SELFPAY ==
[2025-01-24 14:58] VITALS: BP 168/70; BMI 58.5
== END ==
PROVIDERS: PCP Family Medicine; Visit Provider Specialist
DX: G43.711 Chronic migraine without aura, intractable, with status migrainosus (principal); G25.81 Restless legs syndrome; G60.3 Idiopathic progressive neuropathy
CPT/HCPCS: 36415; 82607; 82746; 85651; 86038; 99214

== ENCOUNTER → 2025-05-17 07:52 | Outpatient (BNVA) | payer MEDICARE, MEDICAID, SELFPAY ==
[2025-01-24 14:58] VITALS: BP 168/70; BMI 58.5
== END ==
PROVIDERS: PCP Family Medicine; Visit Provider Orthopaedic Surgery
DX: M22.8X1 Other disorders of patella, right knee (principal); M22.8X2 Other disorders of patella, left knee
CPT/HCPCS: 99213

== ENCOUNTER → 2025-05-27 12:21 | Outpatient (BNVA) | payer MEDICARE, MEDICAID, SELFPAY ==
[2025-01-24 14:58] VITALS: BP 168/70; BMI 58.5
== END ==
PROVIDERS: PCP Family Medicine; Visit Provider Specialist
DX: G43.711 Chronic migraine without aura, intractable, with status migrainosus (principal); G60.3 Idiopathic progressive neuropathy; G25.81 Restless legs syndrome
CPT/HCPCS: 64615; J0585; J9999

== ENCOUNTER 2025-06-04 17:19 | Emergency (ER) | payer MEDICARE, MEDICAID, SELFPAY ==
--- OUTSIDE RECORDS SUMMARY | 2024-08-19 04:00 | XMS_ITS ---
Author Organization [facility] Address [address] [place] [address] Care Team Providers Care Geographic Analyst Name Role Phone Ruben Curran Primary Care [...] Notes * Laila MCCLAINDOB:[birth year] (44 yo F)Acc No.[id number]:08/19/2024 Patient: Laila POWELL :1980 A ge:43 Y S ex:Female Address:[address] [place] [address] [address], [place] [address] Subjective: * Chief Complaints: * E MR-Devon [...] , Notes to Pharmacist: *Pick strength-form from [facility] for eRX* * Allergies: M orphine Sulfate: AllergyCeleXA: AllergyAspirin: AllergyLamictal 100 mg tablet: AllergypredniSONE: Allergy * * Date:
--- OUTSIDE RECORDS SUMMARY | 2024-09-12 09:20 | XMS_ITS ---
Author Organization [facility] Address [address] [place] [address] Care Team Providers Care Unit Operator Name Role Phone Ruben Curran Primary Care Provider Medhat e Ruben Curran Unavailable [phone] Allergies Allergen (clinical drug ingredient) Drug/Non Drug [...] W/U Status Risk Notes Problem Lumbosacral radiculopathy (6153799) Radiculopathy, lumbosacral region (M54.17) Active confirmed Problem Arthropathy of right knee joint (disorder) (033274172) Arthropathy of right knee (M17.11) Active confirmed Problem Abnormal gait (45436270) Abnormality of gait and mobility (R26.9) Active confirmed Problem Morbid obesity (852041544) Morbid obesity (E66.01) Active confirmed Problem Chronic pain syndrome (048278992) Chronic pain syndrome (G89.4) Active confirmed Encounters Encounter Location Date Provider Diagnosis [facility] [place] [address] [place] [phone] 09/12/2024 Ruben Curran Chronic pain syndrom e G89.4 ; Pain in left knee M25.562 ; Pain in right knee M25.561 ; Radiculopathy, lumbosacral region M54.17 ; Arthropathy of right knee M17.11 ; Illicit drug use F19.90 ; Abnormality of gait and mobility R26.9 ; Tobacco abuse Z72.0 ; Degeneration of intervertebral disc of lumbar region with discogenic back pain M51.360 ; residential (current) use of opiate analgesic Z79.891 ; [...] discogenic back pain (ICD-10 - M51.360) 09/12/2024 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 :1980 A ge:43 Y S ex:Female Date:09/12/2024 Address:[address] [place] [address] [place], [place] [id number] Pcp:Ruben Curran Subjective: * Chief Complaints: * [...] Electronic signature of Ruben Curran DO on 06/05/2025 at 06:17 PM CDT Sign off status: Pending * Provider: Sofi Curran D.O. Date: 11/12/2023 Generated for Judie walls/Rose/Tomaitting on: 0 06/05/2025 06:17 PM CDT
--- OUTSIDE RECORDS SUMMARY | 2024-10-08 09:15 | XMS_ITS ---
Author Organization [facility] Address [address] [place] [address] Care Team Providers Care Learning Support Services Director Name Role Phone Ruben Curran Primary Care Provider Johan Damon Unavailable [phone] REASON FOR VISIT rescheduled Medications Medication SIG [...] Active Encounters Encounter Location Date Provider Diagnosis [facility] [place] [address] [place] [address] 10/08/2024 Johan Bell Plan Of Treatment No Information Progress Notes * Laila MCCLAINDOB:[birth year] (44 yo F)Acc No.[id number]:10/08/2024 Progress Notes Patient: Laila Woods Provider: Dao Bell PA-C :1980 A ge:43 Y S ex:Female Date:10/08/2024 Address:[address] [place] [address] [address], [place], [id number] Pcp:Ruben Curran Subjective: * Chief Complaints: * [...] Alerts*Metoprolol Succinate , Notes to Pharmacist: *Pick strength-form [...] * Electronic signature of PENNIE Sheets on 06/05/2025 at 06:17 PM CDT Sign off status: Pending * Provider: Dao Bell PA-C Date: 1 12/09/2023 Generated for Judie walls/Rose/Ana on: 0 06/05/2025 06:17 PM CDT
[2025-01-24 14:58] VITALS: BP 168/70; BMI 58.5
[2025-06-04 17:26] VITALS: BP 121/84; PULSE 85; RESP 24; TEMP 36.5; O2SAT 96; BMI 61.1
--- NOTE | 2025-06-04 20:08 | W.ED.BACK ---
HPI - Back Pain/Injury General: Chief Complaint: Back Pain/Injury Stated Complaint: back pain, hurts to breathe Time Seen by Provider: 06/04/25 19:38 History of Present Illness: Patient is 44-year-old female awoke this morning with bilateral flank pain, left greater than right. She does then admit she has oligoanuria, dysuria, and frequent urination. New sexual partner. Her pain is so bad in her bilateral flank that is hard to take a breath and feels like it takes her breath away when she moves or has a pain. She stated this was upon wakening, however she did dishes, and felt like this was worse. No history of renal colic/urolithiasis Associated symptoms: Reports dysuria and urinary urgency; Deny abdominal pain, chills, fever(s), nausea or vomiting Related Data Home Medications ?Medication ?Instructions ?Recorded ?Confirmed albuterol sulfate 90 mcg/actuation 1 - 2 puff inhalation Q4H PRN 12/10/19 05/27/25 aerosol inhaler (ProAir HFA) shortness of breath albuterol sulfate 2.5 mg/3 mL 2.5 mg inhalation Q4H PRN 01/21/21 05/27/25 (0.083 %) solution for nebulization Shortness Of Breath pantoprazole 40 mg tablet,delayed 40 mg PO QAM 06/08/21 05/27/25 release acetaminophen 500 mg tablet 1,000 mg PO Q6H PRN Pain 02/23/22 05/27/25 ibuprofen 200 mg tablet 800 mg PO Q6H PRN Pain 02/23/22 05/27/25 losartan 25 mg tablet 25 mg PO QAM 07/12/23 05/27/25 onabotulinumtoxinA 100 unit 155 unit SUBCUT .q 3 months 09/22/23 05/27/25 solution for injection (Botox) montelukast 10 mg tablet 10 mg PO BEDTIME 11/13/23 05/27/25 (Singulair) budesonide 160 mcg-glycopyr 9 2 inh inhalation BID 12/01/23 05/27/25 mcg-formot 4.8 mcg/actuation HFA inhaler (Breztri ITDatabasephere) levocetirizine 5 mg tablet (Xyzal) 5 mg PO DAILY 02/01/24 05/27/25 azelastine 137 mcg-fluticasone 50 1 spray intranasal BID 03/29/24 05/27/25 mcg/spray nasal spray nateglinide 60 mg tablet 60 mg PO TID 10/30/24 05/27/25 Previous Rx's ?Medication ?Instructions ?Recorded ondansetron HCl 4 mg tablet 4 mg PO Q6H PRN nausea and 02/23/22 vomiting #20 tabs metoprolol succinate 100 mg 100 mg PO BID #180 tabs 04/27/24 tablet,extended release 24 hr atorvastatin 20 mg tablet See Rx Instructions .Route 03/29/25 .COMPLEX #90 tabs tirzepatide 10 mg/0.5 mL 10 mg (0.5 mL) SUBCUT Q7D 1 month 03/29/25 subcutaneous pen injector #2.5 mL (Mounjaro) tirzepatide 12.5 mg/0.5 mL 12.5 mg (0.5 mL) SUBCUT Q7D 1 03/29/25 subcutaneous pen injector month #2.5 mL (Mounjaro) tirzepatide 15 mg/0.5 mL 15 mg (0.5 mL) SUBCUT Q7D 1 month 03/29/25 subcutaneous pen injector #2.5 mL (Mounjaro) blood-glucose sensor (Dexcom G7 #9 ea 04/05/25 Sensor device) blood-glucose,pattern keeper,cont #1 ea 04/05/25 (Dexcom G7 Clinical Field Specialist) insulin degludec 100 unit/mL (3 160 unit (1.6 mL) SUBCUT DAILY 90 04/05/25 mL) subcutaneous pen ( #150 mL FlexTouch U-100 insulin) aripiprazole 10 mg tablet (Abilify) 10 mg PO DAILY #30 tabs 04/28/25 bupropion HCl 300 mg 24 hr tablet, 300 mg PO DAILY 30 days #30 tabs 04/28/25 extended release buspirone 7.5 mg tablet 7.5 mg PO BID #60 tabs 04/28/25 pramipexole 0.5 mg tablet 0.5 mg PO BID #60 tabs 04/28/25 venlafaxine 75 mg capsule,extended 225 mg (3 x 75 mg) PO QAM 30 days 04/30/25 release 24 hr (Effexor XR) #90 caps miscellaneous medical supply 1 ea miscellaneous .prn #1 ea 05/03/25 tramadol 50 mg tablet 50 mg PO Q6H PRN pain 5 days #20 05/03/25 tabs gabapentin 100 mg capsule 100 mg PO TID #90 caps 05/06/25 rimegepant 75 mg disintegrating See Rx Instructions .Route 05/15/25 tablet (Nurtec ODT) .COMPLEX #8 tabs cefdinir 300 mg capsule 300 mg PO BID 10 days #20 caps 06/04/25 Allergies Allergy/AdvReac Type Severity Reaction Status Date / Time aspirin Allergy Severe ADR-Vomitin Verified 06/04/25 17:31 g lamotrigine (From Lamictal) Allergy Severe ALGY-Hives Verified 06/04/25 17:31 morphine Allergy Severe ALGY-Rash Verified 06/04/25 17:31 walnut Allergy Severe ALGY-Hives Verified 06/04/25 17:31 citalopram AdvReac Severe ADR-Halluci Verified 06/04/25 17:31 nating prednisone AdvReac Severe vomitting Verified 06/04/25 17:31 Review of Systems Const: Denies: fever(s) or chills Eyes: Denies: change in vision or blurry vision Card: Denies: chest pain or palpitations Resp: Reports: dyspnea (With pain in her flanks only) GI: Denies: abdominal pain, nausea or vomiting : Reports: flank pain, difficulty voiding, dysuria, urinary frequency, urinary urgency and urinary hesitancy; Denies: dribbling, nocturia, oliguria, urinary incontinence or genital lesions Musc: Denies: neck pain or back pain Skin/Breast: Denies: rash or pruritus Neuro: Denies: headache(s) or numbness in extremities Psych: Denies: anxiety or depression Karan/Lymph: Denies: easy bruising or easy bleeding PFSH ED PFSH: Medical History (Updated 06/04/25 @ 21:11 by PENNIE Waldron) Diabetes Nicotine dependence, cigarettes, uncomplicated Psychiatric care History of COPD History of restless legs syndrome History of neuropathy Chronic bronchitis Morbid obesity Common migraine with intractable migraine Borderline personality disorder Sleep apnea, unspecified Post-traumatic stress disorder, chronic Surgical History History of hysterectomy History of shoulder surgery History of tubal ligation History of endometrial ablation History of bladder repair surgery Family History Brother Diabetes Mother , Acute leukemia at age 42 Cancer Father Cancer Stage IV Kidney Cancer Grandmother Diabetes maternal Grandfather Stroke maternal Social History Smoking and tobacco/nicotine status: current every day tobacco/nicotine user cigarettes Packs smoked per day: 0.50 Years cigarettes smoked: 25 and e-cigarettes E-Cigarette Details: e-cigarette and with nicotine E-cig/vape details: 1200 puff vape that last about a month Quit status (tobacco/nicotine): considering quitting Second hand smoke exposure: Yes Alcohol intake: current Alcohol intake frequency: holidays/special occasions only Alcohol type: hard liquor Substance/Drug Use: current Substance/Drug use frequency: few times a month Other substance/drug use details: 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, 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 Adopted: No Caregiver/support person: Yes (sets up medication, VS and toenails and caregiver that cleans) Lives independently: Yes Household members: children Housing: Manufactured/Mobile home Marital status: Number of children: 3 Highest education level completed: Associate Degree: Occupational, Technical, Vocational Program 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, 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: No Current occupational status: disabled Pets and animals: Yes Pets & animals: cat(s) and dog(s) Leisure activites: art, games and other Leisure activities details: watch movies Sexually active: No Do you think of yourself as: Straight/Heterosexual Current gender identity: Female Carolee/Congregation: [employer] Special carolee needs: No Agree to transfusion: Yes Female Reproductive History: Para: 3 Spontaneous abortions: No Physical Exam Const: COMMON NORMALS: no acute distress, average body habitus and patient oriented x3 HENMT: COMMON NORMALS: normocephalic and atraumatic HEAD & SCALP: normocephalic and atraumatic Neck/C-Spine: COMMON NORMALS: full ROM, no lymphadenopathy, supple and no meningeal signs Lymph: LYMPHATIC: no lymphadenopathy noted Chest: COMMONS NORMALS: normal inspection of the chest, normal palpation of entire chest wall and normal palpation of the breasts BREAST/AXILLA PALPATION: Yes normal palpation of the breasts Resp: COMMON NORMALS: normal respiratory effort, No retractions and clear to auscultation bilaterally AUSCULTATION: clear to auscultation bilaterally Cardio: COMMON NORMALS: regular rate and regular rhythm RATE: regular rate RHYTHM: regular rhythm GI: COMMON NORMALS: Normal to inspection, nondistended, normoactive bowel sounds present, Soft to palpation, non-tender and No hepatosplenomegaly present PALPATION: Yes Soft to palpation and Yes No hepatosplenomegaly present : BLADDER/KIDNEY EXAM: Yes CVA tenderness (L>R) bilateral Back/Pelvis: GENERAL BACK: Yes CVA tenderness (L>R) Extremity: COMMON NORMALS: normal to inspection, full ROM and capillary refill normal Neuro: COMMON NORMALS: patient oriented x3 MENINGEAL SIGNS: Yes no meningeal signs Psych: COMMON NORMALS: mental status grossly normal, Normal thought process present, cooperative, normal affect and speech normal SPEECH: Yes normal speech THOUGHT PROCESS: Normal thought process present Skin: COMMON NORMALS: no rashes or lesions noted and no wounds GENERAL SKIN EXAM: no rashes or lesions noted Course Vital Signs: Vital signs: Vital Signs Temperature 97.7 F 06/04/25 17:26 Pulse Rate 85 06/04/25 17:26 Respiratory Rate 24 H 06/04/25 17:26 Blood Pressure 121/84 06/04/25 17:26 Pulse Oximetry 96 06/04/25 17:26 Oxygen Delivery Me thod Room Air 06/04/25 17:26 MDM - Back Pain/Injury Medical Decision Making Patient is 44-year-old female with bilateral flank pain and dysuria, new sexual partner. Will check urine analysis with concern possibly UTI and/or pyelo- Minimal WBCs in UA, however will treat as pyuria. This symptoms are consistent with pyelonephritis/cystitis. Patient did not have RBCs, and therefore less likely renal colic. Additional concern would be STI. I did have patient leave new urine analysis for urine culture. This can be further evaluated after culture is complete. Medical Records I reviewed the patient's medical records. Labs I reviewed the patient's lab results. Laboratory Results Urine Color Yellow (Yellow) 06/04/25 20:16 Urine Appearance Cloudy (CLEAR) A 06/04/25 20:16 Urine pH 5.0 (5-7) 06/04/25 20:16 Ur Specific [place] 1.022 (1.005-1.030) 06/04/25 20:16 Urine Protein Negative (Negative) 06/04/25 20:16 Urine Glucose (UA) Negative (Normal) 06/04/25 20:16 Urine Ketones Trace (Negative) 06/04/25 20:16 Urine Blood Negative (Negative) 06/04/25 20:16 Urine Nitrate Negative (Negative) 06/04/25 20:16 Urine Bilirubin Negative (Negative) 06/04/25 20:16 Urine Urobilinogen 1.0 mg/dL (Negative) 06/04/25 20:16 Ur Leukocyte Esterase Trace (Negative) A 06/04/25 20:16 Urine RBC 0-2 /hpf (0-2) 06/04/25 20:16 Urine WBC 6-10 /hpf (0-5) 06/04/25 20:16 Ur Squamous Epith Cells 11-20 /hpf (0-5) H 06/04/25 20:16 Amorphous Sediment Not Reportable 06/04/25 20:16 Urine Bacteria 1+ /hpf (NONE) H 06/04/25 20:16 Hyaline Casts 2.46 /lpf 06/04/25 20:16 No radiology studies performed this visit Discharge Plan Discharge Patient Disposition: Home Clinical Impression: Dysuria, Pyuria Condition: Stable Prescriptions: New cefdinir 300 mg capsule 300 mg PO BID 10 Days Qty: 20 0RF No Action pantoprazole 40 mg tablet,delayed release (DR/EC) 40 mg PO QAM albuterol sulfate [ProAir HFA] 90 mcg/actuation HFA aerosol inhaler 1 - 2 puff INHALATION Q4H PRN (Reason: shortness of breath) albuterol sulfate 2.5 mg /3 mL (0.083 %) solution for nebulization 2.5 mg inhalation Q4H PRN (Reason: Shortness Of Breath) Breztri Aerosphere 160-9-4.8 mcg/actuation HFA aerosol inhaler 2 inh inhalation BID nateglinide 60 mg tablet 60 mg PO TID Rx Instructions: give before meal(s) Mounjaro 10 mg/0.5 mL pen injector 10 mg SUBCUT Q7D 30 Days Qty: 2.5 0RF Mounjaro 12.5 mg/0.5 mL pen injector 12.5 mg SUBCUT Q7D 30 Days Qty: 2.5 0RF Mounjaro 15 mg/0.5 mL pen injector 15 mg SUBCUT Q7D 30 Days Qty: 2.5 3RF venlafaxine [Effexor XR] 75 mg capsule,extended release 24hr 225 mg PO QAM 30 Days Qty: 90 2RF tramadol 50 mg tablet 50 mg PO Q6H PRN (Reason: pain) 5 Days Qty: 20 0RF miscellaneous medical supply Misc 1 ea miscellaneous .prn Qty: 1 0RF Botox 100 unit recon soln 155 unit SUBCUT .q 3 months losartan 25 mg tablet 25 mg PO QAM azelastine-fluticasone 137-50 mcg/spray spray,non-aerosol 1 spray intranasal BID Rx Instructions: administer into each nostril levocetirizine [Xyzal] 5 mg tablet 5 mg PO DAILY gabapentin 100 mg capsule 100 mg PO TID Qty: 90 1RF metoprolol succinate 100 mg tablet extended release 24 hr 100 mg PO BID Qty: 180 3RF atorvastatin 20 mg tablet See Rx Instructions .ROUTE .COMPLEX Qty: 90 0RF Dose Instruction: TAKE 1 TABLET BY MOUTH EVERY DAY FOR ONE MONTH Rx Instructions: TAKE 1 TABLET BY MOUTH EVERY DAY FOR ONE MONTH insulin degludec [Tresiba FlexTouch U-100] 100 unit/mL (3 mL) insulin pen 160 unit SUBCUT DAILY 90 Days Qty: 150 1RF (DME) Dexcom G7 Clinical Field Specialist Misc See Rx Instructions .Route Qty: 1 0RF Rx Instructions: As directed ([facility] [place] Dexcom G7 Sensor Device See Rx Instructions .Route Qty: 9 0RF Rx Instructions: change sensors every 10 days buspirone 7.5 mg tablet 7.5 mg PO BID Qty: 60 2RF bupropion HCl 300 mg tablet extended release 24 hr 300 mg PO DAILY 30 Days Qty: 30 2RF aripiprazole [Abilify] 10 mg tablet 10 mg PO DAILY Qty: 30 2RF pramipexole 0.5 mg tablet 0.5 mg PO BID Qty: 60 2RF Nurtec ODT 75 mg tablet,disintegrating See Rx Instructions .ROUTE .COMPLEX Qty: 8 3RF Dose Instruction: DISSOLVE ONE TABLET BY MOUTH once daily NEEDED for migraine Rx Instructions: DISSOLVE ONE TABLET BY MOUTH once daily NEEDED for migraine acetaminophen 500 mg Tablet 1,000 mg PO Q6H PRN (Reason: Pain) ibuprofen 200 mg Tablet 800 mg PO Q6H PRN (Reason: Pain) ondansetron HCl 4 mg tablet 4 mg PO Q6H PRN (Reason: nausea and vomiting) Qty: 20 0RF Singulair 10 mg tablet 10 mg PO BEDTIME Discharge Orders: Discharge ED (Routine); Ordered 06/04/25 Ordered By: Ashley Cleaning Referrals: Marcus Wills MD [Primary Care Provider, Family Practice] Discharge Diet: Usual diet Discharge Activity: Resume usual activity Patient Instructions: Flank Pain (ED), Patient Portal & Geovanna Instructions Activity Restrictions/Additional Instructions: You will need to follow-up with your primary regarding today's urine analysis. Your urine culture is pending. Antibiotics have been sent to the pharmacy of choice. Make sure you take a probiotic or eat active culture yogurt to avoid infectious diarrhea. Given the fact the urine culture is pending, if this is the incorrect antibiotic, someone will contact you. Ibuprofen and Tylenol for pain Return to ED for same ongoing symptoms, that are worsening in nature, or fever greater than 100.4 ?F. Make sure you follow-up with your primary regarding today's visit with these concerns. Print Language: Pashto Coding Level of Care Code ED Senior Computer Specialist for Sheila Meraz
[2025-06-04 20:53] LABS: Glucose Urine UA Negative (Normal); Nitrate Urine Negative (Negative); Specific Gravity, Urine 1.022 (1.005-1.030)
[2025-06-04 20:55] LABS: Add Urine Microscopic? YES
[2025-06-04 22:00] VITALS: BP 130/84; PULSE 84; O2SAT 97
[2025-06-04] MEDS: orphenadrine 30 mg/mL Inj 2 mL 60 MG IM (22:00)
[2025-06-04] MEDS: cefTRIAXone 1,000 MG in water for injection-sterile 2.1 ML 1 MG IM (22:00)
--- OUTSIDE RECORDS SUMMARY | 2025-06-05 18:17 | XMS_ITS | Clinical Summary ---
Author Organization [facility] National Address [address] [place] [address] Care Team Providers Care Biodiesel Plant Manager Name Role Phone Unavailable Primary Care Provider Unavailabl e Allergies Active Allergy Reactions Criticality Noted Date Comments Aspirin Nausea and Vomiting Low 07/07/2017 Citalopram Hallucination Low 07/07/2017 Prednisone Nausea and Vomiting Low 07/07/2017 Medications DULoxetine (CYMBALTA) 60 mg Capsule, Delayed Release(E.C.) Take 60 mg by mouth daily. Active rOPINIRole (REQUIP) 2 mg Tablet Take 2 mg by mouth 3 times daily. Active Active Problems Problem Noted Date Diagnosed Date Restless leg syndrome 07/07/2017 Severe episode of recurrent major depressive disorder, without psychotic features 07/07/2017 Social History Tobacco Use Types Packs/Day Years Used Date Smoking Tobacco: Every Day Cigarettes Smokeless Tobacco: Never Comments No Sex and Gender Information Value Date Recorded Sex Assigned at Not on file Legal Sex Female 8:53 AM CDT Gender Identity Not on file Sexual Orientation Not on file Last Filed Vital Signs Vital Sign Reading Time Taken Comments Blood Pressure 130/90 07/07/2017 1:47 PM CDT Pulse 97 07/07/2017 1:47 PM CDT Temperature - - Respiratory Rate 18 07/07/2017 1:47 PM CDT Oxygen Saturation - - Inhaled Oxygen Concentration - - Weight 128.4 kg (283 lb) 07/07/2017 1:47 PM CDT Height 170.2 cm (5' 7 ) 07/07/2017 1:47 PM CDT Body Mass Index 44.32 07/07/2017 1:47 PM CDT Plan of Treatment Health Maintenance Due Date Last Done Comments DTAP/TDAP/TD VACCINES (1 - Tdap) 1997 HEPATITIS B VACCINES (1 of 3 - 19+ 3-dose series) 1997 HPV/Cotest (21-29) 1999 CERVICAL CANCER SCREENING 2008 HPV/Cotest (30-65) 2008 PAP SMEAR 2008 BREAST CANCER SCREENING 2018 COLORECTAL SCREENING 2023 Colorectal Cancer Screening 2023 FIT-DNA Q 3 years 2023 FIT/FOBT Q 1 year 2023 Flex Sig/CT Colonography Q 5 years 2023 INFLUENZA VACCINE (#1) 2025 HPV VACCINES Aged Out No longer eligi ble based on patient's age to complete this topic Insurance [facility]
--- OUTSIDE RECORDS SUMMARY | 2025-06-05 18:17 | XMS_ITS | Clinical Summary ---
[facility] Address [address] [facility] Attn: [place] [address] Care Team Providers Care Railroad Operating Engineer Name Role Phone Unavailable Primary Care Provider Unavailabl e Allergies Active Allergy Reactions Criticality Noted Date Comments Aspirin Nausea and Vomiting Low 07/07/2017 Citalopram Hallucination Low 07/07/2017 Prednisone Nausea and Vomiting Low 07/07/2017 Medications DULoxetine (CYMBALTA) 60 mg Capsule, Delayed Release(E.C.) Take 60 mg by mouth daily. 07/07/2017 Active rOPINIRole (REQUIP) 2 mg Tablet Take 2 mg by mouth 3 times daily. 07/07/2017 Active Active Problems Problem Noted Date Diagnosed Date Restless leg syndrome 07/07/2017 Severe episode of recurrent major depressive disorder, without psychotic features 07/07/2017 Encounters Date Type Department Care Team Description 05/21/2025 [facility] [place] [id number] [place] [address] Provider, Abstract from Last 3 Months Social History Tobacco Use Types Packs/Day Years Used Date Smoking Tobacco: Every Day Cigarettes Smokeless Tobacco: Never Comments Unknown Sex and Gender Information Value Date Recorded Sex Assigned at Not on file Legal Sex Female 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
--- OUTSIDE RECORDS SUMMARY | 2025-06-05 18:17 | XMS_ITS | Patient Health Record ---
Author Organization [facility] Address [address] [place] [address] Care Team Providers Care Health Care Coordinator Name Role Phone Ruben Curran Primary Care Provider Unavailabl e Migration, Provider Unavailable Unavailable Ruben Curran Unavailable [phone] Tonya Giordano Unavailable [phone] Johan Bell Unavailable [phone] Allergies Allergen (clinical drug ingredient) Drug/Non Drug Allergy documented on EMR Reaction Allergy Type Onset Date Status aspirin Aspirin Unknown Drug Allergy Active citalopram CeleXA Unknown Drug Allergy Active lamotrigine LaMICtal Unknown Drug Allergy Activ e morphine Morphine Sulfate Unknown Drug Allergy Active predniSONE Unknown Drug Allergy Active Reason For Referral No Information Medications Medication SIG (Take, Route, Frequency, Duration) [...] Medispan for eRx and Interaction Alerts* Active Anoro Ellipta *Pick strength-f orm from [employer] for eRX* Active Albuterol Sulfate *Pick strength -form from [employer] for eRX* Active Aimovig Autoinjector *Reorder fr om [employer] for eRx and Interaction Alerts* Active Plavix *Pick strength-f orm from [employer] for eRX* Active Metoprolol Succinate *Pick stren gth-form from [employer]pan for eRX* Active Metformin *Reorder from [facility] for eRx and Interaction Alerts* Active Effexor XR *Pick strength-f orm from [facility] for eRX* Active Mirapex *Reorder from [facility] for eRx and Interaction Alerts* Active Social History Social History Additional Details [...] Problem Status W/U Status Risk Notes Problem Chronic pain syndrome (881262517) Chronic pain syndrome (G89.4) Active confirmed Problem Lumbosacral radiculopathy (2254431) Radiculopathy, lumbosacral region (M54.17) Active confirmed Problem Arthropathy of right knee joint (disorder) (067006830) Arthropathy of right knee (M17.11) Active confirmed Problem Morbid obesity (983931045) Morbid obesity (E66.01) Active confirmed Problem Abnormal gait (23799927) Abnormality of gait and mobility (R26.9) Active confirmed Encounters Encounter Location Date Provider Diagnosis [facility] [address] [place] [address] 06/07/2024 Ruben Cur[facility] [place] [address] [place] [phone] 07/05/2024 Tonya Giordano [facility] 0 0 08/18/2024 Provider Migration [facility]Fac[facility] 0 0 08/19/2024 Provider Migration Plan Of Treatment No Information Medical (General) History Surgical History Surgery Date(Month/Year) Achilles tendon repair Bladder surgery Hysterectomy Knee Surgery Shoulder surgery
--- OUTSIDE RECORDS SUMMARY | 2025-06-05 18:17 | XMS_ITS ---
Author Organization Unknown Problems Date Problem Result OnSetDate Icd10 SnomedCode Severity Cu stom 09/12/2024 00:00:00 Radiculopathy, lumbosacral region M54.17 [id number] 09/12/2024 00:00:00 Arthropathy of right knee M17.11 [id number] 09/12/2024 00:00:00 Abnormality of gait and mobility R26.9 [id number] 09/12/2024 00:00:00 Morbid obesity E66.01 [id number] 09/12/2024 00:00:00 Chronic pain syndrome G89.4 [id number]
== END 2025-06-04 23:41 | disposition home or self-care (01) ==
PROVIDERS: Emergency Provider Physician Assistant; PCP Family Medicine
DX: R30.0 Dysuria (principal); R82.81 Pyuria; Z79.4 Long term (current) use of insulin; F17.210 Nicotine dependence, cigarettes, uncomplicated; E11.9 Type 2 diabetes mellitus without complications; J44.9 Chronic obstructive pulmonary disease, unspecified
CPT/HCPCS: 81001; 87086; 96372; 99284; J0696; J1885; J2360

== ENCOUNTER 2025-06-05 07:33 | Outpatient (RCR) | payer MEDICARE, MEDICAID, SELFPAY ==
[2025-01-24 14:58] VITALS: BP 168/70; BMI 58.5
== END 2025-06-23 23:59 | disposition home or self-care (01) ==
LOC: SPT 07:33
PROVIDERS: PCP Family Medicine; Visit Provider Orthopaedic Surgery
DX: M25.562 Pain in left knee (principal); G89.29 Other chronic pain
CPT/HCPCS: 97110; 97161

== ENCOUNTER 2025-06-10 07:54 | Outpatient (CLI) | payer MEDICARE, MEDICAID, SELFPAY ==
[2024-09-18 12:40] VITALS: BP 139/91; BMI 57.7
[2025-01-24 14:58] VITALS: BP 168/70; BMI 58.5
--- NOTE | 2025-06-10 07:58 | MM_ITS ---
WS: [id number] Bilateral screening 3D tomosynthesis digital mammogram, 06/10/2025 8:02 AM Clinical Data: Z12.39 - Encounter for other screening for malignant neop... Comparison: 04/20/2024, 01/14/2023, 01/26/2021, 10/19/2019. Findings: No spiculated masses or clustered calcifications are seen. There are no secondary signs of carcinoma. MM/MM scr BI tomosynthesis 18240 Impression: Negative bilateral mammogram unchanged. Recommend annual screening mammograms. BIRADS: 1 - Negative. FOLLOW UP: 1 Year Follow-up DENSITY: There are scattered areas of fibroglandular density. The CAD credit report checker was used
== END 2025-06-10 07:55 | disposition home or self-care (01) ==
LOC: RAD 07:54
PROVIDERS: PCP Family Medicine; Visit Provider Obstetrics & Gynecology
DX: Z12.31 Encounter for screening mammogram for malignant neoplasm of breast (principal)
CPT/HCPCS: 77063; 77067

== ENCOUNTER → 2025-06-11 09:30 | Outpatient (BNVA) | payer MEDICARE, MEDICAID, SELFPAY ==
[2025-01-24 14:58] VITALS: BP 168/70; BMI 58.5
== END ==
PROVIDERS: PCP Family Medicine; Referring Provider Specialist; Visit Provider Specialist
DX: G60.3 Idiopathic progressive neuropathy (principal)
CPT/HCPCS: 95913

== ENCOUNTER 2025-06-24 05:00 | Outpatient (RCR) | payer MEDICARE, MEDICAID, SELFPAY ==
[2025-01-24 14:58] VITALS: BP 168/70; BMI 58.5
== END 2025-07-17 10:04 | disposition home or self-care (01) ==
LOC: SPT 05:00
PROVIDERS: PCP Family Medicine; Visit Provider Orthopaedic Surgery
DX: M25.562 Pain in left knee (principal); G89.29 Other chronic pain
CPT/HCPCS: 97110

== ENCOUNTER → 2025-06-28 10:41 | Outpatient (BNVA) | payer MEDICARE, MEDICAID, SELFPAY ==
[2025-01-24 14:58] VITALS: BP 168/70; BMI 58.5
== END ==
PROVIDERS: PCP Family Medicine; Visit Provider Internal Medicine
DX: E11.9 Type 2 diabetes mellitus without complications (principal); E78.2 Mixed hyperlipidemia; Z79.84 Long term (current) use of oral hypoglycemic drugs
CPT/HCPCS: 99214

== ENCOUNTER → 2025-07-12 09:09 | Outpatient (BNVA) | payer MEDICARE, MEDICAID, SELFPAY ==
[2025-01-24 14:58] VITALS: BP 168/70; BMI 58.5
== END ==
PROVIDERS: PCP Family Medicine; Visit Provider Orthopaedic Surgery
DX: M22.8X9 Other disorders of patella, unspecified knee (principal)
CPT/HCPCS: 99213

== ENCOUNTER → 2025-07-25 11:20 | Outpatient (BNVA) | payer MEDICARE, MEDICAID, SELFPAY ==
[2025-01-24 14:58] VITALS: BP 168/70; BMI 58.5
== END ==
PROVIDERS: PCP Family Medicine; Visit Provider Internal Medicine
DX: J44.9 Chronic obstructive pulmonary disease, unspecified (principal); G47.33 Obstructive sleep apnea (adult) (pediatric); Z99.89 Dependence on other enabling machines and devices; J30.2 Other seasonal allergic rhinitis; E66.01 Morbid (severe) obesity due to excess calories; Z68.44 Body mass index [BMI] 60.0-69.9, adult; Z87.891 Personal history of nicotine dependence; Z87.09 Personal history of other diseases of the respiratory system
CPT/HCPCS: 36415; 82103; 85025; 99214; Q3014

== ENCOUNTER → 2025-08-05 09:11 | Outpatient (BNVA) | payer MEDICARE, MEDICAID, SELFPAY ==
[2025-01-24 14:58] VITALS: BP 168/70; BMI 58.5
== END ==
PROVIDERS: PCP Family Medicine; Visit Provider Specialist
DX: G60.3 Idiopathic progressive neuropathy (principal); G43.711 Chronic migraine without aura, intractable, with status migrainosus; G25.81 Restless legs syndrome; G56.03 Carpal tunnel syndrome, bilateral upper limbs; G56.23 Lesion of ulnar nerve, bilateral upper limbs
CPT/HCPCS: 99213

== ENCOUNTER 2025-08-07 20:00 | Outpatient (CLI) | payer MEDICARE, MEDICAID, SELFPAY ==
[2025-01-24 14:58] VITALS: BP 168/70; BMI 58.5
== END 2025-08-07 20:01 | disposition home or self-care (01) ==
PROVIDERS: PCP Family Medicine; Referring Provider Internal Medicine; Visit Provider Internal Medicine Pulmonary Disease
DX: G47.33 Obstructive sleep apnea (adult) (pediatric) (principal); Z87.09 Personal history of other diseases of the respiratory system
CPT/HCPCS: 95810

== ENCOUNTER → 2025-08-12 14:06 | Outpatient (BNVA) | payer MEDICARE, MEDICAID, SELFPAY ==
[2025-01-24 14:58] VITALS: BP 168/70; BMI 58.5
== END ==
PROVIDERS: PCP Family Medicine; Visit Provider Orthopaedic Surgery
DX: G56.03 Carpal tunnel syndrome, bilateral upper limbs (principal); G56.23 Lesion of ulnar nerve, bilateral upper limbs
CPT/HCPCS: 99214

== ENCOUNTER → 2025-08-26 09:37 | Outpatient (BNVA) | payer MEDICARE, MEDICAID, SELFPAY ==
[2025-01-24 14:58] VITALS: BP 168/70; BMI 58.5
== END ==
PROVIDERS: PCP Family Medicine; Visit Provider Internal Medicine
DX: G47.33 Obstructive sleep apnea (adult) (pediatric) (principal); Z99.89 Dependence on other enabling machines and devices; J44.9 Chronic obstructive pulmonary disease, unspecified; E66.01 Morbid (severe) obesity due to excess calories; Z68.44 Body mass index [BMI] 60.0-69.9, adult; J30.2 Other seasonal allergic rhinitis; Z87.891 Personal history of nicotine dependence
CPT/HCPCS: 99213; Q3014

== ENCOUNTER → 2025-08-29 10:02 | Outpatient (BNVA) | payer MEDICARE, MEDICAID, SELFPAY ==
[2025-01-24 14:58] VITALS: BP 168/70; BMI 58.5
== END ==
PROVIDERS: PCP Family Medicine; Visit Provider Specialist
DX: G43.711 Chronic migraine without aura, intractable, with status migrainosus (principal); G25.81 Restless legs syndrome; R03.0 Elevated blood-pressure reading, without diagnosis of hypertension
CPT/HCPCS: 64615; J0585; J9999

== ENCOUNTER 2025-09-16 | Emergency (ER) | payer MEDICARE, MEDICAID, SELFPAY ==
--- OUTSIDE RECORDS SUMMARY | 2024-03-15 03:00 | XMS_ITS ---
Author Organization [facility] Address [address] [place] [address] Care Team Providers Care Oven Loader Name Role Phone Ruben Curran Primary Care Provider Unavailabl e Migration, Provider Unavailable Unavailable REASON FOR VISIT EMR-Devon Procedures Procedure Date Ordered Date Performed Result Body Sit e JOINT INJECTION 03/15/2024 03/15/2024 N/A Encounters Encounter Location Date Provider Diagnosis Migrated_Facility 0 0 03/15/2024 Provider Migration Morbid (severe) obesity due to excess calories E66.01 ; Other psychoactive substance use, unspecified, uncomplicated F19.90 ; Chronic pain syndrome G89.4 ; Polyosteoarthritis, unspecified M15.9 ; Unilateral primary osteoarthritis, right knee M17.11 ; Other instability, left knee M25.362 ; Pain in right knee M25.561 ; Pain in left knee M25.562 ; Other intervertebral disc degeneration, lumbar region M51.36 ; Radiculopathy, lumbosacral region M54.17 ; Unspecified abnormalities of gait and mobility R26.9 ; Tobacco use Z72.0 and longterm (current) use of opiate analgesic Z79.891 Assessments Encounter Date Diagnosis (ICD Code) Assessment Notes Treatment Notes Treatment Clinical Notes Section Notes 03/15/2024 Morbid (severe) obesity due to excess calories (ICD-10 - E66.01) 03/15/2024 Other psychoactive substance use, unspecified, uncomplicated (ICD-10 - F19.90) 03/15/2024 Chronic pain syndrome (ICD-10 - G89.4) 03/15/2024 Polyosteoarthritis, unspecified (ICD-10 - M15.9) 03/15/2024 Unilateral primary osteoarthritis, right knee (ICD-10 - M17.11) 03/15/2024 Other instability, left knee (ICD-10 - M25.362) 03/15/2024 Pain in right knee (ICD-10 - M25.561) 03/15/2024 Pain in left knee (ICD-10 - M25.562) 03/15/2024 Other intervertebral disc degeneration, lumbar region (ICD-10 - M51.36) 03/15/2024 Radiculopathy, lumbosacral region (ICD-10 - M54.17) 03/15/2024 Unspecified abnormalities of gait and mobility (ICD-10 - R26.9) 03/15/2024 Tobacco use (ICD-10 - Z72.0) 03/15/2024 longterm (current) use of opiate analgesic (ICD-10 - Z79.891) Plan Of Treatment No Information Progress Notes * Laila MCCLAINDOB:[birth year] (44 yo F)Acc No.[id number]:03/15/2024 Patient: Annie roque Laila Provider: Alberto Ray :1980 A ge:43 Y S ex:Female Date:03/15/2024 Address:[address] [place] [address] [id number] Pcp:Ruben Curran Subjective: * Chief Complaints: * E MR-Devon Assessment: * Assessment: 1. M orbid (severe) obesity due to excess calories - E66.01 2 . O ther psychoactive substance use, unspecified, uncomplicated - F19.90 3 . C hronic pain syndrome - G89.4 4 . P olyosteoarthritis, unspecified - M15.9 5 . Unilateral primary osteoarthritis, right knee - M17.11 6 . O ther instability, left knee - M25.362 7 . P ain in right knee - M25.561 8 .?Pain in left knee - M25.562 9 . O ther intervertebral disc degeneration, lumbar region - M51.36 1 0. R adiculopathy, lumbosacral region - M54.17 ?11. U nspecified abnormalities of gait and mobility - R26.9 1 2. T obacco use - Z72.0 1 3. L melvin term (current) use of opiate analgesic - Z79.891 ? Plan: * Treatment: * Electronic signature of Shannon garcía Migration on 09/16/2025 at 12:06 AM EQUIPMENT OPERATOR INTERMODAL YARD Sign off status: Pending * Provider: Alberto perales Migration Date: 0 03/15/2024 Generated for Judie walls/Rose/Ana on: 1 11/16/2024 12:06 AM EQUIPMENT OPERATOR INTERMODAL YARD
--- OUTSIDE RECORDS SUMMARY | 2024-03-29 03:00 | XMS_ITS ---
Author Organization [facility] Address [address] [place] [address] Care Team Providers Care Esters And Emulsifiers Supervisor Name Role Phone Ruben Currna Primary Care Provider Unavailabl e Migration, Provider Unavailable Unavailable REASON FOR VISIT EMR-Devon Vital Signs Height 68.00 in 03/29/2024 Weight 378.00 lbs 03/29/2024 BMI 57 kg/m2 03/29/2024 Height-cm 172.72 cm 03/29/2024 Weight-kg 171.82 kg 03/29/2024 Encounters Encounter Location Date Provider Diagnosis Migrated_Facility 0 0 03/29/2024 Provider Migration Morbid (severe) obesity due to [...] mobility R26.9 ; Tobacco use Z72.0 and [facility] (current) use of opiate analgesic Z79.891 Assessments Encounter Date Diagnosis (ICD Code) Assessment Notes Treatment Notes Treatment Clinical Notes Section Notes 03/29/2024 Morbid (severe) obesity due to excess calories (ICD-10 - E66.01) 03/29/2024 Other psychoactive substance use, unspecified, uncomplicated (ICD-10 - F19.90) 03/29/2024 Chronic pain syndrome (ICD-10 - G89.4) 03/29/2024 Polyosteoarthritis, unspecified (ICD-10 - M15.9) 03/29/2024 Unilateral primary osteoarthritis, right knee (ICD-10 - M17.11) 03/29/2024 Other instability, left knee (ICD-10 - M25.362) 03/29/2024 Pain in right knee (ICD-10 - M25.561) 03/29/2024 Pain in left knee (ICD-10 - M25.562) 03/29/2024 Other intervertebral disc degeneration, lumbar region (ICD-10 - M51.36) 03/29/2024 Radiculopathy, lumbosacral region (ICD-10 - M54.17) 03/29/2024 Unspecified abnormalities of gait and mobility (ICD-10 - R26.9) 03/29/2024 Tobacco use (ICD-10 - Z72.0) 03/29/2024 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 Assessment: * Assessment: 1. M orbid (severe) [...] use of opiate analgesic - Z79.891 ? * Electronic signature of Prov ider Migration on 09/16/2025 at 12:06 AM TILE SHADER Sign off status: Pending * Provider: Alberto perales Migration Date: 0 03/29/2024 Generated for Judie walls/Rose/Tomaitting on: 1 11/16/2024 12:06 AM TILE SHADER
--- OUTSIDE RECORDS SUMMARY | 2024-08-18 03:00 | XMS_ITS ---
Author Organization [facility] Address [address] [place] [address] Care Team Providers Care Warehouse Operator Name Role Phone Ruben Curran Primary Care Provider Unavailabl e Migration, Provider Unavailable Unavailable REASON FOR VISIT [facility] Encounters Encounter Location Date Provider Diagnosis Migrated_Facility 0 0 08/18/2024 Provider Migration Plan Of Treatment Medication Medication Name Sig Start Date Stop Date Notes HYDROcodone-Acetaminop hen 5-325 MG Oral Tablet 1 Tablet every 12 hours PRN. Do not exceed 1 per day. 01/31/2024 03/01/2024 *Reorder from [facility] for eRx and Interaction Alerts* Progress Notes * Laila MCCLAINDOB:[birth year] (44 yo F)Acc No.[id number]:08/18/2024 Patient: Laila POWELL :1980 A ge:43 Y S ex:Female Address:[address] [place] [address] [address], [place], [address] * Refills Stop HYDROcodone-Acetaminophen 5-325 MG Oral Tablet, 1 Tablet every 12 hours PRN. Do not exceed 1 per day. Subjective: * Chief Complaints: * E MR[facility] * * Date:
--- OUTSIDE RECORDS SUMMARY | 2024-08-19 03:00 | XMS_ITS ---
Author Organization [facility] Address [address] [place] [address] Care Team Providers Care Staff Home Therapy Rn Name Role Phone Ruben Curran Primary Care Provider Unavailabl e Migration, Provider Unavailable Unavailable Allergies Allergen (clinical drug ingredient) Drug/Non Drug Allergy documented on EMR Reaction Allergy Type Onset Date Status lamotrigine Lamictal 100 mg tabl et (uncoded) Unknown Allergy Active aspirin Aspirin Unknown Drug Allergy Active citalopram CeleXA Unknown Drug Allergy Active morphine Morphine Sulfate Unknown Drug Allergy Active predniSONE Unknown Drug Allergy Active REASON FOR VISIT EMR-Devon Medications Medication SIG (Take, Route, Frequency, Duration) Notes Start Date End Date Status Anoro Ellipta *Pick strength-f orm from [facility] for eRX* Active Ozempic *Reorder from [facility] for eRx and Interaction Alerts* Active Mirapex *Reorder from [facility] for eRx and Interaction Alerts* Active Albuterol Sulfate *Pick strength -form from [facility] for eRX* Active Aimovig Autoinjector *Reorder fr om [facility] for eRx and Interaction Alerts* Active Abilify *Pick strength-f orm from [facility] for eRX* Active Buspirone *Reorder from [facility] for eRx and Interaction Alerts* Active Metformin *Reorder from [facility] for eRx and Interaction Alerts* Active losartan potassium (bulk) *Reorder from [facility] for eRx and Interaction Alerts* Active Ambien *Pick strength-f orm from [facility] for eRX* Active Effexor XR *Pick strength-f orm from [facility] for eRX* Active Plavix *Pick strength-f orm from [facility] for eRX* Active pantoprazole *Reorder from [facility] for eRx and Interaction Alerts* Active Metoprolol Succinate *Pick stren gth-form from [facility] for eRX* Active Social History Social History Additional Details Category Social Info Options Details Migrated Social History Migrated Social History Currently on disability? - Yes, Drug or substance abuse? - No, Involved in any legal proceedings or lawsuits? - No, Marital Status - single, Nonprescription drug use? - No, Participation in detoxification or rehabilitation - No, Smoking - 1/2 PPD, Working currently? - No Encounters Encounter Location Date Provider Diagnosis Migrated_Facility 0 0 08/19/2024 Provider Migration Plan Of Treatment No Information Progress Notes * Laila MCCLAINDOB:10/[birth year] (44 yo F)Acc No.[id number]:08/19/2024 Patient: Laila POWELL :1980 A ge:43 Y S ex:Female Address:[address] [place] [address] [address], [place] [address] Subjective: * Chief Complaints: * E MR-Devon * Surgical History: Achilles tendon repair Bladder surgery Hysterectomy Knee Surgery Shoulder surgery * Family History: M igrated Family History: : Cancer, D iabetes, H eart disease, p sychiatric problems.? * Social History: M igrated Social History: M igrated Social History: Currently on disability? - Yes, D rug or substance abuse? - No, I nvolved in any legal proceedings or lawsuits? - No, M arital Status - single, N onprescription drug use? - No, P articipation in detoxification or rehabilitation - No, S moking - 1/2 PPD, W orking currently? - No. * Medications: T akingAnoro Ellipta , Notes to Pharmacist: *Pick strength-form from [facility] for eRX*Ozempic , Notes to Pharmacist: *Reorder from [facility] for eRx and Interaction Alerts*Plavix , Notes to Pharmacist: *Pick strength-form from [facility] for eRX*Aimovig Autoinjector , Notes to Pharmacist: *Reorder from [facility] for eRx and Interaction Alerts*Effexor XR , Notes to Pharmacist: *Pick strength-form from [facility] for eRX*Metformin , Notes to Pharmacist: *Reorder from [facility] for eRx and Interaction Alerts*Buspirone , Notes to Pharmacist: *Reorder from [facility] for eRx and Interaction Alerts*losartan potassium (bulk) , Notes to Pharmacist: *Reorder from [facility] for eRx and Interaction Alerts*pantoprazole , Notes to Pharmacist: *Reorder from [facility] for eRx and Interaction Alerts*Abilify , Notes to Pharmacist: *Pick strength-form from [facility] for eRX*Albuterol Sulfate , Notes to Pharmacist: *Pick strength-form from [facility] for eRX*Metoprolol Succinate , Notes to Pharmacist: *Pick strength-form from [facility] for eRX*Mirapex , Notes to Pharmacist: *Reorder from [facility] for eRx and Interaction Alerts*Ambien , Notes to Pharmacist: *Pick strength-form from [facility] for eRX*Taking Anoro Ellipta , Notes to Pharmacist: *Pick strength-form from [facility] for eRX*Taking Ozempic , Notes to Pharmacist: *Reorder from [facility] for eRx and Interaction Alerts*Taking Plavix , Notes to Pharmacist: *Pick strength-form from [facility] for eRX*Taking Aimovig Autoinjector , Notes to Pharmacist: *Reorder from [facility] for eRx and Interaction Alerts*Taking Effexor XR , Notes to Pharmacist: *Pick strength-form from [facility] for eRX*Taking Metformin , Notes to Pharmacist: *Reorder from [facility] for eRx and Interaction Alerts*Taking Buspirone , Notes to Pharmacist: *Reorder from [facility] for eRx and Interaction Alerts*Taking losartan potassium (bulk) , Notes to Pharmacist: *Reorder from [facility] for eRx and Interaction Alerts*Taking pantoprazole , Notes to Pharmacist: *Reorder from [facility] for eRx and Interaction Alerts*Taking Abilify , Notes to Pharmacist: *Pick strength-form from [facility] for eRX*Taking Albuterol Sulfate , Notes to Pharmacist: *Pick strength-form from [facility] for eRX*Taking Metoprolol Succinate , Notes to Pharmacist: *Pick strength-form from [facility] for eRX*Taking Mirapex , Notes to Pharmacist: *Reorder from [facility] for eRx and Interaction Alerts*Taking Ambien , Notes to Pharmacist: *Pick strength-form from [facility] for eRX* * Allergies: M orphine Sulfate: AllergyCeleXA: AllergyAspirin: AllergyLamictal 100 mg tablet: AllergypredniSONE: Allergy * * Date:
--- OUTSIDE RECORDS SUMMARY | 2024-09-12 08:20 | XMS_ITS ---
Author Organization [facility] Address [address] [place] [address] Care Team Providers Care Development Disability Specialist Name Role Phone Ruben Curran Primary Care Provider Medhat e Ruben Curran Unavailable [phone] Allergies Allergen (clinical drug ingredient) Drug/Non Drug Allergy documented on EMR Reaction Allergy Type Onset Date Status lamotrigine Lamictal 100 mg tabl et (uncoded) Unknown Allergy Active aspirin Aspirin Unknown Drug Allergy Active citalopram CeleXA Unknown Drug Allergy Active morphine Morphine Sulfate Unknown Drug Allergy Active predniSONE Unknown Drug Allergy Active REASON FOR VISIT 2 mo RK Social History Social History Additional Details Category Social Info Options Details Migrated Social History Migrated Social History Currently on disability? - Yes, Drug or substance abuse? - No, Involved in any legal proceedings or lawsuits? - No, Marital Status - single, Nonprescription drug use? - No, Participation in detoxification or rehabilitation - No, Smoking - 1/2 PPD, Working currently? - No Problems Problem Type SNOMED Code ICD Code Onset Dates Problem Status W/U Status Risk Notes Problem Lumbosacral radiculopathy (5252523) Radiculopathy, lumbosacral region (M54.17) Active confirmed Problem Arthropathy of right knee joint (disorder) (580885973) Arthropathy of right knee (M17.11) Active confirmed Problem Abnormal gait (21500523) Abnormality of gait and mobility (R26.9) Active confirmed Problem Morbid obesity (494547684) Morbid obesity (E66.01) Active confirmed Problem Chronic pain syndrome (274148535) Chronic pain syndrome (G89.4) Active confirmed Encounters Encounter Location Date Provider Diagnosis [facility] [place] [address] [place] [phone] 09/12/2024 Ruben Curran Chronic pain syndrom e G89.4 ; Pain in left knee M25.562 ; Pain in right knee M25.561 ; Radiculopathy, lumbosacral region M54.17 ; Arthropathy of right knee M17.11 ; Illicit drug use F19.90 ; Abnormality of gait and mobility R26.9 ; Tobacco abuse Z72.0 ; Degeneration of intervertebral disc of lumbar region with discogenic back pain M51.360 ; halfway (current) use of opiate analgesic Z79.891 ; Polyosteoarthritis, unspecified M15.9 ; Morbid obesity E66.01 and Instability of left knee joint M25.362 Assessments Encounter Date Diagnosis (ICD Code) Assessment Notes Treatment Notes Treatment Clinical Notes Section Notes 09/12/2024 Chronic pain syndrome (ICD-10 - G89.4) 09/12/2024 Pain in left knee (ICD-10 - M25.562) 09/12/2024 Pain in right knee (ICD-10 - M25.561) 09/12/2024 Radiculopathy, lumbosacral region (ICD-10 - M54.17) 09/12/2024 Arthropathy of right knee (ICD-10 - M17.11) 09/12/2024 Illicit drug use (ICD-10 - F19.90) 09/12/2024 Abnormality of gait and mobility (ICD-10 - R26.9) 09/12/2024 Tobacco abuse (ICD-10 - Z72.0) 09/12/2024 Degeneration of intervertebral disc of lumbar region with discogenic back pain (ICD-10 - M51.360) 09/12/2024 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 - Z79.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) 09/12/2024 Polyosteoarthritis, unspecified (ICD-10 - M15.9) 09/12/2024 Morbid obesity (ICD-10 - E66.01) 09/12/2024 Instability of left knee joint (ICD-10 - M25.362) Plan Of Treatment No Information History and Physical Notes * HPI (History of Present Illness) Category Sub-Category Detail Notes Category Not es Pain Details Pain Location ___ Quality ___ Severity of pain at its worst ___ Severity of pain at its best ___ Severity of average pain ___ Severity of pain right now ___ Severity of pain on medication ___ When did you last take your pain medicin e ___ Medication Details Do you have a lock b ox or safe place for medication away from minors and/or others? Yes Do you have any leftover pain medication building up at your house? No Do you understand that pain medication c an be addicting and can cause overdose? Yes Do you feel you can REDUCE the amount of medication you take today? No Opioid Assessment Tools COMM (Current Opioid Misuse Me asure) ___ Examination Category Sub-Category Detail Notes Category Not es General Examination Constitutional: Patient appears to be appropriate looking for stated age, morbidly obese. Patient is awake, alert and oriented to person, place and time with recent/ remote memory intact. , in no acute distress. Respiratory: Visual Inspection: breathing equal bilaterally, trachea midline. HEENT: Atraumatic, Normocephalic. Pupils grossly normal on inspection. Cardiovascular: Cardiac rhythm is regular. Cervical Spine: Cervical Spine is grossly stable, supple and normal curvature noted. Palpation Cervical Spine: bilateral palpation of cervical paraspinals was painful. Cervical ROM: generalized reduced ROM with pain at end points Spurlings test is negative bilaterally. Strength/ tone : normal Thoracic Spine: Generalized tenderness of the paraspinals Lumbar Spine: Inspection of the lumbar spine reveals normal lordosis with no obvious scoliosis or asymmetry noted. Range of Motion: Greatly reduced ROM in all directions. Hyperextension at lumbar spine reproduced lower back pain. Bilateral facet loading maneuvers (lateral flexion/extension/bending) reproduced lower back pain. Bilateral lateral rotation also causes some pain. Anterior lumbar flexion causes pain. Pain during lumbar extension was observed. Left lateral flexion causes pain. Right lateral flexion causes pain. Joints- Hips/ SI Joint: SI Joint Palpation : Restriction of hip ROM b/l with some pain B/L Knees: Arthritic appearance, no obvious edema. + pain on ROM, which is ~0-90, + crepitus. + joint line tenderness, L>R Neurology - Mental Status: Mood and affect are grossly normal. Neurology - Coordination: Slow antalgic gait Neurology - Straight Leg Raising: Right: 60 degrees and negative. Left: 60 degrees and negative. Neurology - Motor Strength: Left UE strength - Flexors: 4+/5. Right UE strength - Flexors: 4+/5. Left UE strength - Extensors: 4+/5. Right UE strength - Extensors: 4+/5. Left UE Tone: Normal. Right UE Tone: Normal. Left LE strength - Flexors: 4+/5. Right LE strength - Flexors: 4+/5. Left LE strength - Extensors: 4+/5. Right LE strength - Extensors: 4+/5. Left LE Tone: Normal. Right LE Tone: Normal. Neurology - Sensation: various paresthesias reported with decreased sensation to light touch in a stocking distribution, + Right L4-5 dysesthesias Neurology - Deep Tendon Reflexes: Left biceps (DTR): 1. Right biceps (DTR): 1. Left triceps (DTR): 1. Right triceps (DTR): 1. Left brachioradialis (DTR): 1. Right brachioradialis (DTR): 1. Left patellar (DTR): 0. Right patellar (DTR): 0. Left achilles (DTR): 0. Right achilles (DTR): 0. Skin: Scars : no obvious scars present near painful areas Inspection: no obvious bruising, rash, ulcerations or discolorations noted. Progress Notes * Laila MCCLAINDOB:[birth year] (44 yo F)Acc No.[id number]:09/12/2024 Progress Notes Patient: Laila Woods Provider: Sofi Curran D.O. :1980 A ge:43 Y S ex:Female Date:09/12/2024 Address:[address] [place] [address] [address] [place], [place] [id number] Pcp:Ruben Curran Subjective: * Chief Complaints: * 2 mo RK * HPI: P ain Details: Pain Location _ __. Quality _ __. Severity of pain at its worst _ __. Severity of pain at its best _ __. Severity of pain on medication _ __. Severity of average pain _ __. Severity of pain right now _ __. When did you last take your pain medicine _ __. M edication Details: Do you have a lock box or safe place for medication away from minors and/or others? Y es. Do you have any leftover pain medication building up at your house? N o. Do you understand that pain medication can be addicting and can cause overdose? Y es. Do you feel you can REDUCE the amount of medication you take today? N o. O pioid Assessment Tools: COMM (Current Opioid Misuse Measure) _ __. * ROS: G eneral - Multi System: Constitutional D enies, f ever, recent weight gain, recent weight loss, fatigue. R espiratory D enies, wheezing, shortness of breath, cough, snoring. G astrointestinal D enies, nausea, vomiting, constipation, abdominal pain. P sychiatric D enies, , anxiety, depression, panic attacks, suicidal thoughts. * Surgical History: Achilles tendon repair Bladder [...] PPD, W orking currently? - No. * Allergies: L amictal 100 mg tablet: AllergyAspirin: AllergyCeleXA: AllergyMorphine Sulfate: AllergypredniSONE: Allergy Objective: * Examination: G eneral Examination: C onstitutional: Patient appears to be appropriate looking for stated age, morbidly obese. Patient is awake, alert and oriented to person, place and time with recent/ remote memory intact. , in no acute distress. Respiratory: Visual Inspection: breathing equal bilaterally, trachea midline. HEENT: Atraumatic, Normocephalic. Pupils grossly normal on inspection. Cardiovascular: Cardiac rhythm is regular. Cervical Spine: Cervical Spine is grossly stable, supple and normal curvature noted. Palpation Cervical Spine: bilateral palpation of cervical paraspinals was painful. Cervical ROM: generalized reduced ROM with pain at end points Spurlings test is negative bilaterally. Strength/ tone : normal Thoracic Spine: Generalized tenderness of the paraspinals Lumbar Spine: Inspection of the lumbar spine reveals normal lordosis with no obvious scoliosis or asymmetry noted. Range of Motion: Greatly reduced ROM in all directions. Hyperextension at lumbar spine reproduced lower back pain. Bilateral facet loading maneuvers (lateral flexion/extension/bending) reproduced lower back pain. Bilateral lateral rotation also causes some pain. Anterior lumbar flexion causes pain. Pain during lumbar extension was observed. Left lateral flexion causes pain. Right lateral flexion causes pain. Joints- Hips/ SI Joint: SI Joint Palpation : Restriction of hip ROM b/l with some pain B/L Knees: Arthritic appearance, no obvious edema. + pain on ROM, which is ~0- 90, + crepitus. + joint line tenderness, L>R Neurology - Mental Status: Mood and affect are grossly normal. Neurology - Coordination: Slow antalgic gait Neurology - Straight Leg Raising: Right: 60 degrees and negative. Left: 60 degrees and negative. Neurology - Motor Strength: Left UE strength - Flexors: 4+/5. Right UE strength - Flexors: 4+/5. Left UE strength - Extensors: 4+/5. Right UE strength - Extensors: 4+/5. Left UE Tone: Normal. Right UE Tone: Normal. Left LE strength - Flexors: 4+/5. Right LE strength - Flexors: 4+/5. Left LE strength - Extensors: 4+/5. Right LE strength - Extensors: 4+/5. Left LE Tone: Normal. Right LE Tone: Normal. Neurology - Sensation: various paresthesias reported with decreased sensation to light touch in a stocking distribution, + Right L4-5 dysesthesias Neurology - Deep Tendon Reflexes: Left biceps (DTR): 1. Right biceps (DTR): 1. Left triceps (DTR): 1. Right triceps (DTR): 1. Left brachioradialis (DTR): 1. Right brachioradialis (DTR): 1. Left patellar (DTR): 0. Right patellar (DTR): 0. Left achilles (DTR): 0. Right achilles (DTR): 0. Skin: Scars : no obvious scars present near painful areas Inspection: no obvious bruising, rash, ulcerations or discolorations noted. Assessment: * Assessment: 1. C hronic pain syndrome - G89.4 (Primary) 2 . P ain in left knee - M25.562 3 . P ain in right knee - M25.561 4 . R adiculopathy, lumbosacral region - M54.17 5 . A rthropathy of right knee - M17.11 6 . I llicit drug use - F19.90 7 . A bnormality of gait and mobility - R26.9? 8. T obacco abuse - Z72.0 9 . D egeneration of intervertebral disc of lumbar region with discogenic back pain - M51.360 1 0. L melvin term (current) use of opiate analgesic - Z79.891 1 1. P olyosteoarthritis, unspecified - M15.9 1 2. M orbid obesity - E66.01 1 3. I nstability of left knee joint - M25.362 Care Plan Details* * Electronic signature of Ruben Curran DO on 09/16/2025 at 12:07 AM BRANCH RENTAL MANAGER Sign off status: Pending * Provider: Sofi Curran D.O. Date: 11/12/2023 Generated for Judie walls/Rose/Tomaitting on: 11/16/2024 12:07 AM BRANCH RENTAL MANAGER
--- OUTSIDE RECORDS SUMMARY | 2024-10-08 08:15 | XMS_ITS ---
Author Organization [facility] Address [address] [place] [address] Care Team Providers Care Sub Arc Operator Name Role Phone Ruben Curran Primary Care Provider Johan Damon Unavailable [phone] REASON FOR VISIT rescheduled Medications Medication SIG (Take, Route, Frequency, Duration) Notes Start Date End Date Status Buspirone *Reorder from Medispan for eRx and Interaction Alerts* Active pantoprazole *Reorder from Medispan for eRx and Interaction Alerts* Active losartan potassium (bulk) *Reorder from Medispan for eRx and Interaction Alerts* Active Abilify *Pick strength-f orm from Medispan for eRX* Active Albuterol Sulfate *Pick strength -form from Medispan for eRX* Active Ozempic *Reorder from Medispan for eRx and Interaction Alerts* Active Aimovig Autoinjector *Reorder fr om Medispan for eRx and Interaction Alerts* Active Plavix *Pick strength-f orm from Medispan for eRX* Active Metformin *Reorder from Medispan for eRx and Interaction Alerts* Active Effexor XR *Pick strength-f orm from Medispan for eRX* Active Ambien *Pick strength-f orm from Medispan for eRX* Active Anoro Ellipta *Pick strength-f orm from Medispan for eRX* Active Metoprolol Succinate *Pick stren gth-form from Medispan for eRX* Active Mirapex *Reorder from Medispan for eRx and Interaction Alerts* Active Encounters Encounter Location Date Provider Diagnosis [facility] [place] [address] [place] [address] 10/08/2024 Johan Bell Plan Of Treatment No Information Progress Notes * Laila MCCLAINDOB:[birth year] (44 yo F)Acc No.[id number]:10/08/2024 Progress Notes Patient: Laila Woods Provider: Dao Bell PA-C :1980 A ge:43 Y S ex:Female Date:10/08/2024 Address:[address] [place] [address] [address], [place], [id number] Pcp:Ruben Curran Subjective: * Chief Complaints: * R escheduled * Medications: T akingAbilify , Notes to Pharmacist: *Pick strength-form from Medispan for eRX*Aimovig Autoinjector , Notes to Pharmacist: *Reorder from Medispan for eRx and Interaction Alerts*Albuterol Sulfate , Notes to Pharmacist: *Pick strength-form from Medispan for eRX*Ambien , Notes to Pharmacist: *Pick strength-form from Medispan for eRX*Anoro Ellipta , Notes to Pharmacist: *Pick strength-form from Medispan for eRX*Buspirone , Notes to Pharmacist: *Reorder from Medispan for eRx and Interaction Alerts*Effexor XR , Notes to Pharmacist: *Pick strength-form from Medispan for eRX*losartan potassium (bulk) , Notes to Pharmacist: *Reorder from Medispan for eRx and Interaction Alerts*Metformin , Notes to Pharmacist: *Reorder from Medispan for eRx and Interaction Alerts*Metoprolol Succinate , Notes to Pharmacist: *Pick strength- form from Medispan for eRX*Mirapex , Notes to Pharmacist: *Reorder from Medispan for eRx and Interaction Alerts*Ozempic , Notes to Pharmacist: *Reorder from Medispan for eRx and Interaction Alerts*pantoprazole , Notes to Pharmacist: *Reorder from Medispan for eRx and Interaction Alerts*Plavix , Notes to Pharmacist: *Pick strength-form from Medispan for eRX*Taking Abilify , Notes to Pharmacist: *Pick strength-form from Medispan for eRX*Taking Aimovig Autoinjector , Notes to Pharmacist: *Reorder from Medispan for eRx and Interaction Alerts*Taking Albuterol Sulfate , Notes to Pharmacist: *Pick strength-form from Medispan for eRX*Taking Ambien , Notes to Pharmacist: *Pick strength-form from Medispan for eRX*Taking Anoro Ellipta , Notes to Pharmacist: *Pick strength-form from Medispan for eRX*Taking Buspirone , Notes to Pharmacist: *Reorder from Medispan for eRx and Interaction Alerts*Taking Effexor XR , Notes to Pharmacist: *Pick strength-form from Medispan for eRX*Taking losartan potassium (bulk) , Notes to Pharmacist: *Reorder from Medispan for eRx and Interaction Alerts*Taking Metformin , Notes to Pharmacist: *Reorder from Medispan for eRx and Interaction Alerts*Taking Metoprolol Succinate , Notes to Pharmacist: *Pick strength-form from Medispan for eRX*Taking Mirapex , Notes to Pharmacist: *Reorder from Medispan for eRx and Interaction Alerts*Taking Ozempic , Notes to Pharmacist: *Reorder from Medispan for eRx and Interaction Alerts*Taking pantoprazole , Notes to Pharmacist: *Reorder from Medispan for eRx and Interaction Alerts*Taking Plavix , Notes to Pharmacist: *Pick strength-form from Medispan for eRX* Care Plan Details* * Electronic signature of PENNIE Sheets on 09/16/2025 at 12:06 AM SENIOR PHARMACY TECHNICIAN Sign off status: Pending * Provider: Dao Bell PA-C Date: 12/09/2023 Generated for Judie walls/Rose/Sushilasmantonio on: 11/16/2024 12:06 AM SENIOR PHARMACY TECHNICIAN
[2025-01-24 14:58] VITALS: BP 168/70; BMI 58.5
--- OUTSIDE RECORDS SUMMARY | 2025-09-12 09:00 | XMS_ITS | Encounter Summary ---
Author Organization [facility] Address [address] [place] [address] Care Team Providers Care Leader Writer Name Role Phone Unavailable Primary Care Provider Unavailabl e Reason for Visit * Reason Comments Obesity Anxiety * Behavioral Health - Outpatient (Routine) - Authorized Specialty Diagnoses / Procedures Referred By Meghan hidalgo Referred To Contact Multi Specialty Diagnoses Morbid obesity with BMI of 60.0-69.9, adult ([facility]) Gastroesophageal reflux disease, unspecified whether esophagitis present Benign essential HTN Type 2 diabetes mellitus without complication, unspecified whether ferry terminal agent insulin use ELO (obstructive sleep apnea) Bipolar affective disorder, remission status unspecified ([facility]) Other chronic pain Procedures [place] OFFICE/OUTPATIENT ESTABLISHED MOD MDM 30 MIN [place] OFFICE/OUTPATIENT NEW MODERATE MDM 45 MINUTES [place] PSYCHOLOGICAL TST EVAL SVC PHYS/QHP FIRST HOUR [place] PSYCHOLOGICAL TST EVAL SVC PHYS/QHP EA ADDL HOUR AZ PSYL/NRPSYCL TST PHYS/QHP 2+ TST 1ST 30 MIN [place] PSYCL/NRPSYCL TST PHYS/QHP 2+ TST EA ADDL 30 MIN [place] PSYCHIATRIC DIAGNOSTIC EVALUATION Maximo Gonsales MD [address] [facility] [address] [place] [address] Phone: tel: fax: Laila Thompson PsyD [address] [place] [address] Phone: tel: fax: Referral ID Status Reason Start Date Expiration Date V isits Requested Visits Authorized [id number] Authorized 07/02/2025 07/02/2026 12 12 Encounter Details Date Type Department Care Team (Latest Contact Info) Description 09/12/2025 9:00 AM HEAD COACH Video Visit [facility] Spine Multidisciplinary Pain [address] [place] [address] Laila Thompson PsyD [address] [place] [address] Bipolar affective disorder, remission status unspecified ([facility]) (Primary Dx); Psychological factors affecting morbid obesity ([facility]); Morbid obesity with BMI of 60.0-69.9, adult ([facility]) Social History Tobacco Use Types Packs/Day Years Used Date Smoking Tobacco: Former Cigarettes 0 Q uit: 06/07/2025 Smokeless Tobacco: Never Alcohol Use Standard Drinks/Week Comments Yes 0 (1 standard drink = 0.6 oz pur e alcohol) special occassions Comments Unknown Sex and Gender Information Value Date Recorded Sex Assigned at Not on file Legal Sex Female 5:09 AM HEAD COACH Gender Identity Not on file Sexual Orientation Not on file documented as of this encounter Plan of Treatment Upcoming Encounters Date Type Department Care Team (Late st Contact Info) Description 09/26/2025 3:00 PM HEAD COACH Video Visit [facility] Spine Multidisciplinary Pain [address] [place] [address] Laila Thompson PsyD [address] [place] [address] 10/10/2025 8:00 AM HEAD COACH Video Visit [facility] Spine Multidisciplinary Pain [address] [place] [address] Laila Thompson PsyD [address] [place] [address] 10/21/2025 8:00 AM HEAD COACH Video Visit [facility] Spine Multidisciplinary Pain [address] [place] [address] Laila Thompson PsyD [address] [place] [id number] documented as of this encounter Visit Diagnoses Diagnosis Bipolar affective disorder, remission status unspecified (CMS/HCC)- Primary Psychological factors affecting morbid obesity (CMS/HCC) Psychic factors associated with diseases classified elsewhere Morbid obesity with BMI of 60.0-69.9, adult (CMS/HCC) documented in this encounter
--- OUTSIDE RECORDS SUMMARY | 2025-09-12 11:08 | XMS_ITS | Encounter Summary ---
Author Organization [facility] Address 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 ([facility]) ELO treated with BiPAP Chronic bronchitis, unspecified chronic bronchitis type ([facility]) Bipolar affective disorder, remission status unspecified ([facility]) Procedures [place] OFFICE/OUTPATIENT ESTABLISHED MOD MDM 30 MIN [place] OFFICE/OUTPATIENT NEW MODERATE MDM 45 MINUTES Maximo Gonsales MD [address] [place] [phone] Phone: tel: fax: [facility] [address] [place] [address] Phone: tel: fax: Referral ID Status Reason Start Date Expiration Date Visits Requested Visits Authorized [id number] Authorized Performing Department to Schedule 08/15/2026 6 6 Encounter Details Date Type Department Care Team (Latest Contact Info) Description 09/12/2025 11:08 AM INFORMATICS MANAGER - 09/12/2025 11:59 PM INFORMATICS MANAGER Hospital Encounter [facility] [address] [place] [address] Uri William MD [address] [facility] [address] [place] [phone] Orville Bustillo Discharge Disposition: Home or Self Care Social History Tobacco Use Types Packs/Day Years Used Date Smoking Tobacco: Former Cigarettes 0 Q uit: 06/07/2025 Smokeless Tobacco: Never Alcohol Use Standard Drinks/Week Comments Yes 0 (1 standard drink = 0.6 oz pur e alcohol) special occassions Comments Unknown Sex and Gender Information Value Date Recorded Sex Assigned at Not on file Legal Sex Female 5:09 AM INFORMATICS MANAGER Gender Identity Not on file Sexual Orientation Not on file documented as of this encounter Last Filed Vital Signs Vital Sign Reading Time Taken Comments Blood Pressure - - Pulse - - Temperature - - Respiratory Rate - - Oxygen Saturation - - Inhaled Oxygen Concentration - - Weight 182.8 kg (403 lb) 09/12/2025 11:00 AM INFORMATICS MANAGER Height - - Body Mass Index 61.28 07/04/2025 10:33 AM CDT documented in this encounter Medications at Time of Discharge albuterol sulfate HFA 90 mcg/actuation aerosol inhaler inhale 1-2 puffs BY MOUTH EVERY 4 HOURS NEEDED albuterol (PROVENTIL,VENTOL IN) 2.5 mg /3 mL (0.083 %) Solution for Nebulization use 1 vial in nebulizer FOUR TIMES DAILY ARIPiprazole (ABILIFY) 10 mg tablet Take 10 mg by mouth daily. atorvastatin (LIPITOR) 20 mg tablet TAKE 1 TABLET BY MOUTH EVERY DAY FOR ONE MONTH azelastine (ASTELIN) 137 mcg/actuation nasal spray USE 2 SPRAYS IN EACH NOSTRIL TWICE DAILY OneTouch Ultra Test Strip use to test 3 times daily buPROPion HCL (WELLBUTRIN XL) 300 mg Extended Release 24 hour tablet Take 300 mg by mouth daily. busPIRone (BUSPAR) 7.5 mg Tablet Take 7.5 mg by mouth 2 times daily. gabapentin (NEURONTIN) 100 mg capsule Take 100 mg by mouth 3 times daily. insulin degludec (TRESIBA) 100 unit/mL pen syringe INJECT 180 UNITS (1.6ML) SUBCUTANEOUSLY EVERY DAY levocetirizine (XYZAL) 5 mg tablet Take 5 mg by mouth 2 times daily. losartan (COZAAR) 25 mg tablet Take 25 mg by mouth daily. metoprolol succinate (TOPROL XL) 100 mg Extended Release 24 hour tablet Take 100 mg by mouth 2 times daily. montelukast (SINGULAIR) 10 mg tablet Take 10 mg by mouth daily. nateglinide 60 mg Tablet TAKE 1 TABLET BY MOUTH THREE TIMES DAILY before meals; FOR diabetes take ONLY when you eat a meal UP TO THREE TIMES DAILY, no more often THAN EVERY 4 HOURS 5 pantoprazole (PROTONIX) 40 mg Tablet, Delayed Release (E.C.) Take 40 mg by mouth daily. pramipexole (MIRAPEX) 0.5 mg tablet Take 0.5 mg by mouth 2 times daily. Nurtec ODT 75 mg Tablet, Rapid Dissolve DISSOLVE ONE TABLET BY MOUTH once daily NEEDED for migraine Mounjaro 15 mg/0.5 mL Pen Injector inject 15mg SUBCUTANEOUSLY EVERY 7 DAYS FOR ONE MONTH 5 traMADol (ULTRAM) 50 mg tablet Take 50 mg by mouth every 6 hours as needed. venlafaxine (EFFEXOR XR) 75 mg Extended Release 24 hour capsule TAKE 3 CAPSULES BY MOUTH EVERY MORNING DULoxetine (CYMBALTA) 60 mg Capsule, Delayed Release(E.C.) Take 60 mg by mouth daily. 7 rOPINIRole (REQUIP) 2 mg Tablet Take 2 mg by mouth 3 times daily. 7 documented as of this encounter Progress Notes * Orville Bustillo - 09/12/2025 12:45 PM CST BARIATRIC SURGERY PREOPERATIVE EXERCISE CONSULT [phone] Planned Procedure: Gastric bypass Patient remarks: Viridiana attended today's pre-bariatric exercise follow up after attending the bariatric exercise class. Presents today with an exercise log. Pt has been exercising, as noted below. Weight goal post surgery: 250 lbs Home equipment: none, access to gym Current exercise: walking 7 days/week for 15 to 30 minutes Physical limitations: lower back and bilateral knee pain (planning onknee placement) Relevant medical history: No past medical history on file. Measurements: Ht: 68 inches Wt: 403 lbs Initial Wt: 403 lbs Wt Change: -0 lbs Body Fat: 57.3% Fat Wt: 231 lbs Lean Wt: 172 lbs BMI: 61.3 L322 Total body water: 35.3 % Waist Circumference: 66.5 inches Age-Predicted Exercise Heart Rate range: 122-148 beats/min Resting Oxygen: 97% Resting Heart Rate: 94 Assessment: Stressed the importance of exercise in minimizing muscle loss post surgery. Provided and reviewed Weight Loss Surgery: [place] [facility] handout. Reviewed exercise progression post surgery. Answered and addressed all questions and concerns. Goals / Plan: 1. Aerobic exercise 5-7 days/week for 15-30 minutes. 2. Explore resistance training 3. Begin walking intervals immediately following surgery and gradually increase time/distance as able 4. Follow restrictions immediately after surgery until cleared to resume 5. Follow up 2-3 months post surgery 6. Reach out if you have any questions or concerns. Plan: From this exercise assessment, there is no contraindication to proceed with the bariatric program. Thank you for this referral. RMATICS MANAGER documented in this encounter Plan of Treatment Upcoming Encounters Date Type Department Care Team (Late st Contact Info) Description 09/26/2025 3:00 PM INFORMATICS MANAGER Video Visit [facility] Spine Multidisciplinary Pain [address] [place] [address] Laila Thompson PsyD [address] [place] [address] 10/10/2025 8:00 AM INFORMATICS MANAGER Video Visit [facility] Spine Multidisciplinary Pain [address] [place] [address] Laila Thompson PsyD [address] [place] [address] 10/21/2025 8:00 AM INFORMATICS MANAGER Video Visit [facility] Spine Multidisciplinary Pain [address] [place] [address] Laila Thompson PsyD [address] [address] documented as of this encounter Visit Diagnoses Not on filedocumented in this encounter
--- OUTSIDE RECORDS SUMMARY | 2025-09-12 11:09 | XMS_ITS | Encounter Summary ---
Author Organization [facility] Address [address] [place] [address] Care Team Providers Care [employer] Barrel Assembly Cleaner Name Role Phone Unavailable Primary Care Provider Unavailabl e Reason for Visit * Eval and Treat (Routine) - Authorized Specialty Diagnoses / Procedures Referred By Meghan t Referred To Contact Multi Specialty Diagnoses Morbid obesity with BMI of 60.0-69.9, adult ([facility]) Benign essential HTN Gastroesophageal reflux disease, unspecified whether esophagitis present Type 2 diabetes mellitus without complications, unspecified whether terminal make up operator insulin use ([facility]) ELO treated with BiPAP Chronic bronchitis, unspecified chronic bronchitis type ([facility]) Bipolar affective disorder, remission status unspecified ([facility]) Procedures LA MEDICAL NUTRITION ASSMT&IVNTJ INDIV EACH 15 IL LA MEDICAL NUTRITION RE-ASSMT&IVNTJ INDIV EA 15 M LA MEDICAL NUTRITION THERAPY GRP2/ INDIV EA 30 IL LA MNT SUBS TX FOR CHANGE DX LA GROUP MNT 2 OR MORE 30 MINS Maximo Gonsales MD [address] [place] [phone] Phone: tel: fax: [facility] [address] [place] [address] Phone: tel: fax: Referral ID Status Reason Start Date Expiration Date Visits Requested Visits Authorized [id number] Authorized Performing Department to Schedule 08/15/2026 6 6 Encounter Details Date Type Department Care Team (Latest Contact Info) Description 09/12/2025 11:09 AM FIELD SCOUT - 09/12/2025 11:59 PM FIELD SCOUT Hospital Encounter [facility] [address] [place] [address] Uri William MD [address] [facility] [address] [place] [address] Steven Turcios, RD Discharge Disposition: Home or Self Care Social [...] on file Legal Sex Female 5:09 AM FIELD SCOUT Gender Identity Not on file Sexual Orientation Not on file documented as of this encounter Medications at Time of Discharge [...] as of this encounter Progress Notes * Steven Turcios, RD - 09/12/2025 1:15 PM CST Bariatric Medical Nutrition Therapy follow-up (pre-RYGB) Past Patient Goals: - Follow 70-95 gram protein diet- meeting most days - Keep a food log of foods, drinks, portion sizes, time, and protein and bring to follow-up- meeting - Include fruits, vegetables, whole grains, lean protein, and dairy to have a well-balanced meal plan prior to surgery- progressing - Limit or eliminate simple sugars and high fat foods (less than 90 g total fat) prior to surgery- eating some high fat foods - Begin the day with breakfast. Eat 3 meals and 1-3 snacks per day- eating about 4 times/day - Choose only water and sugar-free beverages, drink 48-64 oz non-carbonated, decaffeinated fluids daily.- meeting - Limit caffeine- meeting - Eliminate alcohol- meeting Nutrition Behaviors: - Practice taking small bites/sips, and practice not drinking with meals- practicing - Chew foods to applesauce consistency (30 times)- practicing - Practice eating slowly (20-30 minutes to finish a meal)- practicing Patient remarks: Pt returned for nutrition follow-up after attending pre-bariatric nutrition class. Laila has been meeting her protein goals and maintaining consistent hydration. She continues to work on improvingmeal balance with increased vegetable intake and lean protein choices. She demonstrates good bariatric eating habits. Food Intake Recall (24 hour): Breakfast: texas toast and 2 eggs OR nutrigrain bar Lunch: chicken and rice OR protein shake Dinner: stuffed zaldivar peppers OR pizza and carrots Snacks: french yogurt and peaches, applesauce Beverages: Water 72 oz Food allergies or intolerances: NKFA Supplements: None Medical and surgical history, allergies, and medications reviewed with patient and updated as indicated. Learning needs assessment previously completed and reviewed. Measurements and medical history: ht: 68 wt: 403 lbs Previous Weight: 403 lbs (07/04/25) Weight change: 0 lbs. BMI: 61.28 kg/m2 Relevant medical Hx: No past medical history on file. Laboratory results: No results found for: CHOLTOT , HDL , LDLCALC , LDLDIRECT , TRIGLYCERIDE No results found for: HGBA1C , [id number] No results found for: NA No results found for: K , KPOC No results found for: GLUCOSEF , [id number] , GLUCOSE No results found for: WBC , MANUALWBC , HGB , HGBPOC , HCT , HCTPOC , PLT , MCV No results found for: NA , K , CL , CO2 , CA , BUN , CREAT , GLUCOSE , ANIONGAP , BCRATIO Current Outpatient Medications on File Prior to Visit Medication Sig Dispense Refill albuterol sulfate HFA 90 mcg/actuation aerosol inhaler inhale 1-2 puffs BY MOUTH EVERY 4 HOURS NEEDED albuterol (PROVENTIL,VENTOLIN) 2.5 mg /3 mL (0.083 %) Solution [...] no more often THAN EVERY 4 HOURS pantoprazole (PROTONIX) 40 mg Tablet, Delayed Release (E.C.) Take 40 mg by mouth daily. pramipexole (MIRAPEX) 0.5 mg tablet Take 0.5 mg by mouth 2 times daily. Nurtec ODT 75 mg Tablet, Rapid Dissolve DISSOLVE ONE TABLET BY MOUTH once daily NEEDED for migraine Mounjaro 15 mg/0.5 mL Pen Injector inject 15mg SUBCUTANEOUSLY EVERY 7 DAYS FOR ONE MONTH traMADol (ULTRAM) 50 mg tablet Take 50 mg by mouth every 6 hours as needed. venlafaxine (EFFEXOR XR) 75 mg Extended Release 24 hour capsule TAKE 3 CAPSULES BY MOUTH EVERY MORNING DULoxetine (CYMBALTA) 60 mg Capsule, Delayed Release(E.C.) Take 60 mg by mouth daily. (Patient not taking: Reported on 07/04/2025) rOPINIRole (REQUIP) 2 mg Tablet Take 2 mg by mouth 3 times daily. (Patient not taking: Reported on 07/04/2025) No current facility-administered medications on file prior to visit. Assessment: Nutrient recommendations: 5923-2565 calories, 70-95 gm protein Nutrition Diagnosis: Body Mass Index associated with health risk Obesity related to excessive energy intake as evidenced by BMI 61.28 kg/m2. Education and Plan: Summary of education: Reviewed diet with pt. Reviewed dietary guidelines for bariatric surgery. Discussed full liquid diet and progression of diet post surgery. Stressed importance of adequate hydration and protein post surgery. Encouraged lean proteins, fruits, vegetables, whole grains/healthy starches, and low fat dairy. Discussed appropriate vitamin/mineral supplementation.Answered pt questions. Materials provided: Pre-surgery FLD sample menus Patient Goals: - Continue to follow nutrition goals discussed in pre-bariatric nutrition class - Continue to keep food records - Consume 70-95 gm protein daily - Balance meals using the plate method (lean protein and non-starchy veggies) - Follow-up post op. Total time spent with patient was 25 minutes. Cumulative yearly time: 1 hours and 55 minutes. Based on this nutrition assessment, pt is approved by nutrition for bariatric surgery as there are no contraindications at this time. Thank you for this referral. Steven Turcios RD D SCOUT documented in this encounter Plan of Treatment Upcoming Encounters Date Type Department Care Team (Late st Contact Info) Description 09/26/2025 3:00 PM FIELD SCOUT Video Visit [facility] Spine Multidisciplinary Pain [address] [place] [address] Laila Thompson PsyD [address] [place] [address] 10/10/2025 8:00 AM FIELD SCOUT Video Visit [facility] Spine Multidisciplinary Pain [address] [place] [address] Laila Thompson PsyD [address] [place] [address] 10/21/2025 8:00 AM FIELD SCOUT Video Visit [facility] Spine Multidisciplinary Pain [address] [place] [address] Laila Thompson PsyD [address] [phone] documented as of this encounter Visit Diagnoses Not on filedocumented in this encounter
[2025-09-16 00:05] VITALS: BP 105/82; PULSE 104; RESP 20; TEMP 36.9; O2SAT 98; BMI 61.2
--- OUTSIDE RECORDS SUMMARY | 2025-09-16 00:06 | XMS_ITS | Clinical Summary ---
Author Organization [facility] Address [address] [place]: Epic Prelude ADT TOD [place]NUM [id number] Care Team Providers Care Hull Sorter Name Role Phone Unavailable Primary Care Provider Unavailabl e Allergies Active Allergy Reactions Criticality Noted Date Comments Aspirin Nausea and Vomiting Low 07/07/2017 Citalopram Hallucination Low 07/07/2017 Prednisone Nausea and Vomiting Low 07/07/2017 Medications DULoxetine (CYMBALTA) 60 mg Capsule, Delayed Release(E.C.) Take 60 mg by mouth daily. 07/07/20 17 Active Additional Information Patient not taking.Reported on 07/04/2025 rOPINIRole (REQUIP) 2 mg Tablet Take 2 mg by mouth 3 times daily. 07/07/20 17 Active Additional Information Patient not taking.Reported on 07/04/2025 albuterol sulfate HFA 90 mcg/actuation aerosol inhaler inhale 1-2 puffs BY MOUTH EVERY 4 HOURS NEEDED Active albuterol (PROVENTIL,PEDRO PETRA) 2.5 mg /3 mL (0.083 %) Solution for Nebulization use 1 vial in nebulizer FOUR TIMES DAILY Active ARIPiprazole (ABILIFY) 10 mg tablet Take 10 mg by mouth daily. Active atorvastatin (LIPITOR) 20 mg tablet TAKE 1 TABLET BY MOUTH EVERY DAY FOR ONE MONTH Active azelastine (ASTELIN) 137 mcg/actuation nasal spray USE 2 SPRAYS IN EACH NOSTRIL TWICE DAILY Active OneTouch Ultra Test Strip use to test 3 times daily 06/04/20 25 Active buPROPion HCL (WELLBUTRIN XL) 300 mg Extended Release 24 hour tablet Take 300 mg by mouth daily. Active busPIRone (BUSPAR) 7.5 mg Tablet Take 7.5 mg by mouth 2 times daily. Active gabapentin (NEURONTIN) 100 mg capsule Take 100 mg by mouth 3 times daily. Active insulin degludec (TRESIBA) 100 unit/mL pen syringe INJECT 180 UNITS (1.6ML) SUBCUTANEOUSLY EVERY DAY Active levocetirizine (XYZAL) 5 mg tablet Take 5 mg by mouth 2 times daily. Active losartan (COZAAR) 25 mg tablet Take 25 mg by mouth daily. Active metoprolol succinate (TOPROL XL) 100 mg Extended Release 24 hour tablet Take 100 mg by mouth 2 times daily. Active montelukast (SINGULAIR) 10 mg tablet Take 10 mg by mouth daily. Active nateglinide 60 mg Tablet TAKE 1 TABLET BY MOUTH THREE TIMES DAILY before meals; FOR diabetes take ONLY when you eat a meal UP TO THREE TIMES DAILY, no more often THAN EVERY 4 HOURS 06/03/20 25 Active pantoprazole (PROTONIX) 40 mg Tablet, Delayed Release (E.C.) Take 40 mg by mouth daily. Active pramipexole (MIRAPEX) 0.5 mg tablet Take 0.5 mg by mouth 2 times daily. Active Nurtec ODT 75 mg Tablet, Rapid Dissolve DISSOLVE ONE TABLET BY MOUTH once daily NEEDED for migraine Active Mounjaro 15 mg/0.5 mL Pen Injector inject 15mg SUBCUTANEOUSLY EVERY 7 DAYS FOR ONE MONTH 06/13/20 25 Active traMADol (ULTRAM) 50 mg tablet Take 50 mg by mouth every 6 hours as needed. Active venlafaxine (EFFEXOR XR) 75 mg Extended Release 24 hour capsule TAKE 3 CAPSULES BY MOUTH EVERY MORNING Active Active Problems Problem Noted Date Diagnosed Date Restless leg syndrome 07/07/2017 Severe episode of recurrent major depressive disorder, without psychotic features 07/07/2017 Encounters Date Type Department Care Team Description 09/12/2025 11:09 AM [facility] - 09/12/2025 11:59 PM [facility] Hospital Encounter [facility] [address] [place] [address] Uri William MD Gott, Steven Nicole, RD Discharge Disposition: Home or Self Care 09/12/2025 11:08 AM 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 - 09/12/2025 11:59 PM [facility] Hospital Encounter [facility] [address] [place] [id number] Uri William MD Myers, Jesse Discharge Disposition: Home or Self Care 09/12/2025 9:00 AM 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 Video Visit [facility] Spine Multidisciplinary Pain E [employer] [address] [place] [id number] Laila Thompson PsyD Bipolar affective disorder, remission status unspecified (CMS/HCC) (Primary Dx); Psychological factors affecting morbid obesity (CMS/HCC); Morbid obesity with BMI of 60.0-69.9, adult (CMS/HCC) 08/28/2025 12:36 PM 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 - 08/28/2025 11:59 PM 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 Hospital Encounter [facility] [address] [place] [address] Maximo Gonsales MD Costa, Victor, MD Discharge Disposition: Home or Self Care 08/28/2025 12:25 PM 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 - 08/28/2025 11:59 PM 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 Hospital Encounter [facility] [address] [place] [address] Uri William MD Discharge Disposition: Home or Self Care 08/27/2025 External Device Data [facility] Provider, Abstract 08/21/2025 External Device Data [facility] Provider, Abstract 08/20/2025 External Device Data [facility] Provider, Abstract 08/15/2025 9:00 AM CDT Video Visit [facility] Spine Multidisciplinary Pain E [employer] [address] [place] [phone] Laila Thompson PsyD Bipolar disorder, current episode mixed, moderate (CMS/HCC) (Primary Dx); Morbid obesity with BMI of 60.0-69.9, adult (CMS/HCC); Psychological factors affecting morbid obesity (CMS/HCC) 08/15/2025 Orders Only [facility] [address] [place] [phone] Maximo Gonsales MD Type 2 diabetes mellitus without complications, unspecified whether manager long term care insulin use (CMS/HCC) (Primary Dx); Morbid obesity with BMI of 60.0-69.9, adult ([facility]); Benign essential HTN; Gastroesophageal reflux disease, unspecified whether esophagitis present; ELO treated with BiPAP; Chronic bronchitis, unspecified chronic bronchitis type (CMS/HCC); Bipolar affective disorder, remission status unspecified ([facility]/HCC) 08/13/2025 External Device Data [facility] Provider, Abstract 08/07/2025 11:00 AM CDT Video Visit [facility] Spine Multidisciplinary Pain E [employer] [address] [place] [address] Laila Thompson PsyD Bipolar disorder, current episode mixed, moderate ([facility]) (Primary Dx); Morbid obesity with BMI of 60.0-69.9, adult ([facility]/HCC) 07/31/2025 9:00 AM CDT Office Visit [facility] Spine Multidisciplinary Pain E [employer] [address] [place] [address] Laila Thompson PsyD Bipolar disorder, current episode mixed, moderate ([facility]/HCC) (Primary Dx) 07/11/2025 2:00 PM CDT Office Visit [facility] Spine Multidisciplinary Pain E [employer] [address] [place] [address] Laila Thompson PsyD Psychological factors affecting morbid obesity ([facility]) (Primary Dx); Morbid obesity with BMI of 60.0-69.9, adult ([facility]); Bipolar affective disorder, remission status unspecified ([facility]) 07/04/2025 10:40 AM CDT Office Visit [facility] Gen Spec Surg [address] [facility] [address] [place] [address] Maximo Gonsales MD Morbid obesity with BMI of 60.0-69.9, adult ([facility]) (Primary Dx); Gastroesophageal reflux disease, unspecified whether esophagitis present 07/02/2025 Orders Only [facility] [address] [place] [address] Maximo Gonsales MD Tobacco dependence (Primary Dx) 07/02/2025 Telephone [facility] [address] [place] [address] Maximo Gonsales MD Bariatrics 07/02/2025 Orders Only [facility] [address] [place] [address] Maximo Gonsales MD Morbid obesity with BMI of 60.0-69.9, adult ([facility]) (Primary Dx); Gastroesophageal reflux disease, unspecified whether esophagitis present; Benign essential HTN; Type 2 diabetes mellitus without complication, unspecified whether manager long term care insulin use ([facility]); ELO (obstructive sleep apnea); Bipolar affective disorder, remission status unspecified ([facility]); Other chronic pain 06/27/2025 Telephone [facility] [address] [place] [address] Maximo Gonsales MD Bariatrics 06/19/2025 External Device Data [facility] Provider, Abstract from Last 3 Months Social History Tobacco Use Types Packs/Day Years Used Date Smoking Tobacco: Former Cigarettes 0 Q uit: 06/07/2025 Smokeless Tobacco: Never Tobacco Cessation:Counseling Given: Not Answered Alcohol Use Standard Drinks/Week Comments Yes 0 (1 standard drink = 0.6 oz pur e alcohol) special occassions Comments Unknown Sex and Gender Information Value Date Recorded Sex Assigned at Not on file Legal Sex Female 5:09 AM 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 Gender Identity Not on file Sexual Orientation Not on file Last Filed Vital Signs Vital Sign Reading Time Taken Comments Blood Pressure 138/74 07/04/2025 10:33 AM CDT Pulse 103 07/04/2025 10:33 AM CDT Temperature 36.2 C (97.1 F) 07/04/2025 10:33 AM CDT Respiratory Rate 18 07/07/2017 1:47 PM CDT Oxygen Saturation 96% 07/04/2025 10:33 AM CDT Inhaled Oxygen Concentration - - Weight 182.8 kg (403 lb) 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/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[employer] Height 172.7 cm (5' 8 ) 07/04/2025 10:33 AM CDT Body Mass Index 61.28 07/04/2025 10:33 AM CDT Plan of Treatment Upcoming Encounters Date Type Department Care Team (Late st Contact Info) Description 09/26/2025 3:00 PM 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 Video Visit [facility] Spine Multidisciplinary Pain E [employer] [employer] [address] [place] [address] Laila Thompson PsyD [address] [place] [place] [address] 10/10/2025 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 Video Visit [facility] Spine Multidisciplinary Pain E [employer] [employer] [address] [place] [address] Laila Thompson PsyD [address] [place] [address] [place] [address] 10/21/2025 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 Video Visit [facility] Spine Multidisciplinary Pain [facility] [employer] [address] [place] [address] Laila Thompson PsyD [address] [place] [address] [place] [address] Health Maintenance Due Date Last Done Comments DIABETES ANNUAL FOOT EXAM 1996 DIABETES ANNUAL RETINAL EXAM 1996 DIABETES MICROALBUMIN ANNUAL SCREEN 1996 LDL CHOLESTEROL ANNUAL 1996 HEPATITIS B VACCINES (1 of 3 - 19+ 3-dose series) 1997 HPV/Cotest (21-29) 1999 CERVICAL CANCER SCREENING 2008 HPV/Cotest (30-65) 2008 PAP SMEAR 2008 BREAST CANCER SCREENING 2018 COLORECTAL SCREENING 2023 Colorectal Cancer Screening 2023 FIT-DNA Q 3 years 2023 FIT/FOBT Q 1 year 2023 Flex Sig/CT Colonography Q 5 years 2023 DIABETES HBA1C Q 6 MONTHS 05/17/20242023, 05/11/2023 INFLUENZA VACCINE (#1) 2025 7, 06/24/2015, COVID-19 Vaccine (3 - 2024-2 6 season) 2025 03/17/2021, 02/03/2021 DTAP/TDAP/TD VACCINES (3 - T d or Tdap) 12/15/2032 12/15/2022, 01/25/2022 HPV VACCINES Aged Out No longer eligi ble based on patient's age to complete this topic Procedures Procedure Name Priority Date/Time Associated Diagnosis Comments NICOTINE SCREEN, URINE Routine 07/01/2025 11:55 AM CDT Tobacco dependence from Last 3 Months Results * NICOTINE SCREEN, URINE (07/01/2025 11:55 AM CDT) NICOTINE, URINE <2 ng/mL [facility] [place] COTININE, URINE 38 ng/mL [facility] [place] [id number], URINE <2 ng/mL [facility] [place] NORNICOTINE, URINE <2 ng/mL [facility] [place] NORCOTININE, URINE <2 ng/mL [facility] [place] [facility] ANABASINE, URINE <2 ng/mL [facility] [place] Comment: Individuals exposed to second hand or passive tobacco smoke may demonstrate concentrations of nicotine and metabolites greater than those indicated for non- smokers. Reference Ranges: Active Non-Smoker Tobacco User (ng/mL) (ng/mL) Nicotine <17 200-700 Cotinine <20 300-1300 [id number] <50 3000-75889 Nor-Nicotine <2 30-900 Nor-Cotinine <2 Not Established Anabasine <2 10-500 This test was developed and its analytical performance characteristics have been determined by [facility] [place], [place]. It has not been cleared or approved by the U.S. Food and Drug Administration. This assay has been validated pursuant to the CLIA regulations and is used for clinical purposes. FASTING:NO FASTING: NO Test Performed at: [facility] [address] [facility] [place] [place] Dong Velazquez M.D.,PhD Urine URINE SPECIMEN OBTAINED BY CLEAN CATCH PROCEDURE / Unknown 07/01/2025 11:55 AM CDT 07/01/2025 11:58 AM CDT us Maximo Gonsales MD URINE ORDERABLES Final Result [facility] [phone] [facility] [address] [place] from Last 3 Months Insurance MEDICARE PART A [place] B [place]
--- OUTSIDE RECORDS SUMMARY | 2025-09-16 00:07 | XMS_ITS | Data Portability ---
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 appetite is decreasing. monitor sugars. call right away if under 110 Not available 04/15/2025 09:01:50 05/13/2025 05/13/2025 we spent a great deal of time discussing dietary control of weight and sugar. despite higher doses of mounjaro, she continues to gain weight. she has an ncs pending for tingling. this is why she was started on gabapentin. she is on a low dose. Not available 05/13/2025 08:32:32 Plan of Treatment Reminders Order Date Submit Date Provider Last Modified By Organization Details Last Modified Time Details Appointments RECHECK 15 2024 09:30A M Milly Wills MD Not available Not available Not available Lab respirato ry pathogens DNA and RNA panel, PCR, nasophary nx 2024 025 [facility] ([facility]), [address] [place] [address], [address], 09/05/2025 10:10:36 CMP, serum or plasma 2024 025 [facility], [address] [place] [address], [place], [address], 05/13/2025 09:52:05 CBC 2024 025 [facility], [address], [place], [address], 05/13/2025 09:27:41 thyrotrop in, QN, serum or plasma 2024 025 [facility], [address], [place], [address], 05/13/2025 10:15:19 Referral bariatric surgery referral [email or web address] [facility] [place], [address], 07/09/2025 12:44:19 Procedures None recorded. Surgeries None recorded. Imaging electroca rdiogram 2024 025 [email or web address] [facility] ([facility]), [address] [place], [address], 05/13/2025 15:50:07 Medication Orders neomycin- polymyxin -hydrocor t 3.5 mg-10,000 unit/mL-1 % ear drops,jesús p 2024 025 [facility] [place], [address] [place], [address], 08/16/2025 10:04:47 Patient TargetsNo targets recorded. Patient Instructions Encounter Date Encounter Id Patient Instructions Last Modified By Organization Details Last Modified Time 08/15/2025 [id number] Follow up for worsening [email or web address] Not available 08/15/2025 08:31:22 Reason for Referral Bariatric Surgery Referral f or Morbid obesity Referring Physician: Milly Wills, Family Medicine, Encounter Date: 05/20/2025 Results Created Date Observation Date Name Description Value Unit Range Abnormal Flag Note LastModifiedBy Organization Detail LastModifiedTime 05/13/2005/13/2025 CBC WBC 10.7 x10 4.0-10 .5 high Not Available [facility] [address], [place], [address], 05/13/2025 09:27:41 05/13/20 25 05/13/2025 CBC RBC 4.33 x10 3.50-5 .50 Not Available [facility] [address], [place], [address], 05/13/2025 09:27:41 05/13/20 25 05/13/2025 CBC HGB 12.1 g/dL 12.0-1 6.0 Not Available [facility] [address], [place], [address], 05/13/2025 09:27:41 05/13/20 25 05/13/2025 CBC HCT 37.9 % 37.0-4 7.0 Not Available [facility] [address], [place], [address], 05/13/2025 09:27:41 05/13/20 25 05/13/2025 CBC MCV 87.6 fL 80.0-9 9.9 Not Available [facility] [address], [place], [address], 05/13/2025 09:27:41 05/13/2005/13/2025 CBC MCH 28.0 pg 27.0-3 2.0 Not Available [facility] [address], [place], [address], 05/13/2025 09:27:41 05/13/20 25 05/13/2025 CBC MCHC 32.0 g/dL 32.0-3 6.0 Not Available [facility] [address], [place], [address], 05/13/2025 09:27:41 05/13/20 25 05/13/2025 CBC RDW 15.3 % 11.5-1 4.5 high Not Available [facility] [address] [facility] 1, [place], [address], 05/13/2025 09:27:41 05/13/20 25 05/13/2025 CBC plt 297.7 x10 140.0- 451.0 Not Available [facility] [address] [facility] 1, [place], [address], 05/13/2025 09:27:41 05/13/20 25 05/13/2025 CBC lymphocytes % 16.8 % 20.0-5 0.0 low Not Available [facility] [address] [facility] 1, [place], [address], 05/13/2025 09:27:41 05/13/20 25 05/13/2025 CBC granulcytes % 76.3 % 30.0-7 0.0 high Not Available [facility] [address] [facility] 1, [place], [address], 05/13/2025 09:27:41 05/13/20 25 05/13/2025 CBC monocytes % 4.3 % 2.0-16 .0 Not Available [facility] [address] [facility] 1, [place], [address], 05/13/2025 09:27:41 05/13/20 25 05/13/2025 CBC granulcytes# 8.2 x10 Not Nancy ilable [facility] [address] [facility] 1, [place], [address], 05/13/2025 09:27:41 05/13/20 25 05/13/2025 CBC lymphocytes # 1.8 x10 Not Available [facility] [address], [place], [address], 05/13/2025 09:27:41 05/13/20 25 05/13/2025 CBC monocytes # 0.5 x10 Not Avai lable [facility] [address] [facility], [place], [address], 05/13/2025 09:27:41 05/13/20 25 05/13/2025 CMP (FEMA LE) glucose 190.0 mg/dL 60.0-9 9.0 high Not Available [facility] [address] [facility], [place], [address], 05/13/2025 09:52:05 05/13/20 25 05/13/2025 CMP (FEMA LE) BUN (blood urea nitrogen) 13.0 mg/dL 10.0-2 6.0 Not Available [facility] [address] [facility], [place], [address], 05/13/2025 09:52:05 05/13/20 25 05/13/2025 CMP (FEMA LE) creatinine (serum) 0.7 mg/dL 0.4-1. 5 Not Available [facility] [address] [facility], [place], [address], 05/13/2025 09:52:05 05/13/20 25 05/13/2025 CMP (FEMA LE) BUN/creatini ne ratio 18.57 ratio Not Available [facility] [address] [facility], [place], [address], 05/13/2025 09:52:05 05/13/20 25 05/13/2025 CMP (FEMA LE) eGFR calculated 95.7 Not Available [facility] [address] [facility], [place], [address], 05/13/2025 09:52:05 05/13/20 25 05/13/2025 CMP (FEMA LE) total protein 7.2 g/dL 6.0-8. 5 Not Available [facility] [address] [facility], [place], [address], 05/13/2025 09:52:05 05/13/20 25 05/13/2025 CMP (FEMA LE) total bilirubin 0.6 mg/dL 0.2-1. 3 Not Available [facility] [address] [facility], [place], [address], 05/13/2025 09:52:05 05/13/20 25 05/13/2025 CMP (FEMA LE) albumin 3.8 g/dL 3.5-5. 5 Not Available [facility] [address] [facility], [place], [address], 05/13/2025 09:52:05 05/13/20 25 05/13/2025 CMP (FEMA LE) globulin 3.4 calc Not Available [facility] [address] [facility], [place], [address], 05/13/2025 09:52:05 05/13/20 25 05/13/2025 CMP (FEMA LE) AST (SGOT) 24.0 U/L 0.0-46 .0 Not Available [facility] [address] [facility], [place], [address], 05/13/2025 09:52:05 05/13/2005/13/2025 CMP (FEMA LE) altv (SGPT) 24.0 U/L 13.0-6 9.0 normal Not Available [facility] [address] [facility], [place], [address], 05/13/2025 09:52:05 05/13/20 25 05/13/2025 CMP (FEMA LE) A/G ratio 1.1 ratio Not Available [facility] [address] [facility], [place], [address], 05/13/2025 09:52:05 05/13/20 25 05/13/2025 CMP (FEMA LE) ALP phos 99.0 U/L 30.0-1 40.0 normal Not Available [facility] [address] [facility], [place], [address], 05/13/2025 09:52:05 05/13/20 25 05/13/2025 CMP (FEMA LE) calcium 9.1 mg/dL 8.4-10 .5 Not Available [facility] [address] [facility], [place], [address], 05/13/2025 09:52:05 05/13/20 25 05/13/2025 CMP (FEMA LE) sodium 136.0 mmol/ L 136.0- 145.0 Not Available [facility] [address] [facility], [place], [address], 05/13/2025 09:52:05 05/13/20 25 05/13/2025 CMP (FEMA LE) potassium 4.4 mmol/ L 3.5-5. 1 Not Available [facility] [address] [facility], [place], [address], 05/13/2025 09:52:05 05/13/20 25 05/13/2025 CMP (FEMA LE) chloride 100.0 mmol/ L 98.0-1 10.0 normal Not Available [facility] [address] [facility], [place], [address], 05/13/2025 09:52:05 05/13/20 25 05/13/2025 CMP (FEMA LE) C02 29.0 mmol/ L 22.0-3 1.0 Not Available [facility] [address] [facility], [place], [address], 05/13/2025 09:52:05 05/13/20 25 05/13/2025 CMP (FEMA LE) anion gap 7.0 calc Not Available [facility] [address], [place], [address], 05/13/2025 09:52:05 05/13/20 25 05/13/2025 CMP (FEMA LE) osmolality 285.8 calc Not Available [facility] [address] [facility] [address] [facility] 1, [place], [address], 05/13/2025 09:52:05 05/13/20 25 05/13/2025 TSH TSH 1.26 uIU/m L 0.49-3 .82 Not Available [facility] [address] [facility], [place], [address], 05/13/2025 10:15:19 09/05/20 25 09/05/2025 respi rator y patho gens DNA and RNA panel , PCR, nasop haryn x Covid negati ve Not Available [facility] ([facility]) [address] [place] [address], [address], 09/05/2025 09:14:10 09/05/20 25 09/05/2025 respi rator y patho gens DNA and RNA panel , PCR, nasop haryn x Rhinovirus negati ve Not Available [facility] ([facility]) [address] [place], [address], 09/05/2025 09:14:10 09/05/20 25 09/05/2025 respi rator y patho gens DNA and RNA panel , PCR, nasop haryn x Influenza A negati ve Not Available [facility] ([facility]) [address] [place] [address], [address], 09/05/2025 09:14:10 09/05/20 25 09/05/2025 respi rator y patho gens DNA and RNA panel , PCR, nasop haryn x Influenza B negati ve Not Available [facility] ([facility]) [address] [place], [address], 09/05/2025 09:14:10 09/05/20 25 09/05/2025 respi rator y patho gens DNA and RNA panel , PCR, nasop haryn x RSV negati ve Not Available [facility] ([facility]) [address] [place], [address], 09/05/2025 09:14:10 05/13/20 25 05/13/2025 elect rocar diogr am No observ ation record ed. [facility] ([facility]) [address] [place], [address], 05/13/2025 13:18:42 05/13/20 25 05/13/2025 elect rocar diogr am No observ ation record ed. [email or web address] [facility] ([facility]) [address] [place], [address], 05/14/2025 09:46:54 06/10/20 25 06/10/2025 imagi ng/di agnos tic resul t No observ ation record ed. [facility] [address] [place], [address], 06/22/2025 16:17:08 07/12/20 elect rocar diogr am No observ ation record ed. [email or web address] [facility] ([facility]) [address] [place], [address], 07/12/2025 15:55:10 Result Notes None recorded. 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 5 12:05:29 Type 2 diabetes mellitus 20806602 Active 2022 MARIAJOSE CRUZ null, [facility] 4 08:08:58 Chronic obstructiv e pulmonary disease 63066397 Active 2022 MARIAJOSE CRUZ null, [facility] 4 08:08:44 Chronic bronchitis 43026651 Active 2022 MARIAJOSE CRUZ null, [facility] 5 08:42:31 Chronic pain syndrome 791448273 Active 2022 MARIAJOSE CRUZ null, [facility] 5 08:42:31 Essential hypertensi on 77921385 Active 2022 MARIAJOSE CRUZ null, [facility] 4 08:08:50 Bipolar disorder 29631194 Active 2022 MARIAJOSE CRUZ null, [facility] 4 08:08:38 Migraine 32249628 Active 2022 MARIAJOSE CRUZ null, [facility] 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 5 08:42:31 Morbid obesity 763666466 Active 2024 MARIAJOSE CRUZ null, [facility] 5 08:42:31 Bronchitis 60014266 Active 2024 Taylor Acuna null, [facility] 15:36:27 Problem Notes None recorded. Procedures Surgical History Date Name Laterality Status Provider Name and Address Organization Details Recorded Time 11/05/19 23 endoscopic calcaneoplasty for Elmer deformity completed [facility] 05/17/2024 08:28:55 10/08/20 21 Knee arthroscopy/surger y completed [facility] 05/17/2024 08:26:24 04/09/20 21 arthroscopic meniscectomy completed [facility] 05/17/2024 08:27:04 04/23/20 19 arthroscopy of shoulder completed [facility] 05/17/2024 08:27:27 repair of stress incontinence by suprapubic sling completed [facility] 05/17/2024 08:27:42 repair of tendo achilles completed [facility] 05/17/2024 08:27:56 hysterectomy completed [facility] 12/26/2024 08:38:21 ligation of fallopian tube completed [facility] 12/26/2024 08:43:06 Imaging Results None recorded. Procedure Notes None recorded. Medical Equipment None Reported. Allergies Allergen ID Allergen Name Allergen Category Reaction Reaction Severity Criticality Documentation Date Start Date Code Code System Note Provider Name and Address Organization Details Recorded Time 00732 prednison e medicatio n nausea Not available Not available 05/21/2023 8640 RxNorm React ion: Nause a; Comme nt: Recor ded 12/15 11:17 AM by Taylor Singleton RN, Offic e Visit ; John marx; Jose sandoval ce: *; Reaso n: Drug aller gy; ; [facility] 14:04:58 12260 morphine sulfate medicatio n Not available Not available Not available 05/21/2023 23451 RxNorm Comme nt: Recor ded 12/15 11:17 AM by Taylor Singleton RN, Offic e Visit ; John marx; Jose sandoval ce: *; Reaso n: Drug aller gy; ; [facility] 4 14:04:55 00032 citalopra m medicatio n Not available Not available Not available 09/06/2025 2556 RxNorm Not Available ellie [employer] - prod 5 10:40:27 31079 lamotrigi ne medicatio n Not available Not available Not available 09/06/2025 35236 RxNorm Not Available rockwell [employer] - prod 5 10:40:27 924 morphine medicatio n rash mild low 01/25/2023 7052 RxNorm Padmini Mercado [facility] 4 14:04:51 925 Celexa medicatio n hallucina tions moderate low 01/25/2023 53694 8 RxNorm Padmini Mercado [facility] 4 14:04:24 926 prednison e medicatio n nausea mild low 01/25/2023 8640 RxNorm [facility] 4 14:05:01 927 aspirin medicatio n vomiting mild low 01/25/2023 1191 RxNorm Padmini Mercado [facility] 4 14:04:11 928 Lamictal medicatio n other moderate low 01/25/2023 90658 2 RxNorm irrit able/ figgi ting [facility] 4 14:04:44 929 walnut allergeni c extract food rash mild low 01/25/2023 33457 0 RxNorm Padminiarnoldo Mercado [facility], [facility]vette[facility]. 4 14:05:15 Medications Name Sig Start Date Stop Date Status Note LastModified by Organization Details LastModified Time amoxicill in 500 mg capsule take 1 capsule BY MOUTH TWICE DAILY for 10 days 09/17 completed Not Available Not Available Not Available promethaz ine-DM 6.25 mg-15 mg/5 mL oral syrup Take 5 mL every 4-6 hours by oral route as needed. 11/28 completed Not Available Not Available Not Available venlafaxi ne ER 75 mg capsule,e xtended release 24 hr TAKE 3 CAPSULES BY MOUTH EVERY MORNING active Not Available Not Available No t Available doxycycli ne hyclate 100 mg capsule take 1 capsule BY MOUTH TWICE DAILY for 10 days active Not Available Not Available No t Available atorvasta tin 20 mg tablet TAKE 1 TABLET BY MOUTH EVERY DAY FOR ONE MONTH active Not Available Not Available No t Available albuterol sulfate 2.5 mg/3 mL (0.083 %) solution for nebulizat ion use 1 vial in nebulize r FOUR TIMES DAILY active Not Available Not Available No t Available trazodone 50 mg tablet TAKE 1 TABLET BY MOUTH AT BEDTIME 04/23 completed Not Available Not Available Not Available azithromy jaya 250 mg tablet Take 2 tablets every day by oral route for 10 days. 11/12 completed Not Available Not Available Not Available tizanidin e 4 mg tablet Take 1 tablet 3 times a day by oral route as needed. 05/17 completed Not Available Not Available Not Available fluconazo le 150 mg tablet 1 tablet one time dose; may repeat dose in 1 week if still needed 01/16 completed Not Available Not Available Not Available sumatript an 100 mg tablet TAKE 1 TABLET BY MOUTH EVERY 2 HOURS NEEDED FOR MIGRAINE HEADACHE 02/14 completed Not Available Not Available Not Available hydrocodo ne 5 mg-acetam inophen 325 mg tablet 08/08 completed 0; Recorded 12/15/19 23 11:17AM by Taylor Singleton RN, Office Visit; Not Available Not Available Not Available Ativan 1 mg tablet bid prn 08/[address] Stein; 0; Recorded 12/15/19 11:17AM by Taylor Singleton, RUDY, Office Visit; Not Available Not Available Not Available meloxicam 15 mg tablet Take 1 tablet every day by oral route for 30 days. 05/17 completed Not Available Not Available Not Available prednison e 20 mg tablet TAKE TWO TABLETS BY MOUTH DAILY 01/25 completed Not Available Not Available Not Available metoprolo l succinate ER 100 mg tablet,ex tended release 24 hr TAKE 1 TABLET BY MOUTH TWICE DAILY active Not Available Not Available No t Available Wellbutri n SR 150 mg tablet, 12 hr sustained -release 11/17 completed 0; Recorded 12/15/19 11:17AM by Taylor Singleton RN, Office Visit; Not Available Not Available Not Available triamcino lone acetonide 0.5 % topical ointment apply a thin layer TO affected area of SKIN TWICE DAILY. apply TO hand ONLY active Not Available Not Available No t Available clopidogr el 75 mg tablet TAKE 1 TABLET BY MOUTH DAILY 01/25 completed Not Available Not Available Not Available sulfameth oxazole 800 mg-trimet hoprim 160 mg tablet TAKE 1 TABLET BY MOUTH EVERY TWELVE HOURS for 7 days 08/28 completed Not Available Not Available Not Available tramadol 50 mg tablet TAKE 1 TABLET BY MOUTH EVERY 6 HOURS NEEDED active Not Available Not Available No t Available ketorolac 30 mg/mL (1 mL) injection solution Inject 2 mL every 6 hours by intramus cular route. 02/24 completed Not Available Not Available Not Available pramipexo le 0.5 mg tablet TAKE 1 TABLET BY MOUTH TWICE DAILY active Not Available Not Available No t Available nateglini de 60 mg tablet TAKE 1 TABLET BY MOUTH THREE TIMES DAILY before meals; FOR diabetes take ONLY when you eat a meal UP TO THREE TIMES DAILY, no more often THAN EVERY 4 HOURS active Not Available Not Available No t Available methocarb matteo 750 mg tablet TAKE 1 TABLET BY MOUTH EVERY 6 HOURS NEEDED FOR SPASMS 05/17 completed Not Available Not Available Not Available oxycodone -acetamin ophen 10 mg-325 mg tablet TAKE ONE TABLET BY MOUTH EVERY 6 HOURS NEEDED FOR PAIN FOR SEVEN DAYS 01/25 completed Not Available Not Available Not Available trazodone 100 mg tablet TAKE 1 TABLET BY MOUTH AT BEDTIME 10/11 completed Not Available Not Available Not Available OneTouch Ultra Test strips USE TO TEST 3 TIMES DAILY active Not Available Not Available No t Available pantopraz ole 40 mg tablet,de layed release TAKE 1 TABLET BY MOUTH DAILY active Not Available Not Available No t Available dexametha sone 4 mg tablet 10/11 completed Not Available Not Available Not Available promethaz ine 25 mg/mL injection solution Take 1 mL by injectio n route for 1 day. 03/28 completed Not Available Not Available Not Available losartan 25 mg tablet TAKE 1 TABLET BY MOUTH EVERY DAY active Not Available Not Available No t Available orphenadr ine citrate ER 100 mg tablet,ex tended release TAKE 1 TABLET BY MOUTH EVERY TWELVE HOURS NEEDED FOR low back pain 10/11 completed Not Available Not Available Not Available pramipexo le 0.25 mg tablet TAKE ONE TABLET BY MOUTH AT BEDTIME 01/25 completed Not Available Not Available Not Available lidocaine HCl 2 % mucosal solution take 15ml BY MOUTH THREE TIMES DAILY NEEDED 04/09 completed Not Available Not Available Not Available buspirone 7.5 mg tablet TAKE 1 TABLET BY MOUTH TWICE DAILY active Not Available Not Available No t Available monteluka st 10 mg tablet TAKE 1 TABLET BY MOUTH EVERY DAY active Not Available Not Available No t Available hydroxyzi ne HCl 25 mg tablet 01/16 completed Not Available Not Available Not Available mupirocin 2 % topical ointment two times daily 04/09 completed Recorded 06/14/20 10:48AM by Milly Wills MD, Office Visit; Refill Quantity : 30; Gram; Not Available Not Available Not Available gabapenti n 100 mg capsule take 1 capsule BY MOUTH THREE TIMES DAILY active Not Available Not Available No t Available azelastin e 137 mcg (0.1 %) nasal spray USE 2 SPRAYS IN EACH NOSTRIL TWICE DAILY active Not Available Not Available No t Available oxycodone -acetamin ophen 7.5 mg-325 mg tablet TAKE ONE TABLET BY MOUTH EVERY 6 HOURS NEEDED FOR PAIN FOR 7 DAYS 01/25 completed Not Available Not Available Not Available methylpre dnisolone 4 mg tablets in a dose pack LARRY Collins package directio ns 01/25 completed Not Available Not Available Not Available albuterol sulfate HFA 90 mcg/actua tion aerosol inhaler inhale 1-2 puffs BY MOUTH EVERY 4 HOURS NEEDED active Not Available Not Available No t Available losartan 50 mg-hydroc hlorothia zide 12.5 mg tablet TAKE ONE AND ONE-HALF TABLETS BY MOUTH IN THE MORNING 08/08 completed Not Available Not Available Not Available ketorolac 60 mg/2 mL intramusc ular solution Inject 2 mL every day by intramus cular route for 1 day. 08/08 completed Medicati on provided by [employer] Not Available Not Available Not Available ondansetr on 4 mg disintegr ating tablet DISSOLVE ONE TABLET BY MOUTH EVERY 8 HOURS NEEDED 07/24 completed Not Available Not Available Not Available cefdinir 300 mg capsule take 1 capsule BY MOUTH TWICE DAILY for 10 days 08/25 completed Not Available Not Available Not Available metformin ER 500 mg tablet,ex tended release 24 hr TAKE TWO TABLETS BY MOUTH EVERY DAY 05/11 completed Not Available Not Available Not Available doxycycli ne hyclate 100 mg tablet TAKE ONE TABLET BY MOUTH TWICE DAILY 02/24 completed Not Available Not Available Not Available naproxen 500 mg tablet TAKE 1 TABLET BY MOUTH TWICE DAILY for 7 days active Not Available Not Available No t Available neomycin- polymyxin -hydrocor t 3.5 mg-10,000 unit/mL-1 % ear drops,jesús p instill FOUR drops into affected ear(s) THREE TIMES DAILY active Not Available Not Available No t Available azithromy jaya 500 mg tablet 11/12 completed Not Available Not Available Not Available aripipraz ole 10 mg tablet TAKE 1 TABLET BY MOUTH EVERY DAY active Not Available Not Available No t Available aripipraz ole 15 mg tablet TAKE 1 TABLET BY MOUTH EVERY DAY 04/05 completed Not Available Not Available Not Available rosuvasta tin 20 mg tablet TAKE ONE TABLET BY MOUTH at bedtime 01/25 completed Not Available Not Available Not Available bupropion HCl XL 300 mg 24 hr tablet, extended release TAKE 1 TABLET BY MOUTH EVERY DAY active Not Available Not Available No t Available bupropion HCl XL 150 mg 24 hr tablet, extended release TAKE 1 TABLET BY MOUTH EVERY DAY 03/05 completed Not Available Not Available Not Available BD Ultra-Fin e Mini Pen Needle 31 gauge x 01/06 USE DIRECTED . active Not Available Not Available No t Available Flovent HFA 110 mcg/actua tion aerosol inhaler inhale TWO puffs BY MOUTH TWICE DAILY 03/28 completed Not Available Not Available Not Available zolpidem ER 6.25 mg tablet,ex tended release,m ultiphase TAKE ONE TABLET BY MOUTH AT BEDTIME NEEDED FOR SLEEP 01/25 completed Not Available Not Available Not Available Mirapex at bedtime 08/08 completed 0; Recorded 01/01/20 9:14AM by Mariajose Cruz LPN, Annotati on/Adden dum; Not Available Not Available Not Available Diflucan one time dose 08/08 completed Recorded 10/01/20 10:49AM by Mariajose Cruz LPN, Historic al Summary; Refill Quantity : 1; Tablet; Not Available Not Available Not Available hydroxyzi ne HCl at bedtime as needed for sleep 08/08 completed 0; Recorded 12/15/19 11:17AM by Taylor Singleton RN, Office Visit; Not Available Not Available Not Available Effexor XR daily 08/08 completed 225 mg total QD; 0; Recorded 12/15/19 11:17AM by Taylor Singleton RN, Office Visit; Not Available Not Available Not Available Plavix daily 08/08 completed 0; Recorded 12/15/19 11:17AM by Taylor Singleton RN, Office Visit; Not Available Not Available Not Available metoprolo l succinate two times daily 08/08 completed 0; Recorded 12/15/19 11:17AM by Taylor Singleton RN, Office Visit; Not Available Not Available Not Available metformin daily 08/08 completed 436; Recorded 03/25/20 8:34AM by Monik ferrer (Authori zed through Milly Wills MD), Office Visit; Refill Quantity : 0; Not Available Not Available Not Available ondansetr on every eight hours, as needed 08/08 completed VO AT/tg; Recorded 12/15/19 11:17AM by Taylor Singleton RN, Office Visit; Refill Quantity : 0; Not Available Not Available Not Available Viola CR at bedtime 08/08 completed 0; Recorded 12/15/19 11:17AM by Taylor Singleton RN, Office Visit; Not Available Not Available Not Available levocetir izine 5 mg tablet TAKE 1 TABLET BY MOUTH TWICE DAILY active Not Available Not Available No t Available pramipexo le 0.75 mg tablet TAKE 1 TABLET BY MOUTH TWICE DAILY active Not Available Not Available No t Available Anoro Ellipta 62.5 mcg-25 mcg/actua tion powder for inhalatio n INHALE ONE INHALATI ON BY MOUTH DAILY 01/25 completed Not Available Not Available Not Available Anoro Ellipta daily 08/08 completed 0; Recorded 12/15/19 11:17AM by Taylor Singleton RN, Office Visit; Not Available Not Available Not Available insulin degludec (U-100) 100 unit/mL (3 mL) subcutane ous pen inject 160 units SUBCUTAN EOUSLY EVERY DAY active Not Available Not Available No t Available Tresiba FlexTouch U-200 insulin 200 unit/mL (3 mL) subcutane ous pen Inject 44 units every day by subcutan eous route for 30 days. 11/12 completed Not Available Not Available Not Available Trelegy Ellipta 100 mcg-62.5 mcg-25 mcg powder for inhalatio n INHALE 1 PUFF EVERY DAY 11/28 completed Not Available Not Available Not Available Ozempic 0.25 mg or 0.5 mg (2 mg/1.5 mL) subcutane ous pen injector 0.5 mg weekly 07/24 completed Not Available Not Available Not Available Ozempic weekly 08/08 completed Recorded 12/15/19 2:57PM by Mariajose Cruz LPN, Historic al Summary; Refill Quantity : 0; Not Available Not Available Not Available Aimovig Autoinjec tor monthly 08/[address] Bernard e; 0; Recorded 12/15/19 11:17AM by Taylor Singleton RN, Office Visit; Not Available Not Available Not Available OneTouch Ultra2 Meter USE DIRECTED . active Not Available Not Available No t Available OneTouch Delica Plus Lancet 33 gauge USE DIRECTED . active Not Available Not Available No t Available Nurtec ODT 75 mg disintegr ating tablet DISSOLVE ONE TABLET BY MOUTH once daily NEEDED for migraine active Not Available Not Available No t Available Breztri Aerospher e 160 mcg-9mcg- 4.8mcg/ac tuation HFA aerosol inhaler INHALE TWO PUFFS TWICE DAILY active Not Available Not Available No t Available losartan potassium (bulk) daily 08/08 completed 0; Recorded 12/15/19 11:17AM by Taylor Singleton RN, Office Visit; Not Available Not Available Not Available Ozempic 1 mg/dose (4 mg/3 mL) subcutane ous pen injector inject 1mg SUBCUTAN EOUSLY ONCE weekly 02/14 completed Not Available Not Available Not Available insulin glargine- yfgn (U-100) 100 unit/mL (3 mL) subcutane ous pen inject 140 units (1.4ml) SUBCUTAN EOUSLY EVERY DAY 04/15 completed Not Available Not Available Not Available Paxlovid 300 mg (150 mg x 2)-100 mg tablets in a dose pack take all 3 morning tabs (yellow side) by mouth at the same time & all 3 evening tabs (blue side) at the same time for 5 days as directed 11/17 completed Not Available Not Available Not Available Ozempic 2 mg/dose (8 mg/3 mL) subcutane ous pen injector INJECT 2MG SUBCUTAN EOUSLY every week 11/12 completed Not Available Not Available Not Available Mounjaro 7.5 mg/0.5 mL subcutane ous pen injector inject 7.5mg SUBCUTAN EOUSLY ONCE weekly FOR 28 DAYS 04/15 completed Not Available Not Available Not Available Mounjaro 5 mg/0.5 mL subcutane ous pen injector inject 5mg SUBCUTAN EOUSLY ONCE weekly 04/15 completed Not Available Not Available Not Available Mounjaro 15 mg/0.5 mL subcutane ous pen injector inject 15mg SUBCUTAN EOUSLY EVERY 7 DAYS FOR ONE MONTH active Not Available Not Available No t Available Mounjaro 10 mg/0.5 mL subcutane ous pen injector inject 10mg SUBCUTAN EOUSLY EVERY 7 DAYS FOR ONE MONTH 05/13 completed Not Available Not Available Not Available Mounjaro 12.5 mg/0.5 mL subcutane ous pen injector inject 12.5mg SUBCUTAN EOUSLY EVERY 7 DAYS FOR ONE MONTH 09/05 completed Not Available Not Available Not Available Mounjaro 2.5 mg/0.5 mL subcutane ous pen injector Inject 5 mg every week by subcutan eous route for 28 days. 03/14 completed Not Available Not Available Not Available Ozempic 0.25 mg or 0.5 mg (2 mg/3 mL) subcutane ous pen injector INJECT 0.5mg SUBCUTAN EOUSLY EVERY WEEK 07/24 completed Not Available Not Available Not Available Vitals Date Recorded Body height Body mass index (BMI) Body weight Body temperature Oxygen saturation Heart rate Systolic And Diastolic Provider Name and Address Organization Details Last Updated DateTime 5 172.72 cm 61 kg/m2 263484. 54 g 97.6 [degF] 94 % 94 /min 128/72 mm[Hg] [facility] 5 08:45:50 Date Recorded Body height Body mass index (BMI) Body weight Body temperature Heart rate Oxygen saturation Systolic And Diastolic Provider Name and Address Organization Details Last Updated DateTime 5 172.72 cm 62 kg/m2 488726. 97 g 97.2 [degF] 84 /min 95 % 122/78 mm[Hg] [facility] 5 08:31:09 Date Recorded Body height Body mass index (BMI) Body weight Body temperature Heart rate Oxygen saturation Systolic And Diastolic Provider Name and Address Organization Details Last Updated DateTime 5 172.72 cm 61.9 kg/m2 781181. 09 g 97.4 [degF] 91 /min 95 % 122/76 mm[Hg] [facility] 5 14:10:23 Date Recorded Body height Body mass index (BMI) Body weight Oxygen saturation Heart rate Respiratory rate Body temperature Systolic And Diastolic Provider Name and Address Organization Details Last Updated DateTime 5 172.72 cm 61.6 kg/m2 175065. 91 g 96 % 79 /min 18 /min 98.2 [degF] 120/80 mm[Hg] Jessica Saldivar [facility] 5 08:13:47 Date Recorded Body height Body mass index (BMI) Body weight Body temperature Heart rate Oxygen saturation Systolic And Diastolic Provider Name and Address Organization Details Last Updated DateTime 5 172.72 cm 61.2 kg/m2 364745. 29 g 97.5 [degF] 90 /min 95 % 126/74 mm[Hg] Taylor Pikeobloch [facility] 5 09:01:53 Social History Question Answer Notes LastModified by [employer] Details LastModified Time Tobacco Smoking Status Former [facility] 03/28/2023 12:42:23 When Did You Quit Smoking? 6-10yearssin celastcigare tte shawanda Information not available 03/28/2023 What Was The Date Of Your Most Recent Tobacco Screening? 08/15/2025 [email or web address] Information not available 08/15/2025 Sex: Unknown Functional Status Question Answer Note LastModified by [employer] Details LastModified Time Do you use any illicit or recreational drugs? No [email or web address] Information not available 03/28/2023 Do you or have you ever used any other forms of tobacco or nicotine? Yes [email or web address] Information not available 09/17/2023 What is your level of alcohol consumption? None [email or web address] Information not available 03/28/2023 Do you or have you ever used e-cigarettes or vape? Former user of electronic cigarettes [email or web address] Information not available 09/05/2025 Mental Status None recorded. Family History Relationship Description Onset Age of this Age Resolved Age Notes LastModified by Organization Details LastModified Time Mother Leukemia [email or web address] Not availab le 09/27/2023 14:30:47 Medical History Condition Response Coronary Artery Disease N Other Y Gout N Kidney Stones N Blood Diseases N Hyperthyroidism N Breast Cancer N Blood Transfusion N Depression N Hypothyroidism N Lung Disease N COPD Y Developmental or Behavioral Disorders N Defects or Inherited Disease N Breast Problem N Difficulty Swallowing N Anesthesia Complications N Anxiety Disorder N Meniere's disease N Muscle, Joint, or Bone Problems N Vision or Eye Problems N Arthritis N Infertility N Polyps N Cancer N Stroke N Varicosities N Endometriosis N Bladder or Kidney Problems N High Cholesterol N Liver Disease N Fibromyalgia N Headaches Y Kidney Disease N Allergies/Hayfever N Heart Problems N Ear or Hearing Problems N Hospitalizations N Thyroid Problems N GI Problems N ADD/ADHD N Skin Problems N Eating Disorder N Anemia N Constipation N Mental Illness N Ovarian Cancer N Diabetes Y Bedwetting N Seizures/Epilepsy N Tuberculosis N Eczema N Diverticulitis N Abuse/Domestic Violence N Asthma N Reflux/GERD N Hepatitis N Heart Disease N Pulmonary Embolism N Pre-Eclampsia N Hypertension Y Chronic Ear Infections N Osteoporosis N Chicken Pox N Autism Spectrum Disorder (ASD) N Thrombophilias N Gynecological HistoryNo gynecological history recorded. Obstetrics History GPAL:G 0 P 0 0 0 0 Immunizations Vaccine Type Date Status Note Provider Nam e and Address Organization Details Recorded Time COVID-19, mRNA, LNP-S, PF, 100 mcg/0.5mL dose or 50 mcg/0.25mL dose 1 completed MARIAJOSE brown [facility] 03/28/2023 12:37:01 COVID-19, mRNA, LNP-S, PF, 100 mcg/0.5mL dose or 50 mcg/0.25mL dose 1 completed MARIAJOSE brown [facility] 03/28/2023 12:37:02 Tdap 2 completed MARIAJOSE brown [facility] 03/28/2023 12:37:02 Td(adult) unspecified formulation 3 completed Not Available [facility] 11/28/2023 08:01:18 Influenza, split virus, trivalent, preservative 0 completed Not Available [facility] 11/28/2023 08:01:18 Influenza, split virus, trivalent, preservative 7 completed Not Available [facility] 11/28/2023 08:01:18 Influenza, split virus, trivalent, preservative 5 completed Not Available [facility] 11/28/2023 08:01:18 Past Encounters Encounter ID Performer Location Encounter Start Date Encounter Closed Date Diagnosis/Indication Diagnosis SNOMED-CT Code Diagnosis ICD10 Code Diagnosis IMO Codes Diagnosis Note [id number] Milly Wills MD [facility] ([facility]) [address] [place] [address] [id number] 5 01/25/2023 08:32:14 02/02/2023 06:35:19 Obesity 264562902 E66.9 Exposure t o streptococcal pharyngitis 9646692054 105 Z20.818 Acute pharyngitis 647569 003 J02.9 Morbid obesity 804707749 E66.01 [id number] ZUHAIR WILSON [facility] ([facility]) [address] [place] [address] [id number] 5 02/17/2023 08:18:36 02/17/2023 13:42:33 Migraine 43918925 G43.909 [id number] Milly Wills MD [facility] ([facility]) [address] [place] [address] [id number] 5 02/24/2023 08:02:50 02/24/2023 08:36:29 Type 2 diabetes mellitus 81777865 E11.9 Chronic bronchitis 97208 004 J42 Chronic pain syndrome 37 7503932 G89.4 Essential hypertension 10881753 I10 Bipolar disorder 8699127 4 F31.9 Pain of right calf 71975 51825 738451 M79.661 Fatigue 76007563 R53.83 [id number] ESTEE WILLS PA-C [facility] ([facility]) [address] [place] [address] [id number] 5 03/04/2023 17:36:22 03/17/2023 15:41:06 Binocular diplopia 873169528 H53.2 to ER for stat imaging.if normal then f/u with us for labs and referal to eye exam. Headache 64501368 R51.9 [id number] Milly Wills MD [facility] ([facility]) [address] [place] [address] [id number] 5 03/28/2023 12:04:20 03/28/2023 20:08:09 Type 2 diabetes mellitus 22487825 E11.9 she is tolerating ozempic wellsome nausea but not prohibitiv e.we emphasized improved diet and activty to help support and improve weight loss. no abdominal painabdome n is not tender to examinatio n. Morbid obesity 959715177 E66.01 [id number] Milly Wills MD [facility] ([facility]) [address] [place] [address] [id number] 5 05/11/2023 11:21:36 05/11/2023 13:18:05 Type 2 diabetes mellitus 43239539 E11.9 she is tolerating ozempic wellsome nausea but not prohibitiv e.we emphasized improved diet and activty to help support and improve weight loss. no abdominal painabdome n is not tender to examinatio n. we discussed gradually increasing steps understand ing m/s limitation s [id number] Milly Wills MD [facility] ([facility]) [address] [place] [address] [id number] 5 08/04/2023 10:36:09 08/04/2023 11:59:46 Migraine 53994534 G43.114 [id number] Milly Wills MD [facility] ([facility]) [address] [place] [address] [id number] 5 08/08/2023 08:52:48 08/08/2023 12:36:18 Acute upper respiratory infection 07979423 J06.9 Wheezing 38429297 R06.2 Seasonal a llergic rhinitis 019516132 J30.2 Exposure t o streptococcal pharyngitis 7841319981 105 Z20.818 she has known asthma and rhinitis to ragweed but new onset fever/sore throat. difficult to tell whether respirator y sx are truly changed or not. she has known exposure to strep.some shoddy adenopthy of the cervical chainphary nx does appear normal. [id number] ZUHAIR YANG [facility] ([facility]) [address] [place] [address] [id number] 5 09/17/2023 13:26:49 09/17/2023 15:09:49 Acute bacterial bronchitis 027710030 J20.9 [id number] Milly Wills MD [facility] ([facility]) [address] [place] [address] [id number] 5 09/27/2023 14:09:49 09/27/2023 15:23:29 Cough 76022462 R05.9 new onset sx are due to new covid. her daughter came down with similar sx cough fever headache today Atypical chest pain 1025 62496 R07.89 Tachycardia 6886429 R00. 0 Hypoxia 885035655 R09.02 COVID-19 680135634 U07.1 [id number] Milly Wills MD [facility] ([facility]) [address] [place] [address] [id number] 5 11/17/2023 08:02:49 11/17/2023 09:21:29 Bipolar I disorder, most recent episode hypomanic 77016652 F31.0 was recently depressed now slightly hypomanic did not go to bed last night and is not sleepy. her thoughts are organized and there is no rapid or pressured speech. she is not showing elated mood or grandiosit y etc. no signs of rapid cycling of thoughts. she will see her behavioral provider in 4 days. she will contact right away if mood swings to manic or depresed again. Type 2 uzma betes mellitus 89100196 E11.9 [id number] Milly Wills MD [facility] ([facility]) [address] [place] [address] [id number] 5 11/22/2023 09:40:38 11/22/2023 10:57:30 Chronic obstructive pulmonary disease 39808955 J44.9 f/u if sputum production or increase in wheezing will change to breztri. Nicotine-f illed electronic cigarette user 512535760 Z72.89 she says she is going to quit. she picked it back up 8 months ago. Allergic rhinitis 635313 04 J30.9 will refer hopefully for skin allergy testing for possible allergic triggers of her copd [id number] Milly Wills MD [facility] ([facility]) [address] [place] [address] [place] [address]-688 5 11/28/2023 08:00:57 11/28/2023 08:59:48 Diabetes mellitus 01309001 E11.9 Chronic ob structive pulmonary disease 18012059 J44.9 continue breztri. follow through with allergy testing referral. Body mass index 40+ - severely obese 733443684 Z68.42 [id number] ZUHAIR VELAZQUEZ [facility] ([facility]) [address] [place] [address] [id number] 5 02/07/2024 11:06:45 02/07/2024 11:54:35 Sore throat 204384810 J02.9 neg strep. Viral pharyngitis 462883 7 J02.8 Patient was instructed to increase room humidity and eat soft bland foods. Patient was instructed to gargle frequently with warm salt water. Raising the head of the bed, lozenges, and saline nasal spray were also recommende d. Patient may take ibuprofen or acetaminop hen as needed for pain control. If the issue does not improve in 24-48 hours, patient should return to the clinic for follow-up. [id number] Milly Wills MD [facility] ([facility]) [address] [place] [address] [id number] 5 03/05/2024 08:31:44 03/05/2024 11:34:48 Excessive daytime sleepiness - normal night sleep 395965058 G47.19 she is compliant with her bipapwill get her machine checked.if it is functionin g normally, will set her up for a bipap titration study. 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 Chronic pain syndrome 37 9173459 G89.4 Essential hypertension 89531911 I10 Fatigue 16274120 R53.83 Type 2 uzma betes mellitus 69172732 E11.9 [id number] Milly Wills MD [facility] ([facility]) [address] [place] [address] [id number] 5 04/05/2024 08:42:33 04/05/2024 09:27:03 Functional neurological disorder 756122797 F44.9 dtr's 2+ at the shoulders wrists knees and anklesno rigidityat one point she has a limb jerk while im standing in front of her in the bilateral lower limbs but diverts them to the left so that she does not kick me. there were several other indication s that this is a functional neurologic disorder. Sleep apnea 29712005 G47 .30 overnight oximetry Chronic ob structive pulmonary disease 11944055 J44.9 continue breztri. follow through with allergy testing referral. Screening mammography 24 780362 Z12.31 [id number] ZUHAIR VELAZQUEZ [facility] ([facility]) [address] [place] [address] 5 04/09/2024 13:59:41 04/09/2024 16:25:20 Pain of left shoulder joint 4587892599 0645911 M25.512 Limited ROM to left shoulder with no injury. Xray has no acute findings today. Will send referral to start physical therapy. Rxn's for Mobic and tizanidine sent. Discussed with patient about applying ice pack for 15 minutes every 2 hours while awake. Sleep with a pillow behind your shoulder for comfort.Pt is scheduled a f/u with PCP in 2 weeks for re-evaluat ion after PT has been started. [id number] Milly Wills MD [facility] ([facility]) [address] [place] [address] [id number] 5 04/23/2024 08:05:43 04/23/2024 08:40:55 [id number] Milly Wills MD [facility] ([facility]) [address] [place] [address] [id number] 5 05/14/2024 08:16:25 05/14/2024 08:39:44 Essential hypertension 00367582 I10 Type 2 uzma betes mellitus 99290059 E11.9 Fatigue 86138023 R53.83 [id number] Milly Wills MD [facility] ([facility]) [address] [place] [address] [id number] 5 05/17/2024 08:20:26 05/17/2024 15:31:22 Type 2 diabetes mellitus 38710319 E11.9 does not tolerate metforminw ill withhold sglt-2 for now due to yeast infection. she will check her sugar twice per day and report a week's worthshe will change her diet. Bipolar disorder 1171914 4 F31.9 Essential hypertension 04799563 I10 [id number] Milly Wills MD [facility] ([facility]) [address] [place] [address] [id number] 5 06/27/2024 12:05:28 06/30/2024 08:21:24 Type 2 diabetes mellitus 34472495 E11.9 Folliculitis 75490354 L7 3.9 Candidiasis of skin 4988 3006 B37.2 under the breasts there is redness with sattellite lesions it is mild without exudate or skin breakdowne ricka singleton is present during this exam. Otalgia of right ear 631 4637810 H92.01 [id number] Milly Wills MD [facility]) [address] [place] [address] [id number] 5 07/18/2024 08:34:46 07/18/2024 09:30:30 Functional neurological disorder 318359499 F44.9 dtr's 2+ at the shoulders wrists knees and anklesno rigidityat one point she has a limb jerk while im standing in front of her in the bilateral lower limbs but diverts them to the left so that she does not kick me. there were several other indication s that this is a functional neurologic disorder. [id number] Milly Wills MD [facility] ([facility]) [address] [place] [address] [id number] 5 08/01/2024 11:39:25 08/01/2024 13:47:35 Dysuria 04581291 R30.0 [id number] ZUHAIR VELAZQUEZ [facility] ([facility]) [address] [place] [address] [id number] 5 08/14/2024 14:23:00 08/14/2024 17:08:02 Abscess of skin and/or subcutaneous tissue 77437103 L02.91 Discussed warm compresses for 10 minutes every 2 hours while awake over your shirt. Take antibiotic as directed. If the area continues to enlarge, more tender or erythema then return for re-eval and possible I&D. No poking/squ eezing the area. [id number] Milly Wills MD [facility] ([facility]) [address] [place], [place] [id number] 5 08/28/2024 09:01:26 08/28/2024 14:36:14 Type 2 diabetes mellitus 02227435 E11.9 [id number] Milly Wills MD [facility] ([facility]) [address] [place], [place] [id number] 09/11/2024 08:22:05 09/12/2024 14:41:11 Type 2 diabetes mellitus 48667732 E11.9 we discussed dietary changes. she is not drinking any sugar. we discussed low carb low sugar diet. [id number] SCHUYLER SUTTON APRN [facility] ([facility]) [address] [place] [address] 5 09/29/2024 10:21:07 09/29/2024 11:36:13 Sore throat 030992005 J02.9 Acute stre ptococcal pharyngitis 4580258343 J02.0 [id number] Milly Wills MD [facility] ([facility]) [address] [place] [address] [id number] 5 10/11/2024 08:20:51 10/11/2024 09:42:31 Type 2 diabetes mellitus 67604373 E11.9 we reinforced dietary changes. she is not drinking any sugar. we discussed low carb low sugar diet.canno t tolerate metforminn ot a good candidate for sglt-2on glp-1will consider starlix Acute uppe r respiratory infection 67807214 J06.9 Acute exac erbation of chronic obstructive pulmonary disease 624253761 J44.1 compliant with Breztri in the proper dose and timing. continue breztri and albuterol no sputum no wheezing if these start please call and let me know. Morbid obesity 382960680 E66.01 [id number] Milly Wills MD [facility] ([facility]) [address] [place] [address] [id number] 5 10/29/2024 11:12:49 10/29/2024 15:39:41 Acute pharyngitis 773760815 J02.9 Streptococ yovana sore throat 44826097 J02.0 recently on amoxil, failed, then cefdinir about 1 month ago. 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 follow through with allergy testing referral. Chronic pain syndrome 37 9305576 G89.4 Essential hypertension 36189734 I10 Fatigue 83451308 R53.83 [id number] Milly Wills MD [facility] ([facility]) [address] [place] [address] [phone] 5 12/26/2024 08:26:46 12/26/2024 14:15:33 Sprain of right knee [id number] 0770591 S83.91XA Synovial p opliteal cyst of right knee 3182776698 M71.21 ortho referral initiated by ER, hopefully. She will call. [id number] Milly Wills MD [facility] ([facility]) [address] [place] [address] [phone] 5 01/16/2025 08:50:50 01/17/2025 08:11:16 Morbid obesity 803560998 E66.01 she did not tolerate 2 mg before but i think she is more tolerant now and it is worth a try. she agrees and will cautiously increase. [id number] Milly Wills MD [facility] ([facility]) [address] [place] [address] [phone] 5 02/14/2025 08:04:00 02/14/2025 11:17:27 Morbid obesity 175475670 E66.01 she did not tolerate 2 mg before but i think she is more tolerant now and it is worth a try. she agrees and will cautiously increase. Gastroesop hageal reflux disease without esophagitis 586602437 K21.9 858869 [id number] Milly Wills MD [facility] ([facility]) [address] [place] [address] [phone] 5 03/14/2025 08:14:06 03/19/2025 11:23:05 Obstructive sleep apnea syndrome 49384834 G47.33 2917886 overnight oximetry Type 2 uzma betes mellitus 96236158 E11.8 9812314 increase glargine to 144 unitsrepor t sugar in one week. [id number] Milly Wills MD [facility] ([facility]) [address] [place] [address] [phone] 5 04/15/2025 08:33:51 04/15/2025 17:32:44 [id number] Milly Wills MD [facility]) [address] [place] [address] [phone] 05/13/2025 08:18:23 05/13/2025 15:50:07 Orthostatic hypotension 10453385 I95.1 3436 [id number] Milly Wills MD [facility] ([facility]) [address] [place] [address] [phone] 5 05/20/2025 13:36:39 05/27/2025 12:09:13 Morbid obesity 881050519 E66.01 i answered her questions regarding weight loss surgery. she really wants to pursue this. she will need a psych eval. [id number] SCHUYLER SUTTON APRN [facility] ([facility]) [address] [place] [address] [phone] 08/15/2025 08:06:47 08/15/2025 08:32:44 Acute otitis externa of left ear 3979732920 633126 H60.502 158786084 [id number] Milly Wills MD [facility] ([facility]) [address] [place] [address] [phone] 09/05/2025 08:47:58 09/05/2025 12:33:19 Upper respiratory infection 46306197 J06.9 69591822 Acute bronchitis 2617338 2 J20.9 [id number] Health Concerns Section Related Observation LastModified by Organization Detai ls LastModified Time None Recorded Concern Status LastModified by Organization Details LastModified Time None Recorded Advance Directives Directive None Recorded Payers Insurance Date Sequence Insurance Name Policy Number Policy Pedraza Covered Member ID Pedraza Member ID Guarantor Name 09/02/2025 [place] - [facility] (MEDICARE) Laila A Hixenbaugh [id number] Laila A Hixenbaugh 09/02/2025 [place] [facility] Laila A Hixenbaugh [id number] Laila A Hixenbaugh 09/02/2025 2 [place] Laila A Hixenbaugh [id number] Laila A Hixenbaugh 09/02/2025 1 [place] Laila A Hixenbaugh [id number] 7 Laila A Hixenbaugh Notes Date Note Type Note Provider Name and Address Organization Details Recorded Time 04/15/20 25 text/htm l DiabetesReported by PatientHPIFor control, patient reportsusually poorly controlledbut reportstreated with diet and oral medications,hemoglobin a1c has been 7-8, andhemoglobin a1c goal is less than 7. For compliance, patient reportsnoncompliant with dietbut reportscompliant with medicationsandcompliant with follow-up visits. For associated symptoms, patient reportsdizziness,headaches,incre ased thirst (improving),increased appetite (improving),numbness of feet, andparesthesiasbut reportsno confusion. For duration, patient reportschronic. For self care, patient reportsmonitoring glucose 4 times per day(pt states 150s-170s is about where her fasting blood sugars have been running. they had been higher previously due to backorder on her insulin.).Complications and Co-morbiditiesFor chronic complications, patient reportshypertension: yesandhyperlipidemia: yes. For comorbidities, patient reportsheart failure.Dr. Corley started her on Monjuaro 10mg weekly Obstructive Sleep ApneaReported by PatientHPIFor severity, patient reportsunchanged. For alleviating factors, patient reportspositive airway pressure devices.Pt is compliant with her BiPAP and is benefiting from its usage.ROS as noted in the HPI I was out of insulin for a week. she is back on tresiba 170 units per day. her sugar is much better controlled now. 130-170. Milly Wills MD [address] [place] [address], [phone], [facility] 04/15/2025 09:02:14 05/13/20 25 text/htm l DiabetesReported by PatientHPIFor control, patient reportsusually poorly controlledbut reportstreated with diet and oral medications,hemoglobin a1c has been 7-8, andhemoglobin a1c goal is less than 7. For compliance, patient reportsnoncompliant with dietbut reportscompliant with medicationsandcompliant with follow-up visits. For associated symptoms, patient reportsdizzinessandincreased appetite (improving)but reportsno confusion. For duration, patient reportschronic. For self care, patient reportsmonitoring glucose 4 times per day(pt states 150s-200s is about where her fasting blood sugars have been running.).Complications and Co-morbiditiesFor chronic complications, patient reportshypertension: yesandhyperlipidemia: yes. For comorbidities, patient reportsheart failure.ROS as noted in the HPI Pt is here for a recheck on her Mounjaro. She is currently on the 12.5mg dosage. She has orthostasis. her sugars are always under 200 the last week. her Mounjaro and insulin were increased recently. no fluid loss or signs of blood lossno nausea at all. Milly Wills MD [address] [place] [address], [phone], [facility] 05/13/2025 08:40:11 05/20/20 25 text/htm l Pt states Dr. Juares, her orthopedist, recommended Laila to have a bariatric surgery referral. She is requesting a referral to [place] for this. Her current BMI is 61.9.She has failed weight loss medications and extensive visits for weight loss counseling.she has multiple comorbidities of her weight including DM , arthritis requiring total kne replacement, sleep apnea requiring BIPAP. Milly Wills MD [address] [place] [address], [phone], [facility] 05/20/2025 14:24:29 08/15/20 25 text/htm l Ear Pain Brief HPIReported by Patient walk in patientpatient is here today for left ear pain that started 3 days ago after swimming SCHUYLER SUTTONVALERIE [address] [place], [phone], [facility] 08/15/2025 08:31:34 09/05/20 25 text/htm l Pre-OpReported by PatientHPIFor risk factors, patient reportsobstructive sleep apnea (uses apap machine)andobesebut reportsno malnutrition,non-smoker,no alcohol misuse, andno illicit drug use. For anesthesia hx, patient reportsno hx of anesthesia complicationsandno allergy to anesthetic agents. For post-op support, patient reportsadequate assistance at home. For surgery to be performed, (carpal tunnel). For location, (right).Pt is due to have carpal tunnel surgery on October 02. Upper Respiratory SymptomsReported by PatientUpper Respiratory SymptomsFor quality, patient reportsdry cough. For associated symptoms, patient reportsshortness of breath,sweats, andnauseabut reportsno chest pain,no sore throat,no vomiting, andno diarrhea. For location, patient reportschestandears (left). For duration, patient reportssymptoms lasting less than 2 weeks (3 days). Milly Wills MD [address] [place], [phone], [facility] 09/05/2025 09:22:43 OBGyn Episode No OBEpisode recorded.
--- OUTSIDE RECORDS SUMMARY | 2025-09-16 00:07 | XMS_ITS | Patient Health Record ---
Author Organization [facility] Address [address] [place] [address] Care Team Providers Care Executive Consultant Name Role Phone Magdy Ruben Primary Care Provider CeliJohan Tinoco Unavailable [phone] Allergies Allergen (clinical drug ingredient) Drug/Non Drug [...] strength-f orm from [employer] for eRX* Active Mirape[facility]* Active Social [...] Status Risk Notes Problem Chronic pain syndrome (518413217) Chronic pain syndrome (G89.4) Active confirmed Problem Lumbosacral radiculopathy (4504632) Radiculopathy, lumbosacral region (M54.17) Active confirmed Problem Arthropathy of right knee joint (disorder) (030046199) Arthropathy of right knee (M17.11) Active confirmed Problem Morbid obesity (284426523) Morbid obesity (E66.01) Active confirmed Problem Abnormal gait (24261268) Abnormality of gait and mobility (R26.9) Active confirmed Plan Of Treatment No Information Medical (General) History Surgical History Surgery Date(Month/Year) Achilles tendon repair Bladder surgery Hysterectomy Knee Surgery Shoulder surgery
--- OUTSIDE RECORDS SUMMARY | 2025-09-16 00:07 | XMS_ITS | Continuity of Care Document ---
Author Organization [facility], [facility] ([facility]) Address [address] [place] [address] Care Team Providers Care Kiln Drawer Name Role Phone MILLY FLORES Primary Care Provider Assessment No assessment recorded. Plan of Treatment Reminders Order Date Submit Date Provider Last Modified By Organization Details Last Modified Time Details Appointments RECHECK 15 2024 09:30A M Milly Flores MD Not available Not available Not available Lab None recorded . Referral None recorded . Procedures None recorded . Surgeries None recorded . Imaging None recorded . Medication Orders neomycin -polymyx in-hydro abhishek 3.5 mg-10,00 0 unit/mL- 1 % ear drops,brooke sp 2024 025 [facility], [address] [place], [address], 08/16/2025 10:04:47 Patient TargetsNo targets recorded. Patient Instructions Encounter Date Encounter Id Patient Instructions Last Modified By Organization Details Last Modified Time 08/15/2025 [id number] Follow up for worsening [email or web address] Not available 08/15/2025 08:31:22 Reason for Referral None Reported. Problems Name Problem SNOMED Code Status Onset Date Resolution Date Notes Provider Name and Address Organization Details Recorded Time Vaginal intraepith elial neoplasia 049075401 Active 2022 VAGINAL INTRAEPITH ELIAL NEOPLASIA MARIAJOSE brown, [facility] 12:05:29 Type 2 diabetes mellitus 65467355 Active 2022 MARIAJOSE brown, [facility] 4 08:08:58 Chronic obstructiv e pulmonary disease 10426177 Active 2022 MARIAJOSE brown, [facility] 4 08:08:44 Chronic bronchitis 74870050 Active 2022 MARIAJOSE brown, [facility] 5 08:42:31 Chronic pain syndrome 695730049 [facility] 20[facility] 5 08:42:31 Essential hypertensi on 28098549 Active [address] [facility] 4 08:08:50 Bipolar disorder 19196879 Active 2022 MARIAJOSE brown, [facility] 4 08:08:38 Migraine 71041983 Active 2022 [facility] 5 08:42:31 Disorder due to type 2 diabetes mellitus 805848978 Active [address] [facility] 5 08:42:31 Morbid obesity 649215297 Active 2024 [facility] 5 08:42:31 Bronchitis 68815302 Active [address] [facility] 5 15:36:27 Problem Notes None recorded. Procedures Surgical History Date Name Laterality Status Provider Name and Address Organization Details Recorded Time 11/05/19 23 endoscopic calcaneoplasty for Elmer deformity completed MARIAJOSE CRUZ [facility] 05/17/2024 08:28:55 10/08/20 21 Knee arthroscopy/surger y completed [facility] 05/17/2024 08:26:24 04/09/20 21 arthroscopic meniscectomy completed [facility] 05/17/2024 08:27:04 04/23/20 19 arthroscopy of shoulder completed [facility] 05/17/2024 08:27:27 repair of stress incontinence by suprapubic sling completed [facility] 05/17/2024 08:27:42 repair of tendo achilles completed [facility] 05/17/2024 08:27:56 hysterectomy completed [facility] 12/26/2024 08:38:21 ligation of fallopian tube completed [facility] 12/26/2024 08:43:06 Imaging Results None recorded. Procedure Notes None recorded. Medical Equipment None Reported. Allergies Allergen ID Allergen Name Allergen Category Reaction Reaction Severity Criticality Documentation Date Start Date Code Code System Note Provider Name and Address Organization Details Recorded Time 47910 prednison e medicatio n nausea Not available Not available 05/21/2023 8640 RxNorm React ion: Nause a; Comme nt: Recor ded 12/15 11:17 AM by Taylor Singleton RN, Offic e Visit ; Promo araseli; Signi ficannel ce: *; Reaso n: Drug aller gy; ; [facility] 14:04:58 22905 morphine sulfate medicatio n Not available Not available Not available 05/21/2023 27362 RxNorm Comme nt: Recor ded 12/15 11:17 AM by Taylor Singleton RN, Offic e Visit ; Promo araseli; Signi fican ce: *; Reaso n: Drug aller gy; ; Padmini brown, [facility] 4 14:04:55 18802 citalopra m medicatio n Not available Not available Not available 09/06/2025 2556 RxNorm Not Available [facility] External Data Service - prod 5 10:40:27 70976 lamotrigi ne medicatio n Not available Not available Not available 09/06/2025 52202 RxNorm Not Available [facility] External Data Service - prod 5 10:40:27 924 morphine medicatio n rash mild low 01/25/2023 7052 RxNorm Padmini Mercado [facility] 4 14:04:51 925 Celexa medicatio n hallucina tions moderate low 01/25/2023 27325 8 RxNorm [facility] 4 14:04:24 926 prednison e medicatio n nausea mild low 01/25/2023 8640 RxNorm [facility] 4 14:05:01 927 aspirin medicatio n vomiting mild low 01/25/2023 1191 RxNorm Padmini Mercado [facility] 4 14:04:11 928 Lamictal medicatio n other moderate low 01/25/2023 08006 2 RxNorm irrit able/ figgi ting [facility] 4 14:04:44 929 walnut allergeni c extract food rash mild low 01/25/2023 51037 0 RxNorm [facility] 4 14:05:15 Medications Name Sig Start Date [...] mg tablet 08/08 completed 0; Recorded 12/15/19 11:17AM by Taylor Singleton RN, Office Visit; Not Available Not Available Not Available Ativan 1 mg tablet bid prn 08/[address] Stein; 0; Recorded 12/15/19 11:17AM by Taylor Singleton [...] sustained -release 11/17 completed 0; Recorded 12/15/19 23 11:17AM by [...] 04/09 completed Recorded 06/14/20 10:48AM by Milly Flores MD, Office Visit; Refill Quantity : 30; [...] 4 mg tablets in a dose pack FOLLOWIN G package directio ns 01/25 completed Not Available [...] day. 08/08 completed Medicati on provided by [employer] Not Available Not Available Not Available ondansetr [...] e Mini Pen Needle 31 gauge x 3/16 USE DIRECTED . active Not Available Not [...] Recorded 03/25/20 8:34AM by Monik ferrer (Authori jazmyne through Milly Flores MD), Office Visit; Refill Quantity : 0; Not Available Not Available Not Available ondansetr on every eight hours, as needed 08/08 completed VO AT/tg; Recorded 12/15/19 11:17AM by Taylor Singleton RN, Office Visit; Refill Quantity : 0; Not Available Not Available Not Available Ambien CR at bedtime 08/08 completed 0; Recorded [...] 08/08 completed Recorded 12/15/19 2:57PM by Mariajose Crzu LPN, Historic al Summary; Refill Quantity : [...] and Address Organization Details Last Updated DateTime 172.72 cm 61.6 kg/m2 835120. 91 g 96 % 79 /min 18 /min 98.2 [degF] 120/80 mm[Hg] Jessica Saldivar [facility] 08:13:47 Social History Question Answer Notes LastModified by Organizat ion Details LastModified Time Tobacco Smoking Status Former Sm[facility] 03/28/2023 12:42:23 When Did You Quit Smoking? 6-10yearssin [email or web address] Information not available 03/28/2023 What Was The Date Of Your Most Recent Tobacco Screening? 08/15/2025 [email or web address] Information not available 08/15/2025 Sex: Unknown Functional Status Question Answer Note LastModified by Organizat ion Details LastModified Time Do you use any illicit or recreational drugs? No [email or web address] Information not available 03/28/2023 Do you or have you ever used any other forms of tobacco or nicotine? Yes [email or web address] Information not available 09/17/2023 What is your level of alcohol consumption? None [email or web address] Information not available 03/28/2023 Do you or have you ever used e-cigarettes or vape? Former user of electronic cigarettes [email or web address] Information not available 09/05/2025 Mental Status None recorded. Family History Relationship Description Onset Age of this Age Resolved Age Notes LastModified by Organization Details LastModified Time Mother Leukemia shawanda Not availab le 09/27/2023 14:30:47 Medical History Condition Response Coronary Artery Disease N Other Y Gout N Kidney Stones N Blood Diseases N Hyperthyroidism N Breast Cancer N Blood Transfusion N Depression N COPD Y Lung Disease N Hypothyroidism N Developmental or Behavioral Disorders N Defects or Inherited Disease N Breast Problem N Difficulty Swallowing N Anesthesia Complications N Meniere's disease N Anxiety Disorder N Muscle, Joint, or Bone Problems N Vision or Eye Problems N Arthritis N Polyps N Infertility N Cancer N Varicosities N Stroke N Endometriosis N Bladder or Kidney Problems N High Cholesterol N Liver Disease N Headaches Y Fibromyalgia N Kidney Disease N Allergies/Hayfever N Heart Problems [...] 50 mcg/0.25mL dose [address] [facility] 03/28/2023 12:37:01 COVID-19, mRNA, LNP-S, PF, 100 mcg/0.5mL dose or 50 mcg/0.25mL dose [address] [facility] 03/28/2023 12:37:02 Tdap [address] [facility] 03/28/2023 12:37:02 Td(adult) unspecified formulation 3 completed Not Available [facility] 11/28/2023 08:01:18 Influenza, split virus, trivalent, preservative 0 completed Not Available [facility] 11/28/2023 08:01:18 Influenza, split virus, trivalent, preservative 7 completed Not Available [facility] 11/28/2023 08:01:18 Influenza, split virus, trivalent, preservative 5 completed Not Available [facility] 11/28/2023 08:01:18 Past Encounters Encounter ID Performer Location Encounter Start Date Encounter Closed Date Diagnosis/Indication Diagnosis SNOMED-CT Code Diagnosis ICD10 Code Diagnosis IMO Codes Diagnosis Note [id number] SCHUYLER SUTTON APRN [facility] ([facility]) [address] [place] [address] 08/15/2025 08:06:47 08/15/2025 08:32:44 Acute otitis externa of left ear 0065536123 589881 H60.502 [id number] Health Concerns Section Related Observation LastModified by Organization Detai ls LastModified Time None Recorded Concern Status LastModified by Organization Details LastModified Time None Recorded Payers Encounter Date Sequence Insurance Name Policy Number Policy Pedraza Covered Member ID Pedraza Member ID Guarantor Name 08/15/2025 1 [place] Laila A Hixenbaugh [id number] Laila A Hixenbaugh 08/15/2025 2 [place] Laila A Hixenbaugh [id number] Laila A Hixenbaugh Notes Date Note Type Note Provider Name and Address Organization Details Recorded Time 08/15/2025 text/html Ear Pain Brief HPIReported by Patient walk in patientpatient is here today for left ear pain that started 3 days ago after swimming SCHUYLER SUTTON APRN [address] [place], [address], [facility], [place] 08/15/2025 08:31:34 OBGyn Episode No OBEpisode recorded.
--- OUTSIDE RECORDS SUMMARY | 2025-09-16 00:07 | XMS_ITS | Continuity of Care Document ---
Author Organization [facility] Sridhar Hyman, [facility] ([facility]) Address [address] [place] [address] Care Team Providers Care Picker And Sorter Load And Unload Name Role Phone MILLY FLORES Primary Care Provider [phone] Assessment No assessment recorded. Plan of Treatment Reminders Order Date Submit Date Provider Last Modified By Organization Details Last Modified Time Details Appointments RECHECK 15 2024 09:30A M Milly Flores MD Not available Not available Not available Lab respirato ry pathogens DNA and RNA panel, PCR, nasophary nx 2024 11 025 ELLIE [facility] ([facility]), [address] [place], [address], 09/05/2025 10:10:36 Referral None recorded. Procedures None recorded. Surgeries None recorded. Imaging None recorded. Medication Orders None recorded. Patient TargetsNo targets recorded. Patient InstructionsNo instructions recorded. Reason for Referral None Reported. Results Created Date Observation Date Name Description Value Unit Range Abnormal Flag Note LastModifiedBy Organization Detail LastModifiedTime 09/05/2009/05/2025 respi rator y patho gens DNA and RNA panel , PCR, nasop haryn x Covid negati ve Not Available [facility] ([facility]) [address] [place], [address], 09/05/2025 09:14:10 09/05/20 25 09/05/2025 respi rator y patho gens DNA and RNA panel , PCR, nasop haryn x Rhinovirus negati ve Not Available [facility] ([facility]) [address] [place], [address], 09/05/2025 09:14:10 09/05/2009/05/2025 respi rator y patho gens DNA and RNA panel , PCR, nasop haryn x Influenza A negati ve Not Available [facility] ([facility]) [address] [place], [address], 09/05/2025 09:14:10 09/05/2009/05/2025 respi rator y patho gens DNA and RNA panel , PCR, nasop haryn x Influenza B negati ve Not Available [facility] ([facility]) [address] [place], [address], 09/05/2025 09:14:10 09/05/2009/05/2025 respi rator y patho gens DNA and RNA panel , PCR, nasop haryn x RSV negati ve Not Available [facility] ([facility]) [address] [place] [address], [address], 09/05/2025 09:14:10 Result Notes None recorded. Problems Name Problem SNOMED Code Status Onset Date Resolution Date Notes Provider Name and Address Organization Details Recorded Time Vaginal intraepith elial neoplasia 398174588 Active 2022 VAGINAL INTRAEPITH ELIAL NEOPLASIA MARIAJOSE brown [facility] 5 12:05:29 Type 2 diabetes mellitus 26983759 Active 2022 MARIAJOSE brown [facility] 4 08:08:58 Chronic obstructiv e pulmonary disease 80191149 Active 2022 MARIAJOSE brown [facility] 4 08:08:44 Chronic bronchitis 60444602 Active 2022 MARIAJOSE brown, [facility] 5 08:42:31 Chronic pain syndrome 326202596 Active 2022 MARIAJOSE CRUZ kevin, [facility] 5 08:42:31 Essential hypertensi on 80131959 Active 2022 MARIAJOSE brown, [facility] 4 08:08:50 Bipolar disorder 56546640 Active 2022 MARIAJOSE brown, [facility] 4 08:08:38 Migraine 52911795 [facility] 08:42:31 Disorder due to type 2 diabetes mellitus 354328572 Active 2024 MARIAJOSE brown, [facility] 5 08:42:31 Morbid obesity 624733549 Active 2024 [facility] 08:42:31 Bronchitis 96349912 Active 2024 [facility] 5 15:36:27 Problem Notes None recorded. Procedures Surgical History Date Name Laterality Status Provider Name and Address Organization Details Recorded Time 11/05/19 23 endoscopic calcaneoplasty for Elmer deformity completed MARIAJOSEHUGH CRUZ [facility], Sridhar 05/17/2024 08:28:55 10/08/20 21 Knee arthroscopy/surger y completed MARIAJOSEHUGH CRUZ [facility], FadumoLJaimeCJaime 05/17/2024 08:26:24 04/09/20 21 arthroscopic meniscectomy completed MARIAJOSE ANTHONY [facility], [place] 05/17/2024 08:27:04 04/23/20 19 arthroscopy of shoulder completed Formerly named [facility] 05/17/2024 08:27:27 repair of stress incontinence by suprapubic sling completed Formerly named [facility], LJaimeLJaimeCJaime 05/17/2024 08:27:42 repair of tendo achilles completed Formerly named [facility], FadumoLShaggy 05/17/2024 08:27:56 hysterectomy completed Formerly named [facility], L.LJaimeCJaime 12/26/2024 08:38:21 ligation of fallopian tube completed Formerly named [facility], LJaimeLJaimeCJaime 12/26/2024 08:43:06 Imaging Results None recorded. Procedure Notes None recorded. Medical Equipment None Reported. Allergies Allergen ID Allergen Name Allergen Category Reaction Reaction Severity Criticality Documentation Date Start Date Code Code System Note Provider Name and Address Organization Details Recorded Time 06099 prednison e medicatio n nausea Not available Not available 05/21/2023 8640 RxNorm React ion: Nause a; Comme nt: Recor ded 12/15 11:17 AM by Taylor Singleton RN, Offic e Visit ; John sandoval ce: *; Reaso n: Drug aller gy; ; Padmini Mercado [facility] 4 14:04:58 58376 morphine sulfate medicatio n Not available Not available Not available 05/21/2023 77694 RxNorm Comme nt: Recor ded 12/15 11:17 AM by Taylor Singleton RN, Offic e Visit ; Promo araseli; Jose sandoval ce: *; Reaso n: Drug aller gy; ; Padmini Mercado [facility] 4 14:04:55 83204 citalopra m medicatio n Not available Not available Not available 09/06/2025 2556 RxNorm Not Available ellie - External Data Service - prod 5 10:40:27 82832 lamotrigi ne medicatio n Not available Not available Not available 09/06/2025 37442 RxNorm Not Available ellie - External Data Service - prod 5 10:40:27 924 morphine medicatio n rash mild low 01/25/2023 7052 RxNorm Padmini Ivonryan [facility] 4 14:04:51 925 Celexa medicatio n hallucina tions moderate low 01/25/2023 01084 8 RxNorm Padminiarnoldo Mercado [facility] 4 14:04:24 926 prednison e medicatio n nausea mild low 01/25/2023 8640 RxNorm Padmini Mercado [facility] 4 14:05:01 927 aspirin medicatio n vomiting mild low 01/25/2023 1191 RxNorm Padminiarnoldo Mercado [facility] 4 14:04:11 928 Lamictal medicatio n other moderate low 01/25/2023 91387 2 RxNorm irrit able/ figgi ting Padminiarnoldo Mercado [facility] 4 14:04:44 929 walnut allergeni c extract food rash mild low 01/25/2023 52879 0 RxNorm Padminiarnoldo Mercado [facility] 4 14:05:15 Medications Name Sig Start Date [...] completed Not Available Not Available Not Available [employer] Software[employer] Ultra Test strips USE TO TEST 3 [...] day. 08/08 completed Medicati on provided by Stock Not Available Not Available Not Available [...] at bedtime 08/08 completed 0; Recorded 01/01/20 23 9:14AM by Mariajose Cruz LPN, Annotati on/Adden [...] 436; Recorded 03/25/20 8:34AM by Monik ferrer (Keven samano through Milly Flores MD), Office Visit; Refill [...] [employer] monthly 08/[address] Joana hutton; 0; Recorded 12/15/19 11:17AM by Taylor Singleton [...] Updated DateTime 5 172.72 cm 61.2 kg/m2 429481. 29 g 97.5 [degF] 90 /min 95 % 126/74 mm[Hg] Taylor Pikeobloch [facility] 5 09:01:53 Social History Question Answer Notes LastModified by Organizat Shake Details LastModified Time Tobacco Smoking Status Former Smoker [facility] 03/28/2023 12:42:23 When Did You Quit Smoking? 6-10yearssin [email or web address] tte Information not available 03/28/2023 What Was The Date Of Your Most Recent Tobacco Screening? 08/15/2025 [email or web address] Information not available 08/15/2025 Sex: Unknown Functional Status Question Answer Note LastModified by Organizat ion Details LastModified Time Do you use any illicit or recreational drugs? No Information not available 03/28/2023 Do you or have you ever used any other forms of tobacco or nicotine? Yes [email or web address] Information not available 09/17/2023 What is your level of alcohol consumption? None Information not available 03/28/2023 Do you or have you ever used e-cigarettes or vape? Former user of electronic cigarettes [email or web address] Information not available 09/05/2025 Mental Status None recorded. Family History Relationship Description Onset Age of this Age Resolved Age Notes LastModified by Organization Details LastModified Time Mother Leukemia [email or web address] Not availab le 09/27/2023 14:30:47 Medical History [...] 50 mcg/0.25mL dose 1 completed MARIAJOSE brown [facility] 03/28/2023 12:37:01 COVID-19, mRNA, LNP-S, PF, 100 mcg/0.5mL dose or 50 mcg/0.25mL dose 1 completed MARIAJOSE brown [facility] 03/28/2023 12:37:02 Tdap 2 completed MARIAJOSE brown [facility] 03/28/2023 12:37:02 Td(adult) unspecified formulation 3 completed Not Available [facility] 11/28/2023 08:01:18 Influenza, split virus, trivalent, preservative 0 completed Not Available [facility] 11/28/2023 08:01:18 Influenza, split virus, trivalent, preservative 7 completed Not Available [facility] 11/28/2023 08:01:18 Influenza, split virus, trivalent, preservative 5 completed Not Available [facility] 11/28/2023 08:01:18 Past Encounters Encounter ID Performer Location Encounter Start Date Encounter Closed Date Diagnosis/Indication Diagnosis SNOMED-CT Code Diagnosis ICD10 Code Diagnosis IMO Codes Diagnosis Note [id number] SCHUYLER SUTTON APRN [facility] ([facility]) [address] [place] [address] 08/15/2025 08:06:47 08/15/2025 08:32:44 Acute otitis externa of left ear 8029854829 390675 H60.502 [id number] Milly Flores MD [facility] ([facility]) [address] [place] [address] 09/05/2025 08:47:58 09/05/2025 12:33:19 Upper respiratory infection 53959711 J06.9 62371340 Acute bronchitis 5496539 2 J20.9 49244850 Health Concerns Section Related Observation LastModified by Organization Detai ls LastModified Time None Recorded Concern Status LastModified by Organization Details LastModified Time None Recorded Payers Encounter Date Sequence Insurance Name Policy Number Policy Pedraza Covered Member ID Pedraza Member ID Guarantor Name 09/05/2025 1 [place] Laila A Hixenbaugh [id number] Laila A Hixenbaugh 09/05/2025 2 [place] Laila A Hixenbaugh [id number] Laila A Hixenbaugh Notes Date Note Type Note Provider Name and Address Organization Details Recorded Time 5 text/html Pre-OpReported by PatientHPIFor risk factors, patient reportsobstructive sleep apnea (uses apap machine)andobesebut reportsno malnutrition,non-smoker, no alcohol misuse, andno illicit drug use. For [...] less than 2 weeks (3 days). Milly Flores MD [address] [place], [address], [facility], Sridhar 09/05/2025 09:22:43 OBGyn Episode No OBEpisode recorded.
--- OUTSIDE RECORDS SUMMARY | 2025-09-16 00:07 | XMS_ITS | Clinical Summary ---
Author Organization [facility] National Address [address] [place] [address] Care Team Providers Care Head Packager Name Role Phone Unavailable Primary Care Provider [...] patient's age to complete this topic Insurance [facility]
--- NOTE | 2025-09-16 00:14 | XRR_ITS ---
PROCEDURE INFORMATION: Exam: XR Left Shoulder Exam date and time: 09/16/2025 1:05 AM Age: 44 years old Clinical indication: Pain; Shoulder; Left; Prior surgery; Surgery date: 6+ months; Surgery type: Lt labrum 2018; Additional info: Lt shoulder pain; Non traumatic; HX lt labrum repair 2017 TECHNIQUE: Imaging protocol: Radiologic exam of the left shoulder. Views: 2 or more views. COMPARISON: CR (CHEST, ) 09/27/2023 3:32 PM FINDINGS: Bones/joints: No acute fracture or dislocation. Diffuse osseous demineralization. Mild osteophytic spurring of the inferomedial humeral head. Soft tissues: Normal. XR/XR shoulder LT min 2V* 14537 IMPRESSION: 1. No acute fracture or dislocation. 2. Mild osteophytic spurring of the inferomedial humeral head.
[2025-09-16 00:58] VITALS: RESP 18; O2SAT 97
[2025-09-16] MEDS: oxyCODONE 5 mg IR Tab/Cap PO (00:58)
[2025-09-16 01:02] VITALS: BP 136/80; PULSE 100; O2SAT 97
--- NOTE | 2025-09-16 01:56 | ED_ITS ---
HPI - Extremity Problem General: Chief complaint: Extremity Problem,Nontraumatic Stated complaint: left Shoulder Pain Time Seen by Provider: 09/16/25 00:25 History of Present Illness: Patient is a 44-year-old female with a history of left shoulder dislocation in 2005 and labral repair surgery in 2018, presenting with three days of severe left shoulder and upper arm pain. She reports difficulty moving the arm, pain radiating from the top of the shoulder down and thinks shes noticed a knot to the front of her shoulder.. The pain is exacerbated by movement and has impaired her ability to drive and perform daily activities. She denies recent trauma but notes increased activity due to moving boxes and is unsure if the pain is related to overuse, improper lifting, or sleeping position. She has tried Tylenol, heat, and ice with minimal relief. She is scheduled for bariatric surg sita in the future and has been advised to avoid NSAIDs, and is also awaiting carpal tunnel surgery on October 02. She has previously undergone physical therapy for her shoulder. Associated symptoms: Deny chest pain, fever(s) or rash Related Data Home Medications ?Medication ?Instructions ?Recorded ?Confirmed albuterol sulfate 90 mcg/actuation 1 - 2 puff inhalati on Q4H PRN 12/10/19 08/29/25 aerosol inhaler (ProAir HFA) shortness of breath albuterol sulfate 2.5 mg/3 mL 2.5 mg inhalation Q4H NC N 01/21/21 08/29/25 (0.083 %) solution for nebulization Shortness Of Breat h pantoprazole 40 mg tablet,delayed 40 mg PO QAM 06/08/ 1 08/29/25 release acetaminophen 500 mg tablet 1,000 mg PO Q6H PRN Pain 0 02/23/22 08/29/25 ibuprofen 200 mg tablet 800 mg PO Q6H PRN Pain 02/2308/29/25 losartan 25 mg tablet 25 mg PO QAM 07/12/23 onabotulinumtoxinA 100 unit 155 unit SUBCUT .q 3 month s 09/22/23 08/29/25 solution for injection (Botox) montelukast 10 mg tablet 10 mg PO BEDTIME 11/13/23 (Singulair) levocetirizine 5 mg tablet (Xyzal) 5 mg PO DAILY 01/3108/29/25 azelastine 137 mcg-fluticasone 50 1 spray intranasal B ID 03/29/24 08/29/25 mcg/spray nasal spray nateglinide 60 mg tablet 60 mg PO TID 10/30/24 bipap 07/25/25 08/29/25 nebulizer 07/25/25 08/29/25 Previous Rx's ?Medication ?Instructions ?Recorded ondansetron HCl 4 mg tablet 4 mg PO Q6H PRN nausea and 02/23/22 vomiting #20 tabs tirzepatide 15 mg/0.5 mL 15 mg (0.5 mL) SUBCUT Q7D 1 month 03/29/25 subcutaneous pen injector #2.5 mL (Jesús) blood-glucose sensor (Dexcom G7 #9 ea 04/05/25 Sensor device) blood-glucose,technology applications engineer,cont #1 ea 04/05/25 (Dexcom G7 Business Continuity Management Director) insulin degludec 100 unit/mL (3 160 unit (1.6 mL) SUBC UT DAILY 04/05/25 mL) subcutaneous pen ( #150 mL FlexTouch U-100 insulin) miscellaneous medical supply 1 ea miscellaneous .prn # 1 ea 05/03/25 rimegepant 75 mg disintegrating See Rx Instructions .R oute 05/15/25 tablet (Nurtec ODT) .COMPLEX #8 tabs atorvastatin 20 mg tablet See Rx Instructions .Route 0 06/28/25 .COMPLEX #90 tabs gabapentin 100 mg capsule See Rx Instructions .Route 0 06/28/25 .COMPLEX #270 caps metoprolol succinate 100 mg See Rx Instructions .Route 07/01/25 tablet,extended release 24 hr .COMPLEX #180 tabs bupropion HCl 300 mg 24 hr tablet, 300 mg PO DAILY 30 days #30 tabs 07/08/25 extended release buspirone 7.5 mg tablet 7.5 mg PO BID #60 tabs 07/08 pramipexole 0.5 mg tablet 0.5 mg PO BID #60 tabs 07/08 venlafaxine 75 mg capsule,extended 225 mg (3 x 75 mg) PO QAM 30 days 07/08/25 release 24 hr (Effexor XR) #90 caps aripiprazole 10 mg tablet (Abilify) 10 mg PO DAILY #30 tabs 08/23/25 budesonide 160 mcg-glycopyr 9 2 inh inhalation BID #10 .7 grams 08/26/25 mcg-formot 4.8 mcg/actuation HFA inhaler (Breztri Aerosphere) cyclobenzaprine 10 mg tablet 10 mg PO TID PRN muscle s pasm #20 09/16/25 tabs oxycodone 5 mg tablet 5 mg PO TID PRN pain #7 tabs 09/16/25 Allergies Allergy/AdvReac Type Severity Reaction Status Date / Time aspirin Allergy Severe ADR-Vomitin Verified 08/26/25 09:46 g lamotrigine (From Lamictal) Allergy Severe ALGY-Hives Verified 08/26/25 09:46 morphine Allergy Severe ALGY-Rash Verified 08/26/25 09:46 walnut Allergy Severe ALGY-Hives Verified 08/26/25 09:46 citalopram AdvReac Severe ADR-Halluci Verified 08/26/25 09:46 nating prednisone AdvReac Severe vomitting Verified 08/26/25 09:46 Review of Systems General: Reports: 10 or more systems reviewed and unremarkable except in HPI and below Const: Denies: fever(s) or chills Eyes: Denies: change in vision or eye discharge Card: Denies: chest pain, palpitations or swelling of feet/ankles Resp: Denies: dyspnea or productive cough GI: Denies: abdominal pain or diarrhea Musc: Reports: extremity pain and extremity swelling; Denies: neck pain or back pain Skin/Breast: Denies: rash or jaundice Neuro: Denies: headache(s), numbness in extremities or weakness in extremities Karan/Lymph: Denies: easy bruising or easy bleeding PFSH ED PFSH: Medical History (Updated 09/16/25 @ 01:51 by Cyrus Simon DO) Diabetes Nicotine dependence, cigarettes, uncomplicated Psychiatric care History of COPD History of restless legs syndrome History of neuropathy Chronic bronchitis Morbid obesity Common migraine with intractable migraine Borderline personality disorder Sleep apnea, unspecified Post-traumatic stress disorder, chronic Surgical History History of hysterectomy History of shoulder surgery History of tubal ligation History of endometrial ablation History of bladder repair surgery Family History Brother Diabetes Mother , Acute leukemia at age 42 Cancer Father Cancer Stage IV Kidney Cancer Grandmother Diabetes maternal Grandfather Stroke maternal Social History Smoking and tobacco/nicotine status: current every day tobacco/nicotine user cigarettes Packs smoked per day: 0.50 Years cigarettes smoked: 25 and e- cigarettes E-Cigarette Details: e-cigarette and with nicotine E-cig/vape details: 1200 puff vape that last about a month Quit status (tobacco/nicotine): considering quitting Second hand smoke exposure: Yes Alcohol intake: current Alcohol intake frequency: holidays/special occasions only Alcohol type: hard liquor Substance/Drug Use: current Substance/Drug use frequency: few times a month Other substance/drug use details: 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, 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 Adopted: No Caregiver/support person: Yes (sets up medication, VS and toenails and caregiver that cleans) Lives independently: Yes Household members: children Housing: Manufactured/Mobile home Marital status: Number of children: 3 Highest education level completed: Associate Degree: Occupational, Technical, Vocational Program 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, 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: No Current occupational status: disabled Pets and animals: Yes Pets & animals: cat(s) and dog(s) Leisure activites: art, games and other Leisure activities details: watch movies Sexually active: No Do you think of yourself as: Straight/Heterosexual Current gender identity: Female Carolee/Adventist: Wicca Special carolee needs: No Agree to transfusion: Yes Female Reproductive History: Para: 3 Spontaneous abortions: No Physical Exam Narrative: EXAM NARRATIVE: L shoulder with no obvious deformity, good coloration, no skin tenting, moderate diffuse anterior shoulder ttp, nothing pinpoint, no palpable masses, pain elicited with PROM, in abduction and ER, nl ROM and no ttp to L elbow and L wrist, compartments soft, 2+ radial pulse. Course Vital Signs: Vital signs: Vital Signs Temperature 98.4 F 09/16/25 00:05 Pulse Rate 98 09/16/25 02:11 Respiratory Rate 18 09/16/25 00:58 Blood Pressure 122/83 09/16/25 02:11 Pulse Oximetry 100 09/16/25 02:11 Oxygen Delivery Me thod Room Air 09/16/25 00:05 MDM - Extremity (Nontraumatic) Medical Decision Making -ddx: shoulder dislocation, fracture, tendinitis, AC/SC joint separation, rotator cuff injury, labral injury -patient overall well appearing, with prev L shoulder orthopedic issues, with no obvious injury recently but progressive sx, limited PROM on exam, but NV intact LUE, no obvious signs of trauma. XR with no fracture or dislocation, AC/SC joint separation, with an otherwise reassuring NV and MSK exam, she was able to be given and discharged on multmodal pain medicaiton regimen and Ortho fu as needed in a week if symptoms dont improve with supportive care recommendations given, dc'd in stable condition with at bedside. Lab Data Radiology Impressions Shoulder X-Ray 09/16/25 00:14 IMPRESSION: 1. No acute fracture or dislocation. 2. Mild osteophytic spurring of the inferomedial humeral head. All radiology interpretation(s) finalized by discharge Discharge Plan Discharge Patient Disposition: Home Clinical Impression: Acute pain of left shoulder, Osteophyte Condition: Stable Prescriptions: New cyclobenzaprine 10 mg tablet 10 mg PO TID PRN (Reason: muscle spasm) Qty: 20 0RF oxycodone 5 mg tablet 5 mg PO TID PRN (Reason: pain) Qty: 7 0RF No Action pantoprazole 40 mg tablet,delayed release (DR/EC) 40 mg PO QAM albuterol sulfate [ProAir HFA] 90 mcg/actuation HFA aerosol inhaler 1 - 2 puff INHALATION Q4H PRN (Reason: shortness of breath) albuterol sulfate 2.5 mg /3 mL (0.083 %) solution for nebulization 2.5 mg inhalation Q4H PRN (Reason: Shortness Of Breath) nateglinide 60 mg tablet 60 mg PO TID Rx Instructions: give before meal(s) Mounjaro 15 mg/0.5 mL pen injector 15 mg SUBCUT Q7D 30 Days Qty: 2.5 3RF miscellaneous medical supply Misc 1 ea miscellaneous .prn Qty: 1 0RF Breztri Aerosphere 160-9-4.8 mcg/actuation HFA aerosol inhaler 2 inh inhalation BID Qty: 10.7 11RF Botox 100 unit recon soln 155 unit SUBCUT .q 3 months losartan 25 mg tablet 25 mg PO QAM azelastine-fluticasone 137-50 mcg/spray spray,non-aerosol 1 spray intranasal BID Rx Instructions: administer into each nostril levocetirizine [Xyzal] 5 mg tablet 5 mg PO DAILY buspirone 7.5 mg tablet 7.5 mg PO BID Qty: 60 2RF bupropion HCl 300 mg tablet extended release 24 hr 300 mg PO DAILY 30 Days Qty: 30 2RF venlafaxine [Effexor XR] 75 mg capsule,extended release 24hr 225 mg PO QAM 30 Days Qty: 90 2RF pramipexole 0.5 mg tablet 0.5 mg PO BID Qty: 60 2RF (DME) bipap 0 .Route .MEDSUPPLY (DME) nebulizer 0 .Route .MEDSUPPLY insulin degludec [Tresiba FlexTouch U-100] 100 unit/mL (3 mL) insulin pen 160 unit SUBCUT DAILY 90 Days Qty: 150 1RF (DME) Dexcom G7 Business Continuity Management Director Misc See Rx Instructions .Route Qty: 1 0RF Rx Instructions: As directed (DME) Dexcom G7 Sensor Device See Rx Instructions .Route Qty: 9 0RF Rx Instructions: change sensors every 10 days Nurtec ODT 75 mg tablet,disintegrating See Rx Instructions .ROUTE .COMPLEX Qty: 8 3RF Dose Instruction: DISSOLVE ONE TABLET BY MOUTH once daily NEEDED for migraine Rx Instructions: DISSOLVE ONE TABLET BY MOUTH once daily NEEDED for migraine gabapentin 100 mg capsule See Rx Instructions .ROUTE .COMPLEX Qty: 270 3RF Dose Instruction: take 1 capsule BY MOUTH THREE TIMES DAILY Rx Instructions: take 1 capsule BY MOUTH THREE TIMES DAILY atorvastatin 20 mg tablet See Rx Instructions .ROUTE .COMPLEX Qty: 90 0RF Dose Instruction: TAKE 1 TABLET BY MOUTH EVERY DAY FOR ONE MONTH Rx Instructions: TAKE 1 TABLET BY MOUTH EVERY DAY FOR ONE MONTH metoprolol succinate 100 mg tablet extended release 24 hr See Rx Instructions .ROUTE .COMPLEX Qty: 180 3RF Dose Instruction: TAKE 1 TABLET BY MOUTH TWICE DAILY Rx Instructions: TAKE 1 TABLET BY MOUTH TWICE DAILY aripiprazole [Abilify] 10 mg tablet 10 mg PO DAILY Qty: 30 2RF acetaminophen 500 mg Tablet 1,000 mg PO Q6H PRN (Reason: Pain) ibuprofen 200 mg Tablet 800 mg PO Q6H PRN (Reason: Pain) ondansetron HCl 4 mg tablet 4 mg PO Q6H PRN (Reason: nausea and vomiting) Qty: 20 0RF Singulair 10 mg tablet 10 mg PO BEDTIME Discharge Orders: Discharge ED (Routine); Ordered 09/16/25 Ordered By: Cyrus Simon Referrals: Racquel Sinclair III, MD [Staff Physician, Orthopedics] - 7-10 days Patient Instructions: Opioid Safety, Pain Management, Patient Portal & Geovanna Instructions Activity Restrictions/Additional Instructions: You were seen for your left shoulder pain, you were evaluated with an x-ray which did not find you to have any fracture or dislocation, you had a bone spur that is most likely irritating one of your nearby nerves and causing her symptoms as well as a partial issue/sprain with your labrum surrounding her shoulder. The treatment for both of these things is rest and see if it improves on its own, alternate heating pads and ice packs 20 minutes at a time every few hours. In addition, alternate ibuprofen 40 mg and Tylenol 650 mg every 4 hours as needed for the pain, for breakthrough pain, use oxycodone 5 mg every 8 hours as needed on top of this, do not drive or operate heavy machinery with this medication as it can be sedating. For any associated spasms, use the muscle relaxant, Flexeril, 10 mg every 8 hours as needed as well. If with rest, these medications, your pain is not getting any better over the next week, follow-up with orthopedics clinic listed above for reevaluation of your shoulder and to see if a MRI is warranted. Return to the ED with severe worsening of your pain, inability to move or feel your arm, fevers, any other emergent concerns. Print Language: Chilean Coding Level of Care Code ED Operations Logistics Analyst for Sheila Meraz
[2025-09-16 02:11] VITALS: BP 122/83; PULSE 98; O2SAT 100
== END 2025-09-16 02:10 | disposition home or self-care (01) ==
PROVIDERS: Emergency Provider Student in an Organized Health Care Education/Training Program; PCP Family Medicine
DX: M25.712 Osteophyte, left shoulder (principal); M25.512 Pain in left shoulder
CPT/HCPCS: 73030; 96372; 99284; J1885; J9999

== ENCOUNTER 2025-09-20 11:48 | Outpatient (CLI) | payer MEDICARE, MEDICAID, SELFPAY ==
[2025-01-24 14:58] VITALS: BP 168/70; BMI 58.5
[2025-09-20 12:58] LABS: Estmated Average Glucose 209; Hemoglobin A1C 8.9 % (4.0-6.0)
[2025-09-20 13:02] LABS: Creatinine Urine, Random 55 mg/dL (28-217); Microalbum Creatinine Ratio Ur 18 mg/dL (0-20)
[2025-09-20 13:05] LABS: Alanine Aminotransferase 22 U/L (0-33); Albumin Level 3.8 g/dL (3.5-5.2); Alkaline Phosphatase 115 U/L (35-105); Anion Gap 12.1 (5-19); Aspartate Amino Transferase 16 U/L (0-32); Blood Urea Nitrogen 9 mg/dL (6-20); Calcium 8.8 mg/dL (8.5-10.5); Carbon Dioxide 28 mmol/L (22-29); Chloride 99 mmol/L (98-107); Cholesterol 140 mg/dL (0-200); Globulin 3.2 g/dL (1.3-4.6); Glucose 200 mg/dL (65-115); HDL Cholesterol 33 mg/dL (60-100); Osmolality Calculated 284 mOsm/kg (285-295); Potassium 4.1 mmol/L (3.5-5.1); Sodium 135 mmol/L (136-145); Total Protein 7.0 g/dL (6.6-8.7); Triglycerides 107 mg/dL (0-150)
== END 2025-09-20 11:49 | disposition home or self-care (01) ==
LOC: LAB 11:49
PROVIDERS: PCP Family Medicine; Visit Provider Internal Medicine
DX: E11.9 Type 2 diabetes mellitus without complications (principal); E78.2 Mixed hyperlipidemia; I10 Essential (primary) hypertension
CPT/HCPCS: 36415; 80053; 80061; 82044; 83036

== ENCOUNTER → 2025-09-26 12:40 | Outpatient (BNVA) | payer MEDICARE, MEDICAID, SELFPAY ==
[2025-09-24 15:46] VITALS: BP 122/83; BMI 61.2
== END ==
PROVIDERS: PCP Family Medicine; Visit Provider Orthopaedic Surgery
DX: M19.012 Primary osteoarthritis, left shoulder (principal)
CPT/HCPCS: 20610; 99214; J3301; J3490; J9999

== ENCOUNTER 2025-10-02 09:27 | Day surgery (SDC) | payer MEDICARE, MEDICAID, SELFPAY ==
[2025-01-24 14:58] VITALS: BP 168/70; BMI 58.5
[2025-09-24 15:46] VITALS: BP 122/83; BMI 61.2
[2025-10-02] VITALS (11 sets, daily range): BP systolic 81–139; BP diastolic 53–88; PULSE 75–83; RESP 17–24; TEMP 36.2–36.8; O2SAT 91–95; BMI 60.2
--- NOTE | 2025-10-02 10:23 | ANES.PREANE2 ---
Pre-Anesthetic Assessment Height/Weight: Height 5 ft 8 in Weight 396 lb Temp Pulse Resp BP Pulse Ox O2 Del Method 98.2 F 83 18 139/88 94 Room Air 10/02/25 09:49 10/02/25 09:49 10/02/25 09:49 10/02/25 09:49 10/02/25 09:49 10/02/25 09:53 Preop Diagnosis: Carpal/cubital tunnel syndrome Operation Date: 10/02/25 11:10 Proposed Procedures p RIGHT Carpal Tunnel Release(Right) - Andre Juares MD s RIGHT Cubital Tunnel Release(Right) - Andre Juares MD Was Beta Fabby taken within 24 hours: N/A Was Clonidine taken within 24 hours: N/A Last intake: Intake Last Liquid Date 10/01/25 Last Liquid Time 22:00 Last Solid Date 10/01/25 Last Solid Time 20:00 Social No alcohol and No tobacco Exam alert, oriented x 3, clear to auscultation bilaterally and regular rate & rhythm Airway Submandibular: Other (Large neck circumference) Cervical ROM: within normal limits Mallampati: Class II Comments: Comments: Edentulous Anesthetic Plan ASA status: 3 Anesthesia: General Other: No prior issues with anesthesia NPO since yesterday evening IDDM, preop BS 191. Tirzepatide last taken 09/20/2025 History of hypertension on losartan GERD on Protonix BMI 60 ELO wears CPAP Denies smoking Labs from 09/20/2025 reviewed acceptable for procedure Plan for GETA with video laryngoscopy Medications/Allergies Home Medications ?Medication ?Instructions ?Recorded ?Confirmed ?Last Taken ?Type albuterol sulfate 90 mcg/actuation 1 - 2 puff inhalation Q4H PRN 12/10/19 10/02/25 11/04/22 09:00 History aerosol inhaler (ProAir HFA) shortness of breath albuterol sulfate 2.5 mg/3 mL 2.5 mg inhalation Q4H PRN 01/21/21 10/02/25 10/07/21 History (0.083 %) solution for nebulization Shortness Of Breath pantoprazole 40 mg tablet,delayed 40 mg PO QAM 06/08/21 10/01/25 10/02/25 History release acetaminophen 500 mg tablet 1,000 mg PO Q6H PRN Pain 02/23/22 10/01/25 09/30/25 History ibuprofen 200 mg tablet 800 mg PO Q6H PRN Pain 02/23/22 10/02/25 06/18/23 08:00 History losartan 25 mg tablet 25 mg PO QAM 07/12/23 10/01/25 10/01/25 History onabotulinumtoxinA 100 unit 155 unit SUBCUT .q 3 months 09/22/23 10/01/25 08/26/25 History solution for injection (Botox) montelukast 10 mg tablet 10 mg PO BEDTIME 11/13/23 10/01/25 10/01/25 History (Singulair) levocetirizine 5 mg tablet (Xyzal) 5 mg PO DAILY 02/01/24 10/01/25 10/01/25 History nateglinide 60 mg tablet 60 mg PO TID 10/30/24 10/01/25 10/01/25 History blood-glucose sensor (Dexcom G7 #9 ea 04/05/25 09/26/25 Unknown Rx Sensor device) blood-glucose,utilities manager,cont #1 ea 04/05/25 09/26/25 Unknown Rx (Dexcom G7 Software Project Manager) insulin degludec 100 unit/mL (3 160 unit (1.6 mL) SUBCUT DAILY 90 04/05/25 10/01/25 10/01/25 Rx mL) subcutaneous pen (Tresiba days #150 mL FlexTouch U-100 insulin) miscellaneous medical supply 1 ea miscellaneous .prn #1 ea 05/03/25 10/02/25 Unknown Rx rimegepant 75 mg disintegrating See Rx Instructions .Route 05/15/25 10/01/25 09/30/25 Rx tablet (Nurtec ODT) .COMPLEX #8 tabs gabapentin 100 mg capsule See Rx Instructions .Route 06/28/25 10/02/25 10/01/25 Rx .COMPLEX #270 caps bupropion HCl 300 mg 24 hr tablet, 300 mg PO DAILY 30 days #30 tabs 07/08/25 10/01/25 10/01/25 Rx extended release buspirone 7.5 mg tablet 7.5 mg PO BID #60 tabs 07/08/25 10/01/25 10/01/25 Rx pramipexole 0.5 mg tablet 0.5 mg PO BID #60 tabs 07/08/25 10/01/25 10/01/25 Rx venlafaxine 75 mg capsule,extended 225 mg (3 x 75 mg) PO QAM 30 days 07/08/25 10/01/25 10/01/25 Rx release 24 hr (Effexor XR) #90 caps bipap 07/25/25 09/26/25 Unknown History nebulizer 07/25/25 09/26/25 Unknown History aripiprazole 10 mg tablet (Abilify) 10 mg PO DAILY #30 tabs 08/23/25 10/01/25 10/01/25 Rx budesonide 160 mcg-glycopyr 9 2 inh inhalation BID #10.7 grams 08/26/25 10/01/25 10/01/25 Rx mcg-formot 4.8 mcg/actuation HFA inhaler (Breztri Aerosphere) cyclobenzaprine 10 mg tablet 10 mg PO TID PRN muscle spasm #20 09/16/25 10/01/25 10/01/25 Rx tabs tirzepatide 15 mg/0.5 mL 15 mg (0.5 mL) SUBCUT Q7D 1 month 09/30/25 10/01/25 09/20/25 Rx subcutaneous pen injector #2 mL (Jesús) atorvastatin 20 mg tablet See Rx Instructions .Route 10/01/25 10/01/25 10/01/25 Rx .COMPLEX #30 tabs metoprolol succinate 100 mg 100 mg PO BID 10/01/25 10/01/25 10/02/25 History tablet,extended release 24 hr Allergies Allergy/AdvReac Type Severity Reaction Status Date / Time aspirin Allergy Severe ADR-Vomitin Verified 10/01/25 12:47 g lamotrigine (From Lamictal) Allergy Severe ALGY-Hives Verified 10/01/25 12:47 morphine Allergy Severe ALGY-Rash Verified 10/01/25 12:47 walnut Allergy Severe ALGY-Hives Verified 10/01/25 12:47 citalopram AdvReac Severe ADR-Halluci Verified 10/01/25 12:47 nating prednisone AdvReac Severe vomitting Verified 10/01/25 12:47 Current Medications Generic Name Dose Route Start Last Admin Trade Name Freq PRN Reason Stop Dose Admin Sodium Chloride 1,000 mls @ 30 mls/hr 10/02/25 09:45 10/02/25 10:03 Sodium Chloride 0.9% IV 10/03/25 09:44 30 mls/hr .Q24H JUD Administration PFSH Anesthesia Medical History (Updated 09/26/25 @ 16:09 by Andre Juares MD) Diabetes Nicotine dependence, cigarettes, uncomplicated Psychiatric care History of COPD History of restless legs syndrome History of neuropathy Chronic bronchitis Morbid obesity Common migraine with intractable migraine Borderline personality disorder Sleep apnea, unspecified Post-traumatic stress disorder, chronic Surgical History History of hysterectomy History of shoulder surgery History of tubal ligation History of endometrial ablation History of bladder repair surgery Family History Brother Diabetes Mother , Acute leukemia at age 42 Cancer Father Cancer Stage IV Kidney Cancer Grandmother Diabetes maternal Grandfather Stroke maternal Social History Smoking and tobacco/nicotine status: never used tobacco/nicotine Quit status (tobacco/nicotine): considering quitting Second hand smoke exposure: Yes Alcohol intake: current Alcohol intake frequency: holidays/special occasions only Alcohol type: hard liquor Substance/Drug Use: current Substance/Drug use frequency: few times a month Other substance/drug use details: 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, 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 Adopted: No Caregiver/support person: Yes (sets up medication, VS and toenails and caregiver that cleans) Lives independently: Yes Household members: children Housing: Manufactured/Mobile home Marital status: Number of children: 3 Highest education level completed: Associate Degree: Occupational, Technical, Vocational Program 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
--- NOTE | 2025-10-02 10:50 | W.PM.OPSUD ---
Surgery/Procedure H&P Update DATE OF PROCEDURE: October 02, 2025 DATE H&P PERFORMED: 08/12/25 H&P UPDATE INFORMATION: I have reviewed H&P completed within last 30 days, I have examined patient prior to procedure and No changes to prior documentation PREOP DIAGNOSIS: Carpal/cubital tunnel syndrome PLANNED PROCEDURE: Operation Date: 10/02/25 11:10 Proposed Procedures p RIGHT Carpal Tunnel Release(Right) - Andre Juares MD s RIGHT Cubital Tunnel Release(Right) - Andre Juares MD
[2025-10-02] MEDS: ceFAZolin 3,000 MG in sodium chloride 0.9% (plus) 100 ML 200 MG IV (11:24)
[2025-10-02] MEDS: BUPivacaine 0.5% INJ 30 mL INJECTION (12:14)
--- NOTE | 2025-10-02 12:22 | P.OP_ITS ---
Operative Report Date of procedure: October 02, 2025 Surgeon: Andre Juares MD Procedure: Preoperative diagnosis: Carpal tunnel syndrome of the right upper extremity and cubital tunnel syndrome Postoperative diagnosis: Same Procedure: Right cubital tunnel release with partial medial epicondylectomy and right carpal tunnel release: T Surgeon: Andre Juares MD Reimbursement Counselor: ZUHAIR Norman's assistance was necessary for assistance during the procedure due to the size of this patient. Assistance with wound closure and dressing placement Anesthesia: General Tourniquet time: 31 minutes at 250 minutes mercury Indications: Laila is a 44-year-old white female referred in from neurology with positive nerve conduction test demonstrating severe carpal tunnel nerve compression as well as cubital tunnel compression. She had failed all conservative measures and therefore was referred over to orthopedics for surgical release of these nerves. All risk benefits treatment alternatives were discussed with the patient she was understanding of this. She is also had discussed with her the fact that it may take up to 17 weeks to know how well either these releases have helped with the compression of her nerves. She also understands that she may have permanent nerve damage already within these nerves and may always have some symptoms of numbness tingling or weakness in this upper extremity. All risk benefits treatment alternatives discussed she was agreeable to proceed with surgical intervention. Patient understands that general anesthetic is of a high risk because of her BMI Procedure: After obtaining her consent patient was taken to the operative room placed on the operative table supine position general anesthetic administered. Once K[place] was achieved right upper extremities prepped and draped usual fashion. At this point a sterile tourniquet was placed around the proximal right arm. Surgical timeout was administered at the same time gravity exsanguination was done to the arm. At this point pneumatic cuff is inflated 250 mmHg. Elbow was put on the elbow bump of the arm was actually rotated to expose the medial epicondylar region. Curvilinear incision was made centered over the medial epicondyle and sharp dissection taken down to subcutaneous tissues. Electrocautery used for hemostasis. Blunt sharp dissection was done with Metzenbaum scissors all the way down to the fascia overlying the ulnar nerve. She was found to be very adhered with all tissues in this area. And very difficult dissection of the ulnar nerve to remove all scarred tissue adhered to the ulnar nerve. This was done with stepwise fashion until the ulnar nerve could be mobilized within the cubital tunnel. Also dissection taken all the way up to the fibrous arch approximately on the ulnar nerve. At this point with flexion extension of the elbow was found that the ulnar nerve was being quite stretched around the medial epicondyle. Therefore, at this point periosteum was raised on the anterior and posterior aspect of the medial epicondyle and using a small osteotome and mallet partial medial epicondylectomy was done to decompress the area. Once this was found to be adequate periosteum was sutured back across it to cover the raw bone with 3-0 Vicryl [id number] sutures. At this point further evaluation of the ulnar nerve demonstrated that as much release was done that could be done safely. Retractors were removed. Subcutaneous tissue reapproximated 3-0 Vicryl interrupted sutures. Skin was closed with running horizontal mattress suture of 3-0 Prolene. Attention was then turned towards the carpal tunnel. #15 blade was then used to make a longitudinal incision from the distal flexion crease of the palmar surface of the wrist along the ulnar border of the mid palmar crease distally approximately 2 to 2-1/2 cm in length. Sharp dissection was taken on down to the transverse carpal ligament. This was divided along the course of the skin incision until down into the carpal tunnel region. Subsequently Metzenbaum scissors and blunt sharp flexion were then used to divide the transverse carpal ligament both proximally and distally and decompression was confirmed. Skin was then closed with running horizontal mattress 3-0 Prolene sutures again. All wounds were injected with half percent Marcaine postoperatively for pain control. Wounds were then cleaned and dry dressed with Xeroform gauze sterile gauze dressing Kerlix wrap and an Vasu wrap for compression. Patient placed in an arm sling for comfort. Patient was then awakened transferred to cover room in stable condition
[2025-10-02] MEDS: HYDROcodone-acetaminophen 5-325 mg Tablet 1 TAB PO (13:18)
--- NOTE | 2025-10-02 14:37 | ANE.PACU2 ---
Inpatient post-anesthesia follow up: Airway intact: Yes Vital signs: Temperature 97.2 F Pulse Rate 79 Respiratory Rate 18 Blood Pressure 117/63 Pulse Oximetry 94 Oxygen Delivery Me thod Room Air Oxygen Flow Rate 2 Fraction of Inspir ed Oxygen Hydration adequate: Yes Nausea and vomiting: No Pain level: 1 Mental status: Baseline
== END 2025-10-02 13:37 | disposition home or self-care (01) ==
PROVIDERS: PCP Family Medicine; Visit Provider Orthopaedic Surgery
PROC: (CPT 64721; principal; 2025-10-02 11:10)
PROC: (CPT 64718; 2025-10-02 11:10)
DX: G56.01 Carpal tunnel syndrome, right upper limb (principal); G56.21 Lesion of ulnar nerve, right upper limb; E11.9 Type 2 diabetes mellitus without complications; I10 Essential (primary) hypertension; K21.9 Gastro-esophageal reflux disease without esophagitis; G47.33 Obstructive sleep apnea (adult) (pediatric); Z99.89 Dependence on other enabling machines and devices; Z79.4 Long term (current) use of insulin; F17.210 Nicotine dependence, cigarettes, uncomplicated; J44.9 Chronic obstructive pulmonary disease, unspecified; G62.9 Polyneuropathy, unspecified; E66.01 Morbid (severe) obesity due to excess calories; Z68.44 Body mass index [BMI] 60.0-69.9, adult; F43.12 Post-traumatic stress disorder, chronic
CPT/HCPCS: 64718; 64721; 36416; 82962; J0690; J1100; J1885; J2405; J2704; J3010; J3490; J7030; J9999

== ENCOUNTER → 2025-10-11 08:10 | Outpatient (BNVA) | payer MEDICARE, MEDICAID, SELFPAY ==
[2025-09-24 15:46] VITALS: BP 122/83; BMI 61.2
== END ==
PROVIDERS: PCP Family Medicine; Visit Provider Orthopaedic Surgery
DX: Z98.890 Other specified postprocedural states (principal)
CPT/HCPCS: 99024

== ENCOUNTER → 2025-10-21 13:33 | Outpatient (BNVA) | payer MEDICARE, MEDICAID, SELFPAY ==
[2025-09-24 15:46] VITALS: BP 122/83; BMI 61.2
== END ==
PROVIDERS: PCP Family Medicine; Visit Provider Internal Medicine Endocrinology, Diabetes & Metabolism
DX: E11.9 Type 2 diabetes mellitus without complications (principal); E78.2 Mixed hyperlipidemia; E27.49 Other adrenocortical insufficiency
CPT/HCPCS: 99214

== ENCOUNTER 2025-10-23 08:00 | Outpatient (RCR) | payer MEDICARE, MEDICAID, SELFPAY ==
[2025-09-24 15:46] VITALS: BP 122/83; BMI 61.2
[2025-10-23] MEDS: cosyntropin 0.25 mg SDV IVP (08:17)
[2025-10-23 08:53] LABS: Cosyntropin Baseline 10.26 mcg/dL
[2025-10-23 09:31] LABS: Cosyntropin 30 Minute 18.42 mcg/dL
[2025-10-23 10:58] LABS: Cosyntropin 1 Hour 20.96 mcg/dL
== END 2025-10-23 23:55 | disposition home or self-care (01) ==
LOC: SPT 08:00
PROVIDERS: Internal Medicine Endocrinology, Diabetes & Metabolism; PCP Family Medicine; Visit Provider Orthopaedic Surgery
DX: M25.512 Pain in left shoulder (principal)
CPT/HCPCS: 82533; 96374; 97110; 97161; J0834